=== PATIENT | male | born 1960 | race Hispanic/Latino ===

== ENCOUNTER 2020-02-04 20:00 | Emergency (ER) | payer MEDICARE, OTHER ==
[~2020-02-04] VITALS: Ht 193 cm; Wt 111.6 kg
--- OUTSIDE RECORDS SUMMARY | ~2020-02-04 | XMS | Encounter Summary ---
Demographics + + + | Address | [address] | | | [place] [address] | + + + | Home Phone | | + + + | Preferred Language | Unknown | + + + | Marital Status | | + + + | Hoahaoism Affiliation | 1013 | + + + | Race | White | + + + | Ethnic Group | Not or | + + + Author + + + | Author | [facility] | | | and [place] | + + + | Organization | [facility] | | | and [place] | + + + | Address | Unknown | + + + | Phone | Unavailable | + + + Support + + + + + | Name | Relationship | Address | Phone | + + + + + | Abe Saunders | ECON | Unknown | | + + + + + | Bina Mustafa | ECON | [address] | | | | [place] | | | | | [address] | | + + + + + | Leslie Lentz | ECON | Unknown | | + + + + + Care Team Providers + +------+ + | Care Civil Structural Designer Name | Role | Phone | + +------+ + | Paulo Rothman MD | PCP | | + +------+ + Reason for Visit + +--------+ + | Reason | Onset | Comments | | | Date | | + +--------+ + | Surgery Appointment | 11/25/ | Pre surgical check in time and instructions | | | 2018 | | + +--------+ + Encounter Details +--------+ + + + + | Date | Type | Department | Care Team | Description | +--------+ + + + + | 08/03/ | Telephone | [facility] | Kai Gillespie MD | Surgery Appointment | | 2018 | | NEUROSURGERY [address] | [address] | (Pre surgical check | | | | [address] | [place] [address] | in time and | | | | [place] | [phone] | instructions) | | | | [address] | | | | | | [phone] | | | +--------+ + + + + Social History + + + +--------+ + | Tobacco Use | Types | Packs/Day | Years | Date | | | | | Used | | + + + +--------+ + | Former Smoker | Cigarettes | 1 | | Quit: 08/25/2006 | + + + +--------+ + + +---+---+---+ | Smokeless Tobacco: | | | | | Never Used | | | | + +---+---+---+ + + +---------+ + | Alcohol Use | Drinks/Week | oz/Week | Comments | + + +---------+ + | Yes | 0 Standard drinks | 0.0 | once a month | | | or equivalent | | | + + +---------+ + + + + | Sex Assigned at | Date Recorded | | | | + + + | Not on file | | + + + documented as of this encounter Functional Status + + + + | Functional Status | Response | Date of Assessment | + + + + | Are you deaf or do you have serious | No | 11/15/2016 | | difficulty hearing? | | | + + + + | Are you blind or do you have serious | No | 11/15/2016 | | difficulty seeing, even when wearing | | | | glasses? | | | + + + + | Do you have serious difficulty walking or | No | 11/15/2016 | | climbing stairs? (5 years old or older) | | | + + + + | Do you have difficulty dressing or bathing? | No | 11/15/2016 | | (5 years old or older) | | | + + + + | Because of a physical, mental, or emotional | Yes | 11/15/2016 | | condition, do you have difficulty doing | | | | errands alone such as visiting a doctor's | | | | office or shopping? [15 years old or | | | | older)] | | | + + + + + + + + | Cognitive Status | Response | Date of Assessment | + + + + | Because of a physical, mental, or emotional | No | 11/15/2016 | | condition, do you have serious difficulty | | | | concentrating, remembering, or making | | | | decisions? (5 years old or older) | | | + + + + documented as of this encounter Miscellaneous Notes Telephone Encounter - Jacqueline Doan Cert MA - 11/30/2017 4:09 PM PDTI called and spoke to patient, he will take the date of 12/15/17 for his surgery date. elephone Encounter - Jacqueline Doan Cert MA - 11/28/2017 3:03 PM PDTPatient called and he has been updated that his case needs to g o to a review before we can proceed with scheduling. Patient verbalized understanding. Elect ronically signed by Pierre León MA at 11/28/2017 3:03 PM PDTTelephone Encounter - Erik Romero - 11/28/2017 9:26 AM PDTPatient called in wondering why his surgery tomorrow has been cancelled. Please call back and adviseElectronically signed by Erik Romero at 09/2017 9:26 AM PDTTelephone Encounter - Jacqueline Doan Cert MA - 11/25/2017 11:47 AM PDT All presurgical check-in instructions given to patient. Surgery date: 11/29/17 Check-in Time: 6am (OR Schedule states procedure start time 0745) No solids or liquids after midnight the night before surgery. Follow the cleansing instructions provided beginning the night before surgery after you esme wer or bathe. No showering the morning of surgery. Please do not wear jewelry, contact lenses, nail mauritanian (on fingers or toes), or make-up to surgery check-in. If you have dentures, hearing aids, or glasses please bring the cases with you to check-in. Medications instructions: Aspirin seven days before surgery. Metformin three days before s urgery. Advised to hold Novolin N and Insulin detemir the morning of surgery Surgical Admit Anticipated Disposition reviewed and correct: "Yes Confirmation of procedure/approval: "Yes". PCP contacted to confirm patient cleared to proceed: I confirmed with patient that he has not been seen in the ED or had any surgeries since last saw our providers. ". Confirm local pharmacy: [facility] documented in th is encounter Plan of Treatment Not on filedocumented as of this encounter Visit Diagnoses Not on filedocumented in this encounter
--- OUTSIDE RECORDS SUMMARY | ~2020-02-04 | XMS | Encounter Summary ---
Demographics + + + | Address | [address] | | | [place] [address] | + + + | Home Phone | | + + + | Preferred Language | Unknown | + + + | Marital Status | | + + + | Anabaptism Affiliation | 1013 | + + + | Race | White | + + + | Ethnic Group | Not or | + + + Author + + + | Author | [facility] | | | and [place] | + + + | Organization | [facility] | | | and [...] [place] | | | | | [address] | | + + + + + | Leslie Lentz | ECON | Unknown | | + + + + + Care Team Providers + +------+ + | Care Coil Rewind Machine Operator Name | Role | Phone | + +------+ + | Aggie Dunn NP | PCP | | + +------+ + Reason for Visit +---------+ + | Reason | Comments | +---------+ + | Post Op | 12w PO | +---------+ + Encounter Details +--------+---------+ + + + | Date | Type | Department | Care Team | Description | +--------+---------+ + + + | 03/14/ | Office | [facility] | Jorge Mulligan, | S/P lumbar fusion | | 2017 | Visit | NEUROSURGERY [address] | PA-C [address] | (Primary Dx); Right | | | | [address] | [address] [place] | leg pain | | | | [place], [place] | [place] [address] | | | | | [address] | [phone] | | | | | [phone] | | | +--------+---------+ + + + Social History + + [...] + + documented as of this encounter Last Filed Vital Signs + + + + + | Vital Sign | Reading | Time Taken | Comments | + + + + + | Blood Pressure | 118/79 | 03/14/2018 1:21 PM | | | | | PST | | + + + + + | Pulse | 90 | 03/14/2018 1:21 PM | | | | | PST | | + + + + + | Temperature | - | - | | + + + + + | Respiratory Rate | 16 | 03/14/2018 1:21 PM | | | | | PST | | + + + + + | Oxygen Saturation | - | - | | + + + + + | Inhaled Oxygen | - | - | | | Concentration | | | | + + + + + | Weight | 119.9 kg (264 lb 5.3 | 03/14/2018 1:21 PM | | | | oz) | PST | | + + + + + | Height | 193 cm (6' 4") | 03/14/2018 1:21 PM | | | | | PST | | + + + + + | Body Mass Index | 32.18 | 03/14/2018 1:21 PM | | | | | PST | | + + + + + documented in this encounter Functional Status + + + [...] + + documented as of this encounter Patient Instructions Patient Instructions Renée Treviño, Mri Specialist - 03/14/2018 1:00 PM PSTIt was a pleasure to see you today. Here is what we discussed. We do not want you to wear your brace all the time as it will make your muscles weak. Continue walking but be careful with ice this winter. 3 MONTH POST OP - BACK INSTRUCTIONS -We will get x-rays in 6 months. These have been ordered and we will call and remind you w anjana it is time to get those done. Please let us know after you get your x-rays done by call ing the office. -At your discretion you can slowly start increasing your lifting from 15-30 pounds. Over t messi if you are doing well you can continue and slowly increase your lifting up to 75 pounds. Lastly, it is my recommendation that you limit overhead lifting to less than 50 pounds. -Other than this there are no specific rules. It is our general recommendation is that you progress into all of your new activities slowly and listen to your body. -Let pain be your guide. If you are doing an activity that starts causing you pain back of f and ease back into it slowly. We don't want you taking any risks that do not need to be t aken. -If you have any questions or concerns please feel free to give us a call otherwise you can follow up with your primary care provider. documented in this encounter Progress Notes Jorge Mulligan PA-C - 03/14/2018 1:00 PM PST Jorge Mulligan PA-C [address] [facility], [address] [place] [address] PHONE: FAX: NEUROSURGERY FOLLOW-UP CHIEF COMPLAINT: Chief Complaint Patient presents with Post Op 12w PO HISTORY OF PRESENT ILLNESS: The patient is a 58 y.o. male that had a lumbar fusion for raheem k and leg pain on 12/15/2017. He returns and overall is doing good. The patient mentions that the pain that he was having prior to surgery has improved. The patient has been walking as much as directed. He is taking pain medications at this po int. He has an appointment scheduled next month so that they can take over prescribing him his pain medications. The patient has had no issues with his surgical site. He has been us ing his bone growth stimulator. PAST MEDICAL HISTORY: Past Medical History: Diagnosis Date Anxiety Depression Diabetes mellitus (HCC) Diabetes type 2, controlled (HCC) Graves disease Hearing deficit HTN (hypertension) Lumbar facet joint pain Lumbar radiculopathy MRSA (methicillin resistant Staphylococcus aureus) Peroneal neuropathy RLS (restless legs syndrome) Sleep apnea not used since weight loss Vision disorder deficit Wears dentures upper PAST SURGICAL HISTORY: Past Surgical History: Procedure Laterality Date CHOLECYSTECTOMY 1998 Count [facility]cludes [facility] HIP ARTHROPLASTY 2000 Dr. Castañeda HIP ARTHROPLASTY 2003 Dr. Castañeda LAMINECTOMY N/A 12/15/2017 Procedure: ALIF ANTERIOR APPROACH L5-S1 ALIF, Posterior Hardware Revision with Iliac Fixat ion; Surgeon: Kai Gillespie MD; Location: [facility] MAIN OR LUMBAR SPINE SURGERY Left 11/11/2016 Procedure: L3-4 Lateral Anterior Interbody Fusion, L3-4 Lumbar Decompression & Fusion, L5- S1 Transforaminal Lumbar Interbody Fusion; Surgeon: Kai Gillespie MD; Location: [facility] MAIN OR LUMBAR SPINE SURGERY 2000 Fused [facility] LUMBAR SPINE SURGERY 2015 [facility] TOE AMPUTATION Bilateral 2013, 2016 Dr. Elisabeth [place] TONSILLECTOMY VASECTOMY CURRENT MEDICATIONS: Current Outpatient Prescriptions Medication Sig Dispense Refill acetaminophen (TYLENOL) 500 mg tablet Take 500-1,000 mg by mouth every 8 hours as neede d for Pain or Fever. Ascorbic Acid (VITAMIN C) 1000 MG tablet Take 1,000 mg by mouth Daily. aspirin 81 mg EC tablet Take 81 mg by mouth Daily. atorvaSTATin (LIPITOR) 40 mg tablet Take 40 mg by mouth. cholecalciferol (VITAMIN D-3) 2000 units TABS Take 2,000 Units by mouth Daily. cyanocobalamin (VITAMIN B-12) 1000 MCG tablet Take 1,000 mcg by mouth. cyclobenzaprine (FLEXERIL) 10 mg tablet Take 0.5-1 tablets by mouth 3 times daily as ne eded for Muscle spasms. 90 tablet 2 doxycycline (VIBRAMYCIN) 100 mg capsule Take 100 mg by mouth. DULoxetine (CYMBALTA) [address] capsule Take 60 mg by mouth Daily. 0 gabapentin (NEURONTIN) 300 mg capsule Take 1 capsule by mouth 3 times daily. 90 capsule 1 glucagon (GLUCAGON EMERGENCY) 1 MG injection Inject 1 mg into the muscle as needed (for blood sugar less than 60 and unresponsive). HYDROcodone-acetaminophen (NORCO) 10-325 mg per tablet Take 1-2 tablets by mouth every 4 hours as needed for Pain. 120 tablet 0 ibuprofen (ADVIL,MOTRIN) 600 MG tablet insulin detemir (LEVEMIR) 100 units/mL injection (vial) Inject 80 Units under the skin 2 times daily. insulin lispro (HUMALOG KWIKPEN) 100 units/mL injection (pen) Inject 0-15 Units under t he skin nightly. Per sliding scale: 150-200= 0 units 201-250= 3 units 251-300= 6 units 301-350= 9 units 351-400= 12 units 401-999= 15 units insulin lispro (HUMALOG KWIKPEN) 100 units/mL injection (pen) Inject 3-18 Units under t he skin 3 times daily (before meals). Per sliding scale: 150-200= 3 units 201-250= 6 units 251-300= 9 units 301-350= 12 units 351-400= 15 units 401-999= 18 units irbesartan-hydrochlorothiazide (AVALIDE) 150-12.5 MG per tablet lactulose 10 g/15 mL solution Take 30 mLs by mouth 2 times daily. For constipation 240 mL 2 losartan-hydrochlorothiazide (HYZAAR) 50-12.5 MG per tablet Take 1 tablet by mouth Tim y. magnesium, as oxide, 250 MG tablet Take 250 mg by mouth Daily. metFORMIN (GLUCOPHAGE) 1000 MG tablet Take 1,000 mg by mouth 2 times daily (with breakf ast & dinner). potassium 99 mg tablet Take 99 mg by mouth Daily. traMADol (ULTRAM) 50 mg tablet vancomycin IVPB 1.5 g Inject 1.5 g into the vein every 12 hours. Indications: Complicat ed Skin & Skin Structure Inf. caused by MRSA, Diabetes, Infection, dehiscence of surigic al wound with MRSA and DM hx. Culture pending for gram positive cocci on abdominal incision 56 each 0 No current facility-administered medications for this visit. ALLERGIES: Allergies Allergen Reactions Codeine Other (See Comments) "makes my skin crawl" Morphine Swelling Joint swelling SOCIAL HISTORY: The patient reports that he quit smoking about 11 years ago. His smoking use included Ciga rettes. He smoked 1.00 pack per day. He has never used smokeless tobacco. He reports that he drinks alcohol. He reports that he does not use drugs. FAMILY HISTORY: Family History Problem Relation Age of Onset Other cancer Father STOMACH Other (see comment) Mother BOWEL DISORDER No Known Problems Paternal Grandfather No Known Problems Paternal Grandmother No Known Problems Maternal Grandfather No Known Problems Maternal Grandmother Diabetes, NIDDM Sister No Known Problems Brother No Known Problems Brother No Known Problems Child INTERIM PHYSICAL EXAMINATION: Blood pressure 118/79, pulse 90, resp. rate 16, height 1.93 m (6' 4"), weight 119.9 kg (264 lb 5.3 oz). Body mass index is 32.18 kg/m. REVIEW OF SYSTEMS: GENERALLY: No fever, + night sweats, no anemia, no fatigue, no recent profound weight jeff nges. EYES: No eye problems, no impaired sight, no use of corrective lenses, no eye injury, no d ouble vision, no transient blindness. EARS, NOSE, AND THROAT: No changes in taste or smell, no hearing difficulty, no ringing in the ears, no ear drainage, no ear injury, no dizziness, no voice changes, no difficulty swa llowing, no significant snoring, no sleep apnea/CPAP, no sinus problems, no major dental wor k. NEUROLOGICALLY: Please see the review of systems discussed above in the history of present illness. PSYCHIATRIC: No depression, no difficulty sleeping, no anxiety, no bipolar disorder. CARDIOVASCULAR: No heart attacks, no heart murmur, no heart fluttering, no chest pain, no ankle swelling. LUNG DISEASE: No shortness of breath, no cough, no tuberculosis, no bloody cough, no asth ma, no emphysema/COPD. GASTROINTESTINAL: No bowel disease, no nausea or vomiting, no rectal bleeding, no constipa tion, no fecal stool incontinence, no liver/gallbladder disease, no abdominal pain, no ulcer s. KIDNEY DISEASE: No urinary frequency, no painful or difficult urination, no urinary incont inence, no bladder problems, no impotence. ENDOCRINE: No diabetes, no thyroid disease, no osteopenia or osteoporosis, no breast drain age. SKIN: No breast lumps, no skin disease or skin changes, no rashes/itches. HEMATOLOGIC/LYMPHATIC: No enlarged lymph nodes, no easy or unusual bleeding, no personal h istory of cancer. RHEUMATOLOGIC: No joint pain/arthritis, no rheumatoid arthritis. GENERAL: Fredis Mustafa is in no acute distress with unlabored respirations. SPINE: The patient s incisions are well healed. EXTREMITIES: No lower extremity edema. NEUROLOGICAL EXAMINATION: MENTAL STATUS: The patient is awake, alert, and oriented. He follows simple and complex commands MOTOR EXAM: Motor strength is 5/5 with the exception of right dorsiflexion is 4-/5. This i s improved when compared to the preoperative exam. Right dorsiflexion is 4-/5. SENSORY EXAM: The sensory examination is improved when compared to the preoperative exam. RADIOGRAPHIC REVIEW: The patient s x-rays show stable instrumentation and alignment and were reviewed with the patient today. Increased bony fusion is noted but it is not complete. ASSESSMENT: Encounter Diagnoses Name Primary? S/P lumbar fusion Yes Right leg pain Past Medical History: Diagnosis Date Anxiety Depression Diabetes mellitus (HCC) Diabetes type 2, controlled (HCC) Graves disease Hearing deficit HTN (hypertension) Lumbar facet joint pain Lumbar radiculopathy MRSA (methicillin resistant Staphylococcus aureus) Peroneal neuropathy RLS (restless legs syndrome) Sleep apnea not used since weight loss Vision disorder deficit Wears dentures upper PLAN: Overall, the patient is doing well. Some of the preoperative symptoms are improved. We discussed increasing the patient s activities now allowing a 30 pound lifting restrict ion that can be gradually increased to an as tolerated limit. The patient has weaned their bracing and should increase their exercise gradually as medically tolerated. We would like the patient to advance slowly with this process and discussed this at length during today's visit. We discussed that we can provide pain medications for up to 90 days after their surgical da te. We discussed the need to continue tapering pain medication. If they need longer term p ain medication, they should begin working on either pain management or with the primary care provider. The patient needs follow-up x-rays to assess the fusion in 6 months. We will review the im ages and let the patient know how the fusion has healed. IJorge PA-C, personally performed the services described in this documentati on, as scribed by ALEXUS Erwin, in my presence, and it is both accurate and comple te. Jorge Mulligan PA-C 03/14/18 ELECTRONICALLY SIGNED BY: Jorge Mulligan PA-C, 03/14/2018 14:11 documented in thi s encounter Plan of Treatment + +---------+--------+ + + | Name | Type | Priori | Associated Diagnoses | Order Schedule | | | | ty | | | + +---------+--------+ + + | XR Lumbar Spine 2 or | Imaging | Routin | S/P lumbar fusion | Expected: | | 3 Vw | | e | Right leg pain | 09/10/2018, Expires: | | | | | | 09/10/2019 | + +---------+--------+ + + documented as of this encounter Visit Diagnoses + + | Diagnosis | + + | S/P lumbar fusion - Primary Arthrodesis status | + + | Right leg pain Pain in limb | + + documented in this encounter
--- OUTSIDE RECORDS SUMMARY | ~2020-02-04 | XMS | Encounter Summary ---
Demographics + + + | Address | [address] | | | [place] [address] | + + + | Home Phone | | + + + | Preferred Language | Unknown | + + + | Marital Status | | + + + | Yarsanism Affiliation | 1013 | + + + | Race | White | + + + | Ethnic Group | Not or | + + + Author + + + | Author | [facility] | | | and [place] | + + + | Organization | [facility] | | | and [...] [address] | | | | [place] | | | | | [address] | | + + + + + | Leslie Lentz | ECON | Unknown | | + + + + + Care Team Providers + +------+ + | Care Central Scheduler Name | Role | Phone | + +------+ + PCP | Unavailable | + +------+ + Reason for Visit + +--------+ + | Reason | Onset | Comments | | | Date | | + +--------+ + | Surgery Appointment | 09/16/ | | | | 2016 | | + +--------+ + Encounter Details +--------+ + + + + | Date | Type | Department | Care Team | Description | +--------+ + + + + | 09/16/ | Telephone | [facility] | Kai Gillespie MD | Surgery Appointment | | 2016 | | NEUROSURGERY [address] | [address] | | | | | [address] | [place] [address] | | | | | [place] | [phone] | | | | | [address] | | | | | | [phone] | | | +--------+ + + + [...] | 0 Standard drinks | 0.0 | SOCIAL | | | or equivalent | | | + + +---------+ + + + + | Sex Assigned at | Date Recorded | | | | + + + | Not on file | | + + + documented as of this encounter Miscellaneous Notes Telephone Encounter - Bret Nayak Medical Assistant - 09/16/2016 2:27 PM PDTPatien t scheduled for surgery 11/11/16. Pre-op appointments scheduled. Patient updated of informati on to this point. Electronically signed by Munir Rodriguez at 7 2:48 PM PDTdocumented in this encounter Plan of Treatment Not on filedocumented as of this encounter Visit Diagnoses Not on filedocumented in this encounter"
--- OUTSIDE RECORDS SUMMARY | ~2020-02-04 | XMS | Encounter Summary ---
Demographics + + + | Address | [address] | | | [place] [address] | + + + | Home Phone | | + + + | Preferred Language | Unknown | + + + | Marital Status | | + + + | Sikhism Affiliation | CHR | + + + | Race | White | + + + | Ethnic Group | Not or | + + + Author + + + | Author | [facility] | + + + | Organization | [facility] | + + + | Address | Unknown | + + + | Phone | Unavailable | + + + Support + + +---------+ + | Name | Relationship | Address | Phone | + + +---------+ + | Leslie Lentz | ECON | Unknown | | + + +---------+ + Care Team Providers + +------+ + | Care Director Non Profit Name | Role | Phone | + +------+ + | Aggie Dunn VICE PRESIDENT BUSINESS DEVELOPMENT | PCP | | + +------+ + Reason for Visit AUTH/CERT +--------+--------+ + + + + | Status | Reason | Specialty | Diagnoses / | Referred By | Referred To | | | | | Procedures | Contact | Contact | +--------+--------+ + + + + | | | | | | | +--------+--------+ + + + + Encounter Details +--------+ + + + + | Date | Type | Department | Care Team | Description | +--------+ + + + + | 01/01/ | Anesthesia | [facility] LOC | Betty Acosta MD | | | 2020 | Event | [address] | [address] | | | | | [facility] | [place] [facility], | | | | | [place] [address] | [place] [address] | | | | | | [phone] | | | | | | | | | | | | Vasiliy Reich | | | | | | W, DIRECT SALES CONSULTANT [address] | | | | | | [address] | | | | | | [facility], [place] | | | | | | [address] | | | | | | [phone] | | | | | | | | +--------+ + + + + Anesthesia Record + + + + + | Procedure Name | Responsible | Anesthesia Start | Anesthesia Stop Time | | | Anesthesiologist | Time | | + + + + + | [facility] | Betty Acosta MD | 01/02/20 1024 | 01/02/20 1134 | | VITRECTOMY, ENDO | | | | | LASER, SILICONE OIL, | | | | | MEMBRANE PEEL, LEFT | | | | | *23G* (Left Eye) | | | | + + + + + +----+---+ + + | Da | T | Event | Comment | | te | i | | | | | m | | | | | e | | | +----+---+ + + | 09 | 0 | Eq Check | Anesthesia machine checked Equipment verified | | /0 | 9 | | | | 9/ | 5 | | | | 20 | 9 | | | | 20 | | | | +----+---+ + + | | 0 | Pt. Check | Prior to anesthesia start, pt. Identified, examined, chart | | | 9 | | reviewed, PARQ held, anesthetic plan made or approved by | | | 5 | | attending anesthesiologist. NPO status confirmed as appropriate | | | 9 | | for procedure Preoperative evaluation: unchanged | +----+---+ + + | | 0 | Preprocedur | Pt ID confirmed, informed consent obtained, insertion site | | | 9 | e Checklist | marked, equipment available | | | 5 | | | | | 9 | | | +----+---+ + + | | 1 | | | | | 0 | | | | | 1 | | | | | 7 | | | +----+---+ + + | | 1 | An Start | | | | 0 | | | | | 2 | | | | | 4 | | | +----+---+ + + | | 1 | An Start | | | | 0 | Data | | | | 2 | | | | | 4 | | | +----+---+ + + | | 1 | Vitals | Monitors applied Vital signs checked Patient ready for anesthesia | | | 0 | Checked | | | | 2 | | | | | 8 | | | +----+---+ + + | | 1 | Quick CEI | a) Monitors Placed b) Arms <90 degrees c) Warm Blankets placed | | | 0 | | Upper and Lower Body d) Bed Turned 90 Degrees | | | 2 | | | | | 8 | | | +----+---+ + + | | 1 | O2 by NC | | | | 0 | | | | | 2 | | | | | 8 | | | +----+---+ + + | | 1 | Timeout | | | | 0 | | | | | 2 | | | | | 9 | | | +----+---+ + + | | 1 | Abx held | Pre-incision antibiotic not indicated or already given. | | | 0 | Medical or | | | | 2 | Surgical | | | | 9 | Reason | | +----+---+ + + | | 1 | an justin now | | | | 0 | | | | | 3 | | | | | 0 | | | +----+---+ + + | | 1 | Ready | | | | 0 | | | | | 3 | | | | | 1 | | | +----+---+ + + | | 1 | Retrobulbar | | | | 0 | Block by | | | | 3 | Surgeon | | | | 2 | | | +----+---+ + + | | 1 | Surgery end | | | | 1 | | | | | 2 | | | | | 8 | | | +----+---+ + + | | 1 | an stop | | | | 1 | data | | | | 2 | | | | | 8 | | | +----+---+ + + | | 1 | PACU Rpt | | | | 1 | Given | | | | 3 | | | | | 3 | | | +----+---+ + + | | 1 | Anesthesia | | | | 1 | End | | | | 3 | | | | | 4 | | | +----+---+ + + +------+ | Meds | +------+ + +--------+ | Name | Total | + +--------+ | lidocaine 2% | 50 mg | + +--------+ | propofol | 80 mg | + +--------+ | LR bolus | 200 mL | + +--------+ + + | No agents on file. | + + + + | No blood administrations on file. | + + +--------+ + + + | Type | Details | Placement | Removal | +--------+ + + + | Periph | 01/02/20; 1006; Right; Dorsal; | 01/02/20 1006 by | | | surinderl | Wrist; 22 g | Danielle Fung RN | | | IV | | | | +--------+ + + + | Incisi | 01/02/20; 1102; Left; eye; | 01/02/20 1102 by | 01/02/20 1143 by | | on | 01/02/20; 1143 | Sarah Marin RN | Nickie Capps RN | +--------+ + + + documented in this encounter Social History + + + +--------+ + | Tobacco Use | Types | Packs/Day | Years | Date | | | | | Used | | + + + +--------+ + | Former Smoker | Cigarettes | 1 | | 1983 | + + + +--------+ + + +---+---+---+ | Smokeless Tobacco: | | | | | Never Used | | | | + +---+---+---+ + + +---------+ + | Alcohol Use | Drinks/Week | oz/Week | Comments | + + +---------+ + | No | 0 Standard drinks | 0.0 | | | | or equivalent | | | + + +---------+ + + + + | Sex Assigned at | Date Recorded | | | | + + + | Not on file | | + + + + + + + | COVID-19 Exposure | Response | Date Recorded | + + + + | In the last month, have you been in contact | No / Unsure | 01/02/2020 9:51 AM | | with someone who was confirmed or | | PDT | | suspected to have Coronavirus / COVID-19? | | | + + + + documented as of this encounter OR Notes Anesthesia Postprocedure Evaluation - Vasiliy Reich CRNA - 01/02/2020 11:34 AM PDTF ormatting of this note might be different from the original. Fredis Mustafa [id number] Vitals Value Taken Time BP 97/65 01/02/20 1133 Temp 36.8 C (98.2 F) 01/02/20 1133 Pulse 68 01/02/20 1133 Resp 15 01/02/20 1133 SpO2 96 % 01/02/20 1133 EVALUATION VS (BP, HR, RR, SpO2, and Temp) and hydration status are stable ROS including Cards, Resp, Neuro, and GI without evidence of adverse effects No PONV Pain controlled No altered mental status COMPLICATIONS No adverse events nesthesia Pre procedure Evaluation - Vasiliy Reich CRNA - 01/02/2020 10:16 AM PDTFormatting of thi s note might be different from the original. 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 Betty Salvador in [place] Current Medication List Name Sig Last Dose ATROPINE 1 % EYE DROPS Instill 1 drop into the left eye two times daily. Unknown CEFPODOXIME 200 MG TABLET Unknown CYCLOBENZAPRINE 10 MG TABLET take 1/2-1 tablet by mouth three times a day (DO NOT TAKE WHIL E WORKING OR DRIVING) Unknown DULOXETINE 60 MG CAPSULE,DELAYED RELEASE Unknown GABAPENTIN 300 MG CAPSULE Unknown HYDROCODONE 10 MG-ACETAMINOPHEN 325 MG TABLET take 1-2 tablets by mouth every 8 hours if ne eded for pain Unknown HYDROCODONE 5 MG-ACETAMINOPHEN 325 MG TABLET Take 1-2 tablets by mouth every four hours as needed (moderate or severe pain). Unknown IBUPROFEN 600 MG TABLET Unknown IRBESARTAN 150 MG-HYDROCHLOROTHIAZIDE 12.5 MG TABLET Unknown LEVEMIR U-100 INSULIN 100 UNIT/ML SUBCUTANEOUS SOLUTION Unknown METFORMIN 1,000 MG TABLET Not Taking PREDNISOLONE ACETATE 1 % EYE DROPS,SUSPENSION Instill 1 drop into the left eye four times d aily. Unknown TRAMADOL 50 MG TABLET Unknown No results found for: RATE, ATRIALRATE, MT, QRS, QT, QTC, PAXIS, RAXIS, TAXIS, EKGDX ANESTHESIA PLAN ASA 3 NPO Status: NPO by protocol ANESTHETIC TECHNIQUE Technique Used: MAC MONITORS/LINES TO BE USED Standard POSTOP PAIN Oral analgesics IV analgesics BLOOD PRODUCTS None ordered INFORMED CONSENT PARQ and risks/benefits of anesthetic plan discussed with Patient Dental Risk discussed with patient PATIENT'S CODE STATUS IN OR FULL - full code documented in this enco unter Miscellaneous Notes PMC/ANE PreOp Note - Vasiliy Reich CRNA - 01/02/2020 10:16 AM PDTROS: HPI: PMH: - COVID 19 pneumonia (resolved) Bursitis of right hip Chronic radicular low back pain Deconditioned low back Degenerative joint disease Duodenitis without bleeding Foraminal stenosis of lumbosacral region Generalized OA Hypertension Left foot drop Osteomyelitis of spine (HCC) Pseudoarthrosis of lumbar spine Radicular syndrome of right leg S/P lumbar spinal fusion Spondylolisthesis at L5-S1 leve Spondylolysis of lumbosacral region Type 2 diabetes mellitus (HCC) Prior Anesthetic Problems: No Pulmonary: Dx of sleep apnea BiPAP/CPAP not indicated Cardiovascular: Functional Capacity: Moderate hypertension well controlled GI/Hepatic: no GERD Renal: Within Defined Limits except as noted below Endo: Diabetes: type 2 insulin injections Neuro/Psych: pain Current pain score: 7 Musculoskeletal: arthritis Type: osteoarthritis Physical Exam General: Appearance: Healthy and No distress LOC: Alert Airway: Dentition: dentures-upper missing teeth Dentition Comments: Poor dentition lower Mallampati : 1 Mouth Opening: > 3 cm TM Distance:> 6 cm C-Spine ROM: Limited extension Neck Anatomy: Normal Pulmonary: Respiratory: pulmonary exam normal Breath Sounds: decreased breath sounds Cardiovascular: Rhythm: Regular Rate: Normal documented in this encounter Plan of Treatment Not on filedocumented as of this encounter Visit Diagnoses Not on filedocumented in this encounter Administered Medications + + + +------+------+------+ | Medication Order | MAR | Action | Dose | Rate | Site | | | Action | Date | | | | + + + +------+------+------+ | lactated ringers (LR) bolus | given by | 01/02/20 | | | | | INTRAPROCEDURE CONTINUOUS PRN, | | 20 11:27 | | | | | Starting Tue01/02/20 at 1024, | anesthes | AM PDT | | | | | Until Tue01/02/20 at 1134 | iology | | | | | + + + +------+------+------+ +---------+ +---+---+---+ | New Bag | 01/02/20 | | | | | | 20 10:24 | | | | | | AM PDT | | | | +---------+ +---+---+---+ +---+---+ | | | +---+---+ + +-------+ +-------+---+---+ | lidocaine (XYLOCAINE MPF) 2 % | Given | 01/02/20 | 50 mg | | | | (20 mg/mL) injection | | 20 10:30 | | | | | intravenous, INTRAPROCEDURE PRN, | | AM PDT | | | | | Starting Tue01/02/20 at 1030, | | | | | | | Until Tue01/02/20 at 1134 | | | | | | + +-------+ +-------+---+---+ +---+---+ | | | +---+---+ + +-------+ +-------+---+---+ | propofoL (DIPRIVAN) injection | Given | 01/02/20 | 80 mg | | | | intravenous, INTRAPROCEDURE PRN, | | 20 10:30 | | | | | Starting Tue01/02/20 at 1030, | | AM PDT | | | | | Until Tue01/02/20 at 1134 | | | | | | + +-------+ +-------+---+---+ +---+---+ | | | +---+---+ documented in this encounter
--- OUTSIDE RECORDS SUMMARY | ~2020-02-04 | XMS | Encounter Summary ---
Demographics + + + | Address | [address] | | | [place] [address] | + + + | Home Phone | | + + + | Preferred Language | Unknown | + + + | Marital Status | | + + + | Worship Affiliation | CHR | + + + | Race | White | + + + | Ethnic Group | Not or | + + + Author + + + | Author | [facility] | + + + | Organization | [facility] | + + + | Address | Unknown | + + + | Phone | Unavailable | + + + Support + + +---------+ + | Name | Relationship | Address | Phone | + + +---------+ + | Leslie Lentz | ECON | Unknown | | + + +---------+ + Care Team Providers + +------+ + | Care Biscuit Machine Operator Name | Role | Phone | + +------+ + | Aggie Dunn CANE PACKER | PCP | | + +------+ + [...] | +--------+ + + + + | 12/06/ | Hospital | [facility] | Tammy Serrano, | | | 2019 | Encounter | [address] | [address] | | | | | [address] [facility] | [place]i [place]on | | | | | [place]az[place] | [place], [place] | | | | | [place], [place] | [address] | | | | | [address] | [phone] | | | | | | | [...] | | | + +---+---+---+ + + | Tobacco Cessation: Counseling Given: No | + + + + +---------+ + | Alcohol Use [...] in contact | No / Unsure | 12/06/2019 9:01 AM | | with someone who was confirmed or | | PDT | | suspected to have Coronavirus / COVID-19? | | | + + + + documented as of this encounter Last Filed Vital Signs + + + + + | Vital Sign | Reading | Time Taken | Comments | + + + + + | Blood Pressure | 126/73 | 12/07/2019 7:45 PM | | | | | PDT | | + + + + + | Pulse | 75 | 12/07/2019 7:45 PM | | | | | PDT | | + + + + + | Temperature | 36.9 C (98.4 F) | 12/07/2019 7:45 PM | | | | | PDT | | + + + + + | Respiratory Rate | 18 | 12/07/2019 7:45 PM | | | | | PDT | | + + + + + | Oxygen Saturation | 99% | 12/07/2019 7:45 PM | | | | | PDT | | + + + + + | Inhaled Oxygen | - | - | | | Concentration | | | | + + + + + | Weight | 122.5 kg (270 lb) | 12/07/2019 2:14 PM | | | | | PDT | | + + + + + | Height | 193 cm (6' 4") | 12/07/2019 2:14 PM | | | | | PDT | | + + + + + | Body Mass Index | 32.87 | 12/07/2019 2:14 PM | | | | | PDT | | + + + + + documented in this encounter Discharge Instructions Nuria Atkins RN - 12/07/2019Home Care after Retinal Detachment and Vitrectomy Surgery Do not drive, drink alcoholic beverages, sign legal documents or make major decisions [place] the next 24 hours. Leave the bandage & shield on your eye, clean and dry. Your doctor sheng wade remove it the day after surgery. Resume your previous diet and take your medications as u sual. Eye care ? Your eye patch will be removed in the doctor s office the day after surgery ? Keep it dry ? Please bring all recently prescribed Eye medication to the appointment ? Please do not o rub your operated eye o lift heavy objects o engage in any strenuous exercise or activity for two weeks To help prevent infection: Always wash your hands before caring for your eyes or using eye medicine. Do not touch any part of your eye or skin with the tip of the eye medicine bottle or tub e Special positioning may be required to enhance the surgical repair of your eye. Specific in structions will be given and length of time varies with the type of repair you received. If you have a gas bubble in your eye: Do not sleep flat on your back (this causes the gas bubble to move forward and puts unwante d pressure against your lens and the front of your eye). If a gas bubble is in your eye, thi s could expand as you increase elevation resulting in pain or vision loss; should you experi ence headache, nausea or vision loss you must descend immediately. Please discuss with your physician what elevation is safe to travel to. Air travel is contraindicated with a gas bubb le in your eye and could result in permanent vision loss and blindness. POSITIONING [place] tonight What to expect It is normal after surgery to experience: ? Dull ache / headache ? Slight redness of the eye ? Swelling / discoloration around the eye ? Scratchy sensation ? Droopy eyelid Call your Doctor if Temperature above 101 degrees (fever) Purulent drainage (which is drainage that is whitish-hayden or greenish in color) from the surgical site If there is increased redness at the edges of the surgical site Increased pain, even with pain medication ? You notice decreased vision How to reach your Doctor ? Call (Day or Night) documented in this encounter Medications at Time of Discharge + + + +---------+ + + | Medication | Sig | Dispensed | Refills | Start | End Date | | | | | | Date | | + + + +---------+ + + | cefPODOxime 200 mg | | | 0 | 02/06/20 | | | oral tablet | | | | 16 | | + + + +---------+ + + | cyclobenzaprine 10 | take 1/2-1 tablet by | | 1 | 12/23/19 | | | mg oral tablet | mouth three times a | | | 16 | | | | day (DO NOT TAKE | | | | | | | WHILE WORKING OR | | | | | | | DRIVING) | | | | | + + + +---------+ + + | DULoxetine 60 mg | | | 0 | 01/22/20 | | | oral capsule,delayed | | | | 16 | | | release(/EC) | | | | | | + + + +---------+ + + | gabapentin 300 mg | | | 0 | 01/22/20 | | | oral capsule | | | | 16 | | + + + +---------+ + + | | take 1-2 tablets by | | 0 | 01/23/20 | | | HYDROcodone-acetamin | mouth every 8 hours | | | 16 | | | ophen 10-325 mg oral | if needed for pain | | | | | | tablet | | | | | | + + + +---------+ + + | | Take 1-2 tablets by | 20 | 0 | // | | | HYDROcodone-acetamin | mouth every four | tablet | | 20 | | | ophen 5-325 mg oral | hours as needed | | | | | | tablet | (moderate or severe | | | | | | | pain). | | | | | + + + +---------+ + + | ibuprofen 600 mg | | | 0 | 01/27/20 | | | oral tablet | | | | 16 | | + + + +---------+ + + | | | | 0 | 12/27/19 | | | irbesartan-hydrochlo | | | | 16 | | | rothiazide 150-12.5 | | | | | | | mg oral tablet | | | | | | + + + +---------+ + + | LEVEMIR 100 | | | 0 | 12/25/19 | | | unit/mL subcutaneous | | | | 16 | | | solution | | | | | | + + + +---------+ + + | metFORMIN 1,000 mg | | | 0 | 01/22/20 | | | oral tablet | | | | 16 | | + + + +---------+ + + | traMADol 50 mg | | | 0 | 02/04/20 | | | oral tablet | | | | 16 | | + + + +---------+ + + documented as of this encounter H&P Notes Tammy Serrano MD - 12/07/2019 3:31 PM PDTFormatting of this note might be different f rom the original. History and Physical Service: retina Author: TAMMY SERRANO MD Attending Physician: Tammy Serrano MD Chief complaint/Reason for admission: retinal detachment OS HPI: see clinic note Past Histories Past Medical History: I have updated the Problem List with the patient's relevant diagnoses. Past Medical History Retinal detachment, left Severe nonproliferative diabetic retinopathy of right eye, without macular edema, associat ed with type 2 diabetes mellitus (HCC) Proliferative diabetic retinopathy of left eye without macular edema associated with type 2 diabetes mellitus (HCC) I have updated the Medical History with the patient's relevant diagnoses: Past Medical History: Diagnosis Date Blindness difficulty seeing, worse at present Bursitis of right hip Cataract bilateral cataracts, sp repair Chronic radicular low back pain Deconditioned low back Degenerative joint disease Duodenitis without bleeding Foraminal stenosis of lumbosacral region Generalized OA Hypertension Left foot drop Osteomyelitis of spine (HCC) Pseudoarthrosis of lumbar spine Radicular syndrome of right leg Retinal detachment S/P lumbar spinal fusion Sleep apnea Spondylolisthesis at L5-S1 level Spondylolysis of lumbosacral region Type 2 diabetes mellitus (HCC) Review of Systems: ROS General: negative. All other systems negative. Home Medications: I have obtained and documented the prior to admission medication list and it is accurate. Prior to Admission Medications Prescriptions DULoxetine 60 mg oral capsule,delayed release(DR/EC) HYDROcodone-acetaminophen 10-325 mg oral tablet Sig: take 1-2 tablets by mouth every 8 hours if needed for pain LEVEMIR 100 unit/mL subcutaneous solution LORazepam 1 mg oral tablet Sig: take 1/2 to 1 tablet by mouth twice a day cefPODOxime 200 mg oral tablet cyclobenzaprine 10 mg oral tablet Sig: take 1/2-1 tablet by mouth three times a day (DO NOT TAKE WHILE WORKING OR DRIVING) gabapentin 300 mg oral capsule ibuprofen 600 mg oral tablet irbesartan-hydrochlorothiazide 150-12.5 mg oral tablet metFORMIN 1,000 mg oral tablet traMADol 50 mg oral tablet Facility-Administered Medications: None Allergies I have reviewed and updated the allergy list. Allergies Allergen Reactions Morphine Angioedema Codeine Rash "makes my skin crawl" Social History I have updated the Social Hx as appropriate. Social History Tobacco Use Smoking status: Former Smoker Packs/day: 1.00 Types: Cigarettes Start date: 1983 Last attempt to quit: 1998 Years since quittin.6 Smokeless tobacco: Never Used Substance Use Topics Alcohol use: No Alcohol/week: 0.0 standard drinks Social History Social History Narrative Not on file Family History I have updated the Family Hx as appropriate. Family History Problem Relation Diabetes Mother Heart Disease Mother Cancer Father stomach Heart Disease Father Exam Physical Exam: Last 24 hour min/max Temp: 36.6 C (97.9 F) Temp Min: 36.6 C (97.9 F) Max: 36.6 C (97.9 F) Pulse: 80 Pulse Min: 80 Max: 80 Resp: 18 Resp Min: 18 Max: 18 BP: 121/80 BP Min: 121/80 Max: 121/80 SpO2: 96 % SpO2 Min: 96 % Max: 96 % Body mass index is 32.87 kg/m. Retinal detachment left eye General Appearance: NAD HEENT: see exam note from clinic Neck: Respiratory: clear Cardiovascular: rrr Gastrointestinal: NAD Lymphatic: NAD Musculoskeletal: NAD Skin: normal Neurologic: NAD Psychiatric: N/A Data Data Recent Labs 12/07/19 1433 GLU 101* I have reviewed lab data significant for none. Assessment and Plan: for surgery today - laser OD and PPV OS TAMMY SERRANO MD documented in this encounter Miscellaneous Notes Op Note - Aaron, Zaria A, MD - 12/07/2019 6:47 PM PDTProcedure Date: 12/07/2019 Pre-operative Diagnosis: Total rhegmatogenous retinal detachment, left eye Vitreous hemorrhage, left eye Lattice degeneration, left eye Presumed proliferative diabetic retinopathy, both eyes Post-operative Diagnosis: Rhegmatogenous retinal detachment, left eye Vitreous hemorrhage, left eye Lattice degeneration, left eye Severe non-proliferative diabetic retinopathy, both eyes Procedure: Pars plana vitrectomy, left eye Endolaser photocoagulation, left eye Scleral buckle, left eye Air-fluid exchange, left eye 20% SF6 Gas, left eye Indirect Laser, right eye Surgeon: Tammy Serrano MD Precision Assembler: Zaria Walker MD, PhD Anesthesia: MAC with retrobulbar block, left eye Implant: Buckle elements: #42 and #72 EBL: < 5mL Specimens: None Complications: None Drain: None Indication for Surgery: Carlos Mustafa is a 59 y.o. male with a total rhegmatogenous retinal detachment of the left eye and proliferative diabetic retinopathy vs. severe nonproliferative diabetic retinopathy of the right eye. He now undergoes surgery. Surgical Narrative: The patient was brought into the operating theatre and was placed in supine position. After sufficient sedation was given, a 50:50 mix of 2% xylocaine and 0.75% bupivacaine was inject ed into the retrobulbar space using an Terry needle. Attention was turned to the right eye for light scatter panretinal photocoagulation. Using green laser, a total of 1045 laser aguila were applied to the peripheral retina in the right eye given small area on angiography in clinic yesterday and clinic evidence of at least savita re nonproliferative diabetic retinopathy of the right eye. The laser parameters were set at 0.2 seconds and 200-300 milliwatts of power. A moderate intensity burn was employed. The area around the left eye was then prepped and draped in usual sterile manner for ophtha lmic surgery. A lid speculum was placed and the operating microscope was brought over the ey e. The eye was set up for standard 23-gauge vitrectomy with the infusion trocar in the infra temporal quadrant and instrument trocars in the supratemporal and supranasal quadrants. Meg spr[place] light pipe, vitrector, and the Resight viewing system, vitrectomy was performed. There wa s dense vitreous hemorrhage. Using the vitrector on suction, posterior detachment was induce d. The vitreous was trimmed in all clock hours in systematic fashion. Scleral depression was used to look for breaks in the periphery. There was a total rhegmatogenous retinal detachme nt with a break nasally at 0900. Endodiathermy was used to justin the break. A posterior drai justin retinotomy was created superior to the nerve in mid-periphery using endodiathermy. Air- fluid exchange was performed with the extrusion cannula. The retina was flattened completel y. An endolaser probe was used to perform photocoagulation around the retinotomy and all craig aks and areas of lattice superiorly and superonasally. Decision was made to proceed with sc leral buckle given his family history of retinal detachments and lattice present. A 360-degr ee conjunctival peritomy was performed. The Tenon's capsule was dissected using the Yossi's scissors. Then each rectus muscle was isolated and looped with 2-0 silk sutures. The optic nerve remained perfused throughout the case. A number 42 band was threaded under each of th e rectus muscles and joined in the inferonasal quadrant with a # 72 Watzke sleeve. A 5-0 Jeniffer silene suture was placed in mattress fashion in each quadrant to secure the buckle. The young le was pulled up to the appropriate height and excess elements were trimmed. The eye was ins pected for good buckle contour and absence of suture complications. The 2-0 silk sutures we re removed and the scleral bed was irrigated with Neomycin solution. The sclerotomies and th e conjunctival peritomies were closed using 7-0 Polysorb sutures. The scleral bed was irriga ivan was copious amount of balanced salt solution. As the eye was being closed, the air was e xchanged for 100 mL of 20% SF6 gas. Normal tactile intraocular pressure was confirmed. Decad chuck and Vancomycin were given as subconjunctival injections. Ointment, atropine, a gauze pat ch, and a metal shield were placed over the eye. The patient was moved to the recovery area in satisfactory condition. I certify that the services of which payment is claimed were medically necessary and that n o qualified resident was available to perform the services. I further understand that these services are subject to post-payment review by the Medicare carrier. Tammy Serrano MD documented in this encounter Plan of Treatment Not on filedocumented as of this encounter Procedures + +--------+ + + + | Procedure Name | Priori | Date/Time | Associated Diagnosis | Comments | | | ty | | | | + +--------+ + + + | PROCEDURE NOTE | Routin | 12/07/2019 | | Results for this | | | e | 7:45 PM | | procedure are in the | | | | PDT | | results section. | + +--------+ + + + | CAPILLARY BLOOD | Routin | 12/07/2019 | Retinal | Results for this | | GLUCOSE (NO CHG), | e | 7:42 PM | detachment, left | procedure are in the | | POC | | PDT | | results section. | + +--------+ + + + | CAPILLARY BLOOD | Routin | 12/07/2019 | Retinal | Results for this | | GLUCOSE (NO CHG), | e | 7:24 PM | detachment, left | procedure are in the | | POC | | PDT | | results section. | + +--------+ + + + | CAPILLARY BLOOD | Routin | 12/07/2019 | Retinal | Results for this | | GLUCOSE (NO CHG), | e | 7:07 PM | detachment, left | procedure are in the | | POC | | PDT | | results section. | + +--------+ + + + | CAPILLARY BLOOD | Routin | 12/07/2019 | Retinal | Results for this | | GLUCOSE (NO CHG), | e | 6:50 PM | detachment, left | procedure are in the | | POC | | PDT | | results section. | + +--------+ + + + | VÁSQUEZ RETINAL | | 12/07/2019 | Retinal Detachment | | | PHOTOCOAGULATION | | 3:45 PM | h33.001 Diabetic | | | | | PDT | Retinopathy E11.3491 | | + +--------+ + + + | 23G VITRECTOMY | | 12/07/2019 | Retinal Detachment | | | | | 3:45 PM | h33.001 Diabetic | | | | | PDT | Retinopathy E11.3491 | | + +--------+ + + + | CAPILLARY BLOOD | Routin | 12/07/2019 | Retinal | Results for this | | GLUCOSE (NO CHG), | e | 2:33 PM | detachment, left | procedure are in the | | POC | | PDT | | results section. | + +--------+ + + + documented in this encounter Results PROCEDURE NOTE (12/07/2019 7:45 PM PDT)CAPILLARY BLOOD GLUCOSE (NO CHG), POC (12/07/2019 7:42 PM PDT) + +---------+ + + + | Component | Value | Ref Range | Performed | Pathologist | | | | | At | Signature | + +---------+ + + + | BLOOD | 123 (H) | 70 - 99 mg/dL | [facility] | | | [facility], | | | [facility] | | | POC | | | [facility] | | | | | | [facility] | | | | | | TESTS | | + +---------+ + + + + + | Specimen | + + | Blood | + + + + + + + | Performing | Address | City/State/Zipcode | Phone Number | | Organization | | | | + + + + + | [facility] | [address] | [place], [place] | | | [facility] | [address] | [phone] | | | TESTS | | | | + + + + + CAPILLARY BLOOD GLUCOSE (NO CHG), POC (12/07/2019 7:24 PM PDT) + +-------+ + + + | Component | Value | Ref Range | Performed | Pathologist | | | | | At | Signature | + +-------+ + + + | BLOOD | 78 | 70 - 99 mg/dL | [facility] | | | [facility], | | | [facility] | | | POC | | | [facility] | | | | | | OF CARE | | | | | | TESTS | | + +-------+ + + + + + | Specimen | + + | Blood | + + + + + + + | Performing | Address | City/State/Zipcode | Phone Number | | Organization | | | | + + + + + | [facility] | [address] | [place], [place] | | | [facility] | [address] | [phone] | | | TESTS | | | | + + + + + CAPILLARY BLOOD GLUCOSE (NO CHG), POC (12/07/2019 7:07 PM PDT) + +-------+ + + + | Component | Value | Ref Range | Performed | Pathologist | | | | | At | Signature | + +-------+ + + + | BLOOD | 77 | 70 - 99 mg/dL | [facility] | | | [facility], | | | [facility] | | | POC | | | [facility] | | | | | | OF CARE | | | | | | TESTS | | + +-------+ + + + + + | Specimen | + + | Blood | + + + + + + + | Performing | Address | City/State/Zipcode | Phone Number | | Organization | | | | + + + + + | [facility] | [address] | [place], [place] | | | [facility] | [address] | [phone] | | | TESTS | | | | + + + + + CAPILLARY BLOOD GLUCOSE (NO CHG), POC (12/07/2019 6:50 PM PDT) + +--------+ + + + | Component | Value | Ref Range | Performed | Pathologist | | | | | At | Signature | + +--------+ + + + | BLOOD | 69 (L) | 70 - 99 mg/dL | [facility] | | | [facility], | | | [facility] | | | POC | | | [facility] | | | | | | OF CARE | | | | | | TESTS | | + +--------+ + + + + + | Specimen | + + | Blood | + + + + + + + | Performing | Address | City/State/Zipcode | Phone Number | | Organization | | | | + + + + + | [facility] | [address] | [place], [place] | | | [facility] | [address] | [phone] | | | TESTS | | | | + + + + + CAPILLARY BLOOD GLUCOSE (NO CHG), POC (12/07/2019 2:33 PM PDT) + +---------+ + + + | Component | Value | Ref Range | Performed | Pathologist | | | | | At | Signature | + +---------+ + + + | BLOOD | 101 (H) | 70 - 99 mg/dL | [facility] | | | [facility], | | | [facility] | | | POC | | | [facility] | | | | | | OF CARE | | | | | | TESTS | | + +---------+ + + + + + | Specimen | + + | Blood | + + + + + + + | Performing | Address | City/State/Zipcode | Phone Number | | Organization | | | | + + + + + | [facility] | [phone] | [place], [place] | | | [facility] | [address] | [address] | | | TESTS | | | | + + + + + documented in this encounter Visit Diagnoses + + | Diagnosis | + + | Retinal detachment, left - Primary Unspecified retinal detachment | + + | Proliferative diabetic retinopathy of left eye without macular edema associated with | | type 2 diabetes mellitus (HCC) | + + documented in this encounter Administered Medications + +--------+ +--------+------+------+ | Medication Order | MAR | Action | Dose | Rate | Site | | | Action | Date | | | | + +--------+ +--------+------+------+ | cyclopentolate 1%-PHENYLEPHrine | Given | 12/07/19 | 1 drop | | | | 2.5%-tropicamide 0.25% | | 20 2:27 | | | | | (SUPERDROPS) ophthalmic drops 1 | | PM PDT | | | | | drop 1 drop, Both Eyes, EVERY 5 | | | | | | | MINUTES NEEDED, 2 doses, | | | | | | | Starting 12/07/19 at 1412, | | | | | | | Until 12/08/19 at 0210, | | | | | | | pre-procedure dilation | | | | | | + +--------+ +--------+------+------+ + +---+ | | | + +---+ | fentaNYL (SUBLIMAZE) injection | | | 25-50 mcg 25-50 mcg, | | | intravenous, POSTPROCEDURE PRN, 8 | | | doses, Starting Tue12/07/19 at | | | 1603, Until 12/08/19 at 0210, | | | severe pain while in Phase I | | | Recovery | | + +---+ | | | + +---+ | HYDROcodone-acetaminophen | | | (NORCO) 5-325 mg tablet 1-2 | | | tablet 1-2 tablet, oral, | | | NEEDED, 1 dose, Starting Tue | | | 12/07/19 at 1806, Until Sat | | | 12/08/19 at 0210, post-op moderate | | | pain | | + +---+ | | | + +---+ | lactated ringers (LR) bolus 500 | | | mL 500 mL, intravenous, | | | POSTPROCEDURE PRN, 1 dose, | | | Starting Tue12/07/19 at 1603, | | | Until 12/08/19 at 0210, | | | nausea/vomiting due to | | | dehydration | | + +---+ | | | + +---+ + +---------+ + + +---+ | lactated ringers (LR) infusion | New Bag | 12/07/19 | 10 mL/hr | 10 mL/hr | | | 10 mL/hr, intravenous, | | 20 2:40 | | | | | CONTINUOUS, Starting Tue12/07/19 | | PM PDT | | | | | at 1515, Until 12/08/19 at | | | | | | | 0210 | | | | | | + +---------+ + + +---+ + +---+ | | | + +---+ | naloxone (NARCAN) injection | | | intravenous, POSTPROCEDURE PRN, | | | Starting Tue12/07/19 at 1603, | | | Until 12/08/19 at 0210, | | | hypopnea | | + +---+ | | | + +---+ | oxyCODONE (immediate release) | | | (ROXICODONE) tablet 5-10 mg 5-10 | | | mg, oral, NEEDED, 1 dose, | | | Starting Tue12/07/19 at 1806, | | | Until 12/08/19 at 0210, | | | post-op severe pain | | + +---+ | | | + +---+ documented in this encounter
--- OUTSIDE RECORDS SUMMARY | ~2020-02-04 | XMS | Encounter Summary ---
Demographics + + + | Address | [address] | | | [place] [address] | + + + | Home Phone | | + + + | Preferred Language | Unknown | + + + | Marital Status | | + + + | Mandaeism Affiliation | 1013 | + + + | Race | White | + + + | Ethnic Group | Not or | + + + Author + + + | Author | [facility] | | | and [place] | + + + | Organization | [facility] | | | [...] [address] | | | | | [address] | | + + + + + | Leslie Lentz | ECON | Unknown | | + + + + + Care Team Providers + +------+ + | Care Valve Grinder Name | Role | Phone | + +------+ + PCP | Unavailable | + +------+ + Reason for Visit + + + | Reason | Comments | + + + | Pre-op Exam | | + + + Encounter Details +--------+---------+ + + + | Date | Type | Department | Care Team | Description | +--------+---------+ + + + | 11/08/ | Office | [facility] | Kai Gillespie MD | Pre-op exam (Primary | | 2018 | Visit | NEUROSURGERY [address] | [address] | Dx) | | | | [address] [facility] [address] | [place] [address] | | | | | [place] | [phone] | | | | | [address] | | | | | | [phone] | | | +--------+---------+ + + + [...] + + + | Blood Pressure | 115/80 | 11/08/2017 10:05 AM | | | | | PDT | | + + + + + | Pulse | 90 | 11/08/2017 10:05 AM | | | | | PDT | | + + + + + | Temperature | - | - | | + + + + + | Respiratory Rate | - | - | | + + + + + | Oxygen Saturation | - | - | | + + + + + | Inhaled Oxygen | - | - | | | Concentration | | | | + + + + + | Weight | 115.7 kg (255 lb 1.2 | 11/08/2017 10:05 AM | | | | oz) | PDT | | + + + + + | Height | 193 cm (6' 4") | 11/08/2017 10:05 AM | | | | | PDT | | + + + + + | Body Mass Index | 31.05 | 11/08/2017 10:05 AM | | | | | PDT | [...] + + documented as of this encounter Progress Notes Alexandra Arndt RN - 11/08/2017 10:00 AM PDTPatient in office for pre op appointment. Patient a dvised at this time to stop: Aspirin seven days before surgery. Metformin three days before surgery. Advised to hold Novolin N and Insulin detemir the morning of surgery. Patient kj lized understanding. All questions answered at this time. Patient has a back brace from a previous surgery which he states is in good condition and w ould like to use. I spoke with our brace rep and he states patient received brace approximat clarbiel a year ago and may use it. I asked patient to bring brace with him to surgery, he verbal ized understanding. ulu Soriano, Retail Pharmacist - 11/08/2017 10:00 AM PDTREVIEW OF SYSTEMS GENERALLY: No fever, + night sweats, no anemia, no fatigue, no recent profound weight jeff nges. EYES: No eye problems, no use of corrective lenses, no eye injury, no double vision, no bl indness. EARS, NOSE, AND THROAT: No changes in taste or smell, no hearing difficulty, no ringing in the ears, no ear drainage, no dizziness, no voice changes, no difficulty swallowing, no sig nificant snoring, + sleep apnea, no sinus problems, + major dental work. NEUROLOGICALLY: Please see the review of systems discussed above in the history of present illness. In addition, the patient has pain in back. PSYCHIATRIC: + depression, no sleep disorders, no anxiety, no bipolar disorder, no psychot ic episodes. CARDIOVASCULAR: No heart attacks, no heart murmur, no heart fluttering, no chest pain, no ankle swelling. LUNG DISEASE: No shortness of breath, no cough, no tuberculosis, no bloody cough, no asth ma, no emphysema/COPD. GASTROINTESTINAL: No bowel disease, no nausea or vomiting, no rectal bleeding, no constipa tion, no stool incontinence, no liver disease, no gallbladder disease, no abdominal pain, no ulcers. KIDNEY DISEASE: No urinary frequency, no painful or difficult urination, no incontinence. ENDOCRINE: + diabetes, no thyroid disease, no osteopenia or osteoporosis, no breast draina ge. SKIN: No breast lumps, no skin changes, no rashes, no itches. HEMATOLOGIC/LYMPHATIC: No enlarged lymph nodes, no easy or unusual bleeding, no personal h istory of cancer. RHEUMATOLOGIC: No joint arthritis, no rheumatoid arthritis. Tdocumented in this encounter Plan of Treatment Not on filedocumented as of this encounter Visit Diagnoses + + | Diagnosis | + + | Pre-op exam - Primary Preoperative examination, unspecified | + + documented in this encounter
--- OUTSIDE RECORDS SUMMARY | ~2020-02-04 | XMS | Encounter Summary ---
Demographics + + + | Address | [address] | | | [place] [address] | + + + | Home Phone | | + + + | Preferred Language | Unknown | + + + | Marital Status | | + + + | Taoist Affiliation | 1013 | + + + | Race | White | + + + | Ethnic Group | Not or | + + + Author + + + | Author | [facility] | | | and [place] | + + + | Organization | [facility] | | | [...] + + + + + | Bina Long | ECON | [address] | | | | | [address] | | | | | [address] | | + + + + + | Leslie Lentz | ECON | Unknown | | + + + + + Care Team Providers + +------+ + | Care Paper Control Clerk Name | Role | Phone | + +------+ + PCP | Unavailable | + +------+ + Encounter Details +--------+ + + + + | Date | Type | Department | Care Team | Description | +--------+ + + + + | 04/08/ | Emergency | [facility] | Jazmyn Olvera, | Abdominal pain, | | 2009 | | MEDICAL [facility]ENTER | MD Francis W [facility] | unspecified site | | | | EMERGENCY CENTER | [place], [place] | | | | | [address] [facility] | [id number] | | | | | [place], [place] | | | | | | [address] | | | | | | [phone] | | | +--------+ + + + + Social History + +-------+ +--------+------+ | Tobacco Use | Types | Packs/Day | Years | Date | | | | | Used | | + +-------+ +--------+------+ | Never Assessed | | | | | + +-------+ +--------+------+ + + + | Sex Assigned at | Date Recorded | | | | + + + | Not on file | | + + + documented as of this encounter Plan of Treatment Not on filedocumented as of this encounter Procedures + +--------+ + + + | Procedure Name | Priori | Date/Time | Associated Diagnosis | Comments | | | ty | | | | + +--------+ + + + | XR ABDOMEN AP | Routin | 04/08/2010 | | Results for this | | UPRIGHT KUB AND PA | e | 11:30 AM | | procedure are in the | | CHEST | | PST | | results section. | + +--------+ + + + documented in this encounter Results XR Abd Supine and Upright w 1 Vw Chest (04/08/2010 11:30 AM PST) + + | Specimen | + + | | + + + + + | Narrative | Performed At | + + + | [facility] [id number] Ph: | | | Patient Name: CARLOS LONG Date of : | | | 1960 Medical Record: [id number] Account: [id number] | | | Exam Date/Time: 04/08/2010 10:26 Ordering | | | Physician: JAZMYN OLVERA Order Detail: [id number] Exam Description: | | | XR ABDOMEN ACUTE SERIES | | | | | | HISTORY: Abdominal pain. TECHNIQUE: A PA view of the chest, | | | supine and erect views of the abdomen are obtained. COMPARISON: | | | None. FINDINGS: Frontal view of the chest demonstrates anterior | | | plate and screw fusion of the base of the cervical spine. Heart | | | size is normal. Mild elevation right hemidiaphragm is noted, with | | | medial right basilar atelectasis. Supine and erect films of the | | | abdomen demonstrate transpedicular screws L4 through S1, with | | | bilateral hip prostheses with single screws extending into the | | | innominate bone regions bilaterally. Clips are noted in the right | | | upper quadrant of the abdomen. Gas pattern is normal. No air-fluid | | | levels. IMPRESSION: Mild elevation right hemidiaphragm, with | | | mild bibasilar atelectasis. Fusion L4 through S1. | | | Postoperative changes right upper quadrant, with bilateral hip | | | prostheses. Normal gas pattern. | | + + + + + | Procedure Note | + + | Juni Mcintosh Conversion - 12/17/2018 7:31 PM PDT | | [facility] | | [facility] [address] | | | | | | Patient Name: CARLOS LONG | | Date of : 1960 | | Medical Record: [id number] | | Account: [id number] | | | | | | Exam Date/Time: 04/08/2010 10:26 | | Ordering Physician: JAZMYN OLVERA | | Order Detail: [id number] | | Exam Description: XR ABDOMEN ACUTE SERIES | | | | HISTORY: | | Abdominal pain. | | | | TECHNIQUE: | | A PA view of the chest, supine and erect views of the abdomen are obtained. | | | | | | COMPARISON: | | None. | | | | FINDINGS: | | Frontal view of the chest demonstrates anterior plate and screw fusion of | | the base of the cervical spine. Heart size is normal. Mild elevation | | right hemidiaphragm is noted, with medial right basilar atelectasis. | | | | Supine and erect films of the abdomen demonstrate transpedicular screws L4 | | through S1, with bilateral hip prostheses with single screws extending into | | the innominate bone regions bilaterally. Clips are noted in the right | | upper quadrant of the abdomen. Gas pattern is normal. No air-fluid | | levels. | | | | IMPRESSION: | | Mild elevation right hemidiaphragm, with mild bibasilar atelectasis. | | | | Fusion L4 through S1. | | | | Postoperative changes right upper quadrant, with bilateral hip prostheses. | | | | Normal gas pattern. | | | | | + + documented in this encounter Visit Diagnoses + + | Diagnosis | + + | Abdominal pain, unspecified site | + + documented in this encounter"
--- OUTSIDE RECORDS SUMMARY | ~2020-02-04 | XMS | Encounter Summary ---
Demographics + + + | Address | [address] | | | [place] [address] | + + + | Home Phone | | + + + | Preferred Language | Unknown | + + + | Marital Status | | + + + | Sikh Affiliation | 1013 | + + + | Race | White | + + + | Ethnic Group | Not or | + + + Author + + + | Author | [facility] | | | and [place] | + + + | Organization | [facility] | | | and [...] [place] | | | | | [address] | | + + + + + | Leslie Lentz | ECON | Unknown | | + + + + + Care Team Providers + +------+ + | Care Head Of Ethics And Compliance Name | Role | Phone | + +------+ + | Aggie Dunn NP | PCP | | + +------+ + Reason for Visit + +--------+ + | Reason | Onset | Comments | | | Date | | + +--------+ + | Imaging Only | 09/12/ | 9M PO Lumbar x-rays | | | 2018 | | + +--------+ + Encounter Details +--------+ + + + + | Date | Type | Department | Care Team | Description | +--------+ + + + + | 09/12/ | Telephone | [facility] | Kai Gillespie MD | Imaging Only (9M PO | | 2019 | | NEUROSURGERY [address] | [address] | Lumbar x-rays) | | | | [address] | [place] [address] | | | | | [place] | [phone] | | | | | [address] | | | | | | [phone] | | | +--------+ + + + [...] this encounter Miscellaneous Notes Telephone Encounter - Yanni Arce Cert MA - 10/02/2018 10:59 AM PDTXR results relayed to Sam. YANNI ARCE elephone Jorge Asher PA-C - 10/02/2018 10:08 AM PDTYeah, his x-rays look great. Seeing the m side by side helped a lot thank you. No concerns. JANUARY NORIEGAN. elephone Encounter - Yanni Arce Cert MA - 01/2019 8:45 AM PDTDerek, Please see the images again, I do believe the accounts are now merged together in I-site. Thank you, Yanni elephone Yanni Anderson Cert MA - 09/28/2018 3:20 PM PDTReport received and faxed to [facility] mage library. I asked that they please merge accounts. elephone Encounpatricia r - Yanni Arce Cert MA - 09/28/2018 12:24 PM PDTRequested the report be faxed. Once I r eceive that I will forward to the image library and ask that they combine accounts. Will vandana Patel know when this is done. YANNI ARCE elephone Jorge Asher PA-C - 09/28/2018 11:03 AM PDTI think they look okay. I do not see a nything that I am specifically concerned about. However, there is a lot going on hardware w ise in a small space. Ultimately, I would very much like to compare x-rays [id number]. David dotson let me know when the most recent x-rays are incorporated into his normal account so th at I can compare the [id number] and I will look at them again. elephone Melba - Yanni Arce Cert MA - 09/28/2018 7:51 AM PDTDerek, Please see patient's 9m PO XR and advise. Thank you Yanni elephone Lupe Garcia RAILROAD SUPERVISOR OF ENGINES - 09/25/2018 4:51 PM PDTLumbar x-ray report received. I faxed a request for the images to be pushed to isite. Will forward to provider for review once recei keysha. elephone Encounter - Lulu Soriano, Manager [employer] - 09/12/2018 11:52 AM PDTI left a voicemail for Fredis reminding him to complete his 9M PO Lumbar x-rays at [facility]. I requested a call back once he completes them. We will call him back with the results. documented in this encounter Plan of Treatment Not on filedocumented as of this encounter Visit Diagnoses Not on filedocumented in this encounter"
--- OUTSIDE RECORDS SUMMARY | ~2020-02-04 | XMS | Encounter Summary ---
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 | Evin Rodriguez, | Osteoarthritis of | | 2016 | | MEDICAL CENTER | MD [address] | lumbar spine, | | | | EMERGENCY CENTER | [place] [address] | unspecified spinal | | | | [address] | [phone] | osteoarthritis | | | | [place], [place] | | complication status | | | | [address] | | | | | | [phone] | | | +--------+ + + + [...] + + + | Blood Pressure | 123/64 | 12/06/2015 11:51 AM | | | | | PDT | | + + + + + | Pulse | 75 | 12/06/2015 11:51 AM | | | | | PDT | | + + + + + | Temperature | 36.8 C (98.3 F) | 12/06/2015 11:51 AM | | | | | PDT | | + + + + + | Respiratory Rate | 16 | 12/06/2015 11:51 AM | | | | | PDT | | + + + + + | Oxygen Saturation | - | - | | + + + + + | Inhaled Oxygen | - | - | | | Concentration | | | | + + + + + | Weight | 119.7 kg (263 lb | 12/06/2015 11:51 AM | | | | 14.2 oz) | PDT | | + + + + + | Height | - | - | | + + + + + | Body Mass Index | - | - | | + + + + + documented in this encounter ED Notes Conversion Transaction, Provider Unknown - 12/06/2015 8:50 AM PDTFormatting of this note m ight be different from the original. ED Notes by Yashira Gutiérrez RN at 12/06/1550 Author: Yashira Gutiérrez RN Service: (none) Author Type: Registered Nurse Filed: 12/06/1552 Date of Service: 12/06/15849 Status: Signed Legal Recovery Specialist: Yashira Gutiérrez RN (Registered Nurse) PT has a history of right hip replacement and back surgery with hardware removal and subseq uent infection with PICC line placement and 3 weeks of antibiotics in September 2015. Yashira Gutiérrez RN 12/06/1552 Evin Sunshine MD - 12/06/2015 8:35 AM PDTFormatting of this note might be different from the o gabriel. ED Provider Notes by Evin Rodriguez MD at 12/06/1535 Author: Evin Rodriguez MD Service: (none) Author Type: Physician Filed: 12/07/15 0559 Date of Service: 12/06/15834 Status: Signed Legal Recovery Specialist: Evin Rodriguez MD (Physician) [facility] Department of Emergency Medicine 8:41 AM History of Present Illness Patient Identification Carlos Long is a 55 y.o. male. Patient information was obtained from patient. History/Exam limitations: none. Patient presented to the Emergency Department by: Car Chief Complaint Chief Complaint Patient presents with Hip Pain Back Pain This is a 55 y.o. male with chief complaint of hip pain. Onset of symptoms was a few months ago, with a worsening course since that time. The symptoms are currently described to be of moderate severity. The symptoms are improved by nothing and worsened by movement. Pt states he feels as if a knife is stuck in is right hip, and reports severe pain when he attempts t o walk. Pt also complains of diaphoresis, numbness and tingling (down right leg), and chills . Pt denies any slips, falls, or trips. Pt denies any other pain or symptoms at his time. Pt reports he had both of his hips replaced by Dr. Castañeda, orthopedic surgeon in [place]. He reports he was in a penitentiary for antibiotics, and left in August. Pt denies any localiz ed pain in area of surgery. Pt states he had an MRI done a month ago at [facility]. Pt has been going to physical therapy, his last session being two days ago. He reports he did fine during his one hour session in the water, but during his one hour session on the machines h is hip began hurting. No care prior to arrival reported. PCP: LIBIA GUTIERREZ No past medical history on file. Past Surgical History Procedure Laterality Date Hip surgery Prior to Admission medications Not on File Allergies Allergen Reactions Codeine Other (See Comments) "makes my skin crawl" History Social History Marital Status: Spouse Name: N/A Number of Children: N/A Years of Education: N/A Occupational History Not on file. Social History Main Topics Smoking status: Not on file Smokeless tobacco: Not on file Alcohol Use: Not on file Drug Use: Not on file Sexual Activity: Not on file Other Topics Concern Not on file Social History Narrative No narrative on file No family history on file. Review of Systems Review of Systems Constitutional: Positive for diaphoresis. Musculoskeletal: Positive for joint pain. Neurological: Positive for tingling. Positive for numbness All other systems reviewed and are negative. Physical Exam BP 162/94 mmHg | Pulse 97 | Temp(Src) 98.3 F (36.8 C) | Resp 21 | Wt 119.7 kg (263 lb 1 4.3 oz) | SpO2 97% Vitals: Hypertensive, tachypneic, otherwise normal. Pulse Oximetry Interpretation: Normal General: Alert, in no acute distress, non-toxic Head: Normocephalic. Atraumatic. Eyes: Normal inspection, pupils equal and round, non-icteric, EOM full ENT: Ears and nose normal external inspection Pharynx normal Moist mucous membranes, pink appearing Neck: Normal inspection Supple No lymphadenopathy. No JVD CVS: Rate and rhythm normal No Bruits. No murmurs Respiratory: Breath sounds normal bilaterally, normal chest rise and fall, no obvious traum a Abdomen: Soft, non-distended, Bowel sounds unremarkable. CVA's non-tender. No guarding or r ebound. No masses. No hernias. Rectal deferred Hip: Point tenderness to greater trochanter of the right hip, pain with ROM Back: No point tenderness. Moves without difficulty. Low back non tender with questionable radiation into buttock. Extremities: Moves all extremities without pain or restriction. No obvious deformity. Well perfused. No calf tenderness No leg swelling Skin: Color normal. Warm and dry. No rash noted. Well healed incision lower back and right hip. Neuro: No gross motor/sensory deficits noted. No facial asymmetry Medical Decision Making and Emergency Department Course ED Department Course 8:41 AM Pt presents to the ED complaining of hip pain. On exam, pt has point tenderness ove r the greater trochanter of the right hip with pain with ROM. Pt has no low back tenderness, and questionable radiation into buttock. I feel that the list of possible emergent diagnoses that the patient requires an evaluation for includes (but is not limited to) fracture, sprain, contusion, vs other. I believe that laboratory testing and further diagnostic testing is necessary to ensure that there is no ac rampart emergent cause of the symptoms. 10:49 AM Reviewed MRI results from [facility] Espos[facility]. 11:23 AM Discussed findings with pt. Will give antiinflammatory for swelling. Patient would like to have information for follow up with a [facility] neurosurgeon. Explained to pt the need to monitor blood sugar carefully while on prednisone. I have discussed my clinical impression and treatment plan with the pt. We have specificall y discussed the signs and symptoms that would constitute the need for an immediate return to the ED, the importance of continued outpatient f/u and the importance of compliance with th e d/c instructions. I have answered any questions that the pt has to the best of my ability. Based upon the pt s history, physical exam, ED course, and diagnostic studies, I feel glory t there is no current emergent medical condition that warrants admission, transfer, or furth er ED treatment at this time. Medications sodium chloride 0.9 % flush 10 mL (not administered) predniSONE (DELTASONE) tablet 60 mg (not administered) Filed Vitals: 12/06/1531 12/06/1545 BP: 162/94 115/71 Pulse: 97 80 Temp: 98.3 F (36.8 C) Resp: 21 16 Weight: 119.7 kg (263 lb 14.3 oz) SpO2: 97% 100% Records Reviewed Old medical records. Nursing notes. Previous [facility] ED visits for unrelated complaints. Laboratory Evaluation Results Procedure Component Value Ref Range Date/Time Protime [[id number]] Collected: 12/06/15954 Order Status: Completed Specimen Information: Blood Updated: 12/06/15 1020 INR 1.0 C-reactive protein [[id number]] Collected: 12/06/15954 Order Status: Completed Specimen Information: Blood Updated: 12/06/15 1019 CRP <0.3 <0.5 mg/dL Sedimentation Rate (ESR) [[id number]] Collected: 12/06/15954 Order Status: Completed Specimen Information: Blood Updated: 12/06/15 1019 ESR 1 0 - 20 mm/Hr CBC with differential [[id number]] (Abnormal) Collected: 12/06/15954 Order Status: Completed Specimen Information: Blood Updated: 12/06/15 1011 WBC 8.51 3.80 - 11.00 K/uL RBC 5.31 4.20 - 5.70 M/uL HGB 16.4 13.2 - 17.0 g/dL HCT 47.7 39.0 - 50.0 % MCV 89.8 80.0 - 100.0 fl MCH 30.9 27.0 - 34.0 pg MCHC 34.4 32.0 - 35.5 g/dL RDW SD 44.6 37 - 53 fl PLT 133 (L) 150 - 400 K/uL MPV 10.8 fl DIFF TYPE AUTOMATED NEUTROPHILS 73.30 % LYMPHOCYTES 17.45 % MONOCYTES 8.14 % EOSINOPHILS 0.73 % BASOPHILS 0.38 % NEUTROPHILS ABS 6.24 1.90 - 7.40 K/uL LYMPHOCYTES ABS 1.49 1.00 - 3.90 K/uL MONOCYTES ABS 0.69 0.00 - 0.80 K/uL EOSINOPHILS ABS 0.06 0.00 - 0.50 K/uL BASOPHILS ABS 0.03 0.00 - 0.10 K/uL I personally reviewed the lab results and they have been posted to the chart. Pertinent po sitive and negative findings have been addressed appropriately. Radiology and EKG Evaluation Imaging Results XR Hip Right AP and Lateral (Final result) Result time: 12/06/15 10:04:36 Final result by Rad Results In Arnaldo (12/06/15 10:04:36) Impression: 1. Prior bilateral hip arthroplasty without evidence of hardware breakage or loosening. Narrative: CARLOS LONG XR HIP 2 VIEW RIGHT 12/06/2015 9:31 AM HISTORY: 55 years. Male. Right hip pain TECHNIQUE: XR HIP 2 VIEW RIGHT. Frontal and frog-leg lateral view of the right hip and frontal view of the left hip. Total of 3 images presented for interpretation. COMPARISON: None. FINDINGS: Aniya bilateral total hip arthroplasty. Right hip shows no evidence of fracture or dislocat ion. The cemented femoral component appears well seated. No evidence of hardware breakage or loosening. No periprosthetic fractures XR Lumbar Spine 3 Views (Final result) Result time: 12/06/15 10:06:16 Final result by Rad Results In Arnaldo (12/06/15 10:06:16) Impression: 1. Severe degenerative changes of the lumbar spine but no evidence of fracture or subluxa tion Narrative: CARLOS LONG XR LUMBAR SPINE LIMITED 2-3 VIEW 12/06/2015 9:30 AM HISTORY: 55 years. Male. Lumbar pain no history of trauma TECHNIQUE: XR LUMBAR SPINE LIMITED 2-3 VIEW. Frontal and lateral. Total of 2 images presented for in terpretation. COMPARISON: None. FINDINGS: Severe multilevel degenerative changes of the lumbar spine partially visualized. Disc heigh t loss and vacuum disc changes at nearly all levels. There is no evidence of compression fra cture or subluxation. The L5/S1 foramen is not well profiled and there may be narrowing at t hat level. Sacroiliac joints are symmetric. Patient has had bilateral hip arthroplasty, part ially visualized. ED Diagnosis Final diagnosis Osteoarthritis of lumbar spine, unspecified spinal osteoarthritis complication status Disposition: ED Disposition Orders Discharge Condition at discharge: Stable Follow-up Information Follow up With Details Comments Contact [facility] Emergency Department If symptoms worsen [address] [facility] [address] Kimberly Guido MD Schedule an appointment as soon as possible for a visit For follow up [address] [place] [id number] Discharge Medications: New Prescriptions METHYLPREDNISOLONE 4 MG DOSE PACK Take 6 pills on day one, 5 pills on day two, 4 pills on day three, 3 pills on day four, 2 pills on day five, and 1 pill on day six. Total course six days. Evin Rodriguez MD Procedures Additional Documentation Procedures Attending Note: Documentation assistance provided by Rosy Doan (Scribe). Information recorded by the scribe has been reviewed and validated by . Joseph sierra with its contents. Evin Rodriguez MD 12/07/15 0559 documented in this e ncounter Plan of Treatment Not on filedocumented as of this encounter Procedures + +--------+ + + + | Procedure Name | Priori | Date/Time | Associated Diagnosis | Comments | | | ty | | | | + +--------+ + + + | EXTERNAL LAB: CBC | Routin | 12/06/2015 | | Results for this | | | e | 9:55 AM | | procedure are in the | | | | PDT | | results section. | + +--------+ + + + | SEDIMENTATION RATE, | Routin | 12/06/2015 | | Results for this | | AUTOMATED | e | 9:55 AM | | procedure are in the | | | | PDT | | results section. | + +--------+ + + + | PROTIME INR | Routin | 12/06/2015 | | Results for this | | | e | 9:55 AM | | procedure are in the | | | | PDT | | results section. | + +--------+ + + + | C-REACTIVE PROTEIN | Routin | 12/06/2015 | | Results for this | | | e | 9:55 AM | | procedure are in the | | | | PDT | | results section. | + +--------+ + + + | XR HIP RIGHT 2-3 | Routin | 12/06/2015 | | Results for this | | VIEWS | e | 9:31 AM | | procedure are in the | | | | PDT | | results section. | + +--------+ + + + | XR LUMBAR SPINE 2 OR | Routin | 12/06/2015 | | Results for this | | 3 VW | e | 9:30 AM | | procedure are in the | | | | PDT | | results section. | + +--------+ + + + documented in this encounter Results Sedimentation rate, automated (12/06/2015 9:55 AM PDT) + + + + + + | Component | Value | Ref Range | Performed | Pathologist | | | | | At | Signature | + + + + + + | Sed Rate | 1Comment: Testing | 0 - 20 mm/Hr | EXTERNAL | | | | performed at [facility] | | LAB | | | | [address];[place] | | | | | | [address] | | | | + + + + + + + + | Specimen | + + | Blood specimen | | (specimen) | + + + +---------+ + + | Performing | Address | City/State/Zipcode | Phone Number | | Organization | | | | + +---------+ + + | EXTERNAL LAB | | | | + +---------+ + + Protime INR (12/06/2015 9:55 AM PDT) + + + + + + | Component | Value | Ref Range | Performed | Pathologist | | | | | At | Signature | + + + + + + | INR | 1.0Comment: REFERENCE | | EXTERNAL | | | | RANGE:0.9 - 1.2 | | LAB | | | | NON-ANTICOAGULATED2.0 | | | | | | - 3.0 ALL OTHER | | | | | | THERAPEUTIC | | | | | | INDICATIONS2.5 - 3.5 | | | | | | MECHANICAL HEART VALVES, | | | | | | RECURRENT OR SYSTEMIC | | | | | | EMBOLISMTesting | | | | | | performed at [facility] | | | | | | [facility];[place], [place] | | | | | | [address] | | | | + + + + + + + + | Specimen | + + | Blood specimen | | (specimen) | + + + +---------+ + + | Performing | Address | City/State/Zipcode | Phone Number | | Organization | | | | + +---------+ + + | EXTERNAL LAB | | | | + +---------+ + + External Lab: CBC (12/06/2015 9:55 AM PDT) + + + + + + | Component | Value | Ref Range | Performed | Pathologist | | | | | At | Signature | + + + + + + | WBC | 8.51Comment: Testing | 3.80 - 11.00 | EXTERNAL | | | | performed at [facility];[address] | K/uL | LAB | | | | [address];[place] | | | | | | [address] | | | | + + + + + + | Non- | 5.31Comment: Testing | 4.20 - 5.70 | EXTERNAL | | | Red Blood | performed at [facility];888 | M/uL | LAB | | | Cells | [address];[place] | | | | | Counted | [id number] | | | | + + + + + + | Hemoglobin | 16.4Comment: Testing | 13.2 - 17.0 | EXTERNAL | | | | performed at [facility];888 | g/dL | LAB | | | | [address];[place] | | | | | | [address] | | | | + + + + + + | Hematocrit, | 47.7Comment: Testing | 39.0 - 50.0 % | EXTERNAL | | | POC | performed at [facility];[address] | | LAB | | | | [address];[place] | | | | | | [address] | | | | + + + + + + | MCV | 89.8Comment: Testing | 80.0 - 100.0 fl | EXTERNAL | | | | performed at [facility];[address] | | LAB | | | | [address];[place] | | | | | | [address] | | | | + + + + + + | MCH | 30.9Comment: Testing | 27.0 - 34.0 pg | EXTERNAL | | | | performed at [facility];[address] | | LAB | | | | [address];[place] | | | | | | [address] | | | | + + + + + + | MCHC | 34.4Comment: Testing | 32.0 - 35.5 | EXTERNAL | | | | performed at [facility];888 | g/dL | LAB | | | | [address];[place] | | | | | | [address] | | | | + + + + + + | RDW-CV | 44.6Comment: Testing | 37 - 53 fl | EXTERNAL | | | | performed at [facility];[address] | | LAB | | | | [address];[place] | | | | | | [address] | | | | + + + + + + | Platelet | 133 (L)Comment: Testing | 150 - 400 K/uL | EXTERNAL | | | Count | performed at [facility];[address] | | LAB | | | Plasma | [address];[place] | | | | | | [address] | | | | + + + + + + | MPV | 10.8Comment: Testing | fl | EXTERNAL | | | | performed at [facility];[address] | | LAB | | | | [address];[place] | | | | | | [address] | | | | + + + + + + | Differentia | AUTOMATEDComment: | | EXTERNAL | | | l Type | Testing performed at | | LAB | | | | [facility];[address];[place] [address] | | | | + + + + + + | % Segmented | 73.30Comment: Testing | % | EXTERNAL | | | | performed at [facility];[address] | | LAB | | | Neutrophils | [address];[place] | | | | | | [address] | | | | + + + + + + | % | 17.45Comment: Testing | % | EXTERNAL | | | Lymphocytes | performed at [facility];[address] | | LAB | | | | [address];[place] | | | | | | [address] | | | | + + + + + + | % Monocytes | 8.14Comment: Testing | % | EXTERNAL | | | | performed at [facility];[address] | | LAB | | | | [address];[place] | | | | | | [address] | | | | + + + + + + | % | 0.73Comment: Testing | % | EXTERNAL | | | Eosinophils | performed at [facility];[address] | | LAB | | | | [address];[place] | | | | | | [address] | | | | + + + + + + | % Basophils | 0.38Comment: Testing | % | EXTERNAL | | | | performed at [facility];[address] | | LAB | | | | [address];[place] | | | | | | [address] | | | | + + + + + + | Absolute | 6.24Comment: Testing | 1.90 - 7.40 | EXTERNAL | | | Segmented | performed at [facility];888 | K/uL | LAB | | | Neutrophils | [address];[place] | | | | | | [address] | | | | + + + + + + | Absolute | 1.49Comment: Testing | 1.00 - 3.90 | EXTERNAL | | | Lymphocytes | performed at [facility];888 | K/uL | LAB | | | | [address];[place] | | | | | | [address] | | | | + + + + + + | Absolute | 0.69Comment: Testing | 0.00 - 0.80 | EXTERNAL | | | Monocytes | performed at [facility];888 | K/uL | LAB | | | | [address];[place] | | | | | | [address] | | | | + + + + + + | Absolute | 0.06Comment: Testing | 0.00 - 0.50 | EXTERNAL | | | Eosinophils | performed at [facility];888 | K/uL | LAB | | | | [address];[place] | | | | | | [address] | | | | + + + + + + | Absolute | 0.03Comment: Testing | 0.00 - 0.10 | EXTERNAL | | | Basophils | performed at [facility];[address] | K/uL | LAB | | | | [address];[place] | | | | | | [address] | | | | + + + + + + + + | Specimen | + + | Blood specimen | | (specimen) | + + + +---------+ + + | Performing | Address | City/State/Zipcode | Phone Number | | Organization | | | | + +---------+ + + | EXTERNAL LAB | | | | + +---------+ + + C-Reactive Protein (12/06/2015 9:55 AM PDT) + + + + + + | Component | Value | Ref Range | Performed | Pathologist | | | | | At | Signature | + + + + + + | CRP | <0.3Comment: Testing | mg/dL | EXTERNAL | | | | performed at [facility] | | LAB | | | | [address] [facility];[place], [place] | | | | | | [address] | | | | + + + + + + + + | Specimen | + + | Blood specimen | | (specimen) | + + + +---------+ + + | Performing | Address | City/State/Zipcode | Phone Number | | Organization | | | | + +---------+ + + | EXTERNAL LAB | | | | + +---------+ + + XR Hip Right 2-3 Views (12/06/2015 9:31 AM PDT) + + | Specimen | + + | | + + + + + | Impressions | Performed At | + + + | 1. Prior bilateral hip arthroplasty without evidence of hardware | | | breakage or loosening. | | + + + + + + | Narrative | Performed At | + + + | [facility] XR HIP 2 VIEW RIGHT 12/06/2015 9:31 AM | | | HISTORY: 55 years. Male. Right hip pain TECHNIQUE: XR HIP 2 | | | VIEW RIGHT. Frontal and frog-leg lateral view of the right hip and | | | frontal view of the left hip. Total of 3 images presented for | | | interpretation. COMPARISON: None. FINDINGS: Aniya bilateral | | | total hip arthroplasty. Right hip shows no evidence of fracture or | | | dislocation. The cemented femoral component appears well seated. No | | | evidence of hardware breakage or loosening. No periprosthetic | | | fractures | | + + + + + | Procedure Note | + + | Arnaldo, Rad Conversion - 12/07/2018 1:25 PM PDT CARLOS LONGXR HIP 2 VIEW | | RIGHT12/06/2015 9:31 AM HISTORY:55 years. Male. Right hip pain TECHNIQUE:XR HIP 2 VIEW | | RIGHT. Frontal and frog-leg lateral view of the right hip and frontal view of the left | | hip. Total of 3 images presented for interpretation. COMPARISON:None. FINDINGS:Aniya | | bilateral total hip arthroplasty. Right hip shows no evidence of fracture or | | dislocation. The cemented femoral component appears well seated. No evidence of hardware | | breakage or loosening. No periprosthetic fracturesIMPRESSION: 1. Prior bilateral hip | | arthroplasty without evidence of hardware breakage or loosening. | | | |COMPARISON: | |None. | | | |FINDINGS: | |Aniya bilateral total hip arthroplasty. Right hip shows no evidence of fracture or dislocat ion. The cemented femoral component appears well seated. No evidence of hardware breakage or loosening. No periprosthetic fractures | |IMPRESSION: | |1. Prior bilateral hip arthroplasty without evidence of hardware breakage or loosening. | | | | | | | | | + + XR Lumbar Spine 2 or 3 Vw (12/06/2015 9:30 AM PDT) + + | Specimen | + + | | + + + + + | Impressions | Performed At | + + + | 1. Severe degenerative changes of the lumbar spine but no evidence | | | of fracture or subluxation | | + + + + + + | Narrative | Performed At | + + + | CARLOS LONG XR LUMBAR SPINE LIMITED 2-3 VIEW 12/06/2015 9:30 | | | AM HISTORY: 55 years. Male. Lumbar pain no history of trauma | | | TECHNIQUE: XR LUMBAR SPINE LIMITED 2-3 VIEW. Frontal and lateral. | | | Total of 2 images presented for interpretation. COMPARISON: | | | None. FINDINGS: Severe multilevel degenerative changes of the | | | lumbar spine partially visualized. Disc height loss and vacuum disc | | | changes at nearly all levels. There is no evidence of compression | | | fracture or subluxation. The L5/S1 foramen is not well profiled and | | | there may be narrowing at that level. Sacroiliac joints are | | | symmetric. Patient has had bilateral hip arthroplasty, partially | | | visualized. | | + + + + + | Procedure Note | + + | Arnaldo, Rad Conversion - 12/07/2018 1:25 PM PDT CARLOS LONGXR LUMBAR SPINE | | LIMITED 2-3 VIEW12/06/2015 9:30 AM HISTORY:55 years. Male. Lumbar pain no history of | | trauma TECHNIQUE:XR LUMBAR SPINE LIMITED 2-3 VIEW. Frontal and lateral. Total of 2 | | images presented for interpretation. COMPARISON:None. FINDINGS:Severe multilevel | | degenerative changes of the lumbar spine partially visualized. Disc height loss and | | vacuum disc changes at nearly all levels. There is no evidence of compression fracture | | or subluxation. The L5/S1 foramen is not well profiled and there may be narrowing at | | that level. Sacroiliac joints are symmetric. Patient has had bilateral hip arthroplasty, | | partially visualized.IMPRESSION: 1. Severe degenerative changes of the lumbar spine | | but no evidence of fracture or subluxation | |None. | | | |FINDINGS: | |Severe multilevel degenerative changes of the lumbar spine partially visualized. Disc heigh t loss and vacuum disc changes at nearly all levels. There is no evidence of compression fra cture or subluxation. The L5/S1 | |foramen is not well profiled and there | |may be narrowing at that level. Sacroiliac joints are symmetric. Patient has had bilateral hip arthroplasty, partially visualized. | |IMPRESSION: | |1. Severe degenerative changes of the lumbar spine but no evidence of fracture or subluxat ion | | | | | | | | | + + documented in this encounter Visit Diagnoses + + | Diagnosis | + + | Osteoarthritis of lumbar spine, unspecified spinal osteoarthritis complication status | + + documented in this encounter
--- OUTSIDE RECORDS SUMMARY | ~2020-02-04 | XMS | Encounter Summary ---
Demographics + + + | Address | [address] | | | [place] [address] | + + + | Home Phone | | + + + | Preferred Language | Unknown | + + + | Marital Status | | + + + | Bahai Affiliation | 1013 | + + + | Race | White | + + + | Ethnic Group | Not or | + + + Author + + + | Author | [facility] | | | and [place] | + + + | Organization | [facility] | | | [...] [place] | | | | | [id number] | | + + + + + | Leslie Lentz | ECON | Unknown | | + + + + + Care Team Providers + +------+ + | Care Steel Barrel Reamer Name | Role | Phone | + +------+ + | Paulo Rothman MD | PCP | | + +------+ + Reason for Visit Auth/Cert +--------+--------+ + + + + | Status | Reason | Specialty | Diagnoses / | Referred By | Referred To | | | | | Procedures | Contact | Contact | +--------+--------+ + + + + | | | | Diagnoses | | | | | | | | | | | | | | Radiculopath | | | | | | | y, lumbar | | | | | | | region | | | | | | | Other | | | | | | | biomechanica | | | | | | | l lesions of | | | | | | | lumbar | | | | | | | region | | | | | | | Unspecified | | | | | | | fracture of | | | | | | | unspecified | | | | | | | lumbar | | | | | | | vertebra, | | | | | | | subsequent | | | | | | | encounter | | | | | | | for fracture | | | | | | | with | | | | | | | nonunion | | | | | | | Foot drop, | | | | | | | right foot | | | | | | | Low back | | | | | | | pain Lumbar | | | | | | | | | | | | | | radiculopath | | | | | | | y (M54.16), | | | | | | | Foraminal | | | | | | | stenosis of | | | | | | | lumbar | | | | | | | region | | | | | | | (M99.83), | | | | | | | Right foot | | | | | | | drop | | | | | | | (M21.371), | | | | | | | Pseudoarthro | | | | | | | sis of | | | | | | | lumbar spine | | | | | | | (S32.009K), | | | | | | | Lumbar | | | | | | | facet joint | | | | | | | pain (M54.5) | | | | | | | | | | | | | | Procedures | | | | | | | CT LUMBAR | | | | | | | SPINE | | | | | | | FUSION,ANTER | | | | | | | APPRCH CT | | | | | | | INSJ BIOMCHN | | | | | | | DEV | | | | | | | INTERVERTEBR | | | | | | | AL DSC SPC | | | | | | | W/ARTHRD | | | | | | | ANTERIOR | | | | | | | INSTRUMENTAT | | | | | | | ION 2-3 | | | | | | | VERTEBRAL | | | | | | | SEGMENTS CT | | | | | | | ARTHRODESIS | | | | | | | | | | | | | | POSTERIOR/PO | | | | | | | STEROLATERAL | | | | | | | LUMBAR | | | | | | | POSTERIOR | | | | | | | NON-SEGMENTA | | | | | | | L | | | | | | | INSTRUMENTAT | | | | | | | ION | | | | | | | POSTERIOR | | | | | | | SEGMENTAL | | | | | | | INSTRUMENTAT | | | | | | | ION 3-6 VRT | | | | | | | SEG PELVIC | | | | | | | FIXATION | | | | | | | OTHER THAN | | | | | | | SACRUM CT | | | | | | | SPINE | | | | | | | FUSN,POST | | | | | | | TECH,EA | | | | | | | ADDNL SGMT | | | | | | | ALIF | | | | | | | ANTERIOR | | | | | | | APPROACH | | | | | | | L5-S1 ALIF, | | | | | | | Posterior | | | | | | | Hardware | | | | | | | Revision | | | | | | | with Iliac | | | | | | | Fixation | | | +--------+--------+ + + + + Encounter Details +--------+ + + + + | Date | Type | Department | Care Team | Description | +--------+ + + + + | 12/15/ | Hospital | [facility] | Kai Gillespie MD | Gait abnormality | | 2018 - | Encounter | [facility] | [address] | (Primary Dx) | | | | [address] | [place] [address] | | | 12/19/ | | [place] [address] | [phone] | | | 2018 | | [phone] | | | +--------+ + + + [...] + + + | Blood Pressure | 112/73 | 12/19/2017 7:32 AM | | | | | PDT | | + + + + + | Pulse | 88 | 12/19/2017 1:58 PM | | | | | PDT | | + + + + + | Temperature | 37.4 C (99.3 F) | 12/19/2017 7:32 AM | | | | | PDT | | + + + + + | Respiratory Rate | 20 | 12/19/2017 1:58 PM | | | | | PDT | | + + + + + | Oxygen Saturation | 96% | 12/19/2017 1:58 PM | | | | | PDT | | + + + + + | Inhaled Oxygen | - | - | | | Concentration | | | | + + + + + | Weight | 124.7 kg (274 lb | 12/15/2017 6:55 AM | | | | 14.6 oz) | PDT | | + + + + + | Height | 193 cm (6' 4") | 12/15/2017 6:55 AM | | | | | PDT | | + + + + + | Body Mass Index | 33.46 | 12/15/2017 6:55 AM | | | | | PDT [...] + + documented as of this encounter Discharge Summaries Sonido Palomo PA-C - 12/19/2017 7:33 AM PDTFormatting of this note might be differ ent from the original. DISCHARGE SUMMARY Pt. Name/Age/: Lele Mustafa 57 y.o. 1960 Date of Admission: 12/15/2017 Date of Discharge: 12/19/2017 Admitting Physician: Kai Gillespie MD PCP: Paulo Rothman Discharging Physician: Sonido Palomo PA-C Primary Discharge Dx: Pseudoarthrosis of lumbar spine (S32.009K) Lumbar spondylolisthesis Lumbar foraminal stenosis Lumbar radiculopathy Right foot drop Secondary Discharge Dx: Patient Active Problem List Diagnosis HTN (hypertension) Diabetes mellitus Lumbar facet joint pain Lumbar radiculopathy MRSA (methicillin resistant Staphylococcus aureus) Obesity (BMI 30-39.9) Anxiety Depression Graves disease Diabetes type 2, controlled Obstructive sleep apnea syndrome S/P lumbar fusion Right foot drop Foraminal stenosis of lumbar region Pseudoarthrosis of lumbar spine Reason for Admission (Brief): he patient is a 57 y.o.malethat had a lumbar fusionfor stenosis and radiculopathy on 11/11/2016. Hereturns and overall is doing okay. His back pain is reduced from preoperatively but is also focused low now. It has not improved with time and conservativecare. He also continues to have some right drop foot and weakness that has not improved. He has to use an AFO due to weakness. Hospital Course, including Complications: The patient was admitted for planned surgery. He had a lumbar fusion with hardware revisio n completed without complication. After surgery, there were no events. He had difficulty w ith mobilization. The patient was discharged SNF for continued rehab. He is on Lovenox for a short time until he is more mobile There were no cardiac issues, pulmonary issues, evidence of DVT or infection. Medications Reconciled upon Discharge are: Discharge Medications New Medications Details cyclobenzaprine 10 mg tablet Take 1 tablet by mouth every 8 hours as needed for Muscle spasms. aka: FLEXERIL enoxaparin 40 mg/0.4 mL injection Inject 0.4 mLs under the skin nightly. aka: LOVENOX oxyCODONE 5 mg tablet Take 1-4 tablets by mouth every 4 hours as needed for Pain. aka: ROXICODONE Changed Medications Details gabapentin 300 mg capsule Take 1 capsule by mouth 3 times daily. What changed: how much to take aka: NEURONTIN Unchanged Medications Details aspirin 81 mg EC tablet Take 81 mg by mouth Daily. cholecalciferol 2000 units Tabs Take 2,000 Units by mouth Daily. aka: VITAMIN D-[address] capsule Take 60 mg by mouth Daily. aka: CYMBALTA irbesartan-hydrochlorothiazide 150-12.5 MG per tablet Take 1 tablet by mouth Daily. aka: AVALIDE lactulose 10 g/15 mL solution Take 30 mLs by mouth 2 times daily. LEVEMIR 100 units/mL injection (vial) Generic drug: insulin detemir Inject 80 Units under the skin 2 times daily. magnesium (as oxide) 250 MG tablet Take 250 mg by mouth Daily. metFORMIN 1000 MG tablet Take 1,000 mg by mouth 2 times daily (with breakfast & dinner). aka: GLUCOPHAGE NOVOLIN N 100 units/mL injection Generic drug: insulin NPH Inject under the skin 3 times daily (before meals). Sliding scale potassium 99 mg tablet Take 99 mg by mouth Daily. Discontinued Medications HYDROcodone-acetaminophen 10-325 mg per tablet aka: NORCO Condition on Discharge: Stable Follow-Up Plans: Follow-up: 2 weeks for suture/staple removal. Follow-up with primary care physician as needed. Diet: Resume home diet Activity: Continue to follow guidelines and precautions as previously discussed. Bracing: C Brace Electronically signed by: Sonido Palomo, 12/19/2017 7:33 [facility] documented in this encounter Medications at Time of Discharge + + + +---------+ + + | Medication | Sig | Dispensed | Refills | Start | End Date | | | | | | Date | | + + + +---------+ + + | aspirin 81 mg EC | Take 81 mg by mouth | | 0 | | | | tablet | Daily. | | | | | + + + +---------+ + + | cholecalciferol | Take 2,000 Units by | | 0 | | | | (VITAMIN D-3) 2000 | mouth Daily. | | | | | | units TABS | | | | | | + + + +---------+ + + | DULoxetine | Take 60 mg by mouth | | 0 | 05/19/19 | | | (CYMBALTA) [address] | Daily. | | | 17 | | | capsule | | | | | | + + + +---------+ + + | gabapentin | Take 1 capsule by | 90 | 1 | 12/20/19 | | | (NEURONTIN) 300 mg | mouth 3 times daily. | capsule | | 18 | | | capsule | | | | | | + + + +---------+ + + | ibuprofen | | | 0 | 01/27/20 | | | (ADVIL,MOTRIN) 600 | | | | 16 | | | MG tablet | | | | | | + + + +---------+ + + | insulin detemir | Inject 80 Units | | 0 | 12/25/19 | | | (LEVEMIR) 100 | under the skin 2 | | | 16 | | | units/mL injection | times daily. | | | | | | (vial) | | | | | | + + + +---------+ + + | magnesium, as | Take 250 mg by mouth | | 0 | | | | oxide, 250 MG tablet | Daily. | | | | | + + + +---------+ + + | metFORMIN | Take 1,000 mg by | | 0 | 01/22/20 | | | (GLUCOPHAGE) 1000 MG | mouth. | | | 16 | | | tablet | | | | | | + + + +---------+ + + | metFORMIN | Take 1,000 mg by | | 0 | 01/22/20 | | | (GLUCOPHAGE) 1000 MG | mouth 2 times daily | | | 16 | | | tablet | (with breakfast & | | | | | | | dinner). | | | | | + + + +---------+ + + | potassium 99 mg | Take 99 mg by mouth | | 0 | | | | tablet | Daily. | | | | | + + + +---------+ + + | traMADol (ULTRAM) | | | 0 | 11/29/19 | | | 50 mg tablet | | | | 18 | | + + + +---------+ + + | cyclobenzaprine | Take 1 tablet by | 90 | 2 | 12/20/19 | | | (FLEXERIL) 10 mg | mouth every 8 hours | tablet | | 18 | 8 | | tablet | as needed for Muscle | | | | | | | spasms. | | | | | + + + +---------+ + + | enoxaparin | Inject 0.4 mLs under | 7 | 1 | 12/20/19 | | | (LOVENOX) 40 mg/0.4 | the skin nightly. | Syringe | | 18 | 8 | | mL injection | | | | | | + + + +---------+ + + | | Take 1 tablet by | | 0 | 12/27/19 | | | irbesartan-hydrochlo | mouth Daily. | | | 16 | 8 | | rothiazide (AVALIDE) | | | | | | | 150-12.5 MG per | | | | | | | tablet | | | | | | + + + +---------+ + + | lactulose 10 g/15 | Take 30 mLs by mouth | 240 mL | 5 | 12/20/19 | | | mL solution | 2 times daily. | | | 18 | 8 | + + + +---------+ + + | NOVOLIN N 100 | Inject under the | | 3 | 07/23/19 | | | UNIT/ML injection | skin 3 times daily | | | 17 | 8 | | | (before meals). | | | | | | | Sliding scale | | | | | + + + +---------+ + + | oxyCODONE | Take 1-4 tablets by | 120 | 0 | 12/20/19 | | | (ROXICODONE) 5 mg | mouth every 4 hours | tablet | | 18 | 8 | | tablet | as needed for Pain. | | | | | + + + +---------+ + + documented as of this encounter Progress Notes Sonido Palomo PA-C - 12/23/2017 1:40 PM PDTPhone call from nursing at [facility]. Elif boyd had a small abdominal wound dehiscence. 1 1/2 cm by a couple mm last evening. Bleed seb te a bit. This was stopped last evening and Steri -strips reapplied and wound edges now re- approximated. No drainage or erythema. No fever/chills Advised monitor for problems/ infection. If any concerns then ED evaluation warranted. Call Dr Flores office today or when they are next open to schedule a wound check Juany Albright RN - 2017 3:18 PM PDTPatient was picked up by [facility] transportation from [facility] 15:10. Dressing change to abdomen prior to discharge. Patient had no questions before disc harge. Was very thankful about all the assistance provided during hospital stay. All wounds were clean, no signs of infection. All belongings, including insulin taken with patient.Elec tronically signed by Juany Lovell RN at 12/19/2017 3:22 PM Norman, Kai Billings MD - 2017 9:19 AM PDT [facility] NEUROSURGERY PROGRESS NOTE PATIENT NAME: Lele Mustafa AGE: 57 y.o. DATE OF SERVICE: 12/18/2017 9:19 S: The patient c/o manageable back pain. The patient has been mobilizing well. The leg sy mptoms are at improved from preoperatively. Right foot drop persists. The patient has been voiding and had a bowel movement. He is requiring oxygen HS and has a hx of sleep apnea but has not been using his unit since he lost weight. Plan to go to [facility] on Tuesday when bed available. O: CURRENT MEDICATIONS: Current Facility-Administered Medications Medication Dose Route Frequency Provider Last Rate Last Dose acetaminophen (TYLENOL) tablet 650 mg 650 mg Oral Q4H PRN Sonido Palomo PA-C 650 mg at 12/17/17 1755 aluminum & magnesium hydroxide-simethicone (MAALOX PLUS REGULAR STRENGTH) 200-200-20 mg /5 mL suspension 30 mL 30 mL Oral Q6H PRN Sonido Palomo PA-C bisacodyl (DULCOLAX) suppository 10 mg 10 mg Rectal Daily PRN TIMMY Thompson calcium carbonate (TUMS) chewable tablet 1,000 mg 1,000 mg Oral Q2H PRN Sonido Palomo PA-C cyclobenzaprine (FLEXERIL) tablet 10 mg 10 mg Oral Q8H PRN Sonido Palomo PA-C 10 mg at 12/17/17 1226 dextrose 50% injection 12.5 g 12.5 g Intravenous PRN Sonido Palomo PA-C diphenhydrAMINE (BENADRYL) injection 12.5 mg 12.5 mg Intravenous Q4H PRN Sonido Palomo PA-C Or diphenhydrAMINE (BENADRYL) tablet 25 mg 25 mg Oral Q4H PRN Sonido Palomo PA-C Or diphenhydrAMINE (BENADRYL) 12.5 mg/5 mL liquid 25 mg 25 mg Oral Q4H PRN Sonido Palomo PA-C docusate sodium (COLACE) capsule 100 mg 100 mg Oral BID Sonido Palomo PA-C 10 0 mg at 12/18/17 0813 DULoxetine (CYMBALTA) DR capsule 60 mg 60 mg Oral Daily Sonido Palomo PA-C 60 mg at 12/18/17 0817 enalaprilat (VASOTEC) injection 1.25 mg 1.25 mg Intravenous Q6H PRN Sonido tolentino PA-C enoxaparin (LOVENOX) 40 mg/0.4 mL injection 40 mg 40 mg Subcutaneous Nightly Kai Robledo am, MD famotidine (PEPCID) tablet 20 mg 20 mg Oral BID PRN Sonido Palomo PA-C gabapentin (NEURONTIN) capsule 600 mg 600 mg Oral TID Sonido Palomo PA-C 300 mg at 12/18/17 0818 hydroCHLOROthiazide tablet 12.5 mg 12.5 mg Oral Daily Sonido Palomo PA-C 12.5 mg at 12/18/17 0813 HYDROmorphone (DILAUDID) injection 0.2-0.4 mg 0.2-0.4 mg Intravenous Q1H PRN Sonido Palomo PA-C insulin glargine (LANTUS SOLOSTAR) 100 units/mL injection (pen) 80 Units 80 Units Subc utaneous 2 times per day Sonido Palomo PA-C 80 Units at 12/18/17 0819 insulin lispro (humaLOG KWIKPEN) 100 units/mL injection (pen) 0-18 Units 0-18 Units Villeda bcutaneous 4x Daily WC and HS Sonido Palomo PA-C 3 Units at 12/17/17 1755 labetalol (TRANDATE) 5 mg/mL injection 10 mg 10 mg Intravenous Q1H PRN oSnido Palomo PA-C lactated ringers (LR) infusion Intravenous Continuous Kai Gillespie MD Stopped at 1029 lactulose liquid 30 mL 30 mL Oral BID Sonido Palomo PA-C 30 mL at 12/18/17 08 18 losartan (COZAAR) tablet 50 mg 50 mg Oral Daily Sonido Palomo PA-C 50 mg at 0 12/18/17 0817 magnesium hydroxide (MILK OF MAGNESIA) 400 mg/5 mL suspension 30 mL 30 mL Oral Nightly PRN Sonido Palomo PA-C menthol (HALLS COUGH DROP) lozenge 1 lozenge 1 lozenge Buccal Q2H PRN Sonido addison PA-C metoclopramide (REGLAN) 5 mg/mL injection 10 mg 10 mg Intravenous Q4H PRN Sonido Palomo PA-C metoclopramide (REGLAN) tablet 10 mg 10 mg Oral Q4H PRN Sonido Palomo PA-C ondansetron (ZOFRAN ODT) disintegrating tablet 4 mg 4 mg Oral Q6H PRN Sonido addison PA-C ondansetron (ZOFRAN) injection 4 mg 4 mg Intravenous Q6H PRN Sonido Palomo PA-C oxyCODONE (ROXICODONE) tablet 5-20 mg 5-20 mg Oral Q4H PRN Sonido Palomo PA-C 15 mg at 12/18/17 0814 phenol (CHLORASEPTIC) spray 1-2 spray 1-2 spray Mouth/Throat Q3H PRN Sonido dimas PA-C polyethylene glycol (MIRALAX) powder 17 g 17 g Oral Daily Sonido Palomo PA-C 17 g at 12/18/17 0818 potassium chloride (KLOR-CON) ER tablet 10 mEq 10 mEq Oral Daily Sonido Palomo PA-C 10 mEq at 12/18/17 0817 prochlorperazine (COMPAZINE) tablet 10 mg 10 mg Oral Q6H PRN Sonido Palomo PA-C senna (SENOKOT) tablet 8.6 mg 8.6 mg Oral BID PRN Sonido Palomo PA-C ALLERGIES: Allergies Allergen Reactions Codeine Other (See Comments) "makes my skin crawl" Morphine Swelling Joint swelling PHYSICAL EXAMINATION: Temp: [36.5 C (97.7 F)-37.6 C (99.7 F)] 36.5 C (97.7 F) Pulse: [87-104] 93 Resp: [16-24] 24 BP: (101-128)/(56-76) 114/56 Intake/Output Summary (Last 24 hours) at 12/18/17918 Last data filed at 12/18/17 09 Gross per 24 hour Intake 2240 ml Output 3550 ml Net -1310 ml GENERAL: Lele Mustafa is in no acute distress with unlabored respirations. HEENT: HEAD/FACE: EYES: Normocephalic and atraumatic. There are no areas of recent trauma. Normal sclerae without icterus. CHEST: Clear. HEART: Regular. ABDOMEN Soft and nondistended. EXTREMITIES: No edema or swelling. SCD's BACK: The back incisions are dressed and a drain is in place with expected output. NEUROLOGICAL EXAM: MENTAL STATUS: The patient is awake, alert, and oriented. He follows simple and complex commands. He speech is fluent, his comprehends speech well, and his repeats well. He has no apparent deficits with short or terminal operations manager memory. MOTOR EXAM: Motor strength is stable SENSORY EXAM: Sensory exam is stable 24 HOUR LABS: All Component Based Labs 12/16/17 0613 12/15/17 2045 12/15/17 1710 12/15/17 1325 Glucose, POC 234(H) 216(H) 259(H) 220(H) ASSESSMENT: NEUROSURGICAL DIAGNOSES: S/p lumbar fusion HOSPITAL/GENERAL DIAGNOSES: Past Medical History: Diagnosis Date Anxiety Depression Diabetes mellitus (HCC) Diabetes type 2, controlled (HCC) Graves disease Hearing deficit HTN (hypertension) Lumbar facet joint pain Lumbar radiculopathy MRSA (methicillin resistant Staphylococcus aureus) Peroneal neuropathy RLS (restless legs syndrome) Sleep apnea not used since weight loss Vision disorder deficit Wears dentures upper PLAN: S/p lumbar fusion, Hospital day 3 - Neurologically stable and pain control is appropriate. - Medically stable. Pt has a history of sleep apnea with CPAP at home. PT asked to have uni t brought up to hospital for use tonight to reduce need for supplemental oxygen. - Mobilize, PT/OT - SCD's, Lovenox started - Working on BM/bowel function. Encouraged activity and medications to assist - No drain is present - Disp: The patient has requested a SNF. Bed at [facility] ready on Tuesday ELECTRONICALLY SIGNED BY: Kai Gillespie MD, 12/18/2017 9:19 Sonia Ware PA-C - 12/17/2017 7:35 AM PDTFo rmatting of this note might be different from the original. [facility] NEUROSURGERY PROGRESS NOTE PATIENT NAME: Lele Mustafa AGE: 57 y.o. DATE OF SERVICE: 12/17/2017 7:35 S: The patient c/o manageable back pain. The patient has been mobilizing well. The leg sy mptoms are at improved from preoperatively. Right foot drop persists. The patient has been voiding and had a bowel movement. He is requiring oxygen HS and has a hx of sleep apnea but has not been using his unit since he lost weight. Plan to go to [facility] on Tuesday when bed available. O: CURRENT MEDICATIONS: Current Facility-Administered Medications Medication Dose Route Frequency Provider Last Rate Last Dose acetaminophen (TYLENOL) tablet 650 mg 650 mg Oral Q4H PRN Sonido Palomo PA-C 650 mg at 12/16/17 1456 aluminum & magnesium hydroxide-simethicone (MAALOX PLUS REGULAR STRENGTH) 200-200-20 mg /5 mL suspension 30 mL 30 mL Oral Q6H PRN Sonido Palomo PA-C bisacodyl (DULCOLAX) suppository 10 mg 10 mg Rectal Daily PRN ITMMY Thompson calcium carbonate (TUMS) chewable tablet 1,000 mg 1,000 mg Oral Q2H PRN Sonido Palomo PA-C cyclobenzaprine (FLEXERIL) tablet 10 mg 10 mg Oral Q8H PRN Sonido Palomo PA-C 10 mg at 12/16/17 0744 dextrose 50% injection 12.5 g 12.5 g Intravenous PRN Sonido Palomo PA-C diphenhydrAMINE (BENADRYL) injection 12.5 mg 12.5 mg Intravenous Q4H PRN Sonido Palomo PA-C Or diphenhydrAMINE (BENADRYL) tablet 25 mg 25 mg Oral Q4H PRN Sonido Palomo PA-C Or diphenhydrAMINE (BENADRYL) 12.5 mg/5 mL liquid 25 mg 25 mg Oral Q4H PRN Sonido Palomo PA-C docusate sodium (COLACE) capsule 100 mg 100 mg Oral BID Sonido Palomo PA-C 10 0 mg at 12/15/172044 DULoxetine (CYMBALTA) DR capsule 60 mg 60 mg Oral Daily Sonido Palomo PA-C 60 mg at 12/16/17 0853 enalaprilat (VASOTEC) injection 1.25 mg 1.25 mg Intravenous Q6H PRN Sonido tolentino PA-C famotidine (PEPCID) tablet 20 mg 20 mg Oral BID PRN Sonido Palomo PA-C gabapentin (NEURONTIN) capsule 600 mg 600 mg Oral TID Sonido Palomo PA-C 600 mg at 12/16/17 2030 hydroCHLOROthiazide tablet 12.5 mg 12.5 mg Oral Daily Sonido Palomo PA-C 12.5 mg at 12/16/17 1218 HYDROmorphone (DILAUDID) injection 0.2-0.4 mg 0.2-0.4 mg Intravenous Q1H PRN Sonido Palomo PA-C insulin glargine (LANTUS SOLOSTAR) 100 units/mL injection (pen) 80 Units 80 Units Subc utaneous 2 times per day Sonido Palomo PA-C 80 Units at 12/16/172031 insulin lispro (humaLOG KWIKPEN) 100 units/mL injection (pen) 0-18 Units 0-18 Units Villeda bcutaneous 4x Daily WC and HS Sonido Palomo PA-C 6 Units at 12/16/17 0850 labetalol (TRANDATE) 5 mg/mL injection 10 mg 10 mg Intravenous Q1H PRN Sonido Palomo PA-C lactated ringers (LR) infusion Intravenous Continuous Kai Gillespie MD Stopped at 1029 lactulose liquid 30 mL 30 mL Oral BID Sonido Paolmo PA-C 30 mL at 12/15/17 20 46 losartan (COZAAR) tablet 50 mg 50 mg Oral Daily Sonido Palomo PA-C 50 mg at 0 12/16/17 0855 magnesium hydroxide (MILK OF MAGNESIA) 400 mg/5 mL suspension 30 mL 30 mL Oral Nightly PRN Sonido Palomo PA-C menthol (HALLS COUGH DROP) lozenge 1 lozenge 1 lozenge Buccal Q2H PRN Sonido addison PA-C metoclopramide (REGLAN) 5 mg/mL injection 10 mg 10 mg Intravenous Q4H PRN Sonido Palomo PA-C metoclopramide (REGLAN) tablet 10 mg 10 mg Oral Q4H PRN Sonido Palomo PA-C ondansetron (ZOFRAN ODT) disintegrating tablet 4 mg 4 mg Oral Q6H PRN Sonido addison PA-C ondansetron (ZOFRAN) injection 4 mg 4 mg Intravenous Q6H PRN Sonido Palomo PA-C oxyCODONE (ROXICODONE) tablet 5-20 mg 5-20 mg Oral Q4H PRN Sonido Palomo PA-C 15 mg at 12/17/17 0604 phenol (CHLORASEPTIC) spray 1-2 spray 1-2 spray Mouth/Throat Q3H PRN Sonido dimas PA-C polyethylene glycol (MIRALAX) powder 17 g 17 g Oral Daily Sonido Palomo PA-C 17 g at 12/15/17 1727 potassium chloride (KLOR-CON) ER tablet 10 mEq 10 mEq Oral Daily Sonido Palomo PA-C 10 mEq at 12/16/17 0855 prochlorperazine (COMPAZINE) tablet 10 mg 10 mg Oral Q6H PRN Sonido Palomo PA-C senna (SENOKOT) tablet 8.6 mg 8.6 mg Oral BID PRN Sonido Palomo PA-C ALLERGIES: Allergies Allergen Reactions Codeine Other (See Comments) "makes my skin crawl" Morphine Swelling Joint swelling PHYSICAL EXAMINATION: Temp: [37 C (98.6 F)-38.1 C (100.6 F)] 37 C (98.6 F) Pulse: [90-133] 96 Resp: [18-32] 18 BP: (98-139)/(53-74) 108/67 Intake/Output Summary (Last 24 hours) at 12/17/17 0735 Last data filed at 12/17/17 0556 Gross per 24 hour Intake 1870 ml Output 3000 ml Net -1130 ml GENERAL: Lele Mustafa is in no acute distress with unlabored respirations. HEENT: HEAD/FACE: EYES: Normocephalic and atraumatic. There are no areas of recent trauma. Normal sclerae without icterus. CHEST: Clear. HEART: Regular. ABDOMEN Soft and nondistended. EXTREMITIES: No edema or swelling. SCD's BACK: The back incisions are dressed and a drain is in place with expected output. NEUROLOGICAL EXAM: MENTAL STATUS: The patient is awake, alert, and oriented. He follows simple and complex commands. He speech is fluent, his comprehends speech well, and his repeats well. He has no apparent deficits with short or terminal operations manager memory. MOTOR EXAM: Motor strength is stable SENSORY EXAM: Sensory exam is stable 24 HOUR LABS: All Component Based Labs 12/16/17 0613 12/15/17 2045 12/15/17 1710 12/15/17 1325 Glucose, POC 234(H) 216(H) 259(H) 220(H) ASSESSMENT: NEUROSURGICAL DIAGNOSES: S/p lumbar fusion HOSPITAL/GENERAL DIAGNOSES: Past Medical History: Diagnosis Date Anxiety Depression Diabetes mellitus (HCC) Diabetes type 2, controlled (HCC) Graves disease Hearing deficit HTN (hypertension) Lumbar facet joint pain Lumbar radiculopathy MRSA (methicillin resistant Staphylococcus aureus) Peroneal neuropathy RLS (restless legs syndrome) Sleep apnea not used since weight loss Vision disorder deficit Wears dentures upper PLAN: S/p lumbar fusion, Hospital day 2 - Neurologically stable and pain control is appropriate. - Medically stable. Pt has a history of sleep apnea with CPAP at home. PT asked to have uni t brought up to hospital for use tonight to reduce need for supplemental oxygen. - Mobilize, PT/OT - SCD's - Working on BM/bowel function. Encouraged activity and medications to assist - No drain is present - Disp: The patient has requested a SNF. Bed at [facility] on Tuesday ELECTRONICALLY SIGNED BY: Benton Garza PA-C, 12/17/2017 7:35 est, Sonido Manley PA-C - 12/17/19 7:42 AM PDT [facility] NEUROSURGERY PROGRESS NOTE PATIENT NAME: Lele Mustafa AGE: 57 y.o. DATE OF SERVICE: 12/16/2017 7:42 S: The patient c/o manageable back pain. The patient has been mobilizing well. The leg sy mptoms are at improved from preoperatively. The patient has been voiding and had a bowel movement. O: CURRENT MEDICATIONS: Current Facility-Administered Medications Medication Dose Route Frequency Provider Last Rate Last Dose acetaminophen (TYLENOL) tablet 650 mg 650 mg Oral Q4H PRN Sonido Palomo PA-C aluminum & magnesium hydroxide-simethicone (MAALOX PLUS REGULAR STRENGTH) 200-200-20 mg /5 mL suspension 30 mL 30 mL Oral Q6H PRN Sonido Palomo PA-C bisacodyl (DULCOLAX) suppository 10 mg 10 mg Rectal Daily PRN TIMMY Thompson calcium carbonate (TUMS) chewable tablet 1,000 mg 1,000 mg Oral Q2H PRN Sonido Palomo PA-C cyclobenzaprine (FLEXERIL) tablet 10 mg 10 mg Oral Q8H PRN Sonido Palomo PA-C dextrose 50% injection 12.5 g 12.5 g Intravenous PRN Sonido Palomo PA-C diphenhydrAMINE (BENADRYL) injection 12.5 mg 12.5 mg Intravenous Q4H PRN Sonido Palomo PA-C Or diphenhydrAMINE (BENADRYL) tablet 25 mg 25 mg Oral Q4H PRN Sonido Palomo PA-C Or diphenhydrAMINE (BENADRYL) 12.5 mg/5 mL liquid 25 mg 25 mg Oral Q4H PRN Sonido Palomo PA-C docusate sodium (COLACE) capsule 100 mg 100 mg Oral BID Sonido Palomo PA-C 10 0 mg at 08/23/18 2045 DULoxetine (CYMBALTA) DR capsule 60 mg 60 mg Oral Daily Sonido Palomo PA-C enalaprilat (VASOTEC) injection 1.25 mg 1.25 mg Intravenous Q6H PRN Sonido tolentino PA-C famotidine (PEPCID) tablet 20 mg 20 mg Oral BID PRN Sonido Palomo PA-C gabapentin (NEURONTIN) capsule 600 mg 600 mg Oral TID Sonido Palomo PA-C 600 mg at 12/15/172044 hydroCHLOROthiazide tablet 12.5 mg 12.5 mg Oral Daily Sonido Palomo PA-C HYDROmorphone (DILAUDID) injection 0.2-0.4 mg 0.2-0.4 mg Intravenous Q1H PRN Sonido Palomo PA-C insulin glargine (LANTUS SOLOSTAR) 100 units/mL injection (pen) 80 Units 80 Units Subc utaneous 2 times per day Sonido Palomo PA-C 80 Units at 12/15/172050 insulin lispro (humaLOG KWIKPEN) 100 units/mL injection (pen) 0-18 Units 0-18 Units [place]illeda bcutaneous 4x Daily WC and HS Sonido Palomo PA-C 3 Units at 12/15/172051 labetalol (TRANDATE) 5 mg/mL injection 10 mg 10 mg Intravenous Q1H PRN Sonido Palomo PA-C lactated ringers (LR) infusion Intravenous Continuous Kai Gillespie MD 50 mL/hr at 0740 lactulose liquid 30 mL 30 mL Oral BID Sonido Palomo PA-C 30 mL at 12/15/17 20 46 losartan (COZAAR) tablet 50 mg 50 mg Oral Daily Sonido Palomo PA-C [START ON 12/17/2017] magnesium hydroxide (MILK OF MAGNESIA) 400 mg/5 mL suspension 30 m L 30 mL Oral Nightly PRN Sonido Palomo PA-C menthol (HALLS COUGH DROP) lozenge 1 lozenge 1 lozenge Buccal Q2H PRN Sonido addison PA-C metoclopramide (REGLAN) 5 mg/mL injection 10 mg 10 mg Intravenous Q4H PRN Sonido Palomo PA-C metoclopramide (REGLAN) tablet 10 mg 10 mg Oral Q4H PRN Sonido Palomo PA-C ondansetron (ZOFRAN ODT) disintegrating tablet 4 mg 4 mg Oral Q6H PRN Sonido addison PA-C ondansetron (ZOFRAN) injection 4 mg 4 mg Intravenous Q6H PRN Sonido Palomo PA-C oxyCODONE (ROXICODONE) tablet 5-20 mg 5-20 mg Oral Q4H PRN Sonido Palomo PA-C 20 mg at 12/16/17 0613 phenol (CHLORASEPTIC) spray 1-2 spray 1-2 spray Mouth/Throat Q3H PRN Sonido dimas PA-C polyethylene glycol (MIRALAX) powder 17 g 17 g Oral Daily Sonido Palomo PA-C 17 g at 12/15/17 1727 potassium chloride (KLOR-CON) ER tablet 10 mEq 10 mEq Oral Daily Sonido Palomo PA-C 10 mEq at 12/15/17 1728 prochlorperazine (COMPAZINE) tablet 10 mg 10 mg Oral Q6H PRN Sonido Palomo PA-C senna (SENOKOT) tablet 8.6 mg 8.6 mg Oral BID PRN Sonido Palomo PA-C ALLERGIES: Allergies Allergen Reactions Codeine Other (See Comments) "makes my skin crawl" Morphine Swelling Joint swelling PHYSICAL EXAMINATION: Temp: [36 C (96.8 F)-37.1 C (98.8 F)] 37.1 C (98.8 F) Pulse: [88-102] 95 Resp: [14-21] 18 BP: (97-145)/(54-104) 108/64 Intake/Output Summary (Last 24 hours) at 12/16/17 0742 Last data filed at 12/16/17 0620 Gross per 24 hour Intake 4611 ml Output 2300 ml Net 2311 ml GENERAL: Lele Mustafa is in no acute distress with unlabored respirations. HEENT: HEAD/FACE: EYES: Normocephalic and atraumatic. There are no areas of recent trauma. Normal sclerae without icterus. CHEST: Clear. HEART: Regular. ABDOMEN Soft and nondistended. EXTREMITIES: No edema or swelling. SCD's BACK: The back incisions are dressed and a drain is in place with expected output. NEUROLOGICAL EXAM: MENTAL STATUS: The patient is awake, alert, and oriented. He follows simple and complex commands. He speech is fluent, his comprehends speech well, and his repeats well. He has no apparent deficits with short or senior living memory. MOTOR EXAM: Motor strength is stable SENSORY EXAM: Sensory exam is stable 24 HOUR LABS: All Component Based Labs 12/16/17 0613 12/15/17 2045 12/15/17 1710 12/15/17 1325 Glucose, POC 234(H) 216(H) 259(H) 220(H) ASSESSMENT: NEUROSURGICAL DIAGNOSES: S/p lumbar fusion HOSPITAL/GENERAL DIAGNOSES: Past Medical History: Diagnosis Date Anxiety Depression Diabetes mellitus (HCC) Diabetes type 2, controlled (HCC) Graves disease Hearing deficit HTN (hypertension) Lumbar facet joint pain Lumbar radiculopathy MRSA (methicillin resistant Staphylococcus aureus) Peroneal neuropathy RLS (restless legs syndrome) Sleep apnea not used since weight loss Vision disorder deficit Wears dentures upper PLAN: S/p lumbar fusion, Hospital day 1 - Neurologically stable and pain control is appropriate. - Medically stable - Mobilize, PT/OT - SCD's - Working on BM/bowel function. Encouraged activity and medications to assist - No drain is present - Disp: The patient has requested a SNF ELECTRONICALLY SIGNED BY: Sonido Palomo PA-C, 12/16/2017 7:42 documented in this encounter H&P Notes Kai Gillespie MD - 12/15/2017 7:38 AM PDTFormatting of this note might be different from t he original. Kai Gillespie MD [address] [place] [address], [address] [place] [address] FAX: NEUROSURGERY FOLLOW-UP CHIEF COMPLAINT: Chief Complaint Patient presents with Follow-up Discuss Surgery HISTORY OF PRESENT ILLNESS: The patient is a 57 y.o. male that had a lumbar fusion for cali nosis and radiculopathy on 11/11/2016. He returns and overall is doing okay. His back pain is reduced from preoperatively but is also focused low now. It has not improved with time a nd conservativecare. He also continues to have some right drop foot and weakness that has not improved. He has to use an AFO due to weakness. PAST MEDICAL HISTORY: Past Medical History: Diagnosis [...] Surgical History: Procedure Laterality Date CHOLECYSTECTOMY 1998 [facility] HIP ARTHROPLASTY 2000 Dr. Castañeda HIP ARTHROPLASTY 2003 Dr. Castañeda LUMBAR SPINE SURGERY Left 11/11/2016 Procedure: L3-4 Lateral Anterior Interbody Fusion, L3-4 Lumbar Decompression & Fusion, L5- S1 Transforaminal Lumbar Interbody Fusion; Surgeon: Kai Gillespie MD; Location: [facility] MAIN OR LUMBAR SPINE SURGERY 1999 [facility] LUMBAR SPINE SURGERY 2014 [facility] TOE AMPUTATION Bilateral 2013, 2016 Dr. Elisabeth Moser TONSILLECTOMY VASECTOMY CURRENT MEDICATIONS: Prior to Admission medications Medication Sig aspirin 81 mg EC tablet Take 81 mg by mouth Daily. cholecalciferol (VITAMIN D-3) 2000 units TABS Take 2,000 Units by mouth Daily. DULoxetine (CYMBALTA) [address] capsule Take 60 mg by mouth Daily. gabapentin (NEURONTIN) 300 mg capsule Take 2 capsules by mouth 3 times daily. HYDROcodone-acetaminophen (NORCO) 10-325 mg per tablet Take 1-2 tablets by mouth every 4 ho urs as needed for Pain. insulin detemir (LEVEMIR) 100 units/mL injection (vial) Inject 80 Units under the skin 2 ti mes daily. irbesartan-hydrochlorothiazide (AVALIDE) 150-12.5 MG per tablet Take 1 tablet by mouth Tim y. lactulose 10 g/15 mL solution Take 30 mLs by mouth 2 times daily. magnesium, as oxide, 250 MG tablet Take 250 mg by mouth Daily. metFORMIN (GLUCOPHAGE) 1000 MG tablet Take 1,000 mg by mouth 2 times daily (with breakfast & dinner). NOVOLIN N 100 UNIT/ML injection Inject under the skin 3 times daily (before meals). Slidin g scale potassium 99 mg tablet Take 99 mg by mouth Daily. ALLERGIES: Allergies Allergen Reactions Codeine Other (See Comments) "makes my skin crawl" Oxycodone Tremor Morphine Swelling Joint swelling SOCIAL HISTORY: The patient reports that he quit smoking about 11 years ago. His smoking use included Ciga rettes. He smoked 1.00 pack per day. He has never used smokeless tobacco. He reports that he drinks alcohol. He reports that he does not use drugs. REVIEW OF SYSTEMS GENERALLY: No fever, + night sweats, no anemia, no fatigue, no recent profound weight jeff nges. EYES: No eye problems, + use of corrective lenses, no eye injury, no double vision, no bli ndness. EARS, NOSE, AND THROAT: No changes in taste or smell, no hearing difficulty, no ringing in the ears, no ear drainage, no dizziness, no voice changes, no difficulty swallowing, no sig nificant snoring, + sleep apnea, no sinus problems, no major dental work. NEUROLOGICALLY: Please see the review of systems discussed above in the history of present illness. In addition, the patient has numbness/pain of legs, back injury, pain in back. PSYCHIATRIC: No depression, no sleep disorders, no anxiety, no bipolar disorder, no psycho tic episodes. CARDIOVASCULAR: No heart attacks, no heart [...] painful or difficult urination, no incontinence. ENDOCRINE: No diabetes, no thyroid disease, no osteopenia or osteoporosis, no breast drain age. SKIN: No breast lumps, no skin changes, no rashes, no itches. HEMATOLOGIC/LYMPHATIC: No enlarged lymph nodes, no easy or unusual bleeding, no personal h istory of cancer. RHEUMATOLOGIC: No joint arthritis, no rheumatoid arthritis. INTERIM PHYSICAL EXAMINATION: Blood pressure 127/84, pulse 67, resp. rate 16, height 1.93 m (6' 4"), weight 119.7 kg (263 lb 14.3 oz). Body mass index is 32.12 kg/m. GENERAL: Lele Mustafa is in no acute distress with unlabored respirations. HEENT: NCAT CHEST: Clear HEART: Regular ABDOMEN: Soft, ND SPINE: The patient s incisions are healing well without drainage, significant erythema, o r discharge. EXTREMITIES: No lower extremity edema. NEUROLOGICAL EXAMINATION: MENTAL STATUS: The patient is awake, alert, and oriented. He follows simple and complex commands MOTOR EXAM: Motor strength is 5/5 except for 3/5 DF on the right foot. This has worsened s jazzy his last visit. SENSORY EXAM: The sensory examination shows L5 decreased sensation on the right. RADIOGRAPHIC REVIEW: The patient s CT shows failed fusion at L5-S1 with loosened S1 hardware. ASSESSMENT: Pseudoarthrosis L5-S1 Lumbar foraminal stenosis Lumbar radiculopathy Past Medical History: Diagnosis Date Anxiety Depression Diabetes mellitus (HCC) Diabetes type 2, controlled (HCC) Graves disease Hearing deficit HTN (hypertension) Lumbar facet joint pain Lumbar radiculopathy MRSA (methicillin resistant Staphylococcus aureus) Peroneal neuropathy RLS (restless legs syndrome) Sleep apnea uses CPAP Vision disorder deficit Wears dentures upper PLAN: Overall, the patient is doing okay but his increasing weakness was concerning. He also has remained on high dose opioids that are becoming less effective for his leg and back pain. I continue to advise revision with an ALIF and posterior revision of the hardware with iliac extension. We discussed the risks, alternatives, and benefits to surgical intervention with Mr. Yung machado in clinic and again briefly today. These risks included but were not limited to , s troke, heart attack, numbness, weakness, paralysis, failure of fusion, failure of hardware, subsidence, adjacent segment degeneration, cerebrospinal fluid leak, bleeding, infection, in jury to surrounding tissues and organs, injury from positioning, injury to the nerves, diffi culty with breathing, difficulty with swallowing, difficulty with voice change, and need for additional surgery. Surgical options were discussed and the technique to be employed was described in detail to him. All his questions were answered. We discussed that the goal of the surgery is to prevent progression of his disease, but it is not considered a cure. We also discussed that although some patients may obtain 100% sym ptom relief, it is realistic to anticipate that some symptoms will continue postoperatively despite a successful surgery. We also discussed that there is no guarantee that surgery will provide improvement in his c ondition, and indeed may even worsen the symptoms. We also discussed that in the course of the procedure the operative plan may be altered to include more, less, or different levels d epending upon findings in order to provide him with the best possible outcome. I am prescribing a brace before surgery to improve his stability now to support his weak mu scles and to reduce pain by restricting mobility. For multiple (more than 1 level) fusions or failed fusion, I am also prescribing a bone jenna wth stimulator postoperatively. This is to improve the probability and rate of fusion. He would like to proceed with surgery as discussed ELECTRONICALLY SIGNED BY: Kai Gillespie MD, 12/15/2017 7:43 documented in this encou nter Miscellaneous Notes Plan of Care - Dacia-Trina Helm, FORMWORK CARPENTER - 12/19/2017 1:57 PM PDTProblem: Patient Care [place] (Adult) Goal: Care Team Goals & Evaluation PROBLEM-RELATED GOALS: 1. Fredis will call out appropriately for assistance and have no falls through 12/17/17 2. Fredis's pain will be controlled to allow for activity and rest through 12/17/17 3. Fredis will ambulate mod I by 12/23/17 4. Fredis will demonstrate proper lumbar precautions through 12/17/17 5. Fredis's incisions will heal w/o s/sx infection through 12/17/17 6. Fredis will void within six hours after arrival to floor by 12/15/17 at 2000 7. Fredis will eat 75-100% most meals and drink adequate amount fluids w/o n/v through 12/17/17 8. Lele will be modified independence with ADLs by 12/23/17. STRATEGY TO ACHIEVE GOALS: -encourage independence with activities -hourly rounding, call light within reach -monitor for s/sx pain and medicate prn -monitor for s/sx infection -monitor I/O -teach and monitor lumbar precautions --Participation in OT POC --Participation in PT POC RESTRAINT-RELATED GOALS: STRATEGIES TO ACHIEVE RESTRAINT GOALS: Outcome: Adequate for Discharge Date Met: 12/19/17 Goal Evaluation: Fredis has been released for discharge to [facility], CPAP and oxygenation goal s have been completed. SpO2 values are 98% on RA. Electronically signed by: Trina Smith RRT 12/19/2017 13:57 lan of [place] - Betty Brantley RN - 12/19/2017 11:29 AM PDTDischarge orders received and faxed to [facility] at [facility]. . This CM also called [facility] @ [phone] an dleft a voice message regarding the discharge an d asked that she review the orders and call me with a transportation time. DISPO: [facility] today, 12/19/2017. Electronically signed by: Betty Brantley RN 12/19/2017 11:31 lan of Anthony Montgomery PTA - 12/19/2017 9:42 AM PDTFormatting of this note might be different from e original. Problem: Patient Care Overview (Adult) Goal: Care Team Goals & Evaluation PROBLEM-RELATED GOALS: 1. Fredis will call out appropriately for assistance and have no falls through 12/17/17 2. Fredis's pain will be controlled to allow for activity and rest through 12/17/17 3. Fredis will ambulate mod I by 12/23/17 4. Fredis will demonstrate proper lumbar precautions through 12/17/17 5. Fredis's incisions will heal w/o s/sx infection through 12/17/17 6. Fredis will void within six hours after arrival to floor by 12/15/17 at 2000 7. Fredis will eat 75-100% most meals and drink adequate amount fluids w/o n/v through 12/17/17 8. Lele will be modified independence with ADLs by 12/23/17. STRATEGY TO ACHIEVE GOALS: -encourage independence with activities -hourly rounding, call light within reach -monitor for s/sx pain and medicate prn -monitor for s/sx infection -monitor I/O -teach and monitor lumbar precautions --Participation in OT POC --Participation in PT POC RESTRAINT-RELATED GOALS: STRATEGIES TO ACHIEVE RESTRAINT GOALS: Outcome: Improving Physical Therapy Plan of Care Treatment Note Summary: RN cleared patient for participation and patient agreeable to PT. Lele has be en participating in physical therapy for treatment of pain, weakness, impaired functional mo bility s/p L5-S1 decompression and fusion. "C" brace orders. History includes previous lumba r fusionfor stenosis and radiculopathy on 11/11/2016 w/ residual R weakness and footdrop re quiring pt to use AFO, DM, Graves Disease, HTN, perineal neuropathy, restless legs syndrome, MRSA, vision nad hearing deficits, B THAs, and B toe amputations.. Emphasis of session inc luded transfer training, gt training, ther ex for LE strengthening. Patient demonstrates pr ogress towards functional goals as evidenced by min diminished level of physical assist with transfer training, min increased tolerance with upright activities and cont to progress wel l with gt distances this session. Pt cont to present with abdominal incision pain and R foot /leg weakness throughout session. Remaining barriers to discharge and functional limitation s include decreased functional activity tolerance, decreased bed mobility, decreased functio nal transfers, decreased functional gait distance, decreased gait velocity, stairs at home, not able to navigate stairs, demonstrating need for 24/7 supervision and not yet able to mob ilize at level safe for home discharge. Lele will benefit from continued therapeutic intervention to address ongoing impairments and increase safety and independence with activities necessary for safe discharge. Refer be low for specific details regarding functional levels. Physical Therapy Discharge Recommendations are: Recommended discharge disposition: inpatient rehabilitation facility, long-term faci lity (TBD; inpt rehab vs. SNF) Post discharge physical therapy recommendation: pt is motivated participant, will benefit from structured setting, minimum 5 days of therapy/week, ongoing low intensity therapy Equipment Recommendations: 2 wheeled walker (FWW) Planned Interventions: balance training, bed mobility training, gait training, home exerci se program, lumbar stabilization, manual therapy techniques, patient/family education, postu ral re-education, stair training, strengthening, transfer training Recommended Frequency: daily Patient Status/Goals: Reflects last filed data and may be from multiple contributors. Gait extra time/effort d/t R foot drop prior to sx, vc for increased knee/hip flx Level of [place]: stand by assist, verbal cues required Assistive Device: 2 wheeled walker (FWW) Distance (feet): 115'x2 Gait Deviations: double stance time increased, limb motion velocity decreased, step length decreased, stride length decreased, vchkh-bp-qohmac ratio decreased, lno-nb-[id number] clearance decreased, weight-shifting ability decreased Safety Issues: step length decreased, weight-shifting ability decreased Impairments: pain, strength decreased, decreased flexibility, ROM decreased Transfers close Sup with t/f with FWW, d/t R foot drop Sit-Stand, Level of [place]: supervised, verbal cues required (close) Stand-Sit, Level of [place]: supervised, verbal cues required (close) [id number], Assistive Device: 2 wheeled walker (FWW) Toilet, Level of [place]: stand by assist, verbal cues required Toilet, Assistive Device: grab bars, 2 wheeled walker (FWW) Safety Issues: step length decreased, weight-shifting ability decreased Impairments: decreased flexibility, sensation decreased, strength decreased, impaired irene ce, pain Bed Mobility NT as pt upright in chair and requestin to return BtC Balance Sitting Balance: Static: good balance Sitting Balance: Dynamic: good balance Standing Balance: Static: fair balance Standing Balance: Dynamic: fair balance Therapeutic Exercise Seated exercises: bilateral, ankle pumps, hip abduction/adduction, marching, long arc quads , knee flexion Repetitions: x10 Functional Endurance good- with mild activities presented this session, secondary to abdominal sx sight pain, an d R foot drop/weakness PT Goal Review Date Most Recent Value STG Review Date 12/23/17 at 12/16/2017 1100 [id number]-Vuw-Qykect Goal Most Recent Value STG Status progressing at 12/18/2017 1525 STG [place] Level modified independent at 12/16/2017 1100 STG Assistive Device none at 12/16/2017 1100 [id number] Goal Most Recent Value STG Status progressing at 12/19/2017 0942 STG [place] Level modified independent at 12/16/2017 1100 STG Assistive Device 2 wheeled walker (FWW) at 12/16/2017 1100 Gait Goal Most Recent Value STG Status progressing at 12/19/2017 0942 STG [place] Level modified independent at 12/16/2017 1100 STG Assistive Device 2 wheeled walker (FWW) at 12/16/2017 1100 STG Distance (feet) 75 at 12/16/2017 1100 Stair Goal Most Recent Value STG Status new at 12/16/2017 1100 STG [place] Level modified independent at 12/16/2017 1100 STG Assistive Device 2 rails at 12/16/2017 1100 STG Number of Stairs 3 at 12/16/2017 1100 Additional Goal #1 PT Most Recent Value STG Status progressing at 12/19/2017 0942 STG Pt to be able to state all post op precautions and manage LSO with assist from . P randa says that even through she has Alzheimer's, he can still tell her how to do something and she will help him. at 12/16/2017 1100 Electronically signed by: Anthony Pro PTA, 12/19/2017 16:37 NF Transfer - Sonido Palomo PA-C - 12/19/2017 7:31 AM PDTFormatting of this note might be different fro m the original. RESIDENTIAL FACILITY TRANSFER ORDERS Patient Name: Lele Mustafa Patient : 1960 Gender: male Date of Admission: 12/15/2017 Date of Discharge: 12/19/2017 Admitting Provider: Kai Gillespie MD Discharging Provider: Sonido Palomo PA-C Consultants: Pt/ot PCP: Paulo Rothman [facility] transferring to: [facility] Provider after transfer: PCP or Provider at facility CODE STATUS: [x] Attempt CPR [] Do not resuscitate If patient is pulseless and not breathing, RN/HOME HEALTH CARE PROVIDER may pronounce . Advanced Directives included: [] POLST [] MOLST/MOST [] [employer] ([place]) [] Other: Code status discussed with: [x] Patient [] Spouse/Family [] DPOA [] Other: Name of person discussed with: Date discussed: Isolation/Infection Precautions: [x] None Height: Height: 193 cm (6' 4") BP Readings from Last 3 Encounters: 12/18/17 112/65 11/08/17 115/80 11/08/17 106/60 Admitting Diagnosis: Radiculopathy, lumbar region Other biomechanical lesions of lumbar region Unspecified fracture of unspecified lumbar vertebra, subsequent encounter for fracture with nonunion Foot drop, right foot Low back pain Patient Active Problem List Diagnosis HTN (hypertension) Diabetes mellitus Lumbar facet joint pain Lumbar radiculopathy MRSA (methicillin resistant Staphylococcus aureus) Obesity (BMI 30-39.9) Anxiety Depression Graves disease Diabetes type 2, controlled Obstructive sleep apnea syndrome S/P lumbar fusion Right foot drop Foraminal stenosis of lumbar region Pseudoarthrosis of lumbar spine Allergies Allergen Reactions Codeine Other (See Comments) "makes my skin crawl" Morphine Swelling Joint swelling There is no immunization history on file for this patient. Diet: Advance to regular diet as tolerated. Increased fluid/ fiber intake, avoid constipat ing foods; Add Ensure or similar nutritional shake to supplement if inadequate intake r/t de creased appetite or pain [x] As tolerated CRISIS INTERVENTION COUNSELOR may upgrade or downgrade diet as condition Indicates. [x] RN may downgrade diet as indicated. Type: [] Continue current diet of: Diet and Supplements Diet Diet consistent carb; Effective Now Number of Occurrences: Until Specified Order Questions: Type Diet consistent carb [] Other: Consistency/Precautions: [] Whole [] Thin Liquids [] Cut-up [] [place] Thick [] Advanced Chopped [] Honey Thickened [] Chopped [] Advanced Ground [] 1:1 feedings [] Ground/Pureed [] Other: Tube Feedings: [] PEG [] GT [] JT [] NGT [] Formula type: (Steel Inspector may change/substitute if indicated). [] Continuous Rate: ml/hr, infusing hrs/day [] Bolus feeds: ml every hours [] Additional water: ml every hours Respiratory: [] BiPAP at night & PRN SOB. Settings: O2 L bleed Dx: [] CPAP at night & PRN SOB. Settings: O2 L bleed Dx: [] Suction & Pulmonary toilet PRN secretion/sputum management. Dx: [x] Incentive Spirometer QID and PRN while awake. Duration: __4 WEEKS Dx: Post operative atelectasis prophylaxis [] Tracheostomy management per protocol [x] Oxygen: Lpm NC/Trach [] Continuous [] NOC [] Humidified [x] PRN SaO2 < _92_ % [] prn SOB/dyspnea Dx: [] Other: Dx: Bladder: [] Follow nursing protocol for recent baumann removal [] Baumann catheter managment per nursing protocol - Indication: [] Permanent [] Temporary [] Remove baumann catheter on and follow nursing protocol for recent baumann remova l. [] Straight catheter every hour(s) and record amount drain Dx: [] Bladder scan every hour(s) and straight cath for > ml Dx: [] Suprapubic catheter management Dx: Other Lines, Tubes and Drains: (to be managed by nursing protocol) [] IV access and location: [] Permanent [] Temporary: Instructions/indications for removal of IV access: [] May use Alteplase per protocol PRN occluded central venous catheter [] Colostomy [] Ileostomy [] Urostomy [] Nephrostomy [] Dialysis Access - Type & Location: [] Drains - Type & Location: [] Other: Activity/Therapies: []WBAT [] Weight Bearing Restricted (specify limb(s)): [x] PT Evaluation & Management for: Frequent ambulation, position changes, transfers, C gr waqas brace instructions/post op precautions Minimize pending and twisting. No lifting, pushing, or pulling objects more than 5 pounds. No sitting longer than 45 minutes at a time. No overhead work. Appointment one month after s urgery with XR; discuss modifications to precautions and advancing activities. Arms may be used to push up to stand. Logroll strongly recommended. Wear brace at all times except for wound care, lying flat or on side. For showers: Sit and remove brace, remain seated for showers. [x] OT Evaluation & Management for: Frequent ambulation, ADLs as needed [] CRISIS INTERVENTION COUNSELOR Evaluation &Management for: [x] Other: Frequent, gentle ambulation at least 1-2 minutes every 45 minutes, when not sle eping, and as much as tolerated. Continue IS, deep breathing and coughing (splinting with pillow encouraged) several times daily Wound/Skin Care: [] Follow current recommendations of the wound team for treatment. [] Follow standard nursing protocols for wound care. [] Wound Vac management per nursing protocol. Indication: Location: Settings: Change frequency: & prn [x] Other: Keep clean and dry for first 5 days post op. Check incisions daily. Schedule wound check with house physician or at neurosurgery clinic for any increased redness, swell ing, heat and/ or increased pain at incision site, increased or purulent drainage or if edge s of incisions are not well approximated. Remove outer dressings 5 days post op; at this dulce maria e, incisions (with or without steri strips) may remain uncovered, even for showers (pat gent ly dry). Any remaining steri strips should be removed at 2 weeks post op. If patient has s taples or non-absorbable sutures, they will be scheduled for an appointment to have these re moved in the neurosurgery clinic at 2 weeks post op, unless other [facility] and [facility]. Labs/Imaging: [] PT/INR: Frequency: Dx: Goal INR: Duration of therapy: [] Fingerstick glucose checks: Dx: DM [] Other: Test/Study Needed/Frequency Diagnosis/Indication Follow up appointments and consultations: YAM 4 WEEKS Date/Time: Dr. OF CHOICE STAPLE REMOVAL 2 WEEKS Date/Time I have advised this patient that he/she not use tobacco products. TB screening: Upon admission the 1st and 2nd step TST will be done as per protocol if Resid ent has no history of TB or a past positive TST. Pharmacist may substitute equivalent Rx based on facility or insurance formulary as needed unless otherwise specified by physician. Please write "CHARANJIT" (Dispense as written) if a medi cation should not be substituted. Please make sure to write a diagnosis for ALL medications continued on transfer. Antibioti cs require a stop date. If medications do not contain a SIG, make sure doses/routes and kiana edule is included. Medication Orders New Medications Details Order Next Dose Due cyclobenzaprine 10 mg tablet Take 1 tablet by mouth every 8 hours as needed for Muscle spasms. aka: FLEXERIL By: Sonido Palomo PA-C Quant: 90 tablet enoxaparin 40 mg/0.4 mL injection Inject 0.4 mLs under the skin nightly. aka: LOVENOX By: Sonido Palomo PA-C Quant: 7 Syringe oxyCODONE 5 mg tablet Take 1-4 tablets by mouth every 4 hours as needed for Pain. aka: ROXICODONE By: Sonido Palomo PA-C Quant: 120 tablet Changed Medications Details Order Next Dose Due gabapentin 300 mg capsule Take 1 capsule by mouth 3 times daily. What changed: how much to take aka: NEURONTIN By: Sonido Palomo PA-C Quant: 90 capsule Unchanged Medications Details Order Next Dose Due aspirin 81 mg EC tablet Take 81 mg by mouth Daily. cholecalciferol 2000 units Tabs Take 2,000 Units by mouth Daily. aka: VITAMIN D-[address] capsule Take 60 mg by mouth Daily. aka: CYMBALTA irbesartan-hydrochlorothiazide 150-12.5 MG per tablet Take 1 tablet by mouth Daily. aka: AVALIDE lactulose 10 g/15 mL solution Take 30 mLs by mouth 2 times daily. By: Sonido Palomo PA-C Quant: 240 mL LEVEMIR 100 units/mL injection (vial) Generic drug: insulin detemir Inject 80 Units under the skin 2 times daily. magnesium (as oxide) 250 MG tablet Take 250 mg by mouth Daily. metFORMIN 1000 MG tablet Take 1,000 mg by mouth 2 times daily (with breakfast & dinner). aka: GLUCOPHAGE NOVOLIN N 100 units/mL injection Generic drug: insulin NPH Inject under the skin 3 times daily (before meals). Sliding scale potassium 99 mg tablet Take 99 mg by mouth Daily. Discontinued Medications HYDROcodone-acetaminophen 10-325 mg per tablet aka: TAMARA Ruiz, Sonido Palomo PA-C, certify that post hospital long-term care is medically nece ssary on a continuing basis for any of the conditions for which he/she received care during this hospitalization. Check one: [x] Skilled [] Intermediate Additional Orders/Instructions: Schedule RN pain assessment every 4 hours and offer PRN pain medication(s) and/ or muscle r elaxant as necessary to manage symptoms consistently to a tolerable level without causing ov er-sedation. Transport to ED with uncontrolled pain, difficulty breathing, if unable to swallow, new los s of feeling or strength in extremities, new loss of bowel/ bladder control; with any signs/ symptoms of PE (SOB, chest pain, sweating, anxiety, tachycardia, frothy or bloody sputum) Monitor bowel function and utilize facility protocol for opioid-related and post op constip ation (laxative, stool softener, increased fluid/ fiber intake, frequent ambulation) If no B M, but passing flatus, may add suppository and/ or magnesium citrate. If no BM and absence of flatus, and/ or positive for abdominal pain, distention, nausea/ vomiting, transport to E D for evaluation. Call MD for wound check with any signs of infection or incision not healing as expected wit h edges well-approximated Urgent MD, UC or ED evaluation of any lower extremity edema, pain, tenderness, tightness, f atigue, laterality discrepancies (size, color, temperature, cap refill, sensation) to rule o ut DVT If not cleared by PT to ambulate independently, please provide assistance as needed for lucila quent ambulation. Schedule patient to take meals in dining room, encourage participation in scheduled social events and activities, have patient go to therapy room and place on shower schedule. Encourage family/ other support people to visit frequently and assist with ambul ation if appropriate. Minimize pending and twisting. No lifting, pushing, or pulling objects more than 5 pounds. No sitting longer than 45 minutes at a time. No overhead work. Appointment one month after s urgery with XR; discuss modifications to precautions and advancing activities. Arms may be used to push up to stand. Logroll strongly recommended. Wear brace at all times except for wound care, lying flat or on side. For showers: Sit and remove brace, remain seated for showers. Call Neurosurgery clinic with any questions or concerns. ; fa x. Clinic hours are Tuesday- 08:00-16:30; Tuesday 08:00-13:00 Patients are generally scheduled for follow up appointments at 4 weeks and 12 weeks post op . Most require X rays at least 90 minutes prior to the appointment time (or a day or two pr ior) at the hospital and clinic check in is 30 minutes prior to appointment time. Physician's signature: Shirley Palomo [facility] 12/19/2017 7:31 [facility] USE ONLY: [] Admitting orders verbally reviewed with Admitting Physician, modified where appropriate, and approved. Verbal Order from Date: Time: _ RN name: RN signature: [] Admitting orders reviewed, modified where appropriate, and approved. Physician's signature: Date: Time: lan of Care - Makeda Foster RN - 12/19/2017 4:51 AM PDTProblem: Patient Care Overview (Adult) Goal: Care Team Goals & Evaluation PROBLEM-RELATED GOALS: 1. Fredis will call out appropriately for assistance and have no falls through 12/17/17 2. Fredis's pain will be controlled to allow for activity and rest through 12/17/17 3. Fredis will ambulate mod I by 12/23/17 4. Fredis will demonstrate proper lumbar precautions through 12/17/17 5. Fredis's incisions will heal w/o s/sx infection through 12/17/17 6. Fredis will void within six hours after arrival to floor by 12/15/17 at 2000 7. Fredis will eat 75-100% most meals and drink adequate amount fluids w/o n/v through 12/17/17 8. Lele will be modified independence with ADLs by 12/23/17. STRATEGY TO ACHIEVE GOALS: -encourage independence with activities -hourly rounding, call light within reach -monitor for s/sx pain and medicate prn -monitor for s/sx infection -monitor I/O -teach and monitor lumbar precautions --Participation in OT POC --Participation in PT POC RESTRAINT-RELATED GOALS: STRATEGIES TO ACHIEVE RESTRAINT GOALS: Outcome: Improving Goal Evaluation: heart regular, lungs clear on R/A. CPAP at night. RLE dorsi weak, plantar strong. M/S 5/5. Nurse Private Duty strong. Denies N/T. Complains of pain. Oxycodone and flexeril given. Dressing to raheem k CDI. Dressing to abdomen dried drainage. Voiding without difficulty. Bowel tones active. L ast BM 12/18/17. C-brace. Appeared to sleep well between cares. lan of Care - Kolton Harrell RN - 12/18/2017 5:46 PM PDTProblem: Patient Care Overview (Adult) Goal: Care Team Goals & Evaluation PROBLEM-RELATED GOALS: 1. Fredis will call out appropriately for assistance and have no falls through 12/17/17 2. Fredis's pain will be controlled to allow for activity and rest through 12/17/17 3. Fredis will ambulate mod I by 12/23/17 4. Fredis will demonstrate proper lumbar precautions through 12/17/17 5. Fredis's incisions will heal w/o s/sx infection through 12/17/17 6. Fredis will void within six hours after arrival to floor by 12/15/17 at 2000 7. Fredis will eat 75-100% most meals and drink adequate amount fluids w/o n/v through 12/17/17 8. Lele will be modified independence with ADLs by 12/23/17. STRATEGY TO ACHIEVE GOALS: -encourage independence with activities -hourly rounding, call light within reach -monitor for s/sx pain and medicate prn -monitor for s/sx infection -monitor I/O -teach and monitor lumbar precautions --Participation in OT POC --Participation in PT POC RESTRAINT-RELATED GOALS: STRATEGIES TO ACHIEVE RESTRAINT GOALS: Outcome: Improving Goal Evaluation: Fredis reports pain 7/10 at abdominal incision. Treated with 15 mg of oxycodone Q4 hours with noted relief. CMS is intact. RLE foot drop occurred previous to this surgery. Weak dorsifle xion in RLE, strong in LLE. Bandaids to back clean dry and intact. Abdominal dressing marked also clean dry and intact. Voiding with no complications. Bowel tones active x4 2 bowel mov ements today. Tolerating diet without N/V. Educated patient on C brace precautions. Moves wi th supervision in the room, hourly rounding, and calls appropriately for cares. lan of Care - Pushpa Barragan PTA - 12/18/2017 4:12 PM PDT Problem: Patient Care Overview (Adult) Goal: Care Team Goals & Evaluation PROBLEM-RELATED GOALS: 1. Fredis will call out appropriately for assistance and have no falls through 12/17/17 2. [place] pain will be controlled to allow for activity and rest through 12/17/17 3. Fredis will ambulate mod I by 12/23/17 4. Fredis will demonstrate proper lumbar precautions through 12/17/17 5. Fredis's incisions will heal w/o s/sx infection through 12/17/17 6. Fredis will void within six hours after arrival to floor by 12/15/17 at 2000 7. Fredis will eat 75-100% most meals and drink adequate amount fluids w/o n/v through 12/17/17 8. Lele will be modified independence with ADLs by 12/23/17. STRATEGY TO ACHIEVE GOALS: -encourage independence with activities -hourly rounding, call light within reach -monitor for s/sx pain and medicate prn -monitor for s/sx infection -monitor I/O -teach and monitor lumbar precautions --Participation in OT POC --Participation in PT POC RESTRAINT-RELATED GOALS: STRATEGIES TO ACHIEVE RESTRAINT GOALS: Outcome: Improving Physical Therapy Plan of Care Treatment Note Summary: Lele has been participating in physical therapy for treatment of pain, weakne ss, impaired functional mobility s/p L5-S1 decompression and fusion. "C" brace orders. Histo ry includes previous lumbar fusionfor stenosis and radiculopathy on 11/11/2016 w/ residual R weakness and footdrop requiring pt to use AFO, DM, Graves Disease, HTN, perineal neuropath y, restless legs syndrome, MRSA, vision nad hearing deficits, B THAs, and B toe amputations. . Emphasis of session included functional mobility and activity tolerance;,especially gait training and stair training. Patient demonstrates supervision to Mod I in all activities to day-walking 230' with FWW, up and down 4 steps, transfers with FWW. Patient demonstrates pr ogress towards functional goals as evidenced by patient's improvement with gait, transfers, and stair training. Remaining barriers to discharge and functional limitations include decr eased insight into safety and deficits, decreased functional activity tolerance, decreased b ed mobility, decreased functional transfers, decreased functional gait distance, decreased g ait velocity, stairs at home, not able to navigate stairs, unsafe discharge disposition and spinal precautions. Patient reports that he is transferring to [facility] tomorrow. Lele will benefit from continued therapeutic intervention to address ongoing impairments and increase safety and independence with activities necessary for safe discharge. Refer be low for specific details regarding functional levels. Physical Therapy Discharge Recommendations are: Recommended discharge disposition: inpatient rehabilitation facility, long-term faci lity (TBD; inpt rehab vs. SNF) Post discharge physical therapy recommendation: pt is motivated participant, will benefit from structured setting, minimum 5 days of therapy/week, ongoing low intensity therapy Equipment Recommendations: 2 wheeled walker (FWW) Planned Interventions: balance training, bed mobility training, gait training, home exerci se program, lumbar stabilization, manual therapy techniques, patient/family education, postu ral re-education, stair training, strengthening, transfer training Recommended Frequency: daily Patient Status/Goals: Reflects last filed data and may be from multiple contributors. Gait much improved, cont. right foot drop from previous surgery Level of [place]: stand by assist, verbal cues required Assistive Device: 2 wheeled walker (FWW) Distance (feet): 230' Gait Deviations: double stance time increased, limb motion velocity decreased, step length decreased, stride length decreased, jwjpq-li-abvyzr ratio decreased, [id number] clearance decreased, weight-shifting ability decreased Safety Issues: step length decreased, weight-shifting ability decreased Impairments: pain, strength decreased, decreased flexibility, ROM decreased Stairs Number of Stairs: up and down 4 steps Handrail Location: both sides Level of [place]: supervised Technique Used: step to step (ascending), step to step (descending) Transfers demonstrates supervision with transfers, FWW Sit-Stand, Level of [place]: supervised, verbal cues required Stand-Sit, Level of [place]: supervised, verbal cues required Ejt-[id number]-Zcm, Assistive Device: 2 wheeled walker (FWW) Toilet, Level of [place]: stand by assist, verbal cues required Toilet, Assistive Device: grab bars, 2 wheeled walker (FWW) Safety Issues: step length decreased, weight-shifting ability decreased Impairments: decreased flexibility, sensation decreased, strength decreased, impaired irene ce, pain Bed Mobility NT-up in chair Balance fair+ with FWW Sitting Balance: Static: good balance Sitting Balance: Dynamic: good balance Standing Balance: Static: fair balance Standing Balance: Dynamic: fair balance Therapeutic Exercise review seated ther ex Seated exercises: bilateral, ankle pumps, hip abduction/adduction, marching, long arc quads , knee flexion Repetitions: x 10 Functional Endurance good- with mild activities completed this session, secondary to R foot drop and R leg weakn ess ROM ROM grossly WLF; not tested beyond post op precautions. Strength L LE Strength: hip grossly 3-4/5; otherwise grossly > 4/5 during supine MMT R LE Strength: hip grossly 3-4/5, dorsiflexion 0/5; otherwise grossly > 4/5 during supine M MT Trunk strength: grossly 1-2/5, as observed during bed mobility PT Goal Review Date Most Recent Value STG Review Date 12/23/17 at 12/16/2017 1100 Gtqgal-Tlv-Oqpykb Goal Most Recent Value STG Status progressing at 12/18/2017 1525 STG [place] Level modified independent at 12/16/2017 1100 STG Assistive Device none at 12/16/2017 1100 Bur-Ujmqe-Occ Goal Most Recent Value STG Status progressing at 12/18/2017 1525 STG [place] Level modified independent at 12/16/2017 1100 STG Assistive Device 2 wheeled walker (FWW) at 12/16/2017 1100 Gait Goal Most Recent Value STG Status progressing at 12/18/2017 1525 STG [place] Level modified independent at 12/16/2017 1100 STG Assistive Device 2 wheeled walker (FWW) at 12/16/2017 1100 STG Distance (feet) 75 at 12/16/2017 1100 Stair Goal Most Recent Value STG Status new at 12/16/2017 1100 STG [place] Level modified independent at 12/16/2017 1100 STG Assistive Device 2 rails at 12/16/2017 1100 STG Number of Stairs 3 at 12/16/2017 1100 Additional Goal #1 PT Most Recent Value STG Status progressing at 12/17/2017 1342 STG Pt to be able to state all post op precautions and manage LSO with assist from . David tolentino says that even through she has Alzheimer's, he can still tell her how to do something and she will help him. at 12/16/2017 1100 Electronically signed by: Pushpa Barragan PTA, 12/18/2017 16:09 lan of Scott hendrickson, Samanta Boothe RRT - 12/18/2017 5:13 AM PDTProblem: Patient Care Overview (Adult) Goal: Care Team Goals & Evaluation PROBLEM-RELATED GOALS: 1. Fredis will call out appropriately for assistance and have no falls through 12/17/17 2. Fredis's pain will be controlled to allow for activity and rest through 12/17/17 3. Fredis will ambulate mod I by 12/23/17 4. Fredis will demonstrate proper lumbar precautions through 12/17/17 5. Fredis's incisions will heal w/o s/sx infection through 12/17/17 6. Fredis will void within six hours after arrival to floor by 12/15/17 at 2000 7. Fredis will eat 75-100% most meals and drink adequate amount fluids w/o n/v through 12/17/17 8. Lele will be modified independence with ADLs by 12/23/17. STRATEGY TO ACHIEVE GOALS: -encourage independence with activities -hourly rounding, call light within reach -monitor for s/sx pain and medicate prn -monitor for s/sx infection -monitor I/O -teach and monitor lumbar precautions --Participation in OT POC --Participation in PT POC RESTRAINT-RELATED GOALS: STRATEGIES TO ACHIEVE RESTRAINT GOALS: Goal Evaluation: Pt did not wear his cpap that RT set up for him last night. I checked on him 3 times and at tempted to put the mask on for him, and he would say he had been wearing it but took it off a few minutes ago because he couldn't sleep. He said he enjoyed wearing however; I did not s ee him wear it. lan of Makeda Monge K, RN - 12/18/2017 4:19 AM PDTProblem: Patient Care Overview (Adult) Goal: Care Team Goals & Evaluation PROBLEM-RELATED GOALS: 1. Fredis will call out appropriately for assistance and have no falls through 12/17/17 2. Fredis's pain will be controlled to allow for activity and rest through 12/17/17 3. Fredis will ambulate mod I by 12/23/17 4. Fredis will demonstrate proper lumbar precautions through 12/17/17 5. Fredis's incisions will heal w/o s/sx infection through 12/17/17 6. Fredis will void within six hours after arrival to floor by 12/15/17 at 2000 7. Fredis will eat 75-100% most meals and drink adequate amount fluids w/o n/v through 12/17/17 8. Lele will be modified independence with ADLs by 12/23/17. STRATEGY TO ACHIEVE GOALS: -encourage independence with activities -hourly rounding, call light within reach -monitor for s/sx pain and medicate prn -monitor for s/sx infection -monitor I/O -teach and monitor lumbar precautions --Participation in OT POC --Participation in PT POC RESTRAINT-RELATED GOALS: STRATEGIES TO ACHIEVE RESTRAINT GOALS: Outcome: Improving Goal Evaluation: Tachycardic tonight. Lungs clear on R/A. CPAP at night. Calling appropriately. M/S /. Den ies N/T. Nurse Private Duty strong. RLE foot drop. Complains of pain. Oxycodone given. Dressing to back r einforced. Dressing to abdomen has dried drainage. CGA, FWW to bathroom. Bowel tones active . Last BM 12/16/17. Voiding without difficulty. C-brace. Appeared to sleep well between care s. lan of Care - Shar Xiao V, JOSH - 12/17/2017 11:45 PM PDTProblem: Patient Care Overview (Adult) Goal: Care Team Goals & Evaluation PROBLEM-RELATED GOALS: 1. Fredis will call out appropriately for assistance and have no falls through 12/17/17 2. Fredis's pain will be controlled to allow for activity and rest through 12/17/17 3. Fredis will ambulate mod I by 12/23/17 4. Fredis will demonstrate proper lumbar precautions through 12/17/17 5. Fredis's incisions will heal w/o s/sx infection through 12/17/17 6. Fredis will void within six hours after arrival to floor by 12/15/17 at 2000 7. Fredis will eat 75-100% most meals and drink adequate amount fluids w/o n/v through 12/17/17 8. Lele will be modified independence with ADLs by 12/23/17. STRATEGY TO ACHIEVE GOALS: -encourage independence with activities -hourly rounding, call light within reach -monitor for s/sx pain and medicate prn -monitor for s/sx infection -monitor I/O -teach and monitor lumbar precautions --Participation in OT POC --Participation in PT POC RESTRAINT-RELATED GOALS: STRATEGIES TO ACHIEVE RESTRAINT GOALS: Outcome: Unchanged Goal Evaluation: Lele was found in hospital bed semi fowlers POC with no respiratory distress noted. oxyg en saturation is SpO2: 93 % on room air and a heart rate of 98. Breath sounds are clear . RT will continue to monitor for ant acute changes. lan of Care - Nadja Iniguez RN - 12/17/2017 6:25 PM PDTProblem: Patient Care Overview (Adult) Goal: Care Team Goals & Evaluation PROBLEM-RELATED GOALS: 1. Fredis will call out appropriately for assistance and have no falls through 12/17/17 2. Fredis's pain will be controlled to allow for activity and rest through 12/17/17 3. Fredis will ambulate mod I by 12/23/17 4. Fredis will demonstrate proper lumbar precautions through 12/17/17 5. Fredis's incisions will heal w/o s/sx infection through 12/17/17 6. Fredis will void within six hours after arrival to floor by 12/15/17 at 1999 7. Fredis will eat 75-100% most meals and drink adequate amount fluids w/o n/v through 12/17/17 8. Lele will be modified independence with ADLs by 12/23/17. STRATEGY TO ACHIEVE GOALS: -encourage independence with activities -hourly rounding, call light within reach -monitor for s/sx pain and medicate prn -monitor for s/sx infection -monitor I/O -teach and monitor lumbar precautions --Participation in OT POC --Participation in PT POC RESTRAINT-RELATED GOALS: STRATEGIES TO ACHIEVE RESTRAINT GOALS: Outcome: Improving Goal Evaluation: HRR tachy, LSC, BT+ last BM 12/16. Denies numbness or tingling. 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 Right plantar flexion strong, right dorsiflexion weak. Bilat legs warm, cap refill < 3 seconds, pedal pulses +2. Krish hose on. Bed alarm in use. FITNESS COORDINATOR assisted pt to shower today. Abdominal dressing has moderate amount of older bushra k red drainage. C-brace on at all times except when lying flat. Pain managed well with Oxy codone 15mg, Tylenol, Flexeril. Pt eagerly ambulating in the halls with FWW and SBA with CN A. lan of Care - Anthony Burleson PTA - 12/17/2017 1:42 PM PDT Problem: Patient Care Overview (Adult) Goal: Care Team Goals & Evaluation PROBLEM-RELATED GOALS: 1. Fredis will call out appropriately for assistance and have no falls through 12/17/17 2. Fredis's pain will be controlled to allow for activity and rest through 12/17/17 3. Fredis will ambulate mod I by 12/23/17 4. Fredis will demonstrate proper lumbar precautions through 12/17/17 5. Fredis's incisions will heal w/o s/sx infection through 12/17/17 6. Fredis will void within six hours after arrival to floor by 12/15/17 at 2000 7. Fredis will eat 75-100% most meals and drink adequate amount fluids w/o n/v through 12/17/17 8. Lele will be modified independence with ADLs by 12/23/17. STRATEGY TO ACHIEVE GOALS: -encourage independence with activities -hourly rounding, call light within reach -monitor for s/sx pain and medicate prn -monitor for s/sx infection -monitor I/O -teach and monitor lumbar precautions --Participation in OT POC --Participation in PT POC RESTRAINT-RELATED GOALS: STRATEGIES TO ACHIEVE RESTRAINT GOALS: Outcome: Improving Physical Therapy Plan of Care Treatment Note Summary: RN cleared patient for participation and patient agreeable to PT. Lele has be en participating in physical therapy for treatment of pain, weakness, impaired functional mo bility s/p L5-S1 decompression and fusion. "C" brace orders. History includes previous lumba r fusionfor stenosis and radiculopathy on 11/11/2016 w/ residual R weakness and footdrop re quiring pt to use AFO, DM, Graves Disease, HTN, perineal neuropathy, restless legs syndrome, MRSA, vision nad hearing deficits, B THAs, and B toe amputations.. Emphasis of session inc luded transfer training, gt training, ther ex for LE strengthening and HEP. Patient demonst rates progress towards functional goals as evidenced by min increased with ambulation tolera nce and upright activity tolerance, improving sequencing and safety with transfer training. Pt cont to required CGA with upright functional activities d/t RLE weakness, R foot drop and min LBP, pt cont to require vc for 3/6 'C" brace precautions throughout session. Remaining barriers to discharge and functional limitations include decreased functional activity tole melvina, decreased bed mobility, decreased functional transfers, decreased functional gait dis tance, decreased gait velocity, stairs at home, not able to navigate stairs, demonstrating n eed for 24/ supervision and not yet able to mobilize at level safe for home discharge. Lele will benefit from continued therapeutic intervention to address ongoing impairments and increase safety and independence with activities necessary for safe discharge. Refer be low for specific details regarding functional levels. Physical Therapy Discharge Recommendations are: Recommended discharge disposition: inpatient rehabilitation facility, long-term faci lity (TBD; inpt rehab vs. SNF) Post discharge physical therapy recommendation: pt is motivated participant, will benefit from structured setting, minimum 5 days of therapy/week, ongoing low intensity therapy Equipment Recommendations: 2 wheeled walker (FWW) Planned Interventions: balance training, bed mobility training, gait training, home exerci se program, lumbar stabilization, manual therapy techniques, patient/family education, postu ral re-education, stair training, strengthening, transfer training Recommended Frequency: daily Patient Status/Goals: Reflects last filed data and may be from multiple contributors. Gait extra time/effort d/t antalgic gt pattern, reduced wt shift to RLE, reduced pacing and cada nce, general safety d/t reduced R foot clearance, RLE weakness, min instabilty with turn tova igation, no LoB this session, vc for pacing, pursed lip breathing, urpight posture, min incr eased hip/knee flx for foot clearance Level of [place]: contact guard assist, verbal cues required (close) Assistive Device: 2 wheeled walker (FWW) Distance (feet): 65'x2 Gait Deviations: double stance time increased, limb motion velocity decreased, step length decreased, stride length decreased, scbia-yu-cgeryd ratio decreased, qlv-wn-knjix clearance decreased, weight-shifting ability decreased Safety Issues: step length decreased, weight-shifting ability decreased Impairments: pain, strength decreased, decreased flexibility, ROM decreased Transfers extra time/effort d/t general deconditionig, min RLE weakness, general safety d/t LE positi oning, R foot drop, precaution adherence, vc for urpight posture, LE positioning, pt dispaly fair return demo for scooting to edger of chair and pushing from chair Sit-Stand, Level of [place]: verbal cues required, stand by assist Stand-Sit, Level of [place]: stand by assist, verbal cues required [id number]-Ibt, Assistive Device: 2 wheeled walker (FWW) Safety Issues: step length decreased, weight-shifting ability decreased Impairments: decreased flexibility, sensation decreased, strength decreased, impaired irene ce, postural control impaired, pain Bed Mobility NT d/t pt upright in chair and requesting to return BtC, pt reports he is able to complete bed mobility with HoB elevated and rails utilized today Balance Sitting Balance: Static: good balance Sitting Balance: Dynamic: fair balance Standing Balance: Static: fair balance (-, with AD support) Standing Balance: Dynamic: fair balance (-, with AD support) Therapeutic Exercise vc for controlled mvmt and staying within comfortable ROM Seated exercises: bilateral, ankle pumps, hip abduction/adduction, marching, long arc quads Repetitions: x10 Functional Endurance good- with mild activities completed this session, secondary to R foot drop and R leg weakn ess PT Goal Review Date Most Recent Value STG Review Date 12/23/17 at 12/16/2017 1100 [id number] Goal Most Recent Value STG Status new at 12/16/2017 1100 STG [place] Level modified independent at 12/16/2017 1100 STG Assistive Device none at 12/16/2017 1100 [id number]-[id number] Goal Most Recent Value STG Status progressing at 12/17/2017 1342 STG [place] Level modified independent at 12/16/2017 1100 STG Assistive Device 2 wheeled walker (FWW) at 12/16/2017 1100 Gait Goal Most Recent Value STG Status progressing at 12/17/2017 1342 STG [place] Level modified independent at 12/16/2017 1100 STG Assistive Device 2 wheeled walker (FWW) at 12/16/2017 1100 STG Distance (feet) 75 at 12/16/2017 1100 Stair Goal Most Recent Value STG Status new at 12/16/2017 1100 STG [place] Level modified independent at 12/16/2017 1100 STG Assistive Device 2 rails at 12/16/2017 1100 STG Number of Stairs 3 at 12/16/2017 1100 Additional Goal #1 PT Most Recent Value STG Status progressing at 12/17/2017 1342 STG Pt to be able to state all post op precautions and manage LSO with assist from . P t says that even through she has Alzheimer's, he can still tell her how to do something and she will help him. at 12/16/2017 1100 Electronically signed by: Anthony Pro PTA, 12/17/2017 17:13 lan of Care - Radha Landeros RN - 12/17/2017 1:58 AM PDTProblem: Patient Care Overview (Adult) Goal: Care Team Goals & Evaluation PROBLEM-RELATED GOALS: 1. Fredis will call out appropriately for assistance and have no falls through 12/17/17 2. Fredis's pain will be controlled to allow for activity and rest through 12/17/17 3. Fredis will ambulate mod I by 12/23/17 4. Fredis will demonstrate proper lumbar precautions through 12/17/17 5. Fredis's incisions will heal w/o s/sx infection through 12/17/17 6. Fredis will void within six hours after arrival to floor by 12/15/17 at 2000 7. Fredis will eat 75-100% most meals and drink adequate amount fluids w/o n/v through 12/17/17 8. Lele will be modified independence with ADLs by 12/23/17. 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 Fredis c/o 7-12/02 pain; medicated w/15mg Oxycodone PRN. lan of Care - Kai Vela, FORMWORK CARPENTER - 12/16/2017 4:41 PM PDTProblem: Patient Care Overview (Adult) Goal: Care Team Goals & Evaluation PROBLEM-RELATED GOALS: 1. Fredis will call out appropriately for assistance and have no falls through 12/17/17 2. Fredis's pain will be controlled to allow for activity and rest through 12/17/17 3. Fredis will ambulate mod I by 12/17/17 4. Fredis will demonstrate proper lumbar precautions through 12/17/17 5. Fredis's incisions will heal w/o s/sx infection through 12/17/17 6. Ferdis will void within six hours after arrival to floor by 12/15/17 at 2000 7. Fredis will eat 75-100% most meals and drink adequate amount fluids w/o n/v through 12/17/17 8. Lele will be modified independence with ADLs by 12/23/17. STRATEGY TO ACHIEVE GOALS: -encourage independence with activities -hourly rounding, call light within reach -monitor for s/sx pain and medicate prn -monitor for s/sx infection -monitor I/O -teach and monitor lumbar precautions --Participation in OT POC RESTRAINT-RELATED GOALS: STRATEGIES TO ACHIEVE RESTRAINT GOALS: Goal Evaluation: When patient falling asleep/dozing, oxygen saturation down to 87%. Patient needs 2 l/m oxygen at rest but can be up without oxygen with activity. Patient usi ng inspirometer on own achieving 76% of predicted normal with good efforts. Will continue t o follow lan of Care - Nadja Troy RN - 12/16/2017 3:09 PM PDTProblem: Patient Care Overview (Adult) Goal: Care Team Goals & Evaluation PROBLEM-RELATED GOALS: 1. Fredis will call out appropriately for assistance and have no falls through 12/17/17 2. Fredis's pain will be controlled to allow for activity and rest through 12/17/17 3. Fredis will ambulate mod I by 12/17/17 4. Fredis will demonstrate proper lumbar precautions through 12/17/17 5. Fredis's incisions will heal w/o s/sx infection through 12/17/17 6. Fredis will void within six hours after arrival to floor by 12/15/17 at 2000 7. Fredis will eat 75-100% most meals and drink adequate amount fluids w/o n/v through 12/17/17 8. Lele will be modified independence with ADLs by 12/23/17. STRATEGY TO ACHIEVE GOALS: -encourage independence with activities -hourly rounding, call light within reach -monitor for s/sx pain and medicate prn -monitor for s/sx infection -monitor I/O -teach and monitor lumbar precautions --Participation in OT POC RESTRAINT-RELATED GOALS: STRATEGIES TO ACHIEVE RESTRAINT GOALS: Outcome: Improving Goal Evaluation: HRR tachy, LSC, BT+, passing flatus, last BM runny on 12/16, Miralax and Lactulose held thi s morning. Lower abdominal dressing has moderate amount of dark red drainage on it. Band-a ids on back CDI. SCD's, Krish hose and bed alarm in use. Voids adequate amount of clear yell ow urine, IV SL. Denies numbness and tingling. 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 Pain manag ed with Tylenol, Oxycodone and flexeril. Pt worked with PT and OT. Family visited, support vonda. lan of Care - Olga gomez, DON Abel - 12/16/2017 2:20 PM PDTProblem: Discharge Planning Goal: Patient will be discharged in a safe manner Outcome: Improving This child welfare caseworker met with patient regarding discharge plans. Patient states that he lives in [place] with his Bina. He reports that this is his fifth back surgery. He has al l DME at home (FWW,4WW, bathroom DME). He has three steps into his mobile home with hand castillo ls and then lives on a single level. We dicussed his needs at discharge. Patient states that he went to [facility] in [place] aft er his last surgery and would like to go back there again. This CM faxed a referral and let him know that we would try to secure a bed for him today. Patient reports that he does not have a PCP at this time but will be establishing with a la carlos named Olamide Scott NP when he gets out of the SNF. He will need the house doc at [facility] y to follow This CM will f/u with Byron at [facility] to see if they have a bed available. PLAN: To [facility] pending [facility]'s acceptance. Plan B: If [facility] cannot accept, home with [facility] however, he will need to establish with a PCP prior to [facility] following and this was explained to patient. Electronically signed by: DON Mike 12/16/2017 14:20 Call back from Byron at [facility]. They can accept Fredis to their facility but not unt tuesday. Sticky note left for doc. PLAN: To [facility] Tuesday. lan of Madai Garcia, OT - 12/16/2017 11:30 AM PDT Problem: Patient Care Overview (Adult) Goal: Care Team Goals & Evaluation PROBLEM-RELATED GOALS: 1. Fredis will call out appropriately for assistance and have no falls through 12/17/17 2. Fredis's pain will be controlled to allow for activity and rest through 12/17/17 3. Fredis will ambulate mod I by 12/17/17 4. Fredis will demonstrate proper lumbar precautions through 12/17/17 5. Fredis's incisions will heal w/o s/sx infection through 12/17/17 6. Fredis will void within six hours after arrival to floor by 12/15/17 at 2000 7. Fredis will eat 75-100% most meals and drink adequate amount fluids w/o n/v through 12/17/17 8. Lele will be modified independence with ADLs by 12/23/17. STRATEGY TO ACHIEVE GOALS: -encourage independence with activities -hourly rounding, call light within reach -monitor for s/sx pain and medicate prn -monitor for s/sx infection -monitor I/O -teach and monitor lumbar precautions --Participation in OT POC RESTRAINT-RELATED GOALS: STRATEGIES TO ACHIEVE RESTRAINT GOALS: Outcome: Improving Occupational Therapy Plan of Care Initial Evaluation, Treatment, Discharge Note Summary: Lele has been participating in occupational therapy for treatment of Decreased ADL perf ormance s/p L5-S1 ALIF. Emphasis of session included LB dressing, fxl mobility and t/fs, an d grooming at sink. Patient demonstrates progress towards functional goals as evidenced by good recall of spinal precautions, safety awareness, and ADL perforance. Lele has shown a dequate progress towards goals and is to discharge OT at this time. Staff to continue to en courage and promote independence with ADLs and functional mobility. Lele will benefit from therapeutic intervention to address impairments and increase safet y and independence with activities necessary for safe discharge. Refer below for specific d etails regarding functional levels. Precautions/Limitations: vision impairment, hard of hearing, spinal, orthotic/bracing Precaution Comment: "C" lumbar brace, R AFO Left Upper Extremity Weight-Bearing: partial weight-bearing (no pushing, pulling, lifting > 5 lbs, no overhead work) Right Upper Extremity Weight-Bearing: partial weight-bearing (no pushing, pulling, lifting > 5 lbs, no overhead work) Previous Level of Function: Transferring: independent Ambulation: independent Toileting: independent Bathing: independent Dressing: independent Eating: independent Communication: understands/communicates without difficulty Swallowin-->swallows foods/liquids without difficulty Equipment Currently Used at Home: cane, straight, single point, other (see comments), 2 whe eled walker (FWW), 4 wheeled walker (4WW), long handled sponge, code clerk (R AFO) Prior Functional Level Comment: Pt says on good days he uses his cane and on bad days he us es his FWW at home; keeps 4WW in his truck and uses this for community mobility. Potential available assistance at discharge: Provides Primary Care For: spouse Role Relationships Comment: has Alzheimers; 's twin sister is caring for pt's while he is recovering. Pt's stepdaughter to assist pt upon d/c. Living Environment/Accessibility: Lives With: spouse Living Arrangements: mobile home Home Accessibility: stairs (2 railings present) Number of Stairs to Enter Home: 3 Number of Stairs Within Home: 0 Transportation Available: (orthodox people to assist with transportation, [id number] to a ssist if needed) Living Environment Comment: Pt has tub/shower combo w/ shower chair, hand held shower, and grab bars. Has ETS, 3 different walkers, and some canes at home. Uses 4WW for community mobi lity. Patient/Family s Goals: "To get well and go home" Rehabilitation potential: good, to achieve stated therapy goals Occupational Therapy Discharge Recommendations are: Recommended discharge disposition: home with assist Post discharge occupational therapy recommendation: home health Equipment Recommendations: Planned Interventions:ADL retraining, transfer training Recommended Frequency: evaluation only, other (see comments) (d/c from OT) Patient Status/Goals: Reflects last filed data and may be from multiple contributors. ADLs Pt completed ADL's with Mod I. Pt has good safety awareness and adherance to spinal precaut ions Pt donned/doffed socks and pants with AE as PLOF indicates use of AE such as code clerk and lo ng handled shoe horn. Pt reports that he does not use sock aid at home, although has one. Pt utilized sock aid during tx session due to fatigue and completed LB dressing with Mod I and safely adhered to spinal precautions. LB Dressing, Level of [place]: modified independent Assistive Device: long-handled shoe horn, code clerk, sock-aid LB Dressing Assess/Train, Position: sitting, standing LB Dressing Assess/Train, Impairments: decreased flexibility, motor control impaired, pain, other (see comments), strength decreased (spinal precautions) Pt completed grooming in standing at sink Mod I with no setup or physical assist Grooming, Level of [place]: modified independent Grooming Assess/Train, Position: standing Grooming Assess/Train, Impairments: decreased flexibility, motor control impaired, strength decreased Functional Endurance Good, pt cooperative and tolerated tx well. RT arrived to take vitals, pt at 92% SpO2 seate d at EOB. Pt instructed to complete pursed lip breathing throughout activity and rest. Cognitive Mood/Behavior: calm, cooperative Orientation: oriented x 4 Arousal Level: opens eyes spontaneously Transfers Pt seen with PT completing toileting. Per PT and pt, pt t/f to BSC over toilet with use of grab bars and adheres to precautions. ROM L UE ROM: WFL R UE ROM: WFL Strength L UE Strength: WFL, not tested beyond post op precautions R UE Strength: WFL, not tested beyond post op precautions OT Goal Review Date Most Recent Value STG Review Date 12/23/17 at 12/16/2017 1100 LB Dressing Goal Most Recent Value STG Status new, met at 12/16/2017 1100 STG [place] Level modified independent at 12/16/2017 1100 STG Adaptive Equipment code clerk, shoe horn, long handled, sock-aid at 12/16/2017 1100 Electronically signed by: Madai Beth OT, 12/16/2017 11:59 lan of Care - Mini Nina, PT - 12/16/2017 11:00 AM PDTFormatting of this note might be different from piper archuleta original. Problem: Patient Care Overview (Adult) Goal: Care Team Goals & Evaluation PROBLEM-RELATED GOALS: 1. Fredis will call out appropriately for assistance and have no falls through 12/17/17 2. Fredis's pain will be controlled to allow for activity and rest through 12/17/17 3. Fredis will ambulate mod I by 12/23/17 4. Fredis will demonstrate proper lumbar precautions through 12/17/17 5. Fredis's incisions will heal w/o s/sx infection through 12/17/17 6. Fredis will void within six hours after arrival to floor by 12/15/17 at 2000 7. Fredis will eat 75-100% most meals and drink adequate amount fluids w/o n/v through 12/17/17 8. Lele will be modified independence with ADLs by 12/23/17. STRATEGY TO ACHIEVE GOALS: -encourage independence with activities -hourly rounding, call light within reach -monitor for s/sx pain and medicate prn -monitor for s/sx infection -monitor I/O -teach and monitor lumbar precautions --Participation in OT POC --Participation in PT POC RESTRAINT-RELATED GOALS: STRATEGIES TO ACHIEVE RESTRAINT GOALS: Physical Therapy Plan of Care Initial Evaluation, Treatment Note Summary: Lele presents to physical therapy with pain, weakness, impaired functional mo bility s/p L5-S1 decompression and fusion. "C" brace orders. History includes previous lumba r fusionfor stenosis and radiculopathy on 11/11/2016 w/ residual R weakness and footdrop re quiring pt to use AFO, DM, Graves Disease, HTN, perineal neuropathy, restless legs syndrome, MRSA, vision nad hearing deficits, B THAs, and B toe amputations. Pt presents in bed; agree able to PT. Says abdomen hurts worse than low back. Says that his has Alzheimer's so he thinks that he will need to go to short term rehab prior to returnign home, because he usua lly helps care for her. Twin sister is helping right now. RN in to give meds and asking this PT to help him don KRISH hose prior to getting up. Objective exam reveals impairments wi th aerobic capacity/endurance, pain. Barriers to discharge and functional limitations inclu de decreased functional activity tolerance, decreased bed mobility, decreased functional tra nsfers, decreased functional gait distance, decreased gait velocity, stairs at home, not abl e to navigate stairs, demonstrating need for 24/7 supervision and not yet able to mobilize a t level safe for home discharge. Lele will benefit from therapeutic intervention to address impairments and increase safet y and independence with activities necessary for safe discharge. Refer below for specific d etails regarding functional levels. Precautions/Limitations: vision impairment, hard of hearing, spinal, orthotic/bracing Precaution Comment: "C" lumbar brace, R AFO Left Upper Extremity Weight-Bearing: partial weight-bearing (no pushing, pulling, lifting > 5 lbs, no overhead work) Right Upper Extremity Weight-Bearing: partial weight-bearing (no pushing, pulling, lifting > 5 lbs, no overhead work) Previous Level of Function: Transferring: independent Ambulation: independent Toileting: independent Bathing: independent Dressing: independent Eating: independent Communication: understands/communicates without difficulty Swallowin-->swallows foods/liquids without difficulty Equipment Currently Used at Home: cane, straight, single point, other (see comments), 2 whe eled walker (FWW), 4 wheeled walker (4WW), long handled sponge, code clerk (R AFO) Prior Functional Level Comment: Pt says on good days he uses his cane and on bad days he us es his FWW at home; keeps 4WW in his truck and uses this for community mobility. Potential available assistance at discharge: Provides Primary Care For: spouse Role Relationships Comment: has Alzheimers; 's twin sister is caring for pt's while he is recovering. Pt's stepdaughter to assist pt upon d/c. Living Environment/Accessibility: Lives With: spouse Living Arrangements: mobile home Home Accessibility: stairs (2 railings present) Number of Stairs to Enter Home: 3 Number of Stairs Within Home: 0 Transportation Available: ([employer] people to assist with transportation, [id number] to a ssist if needed) Living Environment Comment: Pt has tub/shower combo w/ shower chair, hand held shower, and grab bars. Has ETS, 3 different walkers, and some canes at home. Uses 4WW for community mobi lity. Patient/Family s Goals: To get back on my feet and be able to take care of himself, his w shadi, and his home. Rehabilitation potential: good, to achieve stated therapy goals Physical Therapy Discharge Recommendations are: Recommended discharge disposition: long-term facility vs. inpt rehab Post discharge physical therapy recommendation: pt is motivated participant, will benefit from structured setting, minimum 5 days of therapy/week, ongoing low intensity therapy Equipment Recommendations: 2 wheeled walker (FWW) Planned Interventions: balance training, bed mobility training, gait training, home exerci se program, lumbar stabilization, manual therapy techniques, patient/family education, postu ral re-education, stair training, strengthening, transfer training Recommended Frequency: daily Patient Status/Goals: Reflects last filed data and may be from multiple contributors. Gait Pt with slow, antalgic gait and difficulty with weight shift, so short step length and decr eased clearance. Wearing AFO on R due to R footdrop. Pt appears unsteady but no actual LOB. Level of [place]: contact guard assist Assistive Device: 2 wheeled walker (FWW) Distance (feet): 20 ft x 2 Gait Deviations: double stance time increased, limb motion velocity decreased, step length decreased, stride length decreased, ijmou-ft-xnbfnb ratio decreased, ufy-yv-odhgr clearance decreased, weight-shifting ability decreased Stairs NT but stair goal set as pt has steps to access his home. Transfers Pt able to stand from raised bed height with CGA and cues for improved hand placement. Sit-Stand, Level of [place]: contact guard assist, verbal cues required Stand-Sit, Level of [place]: stand by assist, verbal cues required Iah-Kniqc-Klg, Assistive Device: 2 wheeled walker (FWW) Toilet, Level of [place]: stand by assist, verbal cues required Toilet, Assistive Device: grab bars, 2 wheeled walker (FWW) Safety Issues: step length decreased, weight-shifting ability decreased Impairments: decreased flexibility, sensation decreased, strength decreased, impaired irene ce, postural control impaired, pain Bed Mobility Pt provided with cues for improved log roll. Required light assist at trunk for supine > si t. Sit > supine not tested as pt was left up with OT. Assistive Device: bed rails Supine to Sit, Level of [place]: contact guard assist, verbal cues required Sit to Supine, Level of [place]: not tested Safety Issues: decreased use of arms for pushing/pulling, impaired trunk control for bed mo bility, decreased use of legs for bridging/pushing Impairments: decreased flexibility, sensation decreased, impaired balance, postural control impaired, pain Balance Sitting Balance: Static: good balance Sitting Balance: Dynamic: fair balance Standing Balance: Static: (Fair (-); pt requires UE support) Standing Balance: Dynamic: (Fair (-); pt requires UE support) Functional Endurance WFL; most impaired due to pain. ROM ROM grossly WLF; not tested beyond post op precautions. Strength L LE Strength: hip grossly 3-4/5; otherwise grossly > 4/5 during supine MMT R LE Strength: hip grossly 3-4/5, dorsiflexion 0/5; otherwise grossly > 4/5 during supine M MT Trunk strength: grossly 1-2/5, as observed during bed mobility PT Goal Review Date Most Recent Value STG Review Date 12/23/17 at 12/16/2017 1100 Butgrv-Czz-Iqwgsn Goal Most Recent Value STG Status new at 12/16/2017 1100 STG [place] Level modified independent at 12/16/2017 1100 STG Assistive Device none at 12/16/2017 1100 Qvi-Bgxzv-Gsh Goal Most Recent Value STG Status new at 12/16/2017 1100 STG [place] Level modified independent at 12/16/2017 1100 STG Assistive Device 2 wheeled walker (FWW) at 12/16/2017 1100 Gait Goal Most Recent Value STG Status new at 12/16/2017 1100 STG [place] Level modified independent at 12/16/2017 1100 STG Assistive Device 2 wheeled walker (FWW) at 12/16/2017 1100 STG Distance (feet) 75 at 12/16/2017 1100 Stair Goal Most Recent Value STG Status new at 12/16/2017 1100 STG [place] Level modified independent at 12/16/2017 1100 STG Assistive Device 2 rails at 12/16/2017 1100 STG Number of Stairs 3 at 12/16/2017 1100 Additional Goal #1 PT Most Recent Value STG Status new at 12/16/2017 1100 STG Pt to be able to state all post op precautions and manage LSO with assist from . P t says that even through she has Alzheimer's, he can still tell her how to do something and she will help him. at 12/16/2017 1100 Electronically signed by: Mini Limon, PT, 12/16/2017 17:57 lan of Care - Marisabel myriam, Edelmira Pierre, Film Processor - 12/16/2017 10:09 AM PDTProblem: Patient Care Overview (Adult) Goal: Care Team Goals & Evaluation PROBLEM-RELATED GOALS: 1. Fredis will call out appropriately for assistance and have no falls through 12/17/17 2. Fredis's pain will be controlled to allow for activity and rest through 12/17/17 3. Fredis will ambulate mod I by 12/17/17 4. Fredis will demonstrate proper lumbar precautions through 12/17/17 5. Fredis's incisions will heal w/o s/sx infection through 12/17/17 6. Fredis will void within six hours after arrival to floor by 12/15/17 at 2000 7. Fredis will eat 75-100% most meals and drink adequate amount fluids w/o n/v through 12/17/17 STRATEGY TO ACHIEVE GOALS: -encourage independence with activities -hourly rounding, call light within reach -monitor for s/sx pain and medicate prn -monitor for s/sx infection -monitor I/O -teach and monitor lumbar precautions RESTRAINT-RELATED GOALS: STRATEGIES TO ACHIEVE RESTRAINT GOALS: Spiritual Care Lele Mustafa is a 57 y.o. male who is admitted for Radiculopathy, lumbar region [ M54.16] Other biomechanical lesions of lumbar region [M99.83] Unspecified fracture of unspecified lumbar vertebra, subsequent encounter for fracture with nonunion [S32.009K] Foot drop, right foot [M21.371] Low back pain [M54.5]. [employer] visit was part of routine rounding. Spiritual Evaluation: The patient was resting in a bed attended by his . They welcomed spiritual care and in dicated that the timing was right. The patient just completed his 5th back surgery and expr essed hopefulness about it success and a history of going above and beyond expectations to [facility]. The patient and his attend the [employer] where they are activ e. He attributes his back problems to his work history and lack of rest. Spiritual Interventions: The ebd special education teacher attended, offered care, witnessed patient's story, explored meaning and offere d prayer. Spiritual Outcomes: The patient welcomed spiritual care and prayer and reflected on the causes of his physical problem. Spiritual Goals/Follow-up: Follow up as available or requested. lan of Care - Radha Machado RN - 12/16/2017 1:40 AM PDTProblem: Patient Care Overview (Adult) Goal: Care Team Goals & Evaluation PROBLEM-RELATED GOALS: 1. Fredis will call out appropriately for assistance and have no falls through 12/17/17 2. Fredis's pain will be controlled to allow for activity and rest through 12/17/17 3. Fredis will ambulate mod I by 12/17/17 4. Fredis will demonstrate proper lumbar precautions through 12/17/17 5. Fredis's incisions will heal w/o s/sx infection through 12/17/17 6. Fredis will void within six hours after arrival to floor by 12/15/17 at 2000 7. 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 Fredis c/o 7/10 pain; medicated w/20mg Oxycodone q4h. lan of Care - Josi Black, RN - 12/15/2017 6:43 PM PDTProblem: Patient Care Overview (Adult) Goal: Care Team Goals & Evaluation PROBLEM-RELATED GOALS: 1. Fredis will call out appropriately for assistance and have no falls through 12/17/17 2. Fredis's pain will be controlled to allow for activity and rest through 12/17/17 3. Fredis will ambulate mod I by 12/17/17 4. Fredis will demonstrate proper lumbar precautions through 12/17/17 5. Fredis's incisions will heal w/o s/sx infection through 12/17/17 6. Fredis will void within six hours after arrival to floor by 12/15/17 at 2000 7. Fredis will eat 75-100% most meals and drink adequate amount fluids w/o n/v through 12/17/17 STRATEGY TO ACHIEVE GOALS: -encourage independence with activities -hourly rounding, call light within reach -monitor for s/sx pain and medicate prn -monitor for s/sx infection -monitor I/O -teach and monitor lumbar precautions RESTRAINT-RELATED GOALS: STRATEGIES TO ACHIEVE RESTRAINT GOALS: Outcome: Improving Goal Evaluation: Fredis arrived to floor from PACU this afternoon around 1600. He is alert and oriented. Compl ains of pain to midline abdominal incision. Dressing to abdomen with dried drainage.CMS inta ct. 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 Strong dorsi/plantar flexion to left side, strong plantar and weak dorsi flexion to right side, history of right foot drop. C brace lois ntained. Tolerating clear liquid diet, denies n/v. VSS. Medicating with oxycodone for pain. Call light and bed alarm in place, makes needs known. lan of Care - Mini Peguero, PT - 12/15/2017 4:16 PM PDTProblem: Patient Care Overview (Adult) Goal: Care Team Goals & Evaluation PROBLEM-RELATED GOALS: STRATEGY TO ACHIEVE GOALS: RESTRAINT-RELATED GOALS: STRATEGIES TO ACHIEVE RESTRAINT GOALS: Therapy Plan of Care Missed Visit Note Patient Information Patient Name: Lele Mustafa Date of : 1960 Age: 57 y.o. The patient was unable to be seen for today's scheduled visit due to pt still not up on caroline gical floor. Plan: Eval Fri a.m. Electronically signed by: Mini Limon, PT, 12/15/2017 16:15 p Note - Kong Gillespie MD - 12/15/2017 1:45 PM PDTFormatting of this note might be different from the origin al. Operative Note Lele Mustafa 57 y.o. male 1960 [id number] Proc. Date 12/15/2017 Preop Dx Pseudoarthrosis of lumbar spine (S32.009K) Lumbar spondylolisthesis Lumbar foraminal stenosis Lumbar radiculopathy Right foot drop Postop Dx same Procedure Stage I 1. Minimally invasive S1 set screw removal Stage II 1. Anterior lumbar interbody arthrodesis 2. Anterior PEEK interbody spacer L5-S1 3. Anterior plating L5-S1 with Brigade Stage III 1. Minimally open posterior lumbar fusion 2. Posterolateral lumbar arthrodesis L5-S1 3. Posterior spinal instrumentation L4-ilium with use of Precept 4. L3 hardware removal without replacement 5. Stereotactic navigation for spinal instrumentation using Stealth/O-arm Anesthesia General Surgeon Stage II Kai Gillespie MD - Co-Surgeon Nano Connelly MD - Co-Surgeon Stage I and III Kai Gillespie MD - Primary Soindo Palomo PA-C EBL 306 Findings L5-S1 subsided cage and non-union. Left S1 broken screw. Complications none Specimens * No specimens in log * Drains none Operative details: Stage I After obtaining consent, the patient was taken to the operating room and placed under gener al anesthesia. He was then positioned in a prone position. His face, neck, chest and extrem ities positioned and padded appropriately. His backwas prepped and draped in standard fashi on and a timeout was performed. All members of the surgical team agreed with the timeout. His prior incisions were reopened bilaterally and then cautery was used for hemostasis. Di lators were docked on the S1 set screws and then a METRx tube was inserted. The S1 set scre ws were removed bilaterally. Skin sangita were placed for closure and the wounds were dressed with tegaderms and gauze p adding. All counts were reported as correct. Stage II He was then positioned in a supine. His head, chest, and extremities positioned and padded appropriately. His abdomen was prepped and draped in standard fashion and a timeout was perf ormed. All members of the surgical team agreed with the timeout. Fluoroscopy was then used to localize the levels of L5-S1 on lateral fluoroscopy, and a ski n incision was made midline by Dr. Connelly. I was his co-surgeon for the approach dictated se messina. The L5-S1 level was identified. The disc was incised and then the disc was removed with pituitary rongeurs and curettes. The prior cage was found to be nearly completely subsided. It was mobilized from the endplate with an osteotome and then removed. The endplates were prepared for arthrodesis. Trials were then inserted and a 20 degree by 10 PH mm spacer was determined to be the appropriate size. A PEEK spacer was prepared filling it with [place]/B MP and then tamping it into the interspace at L5-S1. Retaining screws were placed at L5 and S1 through the PEEK using 25 mm screws on the upper and lower right screw holes. A 40 mm B rigade plate was then positioned over L5-S1. 6.5 mm x 30 mm screws were used at L5 and 6.5 x 35 mm screws were used at S1. The top screws' hex stripped somewhat and full locking was achieved on the right but only partially on the left. The retractor was then removed obtaining hemostasis fully. Dr. Connelly was my co-surgeon for the above. He then performed his closure of the abdomen again dictated separately. All counts were reported as correct. Stage III He was then positioned in a prone position on the Javier axis table with his face, neck, c hest and extremities positioned and padded appropriately. His back was prepped and draped in standard fashion and a timeout was performed. All members of the surgical team agreed with the timeout. The posterior portion commenced. Marion were removed and then using METRx tubes the hardware from L3-L5 was docked on Webcollagejessie. The set screws were removed bilaterally. The rods were then removed. The L3 screw s were removed bilaterally. The L5 left screw was removed. The S1 screws were removed bila terally noting fracture at the neck of the S1 left screw. An easyout was used to remove the remaining S1 screw. On the patient's left side, a METRx tube was docked down on the L5-S1 lamina facet complex. Bovie cautery was used to expose the lamina of L5 and S1 and the L5-S1 facet. High-speed drilling was used to decorticate the exposed bone, and then BMP and Christie were packed in t he posterolateral aspect of the spine along the decorticated bone. This completed the poste rolateral fusion from L5-S1. 9.5 x 50 mm screws were reinserted at S1 using Precept. The towers were reconnected to the left L4 screw and the right L4 and L5 screws. Temporary rods were placed. The Stealth frame was secured to the patient. An O-arm spin was obtained. 3D images were acquired and used for planning. 8.5 x 90 mm sc rews were selected to obtain bicortical purchase given his failed prior hardware. The tempo rary rods were removed. A navigated awl tap was then used bilaterally to tap a sacroiliac trajectory along where th e temporary haylee was seen on the O-arm scan. The 8.5 x 90 Precept screws were then inserted bilaterally into the planned sacroiliac traj ectory obtaining bicortical purchase. The screw towers were aligned, and then a 85 and 90 mm haylee was passed through the towers an d successfully reduced down on the left and right respectively. Set screws were inserted an d then final tightening of the set screws was performed. Then the towers and haylee passer wer e removed fully. Final fluoroscopic images confirmed appropriate placement of instrumentatio n. 20 mL of exparel was infiltrated into the paraspinous muscles. The fascia was then closed bilaterally with 0 Vicryl sutures, followed by closure of the sk in with two layers of 2-0 Quill-type sutures. Then 20 mL of 0.5% Marcaine with epinephrine w as infiltrated in the back followed by closure of the skin with skin sangita. The wounds wer e dressed with steristrips/Band-Aids. All counts were reported as correct. The patient tolerated the procedure and was transferr ed to the recovery room in stable condition. Electronically signed by: Kai Gillespie MD 12/15/2017 13:41 [facility] rief Op Note - Kong Gillespie MD - 12/15/2017 1:41 PM PDTFormatting of this note might be different from the origin al. Brief Operative Note Lele Mustafa 57 y.o. male 1960 [id number] Proc. Date 12/15/2017 Preop Dx Pseudoarthrosis of lumbar spine (S32.009K) Lumbar spondylolisthesis Lumbar foraminal stenosis Lumbar radiculopathy Right foot drop Postop Dx same Procedure Stage I 1. Minimally invasive S1 set screw removal Stage II 1. Anterior lumbar interbody arthrodesis 2. Anterior PEEK interbody spacer L5-S1 3. Anterior plating L5-S1 with Brigade Stage III 1. Minimally open posterior lumbar fusion 2. Posterolateral lumbar arthrodesis L5-S1 3. Posterior spinal instrumentation L4-ilium with use of Precept 4. L3 hardware removal without replacement 5. Stereotactic navigation for spinal instrumentation using Stealth/O-arm Anesthesia General Surgeon Stage II Kai Gillespie MD - Co-Surgeon Nano Connelly MD - Co-Surgeon Stage I and III Kai Gillespie MD - Primary Sonido Palomo PA-C EBL 306 Findings L5-S1 subsided cage and non-union. Left S1 broken screw. Complications none Specimens * No specimens in log * Drains none Electronically signed by: Kai Gillespie MD 12/15/2017 13:41 [facility] signed by Kai Gillespie MD at 018 1:45 PM PDTOp Note - Nano Connelly MD - 12/15/2017 1:15 PM PDT [facility] OPERATIVE REPORT PATIENT NAME: Lele Mustafa AGE: 57 y.o. TODAY'S DATE: 01/01/2018 Surgeon: Surgeon(s): MD Nano Meyer MD co-surgeon Surgical Assists: Sonido Palomo PA-C Anesthesiologist: No responsible provider has been recorded for the case. Anesthesia: General Pre-op Diagnosis: Lumbar radiculopathy (M54.16), Foraminal stenosis of lumbar region (M99.8 3), Right foot drop (M21.371), Pseudoarthrosis of lumbar spine (S32.009K), Lumbar facet join t pain (M54.5) Post-op Diagnosis: Same Procedure: Anterior exposure for anterior lumbar interbody fusion of L5-S1 with anterior plating. Indications & Findings: 57-year-old male who had lumbar fusion 1 year ago but continues to have a right foot drop and is deemed a good surgical candidate or anterior lumbar interbody fusion of L5-S1 by Dr. Rojo. I explained the risks, benefits, and alternatives and his qu estions were answered. Senna consent for the procedure. The risks we discussed included bu t were not limited to bleeding, infection, hernia, wound healing complications, scar, injury to bowel, injury to ureter requiring further surgery, injury to blood vessels resulting in massive hemorrhage and requiring transfusion, injury to nerves resulting in bladder or bowel or sexual dysfunction including retrograde ejaculation, unforeseen complications and . He understands the risks and wishes to proceed. There is no obvious compression to the blood vessels and the pulse oximeter on the left gre at toe maintained 100% throughout the duration of the case. Pulses at b/l DP were intact a t the end of the case. Estimated Blood Loss: 306 mL Transfused: No Complications: none Technique/Procedure Description: The patient was examined in the preoperative area and ther e are no changes to history or physical. He had 2+ DP pulse bilaterally and pulses were ma rked. An interval note was completed. He is taken to the operating room and placed in villeda pine position on the operative room table and general anesthesia was induced. He was intub ated. Baumann catheter was placed. The patient was placed supine with arms outstretched with care to protect bony prominences. Stage 1 was posterior approach - see dictation by Dr. Gillespie . I was present only for stage 2 Using fluoroscopy the L5-S1 disc space was marked as well as the proposed skin incision. The abdomen was clipped for hair removal and then was prepped and draped in the usual ster ile fashion. Atimeout was taken to confirm the correct patient, position, procedure and implants. A vertical infraumbilical incision was made. Subcutaneous tissues were divided down to th e fascia. The midline was identified as well as the rightrectus sheath. A vertical inc ision was made in the anterior rightrectus sheath. The rectus muscle was dissected from the posterior attachments. The deep inferior epigastric artery was kept intact. The pr o-peritoneal fatty tissue was sweptto the medial side. Lower 2 cm of the posterior rec tus sheath was divided. Careful blunt dissection was carried lateral and the abdominal con tents were swept medial. Dissection was carried down to the psoas muscle, then the externa l iliac artery and the ureter was identified. The left iliac artery and vein were left in place and the ureter was swept upwards with the peritoneal contents. Theretractor was placed and with blunt dissection theiliac artery was dissected up to t he vena cava bifurcation. The left iliac vein was gently dissected to the left. The pres acral tissue was cauterized with aqua mantis and divided. The middle sacral vessels were clipped and divided. There wasminimal pressure on the left iliac artery. The pulse ox imeter on the left great toe continued at 100% throughout this time of retraction. The chula rosurgeon then proceeded with the spinal component of the procedureand I assisted in that portion of the case-- please see that dictation. Retractors were removed. There was no apparent bleeding. There is palpable flow in th e external iliac arteries bilaterally.The abdominal contents were allowed to resume their anatomic position. The anterior rectus sheath was approximated using a running looped 0 PD S suture. The subcutaneous fat was approximated using interrupted 3-0 Vicryl suture. The skin edges were approximated using a 4-0 Vicrylsubcuticular suture. Mastisol and Steri- Strips were placed over the incision and then Telfa and Tegaderm dressing was applied. The patient was awoken and taken to the PACU in stable surgical condition.Hetolerated the p rocedure well. The needle and sponge counts were reported as correct. Postoperative Plan: Admit to neurosurgery team Electronically signed by: Nano Connelly MD, 01/01/2018 13:15 [facility] [facility] nterval H&P Note (unlinked) - Nano Connelly MD - 12/15/2017 7:47 AM PDT [facility] [place] SURGICAL INTERIM HISTORY AND PHYSICAL UPDATE Pt. Name/Age/: Lele Mustafa 57 y.o. 1960 Date of admission: 12/15/2017 The current H&P was reviewed. The patient was reexamined. Re-evaluation of the patient co nfirms the necessity for the scheduled procedure. No change has occurred in the patient s condition since the H&P was completed less than 30 days ago. LABS: Lab Results Component Value Date NA 134 (L) 11/08/2017 K 4.3 11/08/2017 CL 95 (L) 11/08/2017 CO2 29 11/08/2017 BUN 30 (H) 11/08/2017 CREA 0.92 11/08/2017 Lab Results Component Value Date NA 134 (L) 11/08/2017 K 4.3 11/08/2017 CL 95 (L) 11/08/2017 CO2 29 11/08/2017 BUN 30 (H) 11/08/2017 CREA 0.92 11/08/2017 GLU 360 (H) 11/08/2017 Lab Results Component Value Date WBC 5.8 11/08/2017 HGB 16.3 11/08/2017 HCT 46.7 11/08/2017 MCV 90.2 11/08/2017 PLT 153 11/08/2017 No results found for: INR, PROTIME PHYSICIAN'S VERIFICATION OF INFORMED CONSENT The patient was counseled regarding the procedure, its indications, risks, potential compli cations and alternatives and any questions were answered. Consent was obtained. PHYSICIAN'S VERIFICATION OF INFORMED CONSENT FOR BLOOD TRANSFUSION There is not a reasonable possibility that blood transfusion will be necessary as a result of the patient's procedure. Electronically signed by: Nano Connelly, 12/15/2017 7:47 [facility] documented in thi s encounter Plan of Treatment + +------+--------+ + + | Name | Type | Priori | Associated Diagnoses | Order Schedule | | | | ty | | | + +------+--------+ + + | DME: Walker | DME | Routin | Gait abnormality | DME 1 Time for 1 | | | | e | | Occurrences starting | | | | | | 12/15/2017 until | | | | | | 12/15/2017 | + +------+--------+ + + documented as of this encounter Procedures + +--------+ + + + | Procedure Name | Priori | Date/Time | Associated Diagnosis | Comments | | | ty | | | | + +--------+ + + + | POC GLUCOSE | Routin | 12/19/2017 | | Results for this | | | e | 11:52 AM | | procedure are in the | | | | PDT | | results section. | + +--------+ + + + | POC GLUCOSE | Routin | 12/19/2017 | | Results for this | | | e | 7:04 AM | | procedure are in the | | | | PDT | | results section. | + +--------+ + + + | POC GLUCOSE | Routin | 12/19/2017 | | Results for this | | | e | 6:44 AM | | procedure are in the | | | | PDT | | results section. | + +--------+ + + + | POC GLUCOSE | Routin | 12/18/2017 | | Results for this | | | e | 8:49 PM | | procedure are in the | | | | PDT | | results section. | + +--------+ + + + | POC GLUCOSE | Routin | 12/18/2017 | | Results for this | | | e | 4:50 PM | | procedure are in the | | | | PDT | | results section. | + +--------+ + + + | POC GLUCOSE | Routin | 12/18/2017 | | Results for this | | | e | 12:09 PM | | procedure are in the | | | | PDT | | results section. | + +--------+ + + + | POC GLUCOSE | Routin | 12/18/2017 | | Results for this | | | e | 6:29 AM | | procedure are in the | | | | PDT | | results section. | + +--------+ + + + | POC GLUCOSE | Routin | 12/18/2017 | | Results for this | | | e | 1:44 AM | | procedure are in the | | | | PDT | | results section. | + +--------+ + + + | POC GLUCOSE | Routin | 12/17/2017 | | Results for this | | | e | 8:21 PM | | procedure are in the | | | | PDT | | results section. | + +--------+ + + + | POC GLUCOSE | Routin | 12/17/2017 | | Results for this | | | e | 5:17 PM | | procedure are in the | | | | PDT | | results section. | + +--------+ + + + | POC GLUCOSE | Routin | 12/17/2017 | | Results for this | | | e | 12:09 PM | | procedure are in the | | | | PDT | | results section. | + +--------+ + + + | POC GLUCOSE | Routin | 12/17/2017 | | Results for this | | | e | 6:04 AM | | procedure are in the | | | | PDT | | results section. | + +--------+ + + + | POC GLUCOSE | Routin | 12/16/2017 | | Results for this | | | e | 8:26 PM | | procedure are in the | | | | PDT | | results section. | + +--------+ + + + | POC GLUCOSE | Routin | 12/16/2017 | | Results for this | | | e | 5:08 PM | | procedure are in the | | | | PDT | | results section. | + +--------+ + + + | POC GLUCOSE | Routin | 12/16/2017 | | Results for this | | | e | 12:16 PM | | procedure are in the | | | | PDT | | results section. | + +--------+ + + + | POC GLUCOSE | Routin | 12/16/2017 | | Results for this | | | e | 6:13 AM | | procedure are in the | | | | PDT | | results section. | + +--------+ + + + | POC GLUCOSE | Routin | 12/15/2017 | | Results for this | | | e | 8:45 PM | | procedure are in the | | | | PDT | | results section. | + +--------+ + + + | POC GLUCOSE | Routin | 12/15/2017 | | Results for this | | | e | 5:10 PM | | procedure are in the | | | | PDT | | results section. | + +--------+ + + + | XR LUMBAR SPINE 2 OR | STAT | 12/15/2017 | | Results for this | | 3 VW | | 4:03 PM | | procedure are in the | | | | PDT | | results section. | + +--------+ + + + | FL JANICE STATS NO | Routin | 12/15/2017 | | Results for this | | CHARGE | e | 2:00 PM | | procedure are in the | | | | PDT | | results section. | + +--------+ + + + | POC GLUCOSE | Routin | 12/15/2017 | | Results for this | | | e | 1:25 PM | | procedure are in the | | | | PDT | | results section. | + +--------+ + + + | LAMINECTOMY ALIF | | 12/15/2017 | Lumbar | | | ANTERIOR APPROACH | | 7:49 AM | radiculopathy | | | | | PDT | Foraminal stenosis | | | | | | of lumbar region | | | | | | Right foot drop | | + +--------+ + + + +---+--------+ | | Case | | | Notes | | | | | | Instru | | | ments: | | | | | | C-Arm, | | | | | | Drill, | | | | | | Micros | | | cope, | | | MetRx, | | | | | | O-Arm, | | | | | | Naviga | | | tion | | | Instru | | | ments | | | Biolog | | | ics: | | | BMP, | | | Grafto | | | n | | | Implan | | | ts: | | | Precep | | | t, | | | Brigad | | | e, | | | Plate | | | and | | | PeekTa | | | ble: | | | Jackso | | | n [place] | | | | | | demurrage man | | | ep: | | | Armando | +---+--------+ | | | | | Specia | | | l | | | Needs | | | | | | Instru | | | ments: | | | | | | C-Arm, | | | | | | Drill, | | | | | | Micros | | | cope, | | | MetRx, | | | | | | O-Arm, | | | | | | Naviga | | | tion | | | Instru | | | ments | | | Biolog | | | ics: | | | BMP, | | | Grafto | | | n | | | Implan | | | ts: | | | Precep | | | t, | | | Brigad | | | e, | | | Plate | | | and | | | PeekTa | | | ble: | | | Jackso | | | n [place] | | | | | | demurrage man | | | ep: | | | Armando | +---+--------+ + +--------+ +---+ + | POC GLUCOSE | Routin | 12/15/2017 | | Results for this | | | e | 6:48 AM | | procedure are in the | | | | PDT | | results section. | + +--------+ +---+ + documented in this encounter Results POC Glucose (12/19/2017 11:52 AM PDT) + +---------+ + + + | Component | Value | Ref Range | Performed | Pathologist | | | | | At | Signature | + +---------+ + + + | Glucose, | 137 (H) | 70 - 109 mg/dL | [facility] | | [facility] | | | | | [facility] | | | | | | [facility] - | | | | | | LABORATORY | | + +---------+ + + + + + | Specimen | + + | Blood | + + + + + + + | Performing | Address | City/State/Zipcode | Phone Number | | Organization | | | | + + + + + | [facility] | [address] | [place] | [phone] | | [facility] | | [address] | | | - LABORATORY | | | | + + + + + POC Glucose (12/19/2017 7:04 AM PDT) + +-------+ + + + | Component | Value | Ref Range | Performed | Pathologist | | | | | At | Signature | + +-------+ + + + | Glucose, | 76 | 70 - 109 mg/dL | [facility] | [facility] | | [facility] | | | | | | [facility] | | | | | | C[facility] - | | | | | | LABORATORY | | + +-------+ + + + + + | Specimen | + + | Blood | + + + + + + + | Performing | Address | City/State/Zipcode | Phone Number | | Organization | | | | + + + + + | [facility] | [address] | [place] | [phone] | | [facility] | | [address] | | | - LABORATORY | | | | + + + + + POC Glucose (12/19/2017 6:44 AM PDT) + +--------+ + + + | Component | Value | Ref Range | Performed | Pathologist | | | | | At | Signature | + +--------+ + + + | Glucose, | 60 (L) | 70 - 109 mg/dL | [facility] | | [facility] | | | [facility] | | | | | | [facility] | | | | | | CENTER - | | | | | | LABORATORY | | + +--------+ + + + + + | Specimen | + + | Blood | + + + + + + + | Performing | Address | City/State/Zipcode | Phone Number | | Organization | | | | + + + + + | [facility] | [address] | [place] | [phone] | | [facility] | | [address] | | | - LABORATORY | | | | + + + + + POC Glucose (12/18/2017 8:49 PM PDT) + +---------+ + + + | Component | Value | Ref Range | Performed | Pathologist | | | | | At | Signature | + +---------+ + + + | Glucose, | 227 (H) | 70 - 109 mg/dL | [facility] | [facility] | | [facility] | | | | | | [facility] | | | | | | CENTER - | | | | | | LABORATORY | | + +---------+ + + + + + | Specimen | + + | Blood | + + + + + + + | Performing | Address | City/State/Zipcode | Phone Number | | Organization | | | | + + + + + | [facility] | [address] | [place] | [phone] | | [facility] | | [address] | | | - LABORATORY | | | | + + + + + POC Glucose (12/18/2017 4:50 PM PDT) + +---------+ + + + | Component | Value | Ref Range | Performed | Pathologist | | | | | At | Signature | + +---------+ + + + | Glucose, | 148 (H) | 70 - 109 mg/dL | [facility] | [facility] | | [facility] | | | | | | [facility] | | | | | | CENTER - | | | | | | LABORATORY | | + +---------+ + + + + + | Specimen | + + | Blood | + + + + + + + | Performing | Address | City/State/Zipcode | Phone Number | | Organization | | | | + + + + + | [facility] | [address] | [place] | [phone] | | [facility] | | [address] | | | - LABORATORY | | | | + + + + + POC Glucose (12/18/2017 12:09 PM PDT) + +---------+ + + + | Component | Value | Ref Range | Performed | Pathologist | | | | | At | Signature | + +---------+ + + + | Glucose, | 225 (H) | 70 - 109 mg/dL | [facility] | | | [facility] | | | [facility] | | | | | | [facility]ICAL | | | | | | CENTER - | | | | | | LABORATORY | | + +---------+ + + + + + | Specimen | + + | Blood | + + + + + + + | Performing | Address | City/State/Zipcode | Phone Number | | Organization | | | | + + + + + | [facility] | [address] | [place] | [phone] | | [facility] | | [address] | | | - LABORATORY | | | | + + + + + POC Glucose (12/18/2017 6:29 AM PDT) + +---------+ + + + | Component | Value | Ref Range | Performed | Pathologist | | | | | At | Signature | + +---------+ + + + | Glucose, | 119 (H) | 70 - 109 mg/dL | [facility] | | | [facility] | | | [facility] | | | | | | MEDICAL | | | | | | CENTER - | | | | | | LABORATORY | | + +---------+ + + + + + | Specimen | + + | Blood | + + + + + + + | Performing | Address | City/State/Zipcode | Phone Number | | Organization | | | | + + + + + | [facility] | [address] | [place] | [phone] | | [facility] | | [address] | | | - LABORATORY | | | | + + + + + POC Glucose (12/18/2017 1:44 AM PDT) + +-------+ + + + | Component | Value | Ref Range | Performed | Pathologist | | | | | At | Signature | + +-------+ + + + | Glucose, | 70 | 70 - 109 mg/dL | [facility] | | [facility] | | [facility] | | | | | | MEDICAL | | | | | | CENTER - | | | | | | LABORATORY | | + +-------+ + + + + + | Specimen | + + | Blood | + + + + + + + | Performing | Address | City/State/Zipcode | Phone Number | | Organization | | | | + + + + + | [facility] | [address] | [place] | [phone] | | [facility] | | [address] | | | - LABORATORY | | | | + + + + + POC Glucose (12/17/2017 8:21 PM PDT) + +---------+ + + + | Component | Value | Ref Range | Performed | Pathologist | | | | | At | Signature | + +---------+ + + + | Glucose, | 151 (H) | 70 - 109 mg/dL | [facility] | | | [facility] | | | [facility] | | | | | | MEDICAL | | | | | | CENTER - | | | | | | LABORATORY | | + +---------+ + + + + + | Specimen | + + | Blood | + + + + + + + | Performing | Address | City/State/Zipcode | Phone Number | | Organization | | | | + + + + + | [facility] | [address] | [place] | [phone] | | [facility] | | [address] | | | - LABORATORY | | | | + + + + + POC Glucose (12/17/2017 5:17 PM PDT) + +---------+ + + + | Component | Value | Ref Range | Performed | Pathologist | | | | | At | Signature | + +---------+ + + + | Glucose, | 151 (H) | 70 - 109 mg/dL | [facility] | | | P[facility] | | | [facility] | | | | | | MEDICAL | | | | | | CENTER - | | | | | | LABORATORY | | + +---------+ + + + + + | Specimen | + + | Blood | + + + + + + + | Performing | Address | City/State/Zipcode | Phone Number | | Organization | | | | + + + + + | [facility] | [address] | [place] | [phone] | | [facility] | | [address] | | | - LABORATORY | | | | + + + + + POC Glucose (12/17/2017 12:09 PM PDT) + +---------+ + + + | Component | Value | Ref Range | Performed | Pathologist | | | | | At | Signature | + +---------+ + + + | Glucose, | 158 (H) | 70 - 109 mg/dL | [facility] | | | [facility] | | | [facility] | | | | | | MEDICAL | | | | | | CENTER - | | | | | | LABORATORY | | + +---------+ + + + + + | Specimen | + + | Blood | + + + + + + + | Performing | Address | City/State/Zipcode | Phone Number | | Organization | | | | + + + + + | [facility] | [address] | [place] | [phone] | | [facility] | | [address] | | | - LABORATORY | | | | + + + + + POC Glucose (12/17/2017 6:04 AM PDT) + +---------+ + + + | Component | Value | Ref Range | Performed | Pathologist | | | | | At | Signature | + +---------+ + + + | Glucose, | 119 (H) | 70 - 109 mg/dL | [facility] | | | P[facility] | | | [facility] | | | | | | MEDICAL | | | | | | CENTER - | | | | | | LABORATORY | | + +---------+ + + + + + | Specimen | + + | Blood | + + + + + + + | Performing | Address | City/State/Zipcode | Phone Number | | Organization | | | | + + + + + | [facility] | [address] | [place], [place] | [phone] | | [facility] | | [address] | | | - LABORATORY | | | | + + + + + POC Glucose (12/16/2017 8:26 PM PDT) + +---------+ + + + | Component | Value | Ref Range | Performed | Pathologist | | | | | At | Signature | + +---------+ + + + | Glucose, | 155 (H) | 70 - 109 mg/dL | [facility] | | | P[facility] | | | [facility] | | | | | | MEDICAL | | | | | | CENTER - | | | | | | LABORATORY | | + +---------+ + + + + + | Specimen | + + | Blood | + + + + + + + | Performing | Address | City/State/Zipcode | Phone Number | | Organization | | | | + + + + + | [facility] | [address] | [place] | [phone] | | [facility] | | [address] | | | - LABORATORY | | | | + + + + + POC Glucose (12/16/2017 5:08 PM PDT) + +---------+ + + + | Component | Value | Ref Range | Performed | Pathologist | | | | | At | Signature | + +---------+ + + + | Glucose, | 146 (H) | 70 - 109 mg/dL | [facility] | | | POC | | | [facility] | | | | | | MEDICAL | | | | | | CENTER - | | | | | | LABORATORY | | + +---------+ + + + + + | Specimen | + + | Blood | + + + + + + + | Performing | Address | City/State/Zipcode | Phone Number | | Organization | | | | + + + + + | [facility] | [address] | [place] | [phone] | | [facility] | | [address] | | | - LABORATORY | | | | + + + + + POC Glucose (12/16/2017 12:16 PM PDT) + +---------+ + + + | Component | Value | Ref Range | Performed | Pathologist | | | | | At | Signature | + +---------+ + + + | Glucose, | 118 (H) | 70 - 109 mg/dL | [facility] | | | POC | | | [facility] | | | | | | MEDICAL | | | | | | CENTER - | | | | | | LABORATORY | | + +---------+ + + + + + | Specimen | + + | Blood | + + + + + + + | Performing | Address | City/State/Zipcode | Phone Number | | Organization | | | | + + + + + | [facility] | [address] | [place] | [phone] | | [facility] | | [address] | | | - LABORATORY | | | | + + + + + POC Glucose (12/16/2017 6:13 AM PDT) + +---------+ + + + | Component | Value | Ref Range | Performed | Pathologist | | | | | At | Signature | + +---------+ + + + | Glucose, | 234 (H) | 70 - 109 mg/dL | [facility] | | | P[facility] | | | [facility] | | | | | | MEDICAL | | | | | | CENTER - | | | | | | LABORATORY | | + +---------+ + + + + + | Specimen | + + | Blood | + + + + + + + | Performing | Address | City/State/Zipcode | Phone Number | | Organization | | | | + + + + + | [facility] | [address] | [place] | [phone] | | [facility] | | [address] | | | - LABORATORY | | | | + + + + + POC Glucose (12/15/2017 8:45 PM PDT) + +---------+ + + + | Component | Value | Ref Range | Performed | Pathologist | | | | | At | Signature | + +---------+ + + + | Glucose, | 216 (H) | 70 - 109 mg/dL | [facility] | | | POC | | | [facility] | | | | | | MED[facility] | | | | | | CENTER - | | | | | | LABORATORY | | + +---------+ + + + + + | Specimen | + + | Blood | + + + + + + + | Performing | Address | City/State/Zipcode | Phone Number | | Organization | | | | + + + + + | [facility] | [address] | [place] | [phone] | | [facility] | | [address] | | | - LABORATORY | | | | + + + + + POC Glucose (12/15/2017 5:10 PM PDT) + +---------+ + + + | Component | Value | Ref Range | Performed | Pathologist | | | | | At | Signature | + +---------+ + + + | Glucose, | 259 (H) | 70 - 109 mg/dL | [facility] | | | P[facility] | | | [facility] | | | | | | MEDICAL | | | | | | CENTER - | | | | | | LABORATORY | | + +---------+ + + + + + | Specimen | + + | Blood | + + + + + + + | Performing | Address | City/State/Zipcode | Phone Number | | Organization | | | | + + + + + | [facility] | [address] | [place], [place] | [phone] | | [facility] | | [address] | | | - LABORATORY | | | | + + + + + XR Lumbar Spine 2 or 3 Vw (12/15/2017 4:03 PM PDT) + + | Specimen | + + | | + + + + + | Narrative | Performed At | + + + | EXAM:XR LUMBAR SPINE 2 OR 3 VW CLINICAL HISTORY: post op | [facility] | | COMPARISON: Lumbar spine radiographs dated 08/20/2017. Outside CT | | | dated 08/25/2017 FINDINGS: Frontal and lateral views of the lumbar | | | spine. Interval removal of hardware at L3. Posterior and interbody | | | graft changes remain at L4-L5. Revision of fusion changes at L5-S1 | | | to include anterior and interbody changes. There is also been the | | | addition of bilateral sacral screws. Interbody grafts at L3-L4 and | | | L4-L5 are stable. There are expected operative changes in the soft | | | tissues. IMPRESSION - No radiographic evidence for an | | | immediate complication. Dictated and Signed by: Jim Devi | | | MD Electronically signed: 12/15/2017 4:36 PM | | + + + + + | Procedure Note | + + | Juni Mcintosh Results In - 12/15/2017 4:39 PM PDT EXAM:XR LUMBAR SPINE 2 OR 3 VW | | | | CLINICAL HISTORY: post op | | | | COMPARISON: Lumbar spine radiographs dated 08/20/2017. Outside CT dated 08/25/2017 | | | | FINDINGS: Frontal and lateral views of the lumbar spine. Interval removal of | | hardware at L3. Posterior and interbody graft changes remain at L4-L5. | | Revision of fusion changes at L5-S1 to include anterior and interbody changes. | | There is also been the addition of bilateral sacral screws. Interbody grafts at | | L3-L4 and L4-L5 are stable. There are expected operative changes in the soft | | tissues. | | | | IMPRESSION - | | | | No radiographic evidence for an immediate complication. | | | | Dictated and Signed by: Jim Devi MD | | Electronically signed: 12/15/2017 4:36 PM | + + + +---------+ + + | Performing | Address | City/State/Zipcode | Phone Number | | Organization | | | | + +---------+ + + | [facility] | | | | + +---------+ + + FL C-Arm Stats No Charge (12/15/2017 2:00 PM PDT) + + | Specimen | + + | | + + + + + | Narrative | Performed At | + + + | This exam has been auto-finalized and the interpretation may exist | [facility] | | elsewhere in the chart. | | + + + + +---------+ + + | Performing | Address | City/State/Zipcode | Phone Number | | Organization | | | | + +---------+ + + | [facility] | | | | + +---------+ + + POC Glucose (12/15/2017 1:25 PM PDT) + +---------+ + + + | Component | Value | Ref Range | Performed | Pathologist | | | | | At | Signature | + +---------+ + + + | Glucose, | 220 (H) | 70 - 109 mg/dL | [facility] | | | [facility] | | | [facility] | | | [facility] | | [facility] | | | | | | CENTER - | | | | | | LABORATORY | | + +---------+ + + + + + | Specimen | + + | Blood | + + + + + + + | Performing | Address | City/State/Zipcode | Phone Number | | Organization | | | | + + + + + | [facility] | [address] | [place] | [phone] | | [facility] | | [address] | | | - LABORATORY | | | | + + + + + POC Glucose (12/15/2017 6:48 AM PDT) + +---------+ + + + | Component | Value | Ref Range | Performed | Pathologist | | | | | At | Signature | + +---------+ + + + | Glucose, | 140 (H) | 70 - 109 mg/dL | [facility] | | | P[facility] | | | [facility] | | | | | | MEDICAL | | | | | | CENTER - | | | | | | LABORATORY | | + +---------+ + + + + + | Specimen | + + | Blood | + + + + + + + | Performing | Address | City/State/Zipcode | Phone Number | | Organization | | | | + + + + + | [facility] | [address] | [place], [place] | [phone] | | [facility] | | [address] | | | - LABORATORY | | | | + + + + + documented in this encounter Visit Diagnoses + + | Diagnosis | + + | Gait abnormality - Primary Abnormality of gait | + + documented in this encounter Administered Medications + +--------+ + +------+------+ | Medication Order | MAR | Action | Dose | Rate | Site | | | Action | Date | | | | + +--------+ + +------+------+ | acetaminophen (TYLENOL) tablet | Given | 12/16/19 | 1,000 mg | | | | 1,000 mg 1,000 mg, Oral, ONCE, | | 18 6:50 | | | | | Phyllis 12/15/17 at 0700, For 1 dose, | | AM PDT | | | | | Pre-op | | | | | | + +--------+ + +------+------+ +---+---+ | | | +---+---+ + +-------+ +--------+---+---+ | acetaminophen (TYLENOL) tablet | Given | 12/20/19 | 650 mg | | | | 650 mg 650 mg, Oral, EVERY 4 | | 18 12:00 | | | | | HOURS PRN, Pain, Fever, Starting | | PM PDT | | | | | Phyllis 12/15/17 at 1627, | | | | | | | Post-op/Phase II | | | | | | + +-------+ +--------+---+---+ +-------+ +--------+---+---+ | Given | 12/19/19 | 650 mg | | | | | 18 10:23 | | | | | | PM PDT | | | | +-------+ +--------+---+---+ | Given | 12/19/19 | 650 mg | | | | | 18 2:39 | | | | | | PM PDT | | | | +-------+ +--------+---+---+ +---+---+ | | | +---+---+ + +---------+ +-----+ +---+ | ceFAZolin (ANCEF, KEFZOL) 100 | New Bag | 12/17/19 | 2 g | 40 mL/hr | | | mg/mL IV syringe 2 g 2 g, | | 18 12:25 | | | | | Intravenous, Administer over 30 | | AM PDT | | | | | Minutes, EVERY 8 HOURS INTERVAL, | | | | | | | First dose on [facility] 12/15/17 at | | | | | | | 1645, For 2 doses, Start 8 hours | | | | | | | after previous dose. Last dose | | | | | | | to be given within 24 hours of | | | | | | | surgery end time., Post-op/Phase | | | | | | | II, Indications: Surgical | | | | | | | Prophylaxis | | | | | | + +---------+ +-----+ +---+ +---------+ +-----+ +---+ | New Bag | 12/16/19 | 2 g | 40 mL/hr | | | | 18 6:14 | | | | | | PM PDT | | | | +---------+ +-----+ +---+ +---+---+ | | | +---+---+ + +-------+ +-------+---+---+ | cyclobenzaprine (FLEXERIL) | Given | 12/20/19 | 10 mg | | | | tablet 10 mg 10 mg, Oral, EVERY | | 18 8:27 | | | | | 8 HOURS PRN, Muscle spasms, | | AM PDT | | | | | Starting [facility] 12/15/17 at 1627, Use | | | | | | | if methocarbamol ineffective or | | | | | | | not ordered., Post-op/Phase II | | | | | | + +-------+ +-------+---+---+ +-------+ +-------+---+---+ | Given | 12/20/19 | 10 mg | | | | | 18 12:04 | | | | | | AM PDT | | | | +-------+ +-------+---+---+ | Given | 12/18/19 | 10 mg | | | | | 18 12:26 | | | | | | PM PDT | | | | +-------+ +-------+---+---+ + +---+ | | | + +---+ | dextrose 50% injection 12.5 g | | | 12.5 g, Intravenous, PRN, Low | | | Blood Sugar, Starting [facility] 12/15/17 | | | at 1627, Post-op/Phase II | | + +---+ | | | + +---+ | diphenhydrAMINE (BENADRYL) 12.5 | | | mg/5 mL liquid 25 mg 25 mg, | | | Oral, EVERY 4 HOURS PRN, Itching, | | | Starting [facility] 12/15/17 at 1627, | | | Oral route is preferred., | | | Post-op/Phase II | | + +---+ | | | + +---+ | diphenhydrAMINE (BENADRYL) | | | injection 12.5 mg 12.5 mg, | | | Intravenous, EVERY 4 HOURS PRN, | | | Itching, Starting [facility] 12/15/17 at | | | 1627, Oral route is preferred., | | | Post-op/Phase II | | + +---+ | | | + +---+ | diphenhydrAMINE (BENADRYL) | | | tablet 25 mg 25 mg, Oral, EVERY | | | 4 HOURS PRN, Itching, Starting | | | [facility] 12/15/17 at 1627, Oral route | | | is preferred., Post-op/Phase II | | + +---+ | | | + +---+ + +-------+ +--------+---+---+ | docusate sodium (COLACE) | Given | 12/20/19 | 100 mg | | | | capsule 100 mg 100 mg, Oral, 2 | | 18 8:27 | | | | | TIMES DAILY, First dose on Tue | | AM PDT | | | | | 12/15/17 at 2100, First line agent | | | | | | | for constipation, Post-op/Phase | | | | | | | II | | | | | | + +-------+ +--------+---+---+ +-------+ +--------+---+---+ | Given | 12/19/19 | 100 mg | | | | | 18 8:55 | | | | | | PM PDT | | | | +-------+ +--------+---+---+ | Given | 12/19/19 | 100 mg | | | | | 18 8:13 | | | | | | AM PDT | | | | +-------+ +--------+---+---+ +---+---+ | | | +---+---+ + +-------+ +-------+---+---+ | DULoxetine (CYMBALTA) DR | Given | 12/20/19 | 60 mg | | | | capsule 60 mg 60 mg, Oral, | | 18 8:27 | | | | | DAILY, First dose on [facility] 12/15/17 | | AM PDT | | | | | at 1645, Do not open capsule., | | | | | | | Post-op/Phase II | | | | | | + +-------+ +-------+---+---+ +-------+ +-------+---+---+ | Given | 12/19/19 | 60 mg | | | | | 18 8:17 | | | | | | AM PDT | | | | +-------+ +-------+---+---+ | Given | 12/18/19 | 60 mg | | | | | 18 8:46 | | | | | | AM PDT | | | | +-------+ +-------+---+---+ +---+---+ | | | +---+---+ + +-------+ +-------+---+ + | enoxaparin (LOVENOX) 40 mg/0.4 | Given | 12/19/19 | 40 mg | | Abdomen- | | mL injection 40 mg 40 mg, | | 18 8:55 | | | LLQ | | Subcutaneous, NIGHTLY, First dose | | PM PDT | | | | | on [place] 12/18/17 at 2100 | | | | | | + +-------+ +-------+---+ + +---+---+ | | | +---+---+ + +-------+ +--------+---+---+ | gabapentin (NEURONTIN) capsule | Given | 12/16/19 | 600 mg | | | | 600 mg 600 mg, Oral, ONCE, Tue | | 18 6:50 | | | | | 12/15/17 at 0700, For 1 dose, | | AM PDT | | | | | Pre-op | | | | | | + +-------+ +--------+---+---+ +---+---+ | | | +---+---+ + +-------+ +--------+---+---+ | gabapentin (NEURONTIN) capsule | Given | 12/20/19 | 300 mg | | | | 600 mg 600 mg, Oral, 3 TIMES | | 18 2:01 | | | | | DAILY, First dose on Tue12/15/17 | | PM PDT | | | | | at 1645, Post-op/Phase II | | | | | | + +-------+ +--------+---+---+ +-------+ +--------+---+---+ | Given | 12/20/19 | 300 mg | | | | | 18 8:27 | | | | | | AM PDT | | | | +-------+ +--------+---+---+ | Given | 12/19/19 | 300 mg | | | | | 18 8:55 | | | | | | PM PDT | | | | +-------+ +--------+---+---+ +---+---+ | | | +---+---+ + +-------+ +---------+---+---+ | hydroCHLOROthiazide tablet 12.5 | Given | 12/20/19 | 12.5 mg | | | | mg 12.5 mg, Oral, DAILY, First | | 18 8:27 | | | | | dose on [facility] 12/15/17 at 1645, | | AM PDT | | | | | Post-op/Phase II | | | | | | + +-------+ +---------+---+---+ +-------+ +---------+---+---+ | Given | 12/19/19 | 12.5 mg | | | | | 18 8:13 | | | | | | AM PDT | | | | +-------+ +---------+---+---+ | Given | 12/18/19 | 12.5 mg | | | | | 18 8:48 | | | | | | AM PDT | | | | +-------+ +---------+---+---+ +---+---+ | | | +---+---+ + +-------+ +--------+---+---+ | HYDROmorphone (DILAUDID) | Given | 12/16/19 | 0.5 mg | | | | injection 0.2-0.5 mg 0.2-0.5 mg, | | 18 2:52 | | | | | Intravenous, EVERY 5 MIN PRN, | | PM PDT | | | | | Pain, Starting [facility] 12/15/17 at | | | | | | | 1344, Maximum total dose 4 mg. | | | | | | | PACU IV Narcotic Priority: Only | | | | | | | use fentanyl for immediate | | | | | | | post-op pain (one dose) or | | | | | | | breakthrough pain when any other | | | | | | | IV narcotics ordered have been | | | | | | | ineffective (if ordered). If | | | | | | | both morphine and hydromorphone | | | | | | | are ordered, use morphine first, | | | | | | | and use hydromorphone if morphine | | | | | | | ineffective., Recovery/Phase I | | | | | | + +-------+ +--------+---+---+ +-------+ +--------+---+---+ | Given | 12/16/19 | 0.5 mg | | | | | 18 2:29 | | | | | | PM PDT | | | | +-------+ +--------+---+---+ | Given | 12/16/19 | 0.5 mg | | | | | 18 2:15 | | | | | | PM PDT | | | | +-------+ +--------+---+---+ +---+---+ | | | +---+---+ + +-------+ + +---+ + | insulin glargine (LANTUS | Given | 12/20/19 | 80 Units | | Abdomen- | | SOLOSTAR) 100 units/mL injection | | 18 8:30 | | | LLQ | | (pen) 80 Units 80 Units, | | AM PDT | | | | | Subcutaneous, EVERY 12 HOURS (2 | | | | | | | times per day), First dose on [facility] | | | | | | | 12/15/17 at 2100, For | | | | | | | subcutaneous use only. Basal | | | | | | | (long acting) insulin., | | | | | | | Post-op/Phase II | | | | | | + +-------+ + +---+ + +-------+ + +---+ + | Given | 12/19/19 | 80 Units | | Abdomen- | | | 18 8:57 | | | LLQ | | | PM PDT | | | | +-------+ + +---+ + | Given | 12/19/19 | 80 Units | | Arm-Righ | | | 18 8:19 | | | t Upper | | | AM PDT | | | | +-------+ + +---+ + +---+---+ | | | +---+---+ + +-------+ +---------+---+ + | insulin lispro (humaLOG | Given | 12/19/19 | 3 Units | | Arm-Left | | KWIKPEN) 100 units/mL injection | | 18 8:56 | | | Upper | | (pen) 0-18 Units 0-18 Units, | | PM PDT | | | | | Subcutaneous, 4 TIMES DAILY WITH | | | | | | | MEALS & NIGHTLY, First dose on | | | | | | | [facility] 12/15/17 at 1700, CORRECTION | | | | | | | SCALE: Blood Glucose (BG) < | | | | | | | 150: None BG | | | | | | | 150-200: DAY: 3 units. NIGHT: | | | | | | | 0 units BG 201-250: DAY: 6 | | | | | | | units. NIGHT: 3 units BG | | | | | | | 251-300: DAY: 9 units. NIGHT: | | | | | | | 6 units BG 301-350: DAY: 12 | | | | | | | units. NIGHT: 9 units BG | | | | | | | 351-400: DAY: 15 units. NIGHT: | | | | | | | 12 units BG > 400 : DAY: 18 | | | | | | | units. NIGHT: 15 units | | | | | | | AND CALL PROVIDER | | | | | | | Use DAY DOSE for doses | | | | | | | scheduled: AC, NPO, Daytime | | | | | | | [phone] Use NIGHT DOSE for | | | | | | | doses scheduled: HS, 3AM, | | | | | | | Nighttime [id number], | | | | | | | Post-op/Phase II | | | | | | + +-------+ +---------+---+ + +-------+ +---------+---+ + | Given | 12/19/19 | 6 Units | | Arm-Left | | | 18 12:11 | | | Upper | | | PM PDT | | | | +-------+ +---------+---+ + | Given | 12/18/19 | 3 Units | | Arm-Left | | | 18 5:55 | | | Upper | | | PM PDT | | | | +-------+ +---------+---+ + +---+---+ | | | +---+---+ + +-------+ +---------+---+ + | insulin regular (humuLIN R, | Given | 12/16/19 | 5 Units | | Abdomen- | | novoLIN R) injection 5 Units 5 | | 18 1:49 | | | RLQ | | Units, Subcutaneous, ONCE, [facility] | | PM PDT | | | | | 12/15/17 at 1415, For 1 dose, Only | | | | | | | for use with U-100 insulin | | | | | | | syringe., Recovery/Phase I | | | | | | + +-------+ +---------+---+ + +---+---+ | | | +---+---+ + + + +---+ +---+ | lactated ringers (LR) infusion | Rate/Dos | 12/17/19 | | 50 mL/hr | | | at 100 mL/hr, Intravenous, | e Change | 18 7:40 | | | | | CONTINUOUS, Starting [facility] 12/15/17 | | AM PDT | | | | | at 0700 | | | | | | + + + +---+ +---+ +---------+ +---------+ +---+ | New Bag | 12/17/19 | | 50 mL/hr | | | | 18 12:14 | | | | | | AM PDT | | | | +---------+ +---------+ +---+ | New Bag | 12/16/19 | 500 mLs | 100 | | | | 18 4:42 | | mL/hr | | | | PM PDT | | | | +---------+ +---------+ +---+ +---+---+ | | | +---+---+ + +-------+ +--------+---+---+ | lactulose liquid 30 mL 30 mL, | Given | 12/19/19 | 30 mLs | | | | Oral, 2 TIMES DAILY, First dose | | 18 8:18 | | | | | on [facility] 12/15/17 at 2100, | | AM PDT | | | | | Post-op/Phase II | | | | | | + +-------+ +--------+---+---+ +-------+ +--------+---+---+ | Given | 12/16/19 | 30 mLs | | | | | 18 8:46 | | | | | | PM PDT | | | | +-------+ +--------+---+---+ +---+---+ | | | +---+---+ + +-------+ +-------+---+---+ | losartan (COZAAR) tablet 50 mg | Given | 12/20/19 | 50 mg | | | | 50 mg, Oral, DAILY, First dose | | 18 8:28 | | | | | on [facility] 12/15/17 at 1645, | | AM PDT | | | | | Post-op/Phase II | | | | | | + +-------+ +-------+---+---+ +-------+ +-------+---+---+ | Given | 12/19/19 | 50 mg | | | | | 18 8:17 | | | | | | AM PDT | | | | +-------+ +-------+---+---+ | Given | 12/18/19 | 50 mg | | | | | 18 8:47 | | | | | | AM PDT | | | | +-------+ +-------+---+---+ +---+---+ | | | +---+---+ + +---------+ + +--------+---+ | methocarbamol (ROBAXIN) 1,000 | New Bag | 12/16/19 | 1,000 mg | 146.7 | | | mg in sodium chloride 0.9% 100 mL | | 18 5:25 | | mL/hr | | | IVPB 1,000 mg, Intravenous, | | PM PDT | | | | | Administer over 45 Minutes, ONCE, | | | | | | | [facility] 12/15/17 at 1645, For 1 dose, | | | | | | | Post-op/Phase II | | | | | | + +---------+ + +--------+---+ +---+---+ | | | +---+---+ + +-------+ +------+---+---+ | ondansetron (ZOFRAN ODT) | Given | 12/16/19 | 8 mg | | | | disintegrating tablet 8 mg 8 mg, | | 18 6:50 | | | | | Oral, ONCE, [facility] 12/15/17 at 0700, | | AM PDT | | | | | For 1 dose, Pre-op | | | | | | + +-------+ +------+---+---+ +---+---+ | | | +---+---+ + +-------+ +-------+---+---+ | oxyCODONE (ROXICODONE) tablet | Given | 12/20/19 | 20 mg | | | | 5-20 mg 5-20 mg, Oral, EVERY 4 | | 18 2:00 | | | | | HOURS PRN, Pain, Starting [facility] | | PM PDT | | | | | 12/15/17 at 1627, Post-op/Phase II | | | | | | + +-------+ +-------+---+---+ +-------+ +-------+---+---+ | Given | 12/20/19 | 20 mg | | | | | 18 10:17 | | | | | | AM PDT | | | | +-------+ +-------+---+---+ | Given | 12/20/19 | 15 mg | | | | | 18 6:43 | | | | | | AM PDT | | | | +-------+ +-------+---+---+ +---+---+ | | | +---+---+ + +-------+ +------+---+---+ | polyethylene glycol (MIRALAX) | Given | 12/20/19 | 17 g | | | | powder 17 g 17 g, Oral, DAILY, | | 18 8:28 | | | | | First dose on [facility] 12/15/17 at | | AM PDT | | | | | 1645, If docusate and senna | | | | | | | ineffective or not ordered, | | | | | | | Post-op/Phase II | | | | | | + +-------+ +------+---+---+ +-------+ +------+---+---+ | Given | 12/19/19 | 17 g | | | | | 18 8:18 | | | | | | AM PDT | | | | +-------+ +------+---+---+ | Given | 12/16/19 | 17 g | | | | | 18 5:27 | | | | | | PM PDT | | | | +-------+ +------+---+---+ +---+---+ | | | +---+---+ + +-------+ +--------+---+---+ | potassium chloride (KLOR-CON) | Given | 12/20/19 | 10 mEq | | | | ER tablet 10 mEq 10 mEq, Oral, | | 18 8:27 | | | | | DAILY, First dose on Tue12/15/17 | | AM PDT | | | | | at 1645, May take with food to | | | | | | | decrease GI upset., Post-op/Phase | | | | | | | II | | | | | | + +-------+ +--------+---+---+ +-------+ +--------+---+---+ | Given | 12/19/19 | 10 mEq | | | | | 18 8:17 | | | | | | AM PDT | | | | +-------+ +--------+---+---+ | Given | 12/18/19 | 10 mEq | | | | | 18 8:47 | | | | | | AM PDT | | | | +-------+ +--------+---+---+ +---+---+ | | | +---+---+ documented in this encounter
--- OUTSIDE RECORDS SUMMARY | ~2020-02-04 | XMS | Clinical Summary ---
Demographics + + + | Address | [address] | | | [place] [address] | + + + | Home Phone | | + + + | Preferred Language | Unknown | + + + | Marital Status | | + + + | Buddhism Affiliation | CHR | + + + | Race | White | + + + | Ethnic Group | Not or | + + + Author + + + | Author | [facility] | + + + | Organization | [facility] | + + + | Address | Unknown | + + + | Phone | Unavailable | + + + Support + + +---------+ + | Name | Relationship | Address | Phone | + + +---------+ + | Leslie Lentz | ECON | Unknown | | + + +---------+ + Care Team Providers + +------+ + | Care Sales Program Manager Name | Role | Phone | + +------+ + | Dunn Aggie PARI MUTUEL TICKET SELLER | PCP | | + +------+ + Source Comments [facility] is fully live on both [facility] Ambulatory and [facility] InPatient.[facility] Allergies + + + + + + | Active Allergy | Reactions | Severity | Noted | Comments | | | | | Date | | + + + + + + | Codeine | Rash | Medium | 02/16/20 | "makes my skin | | | | | 16 | crawl" | + + + + + + | Morphine | Angioedema | High | 12/07/19 | | | | | | 20 | | + + + + + + Medications + + + +---------+------+------+-------+ | Medication | Sig | Dispensed | Refills | Star | End | Statu | | | | | | t | Date | s | | | | | | Date | | | + + + +---------+------+------+-------+ | traMADol 50 mg | | | 0 | 10/1 | | Activ | | oral tablet | | | | 2/20 | | e | | | | | | 16 | | | + + + +---------+------+------+-------+ | | take 1-2 tablets by | | 0 | 09/3 | | Activ | | HYDROcodone-acetamin | mouth every 8 hours | | | 0/20 | | e | | ophen 10-325 mg oral | if needed for pain | | | 16 | | | | tablet | | | | | | | + + + +---------+------+------+-------+ | ibuprofen 600 mg | | | 0 | 10/0 | | Activ | | oral tablet | | | | 08/12 | | e | | | | | | 16 | | | + + + +---------+------+------+-------+ | cyclobenzaprine 10 | take /2-1 tablet by | | 1 | 11/25 | | Activ | | mg oral tablet | mouth three times a | | | 0/20 | | e | | | day (DO NOT TAKE | | | 16 | | | | | WHILE WORKING OR | | | | | | | | DRIVING) | | | | | | + + + +---------+------+------+-------+ | DULoxetine 60 mg | | | 0 | 09/2 | | Activ | | oral capsule,delayed | | | | 01/12 | | e | | release(DR/EC) | | | | 16 | | | + + + +---------+------+------+-------+ | gabapentin 300 mg | | | 0 | 09/2 | | Activ | | oral capsule | | | | 01/12 | | e | | | | | | 16 | | | + + + +---------+------+------+-------+ | LEVEMIR 100 | | | 0 | 09/0 | | Activ | | unit/mL subcutaneous | | | | 1/20 | | e | | solution | | | | 16 | | | + + + +---------+------+------+-------+ | | | | 0 | 09/0 | | Activ | | irbesartan-hydrochlo | | | | 3/20 | | e | | rothiazide 150-12.5 | | | | 16 | | | | mg oral tablet | | | | | | | + + + +---------+------+------+-------+ | metFORMIN 1,000 mg | | | 0 | 09/2 | | Activ | | oral tablet | | | | 9/20 | | e | | | | | | 16 | | | + + + +---------+------+------+-------+ | cefPODOxime 200 mg | | | 0 | 10/1 | | Activ | | oral tablet | | | | 4/20 | | e | | | | | | 16 | | | + + + +---------+------+------+-------+ | | Take 1-2 tablets by | 20 | 0 | 08/1 | | Activ | | HYDROcodone-acetamin | mouth every four | tablet | | 4/20 | | e | | ophen 5-325 mg oral | hours as needed | | | 20 | | | | tablet | (moderate or severe | | | | | | | | pain). | | | | | | + + + +---------+------+------+-------+ | atropine 1 % | Instill 1 drop into | 5 mL | 11 | 08/1 | | Activ | | ophthalmic (eye) | the left eye two | | | 5/20 | | e | | drops | times daily. | | | 20 | | | + + + +---------+------+------+-------+ | prednisoLONE | Instill 1 drop into | 10 mL | 0 | 08/1 | | Activ | | acetate 1 % | the left eye four | | | 5/20 | | e | | ophthalmic (eye) | times daily. | | | 20 | | | | drops,suspension | | | | | | | + + + +---------+------+------+-------+ | dorzolamide | | | 0 | 11/24 | | Activ | | HCl-timolol maleate | | | | 0 | | e | | 22.3 mg-6.8 mg/ml | | | | 20 | | | | ophthalmic (eye) | | | | | | | | drops | | | | | | | + + + +---------+------+------+-------+ Active Problems + + + | Problem | Noted Date | + + + | Retinal detachment, left s/p PPV/SB/20% SF6 12/07/2019 | 12/06/2019 | + + + + + | Last Assessment & Plan: Post-operative day #1 s/p | | PPV/EL/Afx/SO OS 01/02/2020 (Flaxel/Aaron)- Patient doing well. | | Retina flat. IOP acceptable.- Start Pred forte 1 gtt qid, | | Ofloxacin 1 gtt qid, and Atropine 1 gtt bid in the operated eye.- | | Discussed with patient endophthalmitis/RD precautions and | | instructed patient to return to clinic sooner with | | signs/symptoms. 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 Ferguson - | | had single avastin injection and now has RRD OS - recommend | | surgery as above and plan PRP at same time | + + Encounters +--------+ + + + + | Date | Type | Specialty | Care Team | Description | +--------+ + + + + | 01/31/ | Telephone | Ophthalmology | Tammy Bagley, | Telephone follow-up | | 2019 | | | MD | (seen by Dr. Ferguson) | +--------+ + + + + | 01/24/ | Telephone | Ophthalmology | Tammy Bagley, | Telephone follow-up | | 2019 | | | MD | (01/17/20 visit with | | | | | | Dr. Ferguson) | +--------+ + + + + | 01/02/ | Office | Ophthalmology | Tammy Bagley, | Retinal detachment, | | 2019 | Visit | | MD | left s/p PPV/SB/20% | | | | | | SF6 12/07/2019 | +--------+ + + + + | 01/01/ | Surgery | Ophthalmology | Tammy Bagley, | PARS PLANA | | 2019 | | | MD | VITRECTOMY, ENDO | | | | | | LASER, SILICONE OIL, | | | | | | MEMBRANE PEEL, LEFT | | | | | | *23G* | +--------+ + + + + | 01/01/ | Anesthesia | Ophthalmology | Betty Acosta MD | | | 2019 | Event | | Vasiliy Reich | | | | | | [facility] | | +--------+ + + + + | 01/01/ | Hospital | Ophthalmology | Tammy Bagley, | | 2019 | Encounter | | | | +--------+ + + + + | 01/01/ | Pharmacy | | | | | 2019 | Visit | | | | +--------+ + + + + | 01/01/ | Travel | | | | | 2019 | | | | | +--------+ + + + + | 01/01/ | Procedure | Ophthalmology | | | | 2019 | Pass | | | | +--------+ + + + + | 12/31/ | Office | Ophthalmology | Tammy Bagley, | Retinal detachment, | | 2019 | Visit | | MD | nuha (Primary Dx) | +--------+ + + + + | 12/31/ | Orders Only | Ophthalmology | Tammy Bagley, | Retinal detachment, | | 2019 | | | MD | nuha | +--------+ + + + + | 12/18/ | Telephone | Ophthalmology | Tammy Bagley, | Telephone follow-up | | 2019 | | | MD | (message from | | | | | | Marty) | +--------+ + + + + | 12/13/ | Telephone | Ophthalmology | Tammy Bagley, | Telephone follow-up | | 2019 | | | MD | (message from | | | | | | Marty) | +--------+ + + + + | 12/07/ | Office | Ophthalmology | Zaria Walker | Retinal detachment, | | 2019 | Visit | | A, MD | left; Severe | | | | | | nonproliferative | | | | | | diabetic retinopathy | | | | | | of right eye, | | | | | | without macular | | | | | | edema, associated | | | | | | with type 2 diabetes | | | | | | mellitus (HCC) | +--------+ + + + + | 12/07/ | Travel | | | | | 2019 | | | | | +--------+ + + + + | 12/06/ | Anesthesia | Ophthalmology | Pito Laureano, | | | 2019 | Event | | MD Larissa Benitez | | | | | | [facility] | | +--------+ + + + + | 12/06/ | Surgery | Ophthalmology | Tammy Bagley, | 23G VITRECTOMY, ENDO | | 2019 | | | MD | LASER, SCLERAL | | | | | | BUCKLE, 20% SF6 GAS | | | | | | LEFT *23G* (HANY) | +--------+ + + + + | 12/06/ | Hospital | Ophthalmology | Tammy Bagley, | | | 2019 | Encounter | | | | +--------+ + + + + | 08/14/ | Pharmacy | | | | | 2020 | Visit | | | | +--------+ + + + + | 12/06/ | Procedure | Ophthalmology | | | | 2020 | Pass | | | | +--------+ + + + + | 12/05/ | Clinical | Pre-operative | | Covid19 Screening | | 2020 | Support | Medicine | | | | | Staff | | | | +--------+ + + + + | 12/05/ | Office | Ophthalmology | Tammy Bagley, | Severe | | 2020 | Visit | | MD | nonproliferative | | | | | | diabetic retinopathy | | | | | | of right eye, | | | | | | without macular | | | | | | edema, associated | | | | | | with type 2 diabetes | | | | | | mellitus (HCC) | | | | | | (Primary Dx); | | | | | | Retinal detachment, | | | | | | rhegmatogenous, left | | | | | | eye; Retinal | | | | | | detachment, left; | | | | | | Proliferative | | | | | | diabetic retinopathy | | | | | | of left eye without | | | | | | macular edema | | | | | | associated with type | | | | | | 2 diabetes mellitus | | | | | | (HCC) | +--------+ + + + + | 12/05/ | Travel | | | | | 2020 | | | | | +--------+ + + + + from Last 3 Months Family History + + +------+ + | Medical History | Relation | Name | Comments | + + +------+ + | Cancer | Father | | stomach | + + +------+ + | Heart Disease | Father | | | + + +------+ + | Diabetes | Mother | | | + + +------+ + | Heart Disease | Mother | | | + + +------+ + + +------+ + + | Relation | Name | Status | Comments | + +------+ + + | Father | | | | + +------+ + + | Mother | | | | + +------+ + + Social History + + + +--------+ + | Tobacco Use | Types | Packs/Day | Years | Date | | | | | Used | | + + + +--------+ + | Former Smoker | Cigarettes | 1 | | 1983 - 1998 | + + + +--------+ + + [...] on file | | + + + Last Filed Vital Signs + + + + + | Vital Sign | Reading | Time Taken | Comments | + + + + + | Blood Pressure | 112/71 | 01/02/2020 12:00 PM | | | | | PDT | | + + + + + | Pulse | 76 | 01/02/2020 12:00 PM | | | | | PDT | | + + + + + | Temperature | 36.7 C (98.1 F) | 01/02/2020 12:00 PM | | | | | PDT | | + + + + + | Respiratory Rate | 16 | 01/02/2020 12:00 PM | | | | | PDT | | + + + + + | Oxygen Saturation | 98% | 01/02/2020 12:00 PM | | | | | PDT | | + + + + + | Inhaled Oxygen | - | - | | | Concentration | | | | + + + + + | Weight | 122.5 kg (270 lb) | 01/02/2020 10:04 AM | | | | | PDT | | + + + + + | Height | 193 cm (6' 4") | 01/02/2020 10:04 AM | | | | | PDT | | + + + + + | Body Mass Index | 32.87 | 01/02/2020 10:04 AM | | | | | PDT | | + + + + + Plan of Treatment + + + + + | Health Maintenance | Due Date | Last | Comments | | | | Done | | + + + + + | Influenza (Flu) | | 03/13/20 | | | vaccination (#1) | 0 | 19, | | | | | 01/21/20 | | | | | 18, | | | | | 01/27/20 | | | | | 17, | | | | | Addition | | | | | al | | | | | history | | | | | exists | | + + + + + | Pneumococcal | Completed | 01/26/20 | | | vaccination | | 16, | | | | | 02/16/20 | | | | | 12 | | + + + + + Implants + +------+--------+ +--------+--------+--------+ | Implanted | Type | Area | Manufacture | Device | Shelf | Model | | | | | r | | Expira | / | | | | | | Identi | tion | Serial | | | | | | fier | Date | / Lot | + +------+--------+ +--------+--------+--------+ | Implant Retinal Sleeve 72 - | | Left: | LABTICIAN | | 03/24/ | [id number] | | [id number]: Qty: 1 on | | Eye | | | 2025 | / | | 12/07/2019 by Kevyn, | | | | | | /[id number] | | MD Tammy at [facility] | | | | | | | | INPATIENT REV LOC | | | | | | | + +------+--------+ +--------+--------+--------+ | Implant Retinal Strip 42 Flat | | Left: | LABTICIAN | | 03/24/ | [id number] | | Osd - [id number]: | | Eye | | | 2025 | / | | Qty: 1 on 12/07/2019 by | | | | | | /[id number] | | Tammy Bagley MD at [facility] | | | | | | | | INPATIENT REV LOC | | | | | | | + +------+--------+ +--------+--------+--------+ | Solution Ophthalmic Adato | | Left: | BAUSCH & | | 04/21/ | ES | | Constance-Ol 5000 Silicone Syringe | | Eye | LOMB | | 2021 | 5000 S | | Viscous Fluid Pack 10ml | | | SURGICAL | | | / | | [id number] - | | | | | | / | | [id number]: Qty: 1 on | | | | | | | | 01/02/2020 by Kevyn, | | | | | | | | MD Tammy at [facility] | | | | | | | | INPATIENT REV LOC | | | | | | | + +------+--------+ +--------+--------+--------+ Procedures + +--------+ + + + | Procedure Name | Priori | Date/Time | Associated Diagnosis | Comments | | | ty | | | | + +--------+ + + + | PROCEDURE NOTE | Routin | 01/02/2020 | | Results for this | | | e | 12:06 PM | | procedure are in the | | | | PDT | | results section. | + +--------+ + + + | CAPILLARY BLOOD | Routin | 01/02/2020 | Retinal | Results for this | | GLUCOSE (NO CHG), | e | 11:35 AM | detachment, left s/p | procedure are in the | | POC | | PDT | PPV/SB/20% SF6 | results section. | | | | | 12/07/2019 | | + +--------+ + + + | 23G VITRECTOMY WITH | | 01/02/2020 | H33.002 retinal | | | MEMBRANE PEEL | | 10:28 AM | detachment | | | | | PDT | | | + +--------+ + + + | CAPILLARY BLOOD | Routin | 01/02/2020 | Retinal | Results for this | | GLUCOSE (NO CHG), | e | 10:13 AM | detachment, left s/p | procedure are in the | | POC | | PDT | PPV/SB/20% SF6 | results section. | | | | | 12/07/2019 | | + +--------+ + + + | COVID-19, RAPID PCR | Urgent | 01/01/2020 | Retinal | Results for this | | | | 7:19 PM | detachment, left | procedure are [...] | + +--------+ + + + | COVID-19 | Urgent | 12/06/2019 | Encounter for | Results for this | | | | 11:33 AM | screening for other | procedure are in the | | | | PDT | viral diseases | results section. | + +--------+ + + + | FLUORESCEIN | Routin | 12/06/2019 | Retinal | Results for this | | ANGIOGRAPHY | e | 10:26 AM | detachment, | procedure are in the | | | | PDT | rhegmatogenous, left | results section. | | | | | eye Severe | | | | | | nonproliferative | | | | | | diabetic retinopathy | | | | | | of right eye, | | | | | | without macular | | | | | | edema, associated | | | | | | with type 2 diabetes | | | | | | mellitus (HCC) | | + +--------+ + + + | FUNDUS PHOTOS | Routin | 12/06/2019 | Retinal | Results for this | | | e | 10:18 AM | detachment, | procedure are in the | | | | PDT | rhegmatogenous, left | results section. | | | | | eye Severe | | | | | | nonproliferative | | | | | | diabetic retinopathy | | | | | | of right eye, | | | | | | without macular | | | | | | edema, associated | | | | | | with type 2 diabetes | | | | | | mellitus (HCC) | | + +--------+ + + + | B SCAN ULTRASOUND - | Routin | 12/06/2019 | Retinal | Results for this | | OS - LEFT EYE | e | 10:14 AM | detachment, | procedure are in the | | | | PDT | rhegmatogenous, left | results section. | | | | | eye | | + +--------+ + + + | OCT, RETINA | Routin | 12/06/2019 | Severe | Results for this | | | e | 10:03 AM | nonproliferative | procedure are in the | | | | PDT | diabetic retinopathy | results section. | | | | | of right eye, | | | | | | without macular | | | | | | edema, associated | | | | | | with type 2 diabetes | | | | | | mellitus (HCC) | | + +--------+ + + + from Last 3 Months Results PROCEDURE NOTE (01/02/2020 12:06 PM PDT)CAPILLARY BLOOD GLUCOSE (NO CHG), POC (01/02/2020 1 1:35 AM PDT)Only the most recent of 7 results within the time period is included. + +-------+ + + + | Component | Value | Ref Range | Performed | Pathologist | | | | | At | Signature | + +-------+ + + + | BLOOD | 81 | 70 - 99 mg/dL | [facility] [...] [facility] | [address] | [place], [place] | | | [facility] | [address] | [address] | | | TESTS | | | | + + + + + COVID-19, RAPID PCR (01/01/2020 7:19 PM PDT) + + + + + + | Component | Value | Ref Range | Performed | Pathologist | | | | | At | Signature | + + + + + + | COVID-19, | Not Detected | Not Detected | [facility] | | | PCR | | | LABORATORY | | | | | | SERVICES, | | | | | | CORE | | + + + + + + + + | Specimen | + + | Swab - Nasopharynx | + + + + + | Narrative | Performed At | + + + | Not Detected results do not preclude SARS-CoV-2 infection and should | [facility] | | not be used as the sole basis for treatment or other patient | LABORATORY | | management decisions. Not Detected results must be combined with | SERVICES, CORE | | clinical observations, patient history, and epidemiological | | | information. Performance of the Xpert Xpress SARS-CoV-2 has only | | | been established in nasopharyngeal swab and nasal wash specimens. | | | Specimen types other than nasopharyngeal swab and nasal wash may | | | give inaccurate results. Fact sheet for patients: | | | https://www.[place].gov/media/520220/download | | + + + + + + + + | Performing | Address | City/State/Zipcode | Phone Number | | Organization | | | | + + + + + | [facility] | [address] | [place] [address] | | | SERVICES, [place] | [address] | | | + + + + + PROCEDURE NOTE (12/07/2019 7:45 PM PDT)COVID-19, PCR (12/06/2019 11:33 AM PDT) + + + + + + | Component | Value | Ref Range | Performed | Pathologist | | | | | At | Signature | + + + + + + | COVID-19, | Not Detected | Not Detected | [facility] | | | PCR | | | MOLECULAR | | | | | | MICROBIOLIG | | | | | | Y LAB | | + + + + + + + + | Specimen | + + | Swab - Nasopharynx | + + + + + | Narrative | Performed At | + + + | Not Detected results do not preclude SARS-CoV-2 infection and should | [facility] | | not be used as the sole basis for treatment or other patient | MOLECULAR | | management decisions. Not Detected results must be combined with | MICROBIOLIGY | | clinical observations, patient history, and epidemiological | LAB | | information. Analyte specific reagents are used in many laboratory | | | tests necessary for standard medical care. This test was developed and | | | its performance characteristics determined by [facility]. It | | | has not been cleared or approved by the US Food and Drug | | | Administration (FDA). FDA does not require this test to go through | | | premarket FDA review. This test is used for clinical purposes. It | | | should not be regarded as investigational or for research. The | | | laboratory is certified under the Clinical Laboratory Improvement | | | Amendments (CLIA) as qualified to perform high complexity clinical | | | laboratory testing. | | + + + + + + + + | Performing | Address | City/State/Zipcode | Phone Number | | Organization | | | | + + + + + | [facility] | [address] | [place] [address] | | | MICROBIOLOGY LAB | [address] | | | + + + + + | [facility] | [address] | [place], [place] | | | MICRO[facility]OLIGY LAB | [address] | [id number], | | + + + + + FLUORESCEIN ANGIOGRAPHY (12/06/2019 10:26 AM PDT) + + + | Narrative | Performed At | + + + | [facility] | [facility] | | DocumentationConsent: Informed consent obtained IV Inejction: 5cc of | [facility] | | 10% fluoroscein sodium injected, antecubital Right EyeQuality: | | | good Type: Optos Left EyeQuality: poor media Type: Optos | | | Provider DocumentationRight EyeTransit: normal transit time | | | Additional Findings: capillary drop out, NVE Left | | | EyeInterprepatation: (Difficult view OS due to RD and vit heme no | | | detail) NotesLot#: [id number] | | | | | | | | |Left Eye | | |Quality: poor media | | |Type: Optos | | | | | | | | |Provider Documentation | | |Right Eye | | |Transit: normal transit time | | |Additional Findings: capillary drop out, NVE | | | | | | | | | | | |Left Eye | | |Interprepatation: (Difficult view OS due to RD and vit heme no detail) | | | | | | | | |Notes | | |Lot#: [id number] | | + + + + + + + + | Performing | Address | City/State/Zipcode | Phone Number | | Organization | | | | + + + + + | [facility] | [address] | [place] [address] | | | INSTITUTE | [address] | | | + + + + + FUNDUS PHOTOS (12/06/2019 10:18 AM PDT) + + + | Narrative | Performed At | + + + | [facility] | [facility] | | DocumentationType was Optos. NotesRight Eye:Disc: Normal, no NVD | [facility] | | o.2Macula: DBH and MAs throughout mostly temporally, no edema, no | | | exudates Vessels: venous beading, LORNA v NVE along inferior arcade | | | Periphery: 4/4q of DBH, LORNA v NVE along inf arcade, scattered Mas, | | | no NVE in periphery Left Eye: Disc: no view Macula: no view | | | Vessels: no viewPeriphery: bullous superior RD, otherwise view | | | obscured | | |Periphery: 4/4q of DBH, LORNA v NVE along inf arcade, scattered Mas, no | | |NVE in periphery | | | | | |Left Eye: | | |Disc: no view | | |Macula: no view | | |Vessels: no view | | |Periphery: bullous superior RD, otherwise view obscured | | | | | + + + + + + + + | Performing | Address | City/State/Zipcode | Phone Number | | Organization | | | | + + + + + | [facility] | [address] | [place] [address] | | | INSTITUTE | [facility]. | | | + + + + + B SCAN ULTRASOUND - OS - LEFT EYE (12/06/2019 10:14 AM PDT) + + -+ | Narrative | Performed At | + + -+ | B-scan OS | [facility] | | Indications: Retinal detachment, rhegmatogenous, left eye Procedure: | [facility] | | The patient was positioned supine in the exam chair and 0.5% | | | proparacaine was administered to the left eye. A 12 MHz transducer was | | | used to perform contact B-scan of the left eye. Findings:Anterior | | | chamber: Formed and clear Lens: Pseudophakic Vitreous: Dense | | | opacities, incomplete PVD with vitreoretinal adhesions at 4:30 and | | | 7:30. Retina: Shallow subretinal fluid 360 degrees. Choroid: Shallow | | | choroidal effusions 360 degrees. Sclera: unremarkable Optic nerve: | | | unremarkable Orbit: orbital tissues and extraocular muscles appear | | | within normal limits Impression: Dense vitreous opacities, | | | incomplete PVD with vitreoretinal adhesions seen at 4:30 and 7:30 no | | | clear breaks are seen. Shallow subretinal fluid seen 360 degrees to | | | include the macula. Shallow anterior choroidal effusions seen 360 | | | degrees. Limitations: none Kenyon NAVARRO I have reviewed | | | the images and the initial report and I have made any necessary | | | changes to the report as needed based on my assessment. LIBIA | | | [facility] | | |Choroid: Shallow choroidal effusions 360 degrees. | | | | | |Sclera: unremarkable | | | | | |Optic nerve: unremarkable | | | | | |Orbit: orbital tissues and extraocular muscles appear within normal limits | | | | | | | | |Impression: Dense vitreous opacities, incomplete PVD with vitreoretinal | | |adhesions seen at 4:30 and 7:30 no clear breaks are seen. Shallow | | |subretinal fluid seen 360 degrees to include the macula. Shallow anterior | | |choroidal effusions seen 360 degrees. | | | | | |Limitations: none | | | | | |Kenyon NAVARRO | | | | | | | | |I have reviewed the images and the initial report and I have made any | | |necessary changes to the report as needed based on my assessment. | | |LIBIA URENA MD | | | | | + + -+ + + + + + | Performing | Address | City/State/Zipcode | Phone Number | | Organization | | | | + + + + + | [facility] | [address] | [place] [address] | | | INSTITUTE | [place]. | | | + + + + + OCT, RETINA (12/06/2019 10:03 AM PDT) + + + | Narrative | Performed At | + + + | [facility] | [facility] | | DocumentationRight EyeQuality: good Central macular thickness: | [facility] | | 284 Segmentation: accurate Provider DocumentationRight EyeFluid | | | and related findings: no fluid Left EyeFluid and related | | | findings: SRF | | |Segmentation: accurate | | | | | | | | |Provider Documentation | | |Right Eye | | |Fluid and related findings: no fluid | | | | | | | | |Left Eye | | |Fluid and related findings: SRF | | + + + + + + + + | Performing | Address | City/State/Zipcode | Phone Number | | Organization | | | | + + + + + | [facility] | [address] | [place] [address] | | | MORE | [place]. | | | + + + + + from Last 3 Months Insurance + +--------+ +--------+ + +--------+ | Payer | Benefi | Subscriber | Effect | Phone | Address | Type | | | t Plan | ID | vonda | | | | | | / | | Dates | | | | | | Group | | | | | | + +--------+ +--------+ + +--------+ | MEDICARE | MEDICA | [id number] | 08/24/19 | [phone] | [address] | [employer] | | | RE A & | | 07-Pre | 1 | [phone] | [address] | | | B | | sent | | [place] | | | | | | | | [phone] | | + +--------+ +--------+ + +--------+ | [employer]ICA | TRANSA | [id number] | Effect | [phone] | [address] | POS | | MEDICARE SUPPLEMENT | MERICA | | [id number] | 2 | [address] | | | | | | for | | [place], [place] | | | | MEDICA | | all | | [id number] | | | | RE | | dates | | | | | | SUPPLE | | | | | | | | MENT | | | | | | + +--------+ +--------+ + +--------+ + +--------+ +--------+ + + | Guarantor Name | Accoun | Relation to | Date | Phone | Billing Address | | | t Type | Patient | of | | | | | | | | | | + +--------+ +--------+ + + | Carlos Mustafa | Person | Self | [birth year] | [address] | | | al/Fam | | [phone] | [phone] | [place] [address] | | | rajni | | | 0 (Home) | | | | | | | [phone] | | | | | | | 1 (Work) | | + +--------+ +--------+ + + Advance Directives + + + + + | Code Status | Date | Date | Comments | | | Activated | Inactivated | | + + + + + | Full Code | 01/02/2020 | 01/02/2020 | | | | 10:04 AM | 6:08 PM | | + + + + + + + + +---+ | | | | | + + + +---+ | Full Code | 12/07/2019 | 12/08/2019 | | | | 2:12 PM | 2:15 AM | | + + + +---+
--- OUTSIDE RECORDS SUMMARY | ~2020-02-04 | XMS | Encounter Summary ---
Demographics + + + | Address | [address] | | | [place] [address] | + + + | Home Phone | | + + + | Preferred Language | Unknown | + + + | Marital Status | | + + + | Buddhist Affiliation | 1013 | + + + | Race | White | + + + | Ethnic Group | Not or | + + + Author + + + | Author | [facility] | | | and [place] | + + + | Organization | [facility] | | | and [...] [place] | | | | | [address] | | + + + + + | Leslie Lentz | ECON | Unknown | | + + + + + Care Team Providers + +------+ + | Care Deputy Sheriff Civil Division Name | Role | Phone | + +------+ + | Aggie Dunn NP | PCP | | + +------+ + Reason for Visit + + + | Reason | Comments | + + + | Follow-up | Wound check | + + + Encounter Details +--------+---------+ + + + | Date | Type | Department | Care Team | Description | +--------+---------+ + + + | 01/25/ | Office | [facility] [place] | Kai Gillespie MD | S/P lumbar fusion | | 2018 | Visit | NEUROSURGERY [address] | [address] | (Primary Dx); | | | | [facility] [address] | [place] [address] | Encounter for post | | | | [place] | [phone] | surgical wound check | | | | [address] | | | | | | [phone] | Sonia Garza | | | | | | JOSUE Conroy [address] | | | | | | [facility] | | | | | | [address] [place] | | | | | | [address] | | | | | | | | +--------+---------+ + + + [...] + + + | Blood Pressure | 137/99 | 01/25/2018 1:12 PM | | | | | PDT | | + + + + + | Pulse | 94 | 01/25/2018 1:12 PM | | | | | PDT | | + + + + + | Temperature | - | - | | + + + + + | Respiratory Rate | 16 | 01/25/2018 1:12 PM | | | | | PDT | | + + + + + | Oxygen Saturation | - | - | | + + + + + | Inhaled Oxygen | - | - | | | Concentration | | | | + + + + + | Weight | 127 kg (280 lb) | 01/25/2018 1:12 PM | | | | | PDT | | + + + + + | Height | 193 cm (6' 4") | 01/25/2018 1:12 PM | | | | | PDT | | + + + + + | Body Mass Index | 34.08 | 01/25/2018 1:12 PM | | | | | PDT [...] documented as of this encounter Progress Notes Franchesca Quintero, Assistant Professor In Family Studies - 01/25/2018 12:30 PM PDT Kai Gillespie MD [address] [place] [address], [address] [place], [place] [address] FAX: [phone] NEUROSURGERY FOLLOW-UP CHIEF COMPLAINT: Chief Complaint Patient presents with Follow-up Wound check HISTORY OF PRESENT ILLNESS: The patient is a 57 y.o. male that had a lumbar fusion for raheem k and leg pain on 12/15/2017. He returns and overall is doing okay. His PCP is following his kidney function closely. The patient recently saw Dr. Claudio at [facility]. The patient states his pain severity has decreased since pre operative. His pain level with pain medication is a 5/10. He is slowly seeing overall progress. The patient has been walking as much as directed. He is still taking pain medications at this point. The patient has had some issues with his surgical site. He was readmitted after initial surgical discharge for posterior seroma aspiration and a small area of anterior wou nd dehiscence. He has been on a PICC line with out patient vancomycin BID since then. CURRENT MEDICATIONS: Current Outpatient Prescriptions Medication Sig Dispense Refill acetaminophen (TYLENOL) 500 mg tablet Take 500-1,000 mg by mouth every 8 hours as neede d for Pain or Fever. aspirin 81 mg EC tablet Take 81 mg by mouth Daily. atorvaSTATin (LIPITOR) 40 mg tablet Take 40 mg by mouth. cholecalciferol (VITAMIN D-3) 2000 units TABS Take 2,000 Units by mouth Daily. cyclobenzaprine (FLEXERIL) 10 mg tablet Take 0.5-1 tablets by mouth 3 times daily as ne eded for Muscle spasms. 90 tablet 2 DULoxetine (CYMBALTA) [address] capsule Take 60 mg by mouth Daily. 0 gabapentin (NEURONTIN) 300 mg capsule Take 1 capsule by mouth 3 times daily. 90 capsule 1 glucagon (GLUCAGON EMERGENCY) 1 MG injection Inject 1 mg into the muscle as needed (for blood sugar less than 60 and unresponsive). insulin detemir (LEVEMIR) 100 units/mL injection (vial) [...] units 351-400= 15 units 401-999= 18 units lactulose 10 g/15 mL solution Take 30 mLs by mouth 2 times daily. For constipation 240 mL 2 losartan-hydrochlorothiazide (HYZAAR) 50-12.5 MG per tablet Take 1 tablet by mouth Tim y. magnesium, as oxide, 250 MG tablet Take 250 mg by mouth Daily. metFORMIN (GLUCOPHAGE) 1000 MG tablet Take 1,000 mg by mouth 2 times daily (with breakf ast & dinner). oxyCODONE 10 MG TABS Take 1-1.5 tablets by mouth every 4 hours as needed for Pain. EXEM PT 120 tablet 0 potassium 99 mg tablet Take 99 mg [...] reports that he does not use drugs. INTERIM PHYSICAL EXAMINATION: Blood pressure (!) 137/99, pulse 94, resp. rate 16, height 1.93 m (6' 4"), weight 127 kg (2 80 lb). Body mass index is 34.08 kg/m. REVIEW OF SYSTEMS: GENERALLY: No fever, + night sweats, no anemia, no fatigue, no recent profound weight jeff nges. EYES: No eye problems, no impaired sight, + use of corrective lenses, no eye injury, no do uble vision, no transient blindness. EARS, NOSE, AND THROAT: No changes in taste or smell, no hearing difficulty, no ringing in the ears, no ear drainage, no ear injury, no dizziness, no voice changes, no difficulty swa llowing, no significant snoring, + sleep apnea/CPAP, no sinus problems, no major dental work . NEUROLOGICALLY: Please see the review of systems discussed above in the history of present illness. In addition, the patient has back injury, pain in back. PSYCHIATRIC: No depression, no difficulty sleeping, no [...] with unlabored respirations. SPINE: The patient s Incisions continue to be addressed by wound care. Posterior dehisce nce is stable with continued mild drainage. No signs of infection in the posterior or anter ior wounds. Closure of the wound has improved since last evaluation. EXTREMITIES: No lower extremity edema. NEUROLOGICAL EXAMINATION: MENTAL STATUS: The patient is awake, alert, and oriented. He follows simple and complex commands MOTOR EXAM: Motor strength is 5/5. This is improved when compared to the preoperative exam . SENSORY EXAM: The sensory examination is unchanged when compared to the preoperative exam. RADIOGRAPHIC REVIEW: The patient s x-rays are not available for today's visit. ASSESSMENT: Encounter Diagnoses Name Primary? S/P lumbar fusion Yes Encounter for post surgical wound check Past Medical History: Diagnosis Date Anxiety Depression [...] Some of the preoperative symptoms are improved. He is compliant with outpatient infusion of vancomycin twice a day with wound care twice a day for wound dehiscence. Today's evaluation shows impoved posterior wound healing with imp roving anterior dehiscence. There is no sign of infection or need for culture and sensitivi ty today. We discussed increasing the patient s activities now allowing 15 pound lifting. The leslie ent will begin the process of brace weaning as directed. They should continue regular exerc ise and strengthening with the hope that they can avoid additional surgery. We discussed that we can provide pain medications for up to 90 days after their surgical da te. We discussed the need to continue tapering pain medication. If they need longer term p ain medication, they should begin working on either pain management or with the primary care provider. He requested hydrocodone to taper off his oxycodone. We would like to recheck his wound in 2 weeks and get x-rays at that visit. He should cont act us if his symptoms worsen or has trouble with his lumbar incision. I, Sonia Garza PA-C, personally performed the services described in this document ation, as scribed by SHEA Acevedo in my presence, and it is both accurate and complete . ELECTRONICALLY SIGNED BY: Kai Gillespie MD, 01/25/2018 13:17 documented in this encounter Plan of Treatment Not on filedocumented as of this encounter Procedures + +--------+ + + + | Procedure Name | Priori | Date/Time | Associated Diagnosis | Comments | | | ty | | | | + +--------+ + + + | LABS - EXTERNAL SCAN | | 01/16/2018 | | Results for this | | | | 12:00 AM | | procedure are in the | | | | PDT | | results section. | + +--------+ + + + | LABS - EXTERNAL SCAN | | 01/09/2018 | | Results for this | | | | 12:00 AM | | procedure are in the | | | | PDT | | results section. | + +--------+ + + + documented in this encounter Results XR Lumbar Spine 2 or 3 Vw (02/07/2018 1:46 PM PDT) + + | Specimen | + + | | + + + + + | Narrative | Performed At | + + + | CLINICAL INFORMATION: Postoperative. COMPARISON: 01/31/2018. | [facility] | | FINDINGS: AP and lateral views of the lumbosacral spine. | | | Posterior pedicle screw and haylee fusion changes at L4 through the | | | iliac bones with stable positioning of the interbody graft markers. | | | Additional interbody graft spacer at L3-L4. Anterior screw and | | | plate hardware at L5-S1. No evidence of hardware complication. | | | Stable lumbar alignment with mild retrolisthesis of L1 over L2 and L2 | | | over L3. Slight retrolisthesis of T12 over L1. Stable height of | | | the vertebral bodies with stable minimal to mild compression | | | deformities at T12, L1, and L2. Cholecystectomy changes. | | | Bilateral total arthroplasty changes. IMPRESSION - No | | | radiographic evidence of interval complication. Dictated and | | | Signed by: Obie Khoury MD Electronically signed: 02/07/2018 | | | 2:47 PM | | + + + + + | Procedure Note | + + | Arnaldo, Rad Results In - 02/07/2018 2:50 PM PDT | | CLINICAL INFORMATION: Postoperative. | | | | COMPARISON: 01/31/2018. | | | | FINDINGS: | | AP and lateral views of the lumbosacral spine. | | | | Posterior pedicle screw and haylee fusion changes at L4 through the iliac bones | | with stable positioning of the interbody graft markers. Additional interbody | | graft spacer at L3-L4. Anterior screw and plate hardware at L5-S1. No evidence | | of hardware complication. | | | | Stable lumbar alignment with mild retrolisthesis of L1 over L2 and L2 over L3. | | Slight retrolisthesis of T12 over L1. Stable height of the vertebral bodies | | with stable minimal to mild compression deformities at T12, L1, and L2. | | | | Cholecystectomy changes. Bilateral total arthroplasty changes. | | | | IMPRESSION - No radiographic evidence of interval complication. | | | | Dictated and Signed by: Obie Khoury MD | | Electronically signed: 02/07/2018 2:47 PM | + + + +---------+ + + | Performing | Address | City[facility] | Phone Number | | Organization | | | | + +---------+ + + | [facility] | | | | + +---------+ + + LABS - EXTERNAL SCAN (01/16/2018 12:00 AM PDT) + + + | Narrative | Performed At | + + + | Ordered by an | | | unspecified provider. | | + + + LABS - EXTERNAL SCAN (01/09/2018 12:00 AM PDT) + + + | Narrative | Performed At | + + + | Ordered by an | | | unspecified provider. | | + + + documented in this encounter Visit Diagnoses + + | Diagnosis | + + | S/P lumbar fusion - Primary Arthrodesis status | + + | Encounter for post surgical wound check | + + documented in this encounter
--- OUTSIDE RECORDS SUMMARY | ~2020-02-04 | XMS | Encounter Summary ---
Demographics + + + | Address | [address] | | | [place] [address] | + + + | Home Phone | | + + + | Preferred Language | Unknown | + + + | Marital Status | | + + + | Amish Affiliation | 1013 | + + + | Race | White | + + + | Ethnic Group | Not or | + + + Author + + + | Author | [facility] | | | and [place] | + + + | Organization | [facility] | | | [...] [place] | | | | | [address] | | + + + + + | Leslie Lentz | ECON | Unknown | | + + + + + Care Team Providers + +------+ + | Care Excelsior Cutter Name | Role | Phone | + +------+ + | Aggie Dunn NP | PCP | | + +------+ + Reason for Visit +--------+--------+ + | Reason | Onset | Comments | | | Date | | +--------+--------+ + | LABS | 01/09/ | | | | 2018 | | +--------+--------+ + Encounter Details +--------+ + + + + | Date | Type | Department | Care Team | Description | +--------+ + + + + | 01/09/ | Telephone | [facility] [place] | Kai Gillespie MD | LABS | | 2018 | | NEUROSURGERY [address] | [address] | | | | | [facility] [address] | [place] [address] | | | | | [place] | [phone] | | | | | [address] | | | | | | [phone] | | | +--------+ + + + [...] this encounter Miscellaneous Notes Telephone Encounter - Nano Aragon RN - 01/09/2018 9:47 AM PDTFelipe from IV therapy l abs at [facility] called to state that patient had vanco trough completed. He wanted to know if he could get a verbal order for pharmacy to adjust the vaco instead of Dr. Gillespie. Spoke with AYALA Story he states that pharmacy should take care of this. Diaz with fax over order to daniela ledesma MD sign. All questions answered at this time. Will await fax. documented in this encounter Plan of Treatment Not on filedocumented as of this encounter Visit Diagnoses Not on filedocumented in this encounter"
--- OUTSIDE RECORDS SUMMARY | ~2020-02-04 | XMS | Encounter Summary ---
Demographics + + + | Address | [address] | | | [place] [address] | + + + | Home Phone | | + + + | Preferred Language | Unknown | + + + | Marital Status | | + + + | Hoahaoism Affiliation | 1013 | + + + | Race | White | + + + | Ethnic Group | Not or | + + + Author + + + | Author | [facility] | | | and [place] | + + + | Organization | [facility] | | | [...] [place] | | | | | [address] | | + + + + + | Leslie Lentz | ECON | Unknown | | + + + + + Care Team Providers + +------+ + | Care Supervisor Line Department Name | Role | Phone | + +------+ + PCP | Unavailable | + +------+ + Encounter Details +--------+ + + + + | Date | Type | Department | Care Team | Description | +--------+ + + + + | 08/16/ | Hospital | [facility] | Kai Gillespie MD | Status post lumbar | | 2018 | Encounter | MED CTR XRAY [address] | [address] | spinal fusion | | | | [address] | [place] [address] | | | | | [place] [address] | [phone] | | | | | [phone] | | | +--------+ + + + [...] + + documented as of this encounter Medications at Time of Discharge [...] tablet by | 90 | 2 | 11/16/19 | | | (FLEXERIL) 10 mg | mouth every 6 hours | tablet | | 17 | 8 | | tablet | as needed for Muscle | | | | | | | spasms. | | | | | + + + +---------+ + + | gabapentin | Take 2 capsules by | 180 | 1 | 11/16/19 | | | (NEURONTIN) 300 mg | mouth 3 times daily. | capsule | | 17 | 8 | | capsule | | | | | | + + + +---------+ + + | | Take 1-2 tablets by | 45 | 0 | 02/09/20 | | | HYDROcodone-acetamin | mouth every 4 hours | tablet | | 17 | 8 | | ophen (NORCO) 10-325 | as needed for Pain. | | | | | | mg per tablet | | | | | | + + + +---------+ + + | insulin glulisine | Inject 20 Units | | 0 | | | | (APIDRA) 100 | under the skin 3 | | | | 8 | | units/mL injection | times daily (with | | | | | | | meals). | | | | | + + [...] mLs by mouth | 240 mL | 3 | 11/16/19 | | | mL solution | 2 times daily. | | | 17 | 8 | + + + +---------+ + + | LORazepam (ATIVAN) | Take 1-2 tablets by | 30 | 0 | 11/16/19 | | | 0.5 mg tablet | mouth Twice daily | tablet | | 17 | 8 | | | as needed for | | | | | | | Anxiety. | | | | | + + + +---------+ + + | LORazepam (ATIVAN) | Take 0.5-1 tablets | | 0 | 07/06/19 | | | 1 mg tablet | by mouth Twice | | | 17 | 8 | | | daily as needed for | | | | | | | Anxiety. | | | | | + + [...] + + +---------+ + + | oxyCODONE (XTAMPZA | Take 9 mg by mouth 2 | | 0 | | | | ER) 9 mg ER | times daily. | | | | 8 | | abuse-deterrent | | | | | | | capsule | | | [...] LUMBAR SPINE 2 OR | Routin | 08/16/2017 | Status post lumbar | Results for this | | 3 VW | e | 11:51 AM | spinal fusion | procedure are in the | | | | PDT | | results section. | + +--------+ + + + documented in this encounter Results XR Lumbar Spine 2 or 3 Vw (08/16/2017 11:51 AM PDT) + + | Specimen | + + | | + + + + + | Narrative | Performed At | + + + | EXAM:XR LUMBAR SPINE 2 OR 3 VW CLINICAL HISTORY: post lumbar | [facility] | | fusion COMPARISON: Lumbar spine radiograph dating to November 11, | | | 2016. FINDINGS: Frontal and lateral views of the lumbar spine. | | | Posterior and interbody fusion changes from L3 through S1. Intact | | | hardware. No change in position of the interbody graft markers. | | | No change in spinal alignment. Stable spondylosis at T12-L1 and | | | L1-L2. IMPRESSION - No radiographic evidence for an interval | | | complication. Dictated and Signed by: Jim Devi MD | | | Electronically signed: 08/16/2017 1:32 PM | | + + + + + | Procedure Note | + + | Juni Mcintosh Results In - 08/16/2017 1:35 PM PDT EXAM:XR LUMBAR SPINE 2 OR 3 VW | | | | CLINICAL HISTORY: post lumbar fusion | | | | COMPARISON: Lumbar spine radiograph dating to November 11, 2016. | | | | FINDINGS: Frontal and lateral views of the lumbar spine. Posterior and | | interbody fusion changes from L3 through S1. Intact hardware. No change in | | position of the interbody graft markers. No change in spinal alignment. Stable | | spondylosis at T12-L1 and L1-L2. | | | | IMPRESSION - | | | | No radiographic evidence for an interval complication. | | | | Dictated and Signed by: Jim Devi MD | | Electronically signed: 08/16/2017 1:32 PM | + + + +---------+ + + | Performing | Address | City/State/Zipcode | Phone Number | | Organization | | | | + +---------+ + + | [facility] | | | | + +---------+ + + documented in this encounter Visit Diagnoses + + | Diagnosis | + + | Status post lumbar spinal fusion Arthrodesis status | + + documented in this encounter"
--- OUTSIDE RECORDS SUMMARY | ~2020-02-04 | XMS | Encounter Summary ---
Demographics + + + | Address | [address] | | | [place] [address] | + + + | Home Phone | | + + + | Preferred Language | Unknown | + + + | Marital Status | | + + + | Restorationist Affiliation | 1013 | + + + | Race | White | + + + | Ethnic Group | Not or | + + + Author + + + | Author | [facility] | | | and [place] | + + + | Organization | [facility] | | | [...] [place] | | | | | [address] | | + + + + + | Leslie Lentz | ECON | Unknown | | + + + + + Care Team Providers + +------+ + | Care Lan Administrator Name | Role | Phone | + +------+ + PCP | Unavailable | + +------+ + Encounter Details +--------+ + + + + | Date | Type | Department | Care Team | Description | +--------+ + + + + | 07/08/ | Orders Only | [facility] [place] | Kai Gillespie MD | Back pain, | | 2017 | | NEUROSURGERY [address] | unspecified back | | | | [address] | [place] [address] | location, | | | | [place], [place] | [phone] | unspecified back | | | | [address] | | pain laterality, | | | | [phone] | | unspecified | | | | | | chronicity (Primary | | | | | | Dx) | +--------+ + + + + Social [...] Not on filedocumented as of this encounter Results XR Lumbar Spine 4 + Vw (08/26/2016 9:10 AM PDT) + + | Specimen | + + | | + + + + + | Narrative | Performed At | + + + | XR LUMBAR SPINE 4 + VW 08/26/2016 9:10 AM HISTORY: Back pain. | [facility] | | COMPARISON: Multiple priors. FINDINGS: There is mild | [facility] | | dextroscoliosis of the lumbar spine. Moderate spondylosis is present. | [facility] | | Mild retrolistheses are noted of L1 over L2 and L3 over L4. Minimal | - IMAGING | | anterolisthesis is observed of L4 over L5. There is mild | | | anterolisthesis of L5 over S1. There is no evidence for instability. | | | Bone mineralization is decreased. Vertebral body height are preserved | | | with no evidence for compression fractures. Mild disc narrowing are | | | at T11-12 and L3-4. Moderate to severe disc narrowing are at T12-L1 | | | and L1-2. Multilevel facet sclerosis and hypertrophy are observed. | | | Visualized ribs and pelvic osseous structures show no acute findings. | | | Cholecystectomy clips are noted. There are bilateral hip | | | arthroplasties. IMPRESSION - Multilevel degenerative changes with | | | no instability. Dictated and Signed by: Neri Degroot MD | | | Electronically signed: 08/26/2016 10:41 AM | | + + + + + | Procedure Note | + + | Juni Mcintosh Results In - 08/26/2016 10:44 AM PDT XR LUMBAR SPINE 4 + VW 08/26/2016 9:10 AM | | | | HISTORY: Back pain. | | | | COMPARISON: Multiple priors. | | | | FINDINGS: | | There is mild dextroscoliosis of the lumbar spine. Moderate spondylosis is | | present. Mild retrolistheses are noted of L1 over L2 and L3 over L4. Minimal | | anterolisthesis is observed of L4 over L5. There is mild anterolisthesis of L5 | | over S1. There is no evidence for instability. Bone mineralization is decreased. | | Vertebral body height are preserved with no evidence for compression fractures. | | Mild disc narrowing are at T11-12 and L3-4. Moderate to severe disc narrowing | | are at T12-L1 and L1-2. Multilevel facet sclerosis and hypertrophy are observed. | | Visualized ribs and pelvic osseous structures show no acute findings. | | Cholecystectomy clips are noted. There are bilateral hip arthroplasties. | | | | IMPRESSION - | | Multilevel degenerative changes with no instability. | | | | Dictated and Signed by: Neri Degroot MD | | Electronically signed: 08/26/2016 10:41 AM | + + + + + + + | Performing | Address | City/State/Zipcode | Phone Number | | Organization | | | | + + + + + | [facility] | [address] | [place] | [phone] | | [facility] | | [address] | | | - IMAGING | | | | + + + + + documented in this encounter Visit Diagnoses + + | Diagnosis | + + | Back pain, unspecified back location, unspecified back pain laterality, unspecified | | chronicity - Primary | + + documented in this encounter"
--- OUTSIDE RECORDS SUMMARY | ~2020-02-04 | XMS | Encounter Summary ---
Demographics + + + | Address | [address] | | | [place] [address] | + + + | Home Phone | | + + + | Preferred Language | Unknown | + + + | Marital Status | | + + + | Caodaism Affiliation | 1013 | + + + | Race | White | + + + | Ethnic Group | Not or | + + + Author + + + | Author | [facility] | | | and [place] | + + + | Organization | [facility] | | | and [...] [address] [place] | | | | | [address] | | + + + + + | Leslie Lentz | ECON | Unknown | | + + + + + Care Team Providers + +------+ + | Care Personal Attendant Name | Role | Phone | + +------+ + PCP | Unavailable | + +------+ + Encounter Details +--------+ + + + + | Date | Type | Department | Care Team | Description | +--------+ + + + + | 09/14/ | Orders Only | [facility] | Kai Gillespie MD | Lumbar radiculopathy | | 2018 | | NEUROSURGERY [address] | [address] | (Primary Dx); | | | | [address] | [place] [address] | Foraminal stenosis | | | | [place] | [phone] | of lumbar region; | | | | [address] | | Right foot drop; | | | | [phone] | | Pseudoarthrosis of | | | | | | lumbar spine; Lumbar | | | | | | facet joint pain | +--------+ + + + + Social [...] + | Diagnosis | + + | Lumbar radiculopathy - Primary Thoracic or lumbosacral neuritis or radiculitis, | | unspecified | + + | Foraminal stenosis of lumbar region Spinal stenosis, lumbar region, without | | neurogenic claudication | + + | Right foot drop Other acquired deformity of ankle and foot | + + | 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
--- OUTSIDE RECORDS SUMMARY | ~2020-02-04 | XMS | Encounter Summary ---
Demographics + + + | Address | [address] | | | [place] [address] | + + + | Home Phone | | + + + | Preferred Language | Unknown | + + + | Marital Status | | + + + | Pentecostalism Affiliation | 1013 | + + + | Race | White | + + + | Ethnic Group | Not or | + + + Author + + + | Author | [facility] | | | and [place] | + + + | Organization | [facility] | | [...] [address] [place] | | | | | [address] | | + + + + + | Leslie Lentz | ECON | Unknown | | + + + + + Care Team Providers + +------+ + | Care Designer/Writer Name | Role | Phone | + +------+ + PCP | Unavailable | + +------+ + Encounter Details +--------+ + + + + | Date | Type | Department | Care Team | Description | +--------+ + + + + | 08/12/ | Orders Only | [facility] | Kai Gillespie MD | Status post lumbar | | 2018 | | NEUROSURGERY [address] | [address] | spinal fusion | | | | [address] | [place] [address] | (Primary Dx) | | | | [place] | [phone] | | | | | [address] | | | | | | [phone] | | | +--------+ + + + [...] of this encounter Results XR Lumbar Spine 2 [...] + | Arnaldo, Rad Results In - 08/16/2017 1:35 PM PDT [...] + | Status post lumbar spinal fusion - Primary Arthrodesis status | + + documented in this encounter"
--- OUTSIDE RECORDS SUMMARY | ~2020-02-04 | XMS | Encounter Summary ---
Demographics + + + | Address | [address] | | | [place] [address] | + + + | Home Phone | | + + + | Preferred Language | Unknown | + + + | Marital Status | | + + + | Zoroastrian Affiliation | 1013 | + + + | Race | White | + + + | Ethnic Group | Not or | + + + Author + + + | Author | [facility] | | | and [place] | + + + | Organization | [facility] | | [...] [place] | | | | | [address] | | + + + + + | Leslie Lentz | ECON | Unknown | | + + + + + Care Team Providers + +------+ + | Care Blood Tester Name | Role | Phone | + +------+ + | Aggie Dunn NP | PCP | | + +------+ + Encounter Details +--------+ + + + + | Date | Type | Department | Care Team | Description | +--------+ + + + + | 02/07/ | Hospital | [facility] | Kai Gillespie MD | S/P lumbar fusion; | | 2017 | Encounter | MED CTR XRAY [address] | [address] | Encounter for post | | | | [address] | [place] [address] | surgical wound check | | | | [place] [address] | [phone] | | | | | [phone] | | | +--------+ + + + [...] + + + +---------+ + + | acetaminophen | Take 500-1,000 mg by | | 0 | | | | (TYLENOL) 500 mg | mouth every 8 hours | | | | | | tablet | as needed for Pain | | | | | | | or Fever. | | | | | + + + +---------+ + + | aspirin 81 mg EC | Take 81 mg by mouth | | 0 | | | | tablet | Daily. | | | | | + + + +---------+ + + | atorvaSTATin | Take 40 mg by mouth | | 0 | 01/12/20 | | | (LIPITOR) 40 mg | daily. | | | 18 | | | tablet | | | | | | + + + +---------+ + + | cholecalciferol | Take 2,000 Units by | | 0 | | | | (VITAMIN D-3) 2000 | mouth Daily. | | | | | | units TABS | | | | | | + + + +---------+ + + | cyclobenzaprine | Take 0.5-1 tablets | 90 | 2 | 01/05/20 | | | (FLEXERIL) 10 mg | by mouth 3 times | tablet | | 18 | | | tablet | daily as needed for | | | | | | | Muscle spasms. | | | | | + [...] + + + +---------+ + + | glucagon (GLUCAGON | Inject 1 mg into the | | 0 | | | | EMERGENCY) 1 MG | muscle as needed | | | | | | injection | (for blood sugar | | | | | | | less than 60 and | | | | | | | unresponsive). | | | | | + + + +---------+ + + | | Take 1-2 tablets by | 120 | 0 | 01/26/20 | | | HYDROcodone-acetamin | mouth every 4 hours | tablet | | 18 | | | ophen (NORCO) 10-325 | as [...] + + +---------+ + + | insulin lispro | Inject 0-15 Units | | 0 | | | | (HUMALOG KWIKPEN) | under the skin | | | | | | 100 units/mL | nightly. Per sliding | | | | | | injection (pen) | scale:150-200= 0 | | | | | | | llofb777-128= 3 | | | | | | | -464= 6 | | | | | | | wilca132-630= 9 | | | | | | | -710= 12 | | | | | | | -130= 15 | | | | | | | units | | | | | + + + +---------+ + + | insulin lispro | Inject 3-18 Units | | 0 | | | | (HUMALOG JOSIEPEN) | under the skin 3 | | | | | | 100 units/mL | times daily (before | | | | | | injection (pen) | meals). Per sliding | | | | | | | scale:150-200= 3 | | | | | | | -285= 6 | | | | | | | cadct203-617= 9 | | | | | | | -713= 12 | | | | | | | dlebo179-914= 15 | | | | | | | pupbh448-624= 18 | | | | | | | units | | | | | + + + +---------+ + + | lactulose 10 g/15 | Take 20 g by mouth. | | 0 | 01/05/20 | | | mL solution | | | | 18 | | + + + +---------+ + + | lactulose 10 g/15 | Take 30 mLs by mouth | 240 mL | 2 | 01/05/20 | | | mL solution | 2 times daily. For | | | 18 | | | | constipation | | | | | + + + +---------+ + + | | Take 1 tablet by | | 0 | | | | losartan-hydrochloro | mouth Daily. | | | | | | thiazide (HYZAAR) | | | | | | | 50-12.5 MG per | | | | | [...] + + + +---------+ + + | vancomycin IVPB | Inject 1.5 g into | 56 each | 0 | 01/05/20 | | | 1.5 gIndications: | the vein every 12 | | | 18 | | | Complicated Skin & | hours. Indications: | | | | | | Skin Structure Inf. 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 | | | | | | Diabetes Mellitus, | caused by MRSA, | | | | | | Infection, | Diabetes, Infection, | | | | | | dehiscence of | dehiscence of | | | | | | surigical wound with | surigical wound with | | | | | | MRSA and DM hx. | MRSA and DM hx. | | | | | | Culture pending for | Culture pending for | | | | | | gram positive cocci | gram positive cocci | | | | | | on abdominal | on abdominal | | | | | | incision | incision | | | | | + + + +---------+ + + | atorvaSTATin | Take 40 mg by mouth. | | 0 | 01/12/20 | | | (LIPITOR) 40 mg | | | | 18 | 9 | | tablet | | | | | | + + + +---------+ + + | Vancomycin HCl in | Inject 1,250 mg into | | 0 | 01/28/20 | | | NaCl 1.5-0.9 | the vein. | | | 18 | 8 | | GM/150ML-% SOLN | | | | | | + [...] LUMBAR SPINE 2 OR | Routin | 02/07/2018 | S/P lumbar fusion | Results for this | | 3 VW | e | 1:46 PM | Encounter for post | procedure are in the | | | | PDT | surgical wound check | results section. | + +--------+ + [...] | + + | S/P lumbar fusion Arthrodesis status | + + | Encounter for post surgical wound check | + + documented in this encounter"
--- OUTSIDE RECORDS SUMMARY | ~2020-02-04 | XMS | Encounter Summary ---
Demographics + + + | Address | [address] | | | [place] [address] | + + + | Home Phone | | + + + | Preferred Language | Unknown | + + + | Marital Status | | + + + | Jehovah'S Witness Affiliation | CHR | + + + | Race | White | + + + | Ethnic Group | Not or | + + + Author + + + | Author | [facility] | + + + | Organization | [facility] | + + + | Address | Unknown | + + + | Phone | Unavailable | + + + Support + + +---------+ + | Name | Relationship | Address | Phone | + + +---------+ + | Leslie Lentz | ECON | Unknown | | + + +---------+ + Care Team Providers + +------+ + | Care Row Boss Name | Role | Phone | + +------+ + | Aggie Dunn AGENCY LEGAL COUNSEL | PCP | | + +------+ + [...] + + | 01/01/ | Hospital | [facility] | Tammy Bagley, | | | 2020 | Encounter | [address] | [address] | | | | [address] | [place] | | | | | [address] | [place], [place] | | | | | [place], [place] | [address] | | | | | [address] | [phone] | | | | | | | [...] + documented in this encounter Discharge Instructions Instructions Nickie Capps RN - 01/02/2020Home Care after Retinal Detachment and Vitrecto my Surgery Do not drive, drink alcoholic beverages, [...] the eye medicine bottle or tub e POSITIONING___DO NOT LIE FLAT ON BACK What to expect It is normal after [...] your Doctor ? Call (Day or Night) ? Return appointment date: ? Time: documented in this encounter Medications at Time of Discharge + + + +---------+ + + | Medication | Sig | Dispensed | Refills | Start | End Date | | | | | | Date | | + + + +---------+ + + | atropine 1 % | Instill 1 drop into | 5 mL | 11 | 08/15/ | | | ophthalmic (eye) | the left eye two | | | 20 | | | drops | times daily. | | | | | + + [...] + + + +---------+ + + | dorzolamide | | | 0 | 12/13/19 | | | HCl-timolol maleate | | | | 20 | | | 22.3 mg-6.8 mg/ml | | | | | | | ophthalmic (eye) | | | | | | | drops | | | | | | + + + +---------+ + + | DULoxetine 60 mg | | | 0 | 01/22/20 | | | oral capsule,delayed | | | | 16 | | | release(/) | | | | | | + [...] tablets by | 20 | 0 | 12/07/19 | | | HYDROcodone-acetamin | mouth every [...] + + + +---------+ + + | prednisoLONE | Instill 1 drop into | 10 mL | 0 | 12/08/19 | | | acetate 1 % | the left eye four | | | 20 | | | ophthalmic (eye) | times daily. | | | | | | drops,suspension | | | | | | + + + +---------+ + + | traMADol 50 mg | | | 0 | 02/04/20 | | | oral tablet | | | | 16 | | + + + +---------+ + + documented as of this encounter H&P Zaria Sommers MD - 01/02/2020 10:01 AM PDT History and Physical (Pre-op) Carlos Mustafa [id number] 01/02/2020 HPI: 59yo man with rhegmatogenous retinal detachment left eye Current Medications: Prescriptions prior to admission Medication Sig Dispense Refill atropine 1 % ophthalmic (eye) drops Instill 1 drop into the left eye two times daily. 5 mL 11 cefPODOxime 200 mg oral tablet cyclobenzaprine 10 mg oral tablet take 1/2-1 tablet by mouth three times a day (DO NOT TAKE WHILE WORKING OR DRIVING) 1 DULoxetine 60 mg oral capsule,delayed release(DR/EC) gabapentin 300 mg oral capsule HYDROcodone-acetaminophen 10-325 mg oral tablet take 1-2 tablets by mouth every 8 hours if needed for pain 0 HYDROcodone-acetaminophen 5-325 mg oral tablet Take 1-2 tablets by mouth every four margo rs as needed (moderate or severe pain). 20 tablet 0 ibuprofen 600 mg oral tablet irbesartan-hydrochlorothiazide 150-12.5 mg oral tablet LEVEMIR 100 unit/mL subcutaneous solution LORazepam 1 mg oral tablet take 1/2 to 1 tablet by mouth twice a day 0 metFORMIN 1,000 mg oral tablet prednisoLONE acetate 1 % ophthalmic (eye) drops,suspension Instill 1 drop into the left eye four times daily. 10 mL 0 traMADol 50 mg oral tablet 0 Past Medical History: Diagnosis Date Blindness difficulty [...] lumbosacral region Type 2 diabetes mellitus (HCC) SH: Reviewed in [facility] FH: No known family history of AMD, retinal detachment or blindness from unknown causes ROS: negative for 10 systems reviewed except for decreased vision left eye Exam: There were no vitals filed for this visit. HEENT: normal, except for eyes (see prior ophthalmology note) Heart: RRR, no murmur Lungs: Clear to auscultation Abdomen: Soft Extremities: no edema Neuro: intact Skin: intact A/P: To OR for pars plana vitrectomy and Endolaser with silicone oil left eye Okay to proceed with ocular surgery pending anesthesia approval Zaria Walker MD, PhD Fellow, Vitreoretinal Disease and Surgery [facility] documented in this encounter Miscellaneous Notes Op Note - Zaria Walker MD - 01/02/2020 11:47 AM PDTProcedure Date: 01/02/2020 Pre-operative Diagnosis: Rhegmatogenous retinal detachment, left eye Post-operative Diagnosis: Same as pre-operative diagnosis Procedure: Pars plana vitrectomy, left eye Endolaser photocoagulation, left eye Membrane peel, left eye Air-fluid exchange, left eye Silicone oil, left eye Surgeon: Tammy Bagley MD Toe Laster: Zaria Walker MD, PhD Anesthesia: MAC with retrobulbar block, left eye Implant: Silicone oil 5,000 EBL: < 5mL Specimens: None Complications: None Drain: None Indication for Surgery: Carlos Mustafa is a 59 y.o. male with a recurrent rhegmatogenous retinal detachment, left e ye. He now undergoes surgery. Surgical Narrative: The patient was brought into the operating theatre and was placed in supine position. After sufficient sedation was given, a 50:50 mix of 2% xylocaine and 0.75% bupivacaine was inject ed into the retrobulbar space using an Terry needle. The area around the left eye was the n prepped and draped in usual sterile manner for ophthalmic surgery. A lid speculum was plac ed and the operating microscope was brought over the eye. The eye was set up for standard 23 -gauge vitrectomy with the infusion trocar in the infratemporal quadrant and instrument troc ars in the supratemporal and supranasal quadrants. Using light pipe, vitrector, and the ResUnderstoryt viewing system, the retina was inspected. There was minimal vitreous present inferiorly that was trimmed in all clock hours in systematic fashion. A diluted triamcinolone solution was placed with a soft tip cannula over the macula for better visualization of the membrane . There were no mature membranes to peel. A finesse loop was used to remove early PVR overly ing the macula and around the retinotomy. Scleral depression was used to look for breaks in the periphery. The original break at 0900 was open with minimal residual vitreous anteriorly that appeared to have contracted at the anterior edge of the break. The retinotomy site sup erior mid-periphery was also open with contraction of retina around site. Endodiathermy was used to justin the break nasally and also used to make the retinotomy larger to relieve tensio n. Air-fluid exchange was performed with the extrusion cannula. The retina was flattened c ompletely. An endolaser probe was used to perform photocoagulation around the retinotomy and all breaks. The prior buckle was noted to have excellent contour and height. The optic nerv e remained perfused throughout the case. The sclerotomies and the conjunctival peritomies we re closed using 7-0 Polysorb sutures. As the eye was being closed, the eye was filled with 5 ,000 centistokes silicone oil to the level of the infusion. The scleral bed was irrigated wa s copious amount of balanced salt solution. Normal tactile intraocular pressure was confirme d. Decadron and Zinacef were given as subconjunctival injections. Ointment, atropine, a gauz e patch, and a metal shield were placed over the eye. The patient was moved to the recovery area in satisfactory condition. I certify that the services of which payment is claimed were medically necessary and that n o qualified resident was available to perform the services. I further understand that these services are subject to post-payment review by the Medicare carrier. Tammy Bagley MD documented in this encounter Plan of [...] | | + +--------+ + + + documented in this encounter Results PROCEDURE NOTE (01/02/2020 12:06 PM PDT)CAPILLARY BLOOD GLUCOSE (NO CHG), POC (01/02/2020 1 1:35 AM PDT) + +-------+ + + + [...] [facility] | [address] | [place], [place] | | | [facility] | [address] | [address] | | | TESTS | | | | + + + + + CAPILLARY BLOOD GLUCOSE (NO CHG), POC (01/02/2020 10:13 AM PDT) + +-------+ + + + | Component | Value | Ref Range | Performed | Pathologist | | | | | At | Signature | + +-------+ + + + | BLOOD | 80 | 70 - 99 mg/dL | [facility] [...] [facility] | [address] | [place], [place] | | | [facility] | [address] | [address] | | | TESTS | | | | + + + + + documented in this encounter Visit Diagnoses + + | Diagnosis | + + | Retinal detachment, left s/p PPV/SB/20% SF6 12/07/2019 - Primary Unspecified retinal | | detachment | + + documented in this encounter Administered Medications + +--------+---------+------+------+------+ | Medication Order | MAR | Action | Dose | Rate | Site | | | Action | Date | | | | + +--------+---------+------+------+------+ + +---+ | acetaminophen (TYLENOL) tablet | | | 650 mg 650 mg, oral, | | | POSTPROCEDURE PRN, 1 dose, | | | Starting Tue01/02/20 at 1039, | | | Until Tue01/02/20 at 1808, mild or | | | greater pain while in Phase 1 | | + +---+ | | | + +---+ + +-------+ +--------+---+---+ | cyclopentolate 1%-PHENYLEPHrine | Given | 01/02/20 | 1 drop | | | | 2.5%-tropicamide 0.25% | | 20 10:19 | | | | | (SUPERDROPS) ophthalmic drops 1 | | AM PDT | | | | | drop 1 drop, Left Eye, EVERY 5 | | | | | | | MINUTES NEEDED, 2 doses, | | | | | | | Starting Tue01/02/20 at 1004, | | | | | | | Until Tue01/02/20 at 1808, | | | | | | | pre-procedure dilation | | | | | | + +-------+ +--------+---+---+ + +---+ | | | + +---+ | fentaNYL (SUBLIMAZE) injection | | | 25-50 mcg 25-50 mcg, | | | intravenous, POSTPROCEDURE PRN, 8 | | | doses, Starting Tue01/02/20 at | | | 1040, Until Tue01/02/20 at 1808, | | | severe pain while in Phase I | | | Recovery | | + +---+ | | | + +---+ | naloxone (NARCAN) injection | | | intravenous, POSTPROCEDURE PRN, | | | Starting Tue01/02/20 at 1039, | | | Until Tue01/02/20 at 1808, | | | hypopnea | | + +---+ | | | + +---+ | ondansetron (ZOFRAN) injection | | | 4 mg 4 mg, intravenous, | | | POSTPROCEDURE PRN, 1 dose, | | | Starting Tue01/02/20 at 1040, | | | Until Tue01/02/20 at 1808, | | | nausea/vomiting, 2nd line | | + +---+ | | | + +---+ | promethazine (PHENERGAN) | | | injection 12.5 mg 12.5 mg, | | | intravenous, POSTPROCEDURE PRN, 2 | | | doses, Starting Tue01/02/20 at | | | 1040, Until Tue01/02/20 at 1808, | | | nausea/vomiting, 1st line | | + +---+ | | | + +---+ documented in this encounter
--- OUTSIDE RECORDS SUMMARY | ~2020-02-04 | XMS | Encounter Summary ---
Demographics + + + | Address | [address] | | | [place] [address] | + + + | Home Phone | | + + + | Preferred Language | Unknown | + + + | Marital Status | | + + + | Episcopal Affiliation | 1013 | + + + | Race | White | + + + | Ethnic Group | Not or | + + + Author + + + | Author | [facility] | | | and [place] | + + + | Organization | [facility] | | | and [...] [place] | | | | | [address] | | + + + + + | Leslie Lentz | ECON | Unknown | | + + + + + Care Team Providers + +------+ + | Care Mechanical Research Engineer Name | Role | Phone | + +------+ + PCP | Unavailable | + +------+ + Reason for Visit + + + | Reason | Comments | + + + | Back Pain | | + + + Evaluate & Treat (Routine) +--------+--------+ + + + + | Status | Reason | Specialty | Diagnoses / | Referred By | Referred To | | | | | Procedures | Contact | Contact | +--------+--------+ + + + + | Closed | | Neurosurgery | Diagnoses | El, | Kai Gillespie | | | | | | Jesus | MD [address] | | | | | Radiculopath | [place], | [address] | | | | | y, lumbar | [address] | [place], [place] | | | | | region | [address] | [address] | | | | | Procedures | [place], | Phone: | | | | | [place] OFFICE | [place] [address] | [phone] | | | | | CONSULTATION | Phone: | Fax: | | | | | NEW/ESTAB | [phone] | [phone] | | | | | PATIENT 58 | Fax: | | | | | | MIN | [phone] | | +--------+--------+ + + + + Encounter Details +--------+---------+ + + + | Date | Type | Department | Care Team | Description | +--------+---------+ + + + | 08/26/ | Office | [facility] | Sree Cunha | Spondylolisthesis of | | 2017 | Visit | NEUROSURGERY [address] | D, PA-C [address] | lumbar region | | | | [address] | (Primary Dx); Lumbar | | | | [place], [place] | [place], [place] | foraminal stenosis; | | | | [address] | [address] | Lumbar | | | | [phone] | | radiculopathy; | | | | | | Lumbar spinal | | | | | | stenosis; DDD | | | | | | (degenerative disc | | | | | | disease), lumbar | +--------+---------+ + + + Social History [...] + + + | Blood Pressure | 115/75 | 08/26/2016 10:58 AM | | | | | PDT | | + + + + + | Pulse | 89 | 08/26/2016 10:58 AM | | | | | PDT [...] + + + + | Weight | 128.4 kg (283 lb) | 08/26/2016 10:58 AM | | | | | PDT | | + + + + + | Height | 193 cm (6' 4") | 08/26/2016 10:58 AM | | | | | PDT | | + + + + + | Body Mass Index | 34.45 | 08/26/2016 10:58 AM | | | | | PDT | | + + + + + documented in this encounter Progress Notes Sree Cunha PA-C - 08/26/2016 11:06 AM PDTFormatting of this note might be differen t from the original. Sree Cunha PA-C [address] [facility], [address] [place] [address] FAX: NEUROSURGERY HISTORY AND PHYSICAL EXAMINATION CHIEF COMPLAINT: Chief Complaint Patient presents with Back Pain HISTORY OF PRESENT ILLNESS: The patient is a 56 y.o. male with the complaint of back and b ilateral leg pain symptoms that began 1 year ago. The patient describes complications after back surgery one year ago. Since back surgery patient has had back and leg pain. The patient states that after the surgery complications he spent 6 weeks in a [facility]. He describe s hearing a pooping noise of the back area after getting up from bed. The symptoms have been gradually worsening. He rates the pain as severe. The symptoms are daily. He describes the pain as numbing, tingling and aching. The patient describes leg symptoms that occur on both sides but worse on the right. The le g symptoms account for 50% of his symptoms. The leg symptoms are intermittent, and the symp toms travel from the back to the anterior thigh. The patient also describes the loss of the ability to walk distances without sitting, numbness of the leg, numbness of the foot and we akness of the leg. Patient is limited to walking long distances due to pain. Patient is bianca ble to walk for more than one block. The patient does not report any change in bowel or bladder function recently. His symptoms improve with nothing. His symptoms worsen with rest, changing position, standing, sitting, walking, kneeling, floyd ding and twisting. He has tried surgery. PT, Opioids and NSAIDS. The patient is currently taking opioids. T hese measures are no longer helping. PAST MEDICAL HISTORY: Past Medical History Diagnosis Date MRSA (methicillin resistant Staphylococcus aureus) Diabetes mellitus (HCC) Graves disease Sleep apnea HTN (hypertension) RLS (restless legs syndrome) Anxiety Depression Hearing deficit Vision disorder deficit Peroneal neuropathy Lumbar radiculopathy Lumbar facet joint pain PAST SURGICAL HISTORY: Past Surgical History Procedure Laterality Date Tonsillectomy Cholecystectomy 1998 [facility] Vasectomy Hip arthroplasty 2000 Dr. Castañeda Hip arthroplasty 2003 Dr. Castañeda Toe amputation 2013 Dr. Barber CURRENT MEDICATIONS: Current Outpatient Prescriptions Medication Sig Dispense Refill ALPRAZolam (XANAX) 1 MG tablet Take 1 mg by mouth nightly as needed for Sleep. aspirin 81 mg EC tablet Take 81 mg by mouth Daily. cefpodoxime (VANTIN) 200 mg tablet cholecalciferol (VITAMIN D-3) 2000 units TABS Take 2,000 Units by mouth Daily. citalopram (CELEXA) 40 mg tablet Take 40 mg by mouth Daily. DULoxetine (CYMBALTA) [address] capsule Take 60 mg by mouth Daily. 0 gabapentin (NEURONTIN) 300 mg capsule Take 300-600 mg by mouth 3 times daily. HYDROcodone-acetaminophen (NORCO) 10-325 mg per tablet Take 1 tablet by mouth every 8 h ours as needed for Pain. ibuprofen (ADVIL,MOTRIN) 600 MG tablet Take 600 mg by mouth 2 times daily. insulin detemir (LEVEMIR) 100 units/mL injection (vial) Inject 80 Units under the skin 2 times daily. insulin glulisine (APIDRA) 100 units/mL injection Inject 20 Units under the skin 3 time s daily (with meals). irbesartan-hydrochlorothiazide (AVALIDE) 150-12.5 MG per tablet Take 1 tablet by mouth Daily. LORazepam (ATIVAN) 1 mg tablet Take 0.5-1 tablets by mouth Twice daily as needed for A nxiety. 0 magnesium, as oxide, 250 MG tablet Take 250 mg by mouth Daily. metFORMIN (GLUCOPHAGE) 1000 MG tablet Take 1,000 mg by mouth 2 times daily (with breakf ast & dinner). methocarbamol (ROBAXIN) 750 mg tablet Take 750 mg by mouth 3 times daily. potassium 99 mg tablet Take 99 mg by mouth Daily. traMADol (ULTRAM) 50 mg tablet Take 50-100 mg by mouth every 6 hours as needed for Pain . No current facility-administered medications for this visit. ALLERGIES: Allergies Allergen Reactions Codeine Other (See Comments) "makes my skin crawl" Morphine Swelling Joint swelling SOCIAL HISTORY: The patient reports that he quit smoking about 10 years ago. His smoking use included Ciga rettes. He smoked 1.00 pack per day. He has never used smokeless tobacco. He reports that he drinks alcohol. He reports that he does not use illicit drugs. FAMILY HISTORY: Family History Problem Relation Age of Onset Other (see comment) Mother BOWEL DISORDER Other cancer Father STOMACH Diabetes, NIDDM Sister No Known Problems Brother No Known Problems Brother No Known Problems Child No Known Problems Paternal Grandfather No Known Problems Paternal Grandmother No Known Problems Maternal Grandfather No Known Problems Maternal Grandmother REVIEW OF SYSTEMS: GENERALLY: No fever, + night sweats, no anemia, no fatigue, no recent profound weight jeff nges. EYES: + eye problems, + use of corrective lenses, no eye injury, no double vision, no blin dness. EARS, NOSE, AND THROAT: No changes in taste or smell, no hearing difficulty, no ringing in the ears, no ear drainage, no dizziness, no voice changes, no difficulty swallowing, + sign ificant snoring, + sleep apnea, + sinus problems, + major dental work. NEUROLOGICALLY: Please see the review of systems discussed above in the history of present illness. In addition, the patient has numbness and pain of legs, awake with numbness and p ain, weakness, muscle aching, coordination difficulty, change in walk, back injury, neck and back pain.. PSYCHIATRIC: + depression, + sleep disorders, + anxiety, no bipolar disorder, no psychotic episodes. CARDIOVASCULAR: No heart attacks, no heart [...] no abdominal pain, no ulcers. KIDNEY DISEASE: + urinary frequency, no painful or difficult urination, no incontinence. ENDOCRINE: + diabetes, no thyroid disease, no osteopenia + osteoporosis, no breast drainag e. SKIN: No breast lumps, no skin changes, no rashes, no itches. HEMATOLOGIC/LYMPHATIC: No enlarged lymph nodes, no easy or unusual bleeding, no personal h istory of cancer. RHEUMATOLOGIC: + joint arthritis, no rheumatoid arthritis. PHYSICAL EXAMINATION: Blood pressure 115/75, pulse 89, height 1.93 m (6' 4"), weight 128.368 kg (283 lb). Body ma ss index is 34.46 kg/(m^2). GENERAL: Llee Mustafa is in no acute distress with unlabored respirations. The p atient does not appear uncomfortable throughout the exam today. HEENT: Head: Normocephalic/atraumatic with no areas of recent trauma. Eyes: Normal sclerae without icterus. Ears: No drainage or tenderness. Nasopharnyx: Clear without drainage. Oropharnyx: Clear without erythema. NECK (ANTERIOR): Supple and without palpable masses. CHEST: Clear to ausculation without crackles or wheeze. HEART: Regular rate and rhythm without murmurs. ABDOMEN: Soft, non-tender, non-distended, and without palpable masses. The patient is obese . SPINE: There is no tenderness of there cervical or thoracic spine. The lumbar spine shows there is tenderness in the midline of the lumbar spine. To palpatio n, there is no significant myofascial tenderness. There is no significant pain to provacative testing of the SI joint. There is no major deformity noted. EXTREMITIES: No cyanosis, clubbing, or edema. Distal pulses are palpable. NEUROLOGICAL EXAM: MENTAL STATUS: The patient is awake, alert, and oriented. He follows simple and complex commands. His speech is fluent, he comprehends speech well, and he repeats well. He has no apparent deficits with short or intermodal customer service memory. CRANIAL NERVES: II: Acuity is intact. Flores are full to confrontation. III, IV, : The pupils are reactive. Extraocular movements are intact. No ptosis is note d. V: Facial sensation is intact and symmetric. VII: Facial movements are symmetric. VIII: Hearing is intact bilaterally. IX, X: The uvula and palate move appropriately. XI: Shrug is equal bilaterally. XII: Tongue protrusion is midline. MOTOR EXAM: (5 IS NORMAL) * Indicates pain limited MUSCLE/ MOVEMENT: RIGHT LEFT Deltoids 5 5 Biceps 5 5 Triceps 5 5 Wrist Flexion 5 5 Wrist Extension 5 5 Median Intrinsics 5 5 Ulnar Intrinsics 5 5 Mine Car Dispatcher Strength 5 5 Hip Flexion 5 5 Hip Extension 4+ 5 Knee Flexion 5 5 Knee Extension 4+ 5 Dorsiflexion 5 5 Extensor Hallicus Longus 5 5 Plantarflexion 5 5 SENSORY EXAM: Sensory exam shows no diminished sensation to light touch or pain throughout the upper and lower extremities. REFLEXES: (2 OR 2+ IS NORMAL) REFLEX: RIGHT LEFT BICEPS 2+ 2+ BRACHIORADIALIS 2+ 2+ TRICEPS 2+ 2+ PATELLAR 0 2+ ACHILLES 2+ 2+ BLANK'S ABSENT ABSENT PLANTAR DOWNGOING DOWNGOING GAIT: Gait is steady. PERIPHERAL NERVE/MISC: Tinel is negative at the wrists and elbows bilaterally. Phalen is negative. Straight leg raise is negative bilaterally. Obie's test of the hips is negative bilaterally. TEST AND RADIOGRAPHIC REVIEW: The patient's imaging was reviewed in detail with the patient today during the visit. The MRI from 2016 shows severe spinal stenosis at L3-4. Mild to severe foraminal narrowing at mu ltiple levels. He has postoperative open changes and evidence of pedicle screw removal. Lumbar x-rays show scoliosis with degeneration. 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 ASSESSMENT: NEUROSURGICAL DIAGNOSES: Encounter Diagnoses Name Primary? Spondylolisthesis of lumbar region Yes Lumbar foraminal stenosis Lumbar radiculopathy Lumbar spinal stenosis DDD (degenerative disc disease), lumbar GENERAL DIAGNOSES: Past Medical History Diagnosis Date MRSA (methicillin resistant Staphylococcus aureus) Diabetes mellitus (HCC) Graves disease Sleep apnea HTN (hypertension) RLS (restless legs syndrome) Anxiety Depression Hearing deficit Vision disorder deficit Peroneal neuropathy Lumbar radiculopathy Lumbar facet joint pain PLAN: Lele Mustafa presented today, and it was a pleasure seeing this patient and asses sing his neurologic problems. The patient has severe foraminal stenosis and degenerative disease in his lumbar spine. Thi s is likely a contributor to his symptoms. . The patient has progressive symptoms despite n on-operative measures. He wishes to have something done if it can be done. ELECTRONICALLY SIGNED BY: Sree Cunha PA-C, 08/26/2016 11:36 Bre Leon assisted me in the event marketing assistant of this note in my presence today. I had a lengthy discussion with the patient about his options for care including surgical a nd non-surgical options. 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 I do not feel it was appropriate to remove his hardware witho ut revision and that course was extremely complicated. He also now has a L3-4 problem unadd ressed by his prior surgeon that doesn't want to help this patient any longer. I discussed a L3-4 LLIF and L5-S1 TLIF. We need to get his records on the type of infectio n he had after his revision for planning and seek authorization and clearance for this. ELECTRONICALLY SIGNED BY: Kai Gillespie M.D., 08/26/2016 17:35 documented in this encounter Plan of Treatment Not on filedocumented as of this encounter Visit Diagnoses + + | Diagnosis | + + | Spondylolisthesis of lumbar region - Primary Acquired spondylolisthesis | + + | Lumbar foraminal stenosis Spinal stenosis, lumbar region, without neurogenic | | claudication | + + | Lumbar radiculopathy Thoracic or lumbosacral neuritis or radiculitis, unspecified | + + | Lumbar spinal stenosis Spinal stenosis, lumbar region, without neurogenic | | claudication | + + | DDD (degenerative disc disease), lumbar Degeneration of lumbar or lumbosacral | | intervertebral disc | + + documented in this encounter
--- OUTSIDE RECORDS SUMMARY | ~2020-02-04 | XMS | Encounter Summary ---
Demographics + + + | Address | [address] | | | [place] [address] | + + + | Home Phone | | + + + | Preferred Language | Unknown | + + + | Marital Status | | + + + | Gnosticist Affiliation | 1013 | + + + | Race | White | + + + | Ethnic Group | Not or | + + + Author + + + | Author | [facility] | | | and [place] | + + + | Organization | [facility] | | | [...] [address] | | | | | [address] | | + + + + + | Leslie Lentz | ECON | Unknown | | + + + + + Care Team Providers + +------+ + | Care Aqueduct And Reservoir Keeper Name | Role | Phone | + +------+ + PCP | Unavailable | + +------+ + Encounter Details +--------+ + + + + | Date | Type | Department | Care Team | Description | +--------+ + + + + | 08/29/ | Imaging | [facility] | Provider, | | | 2018 | Exam | [facility] | MD [address] | | | | | IMAG[address] | [place] [place] | | | | | [address] | [place] [address] | | | | | [place] [address] | | | | | | [phone] | | | +--------+ + + + [...] | + +--------+ + + + | MRI LUMBAR SPINE WO | Routin | 08/25/2017 | | Results for this | | CONTRAST | e | 3:10 PM | | procedure are in the | | | | PDT | | results section. | + +--------+ + + + documented in this encounter Results MRI Lumbar Spine wo Contrast (08/25/2017 3:10 PM PDT) + + | Specimen | + + | | + + + + + | Narrative | Performed At | + + + | External films for comparison only | [facility] | | | | | No results will be in the chart. | | + + + + +---------+ + + | Performing | Address | City/State/Zipcode | Phone Number | | Organization | | | | + +---------+ + + | [facility] | | | | + +---------+ + + documented in this encounter Visit Diagnoses Not on filedocumented in this encounter"
--- OUTSIDE RECORDS SUMMARY | ~2020-02-04 | XMS | Encounter Summary ---
Demographics + + + | Address | [address] | | | [place] [address] | + + + | Home Phone | | + + + | Preferred Language | Unknown | + + + | Marital Status | | + + + | Sikhism Affiliation | 1013 | + + + | Race | White | + + + | Ethnic Group | Not or | + + + Author + + + | Author | [facility] | | | and [place] | + + + | Organization | [facility] | | | and [...] [address] | | | | | [address] | | + + + + + | Leslie Lentz | ECON | Unknown | | + + + + + Care Team Providers + +------+ + | Care Masonry Teacher Name | Role | Phone | + +------+ + PCP | Unavailable | + +------+ + Encounter Details +--------+ + + + + | Date | Type | Department | Care Team | Description | +--------+ + + + + | 11/01/ | Episode | [facility] [place] | Bre Guido, | | | 2018 | Changes | NEUROSURGERY [address] | Director Family | | | | | [address] | | | | | | [place] | | | | | | [address] | | | | | | [phone] | | | +--------+ + + + [...]
--- OUTSIDE RECORDS SUMMARY | ~2020-02-04 | XMS | Encounter Summary ---
Demographics + + + | Address | [address] | | | [place] [address] | + + + | Home Phone | | + + + | Preferred Language | Unknown | + + + | Marital Status | | + + + | Pentecostal Affiliation | 1013 | + + + [...] [id number] | | | | | [address] | | + + + + + | Leslie Lentz | ECON | Unknown | | + + + + + Care Team Providers + +------+ + | Care Ferruler Name | Role | Phone | + +------+ + PCP | Unavailable | + +------+ + Reason for Visit +---------+ + | Reason | Comments | +---------+ + | Post Op | 4w PO | +---------+ + Encounter Details +--------+---------+ + + + | Date | Type | Department | Care Team | Description | +--------+---------+ + + + | 12/08/ | Office | [facility] | Sonido Lund | Lumbar radiculopathy | | 2017 | Visit | NEUROSURGERY [address] | [address] | (Primary Dx); | | | | [address] | [address] [place], [place] | Lumbar facet joint | | | | [place] | [address] | pain; S/P lumbar | | | | [address] | | fusion | | | | [phone] | | | +--------+---------+ + + + [...] + + + | Blood Pressure | 125/82 | 12/08/2016 10:45 AM | | | | | PDT | | + + + + + | Pulse | 89 | 12/08/2016 10:45 AM | | | | | PDT | | + + + + + | Temperature | - | - | | + + + + + | Respiratory Rate | 18 | 12/08/2016 10:45 AM | | | | | PDT | | + + + + + | Oxygen Saturation | - | - | | + + + + + | Inhaled Oxygen | - | - | | | Concentration | | | | + + + + + | Weight | 125.2 kg (276 lb) | 12/08/2016 10:45 AM | | | | | PDT | | + + + + + | Height | 193 cm (6' 4") | 12/08/2016 10:45 AM | | | | | PDT | | + + + + + | Body Mass Index | 33.6 | 12/08/2016 10:45 AM | | | | | PDT [...] of this encounter Patient Instructions Patient Instructions Sonido Lund PA-C - 12/08/2016 10:30 AM PDTContinue to use yo ur lumbar brace at all times while you are up out of bed please. Please continue to work wi th therapy. We will see you back in approximately 2 months with x-rays. In addition I have asked him not to use any anti-inflammatory is at this time as they interfere with the fusio n process documented in this encounter Progress Notes Sonido Lund PA-C - 12/08/2016 10:30 AM PDTFormatting of this note might be differ ent from the original. Sonido Lund PA-C [address] [facility], [facility] [address] [place] [address] FAX: NEUROSURGERY FOLLOW-UP CHIEF COMPLAINT: Chief Complaint Patient presents with Post Op 4w PO HISTORY OF PRESENT ILLNESS: The patient is a 56 y.o. male that had a lumbar fusion for cali nosis and radiculopathy around 4 weeks ago. He returns and overall is doing okay. The leslie ent complains of continued right leg symptoms. His left leg is improved. He continues with right leg weakness. Overall this is improving with therapy. He is currently undergoing re hab [facility] in [place]. He is told that he will most likely be progresse d to independent ambulation with his walker by the end of the week if he continues to improv e.. The patient has been walking as much as directed. He is still taking pain medications at this point. The patient has had no issues with his surgical site. CURRENT MEDICATIONS: Current Outpatient Prescriptions Medication Sig Dispense Refill aspirin 81 mg EC tablet Take 81 mg by mouth Daily. cholecalciferol (VITAMIN D-3) 2000 units TABS Take 2,000 Units by mouth Daily. cyclobenzaprine (FLEXERIL) 10 mg tablet Take 1 tablet by mouth every 6 hours as needed for Muscle spasms. 90 tablet 2 DULoxetine (CYMBALTA) [address] capsule Take 60 mg by mouth Daily. 0 gabapentin (NEURONTIN) 300 mg capsule Take 2 capsules by mouth 3 times daily. 180 capsu le 1 insulin detemir (LEVEMIR) 100 units/mL injection (vial) Inject 80 Units under the skin 2 times daily. insulin glulisine (APIDRA) 100 units/mL injection Inject 20 Units under the skin 3 time s daily (with meals). irbesartan-hydrochlorothiazide (AVALIDE) 150-12.5 MG per tablet Take 1 tablet by mouth Daily. lactulose 10 g/15 mL solution Take 30 mLs by mouth 2 times daily. 240 mL 3 LORazepam (ATIVAN) 0.5 mg tablet Take 1-2 tablets by mouth Twice daily as needed for A nxiety. 30 tablet 0 LORazepam (ATIVAN) 1 mg tablet Take 0.5-1 tablets by mouth Twice daily as needed for A nxiety. 0 magnesium, as oxide, 250 MG tablet Take 250 mg by mouth Daily. metFORMIN (GLUCOPHAGE) 1000 MG tablet Take 1,000 mg by mouth 2 times daily (with breakf ast & dinner). NOVOLIN N 100 UNIT/ML injection Inject under the skin 3 times daily (before meals). Sl iding scale 3 oxyCODONE (ROXICODONE) 5 mg tablet Take 1-4 tablets by mouth every 4 hours as needed fo r Pain. 120 tablet 0 potassium 99 mg tablet Take 99 mg by mouth Daily. No current facility-administered medications for this visit. REVIEW OF SYSTEMS GENERALLY: No fever, no night sweats, no anemia, no fatigue, no recent profound weight ch anges. EYES: No eye problems, no use of corrective lenses, no eye injury, no double vision, no bl indness. EARS, NOSE, AND THROAT: No changes in taste or smell, no hearing difficulty, no ringing in the ears, no ear drainage, no dizziness, no voice changes, no difficulty swallowing, no sig nificant snoring, no sleep apnea, no sinus problems, no major dental work. NEUROLOGICALLY: Please see the review of systems discussed above in the history of present illness. In addition, the patient has numbness/pain of legs. PSYCHIATRIC: No depression, no sleep disorders, no [...] RHEUMATOLOGIC: No joint arthritis, no rheumatoid arthritis. ALLERGIES: Allergies Allergen Reactions Codeine Other (See [...] use drugs. INTERIM PHYSICAL EXAMINATION: Blood pressure 125/82, pulse 89, resp. rate 18, height 1.93 m (6' 4"), weight 125.2 kg (276 lb). Body mass index is 33.6 kg/m. GENERAL: Lele Mustafa is in no acute distress with unlabored respirations. SPINE: The patient s incisions are healing well without drainage, significant erythema, o r discharge. EXTREMITIES: No lower extremity edema. NEUROLOGICAL EXAMINATION: MENTAL STATUS: The patient is awake, alert, and oriented. He follows simple and complex commands MOTOR EXAM: Motor strength is 4+ leg weakness on the right with dorsiflexion weakness. T SENSORY EXAM: The sensory examination is remarkable RADIOGRAPHIC REVIEW: The patient s x-rays show stable instrumentation and alignment and were reviewed with the patient today. There have been no interval changes since the immediate postoperative films . Complete fusion has not yet occurred, but this is normal and would not be expected at thi s time. There is some subsidence of the interbody spacer at L4-5 but this appears to be sta ble when accounting for the rotational axis between the current x-ray and his previous imagi ng ASSESSMENT: Encounter Diagnoses Name Primary? Lumbar radiculopathy Yes Lumbar facet joint pain S/P lumbar fusion Past Medical History: Diagnosis Date Anxiety Depression Diabetes mellitus (HCC) Diabetes type 2, controlled (HCC) Graves disease Hearing deficit HTN (hypertension) Lumbar facet joint pain Lumbar radiculopathy MRSA (methicillin resistant Staphylococcus aureus) Peroneal neuropathy RLS (restless legs syndrome) Sleep apnea uses CPAP Vision disorder deficit Wears dentures upper PLAN: Overall, the patient is doing okay. The patient can see some improvements but continues to recover from recent surgery. I increased the patient s activities 10 pound weight restriction. He will continue to us e his lumbar brace while he is out of bed I would like the patient to advance slowly with t his process and discussed this at length during today's visit. I would also like the patien t to continue with postoperative rehabilitation and to advance with therapy as tolerated. Currently his primary care provider is managing his medication I am hoping to see improvement over the coming weeks to months and plan to continue to foll ow this patient. The patient will follow-up in clinic in around 8 weeks for re-evaluation. The patient states he's been using ibuprofen. I've written a note for them to discontinue this as anti-inflammatories can interfere with the fusion process ELECTRONICALLY SIGNED BY: Sonido Lund PA-C, 12/08/2016 11:40 documented in this encounter Plan of Treatment Not on filedocumented as of this encounter Results XR Lumbar Spine 2 or 3 Vw (02/08/2017 1:22 PM PDT) + + | Specimen | + + | | + + + + + | Narrative | Performed At | + + + | CLINICAL INFORMATION: Postop. COMPARISON: 12/08/2016. | [facility] | | FINDINGS: AP and lateral views of the lumbosacral spine. | | | Bilateral total hip arthroplasty changes. Posterior pedicle screw | | | and haylee fusion changes at L3-S1 with stable positioning of the | | | interbody graft markers. No evidence of spinal hardware | | | complication. Stable alignment of the lumbar spine. Stable | | | severe degenerative disc disease at the lower thoracic and upper | | | lumbar spine. IMPRESSION - No evidence of interval complication. | | | Dictated and Signed by: Obie Khoury MD Electronically | | | signed: 02/08/2017 3:25 PM | | + + + + + | Procedure Note | + + | Juni Mcintosh Results In - 02/08/2017 3:28 PM PDT | | CLINICAL INFORMATION: Postop. | | | | COMPARISON: 12/08/2016. | | | | FINDINGS: | | AP and lateral views of the lumbosacral spine. | | | | Bilateral total hip arthroplasty changes. | | | | Posterior pedicle screw and haylee fusion changes at L3-S1 with stable positioning | | of the interbody graft markers. No evidence of spinal hardware complication. | | | | Stable alignment of the lumbar spine. Stable severe degenerative disc disease | | at the lower thoracic and upper lumbar spine. | | | | IMPRESSION - No evidence of interval complication. | | | | Dictated and Signed by: Obie Khoury MD | | Electronically signed: 02/08/2017 3:25 PM | + + + +---------+ + [...] | | unspecified | + + | Lumbar facet joint pain Other symptoms referable to back | + + | S/P lumbar fusion Arthrodesis status | + + documented in this encounter
--- OUTSIDE RECORDS SUMMARY | ~2020-02-04 | XMS | Encounter Summary ---
Demographics + + + | Address | [address] | | | [place] [address] | + + + | Home Phone | | + + + | Preferred Language | Unknown | + + + | Marital Status | | + + + | Alevism Affiliation | 1013 | + + + | Race | White | + + + | Ethnic Group | Not or | + + + Author + + + | Author | [facility] | | | and [place] | + + + | Organization | [facility] | | | and [...] [place] | | | | | [address] | | + + + + + | Leslie Lentz | ECON | Unknown | | + + + + + Care Team Providers + +------+ + | Care District Fire Chief Name | Role | Phone | + +------+ + | Aggie Dunn NP | PCP | | + +------+ + Encounter Details +--------+ + + + + | Date | Type | Department | Care Team | Description | +--------+ + + + + | 02/06/ | Orders Only | [facility] | Conversion | | | 2017 | | INFECTIOUS DISEASE | Transaction, | | | | | [address] [facility] | Provider Unknown | | | | | [place], [place] | [phone] | | | | | [address] | | | | | | [phone] | | | +--------+ + + + [...] | EXTERNAL LAB: CBC | Routin | 02/06/2018 | | Results for this | | | e | 12:00 AM | | procedure are in the | | | | PDT | | results section. | + +--------+ + + + | SEDIMENTATION RATE, | Routin | 02/06/2018 | | Results for this | | AUTOMATED | e | 12:00 AM | | procedure are in the | | | | PDT | | results section. | + +--------+ + + + | C-REACTIVE PROTEIN | Routin | 02/06/2018 | | Results for this | | | e | 12:00 AM | | procedure are in the | | | | PDT | | results section. | + +--------+ + + + | COMPREHENSIVE | Routin | 02/06/2018 | | Results for this | | METABOLIC PANEL | e | 12:00 AM | | procedure are in the | | | | PDT | | results section. | + +--------+ + + + | EGFR | Routin | 02/04/2018 | | Results for this | | | e | 12:00 AM | | procedure are in the | | | | PDT | | results section. | + +--------+ + + + | BUN | Routin | 02/04/2018 | | Results for this | | | e | 12:00 AM | | procedure are in the | | | | PDT | | results section. | + +--------+ + + + | CREATININE | Routin | 02/04/2018 | | Results for this | | | e | 12:00 AM | | procedure are in the | | | | PDT | | results section. | + +--------+ + + + | KIERRA TROUGH | Routin | 02/04/2018 | | Results for this | | | e | 12:00 AM | | procedure are in the | | | | PDT | | results section. | + +--------+ + + + | EGFR | Routin | 02/01/2018 | | Results for this | | | e | 12:00 AM | | procedure are in the | | | | PDT | | results section. | + +--------+ + + + | BUN | Routin | 02/01/2018 | | Results for this | | | e | 12:00 AM | | procedure are in the | | | | PDT | | results section. | + +--------+ + + + | CREATININE | Routin | 02/01/2018 | | Results for this | | | e | 12:00 AM | | procedure are in the | | | | PDT | | results section. | + +--------+ + + + | KIERRA TROUGH | Routin | 02/01/2018 | | Results for this | | | e | 12:00 AM | | procedure are in the | | | | PDT | | results section. | + +--------+ + + + documented in this encounter Results Sedimentation rate, automated (02/06/2018 12:00 AM PDT) + +-------+ + + + | Component | Value | Ref Range | Performed | Pathologist | | | | | At | Signature | + +-------+ + + + | Sed Rate | 3 | 0 - 15 | EXTERNAL | | | | | | LAB | | + +-------+ + + + + + | Specimen | + + | Blood specimen | | (specimen) | + + + +---------+ + + | Performing | Address | City/State/Zipcode | Phone Number | | Organization | | | | + +---------+ + + | EXTERNAL LAB | | | | + +---------+ + + External Lab: CBC (02/06/2018 12:00 AM PDT) + + + + + + | Component | Value | Ref Range | Performed | Pathologist | | | | | At | Signature | + + + + + + | WBC | 4.7 | 10 | EXTERNAL | | | | | | LAB | | + + + + + + | Non- | 4.6 | 10 | EXTERNAL | | | Red Blood | | | LAB | | | Cells | | | | | | Counted | | | | | + + + + + + | Hemoglobin | 14.1 | g/dL | EXTERNAL | | | | | | LAB | | + + + + + + | Hematocrit, | 42.0 | % | EXTERNAL | | | POC | | | LAB | | + + + + + + | MCV | 91.4 | fL | EXTERNAL | | | | | | LAB | | + + + + + + | MCH | 30.7 | pg | EXTERNAL | | | | | | LAB | | + + + + + + | MCHC | 33.6 | g/dL | EXTERNAL | | | | | | LAB | | + + + + + + | Platelet | 123 (A) | 150 - 450 K/ L | EXTERNAL | | | Count | | | LAB | | | Plasma | | | | | + + + + + + | RDW-CV | 13.6 | % | EXTERNAL | | | | | | LAB | | + + + + + + | MPV | | fL | EXTERNAL | | | | | | LAB | | + + + + + + | Differentia | | | EXTERNAL | | | l Type | | | LAB | | + + + + + + | % Segmented | 73.9 (A) | 40 - 70 % | EXTERNAL | | | | | | LAB | | | Neutrophils | | | | | + + + + + + | % | 13.7 (A) | 25 - 45 % | EXTERNAL | | | Lymphocytes | | | LAB | | + + + + + + | % Monocytes | 8.0 | % | EXTERNAL | | | | | | LAB | | + + + + + + | % | 3.5 (A) | 0 - 3 % | EXTERNAL | | | Eosinophils | | | LAB | | + + + + + + | % Basophils | 0.9 | % | EXTERNAL | | | | | | LAB | | + + + + + + | Absolute | 3.4 | / L | EXTERNAL | | | Segmented | | | LAB | | | Neutrophils | | | | | + + + + + + | Absolute | 0.6 (A) | 1.0 - 4.8 / L | EXTERNAL | | | Lymphocytes | | | LAB | | + + + + + + | Absolute | 0.4 | / L | EXTERNAL | | | Monocytes | | | LAB | | + + + + + + | Absolute | 0.2 | / L | EXTERNAL | | | Eosinophils | | | LAB | | + + + + + + | Absolute | 0.0 | / L | EXTERNAL | | | Basophils | | | LAB | | + + + + + + + + | Specimen | + + | Blood specimen | | (specimen) | + + + +---------+ + + | Performing | Address | City/State/Zipcode | Phone Number | | Organization | | | | + +---------+ + + | EXTERNAL LAB | | | | + +---------+ + + C-Reactive Protein (02/06/2018 12:00 AM PDT) + +-------+ + + + | Component | Value | Ref Range | Performed | Pathologist | | | | | At | Signature | + +-------+ + + + | CRP | 1.2 | 0.1 - 8.2 mg/dL | EXTERNAL | | | | | | LAB | | + +-------+ + + + + + | Specimen | + + | Blood specimen | | (specimen) | + + + +---------+ + + | Performing | Address | City/State/Zipcode | Phone Number | | Organization | | | | + +---------+ + + | EXTERNAL LAB | | | | + +---------+ + + Comprehensive Metabolic Panel (02/06/2018 12:00 AM PDT) + +---------+ + + + | Component | Value | Ref Range | Performed | Pathologist | | | | | At | Signature | + +---------+ + + + | Glucose, | 423 (A) | 84 - 110 mg/dL | EXTERNAL | | | Fasting | | | LAB | | + +---------+ + + + | BUN | 22 (A) | 8.4 - 21 mg/dL | EXTERNAL | | | | | | LAB | | + +---------+ + + + | Creatinine | 0.94 | mg/dL | EXTERNAL | | | | | | LAB | | + +---------+ + + + | BUN/Creatin | | | EXTERNAL | | | ine Ratio | | | LAB | | + +---------+ + + + | Calcium | 9.4 | mg/dL | EXTERNAL | | | | | | LAB | | + +---------+ + + + | Protein, | 6.9 | g/dL | EXTERNAL | | | Total | | | LAB | | + +---------+ + + + | Albumin | 4.0 | | EXTERNAL | | | | | | LAB | | + +---------+ + + + | Globulin | 2.9 | | EXTERNAL | | | | | | LAB | | + +---------+ + + + | A/G Ratio | 1.4 | | EXTERNAL | | | | | | LAB | | + +---------+ + + + | Bilirubin | 0.9 | mg/dL | EXTERNAL | | | Total | | | LAB | | + +---------+ + + + | ALP, | 101 | | EXTERNAL | | | External | | | LAB | | + +---------+ + + + | ALT | 18 | U/L | EXTERNAL | | | | | | LAB | | + +---------+ + + + | AST | 12 | U/L | EXTERNAL | | | | | | LAB | | + +---------+ + + + | Na | 137 | mmol/L | EXTERNAL | | | | | | LAB | | + +---------+ + + + | K | 3.8 | mmol/L | EXTERNAL | | | | | | LAB | | + +---------+ + + + | Cl | 101 | mmol/L | EXTERNAL | | | | | | LAB | | + +---------+ + + + | CO2 | 25 | mmol/L | EXTERNAL | | | | | | LAB | | + +---------+ + + + | Anion Gap | 11.0 | mmol/L | EXTERNAL | | | | | | LAB | | + +---------+ + + + | Estimated | 60 | mg/dL | EXTERNAL | | | GFR | | | LAB | | + +---------+ + + + + + | Specimen | + + | Blood specimen | | (specimen) | + + + +---------+ + + | Performing | Address | City/State/Zipcode | Phone Number | | Organization | | | | + +---------+ + + | EXTERNAL LAB | | | | + +---------+ + + EGFR (02/04/2018 12:00 AM PDT) + + | Specimen | + + | | + + + + + | Impressions | Performed At | + + + | GFR Estimated Result: >60 Reference: 60-140 mL/min | EXTERNAL LAB | + + + + +---------+ + + | Performing | Address | City/State/Zipcode | Phone Number | | Organization | | | | + +---------+ + + | EXTERNAL LAB | | | | + +---------+ + + BUN (02/04/2018 12:00 AM PDT) + +-------+ + + + | Component | Value | Ref Range | Performed | Pathologist | | | | | At | Signature | + +-------+ + + + | BUN | 19 | 8.4 - 21 mg/dL | EXTERNAL | | | | | | LAB | | + +-------+ + + + + + | Specimen | + + | Blood specimen | | (specimen) | + + + +---------+ + + | Performing | Address | City/State/Zipcode | Phone Number | | Organization | | | | + +---------+ + + | EXTERNAL LAB | | | | + +---------+ + + Creatinine (02/04/2018 12:00 AM PDT) + +-------+ + + + | Component | Value | Ref Range | Performed | Pathologist | | | | | At | Signature | + +-------+ + + + | Creatinine | 0.82 | 0.64 - 1.27 | EXTERNAL | | | | | mg/dL | LAB | | + +-------+ + + + + + | Specimen | + + | Blood specimen | | (specimen) | + + + +---------+ + + | Performing | Address | City/State/Zipcode | Phone Number | | Organization | | | | + +---------+ + + | EXTERNAL LAB | | | | + +---------+ + + Vancomycin, Trough (02/04/2018 12:00 AM PDT) + +-------+ + + + | Component | Value | Ref Range | Performed | Pathologist | | | | | At | Signature | + +-------+ + + + | Vancomycin | 16.1 | 10 - 20 | EXTERNAL | | | Trough | | | LAB | | + +-------+ + + + + + | Specimen | + + | Blood specimen | | (specimen) | + + + + + | Impressions | Performed At | + + + | Date of last dose: 02/03/18 Time of last dose: 1730 | EXTERNAL LAB | + + + + +---------+ + + | Performing | Address | City/State/Zipcode | Phone Number | | Organization | | | | + +---------+ + + | EXTERNAL LAB | | | | + +---------+ + + EGFR (02/01/2018 12:00 AM PDT) + + | Specimen | + + | Blood specimen | | (specimen) | + + + + + | Impressions | Performed At | + + + | GFR Estimated Result: >60 Reference: 60-140 mL/min | EXTERNAL LAB | + + + + +---------+ + + | Performing | Address | City/State/Zipcode | Phone Number | | Organization | | | | + +---------+ + + | EXTERNAL LAB | | | | + +---------+ + + BUN (02/01/2018 12:00 AM PDT) + +--------+ + + + | Component | Value | Ref Range | Performed | Pathologist | | | | | At | Signature | + +--------+ + + + | BUN | 25 (A) | 8.4 - 21 mg/dL | EXTERNAL | | | | | | LAB | | + +--------+ + + + + + | Specimen | + + | Blood specimen | | (specimen) | + + + +---------+ + + | Performing | Address | City/State/Zipcode | Phone Number | | Organization | | | | + +---------+ + + | EXTERNAL LAB | | | | + +---------+ + + Creatinine (02/01/2018 12:00 AM PDT) + +-------+ + + + | Component | Value | Ref Range | Performed | Pathologist | | | | | At | Signature | + +-------+ + + + | Creatinine | 0.95 | 0.64 - 1.27 | EXTERNAL | | | | | mg/dL | LAB | | + +-------+ + + + + + | Specimen | + + | Blood specimen | | (specimen) | + + + +---------+ + + | Performing | Address | City/State/Zipcode | Phone Number | | Organization | | | | + +---------+ + + | EXTERNAL LAB | | | | + +---------+ + + Vancomycin, Trough (02/01/2018 12:00 AM PDT) + +-------+ + + + | Component | Value | Ref Range | Performed | Pathologist | | | | | At | Signature | + +-------+ + + + | Vancomycin | 16.7 | 10 - 20 | EXTERNAL | | | Trough | | | LAB | | + +-------+ + + + [...]
--- OUTSIDE RECORDS SUMMARY | ~2020-02-04 | XMS | Encounter Summary ---
Demographics + + + | Address | [address] | | | [place] [address] | + + + | Home Phone | | + + + | Preferred Language | Unknown | + + + | Marital Status | | + + + | Protestant Affiliation | 1013 | + + + | Race | White | + + + | Ethnic Group | Not or | + + + Author + + + | Author | [facility] | | | and [place] | + + + | Organization | [facility] | | | [...] [place] | | | | | [address] | | + + + + + | Leslie Lentz | ECON | Unknown | | + + + + + Care Team Providers + +------+ + | Care High Energy Forming Equipment Operator Name | Role | Phone | + +------+ + | Paulo Rothman MD | PCP | | + +------+ + Reason for Referral Service/Procedure (Routine) +--------+--------+ + + + + | Status | Reason | Specialty | Diagnoses / | Referred By | Referred To | | | | | Procedures | Contact | Contact | +--------+--------+ + + + + | Closed | | Infusion | Diagnoses | Kayla, | [facility] | | | | Clinic | | Sonia | [facility] | | | | | Postoperativ | [address] | MEDICAL | | | | | e wound | [address] | | | | | infection, | [address] | [address] | | | | | sequela | [address] | [place] | | | | | Type 2 | [address] | [address] | | | | | diabetes | [place], | Phone: | | | | | mellitus | [place] [address] | [phone] | | | | | with | Phone: | Fax: | | | | | complication | [phone] | [phone] | | | | | , | Fax: | | | | | | unspecified | [phone] | | | | | | whether long | | | | | | | term | | | | | | | insulin use | | | | | | | History of | | | | | | | methicillin | | | | | | | resistant | | | | | | | staphylococc | | | | | | | us aureus | | | | | | | (MRSA) | | | | | | | Procedures | | | | | | | CO | | | | | | | VANCOMYCIN | | | | | | | HCL | | | | | | | INJECTION, | | | | | | | 500 MG CO | | | | | | | IV INFUSION, | | | | | | | | | | | | | | THERAP/PROPH | | | | | | | /DIAGNOST,IN | | | | | | | ITIAL,1ST | | | | | | | HOUR CO IV | | | | | | | INFUSION, | | | | | | | THERAP/PROPH | | | | | | | /DIAGNOST,IN | | | | | | | ITIAL,EA ADD | | | | | | | HOUR | | | +--------+--------+ + + + + Encounter Details +--------+ + + + + | Date | Type | Department | Care Team | Description | +--------+ + + + + | 01/04/ | Orders Only | [facility] | Sonia Garza | Postoperative wound | | 2018 | | NEUROSURGERY [address] | [address] | infection, sequela | | | | [address] | [facility] | (Primary Dx); Type 2 | | | | [place], [place] | [address] [place], [place] | diabetes mellitus | | | | [address] | [address] | with complication, | | | | [phone] | | unspecified whether | | | | | | 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 | | | | | | use (HCC); History | | | | | | of methicillin | | | | | | resistant | | | | | | staphylococcus | | | | | | aureus (MRSA) | +--------+ + + + + Social [...] as of this encounter Plan of Treatment + + +--------+ + + | Name | Type | Priori | Associated Diagnoses | Order Schedule | | | | ty | | | + + +--------+ + + | Infusion, External - | Outpatient | Routin | Postoperative | Ordered: 01/04/2018 | | AMB Referral | Referral | e | wound infection, | | | | | | sequela Type 2 | | | | | | diabetes mellitus | | | | | | with complication, | | | | | | unspecified whether | | | | | | [facility] insulin | | | | | | use (HCC) History | | | | | | of methicillin | | | | | | resistant | | | | | | staphylococcus | | | | | | aureus (MRSA) | | + + +--------+ + + documented as of this encounter Visit Diagnoses + + | Diagnosis | + + | Postoperative wound infection, sequela - Primary | + + | Type 2 diabetes mellitus with complication, unspecified whether 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
--- OUTSIDE RECORDS SUMMARY | ~2020-02-04 | XMS | Encounter Summary ---
Demographics + + + | Address | [address] | | | [place] [address] | + + + | Home Phone | | + + + | Preferred Language | Unknown | + + + | Marital Status | | + + + | Restoration Affiliation | 1013 | + + + [...] [place] | | | | | [address] | | + + + + + | Leslie Lentz | ECON | Unknown | | + + + + + Care Team Providers + +------+ + | Care Group Home Manager Name | Role | Phone | [...] Description | +--------+---------+ + + + | 01/12/ | Office | [facility] | Sonia Garza | S/P lumbar fusion | | 2018 | Visit | NEUROSURGERY [address] | [address] | (Primary Dx); Right | | | | [facility] | [facility] | foot drop | | | | [place] | [address] [place] | | | | | [address] | [address] | | | | | [phone] | | | +--------+---------+ + + + [...] + + + | Blood Pressure | 135/86 | 01/12/2018 11:30 AM | | | | | PDT | | + + + + + | Pulse | 87 | 01/12/2018 11:30 AM | | | | | PDT | | + + + + + | Temperature | - | - | | + + + + + | Respiratory Rate | 16 | 01/12/2018 11:30 AM | | | | | PDT | | + + + + + | Oxygen Saturation | - | - | | + + + + + | Inhaled Oxygen | - | - | | | Concentration | | | | + + + + + | Weight | 127 kg (280 lb) | 01/12/2018 11:30 AM | | | | | PDT | | + + + + + | Height | 193 cm (6' 4") | 01/12/2018 11:30 AM | | | | | PDT | | + + + + + | Body Mass Index | 34.08 | 01/12/2018 11:30 AM | | | | | PDT [...] of this encounter Patient Instructions Patient Instructions Franchesca Quintero, Performance Improvement Consultant - 01/12/2018 11:00 AM PDTPlease do no t take any Ibuprofen, Advil, Aleve, Naproxen or any other kind of NSAID. These can slow down /hinder the bone regrowth. We want to make sure your fusion fuses back together nicely. You can take Tylenol as directed. 4 WEEK LUMBAR POST-OP INSTRUCTIONS: You may now slowly increase your lifting up to 15 pounds as tolerated. You may now reach ov erhead but it should only be 1-2 pounds. Please refrain from twisting for the next 8 weeks. In the meantime, you can also begin to wean out of your brace as instructed below. SPINE BRACE WEANING PROTOCOL (5 WEEKS) Below are instructions for weaning your brace. You can move through the weeks slower if yo u feel the need to do so, but the overall goal is to get you out of the brace slowly over th e next several weeks. IN THE NEXT 4 WEEKS If you have been using your brace for activities like sleeping, showering, do not use the b race for these activities any longer but continue using it for everything else. WEEK 5 Stop wearing your brace for sitting and short distance walking. You should use the brace f or anything more involved. WEEK 6 Stop using the brace for medium distance walking. You can bend and twist your back but sti ll proceed slowly with these activities. WEEK 7 Stop using the brace for everything but the most difficult tasks. You should now be able to go on long walks and lift more weight as directed. Add more bending and twisting as tolera ivan. WEEK 8 Stop using the brace for daily use. I would encourage you to use the brace in the future f or activities that you know might aggravate your back or cause pain. You should still work to strengthen your back and use good technique when bean picker things and bending. documented in this encounter Progress Notes Sonia Garza PA-C - 01/12/2018 11:00 AM PDTFormatting of this note might be diffe rent from the original. Benton Garza PA-C [address] [facility], [address] [place], [place] [address] FAX: [phone] NEUROSURGERY FOLLOW-UP CHIEF COMPLAINT: Chief Complaint Patient presents with Post Op 4w PO HISTORY OF PRESENT ILLNESS: The patient is a 57 y.o. male that had a lumbar fusion for raheem k and leg pain on 12/15/2017. He returns and overall is doing okay. The patient states his pain severity has decreased since pre operative. His pain level with pain medication is a 5/ 10. The patient has been walking as much as directed. He is still taking pain medications at this point. The patient has had some issues with his surgical site. He was readmitted after initial surgical discharge for posterior seroma aspiration and a small area of anterior wou nd dehiscence. He has been on a PICC line with out patient vancomycin BID since then. Patient returned on 01/10/18 in the clinic for wound evaluation prior Dr. Gillespie expressed a la rge amount of serosanguinous fluid from left back incision. 2 open areas of incision with ad ipose tissue exposed. Dr. Gillespie ordering dressing changes to be done BID to be completed by [facility] in addition to the abdominal dressing change. CURRENT MEDICATIONS: Current Outpatient Prescriptions Medication Sig [...] tablet Take 99 mg by mouth Daily. vancomycin IVPB 1.5 g Inject 1.5 g [...] use drugs. INTERIM PHYSICAL EXAMINATION: Blood pressure 135/86, pulse 87, resp. rate 16, height 1.93 m (6' 4"), weight 127 kg (280 l b). Body mass index is 34.08 kg/m. REVIEW OF SYSTEMS GENERALLY: No fever, no [...] of present illness. PSYCHIATRIC: No depression, no sleep disorders, no [...] RHEUMATOLOGIC: No joint arthritis, no rheumatoid arthritis. GENERAL: Fredis Mustafa is in no acute distress with unlabored respirations. SPINE: The patient s Incisions continue to be addressed by wound care. Posterior dehisce nce is stable with continued mild drainage. No signs of infection in the posterior or anter ior wounds. EXTREMITIES: No lower extremity edema. NEUROLOGICAL EXAMINATION: [...] not be expected at thi s time. ASSESSMENT: Encounter Diagnosis Name Primary? S/P lumbar fusion Yes Past Medical History: Diagnosis Date Anxiety Depression [...] day with wound care twice a day fo r wound dehiscence. Today's evaluation shows stable posterior dehiscence with improving ant erior dehiscence. There is no sign of infection or need for culture and sensitivity today. We may consider putting a nylon stitch in the upper posterior dehiscence region if drainage resolves in the future. Patient will discuss this with his wound care provider and call us with any concerns. We discussed increasing the patient s activities now allowing 15 pound lifting. The leslie ent will begin the process of brace weaning as directed. They should continue regular exerc ise and strengthening with the hope that they can avoid additional surgery. We provided and additonal prescription today to help with weaning of pain medication but fu ture medications or extended weaning will need to be done with a pain specialist or their pr imary care. We are hoping to see improvement over the coming weeks to months and plan to continue to fo llow this patient. The patient will follow-up in clinic in around 8 weeks for re-evaluation . I, Sonia Garza PA-C, personally performed the services described in this document ation, as scribed by SHEA Acevedo in my presence, and it is both accurate and complete . Benton Garza PA-C 01/12/18 ELECTRONICALLY SIGNED BY: Benton Garaz PA-C, 01/12/2018 11:49 documented in this encounter Plan of Treatment Not on filedocumented as of this encounter Results XR Lumbar Spine 2 or 3 Vw (03/14/2018 12:16 PM PST) + + | Specimen | + + | | + + + + + | Narrative | Performed At | + + + | TWO VIEWS LUMBAR SPINE 03/14/2018 12:16 PM CLINICAL HISTORY: | [facility] | | Postop COMPARISON: RADIOGRAPHS FEBRUARY 07 AND MORE REMOTE IMAGING | | | FINDINGS: Five non rib-bearing, lumbar type vertebrae are visible. | | | Rightward lumbar curvature persists. Interbody and posterior haylee | | | and pedicle screw fusion hardware again extends from L4 through the | | | norris and SI joints and appears stable and intact, along with anterior | | | plate and screw hardware at L5-S1. An interbody prosthesis and | | | solid interbody osseous bridging of the disc space persist at L3-4. | | | There is similar subsidence of the superior L5 endplate. Severe | | | degenerative disc disease, spondylosis and mild retrolisthesis persist | | | at T12-L1 and L1-2, and mild retrolisthesis is again evident at L2-3 | | | and L3-4. Mild anterolisthesis persists at L4-5 and L5-S1. | | | Bilateral total hip arthroplasty hardware is again partially | | | imaged. Cholecystectomy clips are suggested. IMPRESSION - 1. | | | STABLE CHANGES OF OPERATIVE FUSION EXTENDING FROM L3 THROUGH THE | | | NORRIS AND SI JOINTS DESCRIBED. Dictated and Signed by: Markel Caballero MD Electronically signed: 03/14/2018 3:05 PM | | + + + + + | Procedure Note | + + | Arnaldo, Rad Results In - 03/14/2018 3:08 PM PST TWO VIEWS LUMBAR SPINE 03/14/2018 12:16 | | PMCLINICAL HISTORY: PostopCOMPARISON: RADIOGRAPHS FEBRUARY 07 AND MORE REMOTE | | IMAGINGFINDINGS: Five non rib-bearing, lumbar type vertebrae are visible. | | Rightwardlumbar curvature persists. Interbody and posterior haylee and pedicle screw | | fusionhardware again extends from L4 through the norris and SI joints and appears | | stableand intact, along with anterior plate and screw hardware at L5-S1. An | | interbodyprosthesis and solid interbody osseous bridging of the disc space persist | | atL3-4. There is similar subsidence of the superior L5 endplate. Severedegenerative | | disc disease, spondylosis and mild retrolisthesis persist at [id number] L1-2, and mild | | retrolisthesis is again evident at L2-3 and L3-4. Mildanterolisthesis persists at L4-5 | | and L5-S1. Bilateral total hip arthroplastyhardware is again partially imaged. | | Cholecystectomy clips are suggested.IMPRESSION -1. STABLE CHANGES OF OPERATIVE FUSION | | EXTENDING FROM L3 THROUGH THE NORRIS ANDSI JOINTS DESCRIBED.Dictated and Signed by: | | Markel Caballero MD Electronically signed: 03/14/2018 3:05 PM | |anterolisthesis persists at L4-5 and L5-S1. Bilateral total hip arthroplasty | |hardware is again partially imaged. Cholecystectomy clips are suggested. | | | |IMPRESSION - | | | |1. STABLE CHANGES OF OPERATIVE FUSION EXTENDING FROM L3 THROUGH THE NORRIS AND | |SI JOINTS DESCRIBED. | | | |Dictated and Signed by: Markel Caballero MD | | Electronically signed: 03/14/2018 3:05 PM | + + + +---------+ + [...] Arthrodesis status | + + | Right foot drop Other acquired deformity of ankle and foot | + + documented in this encounter
--- OUTSIDE RECORDS SUMMARY | ~2020-02-04 | XMS | Encounter Summary ---
Demographics + + + | Address | [address] | | | [place] [address] | + + + | Home Phone | | + + + | Preferred Language | Unknown | + + + | Marital Status | | + + + | Yazdanism Affiliation | CHR | + + + | Race | White | + + + | Ethnic Group | Not or | + + + Author + + + | Author | [facility] | + + + | Organization | [facility] | + + + | Address | Unknown | + + + | Phone | Unavailable | + + + Support + + +---------+ + | Name | Relationship | Address | Phone | + + +---------+ + | Leslie Lentz | ECON | Unknown | | + + +---------+ + Care Team Providers + +------+ + | Care Tobacco Warehouse Agent Name | Role | Phone | + +------+ + | Aggie Dunn SHYANN | PCP | | + +------+ + Encounter Details +--------+ + + + + | Date | Type | Department | Care Team | Description | +--------+ + + + + | 12/06/ | Pharmacy | Outpatient Retail | | | | 2019 | Visit | [facility] | | | | | | [address] | | | | | | [address] [place], [place] | | | | | | [address] | | | | | | [phone] | | | +--------+ + + + [...] in contact | No / Unsure | 12/08/2019 8:32 AM | | with someone who was confirmed or | | PDT | | suspected to have Coronavirus / COVID-19? | | | + + + + documented as of this encounter Plan of Treatment Not on filedocumented as of this encounter Visit Diagnoses Not on filedocumented in this encounter"
--- OUTSIDE RECORDS SUMMARY | ~2020-02-04 | XMS | Encounter Summary ---
Demographics + + + | Address | [address] | | | [place] [address] | + + + | Home Phone | | + + + | Preferred Language | Unknown | + + + | Marital Status | | + + + | Tenriism Affiliation | 1013 | + + + | Race | White | + + + | Ethnic Group | Not or | + + + Author + + + | Author | [facility] | | | and [place] | + + + | Organization | [facility] | [...] [place] | | | | | [address] | | + + + + + | Leslie Lentz | ECON | Unknown | | + + + + + Care Team Providers + +------+ + | Care Manager Bakery Name | Role | Phone | + +------+ + | Paulo Rothman MD | PCP | | + +------+ + Encounter Details +--------+ + + + + | Date | Type | Department | Care Team | Description | +--------+ + + + + | 11/24/ | Episode | [facility] [place] | Jacqueline Doan, | | | 2018 | Changes | NEUROSURGERY [address] | WRAPPER STITCHER | | | | | [address] | | | | | | [place] | | | | | | [address] | | | | | | [phone] | | | +--------+ + + + [...]
--- OUTSIDE RECORDS SUMMARY | ~2020-02-04 | XMS | Encounter Summary ---
Demographics + + + | Address | [address] | | | [place] [address] | + + + | Home Phone | | + + + | Preferred Language | Unknown | + + + | Marital Status | | + + + | Christianity Affiliation | 1013 | + + + | Race | White | + + + | Ethnic Group | Not or | + + + Author + + + | Author | [facility] | | | and [place] | + + + | Organization | [facility] | | | [...] [place] | | | | | [address] | | + + + + + | Leslie Lentz | ECON | Unknown | | + + + + + Care Team Providers + +------+ + | Care Drapery And Upholstery Measurer Name | Role | Phone | + +------+ + PCP | Unavailable | + +------+ + Encounter Details +--------+ + + + + | Date | Type | Department | Care Team | Description | +--------+ + + + + | 10/20/ | Hospital | [facility] | Kai Gillespie MD | Essential | | 2017 | Encounter | MED CTR XRAY [address] | [address] | hypertension; | | | | [place] | [place] [address] | Diabetes mellitus of | | | | [place] [address] | [phone] | other type with | | | | [phone] | | complication, | | | | | Shiva Issa MD | unspecified long | | | | | [address] [facility] | term insulin use | | | | | [place] | status ([facility]); Lumbar | | | | | [address] | facet joint pain; | | | | | | Lumbar | | | | | | radiculopathy; MRSA | | | | | | (methicillin | | | | | | resistant | | | | | | Staphylococcus | | | | | | aureus) | +--------+ + + + + Social [...] +---------+ + + | cyclobenzaprine | Take 10 mg by mouth | | 11 | 09/22/19 | | | (FLEXERIL) 10 mg | every 6 hours as | | | 17 | 7 | | tablet | needed. | | | | | + + + +---------+ + + | gabapentin | Take 300-600 mg by | | 0 | 01/22/20 | | | (NEURONTIN) 300 mg | mouth 3 times daily. | | | 16 | 7 | | capsule | | | | | | + + + +---------+ + + | | Take 1 tablet by | | 0 | 01/23/20 | | | HYDROcodone-acetamin | mouth every 8 hours | | | 16 | 7 | | ophen (NORCO) 10-325 | as needed for Pain. | | | | | | mg per tablet | | | | | | + + + +---------+ + + | ibuprofen | Take 600 mg by mouth | | 0 | 01/27/20 | | | (ADVIL,MOTRIN) 600 | 2 times daily. | | | 16 | 7 | | MG tablet | | | [...] + + + +---------+ + + | methocarbamol | Take 750 mg by mouth | | 0 | | | | (ROBAXIN) 750 mg | 3 times daily. | | | | 7 | | tablet | | | | [...] +---------+ + + | traMADol (ULTRAM) | Take 50-100 mg by | | 0 | 02/04/20 | | | 50 mg tablet | mouth every 6 hours | | | 16 | 7 | | | as needed for Pain. | | [...] + +--------+ + + + | XR CHEST 2 VIEWS | Routin | 10/20/2016 | Essential | Results for this | | | e | 5:18 PM | hypertension | procedure are in the | | | | PDT | Diabetes mellitus of | results section. | | | | | other type with | | | | | | complication, | | | | | | unspecified long | | | | | | term insulin use | | | | | | status (HCC) Lumbar | | | | | | facet joint pain | | | | | | Lumbar radiculopathy | | | | | | MRSA (methicillin | | | | | | resistant | | | | | | Staphylococcus | | | | | | aureus) | | + +--------+ + + + documented in this encounter Results XR Chest 2 VW (10/20/2016 5:18 PM PDT) + + | Specimen | + + | | + + + + + | Narrative | Performed At | + + + | XR CHEST 2 VW 10/20/2016 5:18 PM HISTORY: Pre op. COMPARISON: | [facility] | | None. Findings: Heart size is within normal limits. Aorta is | [facility] | | normal. Mediastinum is unremarkable. Central pulmonary vasculature is | [facility] | | normal. Moderate scarring is in the right middle lung lobe. The left | - IMAGING | | lung is clear. Moderate elevation of the right hemidiaphragm is | | | observed. Fusion hardware is in the cervical spine. There is mild | | | right curvature of the thoracic spine along with minimal spondylosis. | | | IMPRESSION - No acute findings. Dictated and Signed by: Neri | | | MD Zane Electronically signed: 10/20/2016 5:56 PM | | + + + + + | Procedure Note | + + | Arnaldo, Rad Results In - 10/20/2016 5:59 PM PDT XR CHEST 2 VW 10/20/2016 5:18 PM | | | | HISTORY: Pre op. | | | | COMPARISON: None. | | | | Findings: | | Heart size is within normal limits. Aorta is normal. Mediastinum is | | unremarkable. Central pulmonary vasculature is normal. Moderate scarring is in | | the right middle lung lobe. The left lung is clear. Moderate elevation of the | | right hemidiaphragm is observed. Fusion hardware is in the cervical spine. There | | is mild right curvature of the thoracic spine along with minimal spondylosis. | | | | IMPRESSION - | | No acute findings. | | | | Dictated and Signed by: Neri Degroot MD | | Electronically signed: 10/20/2016 5:56 PM | + + + + + + + | Performing | Address | City/State/Zipcode | Phone Number | | Organization | | | | + + + + + | [address] | [address] 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
--- OUTSIDE RECORDS SUMMARY | ~2020-02-04 | XMS | Encounter Summary ---
Demographics + + + | Address | [address] | | | [place] [address] | + + + | Home Phone | | + + + | Preferred Language | Unknown | + + + | Marital Status | | + + + | Episcopalian Affiliation | 1013 | + + + | Race | White | + + + | Ethnic Group | Not or | + + + Author + + + | Author | [facility] | | | and [place] | + + + | Organization | [facility] | | | [...] [place] | | | | | [address] | | + + + + + | Leslie Lentz | ECON | Unknown | | + + + + + Care Team Providers + +------+ + | Care Director Oracle Database Name | Role | Phone | + +------+ + | Aggie Dunn NP | PCP | | + +------+ + Reason for Referral Evaluate & Treat (Routine) +--------+ + + + + + | Status | Reason | Specialty | Diagnoses / | Referred By | Referred To | | | | | Procedures | Contact | Contact | +--------+ + + + + + | Closed | Specialty | Physical | Diagnoses | Sucharda, | GOOD | | | Services | Therapy | S/P lumbar | Jorge E, | ABRAHAM | | | Required | | fusion | PA-C [address] | PHYSICAL | | | | | Hardware | [address] | THERAPY - | | | | | complicating | [address] | [place] | | | | | wound | [place], | [address] | | | | | infection, | [place] [address] | [address] | | | | | subsequent | Phone: | [place], [place] | | | | | encounter | [phone] | [address] | | | | | GSH - PT | Fax: | Phone: | | | | | Procedures | [phone] | [phone] | | | | | Referral | | Fax: | | | | | rec. 02/16 | | [phone] | | | | | waiting till | | | | | | | 02/27 to | | | | | | | schedule | | | | | | | HIM 02/09 | | | +--------+ + + + + + Reason for Visit + + + | Reason | Comments | + + + | Follow-up | | + + + | Wound Check | | + + + Encounter Details +--------+---------+ + + + | Date | Type | Department | Care Team | Description | +--------+---------+ + + + | 02/07/ | Office | [facility] | Jorge Mulligan, | S/P lumbar fusion | | 2018 | Visit | NEUROSURGERY [address] | PA-C [address] | (Primary Dx); | | | | [address] | [address] [place] | Hardware | | | | [place] | [place] [address] | complicating wound | | | | [address] | [phone] | infection, | | | | [phone] | | subsequent encounter | +--------+---------+ + + + Social History [...] + + + | Blood Pressure | 131/81 | 02/07/2018 2:40 PM | | | | | PDT | | + + + + + | Pulse | 90 | 02/07/2018 2:40 PM | | | | | PDT [...] + + + + | Weight | 123.4 kg (272 lb) | 02/07/2018 2:40 PM | | | | | PDT | | + + + + + | Height | 193 cm (6' 4") | 02/07/2018 2:40 PM | | | | | PDT | | + + + + + | Body Mass Index | 33.11 | 02/07/2018 2:40 PM | | | | | PDT [...] encounter Patient Instructions Patient Instructions Renée Treviño, Engineer Systems - 02/07/2018 2:00 PM PDTIt was a pleasure to see you today. Here is what we discussed. Talk with your letter of credit clerk about seeing if you do need the glucagon kit in case of gennaro gency. Work with your infectious disease doctor in regards to the antibiotics. We will have you follow up in about a month for your 3 month post op appointment with x-ray s prior. It is going to be very important for you to work on your core strength. When you are walki ng really try to engage your core. Use proper posture to keep your muscles and back strong. If you are going to lift anything make sure to use proper body mechanics and lift with your legs not your back. Try to avoid lifting and twisting as this is very hard on your back. Use your back but don't abuse it. Let pain be your guide. If you are doing an activity that starts causing you pain back off and ease back into it slowly. We don't want you taking any risks that do not need to be ta andre. You can take your brace off anytime you are sitting or laying down. LUMBAR POST-OP INSTRUCTIONS: You may now slowly increase your lifting up to 15 pounds as tolerated. You may now reach o verhead but it should only be 1-2 pounds. Please refrain from twisting for the next 8 weeks . Starting 02/14/18 begin this process: SPINE BRACE WEANING PROTOCOL (5 WEEKS) Below are instructions for weaning your brace. You can move through the weeks slower if yo u feel the need to do so, but the overall goal is to get you out of the brace slowly over th e next several weeks. WEEK 1 If you have been using your brace for activities like sleeping, showering, do not use the b race for these activities any longer but continue using it for everything else. WEEK 2 Stop wearing your brace for sitting and short distance walking. You should use the brace f or anything more involved. WEEK 3 Stop using the brace for medium distance walking. You can bend and twist your back but sti ll proceed slowly with these activities. WEEK 4 Stop using the brace for everything but the most difficult tasks. You should now be able t o go on long walks and lift more weight as directed. Add more bending and twisting as ashwin ated. WEEK 5 Stop using the brace for daily use. I would encourage you to use the brace in the future f or activities that you know might aggravate your back or cause pain. 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 documented in this encounter Progress Notes Jorge Mulligan PA-C - 02/07/2018 2:00 PM PDT Jorge Mulligan PA-C [address] [facility], [address] [place] [address] PHONE: FAX: NEUROSURGERY FOLLOW-UP CHIEF COMPLAINT: Chief Complaint Patient presents with Follow-up Wound Check HISTORY OF PRESENT ILLNESS: The patient is a 57 y.o. male that had a lumbar fusion for raheem k and leg symptoms on 12/15/17. He returns and overall is doing good. He has been getting I V antibiotics twice daily. He also has been seeing Dr. Claudio and he is managing his infectio n. He plans on following up with Dr. Claudio this week. He is very happy with how this surgery has gone thus far and is overall feeling pretty good. He has done PT in the past and found it helpful. He would like a referral for this. The patient has been walking as much as directed. He is taking pain medications at this po int. The patient has had some issues with his surgical site. PAST MEDICAL HISTORY: Past Medical History: Diagnosis [...] Surgical History: Procedure Laterality Date CHOLECYSTECTOMY 1998 [facility] HIP ARTHROPLASTY 2000 Dr. Castañeda HIP ARTHROPLASTY 2003 Dr. Castañeda LAMINECTOMY N/A 12/15/2017 Procedure: ALIF ANTERIOR APPROACH L5-S1 ALIF, Posterior Hardware Revision with Iliac Fixat ion; Surgeon: Kai Gillespie MD; Location: [facility] MAIN OR LUMBAR SPINE SURGERY Left 11/11/2016 Procedure: L3-4 Lateral Anterior Interbody Fusion, L3-4 Lumbar Decompression & Fusion, L5- S1 Transforaminal Lumbar Interbody Fusion; Surgeon: Kai Gillespie MD; Location: [facility] MAIN OR LUMBAR SPINE SURGERY 1999 [facility] LUMBAR SPINE SURGERY 2014 [facility] TOE AMPUTATION Bilateral 2013, 2016 Dr. [...] as needed for Pain. 120 tablet 0 insulin detemir (LEVEMIR) 100 units/mL injection (vial) [...] mouth Daily. traMADol (ULTRAM) 50 mg tablet Vancomycin HCl in NaCl 1.5-0.9 GM/150ML-% SOLN Inject 1,250 mg into the vein. vancomycin IVPB 1.5 g Inject 1.5 g [...] Problems Child INTERIM PHYSICAL EXAMINATION: Blood pressure 131/81, pulse 90, height 1.93 m (6' 4"), weight 123.4 kg (272 lb). Body mass index is 33.11 kg/m. REVIEW OF SYSTEMS: GENERALLY: No fever, no night sweats, no anemia, no fatigue, no recent profound weight ch anges. EYES: No eye problems, no impaired sight, [...] the patient has pain in back. PSYCHIATRIC: No depression, no [...] well without drainage, significant erythema, o r discharge.anterior incision is completely heeled and looks great. No sign of infection. T he most superior aspect of his incision on the left back had a 1 mm area that appeared abnor mal. No traditional signs of infection. I thought this area may be a retained stitch. The area was cleansed with alcohol and area debrided on its own with gentle mechanical wiping o f the alcohol swab. This created a small amount of bleeding. The area was inspected very c arefully using a magnifying glass. A Band-Aid was placed over this area. EXTREMITIES: No lower extremity edema. NEUROLOGICAL EXAMINATION: MENTAL STATUS: The patient is awake, alert, and oriented. He follows simple and complex commands MOTOR EXAM: Motor strength is 5/5. This is improved when compared to the preoperative exam . Right dorsiflexion is 2/5 SENSORY EXAM: The sensory examination is improved [...] expected at thi s time. ASSESSMENT: Encounter Diagnoses Name Primary? S/P lumbar fusion Yes Hardware complicating wound infection, subsequent encounter Past Medical History: Diagnosis Date Anxiety Depression Diabetes mellitus (HCC) Diabetes type 2, controlled (HCC) Graves disease Hearing deficit HTN (hypertension) Lumbar facet joint pain Lumbar radiculopathy MRSA (methicillin resistant Staphylococcus aureus) Peroneal neuropathy RLS (restless legs syndrome) Sleep apnea not used since weight loss Vision disorder deficit Wears dentures upper PLAN: Overall, the patient is doing good. The patient can see some improvements but continues to recover from recent surgery. We discussed increasing the patient s activities now allowing 15 pound lifting. The leslie ent will begin the process of brace weaning as directed starting 02/14/18. He was switched from a C brace to a B brace today. We would like the patient to advance slowly with this pr ocess and discussed this at length during today's visit. In 1 week he will be 2 months out f rom surgery. At that time he can begin weaning out of his brace and we have given him instru ctions on how to do this. The patient is meeting with Dr. Claudio the infectious disease doctor this week will be making decisions regarding when to stop IV antibiotics, whether to switch to oral antibiotics, jose t to stop the PICC line, and other decisions regarding management of his infection. I place d a Band-Aid over this area and have asked that this be evaluated every couple days. He has this done by the wound clinic where he receives his IV antibiotics. With this close oversi ght I do not need to see him back until his 3 month postop visit. We discussed that we can provide pain medications for up to 90 days after their surgical da te. We discussed the need to continue tapering pain medication. If they need longer term p ain medication, they should begin working on either pain management or with the primary care provider. We are hoping to see improvement over the coming weeks to months and plan to continue to fo llow this patient. The patient will follow-up in clinic in around 8 weeks for re-evaluation . IJorge PA-C, personally performed the services described in this documentati on, as scribed by ALEXUS Erwin, in my presence, and it is both accurate and comple te. Jorge Mulligan PA-C 02/07/18 ELECTRONICALLY SIGNED BY: Jorge Mulligan PA-C, 02/07/2018 15:14 documented in thi s encounter Plan of Treatment + + +--------+ + + | Name | Type | Priori | Associated Diagnoses | Order Schedule | | | | ty | | | + + +--------+ + + | Physical Therapy - | Outpatient | Routin | S/P lumbar fusion | Ordered: 02/07/2018 | | Ambulatory Referral | Referral | e | Hardware | | | | | | complicating wound | | | | | | infection, | | | | | | subsequent encounter | | + + +--------+ + + documented as of this encounter Visit Diagnoses + + | Diagnosis | + + | S/P lumbar fusion - Primary Arthrodesis status | + + | Hardware complicating wound infection, subsequent encounter | + + documented in this encounter
--- OUTSIDE RECORDS SUMMARY | ~2020-02-04 | XMS | Encounter Summary ---
Demographics + + + | Address | [address] | | | [place] [address] | + + + | Home Phone | | + + + | Preferred Language | Unknown | + + + | Marital Status | | + + + | Congregational Affiliation | CHR | + + + | Race | White | + + + | Ethnic Group | Not or | + + + Author + + + | Author | [facility] | + + + | Organization | [facility] | + + + | Address | Unknown | + + + | Phone | Unavailable | + + + Support + + +---------+ + | Name | Relationship | Address | Phone | + + +---------+ + | Leslie Lentz | ECON | Unknown | | + + +---------+ + Care Team Providers + +------+ + | Care Rn Primary Care Name | Role | Phone | + +------+ + | Aggie Dunn ROAD MAKER | PCP | | + +------+ + Reason for Visit + + + | Reason | Comments | + + + | New Patient Visit | | + + + | Medical Eye | | | Examination | | + + + Benefits Check (Routine) + +--------+ + + + + | Status | Reason | Specialty | Diagnoses / | Referred By | Referred To | | | | | Procedures | Contact | Contact | + +--------+ + + + + | Authorized | | Ophthalmology | | Non-[facility] | [facility], | | | | | | Epic Dept | MD [address] | | | | | | | [address] | | | | | [address] | | | | | | | [place], [place] | | | | | | | [address] | | | | | | | Phone: | | | | | | | [phone] | | | | | | | Fax: | | | | | | | [phone] | + +--------+ + + + + Encounter Details +--------+---------+ + + + | Date | Type | Department | Care Team | Description | +--------+---------+ + + + | 12/05/ | Office | [facility] | Tammy Serrano, | Severe | | 2020 | Visit | [facility] | [address] | nonproliferative | | | | [address] | [address] | diabetic retinopathy | | | | [address] | [place], [place] | of right eye, | | | | [facility] | [address] | without macular | | | | floor [place], [place] | [phone] | edema, associated | | | | [address] | | with type 2 diabetes | [...] | | | | | (HCC) | +--------+---------+ + + + Social History + +-------+ +--------+------+ | Tobacco Use | Types | Packs/Day | Years | Date | | | | | Used | | + +-------+ +--------+------+ | Former Smoker | | | | | + +-------+ +--------+------+ + +---+---+---+ | Smokeless Tobacco: | | [...] + documented as of this encounter Progress Zaria Sommers MD - 12/06/2019 9:00 AM PDT [facility] Progress Note 12/06/2019 Assessment & Plan: 59 y.o. male Retinal detachment, left - Rhegmatogenous fovea-involving retinal detachment - Myope, pseudophakic, No PVD, recent intravitreal injection 11/29/2019, +family h/o RD (moth er and grandmother) - No anticoagulation use - Does not live at elevation, no planned air travel - There are no holes, tears, or detachments on 360 degree scleral depressed exam in the fel low eye. - Angiography performed OD today, and there is NVE along inferior arcades. - Risks and benefits of observation vs surgical repair were discussed - Informed consent obtained, case request placed - Gas precautions and post-op positioning possibilities discussed with pt - Schedule for PPV/EL/gas, left eye in the OR, and REYNALDO OD - NPO after midnight tonight--return for surgery tomorrow at 2PM - COVID testing today at [facility] Discussed with patient that an untreated retinal detachment will usually result in permanen t severe vision loss or blindness. Also discussed that there are surgical risks associated w ith retinal reattachment. Some of these surgical risks include infection; bleeding; high pr essure inside the eye; cataract; or excessive scar tissue formation. Discussed that most ret inal detachment surgery is successful, although subsequent procedures may be needed sometime s. If the retina cannot be reattached, the eye will continue to lose sight and ultimately be come blind. Discussed with patient that vision may take many months to improve and in some c ases may never fully return. Indicated that unfortunately, some patients, particularly those with chronic retinal detachment or those with numerous postoperative complications, do not recover any vision. Indicated that the more severe the detachment, and the longer it has be en present, the less vision may be expected to return. Questions answered. Patient agreeable to go ahead with procedure. Consent signed. Call for decreased vision, increased distortion, increased pain, new floaters or flashing l ights Follow up: Return in about 1 day (around 12/07/2019) for surgery tomorrow . Chief Complaint: New Patient Visit Medical Eye Examination HPI (Edited by physician):New patient referred by Dr. Ferguson for VH/RD OS. Patient states he had an eye injection last for "ruptred blood vessels". After injection vision was c lear initially but went black very quickly. States vision out of left eye at present is "tot al darkness" other than flashes of light. Not using any eye drops. Right eye feels like is "has been under some stress and hard to f ocus" but no new floaters or flashes of light. Current Outpatient Medications (Other) Medication Sig cefPODOxime cyclobenzaprine take 1/2-1 tablet by mouth three times a day (DO NOT TAKE WHILE WORKING OR DRIVING) DULoxetine gabapentin HYDROcodone-acetaminophen take 1-2 tablets by mouth every 8 hours if needed for pain ibuprofen irbesartan-hydrochlorothiazide Levemir U-100 Insulin LORazepam take 1/2 to 1 tablet by mouth twice a day metFORMIN traMADoL Reviewed: Allergies | Meds | Examination: See Ophthalmology Module Attestations: The attending physician is responsible for and agrees with the entire content of the note a nd has personally performed the HPI and the physical examination. 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 Ferguson - had single avastin injection a nd now has RRD OS - recommend surgery as above and plan PRP at same timeElectronically josselin d by Tammy Serrano MD at 12/06/2019 1:21 PM PDTAssessment & Plan Note - Dai Serrano MD - 12/06/2019 1:17 PM PDTAssociated Problem(s): Severe nonproliferative diabetic reti nopathy of right eye, without macular edema, associated with type 2 diabetes mellitus (HCC)S evere NPDR with NVE OD - recommend PRP OD at time of surgery OS tomorrowElectronically josselin d by Tammy Serrano MD at 12/06/2019 1:17 PM PDTAssessment & Plan Note - Sanchez Walker i, MD - 12/06/2019 9:42 AM PDTAssociated Problem(s): Retinal detachment, left s/p PPV/SB/ 20% SF6 12/07/2019- Rhegmatogenous fovea-involving retinal detachment - Myope, pseudophakic, No PVD, recent intravitreal injection 11/29/2019, +family h/o RD (moth er and grandmother) - No anticoagulation use - Does not live at elevation, no planned air travel - There are no holes, tears, or detachments on 360 degree scleral depressed exam in the fel low eye. - Angiography performed OD today, and there is NVE along inferior arcades. - Risks and benefits of observation vs surgical repair were discussed - Informed consent obtained, case request placed - Gas precautions and post-op positioning possibilities discussed with pt - Schedule for PPV/EL/gas, left eye in the OR, and REYNALDO OD - NPO after midnight tonight--return for surgery tomorrow at 2PM - COVID testing today at [facility] Discussed with patient that an untreated retinal detachment will usually result in permanen t severe vision loss or blindness. Also discussed that there are surgical risks associated w ith retinal reattachment. Some of these surgical risks include infection; bleeding; high pr essure inside the eye; cataract; or excessive scar tissue formation. Discussed that most ret inal detachment surgery is successful, although subsequent procedures may be needed sometime s. If the retina cannot be reattached, the eye will continue to lose sight and ultimately be come blind. Discussed with patient that vision may take many months to improve and in some c ases may never fully return. Indicated that unfortunately, some patients, particularly those with chronic retinal detachment or those with numerous postoperative complications, do not recover any vision. Indicated that the more severe the detachment, and the longer it has be en present, the less vision may be expected to return. Questions answered. Patient agreeable to go ahead with procedure. Consent signed. documented in this encounter Plan of Treatment [...] + + documented in this encounter Results FLUORESCEIN ANGIOGRAPHY (12/06/2019 10:26 AM PDT) + + + | Narrative | Performed At | + + + | Technical Business Analyst | [facility] | | DocumentationConsent: Informed [...] heme no | | | detail) NotesLot#: [id number] | | | | | | | [...] | | | |Notes | | |Lot#: [id number] | | + + + + + + + + | Performing | Address | City/State/Zipcode | Phone Number | | Organization | | | | + + + + + | [facility] | [address] | [place] [address] | | | MORE | [place]. | | | + + + + + FUNDUS PHOTOS (12/06/2019 10:18 AM PDT) + + + | Narrative | Performed At | + + + | Technical Business Analyst | [facility] | | DocumentationType was [...] + | [facility] | [address] | [place] [address] | | | INSTITUTE | [place]. | | | + + + + + B SCAN ULTRASOUND - OS - LEFT EYE (12/06/2019 10:14 AM PDT) + + -+ | Narrative | Performed At | + + -+ | B-scan OS | [facility] | | Indications: Retinal detachment, rhegmatogenous, left [...] + | [facility] | [address] | [place] [address] | | | INSTITUTE | [place]. | | | + + + + + OCT, RETINA (12/06/2019 10:03 AM PDT) + + + | Narrative | Performed At | + + + | Technical Business Analyst | [facility] | | DocumentationRight EyeQuality: [...] + | [facility] | [address] | [place] [address] | | | MORE | [place]. | | | + + + + + documented in this encounter Visit Diagnoses + + | Diagnosis | + + | Severe nonproliferative diabetic retinopathy of right eye, without macular edema, | | associated with type 2 diabetes mellitus (HCC) - Primary | + + | Retinal detachment, rhegmatogenous, left eye Retinal detachment with retinal defect, | | unspecified | + + | Retinal detachment, left Unspecified retinal detachment | + + | Proliferative diabetic retinopathy of left eye without macular edema associated with | | type 2 diabetes mellitus (HCC) | + + documented in this encounter
--- OUTSIDE RECORDS SUMMARY | ~2020-02-04 | XMS | Encounter Summary ---
Demographics + + + | Address | [address] | | | [place] [address] | + + + | Home Phone | | + + + | Preferred Language | Unknown | + + + | Marital Status | | + + + | Episcopalian Affiliation | CHR | + + + | Race | White | + + + | Ethnic Group | Not or | + + + Author + + + | Author | [facility] | + + + | Organization | [facility] | + + + | Address | Unknown | + + + | Phone | Unavailable | + + + Support + + +---------+ + | Name | Relationship | Address | Phone | + + +---------+ + | Leslie Lentz | ECON | Unknown | | + + +---------+ + Care Team Providers + +------+ + | Care Contact Centre Supervisor Name | Role | Phone | + +------+ + | Paluo Rothman MD | PCP | | + +------+ + Reason for Referral Office Visit - E/M Services (Routine) +--------+--------+ + + + + | Status | Reason | Specialty | Diagnoses / | Referred By | Referred To | | | | | Procedures | Contact | Contact | +--------+--------+ + + + + | Closed | | Orthopedics | Diagnoses | | Elisabeth, | | | | | Sacroiliac | Fatuma | MD Vimal | | | | | joint | , MD Meri | [address] | | | | | dysfunction | [address] | [address] | | | | | of right | [address] | [address] [place], | | | | | side | [place], [place] | [place] | | | | | Procedures | [address] | [address] | | | | | CONSULT TO | Phone: | Phone: | | | | | ORTHOPEDICS | [phone] | [phone] | | | | | AND | Fax: | Fax: | | | | | REHABILITATI | [phone] | [phone] | | | | | ON | | | +--------+--------+ + + + + Reason for Visit + + + | Reason | Comments | + + + | Low back pain | | + + + | Pain in right leg | | + + + Consultation (Routine) +--------+--------+ + + + + | Status | Reason | Specialty | Diagnoses / | Referred By | Referred To | | | | | Procedures | Contact | Contact | +--------+--------+ + + + + | Closed | | Pain | Diagnoses | 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, | 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 | Chronic | Matt | [address] | | | | | radicular | Rob Pierre, | [address] | | | | | low back | MD [address] | for [facility] | | | | | pain | [address] | and Healing, | | | | | Deconditione | [place], [place] | Building | | | | | d low back | [address] | [address] | | | | | Osteomyeliti | Phone: | [place], [place] | | | | | s of spine | [phone] | [address] | | | | | (HCC) | Fax: | Phone: | | | | | Pseudoarthro | [phone] | [phone] | | | | | sis of | | Fax: | | | | | lumbar spine | | [phone] | | | | | S/P lumbar | | | | | | | spinal | | | | | | | fusion | | | | | | | Spondylolysi | | | | | | | s of | | | | | | | lumbosacral | | | | | | | region | | | | | | | Spondylolist | | | | | | | hesis at | | | | | | | L5-S1 level | | | | | | | Foraminal | | | | | | | stenosis of | | | | | | | lumbosacral | | | | | | | region Left | | | | | | | foot drop | | | | | | | Radicular | | | | | | | syndrome of | | | | | | | right leg | | | | | | | Procedures | | | | | | | CONSULT TO | | | | | | | PAIN | | | | | | | MANAGEMENT | | | +--------+--------+ + + + + Encounter Details +--------+---------+ + + + | Date | Type | Department | Care Team | Description | +--------+---------+ + + + | 03/16/ | Office | [facility] | Fatuma, | Sacroiliac joint | | 2016 | Visit | Pain Center at | MD Meri [address] | dysfunction of right | | | | [facility] | [address] [facility], | side (Primary Dx); | | | | [address] | [place] [address] | Trochanteric | | | | [place] [facility] | [phone] | bursitis of both | | | | and Healing, | | hips; Lumbosacral | | | | | | spondylosis without | | | | Floor [place], [place] | | myelopathy | | | | [address] | | | | | | [phone] | | | +--------+---------+ + + + [...] + + + | Blood Pressure | 131/91 | 03/16/2016 8:23 AM | | | | | PST | | + + + + + | Pulse | 87 | 03/16/2016 8:23 AM | | | | | PST | | + + + + + | Temperature | - | - | | + + + + + | Respiratory Rate | 24 | 03/16/2016 8:23 AM | | | | | PST | | + + + + + | Oxygen Saturation | 97% | 03/16/2016 8:23 AM | | | | | PST | | + + + + + | Inhaled Oxygen | - | - | | | Concentration | | | | + + + + + | Weight | 121.1 kg (267 lb) | 03/16/2016 8:23 AM | | | | | PST | | + + + + + | Height | 193 cm (6' 4") | 03/16/2016 8:23 AM | | | | | PST | | + + + + + | Body Mass Index | 32.5 | 03/16/2016 8:23 AM | | | | | PST | | + + + + + documented in this encounter Patient Instructions Patient Instructions Meri Burris MD - 03/16/2016 10:10 AM PSTThank you for taking the time to see us in the [facility] today. We look forward to working with you in the future. As a reminder, this clinic generally does not prescribe or dispense medi cations. We will send a copy of our notes, including detailed recommendations, to your [facility] [place] care provider (PCP). Any prescriptions will need to come from that provider. Please con tact their office within the next few days to make an appointment to get started with our re commendations. Below is a short summary of what we discussed today for your reference. 1) Referral provided to Physical Medicine and Rehabilitation. The phone number you need to call to make an appointment is highlighted on this form. 2) Return to see me in 3 months to see how you are doing. documented in this encounter Progress Notes Meri Burris MD - 03/16/2016 10:10 AM PST Date: 03/16/2016 was referred for pain management consultation by Matt South MD [address] [place] [phone] Reason for consult: low back and right leg pain Chief Complaint Patient presents with Low back pain Pain in right leg History of Present Illness: Fredis Mustafa is a 56 year old male s/p removal of broken spin al implants on 07/07/15 that was complicated by a spinal infection s/p debridement and irriga tion 07/21/15. The original spine surgery was in 1999 lumbar fusion (L4-L5?). The patient fir st had axial low back pain without radiation in 1999. The patient had surgery at this time f or bone spurs and herniated discs. The surgery was helpful with the patient's axial low back pain until one year ago when he started having low back pain again. The patient had imaging that showed that the hardware was lose. He was not having any leg pain at that time but was experiencing stabbing pain in his tailbone. The patient then had the removal or spinal impl ants and after the debridement he started experiencing right leg pain and left leg foot drop . The pain in his right leg radiates along the lateral leg and ends right above the knee on the lateral aspect. He describes that pain as a constant, knife like pain that also aguila. Gayle archuleta feels that at this point his leg pain is worse than his low back pain. His medications are currently being prescribed by Dr. Rothman. The patient denies any red flag symptoms includi ng bowel or bladder symptoms, fever (admits to night sweats), chills, saddle anesthesia, pro found motor loss, history of cancer, history of immune compromise, unintentional weight loss , and/or other related medical history. He has tried: [place] Tramadol (not helpful) Ibuprofen Gabapentin 1200 mg PO q HS (denies side effects, helpful at night) Flexeril (helpful) Duloxetine (helpful) Physical therapy (36 sessions - helpful but Medicare stopped paying) Aqua therapy (helpful) Sacroiliac joint injection (helpful but not long lasting relief) Epidural steroid injections (not helpful) Chiropractic (did not help) He feels that the most effective treatments include: physical therapy. lives in a single family home with his spouse. He receives disability since 200 4 for his chronic low back pain. 's recreational activities include: walking with his spouse. As a result of his pain, notes multiple changes in his life, includ ing fishing, working in open table kitchen, faith involvement. He still tries to be active. 's goals from today's appointment include: a reduction in pain. 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: ((ten= worst possible pain or complete interference) Right Now: 9 (03/16/16931) Least in 24 hours: 6 (03/16/16931) Worst in 24 hours: 10 (03/16/16931) Average: 9 (03/16/16931) % Relief (med/treat): 40 (03/16/16931) General Activity: 9 (03/16/16931) Mood: 5 (03/16/16931) Walking Ability: 9 (03/16/16931) Normal Work: 10 (03/16/16931) Relations with Others: 6 (03/16/16931) Enjoyment of Life: 8 (03/16/16931) Sexual Activity: 8 (03/16/16931) Sleep: 9 (03/16/16931) Past Medical History Diagnosis Date Bursitis of right hip Chronic radicular low back pain Deconditioned low back Degenerative joint disease Duodenitis without bleeding Foraminal stenosis of lumbosacral region Generalized OA Hypertension Left foot drop Osteomyelitis of spine (HCC) Pseudoarthrosis of lumbar spine Radicular syndrome of right leg S/P lumbar spinal fusion Spondylolisthesis at L5-S1 level Spondylolysis of lumbosacral region Type 2 diabetes mellitus (HCC) Left hand infection Past Surgical History Procedure Laterality Date Lumbar spinal fusion 1999 Lumbar spine surgery 06/2015 Lumbar Spine hardware removal; Dr. Betty Salvador in [place] Bilateral hip replacement Cervical fusion Left knee arthroscopy Cholecystectomy Family History Problem Relation Diabetes Mother Heart Disease Mother Cancer Father stomach Heart Disease Father History Alcohol Use No Denies alcohol use History Drug Use No Social History Social History Narrative Allergies Allergen Reactions Codeine Rash "makes my skin crawl" Current Medication List Name Sig CEFPODOXIME 200 MG TABLET CYCLOBENZAPRINE 10 MG TABLET take 1/2-1 tablet by mouth three times a day (DO NOT TAKE WHIL E WORKING OR DRIVING) DULOXETINE 60 MG CAPSULE,DELAYED RELEASE GABAPENTIN 300 MG CAPSULE HYDROCODONE 10 MG-ACETAMINOPHEN 325 MG TABLET take 1-2 tablets by mouth every 8 hours if ne eded for pain IBUPROFEN 600 MG TABLET IRBESARTAN 150 MG-HYDROCHLOROTHIAZIDE 12.5 MG TABLET LEVEMIR 100 UNIT/ML SUBCUTANEOUS SOLUTION LORAZEPAM 1 MG TABLET take 1/2 to 1 tablet by mouth twice a day METFORMIN 1,000 MG TABLET TRAMADOL 50 MG TABLET Radiology/Diagnostic Tests: Review of Systems Constitutional: Positive for malaise/fatigue. Negative for chills, fever and weight loss. Eyes: Positive for blurred vision. Negative for double vision. Respiratory: Negative for shortness of breath. Cardiovascular: Negative for chest pain. Gastrointestinal: Negative for constipation, diarrhea, nausea and vomiting. Genitourinary: Positive for frequency. Negative for dysuria and urgency. Musculoskeletal: Positive for back pain and myalgias. Negative for falls, joint pain and ne ck pain. Skin: Negative for rash. Neurological: Positive for weakness. Negative for dizziness, tingling, sensory change and h eadaches. Endo/Heme/Allergies: Bruises/bleeds easily. Psychiatric/Behavioral: Negative for depression and suicidal ideas. The patient is nervous/ anxious. BP 131/91 | Pulse 87 | RR 24 | Ht 1.93 m (6' 4") | Wt 121.1 kg (267 lb) | SpO2 97% | BMI 32 .5 kg/(m^2) Physical Exam Constitutional: He is well-developed, well-nourished, and in no distress. HENT: Head: Normocephalic and atraumatic. Eyes: Right eye exhibits no discharge. Left eye exhibits no discharge. Neck: No tracheal deviation present. Cardiovascular: Normal rate. Pulmonary/Chest: Effort normal. Musculoskeletal: GAIT & STATION: Unstable - ambulates with walker, toe unable and heel unable SPINE: physiologic curvature Cervical spine Curvature: physiologic Thoracic Spine Curvature: increased kyphosis Lumbar curvature: decreased lordosis Lumbar active range of motion in degrees: Flexion: 50; painful Extension: 5; painful Right rotation + extension: painful Left rotation + extension: painful Myofascial tenderness: tender over the right sacroiliac joint injection, bilateral trochant megan bursa, no tenderness over the lumbar paraspinal muscles Manual tender point survey: not indicated Lumbopelvic examination: Obie's: Negative bilaterally FAIR: Negative bilaterally Shoulder unable to abduct on left past 45 degrees Neurological: He is alert. Reflex Scores: Tricep reflexes are 0 on the right side and 0 on the left side. Bicep reflexes are 1+ on the right side and 1+ on the left side. Brachioradialis reflexes are 0 on the right side and 0 on the left side. Patellar reflexes are 1+ on the right side and 1+ on the left side. Achilles reflexes are 0 on the right side and 0 on the left side. Neurological: Ankle clonus: absent Sensory examination: intact light touch bilaterally in lower extremities and intact pin valorie aterally in lower extremities Allodynia: absent Motor power: Motor strength: 3/5 hip flexion on right and 4/5 on left, 4/5 knee flexion and extension, 3 /5 left foot dorsi and plantar flexion, 4/5 right foot dorsi and plantar flexion, left shoul alonso 4/5 abduction, right shoulder 5/5 abduction, interrosesus muscles in left hand 4/5 other reardon 5/5 in upper extremity Straight Leg Raise (estimated degrees): Left: asymptomatic at 45 degrees Right: asymptomatic at 60 degrees Skin: Skin is warm and dry. No erythema. Psychiatric: Affect normal. Vitals reviewed. Neurologic Exam Gait, Coordination, and Reflexes Reflexes Right brachioradialis: 0 Left brachioradialis: 0 Right biceps: 1+ Left biceps: 1+ Right triceps: 0 Left triceps: 0 Right patellar: 1+ Left patellar: 1+ Right achilles: 0 Left achilles: 0 Ortho Exam There is no problem list on file for this patient. Visit Diagnoses: M53.3 Sacroiliac joint dysfunction of right side M70.61, M70.62 Trochanteric bursitis of both hips M47.817 Lumbosacral spondylosis without myelopathy For today's evaluation, I have included my personal review of Mr. Mustafa's history and ph ysical examination. I also used the following components in my medical decision making: Radiology Reports reviewed. Impression: Mr. Fredis Mustafa is a 56 y.o. male with a complicated history of lumbosacral spondylosis s/p lumbar fusion in 1999 complicated by lumbosacral spinal hardware removal due to broken i mplants on 07/07/15 and further complicated by post-op infection s/p debridement and irrigati on 07/21/15. The patient now has spondylolisthesis at L5-S1 and multilevel lumbosacral centra l spinal and foraminal stenosis. Per the patient, he is currently being evaluated by spine s urgery for possible surgical revision after his left hand infection heals. The patient's lee n starts in the low back and radiates to the buttock and lateral right leg. The differential for his pain is sacroiliac joint dysfunction versus lumbar radiculopathy. As the surgeons a re addressing his multilevel central spinal and foraminal stenosis, and he has failed both l umbar epidural steroid injections and sacroiliac joint injections in the past, I suggested t hat the patient consider seeing a Physical Medicine and Rehabilitation physician to analyze his biomechanics and assess whether sacroiliac joint dysfunction is contributing to his pain ful symptoms. The patient understands this rationale and is amenable to the plan. Recommendation/Plan: - Referral provided Physical Medicine and Rehabilitation - Patient will return to clinic in 3 months Meri Burris MD [facility] 2:4 2 PM Yuly Valencia MA - 03/16/2016 10:10 AM PST Review of Systems HENT: Positive for congestion. Eyes: Positive for double vision. Respiratory: Sleep apnea Cardiovascular: HTN Gastrointestinal: Negative. Genitourinary: Negative. Musculoskeletal: Positive for back pain. Skin: Negative. Neurological: Positive for weakness. Endo/Heme/Allergies: DM Psychiatric/Behavioral: Positive for depression. Physical Exam Ortho Exam Neurologic Exam document ed in this encounter Plan of Treatment Not on filedocumented as of this encounter Visit Diagnoses + + | Diagnosis | + + | Sacroiliac joint dysfunction of right side - Primary Disorders of sacrum | + + | Trochanteric bursitis of both hips Enthesopathy of hip region | + + | Lumbosacral spondylosis without myelopathy | + + documented in this encounter
--- OUTSIDE RECORDS SUMMARY | ~2020-02-04 | XMS | Encounter Summary ---
Demographics + + + | Address | [address] | | | [place] [address] | + + + | Home Phone | | + + + | Preferred Language | Unknown | + + + | Marital Status | | + + + | Worship Affiliation | 1013 | + + + | Race | White | + + + | Ethnic Group | Not or | + + + Author + + + | Author | [facility] | | | and [place] | + + + | Organization | [facility] | | | [...] [place] | | | | | [address] | | + + + + + | Leslie Lentz | ECON | Unknown | | + + + + + Care Team Providers + +------+ + | Care Neck Pinner Name | Role | Phone | + +------+ + | Paulo Rothman MD | PCP | | + +------+ + Encounter Details +--------+ + + + + | Date | Type | Department | Care Team | Description | +--------+ + + + + | 11/08/ | Preadmit | [facility] | Kai Gillespie MD | Preoperative | | 2018 | Visit | [facility] | [address] | clearance (Primary | | | | CLINIC [address] | [place] [address] | Dx); Lumbar | | | | [place], [place] | [phone] | radiculopathy; | | | | [address] | | Foraminal stenosis | | | | [phone] | | of lumbar region; | | | | | | Pseudoarthrosis of | | | | | | lumbar spine; Right | | | | | | foot drop; S/P | | | | | | lumbar fusion; | | | | | | Controlled diabetes | | | | | | mellitus type 2 with | | | | | | complications, | | | | | | unspecified whether | | | | | | group home insulin | | | | | | use ([facility]); Diabetes | | | | | | mellitus of other | | | | | | type with | | | | | | complication, | | | | | | unspecified whether | | | | | | 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 | + +--------+ + + + | CBC WITH | Routin | 11/08/2017 | Lumbar | Results for this | | DIFFERENTIAL | e | 11:19 AM | radiculopathy | procedure are in the | | | | PDT | Foraminal stenosis | results section. | | | | | of lumbar region | | | | | | Pseudoarthrosis of | | | | | | lumbar spine Right | | | | | | foot drop S/P | | | | | | lumbar fusion | | | | | | Controlled diabetes | | | | | | mellitus type 2 with | | | | | | complications, | | | | | | unspecified whether | | | | | | termite control technician insulin | | | | | | use ([facility]) Diabetes | | | | | | mellitus of other | | | | | | type with | | | | | | complication, | | | | | | unspecified whether | | | | | | termite control technician insulin | | | | | | use ([facility]) Lumbar | | | | | | facet joint pain | | | | | | Obstructive sleep | | | | | | apnea syndrome | | | | | | Essential | | | | | | hypertension | | + +--------+ + + + | BASIC METABOLIC | Routin | 11/08/2017 | Lumbar | Results for this | | PANEL | e | 11:19 AM | radiculopathy | procedure are in the | | | | PDT | Foraminal stenosis | results section. | | | | | of lumbar region | | | | | | Pseudoarthrosis of | | | | | | lumbar spine Right | | | | | | foot drop S/P | | | | | | lumbar fusion | | | | | | Controlled diabetes | | | | | | mellitus type 2 with | | | | | | complications, | | | | | | unspecified whether | | | | | | termite control technician insulin | | | | | | use ([facility]) Diabetes | | | | | | mellitus of other | | | | | | type with | | | | | | complication, | | | | | | unspecified whether | | | | | | group home insulin | | | | | | use ([facility]) Lumbar | | | | | | facet joint pain | | | | | | Obstructive sleep | | | | | | apnea syndrome | | | | | | Essential | | | | | | hypertension | | + +--------+ + + + | ECG 12 LEAD | Routin | 11/08/2017 | Lumbar | Results for this | | | e | 11:13 AM | radiculopathy | procedure are in the | | | | PDT | Foraminal stenosis | results section. | | | | | of lumbar region | | | | | | Pseudoarthrosis of | | | | | | lumbar spine Right | | | | | | foot drop S/P | | | | | | lumbar fusion | | | | | | Controlled diabetes | | | | | | mellitus type 2 with | | | | | | complications, | | | | | | unspecified whether | | | | | | group home insulin | | | | | | use ([facility]) Diabetes | | | | | | mellitus of other | | | | | | type with | | | | | | complication, | | | | | | unspecified whether | | | | | | group home insulin | | | | | | use ([facility]) Lumbar | | | | | | facet joint pain | | | | | | Obstructive sleep | | | | | | apnea syndrome | | | | | | Essential | | | | | | hypertension | | + +--------+ + + + documented in this encounter Results CBC with Differential (11/08/2017 11:19 AM PDT) + +-------+ + + + | Component | Value | Ref Range | Performed | Pathologist | | | | | At | Signature | + +-------+ + + + | White Blood | 5.8 | 4.0 - 11.0 K/uL | [facility] | | | Cells | | | [facility] | | | | | | [facility] | | | | | [facility] - | | | | | | LABORATORY | | + +-------+ + + + | Red Blood | 5.18 | 4.30 - 5.70 | [facility] | | | Cells | | M/uL | [facility] | | | | | | [facility] | | | | | | C[facility] - | | | | | | LABORATORY | | + +-------+ + + + | Hemoglobin | 16.3 | 13.5 - 18.0 | [facility] | | | | | g/dL | [facility] | | | | | [facility] | | | | | | [facility] - | | | | | | LABORATORY | | + +-------+ + + + | Hematocrit | 46.7 | 40.0 - 51.0 % | [facility] | | | | | | [facility] | | | | | | [facility] | | | | | | C[facility] - | | | | | | LABORATORY | | + +-------+ + + + | MCV | 90.2 | 83.0 - 101.0 fL | [facility] | | | | | | [facility] | | | [facility] | | [facility] | | | | | | C[facility] - | | | | | | LABORATORY | | + +-------+ + + + | MCH | 31.4 | 28.0 - 35.0 pg | [facility] | | | | | | [facility] | | | | | | [facility] | | | | | | [facility] - | | | | | | LABORATORY | | + +-------+ + + + | MCHC | 34.8 | 32.0 - 36.0 | [facility] | | | | | g/dL | [facility] | | | | | | [facility] | | | | | | CENTER - | | | | | | LABORATORY | | + +-------+ + + + | RDW-CV | 13.3 | <15.0 % | [facility] | | | | | | [facility] | | | | | | [facility] | | | | | | C[facility] - | | | | | | LABORATORY | | + +-------+ + + + | Platelet | 153 | 140 - 440 K/uL | [facility] | | | Count | | | [facility] | | | | | | [facility] | | | | | | CENTER - | | | | | | LABORATORY | | + +-------+ + + + | MPV | 11.6 | fL | [facility] | | | | | | [facility] | | | [facility] | | [facility] | | | | | | [facility] - | | | | | | LABORATORY | | + +-------+ + + + | % | 65.9 | 45.0 - 82.0 % | [facility] | | | Neutrophils | | | [facility] | | | | | | MEDICAL | | | | | | CENTER - | | | | | | LABORATORY | | + +-------+ + + + | % | 23.3 | 20.0 - 45.0 % | [facility] | | | Lymphocytes | | | [facility] | | | | | | MED[facility] | | | | | | CENTER - | | | | | | LABORATORY | | + +-------+ + + + | % Monocytes | 8.2 | 4.0 - 12.0 % | [facility] | | | | | | [facility] | | | | | | [facility] | | | | | | CENTER - | | | | | | LABORATORY | | + +-------+ + + + | % | 2.0 | 0.0 - 5.0 % | [facility] | | | Eosinophils | | | [facility] | | | | | | MEDICAL | | | | | | CENTER - | | | | | | LABORATORY | | + +-------+ + + + | % Basophils | 0.6 | 0.0 - 1.0 % | [facility] | | | | | | [facility] | | | | | | [facility] | | | | | | CENTER - | | | | | | LABORATORY | | + +-------+ + + + | Absolute | 3.90 | 1.80 - 8.50 | [facility] | | | Neutrophils | | K/uL | [facility] | | | | | | [facility]ICAL | | | | | | CENTER - | | | | | | LABORATORY | | + +-------+ + + + | Absolute | 1.40 | 0.60 - 3.20 | [facility] | | | Lymphocytes | | K/uL | [facility] | | | | | | [facility]ICAL | | | | | | CENTER - | | | | | | LABORATORY | | + +-------+ + + + | Absolute | 0.50 | 0.00 - 1.00 | [facility] | | | Monocytes | | K/uL | [facility] | | | | | | [facility] | | | | | | CENTER - | | | | | | LABORATORY | | + +-------+ + + + | Absolute | 0.10 | 0.00 - 0.40 | [facility] | | | Eosinophils | | K/uL | [facility] | | | | | | [facility] | | | | | | C[facility] - | | | | | | LABORATORY | | + +-------+ + + + | Absolute | 0.00 | 0.00 - 0.10 | [facility] | | | Basophils | | K/uL | [facility] | | | | | | [...] + | [facility] | [address] | [place] | [phone] | | [facility] | | [address] | | | - LABORATORY | | | | + + + + + Basic Metabolic Panel (11/08/2017 11:19 AM PDT) + + + + + + | Component | Value | Ref Range | Performed | Pathologist | | | | | At | Signature | + + + + + + | Na | 134 (L) | 136 - 149 | [facility] | | | | | mmol/L | [facility] | | [facility] | [facility] | | | | | | [facility] - | | | | | | LABORATORY | | + + + + + + | K | 4.3 | 3.5 - 5.1 | [facility] | | | | | mmol/L | [facility] | | | | | | MEDICAL | | | | | | CENTER - | | | | | | LABORATORY | | + + + + + + | Cl | 95 (L) | 98 - 109 mmol/L | [facility] | | | | | | [facility] | | | | | | [facility] | | | | | | CENTER - | | | | | | LABORATORY | | + + + + + + | CO2 | 29 | 24 - 31 mmol/L | [facility] | | | | | | [facility] | | | | | | [facility]ICAL | | | | | | CENTER - | | | | | | LABORATORY | | + + + + + + | Anion Gap | 10 | 3 - 16 mmol/L | [facility] | | | | | | [facility] | | | | | | [facility] | | | | | | CENTER - | | | | | | LABORATORY | | + + + + + + | Glucose | 360 (H) | 70 - 109 mg/dL | [facility] | | | | | | [facility] | | | | | | MED[facility] | | | | | | CENTER - | | | | | | LABORATORY | | + + + + + + | BUN | 30 (H) | 7 - 18 mg/dL | [facility] | | | | | | [facility] | | | | | | [facility] | | | | | | CENTER - | | | | | | LABORATORY | | + + + + + + | Creatinine | 0.92 | 0.60 - 1.30 | [facility] | | | | | mg/dL | [facility] | | | [facility] | | MEDICAL | | | | | | CENTER - | | | | | | LABORATORY | | + + + + + + | eGFR, | >60Comment: GLOMERULAR | >=60 | [facility] | | | non- | FILTRATION | mL/min/1.73m2 | [facility] | | | [place] | RATE,ESTIMATED | | MEDICAL | | | | mL/min/1.71g5Vint than | | CENTER - | | | | 60 Chronic kidney | | LABORATORY | | | | disease,if found over a | | | | | | 3-month period.Less than | | | | | | 15 Kidney failureFor | | | | | | | | | | | | Americans,multiply the | | | | | | calculated GFR by 1.21. | | | | | | | | | | + + + + + + | Calcium | 9.4 | 8.3 - 10.5 | [facility] | | | | | mg/dL | [facility] | | | | | | MEDICAL | | | | | | CENTER - | | | | | | LABORATORY | | + + + + + + | BUN/Creatin | 32.6 | | [facility] | | | ine Ratio | | | [facility] | [facility] | [facility] | | | | | | CENTER - | | | | | | LABORATORY | | + + + + + + + + | Specimen | + + | Blood | + + + + + + + | Performing | Address | City/State/Zipcode | Phone Number | | Organization | | | | + + + + + | [facility] | [address] | [place] | [phone] | | [facility] | | [address] | | | - LABORATORY | | | | + + + + + Culture, MRSA (11/08/2017 11:19 AM PDT) + + + + + + | Component | Value | Ref Range | Performed | Pathologist | | | | | At | Signature | + + + + + + | Culture | Negative for MRSA by | | [facility] | | | | chromogenic agar method | | [facility] | | | | | | MEDICAL | | | | | | CENTER - | | | | | | LABORATORY | | + + + + + + + + | Specimen | + + | Tissue - Both | | anterior nares (body | | structure) | + + + + + + + | Performing | Address | City/State/Zipcode | Phone Number | | Organization | | | | + + + + + | [facility] | [address] | [place] | [phone] | | [facility] | | [address] | | | - LABORATORY | | | | + + + + + ECG 12 lead (11/08/2017 11:13 AM PDT) + + + + + + | Component | Value | Ref Range | Performed | Pathologist | | | | | At | Signature | + + + + + + | VENTRICULAR | 85 | BPM | [facility] | | | RATE EKG | | | | | + + + + + + | ATRIAL RATE | 85 | BPM | [facility] | | + + + + + + | P-R | 184 | ms | [facility] | | | INTERVAL | | | | | + + + + + + | QRS | 102 | ms | [facility] | | | DURATION | | | | | + + + + + + | Q-T | 378 | ms | [facility] | | | INTERVAL | | | | | + + + + + + | Q-T | 449 | ms | [facility] | | | INTERVAL | | | | | | (CORRECTED) | | | | | + + + + + + | P WAVE AXIS | 43 | degrees | [facility] | | + + + + + + | QRS AXIS | -19 | degrees | [facility] | | + + + + + + | T AXIS | 26 | degrees | [facility] | | + + + + + + | INTERPRETAT | Normal sinus | | [facility] | | | ION TEXT | rhythmPossible Inferior | | | | | | infarct , age | | | | | | undeterminedWhen | | | | | | compared with ECG of | | | | | | 20-OCT-2016 17:03,No | | | | | | significant change was | | | | | | foundConfirmed by | | | | | | SAÚL MILLAN MD ([id number]) | | | | | | on 11/09/2017 6:21:36 AM | | | | + + + + + + + + | Specimen | + + | | + + + + + | Narrative | Performed At | + + + | | | + + + + +---------+ + + | Performing | Address | City/State/Zipcode | Phone Number | | Organization | | | | + +---------+ + + | [facility] | | | | + +---------+ + + documented in this encounter Visit Diagnoses + + | Diagnosis | + + | Preoperative clearance - Primary Preoperative examination, unspecified | + + | Lumbar radiculopathy Thoracic or lumbosacral neuritis or radiculitis, unspecified | + + | Foraminal stenosis of lumbar region Spinal stenosis, lumbar region, without | | neurogenic claudication | + + | Pseudoarthrosis of lumbar spine Nonunion of fracture | + + | Right foot drop Other acquired deformity of ankle and foot | + + | S/P lumbar fusion Arthrodesis status | + + | Controlled diabetes mellitus type 2 with complications, 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
--- OUTSIDE RECORDS SUMMARY | ~2020-02-04 | XMS | Encounter Summary ---
Demographics + + + | Address | [address] | | | [place] [address] | + + + | Home Phone | | + + + | Preferred Language | Unknown | + + + | Marital Status | | + + + | Religion Affiliation | CHR | + + + | Race | White | + + + | Ethnic Group | Not or | + + + Author + + + | Author | [facility] | + + + | Organization | [facility] | + + + | Address | Unknown | + + + | Phone | Unavailable | + + + Support + + +---------+ + | Name | Relationship | Address | Phone | + + +---------+ + | Leslie Lentz | ECON | Unknown | | + + +---------+ + Care Team Providers + +------+ + | Care Transfer Knitter Name | Role | Phone | + +------+ + | Aggie Dunn SHYANN | PCP | | + +------+ + Reason for Visit + +--------+ + | Reason | Onset | Comments | | | Date | | + +--------+ + | Telephone follow-up | 01/31/ | seen by Dr. Ferguson | | | 2020 | | + +--------+ + Encounter Details +--------+ + + + + | Date | Type | Department | Care Team | Description | +--------+ + + + + | 01/31/ | Telephone | [facility] | Tammy Bagley, | Telephone follow-up | | 2020 | | [facility] at | [address] | (seen by Dr. Ferguson) | | | | [facility] [address] | [facility] | | | | | [address] | [place], [place] | | | | | [facility] [place], [facility] | [address] | | | | | [place], [place] | [phone] | | | | | [address] | | | +--------+ + + + [...] this encounter Miscellaneous Notes Telephone Encounter - Tammy Bagley MD - 02/01/2020 11:[address] Ferguson - doing well - attached palnning oil out in 1 month with MD Kaya Zuñiga [facility]. documented in this encounter Plan of Treatment Not on filedocumented as of this encounter Visit Diagnoses Not on filedocumented in this encounter"
--- OUTSIDE RECORDS SUMMARY | ~2020-02-04 | XMS | Encounter Summary ---
Demographics + + + | Address | [address] | | | [place] [address] | + + + | Home Phone [...] [place] | | | | | [address] | | + + + + + | Leslie Lentz | ECON | Unknown | | + + + + + Care Team Providers + +------+ + | Care Drop Wire Builder Name | Role | Phone | + +------+ + PCP | Unavailable | + +------+ + Encounter Details +--------+ + + + + | Date | Type | Department | Care Team | Description | +--------+ + + + + | 11/07/ | Orders Only | [facility] | Kai Gillespie MD | Lumbar radiculopathy | | 2018 | | NEUROSURGERY [address] | [address] | (Primary Dx); | | | | [address] | [place] [address] | Foraminal stenosis | | | | [place] | [phone] | of lumbar region; | | | | [address] | | Pseudoarthrosis of | | | | [phone] | | lumbar spine; Right | | | | | | foot drop; S/P | | | | | | lumbar fusion; | | | | | | Controlled diabetes | | | | | | mellitus type 2 with | | | | | | complications, | | | | | | unspecified whether | | | | | | 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 | [facility] | | COMPARISON: Multiple priors. Findings: Heart size and aorta are | | | normal. Mediastinum is unremarkable. Central pulmonary vasculature is | | | normal. Moderate scarring is in the right middle lung lobe. The left | | | lung is clear. Moderate elevation of the right hemidiaphragm is | | | observed. Fusion hardware is in the cervical spine. There is mild | | | right curvature of the thoracic spine along with minimal spondylosis. | | | Kyphoplasty material is in the T10 vertebral body. IMPRESSION - | | | No acute findings. Dictated and Signed by: Neri Degroot MD | | | Electronically signed: 11/08/2017 12:04 PM | | + + + + + | Procedure Note | + + | Arnaldo, Rad Results In - 11/08/2017 12:08 PM PDT XR CHEST PA AND LATERAL 11/08/2017 11:39 | | AMHISTORY: Pre-op.COMPARISON: Multiple priors.Findings:Heart size and aorta are normal. | | Mediastinum is unremarkable. Central pulmonaryvasculature is normal. Moderate scarring | | is in the right middle lung lobe. Theleft lung is clear. Moderate elevation of the right | | hemidiaphragm is observed.Fusion hardware is in the cervical spine. There is mild right | | curvature of thethoracic spine along with minimal spondylosis. Kyphoplasty material is | | in theT10 vertebral body.IMPRESSION -No acute findings.Dictated and Signed by: Neri | | MD Zane Electronically signed: 11/08/2017 12:04 PM | |vasculature is normal. Moderate scarring is in the right middle lung lobe. The | |left lung is clear. Moderate elevation of the right hemidiaphragm is observed. | |Fusion hardware is in the cervical spine. There is mild right curvature of the | |thoracic spine along with minimal spondylosis. Kyphoplasty material is in the | |T10 vertebral body. | | | |IMPRESSION - | |No acute findings. | | | |Dictated and Signed by: Neri Degroot MD | | Electronically signed: 11/08/2017 12:04 PM | + + + +---------+ + + | Performing | Address | City/State/Zipcode | Phone Number | | Organization | | | | + +---------+ + + | [facility] | | | | + +---------+ + + CBC with Differential (11/08/2017 11:19 AM PDT) [...] | | | | g/dL | [facility] | | | | | | MEDICAL | | | | | | CENTER - | | | | | | LABORATORY | | + +-------+ + + + | Hematocrit | 46.7 | 40.0 - 51.0 % | [facility] | | | | | | [facility] | | [...] | | Eosinophils | | K/uL | [facility] | | | | | | MEDICAL | | | | | | CENTER - | | | | | | LABORATORY | | + +-------+ + + + | Absolute | 0.00 | 0.00 - 0.10 | [facility] | | | Basophils | | K/uL | [facility] | [...] + | [facility] | [address] | [place] | [phone] | | [facility] | | [address] | | | - LABORATORY | | [...] mg/dL | [facility] | | | | | | [facility] | | | | | | MEDICAL | | | | | | CENTER - | | | | | | LABORATORY | | + + + + + + | BUN | 30 (H) | 7 - 18 mg/dL | [facility] | | | | | | [facility] [...] mL/min/1.73m2 | [facility] | | | [place] | RATE,ESTIMATED | | MEDICAL | | | | mL/min/1.15z5Ddmh than | | CENTER - | | [...] | | | | | mg/dL | [facility] | | | | | | MEDICAL | | | | | | CENTER - | | | | | | LABORATORY | | + + + + + + | BUN/Creatin | 32.6 | | [facility] | | | ine Ratio | | | [facility] | | [...] + | [facility] | [address] | [place] | [phone] | | [facility] | | [address] | | | - LABORATORY | | [...] | | | | SAÚL MILLAN MD ([id number]) | | | | | | on [...] mellitus type 2 with complications, unspecified whether contract engineer | | insulin use (HCC) | + + | Diabetes mellitus of other type with complication, unspecified whether contract engineer | | insulin use | + + | Lumbar facet joint pain Other symptoms referable to back | + + | Obstructive sleep apnea syndrome Obstructive sleep apnea (adult) (pediatric) | + + | Essential hypertension Unspecified essential hypertension | + + documented in this encounter"
--- OUTSIDE RECORDS SUMMARY | ~2020-02-04 | XMS | Encounter Summary ---
Demographics + + + | Address | [address] | | | [place] [address] | + + + | Home Phone | | + + + | Preferred Language | Unknown | + + + | Marital Status | | + + + | Confucianist Affiliation | 1013 | + + + | Race | White | + + + | Ethnic Group | Not or | + + + Author + + + | Author | [facility] | | | and [place] | + + + | Organization | [facility] | | | [...] [address] | | | | | [place] | | | | | [address] | | + + + + + | Leslie Lentz | ECON | Unknown | | + + + + + Care Team Providers + +------+ + | Care Management Professional Name | Role | Phone | + +------+ + PCP | Unavailable | + +------+ + Reason for Visit + + + | Reason | Comments | + + + | New Patient | L5-S1 ALIF, Posterior Hardware Revision with Iliac Fixation | + + + Evaluate & Treat (Routine) +--------+ + + + + + | Status | Reason | Specialty | Diagnoses / | Referred By | Referred To | | | | | Procedures | Contact | Contact | +--------+ + + + + + | Closed | Specialty | Surgery / | Diagnoses | Kai Gillespie | [facility], | | | Services | General | Lumbar | MD [address] | aNno Bates, | | | Required | Surgery | radiculopath | [address] | [address] | | | [address] | [place], | [address] | | | | | stenosis of | [place] [address] | [place], | | | | | lumbar | Phone: | [place] [address] | | | | | region | [phone] | Phone: | | | | | Pseudoarthro | Fax: | [phone] | | | | | sis of | [phone] | Fax: | | | | | lumbar spine | | [phone] | | | | | Right foot | | | | | | | drop | | | | | | | Lumbar facet | | | | | | | joint pain | | | +--------+ + + + + + Encounter Details +--------+---------+ + + + | Date | Type | Department | Care Team | Description | +--------+---------+ + + + | 11/08/ | Office | [facility] | Kai Gillespie MD | Foraminal stenosis | | 2018 | Visit | SURGERY [address] | [address] | of lumbar region | | | | [address] | [place] [address] | (Primary Dx); Right | | | | [address] | [phone] | foot drop; S/P | | | | [phone] | | lumbar fusion; | | | | | Nano Connelly, | Obesity (BMI | | | | | MD [address] | 30-39.9); Lumbar | | | | | [address] | facet joint pain; | | | | | [address] | Lumbar radiculopathy | | | | | | | [...] + + + | Blood Pressure | 106/60 | 11/08/2017 8:31 AM | | | | | PDT | | + + + + + | Pulse | 91 | 11/08/2017 8:31 AM | | | | | PDT | | + + + + + | Temperature | 36.4 C (97.5 F) | 11/08/2017 8:31 AM | | | | | PDT | | + + + + + | Respiratory Rate | - | - | | + + + + + | Oxygen Saturation | 97% | 11/08/2017 8:31 AM | | | | | PDT | | + + + + + | Inhaled Oxygen | - | - | | | Concentration | | | | + + + + + | Weight | 116.2 kg (256 lb 2.8 | 11/08/2017 8:31 AM | | | | oz) | PDT | | + + + + + | Height | 193 cm (6' 4") | 11/08/2017 8:31 AM | | | | | PDT | | + + + + + | Body Mass Index | 31.18 | 11/08/2017 8:31 AM | | | | | PDT [...] documented as of this encounter Progress Notes Nano Connelly MD - 11/08/2017 8:30 AM PDT Consult Note Referring Provider: Kai Gillespie MD HISTORY OF PRESENT ILLNESS Lele Long is a 57 y.o. male patient of Paulo Rothman here today for ev aluation of L5-S1 ALIF, Posterior Hardware Revision with Iliac Fixation. Physician notes: Fredis is here today for evaluation for anterior exposure for ALIF L5-S1. He is status post l umbar fusion 1 year ago who has improved pain but continues to have right foot drop and weak ness. He's been evaluated by Dr. Gillespie and imaging shows failed fusion of the L5-S1 with loos ened S1 hardware. He has been deemed a good candidate for revision surgery. I have been co nsulted to provide the anterior exposure for that surgery. Fredis normally has a bowel movement most every day. No significant constipation. Prior chol ecystectomy. He has successfully lost almost 125 pounds excess body weight. He has excess skin on his abdomen and his BMI is now 31. CT scan and MRI images are reviewed by me today in the office. OPAL Score: 2, patient states he was diagnosed with sleep apnea but does not use his CPAP. H e lost weight and feels much better. He was seen by Dr. Haynes, in [place]. Imaging/ Pathology: MRI Lumbar Spine on 08/25/17 at [facility] At the L5-S1 level, there has been interval placement of prosthetic within the disc space s jazzy the prior MRI. There is mild residual grade 1 anterolisthesis of L5 on S1 which is not significantly changed compared to the prior MRI however this is much less pronounced compare d to the most recent plain films. There is some residual apparent disc bulging which appears similar to the prior exam and effaces the anterior epidural fat with no mass effect upon th e anterior thecal sac or S1 nerve roots. There has been interval placement of bilateral puga spedicular screw at L5 appears to extend below the level of the pedicle and the right- sided screw extends along the inferior margin of the pedicle as seen and discussed on the CT repo rt. Impression: 1. Interval postoperative changes both anteriorly and posteriorly at the levels form L3 thr ough S1 as discussed in the detail above. As noted on the report from today's CT, the transp edicular screw on the left at L5 at L5 appear to extend inferior to the left L5 pedicure whi le the right L5 screw appear to extend along the inferior margin of the pedicle. Comparison of the exiting L5 nerve roots especially on the left is possible. 2. Marked disc space narrowing with endplate degenerative changes along with small disc bul ges at T10-11, T11-12 and L2-3 are also unchanged. 3. Moderate compression deformity of T10 with residual bone marrow edema appears similar to the thoracic spine MRI of June however there has been interval kyphoplasty at this level. No recent compression deformity is evident. Abdiel Dillard. Paulo Rothman's notes were reviewed in clinic today. PAST MEDICAL HISTORY Past Medical History: Diagnosis Date Anxiety Depression Diabetes mellitus (HCC) Diabetes type 2, controlled (HCC) Graves disease Hearing deficit HTN (hypertension) Lumbar facet joint pain Lumbar radiculopathy MRSA (methicillin resistant Staphylococcus aureus) Peroneal neuropathy RLS (restless legs syndrome) Sleep apnea not used since weight loss Vision disorder deficit Wears dentures upper Past Surgical History: Procedure Laterality Date CHOLECYSTECTOMY 1998 [facility] HIP ARTHROPLASTY 2000 Dr. Castañeda HIP ARTHROPLASTY 2003 Dr. Castañeda LUMBAR SPINE SURGERY Left 11/11/2016 Procedure: L3-4 Lateral Anterior Interbody Fusion, L3-4 Lumbar Decompression & Fusion, L5- S1 Transforaminal Lumbar Interbody Fusion; Surgeon: Kai Gillespie MD; Location: [facility] MAIN OR LUMBAR SPINE SURGERY 1999 [facility] LUMBAR SPINE SURGERY 2014 [facility] TOE AMPUTATION Bilateral 2013, 2016 Dr. Elisabeth Moser TONSILLECTOMY VASECTOMY Allergies: Allergies Allergen Reactions Morphine Swelling Joint swelling Oxycodone Other (See Comments) Tremor with the long acting kind. Does fine with plain oxycodone or percocet. Medications: Outpatient Encounter Prescriptions as of 11/08/2017 Medication Sig Dispense Refill aspirin 81 mg EC tablet Take 81 mg by mouth Daily. cholecalciferol (VITAMIN D-3) 2000 units TABS Take 2,000 Units by mouth Daily. DULoxetine (CYMBALTA) [address] capsule Take 60 mg by mouth Daily. 0 gabapentin (NEURONTIN) 300 mg capsule Take 2 capsules by mouth 3 times daily. 180 capsu le 1 HYDROcodone-acetaminophen (NORCO) 10-325 mg per tablet Take 1-2 tablets by mouth every 4 hours as needed for Pain. 45 tablet 0 insulin detemir (LEVEMIR) 100 units/mL injection (vial) Inject 80 Units under the skin 2 times daily. irbesartan-hydrochlorothiazide (AVALIDE) 150-12.5 MG per tablet Take 1 tablet by mouth Daily. lactulose 10 g/15 mL solution Take 30 mLs by mouth 2 times daily. 240 mL 3 [DISCONTINUED] LORazepam (ATIVAN) 0.5 mg tablet Take 1-2 tablets by mouth Twice daily as needed for Anxiety. 30 tablet 0 [DISCONTINUED] LORazepam (ATIVAN) 1 mg tablet Take 0.5-1 tablets by mouth Twice daily as needed for Anxiety. 0 magnesium, as oxide, 250 MG tablet Take 250 mg by mouth Daily. metFORMIN (GLUCOPHAGE) 1000 MG tablet Take 1,000 mg by mouth 2 times daily (with breakf ast & dinner). NOVOLIN N 100 UNIT/ML injection Inject under the skin 3 times daily (before meals). Sl iding scale 3 potassium 99 mg tablet Take 99 mg by mouth Daily. No facility-administered encounter medications on file as of 11/08/2017. Family History Problem Relation Age of Onset Other cancer Father STOMACH Other (see comment) Mother BOWEL DISORDER No Known Problems Paternal Grandfather No Known Problems Paternal Grandmother No Known Problems Maternal Grandfather No Known Problems Maternal Grandmother Diabetes, NIDDM Sister No Known Problems Brother No Known Problems Brother No Known Problems Child Social History Social History Marital status: Spouse name: BINA LONG Number of children: 1 Years of education: 12 Occupational History FO[employer] DISABLED Social History Main Topics Smoking status: Former Smoker Packs/day: 1.00 Types: Cigarettes Quit date: 08/25/2006 Smokeless tobacco: Never Used Alcohol use 0.0 oz/week Comment: once a month Drug use: No Sexual activity: Yes Other Topics Concern None Social History Narrative None REVIEW OF SYSTEMS: Unmarked boxes mean negative response. General: [x]Weight loss/gain (over 10 lbs) []Fever/chills [x]Night sweats Hematologic: []Bleeding/brusing tendencies []Blood transfusion []Anemia Heent: []Vision loss []Hearing loss []Sinus problems/nose bleeds []Hoarseness Respiratory: []Wheezing []Shortness of breath []Cough []Spitting up blood []On oxygen []Use CPAP machine Cardiac: []Chest pain []Palpitations/heart racing []Swelling of ankles/hands []Unusual shortness of breath []Difficulty sleeping flat Gastrointestinal: []Nausea/vomiting []Difficulty swallowing []Heartburn []Loss of appetite []Abdominal pain []Stomach Ulcers []Diarrhea [x]Constipation []Sesar ck or bloody stools Vascular: []Strokes/TIAs []Fainting []Difficulty with speech [x]Leg cramps []Pain in feet/legs at rest []Foot ulcers/s ores []Varicose veins []Phlebitis/blood clots Musculoskeletal: []Joint stiffness/swelling [x]Joint pain [x]Back pain [x]Arthritis []Gout Urologic: []Blood in urine []Frequent urination at night []Burning/painful urination []Kidney stones []Difficult urination []Sexual difficulties Neuro/Psychiatric: []Headaches []Seizures [x]Depression []Anxiety attacks []Memory loss or confusion PHYSICAL EXAM BP 106/60 | Pulse 91 | Temp 36.4 C (97.5 F) (Temporal) | Ht 1.93 m (6' 4") | Wt 116 .2 kg (256 lb 2.8 oz) | SpO2 97% | BMI 31.18 kg/m General Appearance: Alert, cooperative, no distress, appears older than stated age, trunca l obesity Skin: Warm and dry Head: Normocephalic, without obvious abnormality, atraumatic Eyes: conjunctiva/corneas clear, EOM's intact Ears: Adequate hearing bilateral Nose: Nares normal, septum midline Neck: Symmetric, no adenopathy Lymph nodes Cervical and supraclavicular nodes normal Lungs: Breath sounds are clear to auscultation bilaterally, no wheezes, crackles Chest Wall: No tenderness or deformity, no pacemaker Heart: Regular rate and rhythm, S1, S2 normal, no murmur Abdomen: Soft, non-tender. Truncal obesity, excess skin, no hernias appreciated. 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 Diagnoses and all orders for this visit: Foraminal stenosis of lumbar region Right foot drop S/P lumbar fusion Obesity (BMI 30-39.9) Lumbar facet joint pain Lumbar radiculopathy 57-year-old male who had lumbar fusion a year ago and requires revision for continued foot drop and weakness that was not improved after surgery. I explained to him the risks, benefi ts, and alternatives to anterior exposure for lumbar interbody fusion and his questions were answered. The risks we discussed include but are not limited to bleeding, infection, fluid collection including hematoma seroma or lymphocele, nerve injury resulting in bladder or kathy wel or sexual dysfunction, bleeding resulting in massive blood loss and requiring a transfus ion, unforeseen complications, wound healing complications, hernia, pain, scar, unforeseen c omplications and . He understands the risks and wishes to proceed. He signed a consen t for the procedure. I gave him directions for a bowel prep to be taken the day before surgery. Return to clinic on an as-needed basis after surgery. Nano Connelly MD CC PCP: Paulo Rothman CC Ref Prov: Kai Gillespie MD Portions of this chart may have been created with [employer] voice recognition software. Occasi onal wrong-word or sound-alike substitutions may have occurred due to the inherent rose itations of voice recognition software. Please read the chart carefully and recognize, using context, where these substitutions have occurred. documented in this encounter Plan of Treatment + + +--------+ + + | Name | Type | Priori | Associated Diagnoses | Order Schedule | | | | ty | | | + + +--------+ + + | * [facility] General | Outpatient | Routin | Lumbar | Ordered: 09/14/2017 | | Surgery - AMB | Referral | e | radiculopathy | | | Referral | | | Foraminal stenosis | | | | | | of lumbar region | | | | | | Pseudoarthrosis of | | | | | | lumbar spine Right | | | | | | foot drop Lumbar | | | | | | facet joint pain | | + + +--------+ + + documented as of this encounter Visit Diagnoses + + | Diagnosis | + + | Foraminal stenosis of lumbar region - Primary Spinal stenosis, lumbar region, without | | neurogenic claudication | + + | Right foot drop Other acquired deformity of ankle and foot | + + | S/P lumbar fusion Arthrodesis status | + + | Obesity (BMI 30-39.9) Obesity, unspecified | + + | Lumbar facet joint pain Other symptoms referable to back | + + | Lumbar radiculopathy Thoracic or lumbosacral neuritis or radiculitis, unspecified | + + documented in this encounter
--- OUTSIDE RECORDS SUMMARY | ~2020-02-04 | XMS | Clinical Summary ---
Demographics + + + | Address | [address] | | | [place] [address] | + + + | Home Phone | | + + + | Preferred Language | Unknown | + + + | Marital Status | | + + + | Mormon Affiliation | 1013 | + + + | Race | White | + + + | Ethnic Group | Not or | + + + Author + + + | Author | [facility] | | | and [place] | + + + | Organization | [facility] | | | and [...] [place] | | | | | [address] | | + + + + + | Andres Lentz | ECON | Unknown | | + + + + + Care Team Providers + +------+ + | Care Sales Trader Name | Role | Phone | + +------+ + | Aggie Dunn NP | PCP | | + +------+ + Allergies + + + + + + | Active Allergy | Reactions | Severity | Noted | Comments | | | | | Date | | + + + + + + | Codeine | Other (See | Medium | 12/06/19 | "makes my skin | | | Comments), Rash | | 16 | crawl" "makes my | | | | | | skin crawl" "makes | | | | | | my skin crawl" | | | | | | "makes my skin | | | | | | crawl" "makes my | | | | | | skin crawl" "makes | | | | | | my skin crawl" | | | | | | "makes my skin | | | | | | crawl" "makes my | | | | | | skin crawl" "makes | | | | | | my skin crawl" | | | | | | "makes my skin | | | | | | crawl" "makes my | | | | | | skin crawl" "makes | | | | | | my skin crawl" | + + + + + + | Morphine | Swelling, Other (See | Medium | 07/14/19 | Joint swelling | | | Comments) | | 17 | Joint swelling | | | | | | Joint swelling | | | | | | Joint swelling | | | | | | Joint pain Joint | | | | | | swelling Joint | | | | | | swelling Joint | | | | | | swelling Joint | | | | | | swelling Joint pain | | | | | | Joint swelling | + + + + + + | Oxycodone | Other (See | Medium | 04/28/19 | Tremor with the | | | Comments), Nausea | | 18 | long acting kind. | | | And Vomiting | | | Does fine with | | | | | | plain oxycodone or | | | | | | percocet. Tremors | | | | | | Tremors | + + + + + + Medications + + + +---------+------+------+-------+ | Medication | Sig | Dispensed | Refills | Star | End | Statu | | | | | | t | Date | s | | | | | | Date | | | + + + +---------+------+------+-------+ | DULoxetine | Take 60 mg by mouth | | 0 | 01/2 | | Activ | | (CYMBALTA) [address] | Daily. | | | 5/20 | | e | | capsule | | | | 17 | | | + + + +---------+------+------+-------+ | metFORMIN | Take 1,000 mg by | | 0 | 09/2 | | Activ | | (GLUCOPHAGE) 1000 MG | mouth 2 times daily | | | /20 | | e | | tablet | (with breakfast & | | | 16 | | | | | dinner). | | | | | | + + + +---------+------+------+-------+ | insulin detemir | Inject 80 Units | | 0 | 09/0 | | Activ | | (LEVEMIR) 100 | under the skin 2 | | | 1/20 | | e | | units/mL injection | times daily. | | | 16 | | | | (vial) | | | | | | | + + + +---------+------+------+-------+ | cholecalciferol | Take 2,000 Units by | | 0 | | | Activ | | (VITAMIN D-3) 2000 | mouth Daily. | | | | | e | | units TABS | | | | | | | + + + +---------+------+------+-------+ | aspirin 81 mg EC | Take 81 mg by mouth | | 0 | | | Activ | | tablet | Daily. | | | | | e | + + + +---------+------+------+-------+ | potassium 99 mg | Take 99 mg by mouth | | 0 | | | Activ | | tablet | Daily. | | | | | e | + + + +---------+------+------+-------+ | magnesium, as | Take 250 mg by mouth | | 0 | | | Activ | | oxide, 250 MG tablet | Daily. | | | | | e | + + + +---------+------+------+-------+ | gabapentin | Take 1 capsule by | 90 | 1 | 08/2 | | Activ | | (NEURONTIN) 300 mg | mouth 3 times daily. | capsule | | 7/20 | | e | | capsule | | | | 18 | | | + + + +---------+------+------+-------+ | insulin lispro | Inject 0-15 Units | | 0 | | | Activ | | (HUMALOG KWIKPEN) | under the skin | | | | | e | | 100 units/mL | nightly. Per sliding | | | | | | | injection (pen) | scale:150-200= 0 | | | | | | | | cpulr161-147= 3 | | | | | | | | topxb451-410= 6 | | | | | | | | anooc000-065= 9 | | | | | | | | junzr908-937= 12 | | | | | | | | wdunj154-798= 15 | | | | | | | | units | | | | | | + + + +---------+------+------+-------+ | insulin lispro | Inject 3-18 Units | | 0 | | | Activ | | (HUMALOG KWIKPEN) | under the skin 3 | | | | | e | | 100 units/mL | times daily (before | | | | | | | injection (pen) | meals). Per sliding | | | | | | | | scale:150-200= 3 | | | | | | | | -124= 6 | | | | | | | | zkbaq861-273= 9 | | | | | | | | -009= 12 | | | | | | | | ylglb910-057= 15 | | | | | | | | [id number]= 18 | | | | | | | | units | | | | | | + + + +---------+------+------+-------+ | | Take 1 tablet by | | 0 | | | Activ | | losartan-hydrochloro | mouth Daily. | | | | | e | | thiazide (HYZAAR) | | | | | | | | 50-12.5 MG per | | | | | | | | tablet | | | | | | | + + + +---------+------+------+-------+ | acetaminophen | Take 500-1,000 mg by | | 0 | | | Activ | | (TYLENOL) 500 mg | mouth every 8 hours | | | | | e | | tablet | as needed for Pain | | | | | | | | or Fever. | | | | | | + + + +---------+------+------+-------+ | glucagon (GLUCAGON | Inject 1 mg into the | | 0 | | | Activ | | EMERGENCY) 1 MG | muscle as needed | | | | | e | | injection | (for blood sugar | | | | | | | | less than 60 and | | | | | | | | unresponsive). | | | | | | + + + +---------+------+------+-------+ | cyclobenzaprine | Take 0.5-1 tablets | 90 | 2 | 09/1 | | Activ | | (FLEXERIL) 10 mg | by mouth 3 times | tablet | | 2/20 | | e | | tablet | daily as needed for | | | 18 | | | | | Muscle spasms. | | | | | | + + + +---------+------+------+-------+ | lactulose 10 g/15 | Take 30 mLs by mouth | 240 mL | 2 | 09/1 | | Activ | | mL solution | 2 times daily. For | | | 2/20 | | e | | | constipation | | | 18 | | | + + + +---------+------+------+-------+ | vancomycin IVPB | Inject 1.5 g into | 56 each | 0 | 09/1 | | Activ | | 1.5 gIndications: | the vein every 12 | | | 2/20 | | e | | Complicated Skin & | hours. Indications: | | | 18 | | | | Skin Structure Inf. | Complicated Skin & | | | | | | | caused by MRSA, | Skin Structure Inf. | | | | | | | Diabetes Mellitus, | caused by MRSA, | | | | | | | Infection, | Diabetes, Infection, | | | | | | | dehiscence of | dehiscence of | | | | | | | surigical wound with | surigical wound with | | | | | | | MRSA and DM hx. | MRSA and DM hx. | | | | | | | Culture pending for | Culture pending for | | | | | | | gram positive cocci | gram positive cocci | | | | | | | on abdominal | on abdominal | | | | | | | incision | incision | | | | | | + + + +---------+------+------+-------+ | traMADol (ULTRAM) | | | 0 | 08/0 | | Activ | | 50 mg tablet | | | | 6/20 | | e | | | | | | 18 | | | + + + +---------+------+------+-------+ | | Take 1-2 tablets by | 120 | 0 | 10/0 | | Activ | | HYDROcodone-acetamin | mouth every 4 hours | tablet | | 3/20 | | e | | ophen (NORCO) 10-325 | as needed for Pain. | | | 18 | | | | mg per tablet | | | | | | | + + + +---------+------+------+-------+ | | | | 0 | 11/0 | | Activ | | irbesartan-hydrochlo | | | | 2/20 | | e | | rothiazide (AVALIDE) | | | | 18 | | | | 150-12.5 MG per | | | | | | | | tablet | | | | | | | + + + +---------+------+------+-------+ | doxycycline | Take 100 mg by | | 0 | | | Activ | | (VIBRAMYCIN) 100 mg | mouth. | | | | | e | | capsule | | | | | | | + + + +---------+------+------+-------+ | ibuprofen | | | 0 | 10/0 | | Activ | | (ADVIL,MOTRIN) 600 | | | | 4/20 | | e | | MG tablet | | | | 16 | | | + + + +---------+------+------+-------+ | Ascorbic Acid | Take 1,000 mg by | | 0 | | | Activ | | (VITAMIN C) 1000 MG | mouth Daily. | | | | | e | | tablet | | | | | | | + + + +---------+------+------+-------+ | cyanocobalamin | Take 1,000 mcg by | | 0 | | | Activ | | (VITAMIN B-12) 1000 | mouth. | | | | | e | | MCG tablet | | | | | | | + + + +---------+------+------+-------+ | Ascorbic Acid (QC | Take 1,000 mg by | | 0 | | | Activ | | VITAMIN C WITH AMAN | mouth | | | | | e | | HIPS PO) | | | | | | | + + + +---------+------+------+-------+ | Alum & Mag | Take 30 mLs by mouth | | 0 | 01/2 | | Activ | | Hydroxide-Simeth | every 6 (six) hours | | | 9/20 | | e | | (ANTACID & ANTIGAS) | as needed. | | | 19 | | | | 200-200-20 MG/5ML | | | | | | | | SUSP | | | | | | | + + + +---------+------+------+-------+ | atorvaSTATin | Take 40 mg by mouth | | 0 | / | | Activ | | (LIPITOR) 40 mg | daily. | | | 01/12 | | e | | tablet | | | | 18 | | | + + + +---------+------+------+-------+ | dicyclomine | Take 1 capsule (10 | | 0 | 03/3 | | Activ | | (BENTYL) 10 mg | mg total) by mouth 4 | | | /20 | | e | | capsule | times daily | | | 19 | | | + + + +---------+------+------+-------+ | insulin NPH | Inject 80 Units into | | 0 | 03/1 | | Activ | | (NOVOLIN N) 100 | the skin 2 times | | | /20 | | e | | units/mL injection | daily | | | 19 | | | + + + +---------+------+------+-------+ | magnesium oxide | EQL | | 0 | | | Activ | | 250 MG TABS | MAGNESIUM(MAGNESIUM | | | | | e | | | OXIDE) 250 MG | | | | | | | | TABLETDose: 1 TAB | | | | | | + + + +---------+------+------+-------+ | sucralfate | Take 1 tablet by | | 0 | 03/3 | | Activ | | (CARAFATE) 1 g | mouth 4 (four) times | | | 1/20 | | e | | tablet | daily for 14 days. | | | 19 | | | + + + +---------+------+------+-------+ | acetaminophen | Take 500-1,000 mg by | | 0 | | | Activ | | (TYLENOL) 500 mg | mouth as needed | | | | | e | | tablet | | | | | | | + + + +---------+------+------+-------+ | cholecalciferol | Take 2,000 Units by | | 0 | | | Activ | | (CHOLECALCIFEROL) | mouth | | | | | e | | 2000 units TABS | | | | | | | + + + +---------+------+------+-------+ | glucagon (GLUCAGON | Inject 1 mg into the | | 0 | | | Activ | | EMERGENCY) 1 MG | muscle | | | | | e | | injection | | | | | | | + + + +---------+------+------+-------+ | | | | 0 | 07/3 | | Activ | | HYDROcodone-acetamin | | | | 0/20 | | e | | ophen (NORCO) 5-325 | | | | 19 | | | | mg per tablet | | | | | | | + + + +---------+------+------+-------+ | insulin lispro | Inject under the | | 0 | | | Activ | | (HUMALOG KWIKPEN) | skin. | | | | | e | | 100 units/mL | | | | | | | | injection (pen) | | | | | | | + + + +---------+------+------+-------+ | | Take 1 tablet by | | 0 | 03/0 | | Activ | | irbesartan-hydrochlo | mouth. | | | 4/20 | | e | | rothiazide (AVALIDE) | | | | 19 | | | | 150-12.5 MG per | | | | | | | | tablet | | | | | | | + + + +---------+------+------+-------+ | lactulose 10 g/15 | Take 20 g by mouth. | | 0 | 09/1 | | Activ | | mL solution | | | | 2/20 | | e | | | | | | 18 | | | + + + +---------+------+------+-------+ | metFORMIN | Take 1,000 mg by | | 0 | 09/2 | | Activ | | (GLUCOPHAGE) 1000 MG | mouth. | | | 9/20 | | e | | tablet | | | | 16 | | | + + + +---------+------+------+-------+ | potassium 99 mg | 99 mg. | | 0 | | | Activ | | tablet | | | | | | e | + + + +---------+------+------+-------+ Active Problems + + + | Problem | Noted Date | + + + | Epigastric pain | 10/16/2018 | + + + | Family history of colon cancer in mother | 08/24/2018 | + + + + + | Overview: Added automatically from request for surgery [id number] | + + + + + | Thyroid nodule | 07/10/2018 | + + + | History of stress test | 05/24/2018 | + + + + + | Overview: Mild global hypokinesia | + + + + + | Atypical chest pain | 05/22/2018 | + + + | Hypertensive urgency | 05/22/2018 | + + + | Poorly controlled diabetes mellitus | 05/22/2018 | + + + | Hyperglycemia without ketosis | 05/22/2018 | + + + | Right flank pain | 04/22/2018 | + + + | Acute renal failure | 01/23/2018 | + + + | Wound infection complicating hardware | 01/23/2018 | + + + | Type 2 diabetes mellitus with complication, with long-term | 01/10/2018 | | current use of insulin | | + + + | Compression fracture of thoracic vertebra | 11/18/2017 | + + + | Other chronic pain | 09/23/2017 | + + + | Uncomplicated opioid dependence | 09/23/2017 | + + + | Foraminal stenosis of lumbar region | 09/13/2017 | + + + | Pseudoarthrosis of lumbar spine | 09/13/2017 | + + + | Right foot drop | 08/16/2017 | + + + | Panic disorder | 04/20/2017 | + + + | S/P lumbar fusion | 12/08/2016 | + + + | Obesity (BMI 30-39.9) | 11/11/2016 | + + + | Obstructive sleep apnea syndrome | 11/11/2016 | + + + | Other specified anxiety disorders | 05/07/2016 | + + + | Generalized anxiety disorder | 02/09/2016 | + + + | Acidosis | 01/27/2016 | + + + | Anemia, unspecified | 01/27/2016 | + + + | DNR (do not resuscitate) | 01/27/2016 | + + + | Hypokalemia | 01/27/2016 | + + + | Acute kidney failure, unspecified | 01/27/2016 | + + + | AP (abdominal pain) | 12/29/2015 | + + + | Presence of both artificial hip joints | 12/29/2015 | + + + | Muscle weakness (generalized) | 12/23/2015 | + + + | Pain in right hip | 10/27/2015 | + + + | Essential (primary) hypertension | 09/11/2015 | + + + | FPC (current) use of insulin | 07/20/2015 | + + + | Other insomnia | 07/20/2015 | + + + | 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 | 07/20/2015 | + + + | Arthrodesis status | 07/20/2015 | + + + | Major depressive disorder, single episode, unspecified | 06/30/2015 | + + + | Pain in thoracic spine | 06/30/2015 | + + + | Personal history of nicotine dependence | 06/30/2015 | + + + | HTN (hypertension) | | + + + | Diabetes mellitus | | + + + | Lumbar facet joint pain | | + + + | Lumbar radiculopathy | | + + + | MRSA (methicillin resistant Staphylococcus aureus) | | + + + | Anxiety | | + + + | Depression | | + + + | Graves disease | | + + + | Diabetes type 2, controlled | | + + + Immunizations + + + + | Name | Administration Dates | Next Due | + + + + | INFLUENAZ PF | 02/01/2007, 03/08/2006 | | | TRIVALENT | | | | INTRADERMAL | | | + + + + | INFLUENZA PF | 01/26/2017, 02/18/2014 | | | QUAD(PED/ADOL/ADULT) | | | | ,PSKT or VIAL | | | + + + + | INFLUENZA QUADR | 01/20/2018 | | | W/PRES | | | | (PED/ADOL/ADULT) | | | | MULTIDOSE | | | + + + + | INFLUENZA TRIV | 01/26/2016, 02/14/2013, 02/16/2012, | | | W/PRES(PED/ADOL/ADUL | 03/27/2011, 02/01/2007, 03/08/2006 | | | T),MULTIDOSE | | | + + + + | INFLUENZA, | 01/26/2016, 02/14/2013, 02/16/2012, | | | UNSPECIFIED | 03/27/2011, 02/01/2007, 03/08/2006 | | | FORMULATION | | | + + + + | PNEUMOCOCCAL | 01/26/2016 | | | CONJUGATE 13-VALENT | | | | (PCV13) | | | + + + + | PNEUMOCOCCAL | 02/16/2012 | | | POLYSACCHARIDE | | | | 23-VALENT (PPSV23) | | | + + + + | TDAP, (ADOL/ADULT) | 01/26/2016 | | + + + + Family History + + +---------+ + | Medical History | Relation | Name | Comments | + + +---------+ + | No known problems | Brother | | | + + +---------+ + | No known problems | Brother | | | + + +---------+ + | No known problems | Child | | | + + +---------+ + | Other cancer | Father | | STOMACH | + + +---------+ + | No known problems | Maternal | | | | | Grandfath | | | | | er | | | + + +---------+ + | No known problems | Maternal | | | | | Grandmoth | | | | | er | | | + + +---------+ + | Other (see comment) | Mother | SASKIA | BOWEL DISORDER | | | | SAAVEDRA | | + + +---------+ + | No known problems | Paternal | | | | | Grandfath | | | | | er | | | + + +---------+ + | No known problems | Paternal | | | | | Grandmoth | | | | | er | | | + + +---------+ + | Diabetes, NIDDM | Sister | | | + + +---------+ + | Colon cancer | Neg Hx | | | + + +---------+ + | Colon polyps | Neg Hx | | | + + +---------+ + | Malig hypertherm | Neg Hx | | | + + +---------+ + + + + + + | Relation | Name | Status | Comments | + + + + + | Brother | | Alive | | + + + + + | Brother | | Alive | | + + + + + | Brother | | | | + + + + + | Brother | | | | + + + + + | Child | | Alive | | + + + + + | Child | | | | + + + + + | Father | | | | + + + + + | Father | | | | + + + + + | Maternal Grandfather | | | | + + + + + | Maternal Grandmother | | | | + + + + + | Mother | SASKIA | | | | | SAAVEDRA | | | + + + + + | Mother | SASKIA | | | | | SAAVEDRA | | | + + + + + | Paternal Grandfather | | | | + + + + + | Paternal Grandmother | | | | + + + + + | Sister | ANDRES ST. | Alive | | | | JONNATHAN | | | + + + + + | Sister | | Alive | | + + + + + | Sister | | | | + + + + + Social History + [...] | 0 Standard drinks | 0.0 | Alcoholic | | | or equivalent | | Drinks/day: rarely | + + +---------+ + + + + | Sex Assigned at | Date Recorded | | | | + + + | Not on file | | + + + Last Filed Vital Signs + + + + + | Vital Sign | Reading | Time Taken | Comments | + + + + + | Blood Pressure | 146/89 | 10/16/2018 8:12 AM | | | | | PDT | | + + + + + | Pulse | 80 | 10/16/2018 8:12 AM | | | | | PDT | | + + + + + | Temperature | 36.3 C (97.3 F) | 10/16/2018 8:12 AM | | | | | PDT | | + + + + + | Respiratory Rate | 16 | 10/16/2018 8:12 AM | | | | | PDT | | + + + + + | Oxygen Saturation | 96% | 01/04/2018 10:00 AM | | | | | PDT | | + + + + + | Inhaled Oxygen | - | - | | | Concentration | | | | + + + + + | Weight | 118 kg (260 lb 2.2 | 10/16/2018 8:12 AM | | | | oz) | PDT | | + + + + + | Height | 193 cm (6' 4") | 10/16/2018 8:12 AM | | | | | PDT | | + + + + + | Body Mass Index | 31.66 | 10/16/2018 8:12 AM | | | | | PDT | | + + + + + Plan of Treatment + + + + + | Health Maintenance | Due Date | Last | Comments | | | | Done | | + + + + + | Hepatitis C | | | | | Screening | 8 | | | + + + + + | Med Mgmt: Vit D | | | | | | 8 | | | + + + + + | Medication | | | | | Management | 8 | | | + + + + + | Diabetic Eye Exam | | | | | | 6 | | | + + + + + | Diabetic Foot Exam | | | | | | 6 | | | + + + + + | Vaccine: Zoster (1 | | | | | of 2) | 8 | | | + + + + + | Adult Annual | | | | | Wellness Visit | 7 | | | + + + + + | Vaccine: | | 01/26/20 | | | Pneumococcal 19-64 | 7 | 16, | | | (3 of 3 - PPSV23) | | 02/16/20 | | | | | 12 | | + + + + + | Hemoglobin A1c | | 05/22/19 | | | Screening | 9 | 19 | | + + + + + | Med Mgmt: HBA1C | | 05/22/19 | | | | 9 | 19 | | + + + + + | Med Mgmt: BUN | | 10/13/19 | | | | 0 | 19, | | | | | 06/27/19 | | | | | 19, | | | | | 05/23/19 | | | | | 19, | | | | | Addition | | | | | al | | | | | history | | | | | exists | | + + + + + | Med Mgmt: Cr | | 10/13/19 | | | | 0 | 19, | | | | | 06/27/19 | | | | | 19, | | | | | 05/23/19 | | | | | 19, | | | | | Addition | | | | | al | | | | | history | | | | | exists | | + + + + + | Med Mgmt: K | | 10/13/19 | | | | 0 | 19, | | | | | 06/27/19 | | | | | 19, | | | | | 05/23/19 | | | | | 19, | | | | | Addition | | | | | al | | | | | history | | | | | exists | | + + + + + | Med Mgmt: Na | | 10/13/19 | | | | 0 | 19, | | | | | 06/27/19 | | | | | 19, | | | | | 05/23/19 | | | | | 19, | | | | | Addition | | | | | al | | | | | history | | | | | exists | | + + + + + | Med Mgmt: eGFR | | 10/13/19 | | | | 0 | 19, | | | | | 06/27/19 | | | | | 19, | | | | | 05/23/19 | | | | | 19, | | | | | Addition | | | | | al | | | | | history | | | | | exists | | + + + + + | Vaccine: Influenza | | 01/21/20 | | | (#1) | 0 | 18, | | | | | 01/27/20 | | | | | 17, | | | | | 01/26/20 | | | | | 16, | | | | | Addition | | | | | al | | | | | history | | | | | exists | | + + + + + | Colorectal Cancer | | 10/17/19 | | | Screening | 2 | 19 | | | (Colonoscopy) | | | | + + + + + | Vaccine: | | 01/26/20 | | | Dtap/Tdap/Td (2 - | 6 | 16 | | | Td) | | | | + + + + + Implants + +--------+--------+ +--------+--------+--------+ | Implanted | Type | Area | Manufacture | Device | Shelf | Model | | | | | r | | Expira | / | | | | | | Identi | tion | Serial | | | | | | fier | Date | / Lot | + +--------+--------+ +--------+--------+--------+ | Bone Chips 15cc - | Bone | Left: | RTI | | 05/07/ | [id number] | | [id number]: Qty: 1 | | Spine | BIOLOGICS | | 2021 | | | on 11/11/2016 by Kai Gillespie | | Lumbar | INC - GENESIS | | | /[id number] | | MD [facility]wa at [facility] | | | | | | [phone] | | [facility] | | | | | | / | + +--------+--------+ +--------+--------+--------+ | Bone Chips 15cc - | Bone | Left: | RTI | | 02/10/ | [id number] | | [id number]: Qty: 1 | | Spine | BIOLOGICS | | 2021 | | | on 11/11/2016 by Kai Gillespie | | Lumbar | INC - RBIO | | | /[id number] | | MD Awa at [facility] | | | | | | [phone] | | [facility] | | | | | | /[phone] | | | | | | | | 64 | + +--------+--------+ +--------+--------+--------+ | Imp Spn Intbdy Xlw | Generi | Left: | NUVASIVE - | | | [id number] | | [id number] - | c | Spine | NVSV | | | 5 / / | | [id number]: Qty: 1 on | | Lumbar | | | | | | 11/11/2016 by Kai Gillespie | | | | | | | | at [facility] | | | | | | | | [facility] | | | | | | | + +--------+--------+ +--------+--------+--------+ | Tlif Oblique [id number] 12deg | Generi | Left: | NUVASIVE - | | | [id number] | | - [id number]: Qty: 1 | c | Spine | NVSV | | | 2 / / | | on 11/11/2016 by Kai Gillespie | | Lumbar | | | | | | MD Awa at [facility] | | | | | | | | [facility] | | | | | | | + +--------+--------+ +--------+--------+--------+ | [place] Ti Prebent Lordtc 90mm - | Generi | Left: | NUVASIVE - | | | [id number] | | [id number]: Qty: 2 on | c | Spine | NVSV | | | 0 / / | | 11/11/2016 by Kai Gillespie, | | Lumbar | | | | | | MD at [facility] | | | | | | | | [facility] | | | | | | | + +--------+--------+ +--------+--------+--------+ | Imp Spn Intbdy Xlw | Generi | Left: | NUVASIVE - | | | [id number] | | [id number] - | c | Spine | NVSV | | | 5 / / | | [id number]: Qty: 1 on | | Lumbar | | | | | | 11/11/2016 by Kai Gillespie, | | | | | | | | MD at [facility] | | | | | | | | [facility] | | | | | | | + +--------+--------+ +--------+--------+--------+ | Imp Spn Intbdy Brg | Generi | N/A: | NUVASIVE - | | | [id number] | | [id number] - | c | Spine | NVSV | | | 4 / / | | [id number]: Qty: 1 | | Lumbar | | | | | | on 12/15/2017 by Kai Gillespie | | | | | | | | MD Awa at [facility] | | | | | | | | [facility] | | | | | | | + +--------+--------+ +--------+--------+--------+ | [place] Ti Prebent Lordtc 85mm - | Generi | N/A: | NUVASIVE - | | | [id number] | | [id number]: Qty: 1 | c | Spine | NVSV | | | 5 / / | | on 12/15/2017 by Kai Gillespie | | Lumbar | | | | | | MD Awa at [facility] | | | | | | | | [facility] | | | | | | | + +--------+--------+ +--------+--------+--------+ | [place] Ti Prebent Lordtc 90mm - | Generi | N/A: | NUVASIVE - | | | [id number] | | [id number]: Qty: 1 | c | Spine | NVSV | | | 0 / / | | on 12/15/2017 by Kai Gillespie | | Lumbar | | | | | | MD Awa at [facility] | | | | | | | | [facility] | | | | | | | + +--------+--------+ +--------+--------+--------+ | Putty Christie 10cc Dbm - | Graft | Left: | [employer] - | | 08/03/ | [id number] | | [id number]: Qty: 1 | | Spine | MEDT | | 2020 | | | on 11/11/2016 by Kai Gillespie | | Lumbar | | | | /[id number] | | MD Awa at [facility] | | | | | | 5-025 | | [facility] | | | | | | / | + +--------+--------+ +--------+--------+--------+ | Graft Infuse Bone Kit Xs - | Graft | Left: | SOFAMOR | | 01/22/ | [id number] | | [id number]: Qty: 1 on | | Spine | DANEK - DIV | | 2018 | 0 / | | 11/11/2016 by Kai Gillespie, | | Lumbar | [employer] | | | /[id number] | | at [facility] | | | - [facility] | | | [id number] | | [facility] | | | | | | | + +--------+--------+ +--------+--------+--------+ | Graft Infuse Bone Kit Xs - | Graft | Left: | SOFAMOR | | 01/22/ | [id number] | | [id number]: Qty: 1 on | | Spine | DANEK - DIV | | 2017 | 0 / | | 11/11/2016 by Kai Gillespie, | | Lumbar | [employer] | | | /[id number] | | at [facility] | | | - [facility] | | | [id number] | | [facility] | | | | | | | + +--------+--------+ +--------+--------+--------+ | Graft Infuse Bone Kit Xs - | Graft | Left: | SOFAMOR | | 01/22/ | [id number] | | [id number]: Qty: 1 on | | Spine | DANEK - DIV | | 2017 | 0 / | | 11/11/2016 by Kai Gillespie, | | Lumbar | [employer] | | | /[id number] | | at [facility] | | | - [facility] | | | 58AAB | | [facility] | | | | | | | + +--------+--------+ +--------+--------+--------+ | Graft Infuse Bone Kit Xs - | Graft | N/A: | [employer] - | | 10/22/ | [id number] | | [id number]: Qty: 1 | | Spine | MEDT | | 2019 | 0 / | | on 12/15/2017 by Kai Gillespie | | Lumbar | | | | /[id number] | | MD Awa at [facility] | | | | | | 20AAR | | [facility] | | | | | | | + +--------+--------+ +--------+--------+--------+ | Putty Christie 10cc Dbm - | Graft | N/A: | [employer] - | | 07/27/ | [id number] | | [id number]: Qty: 1 | | Spine | MEDT | | 2021 | / | | on 12/15/2017 by Kai Gillespie | | Lumbar | | | | [id number] | | MD Awa at [facility] | | | | | | 3-067 | | [facility] | | | | | | | + +--------+--------+ +--------+--------+--------+ | Screw Set - | Screw | Left: | NUVASIVE - | | | [id number] | | [id number]: Qty: 8 on | | Spine | NVSV | | | 0 / / | | 11/11/2016 by Kai Gillespie | | Lumbar | | | | | | at [facility] | | | | | | | | [facility] | | | | | | | + +--------+--------+ +--------+--------+--------+ | Screw Polyax Prcpt 8.5x55mm - | Screw | Left: | NUVASIVE - | | | [id number] | | [id number]: Qty: 4 | | Spine | NVSV | | | 5A / / | | on 11/11/2016 by Kai Gillespie | | Lumbar | | | | | | MD Awa at [facility] | | | | | | | | [facility] | | | | | | | + +--------+--------+ +--------+--------+--------+ | Screw Polyax Prcpt 7.5x60mm - | Screw | Left: | NUVASIVE - | | | [id number] | | [id number]: Qty: 4 | | Spine | NVSV | | | 0A / / | | on 11/11/2016 by Kai Gillespie | | Lumbar | | | | | | MD Awa at [facility] | | | | | | | | [facility] | | | | | | | + +--------+--------+ +--------+--------+--------+ | Screw Brigade 5.5x25mm - | Screw | N/A: | NUVASIVE - | | | [id number] | | [id number]: Qty: 4 | | Spine | NVSV | | | 5 / / | | on 12/15/2017 by Kai Gillespie | | Lumbar | | | | | | MD Awa at [facility] | | | | | | | | [facility] | | | | | | | + +--------+--------+ +--------+--------+--------+ | Screw Polyax Prcpt 9.5x50mm - | Screw | N/A: | NUVASIVE - | | | [id number] | | [id number]: Qty: 2 | | Spine | NVSV | | | 0A / / | | on 12/15/2017 by Kai Gillespie | | Lumbar | | | | | | MD Awa at [facility] | | | | | | | | [facility] | | | | | | | + +--------+--------+ +--------+--------+--------+ | Screw Polyax Prcpt 8.5x90mm - | Screw | N/A: | NUVASIVE - | | | [id number] | | [id number]: Qty: 2 | | Spine | NVSV | | | 0A / / | | on 12/15/2017 by Kai Gillespie | | Lumbar | | | | | | MD Awa at [facility] | | | | | | | | [facility] | | | | | | | + +--------+--------+ +--------+--------+--------+ | Screw Set - | Screw | N/A: | NUVASIVE - | | | [id number] | | [id number]: Qty: 7 | | Spine | NVSV | | | 0 / / | | on 12/15/2017 by Kai Gillespie | | Lumbar | | | | | | MD Awa at [facility] | | | | | | | | [facility] | | | | | | | + +--------+--------+ +--------+--------+--------+ | Plate Brigade Lord 40mm - | | N/A: | NUVASIVE - | | | [id number] | | [id number]: Qty: 1 | | Spine | NVSV | | | 0 / / | | on 12/15/2017 by Kai Gillespie | | Lumbar | | | | | | MD Awa at [facility] | | | | | | | | [facility] | | | | | | | + +--------+--------+ +--------+--------+--------+ | Screw Plt Brigade 6.5x30mm - | | N/A: | NUVASIVE - | | | [id number] | | [id number]: Qty: 2 | | Spine | NVSV | | | 0 / / | | on 12/15/2017 by Kai Gillespei | | Lumbar | | | | | | MD Awa at [facility] | | | | | | | | [facility] | | | | | | | + +--------+--------+ +--------+--------+--------+ | Screw Plt Brigade 6.5x35mm - | | N/A: | NUVASIVE - | | | [id number] | | [id number]: Qty: 2 | | Spine | NVSV | | | 5 / / | | on 12/15/2017 by Kai Gillespie | | Lumbar | | | | | | MD Awa at [facility] | | | | | | | | [facility] | | | | | | | + +--------+--------+ +--------+--------+--------+ Results Not on filefrom Last 3 Months Insurance + +--------+ +--------+ +---------+--------+ | Payer | Benefi | Subscriber | Effect | Phone | Address | Type | | | t Plan | ID | vonda | | | | | | / | | Dates | | | | | | Group | | | | | | + +--------+ +--------+ +---------+--------+ | MEDICARE | MEDICA | [id number] | 08/24/19 | [phone] | | Medica | | | RE | | 07-Pre | 5 | | re | | | PART A | | sent | | | | | | AND B | | | | | | + +--------+ +--------+ +---------+--------+ | [employer] | TRANSA | [id number] | | | | Indemn | | INSURANCE | MERICA | | 014-Pr | | | ity | | | LIFE | | esent | | | | | | [place] | | | | | | + +--------+ +--------+ +---------+--------+ + +--------+ +--------+ + + | Guarantor Name | Accoun | Relation to | Date | Phone | Billing Address | | | t Type | Patient | of | | | | | | | | | | + +--------+ +--------+ + + | Lele Mustafa | Person | Self | [birth year] | [address] | | [place] | al/Fam | | 1959 | [phone] | [place] | | | rajni | | | 0 (Home) | [address] | + +--------+ +--------+ + + Advance Directives + + + + + | Type | Date Recorded | Patient | Explanation | | | | Creative Services Coordinator | | + + + + + | Power of | | | | | Clerk Stenographer | | | | + + + + + | Advance | 08/26/2016 8:50 | | | | Directive | AM | | | + + + + + + + + + + | Code Status | Date | Date | Comments | | | Activated | Inactivated | | + + + + + | Full Code | 01/01/2018 | 01/04/2018 | | | | 4:56 AM | 12:58 PM | | + + + + + + + + +---+ | | | | | + + + +---+ | Full Code | 12/15/2017 | 12/19/2017 | | | | 4:27 PM | 5:25 PM | | + + + +---+ + + + +---+ | | | | | + + + +---+ | Full Code | 11/11/2016 | 11/15/2016 | | | | 6:09 PM | 3:15 PM | | + + + +---+
--- OUTSIDE RECORDS SUMMARY | ~2020-02-04 | XMS | Encounter Summary ---
Demographics + + + | Address | [address] | | | [place] [address] | + + + | Home Phone | | + + + | Preferred Language | Unknown | + + + | Marital Status | | + + + | Zoroastrianism Affiliation | 1013 | + + + | Race | White | + + + | Ethnic Group | Not or | + + + Author + + + | Author | [facility] | | | and [place] | + + + | Organization | [facility] | | | [...] [place] | | | | | [address] | | + + + + + | Leslie Lentz | ECON | Unknown | | + + + + + Care Team Providers + +------+ + | Care Licensed Weigher Name | Role | Phone | + +------+ + PCP | Unavailable | + +------+ + Encounter Details +--------+ + + + + | Date | Type | Department | Care Team | Description | +--------+ + + + + | 02/08/ | Hospital | [facility] | Eloy Lundlas | Lumbar | | 2017 | Encounter | MED CTR XRAY [address] | [address] | radiculopathy; | | | | [place] | [address] [place], [place] | Lumbar facet joint | | | | [place] [address] | [phone] | pain; S/P lumbar | | | | [phone] | | fusion | +--------+ + + + + Social [...] LUMBAR SPINE 2 [place] | Routin | 02/08/2017 | Lumbar | Results for this | | 3 VW | e | 1:22 PM | radiculopathy | procedure are in the | | | | PDT | Lumbar facet joint | results section. | | | | | pain S/P lumbar | | | | | | fusion | | + +--------+ + + + [...] Diagnosis | + + | Lumbar radiculopathy Thoracic or lumbosacral neuritis or radiculitis, unspecified | + + | Lumbar facet joint pain Other symptoms referable to back | + + | S/P lumbar fusion Arthrodesis status | + + documented in this encounter"
--- OUTSIDE RECORDS SUMMARY | ~2020-02-04 | XMS | Encounter Summary ---
Demographics + + + | Address | [address] | | | [place] [address] | + + + | Home Phone | | + + + | Preferred Language | Unknown | + + + | Marital Status | | + + + | Voodoo Affiliation | 1013 | + + + | Race | White | + + + | Ethnic Group | Not or | + + + Author + + + | Author | [facility] | | | and [place] | + + + | Organization | [facility] | | | [...] [address] | | | | | [address] | | + + + + + | Leslie Lentz | ECON | Unknown | | + + + + + Care Team Providers + +------+ + | Care Acrobatic Rigger Name | Role | Phone | + +------+ + PCP | Unavailable | + +------+ + Encounter Details +--------+ + + + + | Date | Type | Department | Care Team | Description | +--------+ + + + + | 08/26/ | Orders Only | [facility] | Kai Gillespie MD | Spondylolisthesis of | | 2017 | | NEUROSURGERY [address] | [address] | lumbar region | | | | [address] | [place] [address] | (Primary Dx); Neural | | | | [place], [place] | [phone] | foraminal stenosis | | | | [address] | | of lumbar spine; | | | | [phone] | | Lumbar | | | | | | radiculopathy; | | | | | | Spinal stenosis, | | | | | | lumbar region, | | | | | | without neurogenic | | | | | | claudication; | | | | | | Degeneration of | | | | | | lumbar | | | | | | intervertebral disc | +--------+ + + + + Social [...] Primary Acquired spondylolisthesis | + + | Neural foraminal stenosis of lumbar spine Spinal stenosis, lumbar region, without | | neurogenic claudication | + + | Lumbar radiculopathy Thoracic or lumbosacral neuritis or radiculitis, unspecified | + + | Spinal stenosis, lumbar region, without neurogenic claudication | + + | Degeneration of lumbar intervertebral disc Degeneration of lumbar or lumbosacral | | intervertebral disc | + + documented in this encounter"
--- OUTSIDE RECORDS SUMMARY | ~2020-02-04 | XMS | Encounter Summary ---
Demographics + + + | Address | [address] | | | [place] [address] | + + + | Home Phone [...] + + + | Author | [facility] | + + + | Organization | [facility] | + + + | Address | Unknown | + + + | Phone | Unavailable | + + + Support + + +---------+ + | Name | Relationship | Address | Phone | + + +---------+ + | Leslie Lentz | ECON | Unknown | | + + +---------+ + Care Team Providers + +------+ + | Care Relief Captain Name | Role | Phone | + +------+ + | Aggie Dunn NP | PCP | | + +------+ + Encounter Details +--------+ + + + + | Date | Type | Department | Care Team | Description | +--------+ + + + + | 12/31/ | Orders Only | [facility] | Tammy Bagley, | Retinal detachment, | | 2020 | | [facility] | [address] | left | | | | [place] [address] [address] | Joni [address]on | | | | | Farrah Connelly | [place], [place] | | | | | [facility] | [address] | | | | | floor [place], [place] | [phone] | | | | | [address] | [...] + + documented in this encounter Results COVID-19, RAPID PCR (01/01/2020 7:19 PM PDT) [...] Fact sheet for patients: | | | https://www.Pheed.gov/media/705124/download | | + + + + + + + + | Performing | Address | City/State/Zipcode | Phone Number | | Organization | | | | + + + + + | [facility] [place] | [address] | [place] [address] | | | [place] | [address] | | | + + + + + documented in this encounter Visit Diagnoses + + | Diagnosis | + + | Retinal detachment, left Unspecified retinal detachment | + + documented in this encounter"
--- OUTSIDE RECORDS SUMMARY | ~2020-02-04 | XMS | Encounter Summary ---
Demographics + + + | Address | [address] | | | [place] [address] | + + + | Home Phone [...] [place] | | | | | [address] | | + + + + + | Leslie Lentz | ECON | Unknown | | + + + + + Care Team Providers + +------+ + | Care Health And Safety Trainer Name | Role | Phone | + +------+ + PCP | Unavailable | + +------+ + Encounter Details +--------+ + + + + | Date | Type | Department | Care Team | Description | +--------+ + + + + | 06/13/ | Hospital | [facility] | Conversion | Diagnosis unknown | | 2018 | Encounter | CONVERSION [address] | Transaction, | | | | | [address] | Provider Unknown | | | | | [place] | [phone] | | | | | [address] | | | | | | [phone] | | | +--------+ + + + [...] | + +--------+ + + + | CT THORACIC SPINE WO | Routin | 05/01/2017 | | Results for this | | CONTRAST | e | 2:01 PM | | procedure are in the | | | | PST | | results section. | + +--------+ + + + documented in this encounter Results CT Thoracic Spine wo Contrast (05/01/2017 2:01 PM PST) + + | Specimen | + + | | + + + + + | Narrative | Performed At | + + + | This is a non-reportable procedure without a radiologist report and | | | is used for image storage only | | + + + + + | Procedure Note | + + | Juni Mcintosh - 12/06/2018 4:56 AM PDT This is a non-reportable procedure | | without a radiologist report and isused for image storage only | + + documented in this encounter Visit Diagnoses + + | Diagnosis | + + | Diagnosis unknown Other unknown and unspecified cause of morbidity or mortality | + + documented in this encounter"
--- OUTSIDE RECORDS SUMMARY | ~2020-02-04 | XMS | Encounter Summary ---
Demographics + + + | Address | [address] | | | [place] [address] | + + + | Home Phone | | + + + | Preferred Language | Unknown | + + + | Marital Status | | + + + | Buddhism Affiliation | 1013 | + + + [...] [address] | | | | | [address] | | + + + + + | Leslie Lentz | ECON | Unknown | | + + + + + Care Team Providers + +------+ + | Care Pediatrics Physician Name | Role | Phone | + +------+ + PCP | Unavailable | + +------+ + Reason for Visit + + + | Reason | Comments | + + + | Follow-up | Review MRI and CT | + + + Encounter Details +--------+---------+ + + + | Date | Type | Department | Care Team | Description | +--------+---------+ + + + | 09/13/ | Office | [facility] | Kai Gillespie MD | S/P lumbar fusion | | 2018 | Visit | NEUROSURGERY [address] | [address] | (Primary Dx); Right | | | | [address] | [place] [address] | foot drop; Lumbar | | | | [place] | [phone] | radiculopathy; | | | | [address] | | Foraminal stenosis | | | | [phone] | | of lumbar region; | | | | | | Pseudoarthrosis of | | | | | | lumbar spine | +--------+---------+ + + + Social History [...] + + + | Blood Pressure | 132/88 | 09/13/2017 2:41 PM | | | | | PDT | | + + + + + | Pulse | 77 | 09/13/2017 2:41 PM | | | | | PDT | | + + + + + | Temperature | - | - | | + + + + + | Respiratory Rate | 14 | 09/13/2017 2:41 PM | | | | | PDT | | + + + + + | Oxygen Saturation | - | - | | + + + + + | Inhaled Oxygen | - | - | | | Concentration | | | | + + + + + | Weight | 127.2 kg (280 lb 6.8 | 09/13/2017 2:41 PM | | | | oz) | PDT | | + + + + + | Height | 193 cm (6' 4") | 09/13/2017 2:41 PM | | | | | PDT | | + + + + + | Body Mass Index | 34.13 | 09/13/2017 2:41 PM | | | | | PDT [...] documented as of this encounter Progress Notes Kai Gillespie MD - 09/13/2017 2:45 PM PDTFormatting of this note might be different from t johny original. Kai Gillespie MD [address] [place] [address], [address] [place] [address] FAX: NEUROSURGERY FOLLOW-UP CHIEF COMPLAINT: Chief Complaint Patient presents with Follow-up Review MRI and CT HISTORY OF PRESENT ILLNESS: The patient is a 57 y.o. male that had a lumbar fusion for cali nosis and radiculopathy on 11/11/2017. He returns and overall is doing okay. His back pain is reduced from preoperatively but he continues to have some right drop foot and weakness t hat has not improved. He has to use an AFO due to weakness. Lele Mustafa is being seen today to review lumbar CT and MRI. CURRENT MEDICATIONS: Current Outpatient Prescriptions Medication Sig [...] + night sweats, no anemia, no fatigue, + recent profound weight hughes ges. EYES: No eye problems, + use of [...] of present illness. In addition, the patient awakes with numbness/pain, change in walk, pain in back. PSYCHIATRIC: + depression, no sleep disorders, + anxiety, no bipolar disorder, no psychoti c episodes. CARDIOVASCULAR: No heart attacks, no heart [...] incontinence. ENDOCRINE: + diabetes, no thyroid disease, + osteopenia or osteoporosis, no breast drainag e. SKIN: No breast lumps, no skin changes, no rashes, no itches. HEMATOLOGIC/LYMPHATIC: No enlarged lymph nodes, no easy or unusual bleeding, no personal h istory of cancer. RHEUMATOLOGIC: No joint arthritis, no rheumatoid arthritis. INTERIM PHYSICAL EXAMINATION: Blood pressure 132/88, pulse 77, resp. rate 14, height 1.93 m (6' 4"), weight 127.2 kg (280 lb 6.8 oz). Body mass index is 34.13 kg/m. GENERAL: Lele Mustafa is in no [...] last visit. SENSORY EXAM: The sensory examination is remarkable RADIOGRAPHIC REVIEW: The patient s CT shows failed fusion at L5-S1 with loosened S1 hardware. ASSESSMENT: Encounter Diagnoses Name Primary? S/P lumbar fusion Yes Right foot drop Lumbar radiculopathy Foraminal stenosis of lumbar region Pseudoarthrosis of lumbar spine Past Medical History: Diagnosis Date Anxiety Depression Diabetes mellitus (HCC) Diabetes type 2, controlled (HCC) Graves disease Hearing deficit HTN (hypertension) Lumbar facet joint pain Lumbar radiculopathy MRSA (methicillin resistant Staphylococcus aureus) Peroneal neuropathy RLS (restless legs syndrome) Sleep apnea uses CPAP Vision disorder deficit Wears dentures upper PLAN: Overall, the patient is doing okay but his increasing weakness was concerning. The cause i s now known. I am now advising revision with an ALIF and posterior revision of the hardware with iliac extension. We discussed the risks, alternatives, and benefits to surgical intervention with Mr. Barragan jeannette in clinic. These risks included but were not limited to , stroke, heart attack, num bness, weakness, paralysis, failure of fusion, failure of hardware, subsidence, adjacent seg ment degeneration, cerebrospinal fluid leak, bleeding, infection, injury to surrounding tiss ues and organs, injury from positioning, injury to the nerves, difficulty with breathing, di fficulty with swallowing, difficulty with voice change, and [...] fusion, I am also prescribing a bone [facility] stimulator postoperatively. This is to improve the probability and rate of fusion. He would like to seek evaluation for the operation. 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
--- OUTSIDE RECORDS SUMMARY | ~2020-02-04 | XMS | Encounter Summary ---
Demographics + + + | Address | [address] | | | [place] [address] | + + + | Home Phone | | + + + | Preferred Language | Unknown | + + + | Marital Status | | + + + | Zoroastrianism Affiliation | CHR | + + + | Race | White | + + + | Ethnic Group | Not or | + + + Author + + + | Author | [facility] | + + + | Organization | [facility] | + + + | Address | Unknown | + + + | Phone | Unavailable | + + + Support + + +---------+ + | Name | Relationship | Address | Phone | + + +---------+ + | Leslie Lentz | ECON | Unknown | | + + +---------+ + Care Team Providers + +------+ + | Care Golf [employer] Superintendent Name | Role | Phone | + +------+ + | Aggie Dunn NP | PCP | | + +------+ + Reason for Visit +---------+ + | Reason | Comments | +---------+ + | Post Op | | +---------+ + Encounter Details +--------+---------+ + + + | Date | Type | Department | Care Team | Description | +--------+---------+ + + + | 01/02/ | Office | [facility] | Tammy Bagley, | Retinal detachment, | | 2019 | Visit | [facility] at | [address] | left s/p PPV/SB/20% | | | | Bartolome [address] | Joni Dubon | SF6 12/07/2019 | | | | [address] | [place], [place] | | | | | [facility] [place] | [address] | | | | | [place], [place] | [phone] | | | | | [address] | | | +--------+---------+ + + + [...] of this encounter Patient Instructions Patient Instructions Zaria Walker MD - 01/03/2020 8:00 AM PDTFormatting of this not e might be different from the original. What to expect after surgery on your eye Start: Post Operative Eye Drops Ofloxacin (Antibiotic) 1 drop 4 times a day (Breakfast, Lunch, Dinner, Bedtime) Continue until instructed to stop or change dose Prednisolone (Anti-inflammatory) Shake 20 times before use 1 drop 4 times a day (Breakfast, Lunch, Dinner, Bedtime) Continue until instructed to stop or change dose Atropine (Dilating) 1 drop 2 times a day (Breakfast, Dinner) Continue until instructed to stop or change dose Wait 5 minutes between putting in different drops Be careful not to touch eye, lashes, or lids with the tip of the bottle 1. Sleep on either side. Do not lay flat on back. 2. Avoid heavy lifting (over 5-10 lbs), bending over (placing head below heart) or strainin g for 2 weeks. Avoid water in the eye. Shower backwards with eyes closed or with the eye shield over th e operated eye. Place the metal shield over your eye with tape whenever you will be sleeping for 1 week. Call [phone] if you have: Worsening eye pain Worsening eye redness New flashes New floaters Physical appearance of the operated eye: The white part of your eye may be red for 2-3 weeks, but will return to normal. Bruising around the eye may last 2-3 weeks. It may look a little yellow before it clears . The eye lid may be swollen and droopy after surgery. Droopiness of the lid may last a fe w months, but most often returns to normal. White residue inner corner from prednisolone drops are often seen. Pupils may stay dilated for 2 weeks after you stop the atropine (red top) eye drops. Pain/Discomfort: We do not expect you to have severe pain that is not controlled by over the counter medi cation call us if this is the case. Bruising around the eye may last 2-3 weeks. It may look a little yellow before it clears . The eye lid may be swollen and droopy after surgery. Droopiness of the lid may last a fe w months, but most often returns to normal. Your eye may be sensitive to light while your pupil is dilated. Itching and sensation that there is something in the eye may last for about 2-3 weeks. T his is usually not relieved with pain medications, so let us know if this is difficult to to lerate. Realistic vision expectations: Retinal surgery can change your glasses prescription. We usually recommend that you wait 2-3 months after surgery to get new glasses. Silicone oil: your vision will be out of focus as long as the bubble is in there. Rarely , we may recommend glasses to correct this, but we usually recommend that you wait until the oil is removed. documented in this encounter Progress Notes Zaria Walker MD - 01/03/2020 8:00 AM PDT [facility] Progress Note 01/03/2020 Assessment & Plan: 59 y.o. male Retinal detachment, left s/p PPV/SB/20% SF6 12/07/2019 Post-operative day #1 s/p PPV/EL/Afx/SO OS 01/02/2020 (Flalejo/Aaron) - Patient doing well. Retina flat. IOP acceptable. - Start Pred forte 1 gtt qid, Ofloxacin 1 gtt qid, and Atropine 1 gtt bid in the operated e ye. - Discussed with patient endophthalmitis/RD precautions and instructed patient to return to clinic sooner with signs/symptoms. - Wear eye shield x 1 week - No heavy lifting or strenuous activity x 2 weeks - Reviewed positioning instructions: no lying flat on back Call for decreased vision, increased distortion, increased pain, new floaters or flashing l ights Follow up: Return in about 1 week (around 01/10/2020) for Dr. Ferguson. Chief Complaint: Post Op HPI (Edited by physician):POD#1 s/p PPV/EL/Afx/SO OS 01/02/2020 (Kevyn/Aaron) Patient doing well. No pain OS. Did not bring post op drops. Atropine OS @ 8:04 Ofloxacin OS @ 8:05 Pred OS @ 8:06 Post op sheets given. Current Outpatient Medications (Ophthalmic Medications) Medication Sig atropine Instill 1 drop into the left eye two times daily. dorzolamide HCl-timolol maleate prednisoLONE acetate Instill 1 drop into the left eye four times daily. Current Outpatient Medications (Other) Medication Sig cefPODOxime cyclobenzaprine take 1/2-1 tablet by mouth three times a day (DO NOT TAKE WHILE WORKING OR DRIVING) DULoxetine gabapentin HYDROcodone-acetaminophen take 1-2 tablets by mouth every 8 hours if needed for pain HYDROcodone-acetaminophen Take 1-2 tablets by mouth every four hours as needed (moderat e or severe pain). ibuprofen irbesartan-hydrochlorothiazide Levemir U-100 Insulin metFORMIN traMADoL Reviewed: Allergies | Meds | Examination: See Ophthalmology Module Attestations: The attending physician is responsible for and agrees with the entire content of the note a nd has personally performed the HPI and the physical examination. Tammy Bagley MD documented in this encounter Miscellaneous Notes Assessment & Plan Note - Zaria Walker MD - 01/03/2020 8:14 AM PDTAssociated Problem (s): Retinal detachment, left s/p PPV/SB/20% SF6 12/07/2019Post-operative day #1 s/p PPV/EL/A fx/SO OS 01/02/2020 (Kevyn/Aaron) - Patient doing well. Retina flat. IOP acceptable. - Start Pred forte 1 gtt qid, Ofloxacin 1 gtt qid, and Atropine 1 gtt bid in the operated e ye. - Discussed with patient endophthalmitis/RD precautions and instructed patient to return to clinic sooner with signs/symptoms. - Wear eye shield x 1 week - No heavy lifting or strenuous activity x 2 weeks - Reviewed positioning instructions: no lying flat on back documented in this encounter Plan of Treatment Not on filedocumented as of this encounter Visit Diagnoses + + | Diagnosis | + + | Retinal detachment, left s/p PPV/SB/20% SF6 12/07/2019 Unspecified retinal detachment | + + documented in this encounter"
--- OUTSIDE RECORDS SUMMARY | ~2020-02-04 | XMS | Encounter Summary ---
Demographics + + + | Address | [address] | | | [place] [address] | + + + | Home Phone | | + + + | Preferred Language | Unknown | + + + | Marital Status | | + + + | Pentecostal Affiliation | 1013 | + + + | Race | White | + + + | Ethnic Group | Not or | + + + Author + + + | Author | [facility] | | | and [place] | + + + | Organization | [facility] | | | [...] [place] | | | | | [address] | | + + + + + | Leslie Lentz | ECON | Unknown | | + + + + + Care Team Providers + +------+ + | [employer] It Investment/Portfolio Manager Name | Role | Phone | + +------+ + | Aggie Dunn NP | PCP | | + +------+ + Encounter Details +--------+ + + + + | Date | Type | Department | Care Team | Description | +--------+ + + + + | 10/16/ | Hospital | [facility] | Dashawn Gomez | Family history of | | 2019 | Encounter | [facility] | MD [facility] [address] | colon cancer in | | | | INTRA OP [address] | [place] [address] | mother; Atypical | | | | [address] [place], [place] | [phone] | chest pain; | | | | [address] | | Epigastric pain | | | | [phone] | | | +--------+ + + + [...] documented as of this encounter Discharge Summaries Dashawn Gomez MD - 10/16/2018 7:48 AM PDT Discharge Summaries by Dashawn Gomez MD at 10/16/18747 Author: Dashawn Gomez MD Service: Gastroenterology Author Type: Physician Filed: 10/16/18747 Date of Service: 10/16/18747 Status: Signed Stock Chaser: Dashawn Gomez MD (Physician) [facility] Service: Gastroenterology Brief Post-op Discharge Note DISCHARGE DIAGNOSES: Principal Problem: Family history of colon cancer in mother Active Problems: Epigastric pain Resolved Problems: * No resolved hospital problems. * Procedures: Procedure(s): COLONOSCOPY W/ EGD This patient was transferred to the recovery area post-operatively and has experienced no d ifficulties at the time of my assessment. The patient is anticipated to continue to meet di scharge criteria per protocol as assessed by nursing and may be discharged at that time with designated caregiver. Disposition: Home Condition: Good Follow up: With GI clinic Medication List CONTINUE taking these medications acetaminophen 500 MG tablet Refills: 0 Commonly known as: TYLENOL aluminum-magnesium hydroxide-simethicone 200-200-20 MG/5ML Susp QTY: 1680 mL Refills: 0 Commonly known as: MAALOX Take 30 mLs by mouth every 6 (six) hours as needed. aspirin EC 81 MG EC tablet Refills: 0 atorvastatin 40 MG tablet Refills: 0 Commonly known as: LIPITOR calcium carbonate 500 MG chewable tablet Refills: 0 Commonly known as: TUMS Take 2 tablets by mouth every 6 (six) hours as needed. cyclobenzaprine 10 MG tablet Refills: 0 Commonly known as: FLEXERIL DULoxetine [address] capsule Refills: 0 Commonly known as: CYMBALTA gabapentin 300 MG capsule Refills: 0 Commonly known as: NEURONTIN glucagon 1 MG injection Refills: 0 ibuprofen 600 MG tablet Refills: 0 Commonly known as: MOTRIN insulin lispro (human) 100 UNIT/ML injection Refills: 0 Commonly known as: HUMALOG LEVEMIR 100 UNIT/ML injection Refills: 0 Generic drug: insulin detemir losartan-hydrochlorothiazide 50-12.5 MG per tablet Refills: 0 Commonly known as: HYZAAR MAGNESIUM PO Refills: 0 metFORMIN 1000 MG tablet Refills: 0 Commonly known as: GLUCOPHAGE nitroGLYCERIN 0.4 MG SL tablet QTY: 90 tablet Refills: 12 Commonly known as: NITROSTAT Place 1 tablet under the tongue every 5 (five) minutes as needed for Chest pain. Potassium 99 MG Tabs Refills: 0 sucralfate 1 g tablet QTY: 56 tablet Refills: 5 Commonly known as: CARAFATE Take 1 tablet by mouth 4 (four) times daily for 14 days. Vitamin D 2000 units tablet Refills: 0 You might also be taking other medications not listed above. If you have questions about an y of your other medications, talk to the person who prescribed them or your Primary Care Pro vider. Dashawn Gomez MD 10/16/2018 7:48 AM documented in th is encounter Medications at Time of Discharge + [...] + + + +---------+ + + | Alum & Mag | Take 30 mLs by mouth | | 0 | / | | | Hydroxide-Simeth | every 6 (six) hours | | | 19 | | | (ANTACID & ANTIGAS) | as needed. | | | | | | 200-200-20 MG/5ML | | | | | | | SUSP | | | | | | + + + +---------+ + + | Ascorbic Acid | Take 1,000 mg by | | 0 | | | | (VITAMIN C) 1000 MG | mouth Daily. | | | | | | tablet [...] + + + +---------+ + + | cyanocobalamin | Take 1,000 mcg by | | 0 | | | | (VITAMIN B-12) 1000 | mouth. | | | | | | MCG tablet | | | [...] + + + +---------+ + + | dicyclomine | Take 1 capsule (10 | | 0 | 07/24/19 | | | (BENTYL) 10 mg | mg total) by mouth 4 | | | 19 | | | capsule | times daily | | | | | + + + +---------+ + + | doxycycline | Take 100 mg by | | 0 | | | | (VIBRAMYCIN) 100 mg | mouth. | | | | | | capsule [...] | | | | | | | eavzy941-597= 3 | | | | | | | uxydr964-384= 6 | | | | | | | ifeqc657-404= 9 | | | | | | | etxim207-211= 12 | | | | | | | baijw721-312= 15 | | | | | | | units | | | | | + + + +---------+ + + | insulin lispro | Inject 3-18 Units | | 0 | | | | (CORTNEY KATYAIKPEN) | under the skin 3 | | | | | | 100 units/mL | times daily (before | | | | | | injection (pen) | meals). Per sliding | | | | | | | scale:150-200= 3 | | | | | | | evdlq497-957= 6 | | | | | | | -228= 9 | | | | | | | -724= 12 | | | | | | | ldiuh052-530= 15 | | | | | | | hancv719-735= 18 | | | | | | | units | | | | | + + + +---------+ + + | insulin NPH | Inject 80 Units into | | 0 | 03/18/20 | | | (NOVOLIN N) 100 | the skin 2 times | | | 19 | | | units/mL injection | daily | | | | | + + + +---------+ + + | | Take 1 tablet by | | 0 | 06/27/19 | | | irbesartan-hydrochlo | mouth. | | | 19 | | | rothiazide (AVALIDE) | | | | | | | 150-12.5 MG per | | | | | | | tablet | | | | | | + + + +---------+ + + | | | | 0 | 02/25/20 | | | irbesartan-hydrochlo | | | | 18 | | | rothiazide (AVALIDE) | | | [...] + + + +---------+ + + | sucralfate | Take 1 tablet by | | 0 | 07/24/19 | | | (CARAFATE) 1 g | mouth 4 (four) times | | | 19 | | | tablet | daily for 14 days. | | | | | + + [...] + + + +---------+ + + | calcium carbonate | Take 2 tablets by | | 0 | 05/23/19 | | | (TUMS) 500 mg | mouth every 6 (six) | | | 19 | 0 | | chewable tablet | hours as needed. | | | | | + + + +---------+ + + | fluticasone | Administer 1 spray | | 0 | 04/22/20 | | | (FLONASE) 50 | into each nostril | | | 18 | 0 | | mcg/nasal spray | daily. | | | | | + + + +---------+ + + | nitroglycerin | Place 1 tablet under | | 0 | 05/23/19 | | | (NITROSTAT) 0.4 mg | the tongue every 5 | | | 19 | 0 | | SL tablet | (five) minutes as | | | | | | | needed for Chest | | | | | | | pain. | | | | | + + + +---------+ + + documented as of this encounter H&P Notes Dashawn Gomez MD - 10/16/2018 7:05 AM PDT Interval H&P Note by Dashawn Gomez MD at 10/16/18 0705 Author: Dashawn Gomez MD Service: Gastroenterology Author Type: Physician Filed: 10/16/18704 Date of Service: 10/16/18704 Status: Signed Stock Chaser: Dashawn Gomez MD (Physician) [facility] Service: Gastroenterology Pre-Operative History & Physical Interval Update There have been no significant clinical changes since the completion of the above H&P. Tod ays physical assessment showed HP update PE: Normal appearance, alert and oriented X3 and r espiratory effort normal Dashawn Gomez MD 10/16/2018 *CORE MEASURES REMINDER: If the patient has a known or suspected infection prior to surger y, please add diagnosis to the problem list (consider: Infection 136.9). Source Note Author: Dashawn Gomez MD Service: (none) Author Type: Physician Filed: 10/16/18704 Date of Service: 10/11/181119 Status: Signed Stock Chaser: Dashawn Gomez MD (Physician) Documentation note to produce procedure H & P which will be updated on day of procedure. [facility] Service: Gastroenterology Pre-Operative History & Physical ? INDICATION: ICD-10-CM 1. Epigastric pain R10.13 2. Fatty liver K76.0 3. History of gastric ulcer Z87.19 4. Constipation, unspecified constipation type K59.00 5. Diverticulosis K57.90 6. Family history of colon cancer in mother Z80.0 PROCEDURE: Colonoscopy w/EGD ? History Obtained From: Patient HISTORY OF PRESENT ILLNESS The patient is a 58 y.o. male 1960 who presents with Epigastric pain, Fatty liver, H istory of gastric ulcer, Constipation, unspecified constipation type, Diverticulosis, Family history of colon cancer in mother. REVIEW OF SYSTEMS Constitutional: Negative for activity change, appetite change, diaphoresis, fatigue, fever and unexpected weight change. HENT: Negative for mouth sores, nosebleeds, sore throat, trouble swallowing and voice duggan e. Eyes: Negative for pain, redness and visual disturbance. Respiratory: Negative for cough, choking, chest tightness, shortness of breath and wheezing . Cardiovascular: Negative for chest pain, palpitations and leg swelling. Gastrointestinal: Positive for abdominal pain (c/o epig pain every day, he can not pin poin t the cause. x6 months) and diarrhea (intermittently). Negative for abdominal distention, a nal bleeding, blood in stool, constipation, nausea, rectal pain and vomiting. Endocrine: Negative for cold intolerance, heat intolerance and polydipsia. Genitourinary: Negative for difficulty urinating, dysuria, frequency, testicular pain and u rgency. Musculoskeletal: Positive for back pain. Negative for arthralgias, gait problem, joint swel ling, myalgias, neck pain and neck stiffness. Skin: Negative for color change, rash and wound. Allergic/Immunologic: Negative for environmental allergies, food allergies and immunocompro mised state. Neurological: Negative for dizziness, tremors, seizures, syncope, weakness, light-headednes s, numbness and headaches. Hematological: Negative for adenopathy. Does not bruise/bleed easily. Psychiatric/Behavioral: Negative for agitation, confusion, hallucinations, sleep disturbanc e and suicidal ideas. The patient is not nervous/anxious. Past Medical History Diagnosis Date Chronic pain Diabetes mellitus, type 2 (HCC) Hypertension Sleep apnea Uses CPAP Past Surgical History Procedure Laterality Date CHOLECYSTECTOMY 1998 COLONOSCOPY Prior to 2013 [facility] FINGER SURGERY Left ring finger HIP SURGERY KNEE SURGERY Left SPINE SURGERY 5 back surgeries Allergies Allergen Reactions Codeine Other (See Comments) and Rash "makes my skin crawl" "makes my skin crawl" "makes my skin crawl" "makes my skin crawl" Morphine Other (See Comments) and Swelling Joint swelling Joint swelling Joint swelling Joint pain Oxycodone Nausea and Vomiting and Other (See Comments) Tremors Current Outpatient Prescriptions on File Prior to Visit Medication Sig Dispense Refill acetaminophen (TYLENOL) 500 MG tablet Take 500-1,000 mg by mouth. aluminum-magnesium hydroxide-simethicone (MAALOX) 200-200-20 MG/5ML SUSP Take 30 mLs by mouth every 6 (six) hours as needed. 1680 mL aspirin EC 81 MG EC tablet Take 81 mg by mouth. atorvastatin (LIPITOR) 40 MG tablet Take 40 mg by mouth daily. calcium carbonate (TUMS) 500 MG chewable tablet Take 2 tablets by mouth every 6 (six) h ours as needed. Cholecalciferol (VITAMIN D) 2000 units tablet Take 2,000 Units by mouth. cyclobenzaprine (FLEXERIL) 10 MG tablet Take 10 mg by mouth. DULoxetine (CYMBALTA) [address] capsule Take 60 mg by mouth. gabapentin (NEURONTIN) 300 MG capsule Take 300 mg by mouth. glucagon 1 MG injection Inject 1 mg into the muscle. ibuprofen (MOTRIN) 600 MG tablet insulin detemir (LEVEMIR) 100 UNIT/ML injection Inject 80 Units into the skin. insulin lispro, human, (HUMALOG) 100 UNIT/ML injection Inject 3-18 Units into the skin. irbesartan-hydrochlorothiazide (AVALIDE) 150-12.5 MG per tablet losartan-hydrochlorothiazide (HYZAAR) 50-12.5 MG per tablet Take 1 tablet by mouth. MAGNESIUM PO Take 250 mg by mouth daily. metFORMIN (GLUCOPHAGE) 1000 MG tablet Take 1,000 mg by mouth 2 (two) times daily. nitroGLYCERIN (NITROSTAT) 0.[address] 1 tablet under the tongue every 5 (fiv e) minutes as needed for Chest pain. 90 tablet 12 Potassium 99 MG TABS Take 99 mg by mouth. sucralfate (CARAFATE) 1 g tablet Take 1 tablet by mouth 4 (four) times daily for 14 day s. 56 tablet 5 No current facility-administered medications on file prior to visit. Family History Problem Relation Age of Onset Colon cancer Neg Hx Colon polyps Neg Hx Social History: History Smoking Status Former Smoker Quit date: 01/09/2003 Smokeless Tobacco Former User History Alcohol Use No History Drug Use No PHYSICAL EXAM Vital Signs: Reviewed as recorded in nursing records on day of procedure There were no vitals taken for this visit. Ht 6'3" Wt 270.9.6lb BMI 33.82kg/m2? Gen: NAD, appears well-developed CV: Regular Lungs: CTAB, Effort normal and breath sounds normal, No respiratory distress. Abd: Non-tender, +BS, no masses or organomegaly, no rebound, no guarding Extremities: Within normal limits, no amputations, normal range of motion Head: Normocephalic. Mouth/Throat: Oropharynx is clear and moist and mucous membranes are normal Eyes: Conjunctivae and EOM are normal Skin: Warm, moist, intact Neuro: Intact and symmetric grossly Psychiatric: Normal mood and affect, behavior is normal, judgment and thought content kath l. PROBLEM LIST Patient Active Problem List Diagnosis Lumbar radiculopathy Wound infection complicating hardware (HCC) Acute renal failure (HCC) Atypical chest pain Hypertensive urgency Poorly controlled diabetes mellitus (HCC) Hyperglycemia without ketosis Family history of colon cancer in mother ASSESSMENT & PLAN 1. Patient is a 58 y.o. male with above specified procedure planned for the indications not ed. 2. Medical conditions are currently stable and patient is felt appropriate for proceeding w ith procedure. Treatment Plan: EGD with COLONOSCOPY Plan for Sedation: Per Anesthesia Service Procedure Consent: The procedure, indications, limitations, alternatives available and pote ntial complications to include but not limited to bleeding, perforation, infection, and adve rse medication reaction was explained. Opportunity for questions provided and informed conse nt obtained. ASA Class: Per Anesthesia Service Mallampati Class: Per Anesthesia Service Discharge Plans: Discharge when appropriate discharge criteria met. Also per any procedure report recommendations. ? Date Physician Signature Updated today Dashawn Gomez MD [facility] Gastroenterology 10/11/2018 Primary Care Physician: Aggie Dunn *CORE MEASURES REMINDER: If the patient has a known or suspected infection prior to surgery , please add diagnosis to the problem list (consider: Infection 136.9). ? Angela Decker MD - 10/11/2018 11:20 AM PDTFormatting of this note might be different from the origina l. H&P (View-Only) by Dashawn Gomez MD at 10/11/18 1120 Author: Dashawn Gomez MD Service: (none) Author Type: Physician Filed: 10/16/18 0705 Date of Service: 10/11/181119 Status: Signed Stock Chaser: Dashawn Gomez MD (Physician) Documentation note to produce procedure H & P which will be updated on day of procedure. [facility] Service: Gastroenterology Pre-Operative History & Physical ? INDICATION: ICD-10-CM 1. Epigastric pain R10.13 2. Fatty liver K76.0 3. History of gastric ulcer Z87.19 4. Constipation, unspecified constipation type K59.00 5. Diverticulosis K57.90 6. Family history of colon cancer in mother Z80.0 PROCEDURE: Colonoscopy w/EGD ? History Obtained From: Patient HISTORY OF PRESENT ILLNESS The patient is a 58 y.o. male 1960 who presents with Epigastric pain, Fatty liver, H istory of gastric ulcer, Constipation, unspecified constipation type, Diverticulosis, Family history of colon cancer in mother. REVIEW OF SYSTEMS Constitutional: Negative for activity change, appetite change, diaphoresis, fatigue, fever and unexpected weight change. HENT: Negative for mouth sores, nosebleeds, sore throat, trouble swallowing and voice duggan e. Eyes: Negative for pain, redness and visual disturbance. Respiratory: Negative for cough, choking, chest tightness, shortness of breath and wheezing . Cardiovascular: Negative for chest pain, palpitations and leg swelling. Gastrointestinal: Positive for abdominal pain (c/o epig pain every day, he can not pin poin t the cause. x6 months) and diarrhea (intermittently). Negative for abdominal distention, a nal bleeding, blood in stool, constipation, nausea, rectal pain and vomiting. Endocrine: Negative for cold intolerance, heat intolerance and polydipsia. Genitourinary: Negative for difficulty urinating, dysuria, frequency, testicular pain and u rgency. Musculoskeletal: Positive for back pain. Negative for arthralgias, gait problem, joint swel ling, myalgias, neck pain and neck stiffness. Skin: Negative for color change, rash and wound. Allergic/Immunologic: Negative for environmental allergies, food allergies and immunocompro mised state. Neurological: Negative for dizziness, tremors, seizures, syncope, weakness, light-headednes s, numbness and headaches. Hematological: Negative for adenopathy. Does not bruise/bleed easily. Psychiatric/Behavioral: Negative for agitation, confusion, hallucinations, sleep disturbanc e and suicidal ideas. The patient is not nervous/anxious. Past Medical History Diagnosis Date Chronic pain Diabetes mellitus, type 2 (HCC) Hypertension Sleep apnea Uses CPAP Past Surgical History Procedure Laterality Date CHOLECYSTECTOMY 1998 COLONOSCOPY Prior to 2013 [facility] FINGER SURGERY Left ring finger HIP SURGERY KNEE SURGERY Left SPINE SURGERY 5 back surgeries Allergies Allergen Reactions Codeine Other (See Comments) and Rash "makes my skin crawl" "makes my skin crawl" "makes my skin crawl" "makes my skin crawl" Morphine Other (See Comments) and Swelling Joint swelling Joint swelling Joint swelling Joint pain Oxycodone Nausea and Vomiting and Other (See Comments) Tremors Current Outpatient Prescriptions on File Prior to Visit Medication Sig Dispense Refill acetaminophen (TYLENOL) 500 MG tablet Take 500-1,000 mg by mouth. aluminum-magnesium hydroxide-simethicone (MAALOX) 200-200-20 MG/5ML SUSP Take 30 mLs by mouth every 6 (six) hours as needed. 1680 mL aspirin EC 81 MG EC tablet Take 81 mg by mouth. atorvastatin (LIPITOR) 40 MG tablet Take 40 mg by mouth daily. calcium carbonate (TUMS) 500 MG chewable tablet Take 2 tablets by mouth every 6 (six) h ours as needed. Cholecalciferol (VITAMIN D) 2000 units tablet Take 2,000 Units by mouth. cyclobenzaprine (FLEXERIL) 10 MG tablet Take 10 mg by mouth. DULoxetine (CYMBALTA) [address] capsule Take 60 mg by mouth. gabapentin (NEURONTIN) 300 MG capsule Take 300 mg by mouth. glucagon 1 MG injection Inject 1 mg into the muscle. ibuprofen (MOTRIN) 600 MG tablet insulin detemir (LEVEMIR) 100 UNIT/ML injection Inject 80 Units into the skin. insulin lispro, human, (HUMALOG) 100 UNIT/ML injection Inject 3-18 Units into the skin. irbesartan-hydrochlorothiazide (AVALIDE) 150-12.5 MG per tablet losartan-hydrochlorothiazide (HYZAAR) 50-12.5 MG per tablet Take 1 tablet by mouth. MAGNESIUM PO Take 250 mg by mouth daily. metFORMIN (GLUCOPHAGE) 1000 MG tablet Take 1,000 mg by mouth 2 (two) times daily. nitroGLYCERIN (NITROSTAT) 0.[address] 1 tablet under the tongue every 5 (fiv e) minutes as needed for Chest pain. 90 tablet 12 Potassium 99 MG TABS Take 99 mg by mouth. sucralfate (CARAFATE) 1 g tablet Take 1 tablet by mouth 4 (four) times daily for 14 day s. 56 tablet 5 No current facility-administered medications on file prior to visit. Family History Problem Relation Age of Onset Colon cancer Neg Hx Colon polyps Neg Hx Social History: History Smoking Status Former Smoker Quit date: 01/09/2003 Smokeless Tobacco Former User History Alcohol Use No History Drug Use No PHYSICAL EXAM Vital Signs: Reviewed as recorded in nursing records on day of procedure There were no vitals taken for this visit. Ht 6'3" Wt 270.9.6lb BMI 33.82kg/m2? Gen: NAD, appears well-developed CV: Regular Lungs: CTAB, Effort normal and breath sounds normal, No respiratory distress. Abd: Non-tender, +BS, no masses or organomegaly, no rebound, no guarding Extremities: Within normal limits, no amputations, normal range of motion Head: Normocephalic. Mouth/Throat: Oropharynx is clear and moist and mucous membranes are normal Eyes: Conjunctivae and EOM are normal Skin: Warm, moist, intact Neuro: Intact and symmetric grossly Psychiatric: Normal mood and affect, behavior is normal, judgment and thought content kath l. PROBLEM LIST Patient Active Problem List Diagnosis Lumbar radiculopathy Wound infection complicating hardware (HCC) Acute renal failure (HCC) Atypical chest pain Hypertensive urgency Poorly controlled diabetes mellitus (HCC) Hyperglycemia without ketosis Family history of colon cancer in mother ASSESSMENT & PLAN 1. Patient is a 58 y.o. male with above specified procedure planned for the indications not ed. 2. Medical conditions are currently stable and patient is felt appropriate for proceeding w ith procedure. Treatment Plan: EGD with COLONOSCOPY Plan for Sedation: Per Anesthesia Service Procedure Consent: The procedure, indications, limitations, alternatives available and pote ntial complications to include but not limited to bleeding, perforation, infection, and adve rse medication reaction was explained. Opportunity for questions provided and informed conse nt obtained. ASA Class: Per Anesthesia Service Mallampati Class: Per Anesthesia Service Discharge Plans: Discharge when appropriate discharge criteria met. Also per any procedure report recommendations. ? Date Physician Signature Updated today Dashawn Gomez MD [facility] Gastroenterology 10/11/2018 Primary Care Physician: Aggie Dunn *CORE MEASURES REMINDER: If the patient has a known or suspected infection prior to surgery , please add diagnosis to the problem list (consider: Infection 136.9). ? documented in th is encounter Procedure Notes Dashawn Gomez MD - 10/16/2018 7:14 AM PDT Procedures signed by at 10/16/18746 Author: Dashawn Gomez MD Service: Gastroenterology Author Type: Physician Filed: 10/16/18746 Date of Service: 10/16/18713 Status: Signed Stock Chaser: Dashawn Gomez MD (Physician) Procedure Orders: 1. Colonoscopy procedures [[id number]] ordered by Dashawn Gomez MD at 10/16/1810 ngela Gomez MD - 10/16/2018 6:54 AM PDTFormatting of this note might be different from the origina l. Procedures signed by at 10/16/18713 Author: Dashawn Gomez MD Service: Gastroenterology Author Type: Physician Filed: 10/16/18713 Date of Service: 10/16/18653 Status: Signed Stock Chaser: Dashawn Gomez MD (Physician) Procedure Orders: 1. EGD [[id number]] ordered by Dashawn Gomez MD at 10/16/1810 documented in th is encounter Miscellaneous Notes Op Note - Dashawn Gomez MD - 10/16/2018 7:47 AM PDT Op Note by Dashawn Gomez MD at 10/16/18746 Author: Dashawn Gomez MD Service: Gastroenterology Author Type: Physician Filed: 10/16/18746 Date of Service: 10/16/18746 Status: Signed Stock Chaser: Dashawn Gomez MD (Physician) [facility] Service: Gastroenterology Operative Note Procedure note was generated using [employer] endoscopy software. The note can be reviewed under Chart Review using Media tab and Procedures tab. Dashawn Gomez MD 10/16/2018 iscellamaria luisaous - aPtricia, Dashawn Benton MD - 10/16/2018 7:14 AM PDT D-C Instructions Provation signed by at 10/16/18746 Author: Dashawn Gomez MD Service: Gastroenterology Author Type: Physician Filed: 10/16/18746 Date of Service: 10/16/18713 Status: Signed Stock Chaser: Dashawn Gomez MD (Physician) Patient Instructions After Colonoscopy Patient: Lele Mustafa Procedure Date: Tuesday, October 16, 2018 Attending MD: Dashawn Gomez; You had a Colonoscopy today. Your doctor made the following findings: - Six 3 to 7 mm polyps in the rectum and in the transverse colon, removed with a cold snare. Resected and retrieved. Your doctor recommends: You have a contact number available for emergencies. The signs and symptoms of potential delayed complications were discussed with you. You may return to normal activities tomorrow. Written discharge instructions were provided to you. Resume your previous diet. Continue your present medications. We are waiting for your pathology results. Your physician has recommended a repeat colonoscopy in three years for surveillance. Return to your GI clinic. CALL YOUR PHYSICIAN IF YOU EXPERIENCE: < Any unusual abdominal pain. < Any shoulder pain. < Temperature above 100 degrees Fahrenheit < Rectal bleeding in excess of 2 Tablespoons DIET: If you have undergone diagnostic colonoscopy, you may resume your regular diet immediately after the procedure unless otherwise instructed by your doctor. CAUTIONS: The medications used to make the examination more comfortable for you will be acting in your body for up to 24 hours. Therefore: < DO NOT drive a car or operate machinery or power tools. < DO NOT drink alcohol or take tranquillizers or sleeping pills. < DO NOT make major personal decisions. This includes signing legal documents and/or contracts. MEDICATIONS: Most medications can be safely resumed once you can eat. The exceptions would be tranquillizers and sleeping pills. Dashawn Gomez, 10/16/2018 7:47:00 AM This report has been signed electronically. [email or web address] - Patricia, Dashawn Benton MD - 10/16/2018 6:54 AM PDT D-C Instructions Provation signed by at 10/16/18713 Author: Dashawn Gomez MD Service: Gastroenterology Author Type: Physician Filed: 10/16/18713 Date of Service: 10/16/18653 Status: Signed Stock Chaser: Dashawn Gomez MD (Physician) Patient Instructions After Upper GI endoscopy Patient: Lele Mustafa Procedure Date: Tuesday, October 16, 2018 Attending MD: Dashawn Gomez; You had a Upper GI endoscopy today. Your doctor made the following findings: - Normal esophagus. - Normal stomach. Biopsied. - Normal examined duodenum. Biopsied. Your doctor recommends: We are waiting for your pathology results. CALL YOUR PHYSICIAN IF YOU EXPERIENCE: < Any unusual pain < Temperature above 100 degrees Fahrenheit < Shortness of breath DIET: You may resume your regular diet immediately after the procedure unless otherwise instructed by your doctor. CAUTIONS: The medications used to make the examination more comfortable for you will be acting in your body for up to 24 hours. Therefore: < DO NOT drive a car or operate machinery or power tools. < DO NOT drink alcohol or take tranquillizers or sleeping pills. < DO NOT make major personal decisions. This includes signing legal documents and/or contracts. MEDICATIONS: Most medications can be safely resumed once you can eat. The exceptions would be tranquillizers and sleeping pills. Dashawn Gomez, 10/16/2018 7:14:09 AM This report has been signed electronically. documented in th is encounter Plan of Treatment Not on filedocumented as of this encounter Procedures + +--------+ + + + | Procedure Name | Priori | Date/Time | Associated Diagnosis | Comments | | | ty | | | | + +--------+ + + + | COLONOSCOPY | Routin | 10/16/2018 | | Results for this | | | e | 7:14 AM | | procedure are in the | | | | PDT | | results section. | + +--------+ + + + | TISSUE REQUEST FOR | Routin | 10/16/2018 | | Results for this | | PATHOLOGY (NON-ORD) | e | 7:10 AM | | procedure are in the | | | | PDT | | results section. | + +--------+ + + + | ENDOSCOPY | Routin | 10/16/2018 | | Results for this | | | e | 6:54 AM | | procedure are in the | | | | PDT | | results section. | + +--------+ + + + | POC GLUCOSE | Routin | 10/16/2018 | | Results for this | | | e | 6:49 AM | | procedure are in the | | | | PDT | | results section. | + +--------+ + + + documented in this encounter Results COLONOSCOPY (10/16/2018 7:14 AM PDT) + + | Specimen | + + | | + + + + + | Narrative | Performed At | + + + | Historically converted procedure from [facility] Epic environment | EXTERNAL LAB | | [facility] | | | | | | Patient Name: Lele Mustafa Procedure Date: | | | 10/16/2018 7:14 AM | | | Date of : 1960 | | | Note Status: Finalized Attending MD: Dashawn Gomez , | | | Instrument Name: [id number] Colonoscope | | | | | | Procedure Type: Colonoscopy Indications: | | | Screening in patient at increased risk: Family history | | | of 1st-degree relative with colorectal | | | cancer Medicines: Monitored Anesthesia Care | | | Complications: No immediate complications. | | | | | | Procedure: Pre-Anesthesia Assessment: - | | | Prior to the procedure, a History and Physical was performed, and | | | patient medications and allergies were reviewed. The patient's | | | tolerance of previous anesthesia was also reviewed. The risks | | | and benefits of the procedure and the sedation options and | | | risks were discussed with the patient. All questions were | | | answered, and informed consent was obtained. Prior | | | Anticoagulants: The patient has taken aspirin. ASA Grade | | | Assessment: III - A patient with severe systemic disease. After | | | reviewing the risks and benefits, the patient was deemed in | | | satisfactory condition to undergo the procedure. | | | After I obtained informed consent, the scope was passed under direct | | | vision. Throughout the procedure, the patient's blood | | | pressure, pulse, and oxygen saturations were monitored | | | continuously. The Colonoscope was introduced through the anus | | | and advanced to the cecum, identified by appendiceal orifice | | | and ileocecal valve. The colonoscopy was performed without | | | difficulty. The patient tolerated the procedure well. The | | | quality of the bowel preparation was adequate. The ileocecal valve, | | | appendiceal orifice, and rectum were photographed. | | | | | | Estimated Blood Loss: | | | Estimated blood loss was minimal. Scope Withdrawal Time 0 hours 19 | | | minutes 30 seconds Findings: Six polyps were found in the | | | rectum and transverse colon. The polyps were 3 to 7 mm in | | | size. These polyps were removed with a cold snare. Resection | | | and retrieval were complete. | | | | | | Impression: - Six 3 to 7 mm polyps in the rectum | | | and in the transverse colon, removed with a cold snare. | | | Resected and retrieved. | | | | | | Recommendation: - Patient has a contact number available | | | for emergencies. The signs and symptoms of potential delayed | | | complications were discussed with the patient. Return to | | | normal activities tomorrow. Written discharge instructions | | | were provided to the patient. - Resume previous diet. | | | - Continue present medications. - Await pathology results. | | | - Repeat colonoscopy in 3 years for surveillance. - | | | Return to GI clinic. | | | | | | Dashawn Gomez, 10/16/2018 7:47:00 AM | | | This report has been signed electronically. Note Initiated On: | | | 10/16/2018 7:14 AM Number of Addenda: 0 [facility] | | | [facility] | | + + + + +---------+ + + | Performing | Address | City/State/Zipcode | Phone Number | | Organization | | | | + +---------+ + + | EXTERNAL LAB | | | | + +---------+ + + Tissue Request For Pathology (10/16/2018 7:10 AM PDT) + + | Specimen | + + | Soft tissue sample | | (specimen) | + + + + + | Narrative | Performed At | + + + | SPECIMEN(S): A DUODENAL BIOPSY SPECIMEN(S): B GASTRIC BIOPSY | EXTERNAL LAB | | SPECIMEN(S): C TRANSVERSE COLON POLYPS SPECIMEN(S): D RECTAL POLYPS | | | SPECIMEN SOURCE: A. DUODENAL BIOPSY B. GASTRIC BIOPSY C. TRANSVERSE | | | COLON POLYPS D. RECTAL POLYPS CLINICAL HISTORY: Epigastric pain. | | | Small polyps. MICROSCOPIC DESCRIPTION: Histologic sections of all | | | submitted blocks are examined by light microscopy. These findings, | | | together with the gross examination, support the pathologic diagnosis. | | | FINAL PATHOLOGIC DIAGNOSIS: A. Duodenum, biopsy: - Duodenal | | | mucosa with long slender villi and no increase of intraepithelial | | | lymphocytes, negative for features of celiac sprue. - Negative for | | | dysplasia or malignancy. B. Gastric, biopsy: - Gastric body | | | and antral-type mucosa with no increase of inflammation. - No | | | evidence of H pylori-like organisms on HE sections. - Negative for | | | intestinal metaplasia, dysplasia or malignancy. C. Transverse | | | colon polyps, polypectomy: - Fragmented portions of tubular | | | adenomas (4/4). D. Rectal polyps, polypectomy: - Favor | | | hyperplastic polyps. DD:emb:C2NR GROSS DESCRIPTION: Four | | | specimens are received in four containers, labeled "SM." A. The | | | specimen, labeled "SM, duodenum," is received in formalin and consists | | | of three hayden soft tissue fragments that measure 0.3-0.5 cm in | | | greatest dimension. The specimen is entirely submitted in cassette | | | (A1). B. The specimen, labeled "SM, gastric biopsy," is received | | | in formalin and consists of four hayden soft tissue fragments that | | | measure 0.2-0.8 cm in greatest dimension. The specimen is entirely | | | submitted in cassette (B1). C. The specimen, labeled "SM, | | | transverse colon polyps," is received in formalin and consists of four | | | hayden soft tissue fragments that measure 0.3-0.7 cm in greatest | | | dimension. The largest tissue fragment is inked and trisected. | | | The specimen is entirely submitted in cassette (C1). D. The | | | specimen, labeled "SM, rectum polyps," is received in formalin and | | | consists of five hayden soft tissue fragments that measure 0.2-1.2 cm in | | | greatest dimension. The largest tissue fragment is inked and | | | sectioned. The specimen is entirely submitted in cassette (D1). FB | | | (under the direct supervision of a pathologist) The Gross | | | Description was prepared using a voice recognition system. The | | | report was reviewed for accuracy; however, sound-alike word errors, | | | addition and/or deletions may occur. If there is any question about | | | this report, please contact Client Services. PERFORMING LABORATORY: | | | The technical component was performed by [facility], [address] | | | [place] [address] (Stove Installer: Alexandra Alvarez MD; | | | CLIA# [id number]). Professional interpretation was performed by | | | [facility], [facility], [address] [place] [address], | | | [place] [address] (Stove Installer: Bryan Guerrero M.D.; | | | CLIA#: [id number]). Diagnostician: Yanelis Michel MD | | | Pathologist Electronically Signed 10/17/2018 | | + + + + +---------+ + + | Performing | Address | City/State/Zipcode | Phone Number | | Organization | | | | + +---------+ + + | EXTERNAL LAB | | | | + +---------+ + + Endoscopy Procedures (10/16/2018 6:54 AM PDT) + + | Specimen | + + | | + + + + + | Narrative | Performed At | + + + | Historically converted procedure from [facility] Epic environment | EXTERNAL LAB | | [facility] | | | | | | Patient Name: Lele Mustafa Procedure Date: | | | 10/16/2018 6:54 AM | | | Date of : 1960 | | | Note Status: Finalized Attending MD: Dashawn Gomez , | | | Instrument Name: [id number] Gastroscope | | | | | | Procedure Type: Upper GI endoscopy | | | Indications: Epigastric abdominal pain, Diarrhea | | | Medicines: Monitored Anesthesia Care Complications: | | | No immediate complications. | | | | | | Procedure: Pre-Anesthesia Assessment: - | | | Prior to the procedure, a History and Physical was performed, and | | | patient medications and allergies were reviewed. The patient's | | | tolerance of previous anesthesia was also reviewed. The risks | | | and benefits of the procedure and the sedation options and | | | risks were discussed with the patient. All questions were | | | answered, and informed consent was obtained. Prior | | | Anticoagulants: The patient has taken aspirin. ASA Grade | | | Assessment: III - A patient with severe systemic disease. After | | | reviewing the risks and benefits, the patient was deemed in | | | satisfactory condition to undergo the procedure. | | | After obtaining informed consent, the endoscope was passed under | | | direct vision. Throughout the procedure, the patient's blood | | | pressure, pulse, and oxygen saturations were monitored | | | continuously. The Endoscope was introduced through the mouth, | | | and advanced to the second part of duodenum. The upper GI | | | endoscopy was accomplished without difficulty. The patient | | | tolerated the procedure well. | | | | | | Estimated Blood Loss: Estimated blood loss was minimal. | | | Findings: The esophagus was normal. The entire | | | examined stomach was normal. Biopsies were taken with a cold | | | forceps for histology. The examined duodenum was normal. | | | Biopsies were taken with a cold forceps for histology. | | | | | | Impression: - | | | Normal esophagus. - Normal stomach. Biopsied. - Normal | | | examined duodenum. Biopsied. | | | | | | Recommendation: - Await pathology results. | | | - Proceed with colonoscopy | | | | | | Dashawn Gomez, 10/16/2018 | | | 7:14:09 AM This report has been signed electronically. Note | | | Initiated On: 10/16/2018 6:54 AM Number of Addenda: 0 | | | [facility] | | + + + + +---------+ + + | Performing | Address | City/State/[facility] | Phone Number | | Organization | | | | + +---------+ + + | EXTERNAL LAB | | | | + +---------+ + + POC Glucose (10/16/2018 6:49 AM PDT) + + + + + + | Component | Value | Ref Range | Performed | Pathologist | | | | | At | Signature | + + + + + + | Glucose, | 109 (H)Comment: Testing | 65 - 99 mg/dL | EXTERNAL | | | Fingerstick | performed at [facility];[address] | | LAB | | | | [address];[place] | | | | | | [address] | | | | + + + + + + + + | Specimen | + + | | + + + +---------+ + + | Performing | Address | City/State/Zipcode | Phone Number | | Organization | | | | + +---------+ + + | EXTERNAL LAB | | | | + +---------+ + + documented in this encounter Visit Diagnoses + + | Diagnosis | + + | Family history of colon cancer in mother | + + | Atypical chest pain Other chest pain | + + | Epigastric pain Abdominal pain, epigastric | + + documented in this encounter
--- OUTSIDE RECORDS SUMMARY | ~2020-02-04 | XMS | Encounter Summary ---
Demographics + + + | Address | [address] | | | [place] [address] | + + + | Home Phone | | + + + | Preferred Language | Unknown | + + + | Marital Status | | + + + | Religion Affiliation | CHR | + + + | Race | White | + + + | Ethnic Group | Not or | + + + Author + + + | Author | [facility] | + + + | Organization | [facility] | + + + | Address | Unknown | + + + | Phone | Unavailable | + + + Support + + +---------+ + | Name | Relationship | Address | Phone | + + +---------+ + | Leslie Lentz | ECON | Unknown | | + + +---------+ + Care Team Providers + +------+ + | Care Account Manager Relief Name | Role | Phone | + +------+ + | Aggie Dunn ELECTRICAL SOFTWARE ENGINEER | PCP | | + +------+ + [...] Description | +--------+---------+ + + + | 01/01/ | Surgery | [facility] | Tammy Bagley, | [place] | | 2020 | | [address] | [address] | VITRECTOMY, ENDO | | | | [facility] | [address]i [address] | LASER, SILICONE OIL, | | | | [place] [address] | [place], [place] | MEMBRANE PEEL, LEFT | | | | | [address] | *23G* | | | | | [phone] | | | | | | | [...] eye, clean and dry. Your doctor sheng l remove it the day after surgery. Resume [...] into | 5 mL | 11 | 08/15/20 | | | ophthalmic (eye) | the [...] + + | cyclobenzaprine 10 | take /2-1 tablet by | | 1 | 12/23/19 [...] 60 mg | | | 0 | //20 | | | oral capsule,delayed | | | | 16 | | | release(DR/EC) | | | | | | + + + +---------+ + + | gabapentin 300 mg | | | 0 | 01/22/20 | | | oral capsule | | | | 16 | | + + + +---------+ + + | | take 1-2 tablets by | | 0 | 01/22/20 | | | HYDROcodone-acetamin | mouth every 8 hours | | | 16 | | | ophen 10-325 mg oral | if needed for pain | | | | | | tablet | | | | | | + + + +---------+ + + | | Take 1-2 tablets by | 20 | 0 | 08/14/20 | | | HYDROcodone-acetamin | mouth every [...] AM PDT History and Physical (Pre-op) Carlos Awa Ramsey [id number] 01/02/2020 HPI: 59yo man with rhegmatogenous retinal [...] 2 diabetes mellitus (HCC) SH: Reviewed in [facility] FH: No known family history of [...] MD, PhD Fellow, Vitreoretinal Disease and Surgery [facility] documented in this encounter Miscellaneous Notes Op Note - Zaria Walker MD - 01/02/2020 11:47 AM PDTProcedure Date: 01/02/2020 Pre-operative Diagnosis: Rhegmatogenous retinal detachment, left eye Post-operative Diagnosis: Same as pre-operative diagnosis Procedure: Pars plana vitrectomy, left eye Endolaser photocoagulation, left eye Membrane peel, left eye Air-fluid exchange, left eye Silicone oil, left eye Surgeon: Tammy Bagley MD Dietitian: Zaria Walker MD, PhD Anesthesia: MAC with [...] quadrants. Using light pipe, vitrector, and the [facility] viewing system, the retina was inspected. There [...] [facility] | [address] | [place], [place] | | | [facility] | [address] | [address] | | | TESTS | | | [...] + + + | KERRI KEITA | [address] | [place], [place] | | | [facility] | [facility] | [address] | | | TESTS | | | | + + + + + documented in this encounter Visit Diagnoses Not on filedocumented in this encounter Administered Medications + +--------+---------+------+------+------+ [...] | | | + +---+ + +-------+ +--------+---+ + | atropine 1 % ophthalmic drops | Given | 01/02/20 | 1 drop | | Left Eye | | INTRAPROCEDURE PRN, Starting Tue | | 20 11:01 | | | | | 01/02/20 at 1101, Until Tue01/02/20 | | AM PDT | | | | | at 1131 | | | | | | + +-------+ +--------+---+ + +---+---+ | | | +---+---+ + +-------+ +-------+---+ + | balanced salt (BSS) ophthalmic | Given | 01/02/20 | 15 mL | | Left Eye | | irrigation INTRAPROCEDURE PRN, | | 20 11:01 | | | | | Starting 01/02/20 at 1101, | | AM PDT | | | | | Until 01/02/20 at 1131 | | | | | | + +-------+ +-------+---+ + +---+---+ | | | +---+---+ + +-------+ +--------+---+ + | cefuroxime (ZINACEF) injection | Given | 01/02/20 | 125 mg | | Left Eye | | INTRAPROCEDURE PRN, Starting Wed | | 20 11:01 | | | | | 01/02/20 at 1101, Until Tue01/02/20 | | AM PDT | | | | | at 1131 | | | | | | + +-------+ +--------+---+ + +---+---+ | | | +---+---+ + +-------+ +--------+---+---+ | cyclopentolate 1%-PHENYLEPHrine | [...] | +---+---+ + +-------+ +-------+---+ + | dexamethasone (DECADRON) | Given | 01/02/20 | 10 mg | | Left Eye | | injection INTRAPROCEDURE PRN, | | 20 11:01 | | | | | Starting Tue01/02/20 at 1101, | | AM PDT | | | | | Until Tue01/02/20 at 1131 | | | | | | + +-------+ +-------+---+ + +---+---+ | | | +---+---+ + +-------+ + +---+ + | Dilating Solution: BSS Plain | Given | 01/02/20 | 1 Bottle | | Left Eye | | 500 mL - 0.5 mL EPINEPHrine | | 20 11:01 | | | | | (1:1,000) INTRAPROCEDURE PRN, | | AM PDT | | | | | Starting Tue01/02/20 at 1101, | | | | | | | Until Tue01/02/20 at 1131 | | | | | | + +-------+ + +---+ + +---+---+ | | | +---+---+ + +-------+ +---------+---+ + | erythromycin ophthalmic | Given | 01/02/20 | 1 strip | | Left Eye | | ointment INTRAPROCEDURE PRN, | | 20 11:01 | | | | | Starting Tue01/02/20 at 1101, | | AM PDT | | | | | Until Tue01/02/20 at 1131 | | | | | | + +-------+ +---------+---+ + + +---+ | | | + +---+ [...] | | | + +---+ + +-------+ +-------+---+ + | Local with hyaluronidase: | Given | 01/02/20 | 10 mL | | Left Eye | | lidocaine 2% - bupivacaine 0.75% | | 20 11:01 | | | | | - hyaluronidase 150 units/mL 1 mL | | AM PDT | | | | | 1:10:10) INTRAPROCEDURE PRN, | | | | | | | Starting Tue01/02/20 at 1101, | | | | | | | Until Tue01/02/20 at 1131 | | | | | | + +-------+ +-------+---+ + + +---+ | | | + +---+ [...] | | | + +---+ + +-------+ +--------+---+ + | proparacaine (OPHTHAINE) 0.5 % | Given | 01/02/20 | 1 drop | | Left Eye | | ophthalmic drops INTRAPROCEDURE | | 20 11:02 | | | | | PRN, Starting Tue01/02/20 at 1102, | | AM PDT | | | | | Until Tue01/02/20 at 1131 | | | | | | + +-------+ +--------+---+ + +---+---+ | | | +---+---+ documented in this encounter
--- OUTSIDE RECORDS SUMMARY | ~2020-02-04 | XMS | Encounter Summary ---
Demographics + + + | Address | [address] | | | [place] [address] | + + + | Home Phone | | + + + | Preferred Language | Unknown | + + + | Marital Status | | + + + | Sabianism Affiliation | [phone] | + + + [...] [address] | | | | | [address] | | | | | [address] | | + + + + + | Leslie Lentz | ECON | Unknown | | + + + + + Care Team Providers + +------+ + | Care Ambulatory Care Name | Role | Phone | + +------+ + PCP | Unavailable | + +------+ + Reason for Referral [...] | Lumbar | [address] | [address] | | | Required | Surgery | radiculopath | [address] | [address] | | | | [address] | [facility], | [address] | | | | | stenosis of | [place] [address] | [place], | | | | | lumbar | Phone: | [place] [address] | | | | | region | [phone] | Phone: | | | | | Pseudoarthro | Fax: | [phone] | | | | | sis of | [phone] | Fax: | | | | | lumbar spine | | [phone] | | | | | Right foot | | | | | | | drop | | | | | | | Lumbar facet | | | | | | | joint pain | | | +--------+ + + + + + Encounter Details +--------+ [...] | [address] | [place] [address] | Foraminal stenosis | | | | [place] | [phone] | of lumbar region; | | | | [address] | | Pseudoarthrosis of | | | | [phone] | | lumbar spine; Right | | | | | | foot drop; Lumbar | | | | | | [...] + + +--------+ + + | * [facility] General | Outpatient | Routin | Lumbar [...] and foot | + + | Lumbar facet joint pain Other symptoms referable to back | + + documented in this encounter"
--- OUTSIDE RECORDS SUMMARY | ~2020-02-04 | XMS | Encounter Summary ---
Demographics + + + | Address | [address] | | | [place] [address] | + + + | Home Phone | | + + + | Preferred Language | Unknown | + + + | Marital Status | | + + + | Religion Affiliation | 1013 | + + + [...] [place] | | | | | [address] | | + + + + + | Leslie Lentz | ECON | Unknown | | + + + + + Care Team Providers + +------+ + | Care Bench Grinder Name | Role | Phone | + +------+ + PCP | Unavailable | + +------+ + Encounter Details +--------+ + + + + | Date | Type | Department | Care Team | Description | +--------+ + + + + | 12/08/ | Hospital | [facility] | Kai Gillespie MD | Lumbar | | 2017 | Encounter | MED CTR XRAY [address] | radiculopathy; | | | | [place] | [place] [address] | Lumbar facet joint | | | | [place] [address] | [phone] | pain | | | | [phone] | | | +--------+ + + + [...] tablets by | 120 | 0 | 11/16/19 | | | (ROXICODONE) 5 mg | mouth every 4 hours | tablet | | 17 | 7 | | tablet | as needed for [...] LUMBAR SPINE 2 OR | Routin | 12/08/2016 | Lumbar | Results for this | | 3 VW | e | 10:12 AM | radiculopathy | procedure are in the | | | | PDT | Lumbar facet joint | results section. | | | | | pain | | + +--------+ + + + documented in this encounter Results XR Lumbar Spine 2 or 3 Vw (12/08/2016 10:12 AM PDT) + + | Specimen | + + | | + + + + + | Narrative | Performed At | + + + | CLINICAL INFORMATION: post op. COMPARISON: 11/11/2016. | [facility] | | FINDINGS: AP and lateral views of the lumbosacral spine. | [facility] | | Posterior pedicle screw and haylee fusion changes at L3-S1 with interbody | [facility] | | graft spacers. Unchanged position of the graft markers. No evidence | - IMAGING | | of hardware complication. Bilateral total hip arthroplasty | | | changes. Slight levocurvature of the lower thoracic and upper | | | lumbar spine. Stable lumbar spinal alignment. Vertebral body height | | | is unchanged without new vertebral body height loss. Stable | | | multilevel degenerative changes of the lower thoracic and lumbar | | | spine.. IMPRESSION - No evidence of interval complication. | | | Dictated and Signed by: Obie Khoury MD Electronically signed: | | | 12/08/2016 12:08 PM | | + + + + + | Procedure Note | + + | Juni Mcintosh Results In - 12/08/2016 12:11 PM PDT | | CLINICAL INFORMATION: post op. | | | | COMPARISON: 11/11/2016. | | | | FINDINGS: | | AP and lateral views of the lumbosacral spine. | | | | Posterior pedicle screw and haylee fusion changes at L3-S1 with interbody graft | | spacers. Unchanged position of the graft markers. No evidence of hardware | | complication. | | | | Bilateral total hip arthroplasty changes. | | | | Slight levocurvature of the lower thoracic and upper lumbar spine. Stable lumbar | | spinal alignment. Vertebral body height is unchanged without new vertebral body | | height loss. | | | | Stable multilevel degenerative changes of the lower thoracic and lumbar spine.. | | | | | | IMPRESSION - No evidence of interval complication. | | | | Dictated and Signed by: Obie Khoury MD | | Electronically signed: 12/08/2016 12:08 PM | + + + + + + + | Performing | Address | City/State/Zipcode | Phone Number | | Organization | | | | + + + + + | [address] | [address] | [place] | [phone] | | [facility] | | [id number] | | | - IMAGING | | [...]
--- OUTSIDE RECORDS SUMMARY | ~2020-02-04 | XMS | Encounter Summary ---
Demographics + + + | Address | [address] | | | [place] [address] | + + + | Home Phone | | + + + | Preferred Language | Unknown | + + + | Marital Status | | + + + | Latter Day Affiliation | 1013 | + + + | Race | White | + + + | Ethnic Group | Not or | + + + Author + + + | Author | [facility] | | | and [place] | + + + | Organization | [facility] | | | [...] [place] | | | | | [address] | | + + + + + | Leslie Lentz | ECON | Unknown | | + + + + + Care Team Providers + +------+ + | Care Mess Attendant Crew Name | Role | Phone | + +------+ + | Aggie Dunn NP | PCP | | + +------+ + Encounter Details +--------+ + + + + | Date | Type | Department | Care Team | Description | +--------+ + + + + | 01/23/ | Orders Only | [facility] | Bryan Claudio DO | | | 2017 | | [address] | [address] | | | | | [place], [place] | [place] [address] | | | | | [address] | [phone] | | | | | [phone] | | | +--------+ + + + [...] + +--------+ + + + | CULTURE, WOUND, | Routin | 01/23/2018 | | Results for this | | SMEAR, W/ANAEROBE | e | 12:01 AM | | procedure are in the | | | | PDT | | results section. | + +--------+ + + + documented in this encounter Results Culture, Wound, Smear, w/Anaerobe (01/23/2018 12:01 AM PDT) + + | Specimen | + + | | + + + + + | Narrative | Performed At | + + + | Specimen Description OTHER CULTURE | EXTERNAL LAB | | NO GROWTH 2 DAYS | | + + + + +---------+ + + | Performing | Address | City/State/Zipcode | Phone Number | | Organization | | | | + +---------+ + + | EXTERNAL LAB | | | | + +---------+ + + documented in this encounter Visit Diagnoses Not on filedocumented in this encounter"
--- OUTSIDE RECORDS SUMMARY | ~2020-02-04 | XMS | Encounter Summary ---
Demographics + + + | Address | [address] | | | [place] [address] | + + + | Home Phone | | + + + | Preferred Language | Unknown | + + + | Marital Status | | + + + | Caodaism Affiliation | 1013 | + + + | Race | White | + + + | Ethnic Group | Not or | + + + Author + + + | Author | [facility] | | | and [place] | + + + | Organization | [facility] | | | [...] [place] | | | | | [address] | | + + + + + | Leslie Lentz | ECON | Unknown | | + + + + + Care Team Providers + +------+ + | Care Web Weaver Name | Role | Phone | + +------+ + | Aggie Dunn NP | PCP | | + +------+ + Encounter Details +--------+ + + + + | Date | Type | Department | Care Team | Description | +--------+ + + + + | 10/12/ | Hospital | [facility] | Conversion | | | 2019 | Encounter | [facility] | Transaction, | | | | | CLINIC [address] | Provider Unknown | | | | | [address] [place], [place] | [phone] | | | | | [address] | | | | | | [phone] | | | +--------+ + + + [...] + + + | Blood Pressure | 153/87 | 10/12/2018 11:45 AM | | | | | PDT | | + + + + + | Pulse | - | - | | + [...] + + + + | Weight | 119 kg (262 lb 5.6 | 10/12/2018 11:45 AM | | | | oz) | PDT | | + + + + + | Height | 193 cm (6' 4") | 10/12/2018 11:45 AM | | | | | PDT | | + + + + + | Body Mass Index | 31.93 | 10/12/2018 11:45 AM | | | | | PDT [...] mLs by mouth | | 0 | 05/23/19 | | | Hydroxide-Simeth | every 6 [...] | | | | | | | [id number]= 3 | | | | | | | [id number]= 6 | | | | | | | wuoqm744-840= 9 | | | | | | | [id number]= 12 | | | | | | | [id number]= 15 | | | | | | [...] | | | | | | | ugvfa675-792= 6 | | | | | | | rjgru566-185= 9 | | | | | | | burub563-087= 12 | | | | | | | mrpqe569-163= 15 | | | | | | | sawgg670-229= 18 | | | | | | | units | | | | | + + + +---------+ + + | insulin NPH | Inject 80 Units into | | 0 | 07/11/19 | | | (NOVOLIN N) 100 | [...] + + documented as of this encounter Procedure Notes Conversion Transaction, Provider Unknown - 10/12/2018 2:46 PM PDTFormatting of this note m ight be different from the original. Pre-Procedure Instructions by Sonya Levin RN at 10/12/18 144 Author: Sonya Levin RN Service: (none) Author Type: Registered Nurse Filed: 10/12/18 3694 Date of Service: 10/12/181445 Status: Addendum Remotely Piloted Vehicle Controller: Sonya Levin RN (Registered Nurse) Related Notes: Original Note by Sonya Levin RN (Registered Nurse) filed at 09/24 1449 Today in pre admissions pt had a glucose level of 403; Dr. Figueroa, anesthesia, notified; will recheck BS on day of scopes and treat accordingly. onver bora Transaction, Provider Unknown - 10/12/2018 11:45 AM PDT Pre-Procedure Instructions by Sonya Levin RN at 10/12/18 1046 Author: Sonya Levin RN Service: (none) Author Type: Registered Nurse Filed: 10/12/18 1145 Date of Service: 10/12/18 114 Status: Signed Remotely Piloted Vehicle Controller: Sonya Levin RN (Registered Nurse) Pt meets mets of 4; denies CP or SOB. docume nted in this encounter Plan of Treatment Not on filedocumented as of this encounter Procedures + +--------+ + + + | Procedure Name | Priori | Date/Time | Associated Diagnosis | Comments | | | ty | | | | + +--------+ + + + | BASIC METABOLIC | Routin | 10/12/2018 | | Results for this | | PANEL | e | 11:20 AM | | procedure are in the | | | | PDT | | results section. | + +--------+ + + + documented in this encounter Results Basic Metabolic Panel (10/12/2018 11:20 AM PDT) + + + + + + | Component | Value | Ref Range | Performed | Pathologist | | | | | At | Signature | + + + + + + | Na | 140 | 135 - 145 | EXTERNAL | | | | | mmol/L | LAB | | + + + + + + | K | 4.3 | 3.5 - 4.9 | EXTERNAL | | | | | mmol/L | LAB | | + + + + + + | Cl | 106 | 99 - 109 mmol/L | EXTERNAL | | | | | | LAB | | + + + + + + | CO2 | 29 | 23 - 32 mmol/L | EXTERNAL | | | | | | LAB | | + + + + + + | Anion Gap | 9 | 5 - 20 mmol/L | EXTERNAL | | | | | | LAB | | + + + + + + | Glucose, | 403 (H) | 65 - 99 mg/dL | EXTERNAL | | | Fasting | | | LAB | | + + + + + + | BUN | 20 | 8 - 25 mg/dL | EXTERNAL | | | | | | LAB | | + + + + + + | Creatinine | 1.04 | 0.70 - 1.30 | EXTERNAL | | | | | mg/dL | LAB | | + + + + + + | BUN/Creatin | 19 | | EXTERNAL | | | ine Ratio | | | LAB | | + + + + + + | Calcium | 8.9 | 8.5 - 10.5 | EXTERNAL | | | | | mg/dL | LAB | | + + + + + + | Estimated | >60Comment: GFR <60: | mL/min/1.73m2 | EXTERNAL | | | GFR | CHRONIC KIDNEY DISEASE, | | LAB | | | | IF FOUND OVER A 3 MONTH | | | | | | PERIOD.GFR <15: KIDNEY | | | | | | FAILURE.FOR | | | | | | AMERICANS, MULTIPLY THE | | | | | | CALCULATED GFR BY | | | | | | 1.210.This eGFR is | | | | | | calculated using the | | | | | | MDRD IDMS traceable | | | | | | equation.Testing | | | | | | performed at [facility] [place] | | | | | | [facility];[place], [place] | | | | | | [address] | | | | + + + [...]
--- OUTSIDE RECORDS SUMMARY | ~2020-02-04 | XMS | Encounter Summary ---
Demographics + + + | Address | [address] | | | [place] [address] | + + + | Home Phone | | + + + | Preferred Language | Unknown | + + + | Marital Status | | + + + | Spiritism Affiliation | 1013 | + + + | Race | White | + + + | Ethnic Group | Not or | + + + Author + + + | Author | [facility] | | | and [place] | + + + | Organization | [facility] | | [...] [place] | | | | | [address] | | + + + + + | Leslie Lentz | ECON | Unknown | | + + + + + Care Team Providers + +------+ + | Care Staff Home Therapy Rn Name | Role | Phone | + +------+ + PCP | Unavailable | + +------+ + Encounter Details +--------+ + + + + | Date | Type | Department | Care Team | Description | +--------+ + + + + | 09/14/ | Episode | [facility] | Breanne Kamara, | | | 2017 | Changes | NEUROSURGERY [address] | Social And Political Studies Professor | | | | | [address] | | | | | | [place] | | | | | | [address] | | | | | | [phone] | | | +--------+ + + + [...]
--- OUTSIDE RECORDS SUMMARY | ~2020-02-04 | XMS | Encounter Summary ---
Demographics + + + | Address | [address] | | | [place] [address] | + + + | Home Phone | | + + + | Preferred Language | Unknown | + + + | Marital Status | | + + + | Yazidi Affiliation | 1013 | + + + | Race | White | + + + | Ethnic Group | Not or | + + + Author + + + | Author | [facility] | | | and [place] | + + + | Organization | [facility] | | | [...] [address] [place] | | | | | [address] | | + + + + + | Leslie Lentz | ECON | Unknown | | + + + + + Care Team Providers + +------+ + | Care Destaticizer Feeder Name | Role | Phone | + [...] | | | | | | hesis of | | | | | | | lumbar | | | | | | | region | | | | | | | (M43.16), | | | | | | | Neural | | | | | | | foraminal | | | | | | | stenosis of | | | | | | | lumbar spine | | | | | | | (M99.83), | | | | | | | Lumbar | | | | | | | radiculopath | | | | | | | y (M54.16), | | | | | | | Spinal | | | | | | | stenosis, | | | | | | | lumbar | | | | | | | region, | | | | | | | without | | | | | | | neurogenic | | | | | | | claudication | | | | | | | (M48.06), | | | | | | | Degeneration | | | | | | | of lumbar | | | | | | | intervertebr | | | | | | | al disc | | | | | | | (M51.36) | | | | | | | Procedures | | | | | | | TX ARTHDSIS | | | | | | | POST/POSTERO | | | | | | | LATRL/POSTIN | | | | | | | TERBODY | | | | | | | LUMBAR TX | | | | | | | SPINE | | | | | | | FUSN,POST | | | | | | | TECH,EA | | | | | | | ADDNL SGMT | | | | | | | TX LUMBAR | | | | | | | SPINE | | | | | | | FUSION,ANTER | | | | | | | APPRCH | | | | | | | POSTERIOR | | | | | | | SEGMENTAL | | | | | | | INSTRUMENTAT | | | | | | | ION 3-6 VRT | | | | | | | SEG | | | | | | | LAMINEC/FACE | | | | | | | TECT/FORAMIN | | | | | | | ,LUMBAR 1 | | | | | | | SEG TX | | | | | | | LAMINEC/FACE | | | | | | | TECT/FORAMIN | | | | | | | ,EACH ADDNL | | | | | | | TX INSJ | | | | | | | BIOMCHN DEV | | | | | | | INTERVERTEBR | | | | | | | AL DSC SPC | | | | | | | W/ARTHRD TX | | | | | | | APPLICATION | | | | | | | | | | | | | | INTERVERTEBR | | | | | | | AL | | | | | | | BIOMECHANICA | | | | | | | L DEVICE | | | | | | | L3-4 Lateral | | | | | | | Anterior | | | | | | | Interbody | | | | | | | Fusion, L3-4 | | | | | | | Lumbar | | | | | | | Decompressio | | | | | | | n & Fusion, | | | | | | | L5-S1 | | | | | | | Transforamin | | | | | | | al Lumbar | | | | | | | Interbody | | | | | | | Fusion | | | +--------+--------+ + + + + Encounter Details +--------+---------+ + + + | Date | Type | Department | Care Team | Description | +--------+---------+ + + + | 11/11/ | Surgery | [facility] | Kai Gillespie MD | L3-4 Lateral | | 2016 | | [facility] CTR [facility] | [address] | Anterior Interbody | | | | [address] | [place] [address] | Fusion, L3-4 Lumbar | | | | ELIAS [facility] | [phone] | Decompression & | | | | [phone] | | Fusion, L5-S1 | | | | [phone] | | Transforaminal | | | | | | Lumbar Interbody | | | | | | Fusion | +--------+---------+ + + + Social History [...] + + + | Blood Pressure | 135/85 | 11/11/2016 8:46 AM | | | | | PDT | | + + + + + | Pulse | 92 | 11/11/2016 8:46 AM | | | | | PDT | | + + + + + | Temperature | 36.6 C (97.9 F) | 11/11/2016 8:46 AM | | | | | PDT | | + + + + + | Respiratory Rate | 18 | 11/11/2016 8:46 AM | | | | | PDT | | + + + + + | Oxygen Saturation | 94% | 11/11/2016 8:46 AM | | | | | PDT | | + + + + + | Inhaled Oxygen | - | - | | | Concentration | | | | + + + + + | Weight | 122.5 kg (270 lb) | 11/11/2016 8:46 AM | | | | | PDT | | + + + + + | Height | 193 cm (6' 4") | 11/11/2016 8:46 AM | | | | | PDT | | + + + + + | Body Mass Index | 33.65 | 11/11/2016 8:46 AM | | | | | PDT [...] documented as of this encounter Discharge Summaries Kai Gillespie MD - 11/28/2016 6:07 AM PDTFormatting of this note might be different from t johny original. 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) Lumbar radiculopathy (M54.16) Spinal stenosis, lumbar region, without neurogenic claudication (M48.06), Degeneration of lumbar intervertebral disc (M51.36) Severe morbid obesiyy, BMI > 40 Chronic opioid use S/p lumbar fusion with pseudoarthrosis and complicated by infection Osteopenia Secondary Discharge Dx(s): Patient Active Problem List Diagnosis HTN (hypertension) Diabetes mellitus Lumbar facet joint pain Lumbar radiculopathy MRSA (methicillin resistant Staphylococcus aureus) Obesity (BMI 30-39.9) Anxiety Depression Graves disease Diabetes type 2, controlled Obstructive sleep apnea syndrome Procedures 1. Minimally invasive lumbar fusion via anterior and posterior approaches 2. Combined posteriolateral and posterior interbody arthrodesis L5-S1 3. Anterior lumbar interbody arthrodesis L3-4, L4-5 4. Posterolateral lumbar arthrodesis L3, L4, L5 5. Posterior spinal instrumentation L3-S1 with use of Precept 6. Placement of PEEK interbody spacer L3-4, L4-5, L5-S1 7. L5 laminectomy, L5-S1 facetectomy, L5 and S1 foraminotomy for decompression of L5 and S1 nerves 8. Microsurgical technique with use of operating microscope 9. Intraoperative fluoroscopy for spinal instrumentation Hospital Course: The patient was admitted for planned surgery. He had a lumbar fusion completed with note o f fairly poor bone quality for his age and obesity making the surgery and expected recovery more challenging. After surgery, he had difficulty with mobilization. He was mobilized mar ginally. The patient was discharged to SNF to assist with their further rehab. Condition on Discharge: Stable Discharge Medications: Discharge Medications New Medications Details lactulose 10 g/15 mL solution Take 30 mLs by mouth 2 times daily. oxyCODONE 5 mg tablet Take 1-4 tablets by mouth every 4 hours as needed for Pain. aka: ROXICODONE Changed Medications Details cyclobenzaprine 10 mg tablet Take 1 tablet by mouth every 6 hours as needed for Muscle spasms. What changed: reasons to take this aka: FLEXERIL gabapentin 300 mg capsule Take 2 capsules by mouth 3 times daily. What changed: how much to take aka: NEURONTIN LORazepam 1 mg tablet Take 0.5-1 tablets by mouth Twice daily as needed for Anxiety. What changed: Another medication with the same name was added. Make sure you understand ho w and when to take each. aka: ATIVAN LORazepam 0.5 mg tablet Take 1-2 tablets by mouth Twice daily as needed for Anxiety. What changed: You were already taking a medication with the same name, and this prescripti on was added. Make sure you understand how and when to take each. aka: ATIVAN Unchanged Medications Details aspirin 81 mg EC tablet Take 81 mg by mouth Daily. cholecalciferol 2000 units Tabs Take 2,000 Units by mouth Daily. aka: VITAMIN D-[address] capsule Take 60 mg by mouth Daily. aka: CYMBALTA insulin glulisine 100 units/mL injection Inject 20 Units under the skin 3 times daily (with meals). aka: APIDRA irbesartan-hydrochlorothiazide 150-12.5 MG per tablet Take 1 tablet by mouth Daily. aka: AVALIDE LEVEMIR 100 units/mL injection (vial) Generic drug: [...] HYDROcodone-acetaminophen 10-325 mg per tablet aka: NORCO ibuprofen 600 MG tablet aka: ADVIL,MOTRIN methocarbamol 750 mg tablet aka: ROBAXIN traMADol 50 mg tablet aka: ULTRAM ; Current Discharge Medication List START taking these medications Medication Dose Last Dose Taken; lactulose 10 g/15 mL solution 30 mLs Take 30 mLs by mouth 2 times daily. Quantity: 240 mL Refills: 3 Start date: 11/15/2016 oxyCODONE (ROXICODONE) 5 mg tablet 5-20 mg Take 1-4 tablets by mouth every 4 hours as needed for Pain. Quantity: 120 tablet Refills: 0 Start date: 11/15/2016 CONTINUE these medications which have CHANGED or have been refilled with a NEW PRESCRIPTIO N Medication Dose Last Dose Taken; cyclobenzaprine (FLEXERIL) 10 mg tablet 10 mg Take 1 tablet by mouth every 6 hours as needed for Muscle spasms. Quantity: 90 tablet Refills: 2 Start date: 11/15/2016 gabapentin (NEURONTIN) 300 mg capsule 600 mg Take 2 capsules by mouth 3 times daily. Quantity: 180 capsule Refills: 1 Start date: 11/15/2016 !! LORazepam (ATIVAN) 0.5 mg tablet 0.5-1 mg Take 1-2 tablets by mouth Twice daily as needed for Anxiety. Quantity: 30 tablet Refills: 0 Start date: 11/15/2016 !! Potential duplicate medications found. Please discuss with provider. CONTINUE these medications which have NOT CHANGED Medication Dose Last Dose Taken; aspirin 81 mg EC tablet 81 mg Take 81 mg by mouth Daily. cholecalciferol (VITAMIN D-3) 2000 units TABS 2,000 Units Take 2,000 Units by mouth Daily. DULoxetine (CYMBALTA) [address] capsule 60 mg Take 60 mg by mouth Daily. Refills: 0 insulin detemir (LEVEMIR) 100 units/mL injection (vial) 80 Units Inject 80 Units under the skin 2 times daily. insulin glulisine (APIDRA) 100 units/mL injection 20 Units Inject 20 Units under the skin 3 times daily (with meals). irbesartan-hydrochlorothiazide (AVALIDE) 150-12.5 MG per tablet 1 tablet Take 1 tablet by mouth Daily. !! LORazepam (ATIVAN) 1 mg tablet 0.5-1 tablets Take 0.5-1 tablets by mouth Twice daily as needed for Anxiety. Refills: 0 magnesium, as oxide, 250 MG tablet 250 mg Take 250 mg by mouth Daily. metFORMIN (GLUCOPHAGE) 1000 MG tablet 1,000 mg Take 1,000 mg by mouth 2 times daily (with breakfast & dinner). NOVOLIN N 100 UNIT/ML injection Inject under the skin 3 times daily (before meals). Sliding scale Refills: 3 potassium 99 mg tablet 99 mg Take 99 mg by mouth Daily. !! Potential duplicate medications found. Please discuss with provider. Follow-Up: 3-4 weeks. documented in this encou nter Discharge Instructions Instructions Sonido Lund PA-C - 11/15/2016Discharge Instructions for Lumbar Fusio n You had a lumbar fusion. During this procedure, your doctor locked together (fused) some of the bones in your spine. This limits the movement of these bones to help relieve your pain. Here s what you need to know about home care following a spinal fusion. Activity Arrange your household to keep the items you need within reach. Remove electrical cords, throw rugs, and anything else that may cause you to fall. Use a walkeror handrails until your balance, flexibility, and strength improve. And re member to ask for help from others when you need it. Free up your hands so that you can use them to keep balance. Use a césar pack, apron, or pockets to carry things. Be sure not to carry too much at once. Don t bend or twist at the waist, or raise your hands over your head for the first two weeks after your surgery. Don t lift anything heavier than 5 pounds for the first four weeks after surgery. Don t sit for more than30 to 45 minutes at a time. Take frequent short walks. They a re the nguyen to your recovery. As your back feels better please gradually increase the distanc e you walk as discussed with your provider. Don t drive until your doctor says it s OK. And never drive while you are taking opi oid pain medication. Nap if you are tired, but don t stay in bed all day. Use chairs with arms. The arms make it easier for you to stand up and sit down. If you have not yet received instructions about physical therapy, ask your doctor about them. Incision care Check your incision daily for redness, tenderness, or drainage. Don t soak your wound in water (no hot tubs, bathtubs, swimming pools) until your doct or says it s OK. As long as you keep your incision dry you can shower as desired. After 5 days you may le t shower water run over the incision but do not submerse the incision under water until afte r you see your provider. Gently pat the incision dry. Don t rub it, or apply creams or lot ions. And if you feel unsteady while standing to shower, use a shower stool or chair. Other home care Use nonslip bath mats, grab bars, an elevated toilet seat, and a shower chair in your ba throom. Take your medication exactly as directed. Don t take nonsteroidal anti-inflammatory medications (NSAIDs), such as ibuprofen. The y may delay or prevent proper fusion of the spine. If you smoke, stop! This will be one of the most important things you can do to help you recover from surgery. Wear your back brace, if one was prescribed, as directed by your doctor. Follow-up Most patients will be seen approximately 4 weeks after surgery. Be sure to get your 1 mo nth post op x-rays prior to your 1 month post op appointment before your appointment. 5217-2013 [employer] [address] [place] [address]. All righ ts reserved. This information is not intended as a substitute for professional medical care. Always follow your healthcare professional's instructions. documented in this encounter Medications at Time [...] documented as of this encounter Progress Notes Anahi Moore RN - 11/14/2016 11:04 AM PDTDischarge planning update; Mr. Mustafa told Dr. Singh this morning he'd rather go to a SNF instead of home with home health as discusse d on 11/12. This morning he states he feels he is still too weak to manage at home. "My is tiny an d wouldn't be much help if I were to fall". Requesting subacute rehab at [facility]. Formal referral sent. States his sister is planning on transporting him to [place]. Kayy rivas Tuesday discharge to [facility]. CM follow up with Godwin at facility 11/15 a.m. Electronically signed by: Anahi Moore RN 11/14/2016 11:08 1222; Rec'd call from Godwin. She will review referral and follow up with Nelly in the a.m. E lectronically signed by: Anahi Moore RN 11/14/2016 12:23 David Oconnor, - 11/14/2016 8:05 AM PDT [facility] NEUROSURGERY PROGRESS NOTE PATIENT NAME: Lele Mustafa AGE: 56 y.o. DATE OF SERVICE: 11/14/2016 8:05 S: The patient is doing okay this AM. He complains of back pain after ambulating, medicati ons is working but he needs it more regularly. Voiding well. Passing flatus. He would like t o discharge to SNF tomorrow if possible. O: CURRENT MEDICATIONS: Current Facility-Administered Medications Medication Dose Route Frequency Provider Last Rate Last Dose acetaminophen (TYLENOL) tablet 650 mg 650 mg Oral Q4H PRN Sonido Lund PA-C 650 mg at 11/12/16 2248 aluminum & magnesium hydroxide-simethicone (MAALOX PLUS REGULAR STRENGTH) 200-200-20 mg /5 mL suspension 30 mL 30 mL Oral Q6H PRN Sonido Lund PA-C bisacodyl (DULCOLAX) suppository 10 mg 10 mg Rectal Daily PRN TIMMY Thompson calcium carbonate (TUMS) chewable tablet 1,000 mg 1,000 mg Oral Q2H PRN Sonido Lund PA-C cyclobenzaprine (FLEXERIL) tablet 10 mg 10 mg Oral Q6H PRN Sonido Lund PA-C 10 mg at 11/14/16 0648 dextrose 50% injection 12.5 g 12.5 g Intravenous PRN Sonido Lund PA-C diphenhydrAMINE (BENADRYL) injection 12.5 mg 12.5 mg Intravenous Q4H PRN Sonido Lund PA-C Or diphenhydrAMINE (BENADRYL) tablet 25 mg 25 mg Oral Q4H PRN Sonido Lund PA-C Or diphenhydrAMINE (BENADRYL) 12.5 mg/5 mL liquid 25 mg 25 mg Oral Q4H PRN Sonido Lund PA-C docusate sodium (COLACE) capsule 100 mg 100 mg Oral BID Sonido Lund PA-C 10 0 mg at 11/13/162042 DULoxetine (CYMBALTA) DR capsule 60 mg 60 mg Oral Daily Sonido Lund PA-C 60 mg at 11/13/16816 enalaprilat (VASOTEC) injection 1.25 mg 1.25 mg Intravenous Q6H PRN Sonido tolentino PA-C gabapentin (NEURONTIN) capsule 600 mg 600 mg Oral TID Sonido Lund PA-C 600 mg at 11/13/162042 hydroCHLOROthiazide (MICROZIDE) capsule 12.5 mg 12.5 mg Oral Daily Sonido Lund PA-C 12.5 mg at 11/13/16816 HYDROmorphone (DILAUDID) injection 0.25-1 mg 0.25-1 mg Intravenous Q2H PRN Sonido Lund PA-C 1 mg at 11/13/16 140 insulin glargine (LANTUS SOLOSTAR) 100 units/mL injection (pen) 80 Units 80 Units Subc utaneous 2 times per day Sonido Lund PA-C 80 Units at 11/13/162058 insulin lispro (humaLOG KWIKPEN) 100 units/mL injection (pen) 0-18 Units 0-18 Units Villeda bcutaneous 4x Daily WC and HS Kai Gillespie MD 3 Units at 11/13/162058 labetalol (TRANDATE) 5 mg/mL injection 10 mg 10 mg Intravenous Q1H PRN Sonido Lund PA-C lactated ringers (LR) infusion Intravenous Continuous Kai Gillespie MD 50 mL/hr at 0543 lactulose liquid 30 mL 30 mL Oral BID Sonido Lund PA-C 30 mL at 11/13/16 43 LORazepam (ATIVAN) tablet 0.5-1 mg 0.5-1 mg Oral BID PRN Sonido Lund PA-C losartan (COZAAR) tablet 50 mg 50 mg Oral Daily Sonido Lund PA-C 50 mg at 0 11/13/16 0816 magnesium hydroxide (MILK OF MAGNESIA) 400 mg/5 mL suspension 30 mL 30 mL Oral Nightly PRN Sonido Lund PA-C menthol (HALLS COUGH DROP) lozenge 1 lozenge 1 lozenge Buccal Q2H PRN Sonido addison PA-C metoclopramide (REGLAN) 5 mg/mL injection 10 mg 10 mg Intravenous Q4H PRN Sonido Lund PA-C metoclopramide (REGLAN) tablet 10 mg 10 mg Oral Q4H PRN Sonido Lund PA-C ondansetron (ZOFRAN ODT) disintegrating tablet 4 mg 4 mg Oral Q6H PRN Sonido addison PA-C ondansetron (ZOFRAN) injection 4 mg 4 mg Intravenous Q6H PRN Sonido Lund PA-C oxyCODONE (ROXICODONE) tablet 5-20 mg 5-20 mg Oral Q4H PRN Sonido Lund PA-C 20 mg at 11/14/16 0541 phenol (CHLORASEPTIC) spray 1-2 spray 1-2 spray Mouth/Throat Q3H PRN Sonido dimas PA-C polyethylene glycol (MIRALAX) powder 17 g 17 g Oral Daily PRN TIMMY Thompson prochlorperazine (COMPAZINE) tablet 10 mg 10 mg Oral Q6H PRN Sonido Lund PA-C senna (SENOKOT) tablet 8.6 mg 8.6 mg Oral BID Sonido Lund PA-C 8.6 mg at 3 ALLERGIES: Allergies Allergen Reactions Codeine Other (See Comments) "makes my skin crawl" Morphine Swelling Joint swelling PHYSICAL EXAMINATION: Temp: [36.7 C (98.1 F)-37.4 C (99.3 F)] 37.3 C (99.1 F) Pulse: [89-108] 105 Resp: [15-20] 16 BP: (100-115)/(60-70) 115/70 Intake/Output Summary (Last 24 hours) at 11/14/16 0805 Last data filed at 11/14/16 0650 Gross per 24 hour Intake 1900 ml Output 2045 ml Net -145 ml GENERAL: Lele Mustafa is in no acute distress with unlabored respirations. HEENT: HEAD/FACE: EYES: Normocephalic and atraumatic. There are no areas of recent trauma. Normal sclerae without icterus. CHEST: Clear. HEART: Regular. EXTREMITIES: No edema or swelling. SCD's BACK: The back incisions are dress and a drain is in place with expected output. NEUROLOGICAL EXAM: MENTAL STATUS: The patient is awake, alert, and oriented. He follows simple and complex commands. He speech is fluent, his comprehends speech well, and his repeats well. He has no apparent deficits with short or residential memory. MOTOR EXAM: Motor strength 4/5 right hip flex. 3/5 right dorsi/plantar flexion SENSORY EXAM: Sensory exam is stable 24 HOUR LABS: All Component Based Labs 11/12/16 0636 11/11/168 11/11/16 0936 Glucose, POC 323(H) 331(H) 280(H) ASSESSMENT: NEUROSURGICAL DIAGNOSES: S/p lumbar fusion HOSPITAL/GENERAL [...] lumbar fusion, Hospital day 3 - Neurologically RT foot weakness - Please continue with oxycodone 20mg PRN q4hrs for pain. Muscle relaxants intermittently - Medically stable - Mobilize, PT/OT - SCD's - Working on BM/bowel function. Encouraged activity and medications to assist - Drain output is as expected. Continue drain - Disp: SNF once arranged. Would be ready tomorrow. ELECTRONICALLY SIGNED BY: David Singh DO, 11/14/2016 8:05 Sree Lawton PA-C - 11/13/2016 8:43 AM PDT [facility] NEUROSURGERY PROGRESS NOTE PATIENT NAME: Lele Mustafa AGE: 56 y.o. DATE OF SERVICE: 11/13/2016 8:43 S: The patient is doing okay this AM. He complains of back pain after ambulating, medicati ons is working but he needs it more regularly. Voiding well. Passing flatus. He needs one mo re day before discharge. O: CURRENT MEDICATIONS: Current Facility-Administered Medications Medication Dose Route Frequency Provider Last Rate Last Dose acetaminophen (TYLENOL) tablet 650 mg 650 mg Oral Q4H PRN Sonido Lund PA-C 650 mg at 11/12/16 2248 aluminum & magnesium hydroxide-simethicone (MAALOX PLUS REGULAR STRENGTH) 200-200-20 mg /5 mL suspension 30 mL 30 mL Oral Q6H PRN Sonido Lund PA-C bisacodyl (DULCOLAX) suppository 10 mg 10 mg Rectal Daily PRN TIMMY Thompson calcium carbonate (TUMS) chewable tablet 1,000 mg 1,000 mg Oral Q2H PRN Sonido Lund PA-C cyclobenzaprine (FLEXERIL) tablet 10 mg 10 mg Oral Q6H PRN Sonido Lund PA-C 10 mg at 11/13/16 0457 dextrose 50% injection 12.5 g 12.5 g Intravenous PRN Sonido Lund PA-C diphenhydrAMINE (BENADRYL) injection 12.5 mg 12.5 mg Intravenous Q4H PRN Sonido Lund PA-C Or diphenhydrAMINE (BENADRYL) tablet 25 mg 25 mg Oral Q4H PRN Sonido Lund PA-C Or diphenhydrAMINE (BENADRYL) 12.5 mg/5 mL liquid 25 mg 25 mg Oral Q4H PRN Sonido Lund PA-C docusate sodium (COLACE) capsule 100 mg 100 mg Oral BID Sonido Lund PA-C 10 0 mg at 11/13/16 0817 DULoxetine (CYMBALTA) DR capsule 60 mg 60 mg Oral Daily Sonido Lund PA-C 60 mg at 11/13/16 0817 enalaprilat (VASOTEC) injection 1.25 mg 1.25 mg Intravenous Q6H PRN Sonido tolentino PA-C gabapentin (NEURONTIN) capsule 600 mg 600 mg Oral TID Sonido Lund PA-C 600 mg at 11/13/16 0817 hydroCHLOROthiazide (MICROZIDE) capsule 12.5 mg 12.5 mg Oral Daily Sonido Lund PA-C 12.5 mg at 11/13/16 0817 HYDROmorphone (DILAUDID) injection 0.25-1 mg 0.25-1 mg Intravenous Q2H PRN Sonido Lund PA-C 1 mg at 11/13/16 0622 insulin glargine (LANTUS SOLOSTAR) 100 units/mL injection (pen) 80 Units 80 Units Subc utaneous 2 times per day Sonido Lund PA-C 80 Units at 11/12/16 2144 insulin lispro (humaLOG KWIKPEN) 100 units/mL injection (pen) 0-18 Units 0-18 Units Villeda bcutaneous 4x Daily WC and HS Kai Gillespie MD 6 Units at 11/12/16 2145 labetalol (TRANDATE) 5 mg/mL injection 10 mg 10 mg Intravenous Q1H PRN Sonido Lund PA-C lactated ringers (LR) infusion Intravenous Continuous Kai Gillespie MD 50 mL/hr at 0543 lactulose liquid 30 mL 30 mL Oral BID Sonido Lund PA-C 30 mL at 11/13/16 08 17 LORazepam (ATIVAN) tablet 0.5-1 mg 0.5-1 mg Oral BID PRN Sonido Lund PA-C losartan (COZAAR) tablet 50 mg 50 mg Oral Daily Sonido Lund PA-C 50 mg at 0 11/13/16 0816 magnesium hydroxide (MILK OF MAGNESIA) 400 mg/5 mL suspension 30 mL 30 mL Oral Nightly PRN Sonido Lund PA-C menthol (HALLS COUGH DROP) lozenge 1 lozenge 1 lozenge Buccal Q2H PRN Sonido addison PA-C metoclopramide (REGLAN) 5 mg/mL injection 10 mg 10 mg Intravenous Q4H PRN Sonido Lund PA-C metoclopramide (REGLAN) tablet 10 mg 10 mg Oral Q4H PRN Sonido Lund PA-C ondansetron (ZOFRAN ODT) disintegrating tablet 4 mg 4 mg Oral Q6H PRN Sonido addison PA-C ondansetron (ZOFRAN) injection 4 mg 4 mg Intravenous Q6H PRN Sonido Lund PA-C oxyCODONE (ROXICODONE) tablet 5-20 mg 5-20 mg Oral Q4H PRN Sonido Lund PA-C 20 mg at 11/13/16 0816 phenol (CHLORASEPTIC) spray 1-2 spray 1-2 spray Mouth/Throat Q3H PRN Sonido dimas PA-C polyethylene glycol (MIRALAX) powder 17 g 17 g Oral Daily PRN TIMMY Thompson prochlorperazine (COMPAZINE) tablet 10 mg 10 mg Oral Q6H PRN Sonido Lund PA-C senna (SENOKOT) tablet 8.6 mg 8.6 mg Oral BID Sonido Lund PA-C 8.6 mg at 0816 ALLERGIES: Allergies Allergen Reactions Codeine Other (See Comments) "makes my skin crawl" Morphine Swelling Joint swelling PHYSICAL EXAMINATION: Temp: [36.2 C (97.2 F)-37 C (98.6 F)] 37 C (98.6 F) Pulse: [70-118] 88 Resp: [18-20] 20 BP: (102-132)/(55-70) 102/55 Intake/Output Summary (Last 24 hours) at 11/13/16 0843 Last data filed at 11/13/16 0459 Gross per 24 hour Intake 1580 ml Output 2030 ml Net -450 ml GENERAL: Lele Mustafa is in no acute distress with unlabored respirations. HEENT: HEAD/FACE: EYES: Normocephalic and atraumatic. There are no areas of recent trauma. Normal sclerae without icterus. CHEST: Clear. HEART: Regular. EXTREMITIES: No edema or swelling. SCD's BACK: The back incisions are dress and a drain is in place with expected output. NEUROLOGICAL EXAM: MENTAL STATUS: The patient is awake, alert, and oriented. He follows simple and complex commands. He speech is fluent, his comprehends speech well, and his repeats well. He has no apparent deficits with short or residential memory. MOTOR EXAM: Motor strength 4/5 right hip flex. 3/5 right dorsi/plantar flexion SENSORY EXAM: Sensory exam is stable 24 HOUR LABS: All Component Based Labs 11/12/16 0636 11/11/168 11/11/16 0936 Glucose, POC 323(H) 331(H) 280(H) ASSESSMENT: NEUROSURGICAL DIAGNOSES: S/p lumbar fusion HOSPITAL/GENERAL [...] lumbar fusion, Hospital day 2 - Neurologically RT foot weakness - Please continue with oxycodone 20mg PRN q4hrs for pain. Muscle relaxants intermittently - Medically stable - Mobilize, PT/OT - SCD's - Working on BM/bowel function. Encouraged activity and medications to assist - Drain output is as expected. Continue drain - Disp: Home tomorrow ELECTRONICALLY SIGNED BY: Sree Cunha PA-C, 11/13/2016 8:43 est, Sonido Manley PA-C - 11/13/19 17 8:02 AM PDT [facility] NEUROSURGERY PROGRESS NOTE PATIENT NAME: Lele Mustafa AGE: 56 y.o. DATE OF SERVICE: 11/12/2016 8:03 S: The patient complains of stable pain. The leg symptoms are improved to some degree. Th e patient has mobilized well. The patient had a salazar placed but is passing flatus. O: CURRENT MEDICATIONS: Current Facility-Administered Medications Medication Dose Route Frequency Provider Last Rate Last Dose acetaminophen (TYLENOL) tablet 650 mg 650 mg Oral Q4H PRN Sonido Lund PA-C aluminum & magnesium hydroxide-simethicone (MAALOX PLUS REGULAR STRENGTH) 200-200-20 mg /5 mL suspension 30 mL 30 mL Oral Q6H PRN Sonido Lund PA-C bisacodyl (DULCOLAX) suppository 10 mg 10 mg Rectal Daily PRN TIMMY Thompson calcium carbonate (TUMS) chewable tablet 1,000 mg 1,000 mg Oral Q2H PRN Sonido Lund PA-C cyclobenzaprine (FLEXERIL) tablet 10 mg 10 mg Oral Q6H PRN Sonido Lund PA-C 10 mg at 11/11/162306 dextrose 50% injection 12.5 g 12.5 g Intravenous PRN Sonido Lund PA-C diphenhydrAMINE (BENADRYL) injection 12.5 mg 12.5 mg Intravenous Q4H PRN Sonido Lund PA-C Or diphenhydrAMINE (BENADRYL) tablet 25 mg 25 mg Oral Q4H PRN Sonido Lund PA-C Or diphenhydrAMINE (BENADRYL) 12.5 mg/5 mL liquid 25 mg 25 mg Oral Q4H PRN Sonido Lund PA-C docusate sodium (COLACE) capsule 100 mg 100 mg Oral BID Sonido Lund PA-C 10 0 mg at 11/11/162023 DULoxetine (CYMBALTA) DR capsule 60 mg 60 mg Oral Daily Sonido Lund PA-C enalaprilat (VASOTEC) injection 1.25 mg 1.25 mg Intravenous Q6H PRN Sonido tolentino PA-C gabapentin (NEURONTIN) capsule 600 mg 600 mg Oral TID Sonido Lund PA-C 600 mg at 11/11/162022 hydroCHLOROthiazide (MICROZIDE) capsule 12.5 mg 12.5 mg Oral Daily Sonido Lund PA-C 12.5 mg at 11/11/162024 HYDROmorphone (DILAUDID) injection 0.25-1 mg 0.25-1 mg Intravenous Q2H PRN Sonido Lund PA-C 1 mg at 11/12/16 0637 insulin glargine (LANTUS SOLOSTAR) 100 units/mL injection (pen) 80 Units 80 Units Subc utaneous 2 times per day Sonido Lund PA-C 80 Units at 11/11/16 2034 insulin lispro (humaLOG KWIKPEN) 100 units/mL injection (pen) 0-18 Units 0-18 Units Villeda bcutaneous 4x Daily WC and HS Kai Gillespie MD labetalol (TRANDATE) 5 mg/mL injection 10 mg 10 mg Intravenous Q1H PRN Sonido Lund PA-C lactated ringers (LR) infusion Intravenous Continuous Kai Gillespie MD 50 mL/hr at 0543 lactulose liquid 30 mL 30 mL Oral BID Sonido Lund PA-C 30 mL at 11/11/16 20 23 LORazepam (ATIVAN) tablet 0.5-1 mg 0.5-1 mg Oral BID PRN Sonido Lund PA-C losartan (COZAAR) tablet 50 mg 50 mg Oral Daily Sonido Lund PA-C [START ON 11/13/2016] magnesium hydroxide (MILK OF MAGNESIA) 400 mg/5 mL suspension 30 m L 30 mL Oral Nightly PRN Sonido Lund PA-C menthol (HALLS COUGH DROP) lozenge 1 lozenge 1 lozenge Buccal Q2H PRN Sonido addison PA-C metoclopramide (REGLAN) 5 mg/mL injection 10 mg 10 mg Intravenous Q4H PRN Sonido Lund PA-C metoclopramide (REGLAN) tablet 10 mg 10 mg Oral Q4H PRN Sonido Lund PA-C ondansetron (ZOFRAN ODT) disintegrating tablet 4 mg 4 mg Oral Q6H PRN Sonido addison PA-C ondansetron (ZOFRAN) injection 4 mg 4 mg Intravenous Q6H PRN Sonido Lund PA-C oxyCODONE (ROXICODONE) tablet 5-20 mg 5-20 mg Oral Q4H PRN Sonido Lund PA-C 15 mg at 11/12/16 0434 phenol (CHLORASEPTIC) spray 1-2 spray 1-2 spray Mouth/Throat Q3H PRN Sonido dimas PA-C polyethylene glycol (MIRALAX) powder 17 g 17 g Oral Daily PRN TIMMY Thompson prochlorperazine (COMPAZINE) tablet 10 mg 10 mg Oral Q6H PRN Sonido Lund PA-C senna (SENOKOT) tablet 8.6 mg 8.6 mg Oral BID Sonido Lund PA-C 8.6 mg at 2023 ALLERGIES: Allergies Allergen Reactions Codeine Other (See Comments) "makes my skin crawl" Morphine Swelling Joint swelling PHYSICAL EXAMINATION: Temp: [36.3 C (97.3 F)-37.1 C (98.8 F)] 37 C (98.6 F) Pulse: [92-118] 112 Resp: [12-24] 18 BP: (116-142)/(72-99) 135/82 Intake/Output Summary (Last 24 hours) at 11/12/16 0803 Last data filed at 11/12/16 0708 Gross per 24 hour Intake 7390 ml Output 2980 ml Net 4410 ml GENERAL: Lele Mustafa is in no acute distress with unlabored respirations. HEENT: HEAD/FACE: EYES: Normocephalic and atraumatic. There are no areas of recent trauma. Normal sclerae without icterus. CHEST: Clear. HEART: Regular. EXTREMITIES: No edema or swelling. SCD's BACK: The back incisions are dress and a drain is in place with expected output. NEUROLOGICAL EXAM: MENTAL STATUS: The patient is awake, alert, and oriented. He follows simple and complex commands. He speech is fluent, his comprehends speech well, and his repeats well. He has no apparent deficits with short or residential memory. MOTOR EXAM: Motor strength is RT DF 3/5 SENSORY EXAM: Sensory exam is stable 24 HOUR LABS: All Component Based Labs 11/12/16 0636 11/11/16202711/11/16 0936 Glucose, POC 323(H) 331(H) 280(H) ASSESSMENT: NEUROSURGICAL DIAGNOSES: S/p lumbar fusion HOSPITAL/GENERAL [...] lumbar fusion, Hospital day 1 - Neurologically RT foot weakness - Medically stable - Mobilize, PT/OT - SCD's - Working on BM/bowel function. Encouraged activity and medications to assist - Drain output is as expected. Continue drain - Disp: Likely home in 1-2 days ELECTRONICALLY SIGNED BY: Sonido Lund PA-C, 11/12/2016 8:03 documented in this encounter H&P Notes Kai Gillespie MD - 11/11/2016 11:[facility] AND PHYSICAL UPDATE Pt. Name/Age/: Lele Mustafa 56 y.o. 1960 Date of admission: 11/11/2016 The current H&P was reviewed. The patient was reexamined. Re-evaluation of the patient con firms the necessity for the scheduled procedure. No change has occurred in the patient s c ondition since the H&P was completed less than 30 days ago. I expect this patient will be hospitalized for post-operative care of post-operative care o f an IP-only procedure and expect the post-hospital plan to be determined once additional in formation is obtained. VERIFICATION OF CONSENT (PARQ) The patient was counseled regarding the procedure, its indications, risks, potential compli cations and alternatives. Any questions were answered. Consent was obtained. Electronically signed by: Kai Gillespie MD 11/11/2016 11:20 [facility] Sree Lawton PA-C - 10/20/2016 3:00 PM PDT Sree Cunha PA-C [address] [place] [address], [address] [place] [address] FAX: NEUROSURGERY HISTORY AND PHYSICAL EXAMINATION CHIEF COMPLAINT: Chief Complaint Patient presents with Pre-op Exam Back HISTORY OF PRESENT ILLNESS: The patient is in office today for his preop appointment. He i s scheduled for a L3-4 and L5-S1 fusion. He states his symptoms have been the same since his previous visit. He complains of back and bilateral leg pain. He has had no interval change s in the severity or character of his symptoms since his last visit. He denies any shortn ess of breath or chest pain. He denies any fever or chills.He has no open sores on his body and has not had any antibiotics recently. The patient is a 56 y.o. male with the complaint of back and bilateral leg pain symptoms th at began 1 year ago. The patient describes complications after back surgery one year ago. Si nce back surgery patient has had back and leg pain. The patient states that after the surger y complications he spent 6 weeks in a longterm. He describes hearing a popping noise in the back after getting up from bed. The symptoms [...] longer helping. PAST MEDICAL HISTORY: Past Medical History: Diagnosis Date Anxiety Depression Diabetes mellitus (HCC) Graves disease Hearing deficit HTN (hypertension) Lumbar facet joint pain Lumbar radiculopathy MRSA (methicillin resistant Staphylococcus aureus) Peroneal neuropathy RLS (restless legs syndrome) Sleep apnea Vision disorder deficit PAST SURGICAL HISTORY: Past Surgical History: Procedure Laterality Date CHOLECYSTECTOMY 1998 [facility] HIP ARTHROPLASTY 2000 Dr. Castañeda HIP ARTHROPLASTY 2003 Dr. Castañeda TOE AMPUTATION 2013 Dr. Barber TONSILLECTOMY VASECTOMY CURRENT MEDICATIONS: Current Outpatient Prescriptions [...] Known Problems Brother No Known Problems Child REVIEW OF SYSTEMS GENERALLY: No fever, no night sweats, no anemia, no fatigue, no recent profound weight ch anges. EYES: No eye problems, + use of corrective lenses, no eye injury, no double vision, no bli ndness. EARS, NOSE, AND THROAT: No changes in taste or smell, no hearing difficulty, no ringing in the ears, no ear drainage, no dizziness, no voice changes, no difficulty swallowing, + sign ificant snoring, + sleep apnea, no sinus problems, no major dental work. NEUROLOGICALLY: Please see the review of systems discussed above in the history of present illness. In addition, the patient has Numbness/pain lower left leg, a wake with numbness a nd pain, pain in back.. PSYCHIATRIC: No depression, no sleep disorders, no [...] painful or difficult urination, no incontinence. ENDOCRINE: +Diabetes, no thyroid disease, + osteopenia or osteoporosis, no breast drainage . SKIN: No breast lumps, no skin changes, no rashes, no itches. HEMATOLOGIC/LYMPHATIC: No enlarged lymph nodes, no easy or unusual bleeding, no personal h istory of cancer. RHEUMATOLOGIC: No joint arthritis, no rheumatoid arthritis. PHYSICAL EXAMINATION: Blood pressure (!) 156/102, pulse 81, height 1.93 m (6' 4"), weight 132 kg (291 lb). Body m ass index is 35.42 kg/m. GENERAL: Lele Mustafa is in no [...] no apparent deficits with short or terminal block assembler memory. CRANIAL NERVES: II: Acuity is intact. [...] Intrinsics 5 5 Ulnar Intrinsics 5 5 Track Dresser Strength 5 5 Hip Flexion 5 5 [...] ASSESSMENT: NEUROSURGICAL DIAGNOSES: Encounter Diagnoses Name Primary? Lumbar spinal stenosis Yes Osteoarthritis of spine with radiculopathy, lumbar region Lumbar foraminal stenosis GENERAL DIAGNOSES: Past Medical History: Diagnosis Date Anxiety Depression Diabetes mellitus (HCC) Graves disease Hearing deficit HTN (hypertension) Lumbar facet joint pain Lumbar radiculopathy MRSA (methicillin resistant Staphylococcus aureus) Peroneal neuropathy RLS (restless legs syndrome) Sleep apnea Vision disorder deficit PLAN: Lele Mustafa presented today, and it was a pleasure seeing this patient and asses sing his neurologic problems. The patient has severe foraminal stenosis and degenerative disease in his lumbar spine. Thi s is likely a contributor to his symptoms. . The patient has progressive symptoms despite n on-operative measures. We discussed the risks, alternatives, and benefits to surgical intervention with Mr. Yung machado in clinic. These risks included but were [...] mobility. For multiple (more than 1 level) fusions, I am also prescribing a bone growth stimulator po stoperatively. This is to improve the probability and rate of fusion. He would like to proceed with his scheduled procedure. ELECTRONICALLY SIGNED BY: Kai Gillespie M.D., 08/26/2016 17:35 documented in th is encounter Miscellaneous Notes Plan of Scott - Nelly Young - 11/15/2016 4:34 PM PDTSpoke with [facility] regarding the referral which was faxed yesterday. [facility] is willing to accept this patient to day. Faxed Orders, PASRR, RX and Discharge Summary over to [facility]. Received the Communication r esult report; result ok. SNF packet complete. Met with [facility] regarding transportation. Fredis stated, his family requested that [facility] arrang e for transportation, that they don't feel comfortable transporting. This CM spoke with [facility] about arranging transportation. [facility] stated, the ride will be here at 1230. 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 Fredis requested a Shower prior to leaving. This CM reported this to JOANIE Ortiz. Electronically signed by: Nelly Young 11/15/2016 16:38 eICU Note - Sonia Velasco RN - 11/15/2016 1:10 PM PDTReviewed discharge instructions, follow up appts. [facility]. No further questions. Discharged via with transport person. lan of Care - Vivian Doan OT - 10/24 12:36 PM PDT Problem: Patient Care Overview (Adult) Goal: Care Team Goals & Evaluation PROBLEM-RELATED GOALS: 1. Fredis will have his pain controlled at or below 4/10 through 11/15/16. 2. Fredis will have no falls or injury through 11/15/16. 3. Fredis will have no s/s of infections through 11/15/16 4. Fredis will ambulate with FWW and LSO C-Brace with minimal assistance by 11/15/16 5. Fredis's CMS will be at baseline or improved by 11/15/16 6. Fredis will tolerate a general diet without n/v by 11/15/16 7. Fredis will progress to modified indpt functional mobility and gait with FWW x 150' by 11/17. STRATEGY TO ACHIEVE GOALS: - Monitor pain level and medicate as ordered to maintain desired level. - Teach safe mobility techniques, and to call appropriately. - Medicate as ordered prophylactic antibiotics and teach infection control. - Encourage activity and muscle strengthening, get patient OOB with nursing and then encour age participation in PT and OT - Perform neurovascular checks as ordered, alert MD of any compromise -Advance diet as tolerated per RN discretion, Saline lock patient when taking fluids well -PT intervention and pt/ education and postop training. Outcome: Improving Occupational Therapy Plan of Care Treatment Note Summary: Pt seen for light ADls, functional mobility. He has just finished lunch in prepa ration for transfer for SNF in [place]. 1-person assist this afternoon. Demonstrates red uced strength in RLE but has reciprocal gait, decreased hip extension and knee extension. N o knee buckling. Unsteady while standing @ toilet to manage clothing but no LOB. Will bene fit from continued rehab intervention @ next level of care. PRogressing towards goals. Occupational Therapy Discharge Recommendations are: Recommended discharge disposition: senior living facility Post discharge occupational therapy recommendation: pt is motivated participant, will bene fit from structured setting Equipment Recommendations: none (Has all equipment from previous back surgeries. ) Planned Interventions:ADL retraining, IADL retraining, bed mobility training, strengthening , transfer training Recommended Frequency: Patient Status/Goals: Reflects last filed data and may be from multiple contributors. ADLs Unsteady but no LOB. Cautionary cues to be observant of his balance while managing clothin g. Toileting, Level of [place]: minimal assist (75% patient effort), verbal cues required Assistive Device: grab bar, bedside commode Toileting Assess/Train, Position: sitting, supported standing Toileting Assess/Train, Impairments: strength decreased, impaired balance, postural control impaired Transfers Sit-Stand, Level of [place]: minimal assist (75% patient effort), verbal cues required Stand-Sit, Level of [place]: minimal assist (75% patient effort) [id number], Assistive Device: 2 wheeled walker (FWW) Toilet, Level of [place]: contact guard assist, verbal cues required Toilet, Assistive Device: 2 wheeled walker (FWW), grab bars Safety Issues: balance decreased during turns, step length decreased, weight-shifting abili ty decreased Impairments: strength decreased, ROM decreased, pain, impaired balance OT Goal Review Date Flowsheet Row Most Recent Value STG Review Date 11/19/16 at 11/12/2016 1407 LB Dressing Goal Flowsheet Row Most Recent Value STG Status continued at 11/15/2016 1234 STG [place] Level modified independent at 11/12/2016 1407 Toilet Transfer Goal Flowsheet Row Most Recent Value STG Status progressing at 11/15/2016 1234 STG [place] Level modified independent at 11/12/2016 1407 Electronically signed by: Vivian Doan OT, 11/15/2016 12:35 NF Transfer - Anders tolentino, Sonido Manley PA-C - 11/15/2016 7:34 AM PDT [facility] FACILITY TRANSFER ORDERS Patient Name: Lele Mustafa Patient : 1960 Gender: male Date of Admission: 11/11/2016 Date of Discharge: 11/15/2016 Admitting Provider: Kai Gillespie MD Discharging Provider: Sonido Lund PA-C Consultants: PT /OT PCP: Paulo Rothman [facility] transferring to: [facility] Provider after transfer: Jose Miguel CODE STATUS: [x] Attempt CPR [] Do not resuscitate If patient is pulseless and not breathing, RN/ELECTROLYSIS NEEDLE OPERATOR may pronounce . Advanced Directives included: [] POLST [] MOLST/MOST [] Comfort One ([place]) [] Other: Code status discussed with: [x] Patient [] Spouse/Family [] DPOA [] Other: Name of person discussed with: Date discussed: Isolation/Infection Precautions: [x] None Height: Height: 193 cm (6' 4") Wt Readings from Last 3 Encounters: 11/15/16 125.4 kg (276 lb 7.3 oz) 10/20/16 132 kg (291 lb) 08/26/16 128.4 kg (283 lb) Admitting Diagnosis: Patient Active Problem List Diagnosis HTN (hypertension) Diabetes mellitus Lumbar facet joint pain Lumbar radiculopathy MRSA (methicillin resistant Staphylococcus aureus) Obesity (BMI 30-39.9) Anxiety Depression Graves disease Diabetes type 2, controlled Obstructive sleep apnea syndrome Allergies Allergen Reactions Codeine Other (See Comments) "makes my skin crawl" Morphine Swelling Joint swelling There is no immunization history on file for this patient. Diet: [x] As tolerated MANAGER SUPPLY CHAIN PLANNING may upgrade or downgrade diet as condition Indicates. [] RN may downgrade diet as indicated. Type: [x] Continue current diet of: Diet and Supplements Diet Diet consistent carb; Effective Now Number of Occurrences: Until Specified Order Questions: Type Diet consistent carb [] Other: Consistency/Precautions: [] Whole [] Thin Liquids [] Cut-up [] College Thick [] Advanced Chopped [] Honey Thickened [] Chopped [] Advanced Ground [] 1:1 feedings [] Ground/Pureed [] Other: Tube Feedings: [] PEG [] GT [] JT [] NGT [] Formula type: (Transplant Rn may change/substitute if indicated). [] Continuous Rate: ml/hr, infusing hrs/day [] Bolus feeds: ml every hours [] Additional water: ml every hours Respiratory: [] BiPAP at night & PRN SOB. Settings: O2 L bleed Dx: [] CPAP at night & PRN SOB. Settings: O2 L bleed Dx: [] Suction & Pulmonary toilet PRN secretion/sputum management. Dx: [] Incentive Spirometer QID and PRN while awake. Duration: ___4 weeks Dx: [] Tracheostomy management per protocol [] Oxygen: Lpm NC/Trach [] Continuous [] NOC [] Humidified [] prn SaO2 < % [] prn SOB/dyspnea Dx: [] Other: Dx: Bladder: [] Follow nursing protocol for recent salazar removal [] Salazar catheter managment per nursing protocol - Indication: [] Permanent [] Temporary [] Remove salazar catheter on and follow nursing protocol for recent salazar remova l. [] Straight catheter every hour(s) [...] limb(s)): [x] PT Evaluation & Management for: Strength and mobility____ [x] OT Evaluation & Management for: Strength and mobility [] MANAGER SUPPLY CHAIN PLANNING Evaluation &Management for: [] Other: Wound/Skin Care: [] Follow current recommendations of the wound team for treatment. [x] Follow standard nursing protocols for wound care. [] Wound Vac management per nursing protocol. Indication: Location: Settings: Change frequency: & prn [] Other: Labs/Imaging: [] PT/INR: Frequency: Dx: Goal INR: Duration of therapy: [] Fingerstick glucose checks: Dx: DM [] Other: Test/Study Needed/Frequency Diagnosis/Indication Follow up appointments and consultations: Yam in 4 weeks Date/Time: Dr. Date/Time I have advised this patient that [...] New Medications Details Order Next Dose Due lactulose 10 g/15 mL solution Take 30 mLs by mouth 2 times daily. By: Sonido Lund PA-C Quant: 240 mL oxyCODONE 5 mg tablet Take 1-4 tablets by mouth every 4 hours as needed for Pain. aka: ROXICODONE By: Sonido Lund PA-C Quant: 120 tablet Changed Medications Details Order Next Dose Due cyclobenzaprine 10 mg tablet Take 1 tablet by mouth every 6 hours as needed for Muscle spasms. What changed: reasons to take this aka: FLEXERIL By: Soindo Lund PA-C Quant: 90 tablet gabapentin 300 mg capsule Take 2 capsules by mouth 3 times daily. What changed: how much to take aka: NEURONTIN By: Sonido Lund PA-C Quant: 180 capsule LORazepam 1 mg tablet Take 0.5-1 tablets by mouth Twice daily as needed for Anxiety. What changed: Another medication with the same name was added. Make sure you understand ho w and when to take each. aka: ATIVAN LORazepam 0.5 mg tablet Take 1-2 tablets by mouth Twice daily as needed for Anxiety. What changed: You were already taking a medication with the same name, and this prescripti on was added. Make sure you understand how and when to take each. aka: ATIVAN By: Sonido Lund PA-C Quant: 30 tablet Unchanged Medications Details Order Next Dose Due aspirin 81 mg EC tablet Take 81 mg by mouth Daily. cholecalciferol 2000 units Tabs Take 2,000 Units by mouth Daily. aka: VITAMIN D-[address] capsule Take 60 mg by mouth Daily. aka: CYMBALTA insulin glulisine 100 units/mL injection Inject 20 Units under the skin 3 times daily (with meals). aka: APIDRA irbesartan-hydrochlorothiazide 150-12.5 MG per tablet Take 1 tablet by mouth Daily. aka: AVALIDE LEVEMIR 100 units/mL injection (vial) Generic drug: [...] HYDROcodone-acetaminophen 10-325 mg per tablet aka: NORCO ibuprofen 600 MG tablet aka: ADVIL,MOTRIN methocarbamol 750 mg tablet aka: ROBAXIN traMADol 50 mg tablet aka: Sonido MOYER PA-C, certify that post hospital senior living care is medically nece ssary on a continuing basis for any of the conditions for which he/she received care during this hospitalization. Check one: [x] Skilled [] Intermediate Additional Orders/Instructions: Physician's signature: 11/15/2016 7:34 [facility] USE ONLY: [] Admitting orders verbally reviewed with Admitting Physician, modified where appropriate, and approved. Verbal Order from Date: Time: _ RN name: RN signature: [] Admitting orders reviewed, modified where appropriate, and approved. Physician's signature: Eloy Lund PA-C 11/15/16 Date: Time: lan of Care - Liz Ventura RN - 11/15/2016 5:29 AM PDTProblem: Patient Care Overview (Adult) Goal: Care Team Goals & Evaluation PROBLEM-RELATED GOALS: 1. Fredis will have his pain controlled at or below 4/10 through 11/15/16. 2. Fredis will have no falls or injury through 11/15/16. 3. Fredis will have no s/s of infections through 11/15/16 4. Fredis will ambulate with FWW and LSO C-Brace with minimal assistance by 11/15/16 5. Fredis's CMS will be at baseline or improved by 11/15/16 6. Fredis will tolerate a general diet without n/v by 11/15/16 7. Fredis will progress to modified indpt functional mobility and gait with FWW x 150' by 11/17. STRATEGY TO ACHIEVE GOALS: - Monitor pain level and medicate as ordered to maintain desired level. - Teach safe mobility techniques, and to call appropriately. - Medicate as ordered prophylactic antibiotics and teach infection control. - Encourage activity and muscle strengthening, get patient OOB with nursing and then encour age participation in PT and OT - Perform neurovascular checks as ordered, alert MD of any compromise -Advance diet as tolerated per RN discretion, Saline lock patient when taking fluids well -PT intervention and pt/ education and postop training. Outcome: Improving Goal Evaluation: Patient still having significant pain. C/o pain to low back but also burning pain in left foot. Oxycodone 20 mg and Flexeril given, but patient did require one dose of IV Dilaudid du ring the night for the foot pain. Spiked temp of 100.4 last night, PEP and IS were performed and temp is down to 97.7 this morning. MS are 4/5 to BLE but weaker on right. C/o chronic n umbness/tingling to BLE, no changes. Ambulating with FWW and 1-person assist. LSO C-Brace. B andaids to back WNL, no evidence of hematoma. He did have a BM yesterday. Plan is for [facility] y in [place] today. Electronically signed by: LIZ REAVES RN 11/15/2016 5:29 lan of Care - Virgen Ritchie RN - 11/14/2016 7:58 PM PDTProblem: Patient Care Overview (Adult) Goal: Care Team Goals & Evaluation PROBLEM-RELATED GOALS: 1. Fredis will have his pain controlled at or below 4/10 through 11/14/16. 2. Fredis will have no falls or injury through 11/14/16. 3. Fredis will have no s/s of infections through 11/14/16 4. Fredis will ambulate with FWW and LSO C-Brace with minimal assistance by 11/13/16 5. Fredis's CMS will be at baseline or improved by 11/13/16 6. Fredis will tolerate a general diet without n/v by 11/12/16 7. Fredis will progress to modified indpt functional mobility and gait with FWW x 150' by 11/17. STRATEGY TO ACHIEVE GOALS: - Monitor pain level and medicate as ordered to maintain desired level. - Teach safe mobility techniques, and to call appropriately. - Medicate as ordered prophylactic antibiotics and teach infection control. - Encourage activity and muscle strengthening, get patient OOB with nursing and then encour age participation in PT and OT - Perform neurovascular checks as ordered, alert MD of any compromise -Advance diet as tolerated per RN discretion, Saline lock patient when taking fluids well -PT intervention and pt/ education and postop training. Outcome: Improving Goal Evaluation: Fredis's pain was rated at a 7-8/10 throughout the day except when given dilaudid after thera py he stated he had no pain. He has had no falls or injury, or s/s of infection. He is amb ulating in his room as SBA and in the cho with therapy. He needs reminders to follow his p recautions when in bed. His CMS is moderately good, except the RLE weakness, Dorsi was weak but plantar was strong, he has numbness and tingling to both LE's. His LLE was good. He i s tolerating a consistent carb diet with no n/v. He had a BM today with the help of bowel m eds, his BT were good, he is voiding well. The dressings on his back were CDI with no hemato ma. lan of Care - David Malave, PER DIEM PHYSICAL THERAPIST - 11/14/2016 2:26 PM PDTFormatting of this note might be different from t he original. Problem: Patient Care Overview (Adult) Goal: Care Team Goals & Evaluation PROBLEM-RELATED GOALS: 1. Fredis will have his pain controlled at or below 4/10 through 11/14/16. 2. Fredis will have no falls or injury through 11/14/16. 3. Fredis will have no s/s of infections through 11/14/16 4. Fredis will ambulate with FWW and LSO C-Brace with minimal assistance by 11/13/16 5. Fredis's CMS will be at baseline or improved by 11/13/16 6. Fredis will tolerate a general diet without n/v by 11/12/16 7. Fredis will progress to modified indpt functional mobility and gait with FWW x 150' by 11/17. STRATEGY TO ACHIEVE GOALS: - Monitor pain level and medicate as ordered to maintain desired level. - Teach safe mobility techniques, and to call appropriately. - Medicate as ordered prophylactic antibiotics and teach infection control. - Encourage activity and muscle strengthening, get patient OOB with nursing and then encour age participation in PT and OT - Perform neurovascular checks as ordered, alert MD of any compromise -Advance diet as tolerated per RN discretion, Saline lock patient when taking fluids well -PT intervention and pt/ education and postop training. Outcome: Unchanged Physical Therapy Plan of Care Treatment Note Summary: Pt supine on arrival agreeable to PT. Pt able to verbalize all C brace precautions however had poor adherence to them during session. Cueing throughout to minimize bending an d twisting. Pt very deconditioned. For pt to be able to stand without physical assist bed suarez d to be raise significantly. Pt became diaphoretic during gait and c/o dizziness. Pt assiste d back to chair in room. RN aware of pt status. Pt reports feeling better after sitting down . See below for session details and assist level. Pt reports that his has Alzheimers an d is unable to provide the assistance he will need. Pt is at high fall risk and would benefi t from short stay at SNF to address deficits to increase safety. Physical Therapy Discharge Recommendations are: Recommended discharge disposition: senior living facility, home with assist Post discharge physical therapy recommendation: will benefit from structured setting Equipment Recommendations: 2 wheeled walker (FWW) Planned Interventions: bed mobility training, gait training, orthotic fitting/training, pa tient/family education, postural re-education, transfer training, stair training Recommended Frequency: daily Patient Status/Goals: Reflects last filed data and may be from multiple contributors. Gait pt c/o of dizzinessa and became diaphoretic; reports symptoms deminished once he was seated Level of [place]: contact guard assist, verbal cues required Assistive Device: 2 wheeled walker (FWW) Distance (feet): 10, 30 Transfers elevated bed; pt come to partical stand and lunges for walker; cues to come to complete sta nd and reach for walker to increase safety Bed-Chair, Level of [place]: minimal assist (75% patient effort), 2 person assist requ ired Chair-Bed, Level of [place]: not tested [id number], Assistive Device: 2 wheeled walker (FWW) Sit-Stand, Level of [place]: minimal assist (75% patient effort) Stand-Sit, Level of [place]: minimal assist (75% patient effort) Zhi-Avbim-Fvi, Assistive Device: 2 wheeled walker (FWW) Safety Issues: balance decreased during turns, step length decreased Impairments: strength decreased, ROM decreased, pain Bed Mobility pt unable to come move from sidelying to sitting on his own; had to raise HOB past 60 degre es before he could get up without physical assist Assistive Device: bed rails, HOB elevated Supine to Sit, Level of [place]: moderate assist (50% patient effort) (pt had to eleva te HOB significantly) Sit to Supine, Level of [place]: (NT) Safety Issues: decreased use of legs for bridging/pushing Impairments: strength decreased, ROM decreased, pain, coordination impaired PT Goal Review Date Flowsheet Row Most Recent Value STG Review Date 11/17/16 at 11/12/2016 0933 Hcqxbb-Tmu-Fwmsoc Goal Flowsheet Row Most Recent Value STG Status progressing at 11/14/2016 1443 STG [place] Level independent at 11/12/2016 0933 Nfb-Qpjpx-Xjv Goal Flowsheet Row Most Recent Value STG Status progressing at 11/14/2016 1443 STG [place] Level modified independent at 11/12/2016 0933 STG Assistive Device 2 wheeled walker (FWW) at 11/12/2016 0933 Gait Goal Flowsheet Row Most Recent Value STG Status progressing at 11/14/2016 1443 STG [place] Level modified independent at 11/12/2016 0933 STG Assistive Device 2 wheeled walker (FWW) at 11/12/2016 0933 STG Distance (feet) 150 at 11/12/2016 0933 Stair Goal Flowsheet Row Most Recent Value STG Status continued at 11/14/2016 1443 STG [place] Level contact guard assist at 11/12/2016 0933 STG Assistive Device 2 rails at 11/12/2016 0933 Additional Goal #1 PT Flowsheet Row Most Recent Value STG Status progressing at 11/14/2016 1443 STG Pt able to verbalize and demonstrate compliance with grade C precautions, pt/ unde rstand don/doffing LSO in bed at 11/12/2016 0933 Electronically signed by: David De Luna PTA, 11/14/2016 14:46 lan of Care - Negra Skinner, OT - 11/14/2016 9:02 AM PDTFormatting of this note might be different from piper archuleta original. Problem: Patient Care Overview (Adult) Goal: Care Team Goals & Evaluation PROBLEM-RELATED GOALS: 1. Fredis will have his pain controlled at or below 4/10 through 11/14/16. 2. Fredis will have no falls or injury through 11/14/16. 3. Fredis will have no s/s of infections through 11/14/16 4. Fredis will ambulate with FWW and LSO C-Brace with minimal assistance by 11/13/16 5. Fredis's CMS will be at baseline or improved by 11/13/16 6. Fredis will tolerate a general diet without n/v by 11/12/16 7. Fredis will progress to modified indpt functional mobility and gait with FWW x 150' by 11/17. STRATEGY TO ACHIEVE GOALS: - Monitor pain level and medicate as ordered to maintain desired level. - Teach safe mobility techniques, and to call appropriately. - Medicate as ordered prophylactic antibiotics and teach infection control. - Encourage activity and muscle strengthening, get patient OOB with nursing and then encour age participation in PT and OT - Perform neurovascular checks as ordered, alert MD of any compromise -Advance diet as tolerated per RN discretion, Saline lock patient when taking fluids well -PT intervention and pt/ education and postop training. Occupational Therapy Plan of Care Treatment Note Summary: Fredis reports he is in lots of pain, legs feel week though motivated to work with t herapy. Performed bed mobility, transfer to toilet and donning socks see below for status. S am requried use of bed features (raising head of bed up once in sidelying) to move from supi ne to sit, at home he does not have a hospital bed and will have to perform bed mobility fro m flat bed. Fredis ambulated to the bathroom and back approx 20 feet with close CGA due to righ t leg weakness. he had no LOB though moved slowly with right leg adducting with each step. h e did requrie less assist for sit-stand today from both raised bed and OTC. Due to continue d need of assist for bed mobility and transfers its recomened at this time that he has a sta y at a SNF to futher progress strength and safety for ADLs. Occupational Therapy Discharge Recommendations are: Recommended discharge disposition: senior living facility Post discharge occupational therapy recommendation: pt is motivated participant, will bene fit from structured setting Equipment Recommendations: none (Has all equipment from previous back surgeries. ) Planned Interventions:ADL retraining, IADL retraining, bed mobility training, strengthening , transfer training Recommended Frequency: Patient Status/Goals: Reflects last filed data and may be from multiple contributors. ADLs used sock aid to shelly socks, requried assist from therapist to pull fully on. LB Dressing, Level of [place]: minimal assist (75% patient effort) Assistive Device: sock-aid LB Dressing Assess/Train, Position: sitting Bed Mobility used bed features once sidelying to move into sitting. Assistive Device: bed rails, HOB elevated Supine to Sit, Level of [place]: stand by assist, verbal cues required Sit to Supine, Level of [place]: not tested Safety Issues: decreased use of legs for bridging/pushing Impairments: strength decreased, ROM decreased, pain, coordination impaired Transfers bed elevated. Sit-Stand, Level of [place]: minimal assist (75% patient effort) Stand-Sit, Level of [place]: minimal assist (75% patient effort) Pvo-Ogjzl-Wfs, Assistive Device: 2 wheeled walker (FWW) Toilet, Level of [place]: contact guard assist Toilet, Assistive Device: 2 wheeled walker (FWW) Safety Issues: balance decreased during turns, step length decreased Impairments: strength decreased, ROM decreased, pain OT Goal Review Date Flowsheet Row Most Recent Value STG Review Date 11/19/16 at 11/12/2016 1407 LB Dressing Goal Flowsheet Row Most Recent Value STG Status continued, progressing at 11/14/2016 0950 STG [place] Level modified independent at 11/12/2016 1407 Toilet Transfer Goal Flowsheet Row Most Recent Value STG Status continued, progressing at 11/14/2016 0950 STG [place] Level modified independent at 11/12/2016 1407 Electronically signed by: Negra Villa OT, 11/14/2016 9:51 lan of Care - Liz Xiao RN - 11/14/2016 3:48 AM PDTProblem: Patient Care Overview (Adult) Goal: Care Team Goals & Evaluation PROBLEM-RELATED GOALS: 1. Fredis will have his pain controlled at or below 4/10 through 11/14/16. 2. Fredis will have no falls or injury through 11/14/16. 3. Fredis will have no s/s of infections through 11/14/16 4. Fredis will ambulate with FWW and LSO C-Brace with minimal assistance by 11/13/16 5. Fredis's CMS will be at baseline or improved by 11/13/16 6. Fredis will tolerate a general diet without n/v by 11/12/16 7. Fredis will progress to modified indpt functional mobility and gait with FWW x 150' by 11/17. STRATEGY TO ACHIEVE GOALS: - Monitor pain level and medicate as ordered to maintain desired level. - Teach safe mobility techniques, and to call appropriately. - Medicate as ordered prophylactic antibiotics and teach infection control. - Encourage activity and muscle strengthening, get patient OOB with nursing and then encour age participation in PT and OT - Perform neurovascular checks as ordered, alert MD of any compromise -Advance diet as tolerated per RN discretion, Saline lock patient when taking fluids well -PT intervention and pt/ education and postop training. Outcome: Improving Goal Evaluation: Patient is POD#3 from lumbar fusion. Still c/o severe levels of pain 7-10/10, but appearin g comfortable and conversing pleasantly with this RN. He reports burning pain in left foot. He does have some chronic numbness to BLE but he does have sensation. Oxycodone and Flexeril given for pain overnight. ELMER drain removed last night per orders, no complications. MS are 4/5 to BLE but he is weaker on the RLE and mobilizing slowly. LSO C-Brace in place at all ti mes. Bandaids CDI. Afebrile, voiding adequately. Patient wearing CPAP while sleeping. No po st-op BM yet. He is passing gas, colace, senna and lactulose given last night. Electronicall y signed by: LIZ REAVES RN 11/14/2016 3:48 lan of Care - Josi Vela RN - 11/13/2016 4:19 PM PDTProblem: Patient Care Overview (Adult) Goal: Care Team Goals & Evaluation PROBLEM-RELATED GOALS: 1. Fredis will have his pain controlled at or below 4/10 through 11/14/16. 2. Fredis will have no falls or injury through 11/14/16. 3. Fredis will have no s/s of infections through 11/14/16 4. Fredis will ambulate with FWW and LSO C-Brace with minimal assistance by 11/13/16 5. Fredis's CMS will be at baseline or improved by 11/13/16 6. Fredis will tolerate a general diet without n/v by 11/12/16 7. Fredis will progress to modified indpt functional mobility and gait with FWW x 150' by 11/17. STRATEGY TO ACHIEVE GOALS: - Monitor pain level and medicate as ordered to maintain desired level. - Teach safe mobility techniques, and to call appropriately. - Medicate as ordered prophylactic antibiotics and teach infection control. - Encourage activity and muscle strengthening, get patient OOB with nursing and then encour age participation in PT and OT - Perform neurovascular checks as ordered, alert MD of any compromise -Advance diet as tolerated per RN discretion, Saline lock patient when taking fluids well -PT intervention and pt/ education and postop training. Outcome: Improving Goal Evaluation: Patient is alert and oriented. Continues to complain of incisional pain, but is improving. Pain is being controlled with 20 mg of oxycodone, flexeril, and dilaudid. Muscle strengths 4/5. ELMER drain in place. IV saline locked. C Brace. Room air. Call light in place, bed alarm on. lan of Care - Vadim gomez, Jammie Billings, PER DIEM PHYSICAL THERAPIST - 11/13/2016 2:16 PM PDTFormatting of this note might be different from t he original. Problem: Patient Care Overview (Adult) Goal: Care Team Goals & Evaluation PROBLEM-RELATED GOALS: 1. Fredis will have his pain controlled at or below 4/10 through 11/14/16. 2. Fredis will have no falls or injury through 11/14/16. 3. Fredis will have no s/s of infections through 11/14/16 4. Fredis will ambulate with FWW and LSO C-Brace with minimal assistance by 11/13/16 5. Fredis's CMS will be at baseline or improved by 11/13/16 6. Fredis will tolerate a general diet without n/v by 11/12/16 7. Fredis will progress to modified indpt functional mobility and gait with FWW x 150' by 11/17. STRATEGY TO ACHIEVE GOALS: - Monitor pain level and medicate as ordered to maintain desired level. - Teach safe mobility techniques, and to call appropriately. - Medicate as ordered prophylactic antibiotics and teach infection control. - Encourage activity and muscle strengthening, get patient OOB with nursing and then encour age participation in PT and OT - Perform neurovascular checks as ordered, alert MD of any compromise -Advance diet as tolerated per RN discretion, Saline lock patient when taking fluids well -PT intervention and pt/ education and postop training. Outcome: Improving Physical Therapy Plan of Care Treatment Note Summary: Pt recieved in supine. Close SBA with set up and verbal cues supine/sit. min A sit/stand. Amb 20ft with FWW close CGA. Unsteady gait but no LOB. Pt has a slow yaa using UE to really hold him up. Pain in the tailbone. REturn to supine wiht SBA and verbal cues. Bed not woking let nursing know. Pt has a with alzheimers and is unable at th is time to do all his own care. An alternative d/c may be appropriate or in home acute care surgeon s. Physical Therapy Discharge Recommendations are: Recommended discharge disposition: senior living facility, home with assist Post discharge physical therapy recommendation: will benefit from structured setting Equipment Recommendations: 2 wheeled walker (FWW) Planned Interventions: bed mobility training, gait training, orthotic fitting/training, pa tient/family education, postural re-education, transfer training, stair training Recommended Frequency: daily Patient Status/Goals: Reflects last filed data and may be from multiple contributors. Gait RLE weakness, conitnued heavy reliance on walker. Movement continues to be painful and lab orious today. Level of [place]: contact guard assist Assistive Device: 2 wheeled walker (FWW) Distance (feet): 20 Transfers Pt is 6'4", height of bed elevated to ease transition Sit-Stand, Level of [place]: minimal assist (75% patient effort) Stand-Sit, Level of [place]: minimal assist (75% patient effort) [id number]-Avdbg-Wiy, Assistive Device: 2 wheeled walker (FWW) Safety Issues: balance decreased during turns, step length decreased Impairments: strength decreased, ROM decreased, pain Bed Mobility Pt struggled with logroll, aware of technique, but needing physical and mechanical assist f or rising to sitting position and for bilateral LE's BTB Assistive Device: bed rails, HOB elevated Supine to Sit, Level of [place]: stand by assist, verbal cues required Sit to Supine, Level of [place]: stand by assist, verbal cues required Safety Issues: decreased use of legs for bridging/pushing Impairments: strength decreased, ROM decreased, pain, coordination impaired ROM L LE ROM: WFL R LE ROM: painful/tightness lacking active full knee extenson x 30 deg Strength L LE Strength: grossly 5/5 R LE Strength: grossly 4/5 PT Goal Review Date Flowsheet Row Most Recent Value STG Review Date 11/17/16 at 11/12/2016 0933 Igwokr-Snm-[id number] Goal Flowsheet Row Most Recent Value STG Status progressing at 11/13/2016 1407 STG [place] Level independent at 11/12/2016 0933 Bai-Hdfqt-Wev Goal Flowsheet Row Most Recent Value STG Status progressing at 11/13/2016 1407 STG [place] Level modified independent at 11/12/2016 0933 STG Assistive Device 2 wheeled walker (FWW) at 11/12/2016 0933 Gait Goal Flowsheet Row Most Recent Value STG Status progressing at 11/13/2016 1407 STG [place] Level modified independent at 11/12/2016 0933 STG Assistive Device 2 wheeled walker (FWW) at 11/12/2016 0933 STG Distance (feet) 150 at 11/12/2016 0933 Stair Goal Flowsheet Row Most Recent Value STG Status continued at 11/13/2016 1407 STG [place] Level contact guard assist at 11/12/2016 0933 STG Assistive Device 2 rails at 11/12/2016 0933 Additional Goal #1 PT Flowsheet Row Most Recent Value STG Status continued at 11/13/2016 1407 STG Pt able to verbalize and demonstrate compliance with grade C precautions, pt/ unde rstand don/doffing LSO in bed at 11/12/2016 0933 Electronically signed by: Jammie Correa PTA, 11/13/2016 14:15 Goal Evaluation: lan of Care - Negra Kowalski, OT - 11/13/2016 12:34 PM PDTFormatting of this note might be different from t he original. Problem: Patient Care Overview (Adult) Goal: Care Team Goals & Evaluation PROBLEM-RELATED GOALS: 1. Fredis will have his pain controlled at or below 4/10 through 11/14/16. 2. Fredis will have no falls or injury through 11/14/16. 3. Fredis will have no s/s of infections through 11/14/16 4. Fredis will ambulate with FWW and LSO C-Brace with minimal assistance by 11/13/16 5. Fredis's CMS will be at baseline or improved by 11/13/16 6. Fredis will tolerate a general diet without n/v by 11/12/16 7. Fredis will progress to modified indpt functional mobility and gait with FWW x 150' by 11/17. STRATEGY TO ACHIEVE GOALS: - Monitor pain level and medicate as ordered to maintain desired level. - Teach safe mobility techniques, and to call appropriately. - Medicate as ordered prophylactic antibiotics and teach infection control. - Encourage activity and muscle strengthening, get patient OOB with nursing and then encour age participation in PT and OT - Perform neurovascular checks as ordered, alert MD of any compromise -Advance diet as tolerated per RN discretion, Saline lock patient when taking fluids well -PT intervention and pt/ education and postop training. Occupational Therapy Plan of Care Treatment Note Summary: States he is in a lot of pain, reports bed not functioning correctly unable to ge t it fully flat, engeneering contacted and present in room to resolve this issue upon OT dep arture. Bed mobility, transferred to chair, completed LB dressign using reaching and verbal cues, Fredis requries 2 P assist for transfers at this time due to safety and increased pain. h e will benefit from continued OT to progress functional mobility. Occupational Therapy Discharge Recommendations are: Recommended discharge disposition: home with assist Post discharge occupational therapy recommendation: pt is motivated participant, home heal th Equipment Recommendations: none (Has all equipment from previous back surgeries. ) Planned Interventions:ADL retraining, IADL retraining, bed mobility training, strengthening , transfer training Recommended Frequency: Patient Status/Goals: Reflects last filed data and may be from multiple contributors. ADLs Will address further following tx session. Limited this session d/t diaphoresis and report of extreme pain. Consultant In Ergonomics And Safety to shelly/doff shorts LB Dressing, Level of [place]: contact guard assist, verbal cues required, set up requ ired Assistive Device: field counsel LB Dressing Assess/Train, Position: sitting Bed Mobility Needs physcial assist for log roll, utilized bed features to ease transition. Assistive Device: bed rails, HOB elevated Supine to Sit, Level of [place]: set up required, verbal cues required, tactile cues r equired, moderate assist (50% patient effort) Sit to Supine, Level of [place]: moderate assist (50% patient effort), verbal cues req uired, tactile cues required, 2 person assist required Safety Issues: decreased use of legs for bridging/pushing Impairments: strength decreased, motor control impaired, coordination impaired, impaired ba sarika, pain Transfers bed elevated piror to standing. Bed-Chair, Level of [place]: minimal assist (75% patient effort), 2 person assist requ ired Chair-Bed, Level of [place]: not tested Syx-Mkwot-Avn, Assistive Device: 2 wheeled walker (FWW) OT Goal Review Date Flowsheet Row Most Recent Value STG Review Date 11/19/16 at 11/12/2016 1407 LB Dressing Goal Flowsheet Row Most Recent Value STG Status continued at 11/13/2016 1233 STG [place] Level modified independent at 11/12/2016 1407 Toilet Transfer Goal Flowsheet Row Most Recent Value STG Status continued at 11/13/2016 1233 STG [place] Level modified independent at 11/12/2016 1407 Electronically signed by: Negra Villa OT, 11/13/2016 12:34 lan of Care - Liz Xiao RN - 11/13/2016 6:18 AM PDTProblem: Patient Care Overview (Adult) Goal: Care Team Goals & Evaluation PROBLEM-RELATED GOALS: 1. Fredis will have his pain controlled at or below 4/10 through 11/14/16. 2. Fredis will have no falls or injury through 11/14/16. 3. Fredis will have no s/s of infections through 11/14/16 4. Fredis will ambulate with FWW and LSO C-Brace with minimal assistance by 11/13/16 5. Fredis's CMS will be at baseline or improved by 11/13/16 6. Fredis will tolerate a general diet without n/v by 11/12/16 7. Fredis will progress to modified indpt functional mobility and gait with FWW x 150' by 11/17. STRATEGY TO ACHIEVE GOALS: - Monitor pain level and medicate as ordered to maintain desired level. - Teach safe mobility techniques, and to call appropriately. - Medicate as ordered prophylactic antibiotics and teach infection control. - Encourage activity and muscle strengthening, get patient OOB with nursing and then encour age participation in PT and OT - Perform neurovascular checks as ordered, alert MD of any compromise -Advance diet as tolerated per RN discretion, Saline lock patient when taking fluids well -PT intervention and pt/ education and postop training. Outcome: Improving Goal Evaluation: Patient c/o incisional pain that is improving. Medicated with Oxycodone 20 mg and Flexeril during the night with good effect. C/o chronic numbness to bilateral legs, muscle strengths 4/5 bilaterally and slightly weaker on right side. ELMER drain with 15 cc sanguineous output o vernight. LSO C-Brace at all times. Wore CPAP with 1 lpm bled in during the night. Amee zhou signed by: LIZ REAVES RN 11/13/2016 6:18 lan of Care - Abhinav Gama RRT - 11/13/2016 4:49 AM PDTProblem: Patient Care Overview (Adult) Goal: Care Team Goals & Evaluation PROBLEM-RELATED GOALS: 1. Fredis will have his pain controlled at or below 4/10 through 11/14/16. 2. Fredis will have no falls or injury through 11/14/16. 3. Fredis will have no s/s of infections through 11/14/16 4. Fredis will ambulate with FWW and LSO C-Brace with minimal assistance by 11/13/16 5. Fredis's CMS will be at baseline or improved by 11/13/16 6. Fredis will tolerate a general diet without n/v by 11/12/16 7. Fredis will progress to modified indpt functional mobility and gait with FWW x 150' by 11/17. STRATEGY TO ACHIEVE GOALS: - Monitor pain level and medicate as ordered to maintain desired level. - Teach safe mobility techniques, and to call appropriately. - Medicate as ordered prophylactic antibiotics and teach infection control. - Encourage activity and muscle strengthening, get patient OOB with nursing and then encour age participation in PT and OT - Perform neurovascular checks as ordered, alert MD of any compromise -Advance diet as tolerated per RN discretion, Saline lock patient when taking fluids well -PT intervention and pt/ education and postop training. Outcome: Unchanged Goal Evaluation: SpO2: 96 % on 1liters/minute CPAP. I tried Fredis on a CPAP tonight an d he said it felt good. He seemed to be resting during the night. lan of Scott - Kofi Hawkins RN - 11/12/2016 6:05 PM PDTProblem: Patient Care Overview (Adult) Goal: Care Team Goals & Evaluation PROBLEM-RELATED GOALS: 1. Fredis will have his pain controlled at or below 4/10 through 11/14/16. 2. Fredis will have no falls or injury through 11/14/16. 3. Fredis will have no s/s of infections through 11/14/16 4. Fredis will ambulate with FWW and LSO C-Brace with minimal assistance by 11/13/16 5. Fredis's CMS will be at baseline or improved by 11/13/16 6. Fredis will tolerate a general diet without n/v by 11/12/16 7. Fredis will progress to modified indpt functional mobility and gait with FWW x 150' by 11/17. STRATEGY TO ACHIEVE GOALS: - Monitor pain level and medicate as ordered to maintain desired level. - Teach safe mobility techniques, and to call appropriately. - Medicate as ordered prophylactic antibiotics and teach infection control. - Encourage activity and muscle strengthening, get patient OOB with nursing and then encour age participation in PT and OT - Perform neurovascular checks as ordered, alert MD of any compromise -Advance diet as tolerated per RN discretion, Saline lock patient when taking fluids well -PT intervention and pt/ education and postop training. Outcome: Improving Goal Evaluation: pain controlled with po and iv medication. Patient up for meals. Alert oriented. lan of Care - Lulu May RN - 11/12/2016 4:52 PM PDTProblem: Discharge Planning Goal: Patient will be discharged in a safe manner Outcome: Improving This CM met with patient as he was sitting in his chair, to discuss his d/c plan. He reports that he lives with his , Bina, in [place], [place], and Maggi, his 's si ster will be his transport back home at discharge. This is his 4th back surgery already so he knows the drill, he states. He already has both a 2WW and 4WW at home with a shower stool, hand held shower head, toil et riser with handles, & grab bars in shower. He confirmed his PCP is Paulo Rothman MD, in [place] and [facility] is his pharmacy. He is very interested in home health support and feels he will need this for awhile. Sticky note left with MD requesting a HH order at discharge. HH orders will need to be faxed to [facility] at [phone] with call to them a p# [phone]. CM to follow for the HH.Electronically signed by: Lulu May RN 11/12/2016 16:52 lan of Care - Gabby Arellano OT - 11/12/2016 11:15 AM PDTFormatting of this note might be different from the jose antonio ginal. Problem: Patient Care Overview (Adult) Goal: Care Team Goals & Evaluation PROBLEM-RELATED GOALS: 1. Fredis will have his pain controlled at or below 4/10 through 11/14/16. 2. Fredis will have no falls or injury through 11/14/16. 3. Fredis will have no s/s of infections through 11/14/16 4. Fredis will ambulate with FWW and LSO C-Brace with minimal assistance by 11/13/16 5. Fredis's CMS will be at baseline or improved by 11/13/16 6. Fredis will tolerate a general diet without n/v by 11/12/16 7. Fredis will progress to modified indpt functional mobility and gait with FWW x 150' by 11/17. STRATEGY TO ACHIEVE GOALS: - Monitor pain level and medicate as ordered to maintain desired level. - Teach safe mobility techniques, and to call appropriately. - Medicate as ordered prophylactic antibiotics and teach infection control. - Encourage activity and muscle strengthening, get patient OOB with nursing and then encour age participation in PT and OT - Perform neurovascular checks as ordered, alert MD of any compromise -Advance diet as tolerated per RN discretion, Saline lock patient when taking fluids well -PT intervention and pt/ education and postop training. Outcome: Improving Occupational Therapy Plan of Care Initial Evaluation Note Summary: Pt encountered supine in bed. Reported "I'm just in a lot of pain". Pt recalled 2 /3 c brace precautions c no cues, vcs for 3/3 precautions. Pt required HOB raised to ~ 80 de grees, bed rails and mod A x2 to transfer to seated EOB. Pt groomed seated EOB, diaphoretic, however vitals remained stable. Returned to supine via logroll and min A to lift legs into bed. Pt dependent x 2P to reposition in bed. OT reccomending SNF dc at this time. Pt will be nefit from skilled OT services to increase ADL I and functional mobility. Occupational Therapy Discharge Recommendations are: Recommended discharge disposition: home with assist Post discharge occupational therapy recommendation: pt is motivated participant, home heal th Equipment Recommendations: none (Has all equipment from previous back surgeries. ) Planned Interventions:ADL retraining, IADL retraining, bed mobility training, strengthening , transfer training Recommended Frequency: Patient Status/Goals: Reflects last filed data and may be from multiple contributors. ADLs Will address further following tx session. Limited this session d/t diaphoresis and report of extreme pain. Groomed seated EOB c SBA. Grooming, Level of [place]: stand by assist Grooming Assess/Train, Position: sitting Grooming Assess/Train, Impairments: ROM decreased, decreased flexibility, strength decrease d, impaired balance Cognitive No concerns identified. Bed Mobility Assistive Device: bed rails, HOB elevated Supine to Sit, Level of [place]: moderate assist (50% patient effort), set up required , verbal cues required, tactile cues required, 2 person assist required Sit to Supine, Level of [place]: moderate assist (50% patient effort), verbal cues req uired, tactile cues required, 2 person assist required Safety Issues: decreased use of legs for bridging/pushing Impairments: strength decreased, motor control impaired, coordination impaired, impaired ba sarika, pain OT Goal Review Date Flowsheet Row Most Recent Value STG Review Date 11/19/16 at 11/12/2016 1407 LB Dressing Goal Flowsheet Row Most Recent Value STG Status new at 11/12/2016 1407 STG [place] Level modified independent at 11/12/2016 1407 Toilet Transfer Goal Flowsheet Row Most Recent Value STG Status new at 11/12/2016 1407 STG [place] Level modified independent at 11/12/2016 1407 Electronically signed by: Julissa Arellano OT, 11/12/2016 14:08 lan of Care - Nickie Garber, PT - 11/12/2016 9:45 AM PDTFormatting of this note might be different from the o riginal. Problem: Patient Care Overview (Adult) Goal: Care Team Goals & Evaluation PROBLEM-RELATED GOALS: 1. Fredis will have his pain controlled at or below 4/10 through 11/14/16. 2. Fredis will have no falls or injury through 11/14/16. 3. Fredis will have no s/s of infections through 11/14/16 4. Fredis will ambulate with FWW and LSO C-Brace with minimal assistance by 11/13/16 5. Fredis's CMS will be at baseline or improved by 11/13/16 6. Fredis will tolerate a general diet without n/v by 11/12/16 7. Fredis will progress to modified indpt functional mobility and gait with FWW x 150' by 11/17. STRATEGY TO ACHIEVE GOALS: - Monitor pain level and medicate as ordered to maintain desired level. - Teach safe mobility techniques, and to call appropriately. - Medicate as ordered prophylactic antibiotics and teach infection control. - Encourage activity and muscle strengthening, get patient OOB with nursing and then encour age participation in PT and OT - Perform neurovascular checks as ordered, alert MD of any compromise -Advance diet as tolerated per RN discretion, Saline lock patient when taking fluids well -PT intervention and pt/ education and postop training. Physical Therapy Plan of Care Initial Evaluation, Treatment Note Summary: Lele presents to physical therapy with mobility deficits s/p L3-S1, grade C. This is patient's 4 spinal surgery. Objective exam reveals impairments with aerobic capacity /endurance, gait, locomotion, and balance, neuromotor, muscle performance, ROM, motor functi on, integumentary integrity. Barriers to discharge and functional limitations include inabi lity to mobilize w/o 2 P assistance, high fall risk presently, needs to access home via step s and is unable to do at this time. Pt participated and verbalized good understanding of gra de C postop op education. He is presently on 3L O2, sats 96% but dipped x 1 to 83%, restored immediately to > 90% with breathing instruction. Pt became diaphoretic upon sitting, pain i s severe but he noted relieve after mobilization. Good effort and anticipate he will progres s well, but caution to right LE weakness and pt's large size. eLle will benefit from therapeutic intervention to address impairments and increase safet y and independence with activities necessary for safe discharge. Refer below for specific d etails regarding functional levels. Precautions/Limitations: falls, brace on when up, orthotic/bracing, spinal Left Lower Extremity Weight-Bearing: full weight-bearing Right Lower Extremity Weight-Bearing: full weight-bearing Previous Level of Function: Transferring: independent Ambulation: independent (with a walker) Toileting: independent Bathing: independent (use a shower chair) Dressing: independent Eating: independent Communication: understands/communicates without difficulty Swallowin-->swallows foods/liquids without difficulty Equipment Currently Used at Home: 2 wheeled walker (FWW) Prior Functional Level Comment: Lives with . Uses a FWW, indpt with ADL's. Potential available assistance at discharge: Living Environment/Accessibility: Lives With: spouse Living Arrangements: mobile home Home Accessibility: stairs to enter home Number of Stairs to Enter Home: 3 Number of Stairs Within Home: 0 Stair Railings at Home: inside, present at both sides Physical Therapy Discharge Recommendations are: Recommended discharge disposition: (TBD) Post discharge physical therapy recommendation: (TBD) Equipment Recommendations: 2 wheeled walker (FWW) Planned Interventions: bed mobility training, gait training, orthotic fitting/training, pa tient/family education, postural re-education, transfer training, stair training Recommended Frequency: daily Patient Status/Goals: Reflects last filed data and may be from multiple contributors. Gait Right LE weakness, heavy reliance on walker. Movt's painful and laborious, diaphoretic Level of [place]: contact guard assist, 2 person assist required, verbal cues required Assistive Device: 2 wheeled walker (FWW) Distance (feet): 8' Transfers Pt is 6'4", height of bed elevated to ease transition Sit-Stand, Level of [place]: 2 person assist required, minimal assist (75% patient ef fort), set up required, verbal cues required, tactile cues required (height of bed elevated) Stand-Sit, Level of [place]: contact guard assist, 2 person assist required, verbal cu es required [id number], Assistive Device: 2 wheeled walker (FWW) Safety Issues: balance decreased during turns, sequencing ability decreased, step length de creased Impairments: strength decreased, impaired balance, coordination impaired, pain Bed Mobility Pt struggled with logroll, aware of technique, but needing physical and mechanical assist f or rising to sitting position and for bilateral LE's BTB Assistive Device: bed rails, HOB elevated Supine to Sit, Level of [place]: moderate assist (50% patient effort), set up require d, verbal cues required, tactile cues required Sit to Supine, Level of [place]: moderate assist (50% patient effort), verbal cues req uired, tactile cues required Safety Issues: decreased use of legs for bridging/pushing Impairments: strength decreased, motor control impaired, coordination impaired, impaired ba sarika, pain Balance fair sitting/fair - standing with UE support Functional Endurance poor +; pain limits mobility ROM L LE ROM: WFL R LE ROM: painful/tightness lacking active full knee extenson x 30 deg Strength L LE Strength: grossly 5/5 R LE Strength: grossly 4/5 [facility] BAS[facility] MOBILITY [facility] Turning over in bed: a little difficulty without assistance Sitting down /standing up from arm chair: unable without assistance (2P assist required) Moving from supine to sitting on edge of bed: unable without assistance (2P assist required ) Moving to and from a bed to a chair : dependent/unable Walking in hospital room: dependent/unable Climbing 3-5 steps with a railing: dependent/unable TOTAL - [facility] BASIC MOBILITY : 8 Unable / dependent = 1 A lot / modA = 2 A little / Janell = 3 None / independent = 4 Completed the [facility] Activity Measure for Post Acute Care (AM-PAC) "6 Clicks" [facility] Mobility Inpatient Short Form. This version of the AM-PAC is an assessment tool used to measure a person's level of disability in performing basic mobility tasks. This patient's score indicates a performance of 86.62% impairment in the functioning of basic mobility. Raw Score - Functional Limitation % (for [facility]) - "Severity Modifier" CN 6 - 100.00 CM 7 - 92.36 8 - 86.62 9 - 81.38 CL 10 - 76.75 11 - 72.57 12 - 68.66 13 - 64.91 14 - 61.29 CK 15 - 57.70 16 - 54.16 17 - 50.57 18 - 46.58 19 - 41.77 CJ 20 - 35.83 21 - 28.97 22 - 20.91 CI 23 - 11.2 CH 24 - 0.00 Predicted Discharge During Acute Hospitalization (Raw Score) Home = 20.1 With assist = 17.9 SNF = 14 IRF = 13.6 LTAC = 11.5 PT Goal Review Date Flowsheet Row Most Recent Value STG Review Date 11/17/16 at 11/12/2016 0933 [id number] Goal Flowsheet Row Most Recent Value STG Status new at 11/12/2016 0933 STG [place] Level independent at 11/12/2016 0933 [id number] Goal Flowsheet Row Most Recent Value STG Status new at 11/12/2016 0933 STG [place] Level modified independent at 11/12/2016 0933 STG Assistive Device 2 wheeled walker (FWW) at 11/12/2016 0933 Gait Goal Flowsheet Row Most Recent Value STG Status new at 11/12/2016 0933 STG [place] Level modified independent at 11/12/2016 0933 STG Assistive Device 2 wheeled walker (FWW) at 11/12/2016 0933 STG Distance (feet) 150 at 11/12/2016 0933 Stair Goal Flowsheet Row Most Recent Value STG Status new at 11/12/2016 0933 STG [place] Level contact guard assist at 11/12/2016 0933 STG Assistive Device 2 rails at 11/12/2016 0933 Additional Goal #1 PT Flowsheet Row Most Recent Value STG Status new at 11/12/2016 0933 STG Pt able to verbalize and demonstrate compliance with grade C precautions, pt/ unde rstand don/doffing LSO in bed at 11/12/2016 0933 Electronically signed by: Nickie Garber, PT, 11/12/2016 9:39 lan of Care - Serenity Gama, [employer]OTE S[employer] PROGRAM MANAGER - 11/12/2016 5:50 AM PDTFormatting of this note might be different from the or iginal. Problem: Patient Care Overview (Adult) Goal: Care Team Goals & Evaluation PROBLEM-RELATED GOALS: 1. Fredis will have his pain controlled at or below 4/10 through 11/14/16. 2. Fredis will have no falls or injury through 11/14/16. 3. Fredis will have no s/s of infections through 11/14/16 4. Fredis will ambulate with FWW and LSO C-Brace with minimal assistance by 11/13/16 5. Fredis's CMS will be at baseline or improved by 11/13/16 6. Fredis will tolerate a general diet without n/v by 11/12/16 STRATEGY TO ACHIEVE GOALS: - Monitor pain level and medicate as ordered to maintain desired level. - Teach safe mobility techniques, and to call appropriately. - Medicate as ordered prophylactic antibiotics and teach infection control. - Encourage activity and muscle strengthening, get patient OOB with nursing and then encour age participation in PT and OT - Perform neurovascular checks as ordered, alert MD of any compromise -Advance diet as tolerated per RN discretion, Saline lock patient when taking fluids well Outcome: Unchanged Goal Evaluation: SpO2: 94 % on 3liters/minute nasal cannula. Patient put on continuous O2 monitoring. He wa s on 3lpm O2 saturating 94%. He did his IS well and was eager to use it again. His CPAP was in the brought to the room and is in standby. The patient stated he would wear it tonight if his mask fit him correctly. Severity Score 3 Class 1 Severity Score 0-4 ITEM 0 1 2 3 4 0 Respiratory History No Smoking history Current tobacco use Up to 10 Pack year history. Simple home regimen Known Pulmonary Disease 20 pack year history Complex Home regimen 30+ pack year history Severe Pulmonary Disease or exacerbation 1 Surgery Status (current admission) No surgery Minor surgery Lower abdominal rib fractures Thoracic or uppe r abdominal Thoracic with pulmonary disease or Central Nervous System 0 Chest X-RAY Clear or Normal baseline Unavailable Improving/clearing Abnormal, Unilateral or mild Infiltrates or atelectasis, Chronic changes Infiltrates mild bilateral or unilateral or pleural effusions extensive Inf iltrates, atelectasis or pleural effusions, pneumothorax 0 Respiratory Pattern Regular pattern Respiratory Rate:8-20 Increased Respiratory Rate, labored Dyspnea on exertion, irregular pattern Use of accessory muscles, prolonged expirato ry phase nasal flaring Severe Dyspnea , Purse Lip Breathing, Use of accessory muscles 0 Breath Sounds Clear Diminished unilaterally Diminished bilaterally &/or crackles Wheezing or Rhonchi &/or absent unilateral Absent bilaterally 0 Cough Strong, non productive Moderate, loose, productive Weak, non-productive Weak, ineffective Non-spontaneous or may require suctioning 0 Sputum None Scant / Thin White/clear Moderate Beige/ yellow Large / Thick Dark Green/Brown Copious / Plugs Hemoptysis zena 0 LOC Alert, oriented, cooperative Disoriented, follows commands Obtunded, arousable, follo ws commands Obtunded, uncooperative, sedated Comatose 2 Oxygen Demand Room air Baseline 1-2 liters 3-6 liters >7 Liters Oxymizer to > 55% 60% or greater Total Severity Score (SS) Class 0-3 1 4-7 2 8-11 3 12-14 4 15+ 5 lan of Care - Liz Banda RN - 11/12/2016 5:06 AM PDTProblem: Patient Care Overview (Adult) Goal: Care Team Goals & Evaluation PROBLEM-RELATED GOALS: 1. Fredis will have his pain controlled at or below 4/10 through 11/14/16. 2. Fredis will have no falls or injury through 11/14/16. 3. Fredis will have no s/s of infections through 11/14/16 4. Fredis will ambulate with FWW and LSO C-Brace with minimal assistance by 11/13/16 5. Fredis's CMS will be at baseline or improved by 11/13/16 6. Fredis will tolerate a general diet without n/v by 11/12/16 STRATEGY TO ACHIEVE GOALS: - Monitor pain level and medicate as ordered to maintain desired level. - Teach safe mobility techniques, and to call appropriately. - Medicate as ordered prophylactic antibiotics and teach infection control. - Encourage activity and muscle strengthening, get patient OOB with nursing and then encour age participation in PT and OT - Perform neurovascular checks as ordered, alert MD of any compromise -Advance diet as tolerated per RN discretion, Saline lock patient when taking fluids well Outcome: Improving Goal Evaluation: Patient is POD#1 from L3-4, L5-S1 fusion. He does report high levels of pain 8-10/10 to lo w back, radiating down left side (operative side), but seems to get adequate relief from lee n medications, as he has been sleeping between cares. Medicated with Oxycodone 15 mg, Flexer il and Dilaudid 1 mg IV intermittently during the night. He reports chronic weakness to righ t side, which is evident upon assessment. Dorsi plantar strong on left, dorsi moderate and p lantar strong on right. 4/5 BLE muscle strength. Patient stood at bedside with FWW, walked i n place and did have noticeable weakness on RLE, although he was able to move and bear weigh t adequately. Denies numbness/tingling. LSO C-Brace on at all times except when flat to asse ss back. He does need frequent education and reminders not to twist during bed mobility. ELMER drain with 130 cc sanguineous output during the night. Required 3 lpm n/c to maintain SpO2 w hile sleeping. Has been tachycardic since his admission. HRR. Electronically signed by: LIZ REAVES RN 11/12/2016 5:06 lan of Care - Virgen Ritchie RN - 11/11/2016 9:32 PM PDTProblem: Patient Care Overview (Adult) Goal: Care Team Goals & Evaluation PROBLEM-RELATED GOALS: 1. Ferdis will have his pain controlled at or below 4/10 through 11/14/16. 2. He will have no falls or injury through 11/14/16. 3. He will have no s/s of infections through 11/14/16 STRATEGY TO ACHIEVE GOALS: - Monitor pain level and medicate as ordered to maintain desired level. - Teach safe mobility techniques, and to call appropriately. - Medicate as ordered prophylactic antibiotics and teach infection control. Outcome: Improving Goal Evaluation: His pain was rated at a 10/10 pain the whole time I cared for him, it took pharmacy about an hour to ok his medications because there was something they had to clear with the doctor. He had no falls or injury or s/s of infection through this shift. He had good CMS except numbness in his left lower extremity. [employer] [place] were strong, Dorsi flexion was strong and plant ar was moderate. His last BM was 11/10/16 and his BT were good. He voided at the end of the shift. The ELMER drain drained small sanguinous drainage. p Note - Gian Gillespie MD - 11/11/2016 5:22 PM PDTFormatting of this note might be different from the origina l. Operative Note Lele Mustafa 56 y.o. male 1960 [id number] Proc. Date 11/11/2016 Preop Dx Spondylolisthesis of lumbar region (M43.16), Isthmic Neural foraminal stenosis of lumbar spine (M99.83) Lumbar radiculopathy (M54.16) Spinal stenosis, lumbar region, without neurogenic claudication (M48.06), Degeneration of lumbar intervertebral disc (M51.36) Severe morbid obesiyy, BMI > 40 Chronic opioid use S/p lumbar fusion with pseudoarthrosis and complicated by infection Postop Dx same Osteopenia Procedure 1. Minimally invasive lumbar fusion via anterior and posterior approaches 2. Combined posteriolateral and posterior interbody arthrodesis L5-S1 3. Anterior lumbar interbody arthrodesis L3-4, L4-5 4. Posterolateral lumbar arthrodesis L3, L4, L5 5. Posterior spinal instrumentation L3-S1 with use of Precept 6. Placement of PEEK interbody spacer L3-4, L4-5, L5-S1 7. L5 laminectomy, L5-S1 facetectomy, L5 and S1 foraminotomy for decompression of L5 and S1 nerves 8. Microsurgical technique with use of operating microscope 9. Intraoperative fluoroscopy for spinal instrumentation Anesthesia General Surgeon Kai Gillespie MD - Primary Facility Sales And Admin Sonido Lund PA-C EBL 325 Findings L3-S1 osteopenia. Failed fusion L4-S1. Spondylolisthesis. Subsidence at L5 due to soft bone. Complications none Specimens * No specimens in log * Drains ELMER Operative details: After obtaining consent, the patient was taken to the operating room and placed under gener al anesthesia. He was then positioned in a lateral position with the left side up. He was co nnected to the neuromonitoring system and secured to the bed with tape. His face, neck, ches t and extremities positioned and padded appropriately. His flank was prepped and draped in standard fashion and a timeout was performed. All members of the surgical team agreed with the timeout. Fluoroscopy was then used to localize the levels of L3-5 on lateral fluoroscopy, and a skin incision was made in the left lateral flank approximately 3 cm in length. Subcutaneous tiss ues were dissected with bovie and blunt dissection to the abdominal wall. The musculature wa s divided with tonsils and then finger sweeping was used to develop the retroperitoneal spac e. An initial dilator was then inserted onto the surface of the psoas at L4-5 and neuromonit oring was performed. The nerves were identified posteriorly at 16. Sequential dilatation and monitor was performed and then a retractor was inserted over the dilators. The light source s were connected and the area was inspected visually and with a ball tip neuro probe. No ner ves were identified. The retractor was opened. The disc at L4-5 was then removed in a piecemeal fashion by first incising it and then usin g Marisa, broaches, curretes, and pituitary rongeurs. The endplates were prepared for arthrod esis. Trials were then inserted and a 15 degree by 14 by 22 by 60 mm spacer was determined t o be the appropriate size. A PEEK spacer was prepared filling it with Blackford/BMP and then tamping it into the interspace at L4-5. The retractor was then removed obtaining hemostasis along the tract. An initial dilator was then inserted onto the surface of the psoas at L3-4 and neuromonitor ing was performed. The nerves were identified posteriorly at >20. Sequential dilatation and monitor was performed and then a retractor was inserted over the dilators. The light sources were connected and the area was inspected visually and with a ball tip neuro probe. No nerv es were identified. The retractor was opened The disc at L3-4 was then removed in similar, piecemeal fashion by first incising it and th en using Marisa, broaches, curretes, and pituitary rongeurs. The endplates were prepared for arthrodesis. Trials were then inserted and a 15 degree by 10 by 22 by 60 mm spacer was deter mined to be the appropriate size. A PEEK spacer was prepared filling it with Blackford/BMP and then tamping it into the interspace at L3-4. The retractor was then removed obtaining hemos tasis along the tract. The fascia was then closed with 0 Vicryl sutures, followed by closure of the skin with two layers of 2-0 Quill-type sutures followed by closure of the skin with skin glue. The wound w as dressed with steristrips and a Band-Aid. This completed the anterior portion of the proc edure. He was then positioned in a prone position on the Javier axis table with his face, neck, c hest and extremities positioned and padded appropriately. His back was prepped and draped i n standard fashion and a timeout was performed. All members of the surgical team agreed with the timeout. Fluoroscopy was then used to localize the level of L3-S1 on lateral fluoroscopy, and then 2 skin incisions were made approximately 4.5 cm in length, approximately 3.75 cm off the midl ine in a paramedian fashion on both sides. Subcutaneous tissues were made hemostatic with Remigio vie cautery. Pedicle cannulas were then guided into pedicles at L3, L4, L5 and S1 using AP fluoroscopic guidance and lateral confirmation. There were no breaches to the canal or the pedicles. Bone marrow was aspirated in the pedicles and then the cannulas were removed afte r cannulating them with K-wires. The wires were secured to the drape. Working between the wires starting on the patient's left side, a METRx tube was docked down on the L3-4, L4-5, and L5-S1 lamina facet complexes. Bovie cautery was used to expose the lamina of L3, L4, L5, and S1 and the L3-4, L4-5, and L5-S1 facets. High-speed drill was use d to decorticate the exposed bone, and then morselized local bone autograft obtained from th e drilling and cancellous chps/Blackford with bone marrow aspirate were packed in the posterol ateral aspect of the spine along the decorticated bone. This completed the posterolateral f usion from L3-S1. Attention was then paid to the right and more symptomatic side where a decompression was pe rformed. A METRx tube was docked on the patient's lamina and facet complex and then a high- speed drill was used to drill through the lamina and the pars segment using the microscope f or microsurgical dissection. The drilling allowed for an en bloc removal of the L5 lamina a nd the L5 inferior facet, which was harvested for planned arthrodesis. The S1 superior face t was then removed from the foramen by disconnecting it from its base with a high-speed dril l and removing the fragment with pituitary rongeur. The superior lamina of S1 was removed with a Kerrison to decompress with traversing root to its proximal foramen. The ligamentum was then taken down with a microhook and Kerrison rongeur, decompressing the underlying dura . Once the disk space could adequately be accessed, pituitary rongeurs, end plate lizeth, curettes, and Kerrison rongeurs were used to widen the decompression and perform an aggressi ve diskectomy. The endplates were prepared for arthrodesis. The exiting L5 nerve and trave rsing S1 nerve were then felt to be free of compression. The depth of the above work was ov er 9 cm due to his severe morbid obesity and large body habitus making imaging challenging a nd requiring modification of the standard techniques and tools. Trials were then inserted, and a 10 x 30 mm PEEK spacer using Coroent 12 degree was determi nicole to be the appropriate size. The interspace was packed with cancellous chips and also wi th morselized local autograft. The PEEK spacer was filled with morselized local bone autogr aft and BMP. The PEEK spacer was then tamped into the posterior interbody space. Unfortuna tely, the spacer subsided at L5 due to the softer bone encountered throughout. Additional b one was packed in the space and and additional XXS BMP was placed in the interbody space lat erally. The tubular retractor was then removed here, obtaining hemostasis with FloSeal and bipolar cautery. The previously placed wires were then used for placement of instrumentation. The pedicles were undertapped and then instrumented. 7.5 x 60 mm Precept screws were inserted at L3 and L4. 8.5 x 55 mm screws were inserted at L5 and S1. The screw towers were aligned, and then a 90 mm haylee was passed through the towers and successfully reduced down bilaterally. Set s crews were inserted and then final tightening of the set screws was performed. Then the tow ers and haylee passer were removed fully. Final fluoroscopic images confirmed appropriate place ment of instrumentation. 20 mL of exparel was infiltrated into the paraspinous muscles. Epidural blood was evacuated using a METRx tube, a drain was placed at the site, and it was tunneled out the skin. The fascia was then closed bilaterally with 0 Vicryl sutures, Vanc p owder was placed in the wound, followed by closure of the skin with two layers of 2-0 Quill- type sutures. Then 20 mL of 0.5% Marcaine with epinephrine was infiltrated in the back follo wed by closure of the skin with skin glue. The wounds were dressed with steristrips/Band- ds. The drain was secured with a Band-Aid and Tegaderm. All counts were reported as correct. The patient tolerated the procedure and was transferr ed to the recovery room in stable condition. Electronically signed by: Kai Gillespie MD 11/11/2016 17:19 [facility] rief Op Note - Kong Gillespie MD - 11/11/2016 5:19 PM PDTFormatting of this note might be different from the origin al. Brief Operative Note Lele Mustafa 56 y.o. male 1960 [id number] Proc. Date 11/11/2016 Preop Dx Spondylolisthesis of lumbar region (M43.16), Isthmic Neural foraminal stenosis of lumbar spine (M99.83) Lumbar radiculopathy (M54.16) Spinal stenosis, lumbar region, without neurogenic claudication (M48.06), Degeneration of lumbar intervertebral disc (M51.36) Severe morbid obesiyy, BMI > 40 Chronic opioid use S/p lumbar fusion with pseudoarthrosis and complicated by infection Postop Dx same Osteopenia Procedure 1. Minimally invasive lumbar fusion via anterior and posterior approaches 2. Combined posteriolateral and posterior interbody arthrodesis L5-S1 3. Anterior lumbar interbody arthrodesis L3-4, L4-5 4. Posterolateral lumbar arthrodesis L3, L4, L5 5. Posterior spinal instrumentation L3-S1 with use of Precept 6. Placement of PEEK interbody spacer L3-4, L4-5, L5-S1 7. L5 laminectomy, L5-S1 facetectomy, L5 and S1 foraminotomy for decompression of L5 and S1 nerves 8. Microsurgical technique with use of operating microscope 9. Intraoperative fluoroscopy for spinal instrumentation Anesthesia General Surgeon Kai Gillespie MD - Primary Facility Sales And Admin AYALA Thompson-Natasha EBL 325 Findings L3-S1 osteopenia. Failed fusion L4-S1. Spondylolisthesis. Subsidence at L5 due to soft bone. Complications none Specimens * No specimens in log * Drains ELMER Electronically signed by: Kai Gillespie MD 11/11/2016 17:19 [facility] Kai Gillespie MD at 017 5:22 PM PDTdocumented in this encounter Plan of Treatment + +------+--------+ + + | Name | Type | Priori | Associated Diagnoses | Order Schedule | | | | ty | | | + +------+--------+ + + | DME: Walker | DME | Routin | Gait abnormality | DME 1 Time for 1 | | | | e | | Occurrences starting | | | | | | 11/11/2016 until | | | | | | 11/11/2016 | + +------+--------+ + + documented as of this encounter Procedures + +--------+ + + + | Procedure Name | Priori | Date/Time | Associated Diagnosis | Comments | | | ty | | | | + +--------+ + + + | POC GLUCOSE | Routin | 11/15/2016 | | Results for this | | | e | 6:34 AM | | procedure are in the | | | | PDT | | results section. | + +--------+ + + + | POC GLUCOSE | Routin | 11/14/2016 | | Results for this | | | e | 8:07 PM | | procedure are in the | | | | PDT | | results section. | + +--------+ + + + | POC GLUCOSE | Routin | 11/14/2016 | | Results for this | | | e | 5:27 PM | | procedure are in the | | | | PDT | | results section. | + +--------+ + + + | POC GLUCOSE | Routin | 11/14/2016 | | Results for this | | | e | 12:49 PM | | procedure are in the | | | | PDT | | results section. | + +--------+ + + + | POC GLUCOSE | Routin | 11/14/2016 | | Results for this | | | e | 6:50 AM | | procedure are in the | | | | PDT | | results section. | + +--------+ + + + | POC GLUCOSE | Routin | 11/13/2016 | | Results for this | | | e | 8:49 PM | | procedure are in the | | | | PDT | | results section. | + +--------+ + + + | POC GLUCOSE | Routin | 11/13/2016 | | Results for this | | | e | 4:50 PM | | procedure are in the | | | | PDT | | results section. | + +--------+ + + + | POC GLUCOSE | Routin | 11/13/2016 | | Results for this | | | e | 12:08 PM | | procedure are in the | | | | PDT | | results section. | + +--------+ + + + | POC GLUCOSE | Routin | 11/13/2016 | | Results for this | | | e | 6:20 AM | | procedure are in the | | | | PDT | | results section. | + +--------+ + + + | POC GLUCOSE | Routin | 11/12/2016 | | Results for this | | | e | 9:26 PM | | procedure are in the | | | | PDT | | results section. | + +--------+ + + + | POC GLUCOSE | Routin | 11/12/2016 | | Results for this | | | e | 4:50 PM | | procedure are in the | | | | PDT | | results section. | + +--------+ + + + | POC GLUCOSE | Routin | 11/12/2016 | | Results for this | | | e | 11:42 AM | | procedure are in the | | | | PDT | | results section. | + +--------+ + + + | POC GLUCOSE | Routin | 11/12/2016 | | Results for this | | | e | 6:36 AM | | procedure are in the | | | | PDT | | results section. | + +--------+ + + + | POC GLUCOSE | Routin | 11/11/2016 | | Results for this | | | e | 8:28 PM | | procedure are in the | | | | PDT | | results section. | + +--------+ + + + | XR LUMBAR SPINE 2 OR | STAT | 11/11/2016 | | Results for this | | 3 VW | | 5:57 PM | | procedure are in the | | | | PDT | | results section. | + +--------+ + + + | FL JANICE STATS NO | Routin | 11/11/2016 | | Results for this | | CHARGE | e | 4:20 PM | | procedure are in the | | | | PDT | | results section. | + +--------+ + + + | FUSION LUMBAR W/ | | 11/11/2016 | Spondylolisthesis | | | LATERAL APPROACH | | 11:33 AM | of lumbar region | | | (XLIF) | | PDT | (M43.16), Neural | | | | | | foraminal stenosis | | | | | | of lumbar spine | | | | | | (M99.83), Lumbar | | | | | | radiculopathy | | | | | | (M54.16), Spinal | | | | | | stenosis, lumbar | | | | | | region, without | | | | | | neurogenic | | | | | | claudication | | | | | | (M48.06), | | | | | | Degeneration of | | | | | | lumbar | | | | | | intervertebral disc | | | | | | (M51.36) | | + +--------+ + + + +---+--------+ | | Case | | | Notes | | | | | | Origin | | | al | | | Reques | | | t | | | Inform | | | ation | | | Sent | | | Over | | | 11/09/ | | | 2016:N | | | euromo | | | nitori | | | ng: | | | Neurov | | | isionM | | | IS; | | | Side: | | | LeftIn | | | strume | | | nts: | | | C-arm, | | | | | | Drill, | | | | | | Micros | | | cope, | | | MetrxI | | | mplant | | | s: | | | XLIF | | | Precep | | | t TLIF | | | cages | | | LEFT | | | OLIF | | | Biolog | | | ics: | | | BMP | | | Grafto | | | n | | | Instru | | | mentat | | | ion | | | Rep to | | | | | | Notify | | | : Cor | | | y | | | Conkli | | | n | | | (Nuvas | | | vonda) | | | Table | | | : | | | Jackso | | | n Zaleski | | | | | | FrameE | | | st | | | time: | | | 240min | +---+--------+ | | | | | Specia | | | l | | | Needs | | | Armando | | | (Nuvas | | | vonda) - | | | XLIF, | | | | | | Precep | | | t, | | | TLIF | | | Cages, | | | Left | | | OLIFSi | | | de: | | | LeftTa | | | ble: | | | Jackso | | | n Zaleski | +---+--------+ + +--------+ +---+ + | POC GLUCOSE | Routin | 11/11/2016 | | Results for this | | | e | 9:36 AM | | procedure are in the | | | | PDT | | results section. | + +--------+ +---+ + documented in this encounter Results POC Glucose (11/15/2016 6:34 AM PDT) + +-------+ + + + | Component | Value | Ref Range | Performed | Pathologist | | | | | At | Signature | + +-------+ + + + | Glucose, | 109 | 70 - 109 mg/dL | [facility] [...] | [address] | [address] | [place] | [phone] | | [facility] | | [address] | | | - LABORATORY | | | | + + + + + POC Glucose (11/14/2016 8:07 PM PDT) + +---------+ + + + | Component | Value | Ref Range | Performed | Pathologist | | | | | At | Signature | + +---------+ + + + | Glucose, | 235 (H) | 70 - 109 mg/dL | [...] | [address] | [address] | [place] | [phone] | | [facility] | | [address] | | | - LABORATORY | | | | + + + + + POC Glucose (11/14/2016 5:27 PM PDT) + +---------+ + + + | Component | Value | Ref Range | Performed | Pathologist | | | | | At | Signature | + +---------+ + + + | Glucose, | 229 (H) | 70 - 109 mg/dL | [...] + + | Performing | Address | City/State/[facility] | Phone Number | | Organization | | | | + + + + + | [facility] | [address] | [place] | [phone] | | [facility] | | [address] | | | - LABORATORY | | | | + + + + + POC Glucose (11/14/2016 12:49 PM PDT) + +---------+ + + + | Component | Value | Ref Range | Performed | Pathologist | | | | | At | Signature | + +---------+ + + + | Glucose, | 319 (H) | 70 - 109 mg/dL | [address] | [place] | [phone] | | [facility] | | [address] | | | - LABORATORY | | | | + + + + + POC Glucose (11/14/2016 6:50 AM PDT) + +---------+ + + + | Component | Value | Ref Range | Performed | Pathologist | | | | | At | Signature | + +---------+ + + + | Glucose, | 199 (H) | 70 - 109 mg/dL | [...] | + + + + + | [facility] | [address] | [place] | [phone] | | [facility] | | [address] | | | - LABORATORY | | | | + + + + + POC Glucose (11/13/2016 8:49 PM PDT) + +---------+ + + + | Component | Value | Ref Range | Performed | Pathologist | | | | | At | Signature | + +---------+ + + + | Glucose, | 243 (H) | 70 - 109 mg/dL | [facility] | | | POC | | | [place] | | | | | [...] + | [facility] | [address] | [place] | [phone] | | [facility] | | [address] | | | - LABORATORY | | | | + + + + + POC Glucose (11/13/2016 4:50 PM PDT) + +---------+ + + + | Component | Value | Ref Range | Performed | Pathologist | | | | | At | Signature | + +---------+ + + + | Glucose, | 221 (H) | 70 - 109 mg/dL | [...] [address] | [place] | [phone] | | [facility] | | [address] | | | - LABORATORY | | | | + + + + + POC Glucose (11/13/2016 12:08 PM PDT) + +---------+ + + + | Component | Value | Ref Range | Performed | Pathologist | | | | | At | Signature | + +---------+ + + + | Glucose, | 266 (H) | 70 - 109 mg/dL | [facility] | | | POC | | | [...] + | [facility] | [address] | [place] | [phone] | | [facility] | | [address] | | | - LABORATORY | | | | + + + + + POC Glucose (11/13/2016 6:20 AM PDT) + +---------+ + + + | Component | Value | Ref Range | Performed | Pathologist | | | | | At | Signature | + +---------+ + + + | Glucose, | 122 (H) | 70 - 109 mg/dL | [...] [address] | [place] | [phone] | | [facility] | | [address] | | | - LABORATORY | | | | + + + + + POC Glucose (11/12/2016 9:26 PM PDT) + +---------+ + + + | Component | Value | Ref Range | Performed | Pathologist | | | | | At | Signature | + +---------+ + + + | Glucose, | 254 (H) | 70 - 109 mg/dL | [...] [address] | [place] | [phone] | | [facility] | | [address] | | | - LABORATORY | | | | + + + + + POC Glucose (11/12/2016 4:50 PM PDT) + +---------+ + + + | Component | Value | Ref Range | Performed | Pathologist | | | | | At | Signature | + +---------+ + + + | Glucose, | 288 (H) | 70 - 109 mg/dL | [...] + | [facility] | [address] | [place] | [phone] | | [facility] | | [address] | | | - LABORATORY | | | | + + + + + POC Glucose (11/12/2016 11:42 AM PDT) + +---------+ + + + | Component | Value | Ref Range | Performed | Pathologist | | | | | At | Signature | + +---------+ + + + | Glucose, | 217 (H) | 70 - 109 mg/dL | [...] ST[facility] | [address] | [place], [place] | [phone] | | [facility] | | [address] | | | - LABORATORY | | | | + + + + + POC Glucose (11/12/2016 6:36 AM PDT) + +---------+ + + + | Component | Value | Ref Range | Performed | Pathologist | | | | | At | Signature | + +---------+ + + + | Glucose, | 323 (H) | 70 - 109 mg/dL | [...] | + + + + + | [facility] | [address] | [place] | [phone] | | [facility] | | [address] | | | - LABORATORY | | | | + + + + + POC Glucose (11/11/2016 8:28 PM PDT) + +---------+ + + + | Component | Value | Ref Range | Performed | Pathologist | | | | | At | Signature | + +---------+ + + + | Glucose, | 331 (H) | 70 - 109 mg/dL | [address] | [place] | [phone] | | [facility] | | [address] | | | - LABORATORY | | | | + + + + + XR Lumbar Spine 2 or 3 Vw (11/11/2016 5:57 PM PDT) + + | Specimen | + + | | + + + + + | Narrative | Performed At | + + + | LUMBAR SPINE: 11/11/2016 5:47 PM CLINICAL HISTORY: post op | [facility] | | COMPARISON: 08/26/2016 FINDINGS: AP and crosstable lateral views of | | | lumbar spine. Posterior pedicle screw and haylee and interbody fusion | | | has been placed from L3 to S1. Fixation components are intact and | | | appropriate position and configuration. Vertebral body heights are | | | normal. No acute bony abnormality. Alignment is stable with mild | | | retrolisthesis at L3-L4. Linear density anterior to the L2-L3 | | | interspace on the lateral view has appearance of artifactual | | | material, external to the patient. No other adjacent soft tissue | | | abnormality. Surgical drains are noted. IMPRESSION - Satisfactory | | | immediate postoperative appearances of L3-S1 posterior pedicle screw | | | and haylee and interbody fusion. Dictated and Signed by: Jose Blue | | MD Lawrence Electronically signed: 11/12/2016 11:00 AM | | + + + + + | Procedure Note | + + | Arnaldo, Rad Results In - 11/12/2016 11:04 AM PDT LUMBAR SPINE: 11/11/2016 5:47 PM | | | | CLINICAL HISTORY: post op | | | | COMPARISON: 08/26/2016 | | | | FINDINGS: AP and crosstable lateral views of lumbar spine. | | | | Posterior pedicle screw and haylee and interbody fusion has been placed from L3 to | | S1. Fixation components are intact and appropriate position and configuration. | | Vertebral body heights are normal. No acute bony abnormality. Alignment is | | stable with mild retrolisthesis at L3-L4. | | | | Linear density anterior to the L2-L3 interspace on the lateral view has | | appearance of artifactual material, external to the patient. No other adjacent | | soft tissue abnormality. Surgical drains are noted. | | | | IMPRESSION - Satisfactory immediate postoperative appearances of L3-S1 posterior | | pedicle screw and haylee and interbody fusion. | | | | Dictated and Signed by: Jose Bravo MD | | Electronically signed: 11/12/2016 11:00 AM | + + + +---------+ + + | Performing | Address | City/State/Zipcode | Phone Number | | Organization | | | | + +---------+ + + | [facility] | | | | + +---------+ + + FL C-Arm Stats No Charge (11/11/2016 4:20 PM PDT) + + | Specimen | + + | | + + + + + | Narrative | Performed At | + + + | No Radiologist interpretation, please see Chart Review. | [facility] | + + + + +---------+ + + | Performing | Address | City/State/Zipcode | Phone Number | | Organization | | | | + +---------+ + + | [facility] | | | | + +---------+ + + POC Glucose (11/11/2016 9:36 AM PDT) + +---------+ + + + | Component | Value | Ref Range | Performed | Pathologist | | | | | At | Signature | + +---------+ + + + | Glucose, | 280 (H) | 70 - 109 mg/dL | [...] + | [facility] | [address] | [place] | [phone] | | [facility] | | [address] | | | - LABORATORY | | | | + + + + + documented in this encounter Visit Diagnoses Not on filedocumented in this encounter Administered Medications + +--------+ +--------+------+------+ | Medication Order | MAR | Action | Dose | Rate | Site | | | Action | Date | | | | + +--------+ +--------+------+------+ | acetaminophen (TYLENOL) tablet | Given | 11/13/19 | 650 mg | | | | 650 mg 650 mg, Oral, EVERY 4 | | 17 10:48 | | | | | HOURS PRN, Pain, Fever, Starting | | PM PDT | | | | | Phyllis 11/11/16 at 1809, | | | | | | | Post-op/Phase II | | | | | | + +--------+ +--------+------+------+ +---+---+ | | | +---+---+ + +-------+ +---------+---+ + | bacitracin injection PRN, | Given | 11/12/19 | 50,000 | | Surgical | | Starting [facility] 11/11/16 at 1316, | | 17 1:16 | Units | | Site | | Intra-op | | PM PDT | | | | + +-------+ +---------+---+ + +---+---+ | | | +---+---+ + +-------+ +--------+---+ + | bupivacaine (liposomal) | Given | 11/12/19 | 20 mLs | | Surgical | | (EXPAREL) 1.3% injection PRN, | | 17 1:16 | | | Site | | Starting [facility] 11/11/16 at 1316, | | PM PDT | | | | | Intra-op | | | | | | + +-------+ +--------+---+ + +---+---+ | | | +---+---+ + +-------+ +--------+---+ + | bupivacaine 0.5%-EPINEPHrine | Given | 11/12/19 | 20 mLs | | Surgical | | 1:200,000 injection PRN, | | 17 1:16 | | | Site | | Starting [facility] 11/11/16 at 1316, | | PM PDT | | | | | Intra-op | | | | | | + +-------+ +--------+---+ + +---+---+ | | | +---+---+ + +-------+ +-------+---+---+ | cyclobenzaprine (FLEXERIL) | Given | 11/16/19 | 10 mg | | | | tablet 10 mg 10 mg, Oral, EVERY | | 17 11:58 | | | | | 6 HOURS PRN, Muscle spasms, | | AM PDT | | | | | Starting Phyllis 11/11/16 at 1809, | | | | | | | Post-op/Phase II | | | | | | + +-------+ +-------+---+---+ +-------+ +-------+---+---+ | Given | 11/16/19 | 10 mg | | | | | 17 6:32 | | | | | | AM PDT | | | | +-------+ +-------+---+---+ | Given | 11/15/19 | 10 mg | | | | | 17 6:08 | | | | | | PM PDT | | | | +-------+ +-------+---+---+ + +---+ | | | + +---+ | dextrose 50% injection 12.5 g | | | 12.5 g, Intravenous, PRN, Low | | | Blood Sugar, Starting Phyllis 11/11/16 | | | at 1809, Post-op/Phase II | | + +---+ | | | + +---+ | diphenhydrAMINE (BENADRYL) 12.5 | | | mg/5 mL liquid 25 mg 25 mg, | | | Oral, EVERY 4 HOURS PRN, Itching, | | | Starting Phyllis 11/11/16 at 1809, | | | Oral route is preferred., | | | Post-op/Phase II | | + +---+ | | | + +---+ | diphenhydrAMINE (BENADRYL) | | | injection 12.5 mg 12.5 mg, | | | Intravenous, EVERY 4 HOURS PRN, | | | Itching, Starting Phyllis 11/11/16 at | | | 1809, Oral route is preferred., | | | Post-op/Phase II | | + +---+ | | | + +---+ | diphenhydrAMINE (BENADRYL) | | | tablet 25 mg 25 mg, Oral, EVERY | | | 4 HOURS PRN, Itching, Starting | | | Phyllis 11/11/16 at 1809, Oral route | | | is preferred., Post-op/Phase II | | + +---+ | | | + +---+ + +-------+ +--------+---+---+ | docusate sodium (COLACE) | Given | 11/16/19 | 100 mg | | | | capsule 100 mg 100 mg, Oral, | | 17 8:54 | | | | | TIMES DAILY, First dose on Phyllis | | AM PDT | | | | | 11/11/16 at 2100, First line agent | | | | | | | for constipation, Post-op/Phase | | | | | | | II | | | | | | + +-------+ +--------+---+---+ +-------+ +--------+---+---+ | Given | 11/15/19 | 100 mg | | | | | 17 8:04 | | | | | | PM PDT | | | | +-------+ +--------+---+---+ | Given | 11/15/19 | 100 mg | | | | | 17 9:31 | | | | | | AM PDT | | | | +-------+ +--------+---+---+ +---+---+ | | | +---+---+ + +-------+ +-------+---+---+ | DULoxetine (CYMBALTA) DR | Given | 11/16/19 | 60 mg | | | | capsule 60 mg 60 mg, Oral, | | 17 8:53 | | | | | DAILY, First dose on Tue11/11/16 | | AM PDT | | | | | at 1830, Do not open capsule., | | | | | | | Post-op/Phase II | | | | | | + +-------+ +-------+---+---+ +-------+ +-------+---+---+ | Given | 11/15/19 | 60 mg | | | | | 17 9:31 | | | | | | AM PDT | | | | +-------+ +-------+---+---+ | Given | 11/14/19 | 60 mg | | | | | 17 8:17 | | | | | | AM PDT | | | | +-------+ +-------+---+---+ +---+---+ | | | +---+---+ + +-------+ +--------+---+---+ | gabapentin (NEURONTIN) capsule | Given | 11/16/19 | 600 mg | | | | 600 mg 600 mg, Oral, 3 TIMES | | 17 9:10 | | | | | DAILY, First dose on [facility] 11/11/16 | | AM PDT | | | | | at 2100, Post-op/Phase II | | | | | | + +-------+ +--------+---+---+ +-------+ +--------+---+---+ | Given | 11/15/19 | 600 mg | | | | | 17 8:04 | | | | | | PM PDT | | | | +-------+ +--------+---+---+ | Given | 11/15/19 | 600 mg | | | | | 17 2:31 | | | | | | PM PDT | | | | +-------+ +--------+---+---+ +---+---+ | | | +---+---+ + +-------+ +---------+---+---+ | hydroCHLOROthiazide (MICROZIDE) | Given | 11/16/19 | 12.5 mg | | | | capsule 12.5 mg 12.5 mg, Oral, | | 17 8:54 | | | | | DAILY, First dose on Tue11/11/16 | | AM PDT | | | | | at 1830, Post-op/Phase II | | | | | | + +-------+ +---------+---+---+ +-------+ +---------+---+---+ | Given | 11/15/19 | 12.5 mg | | | | | 17 9:32 | | | | | | AM PDT | | | | +-------+ +---------+---+---+ | Given | 11/14/19 | 12.5 mg | | | | | 17 8:17 | | | | | | AM PDT | | | | +-------+ +---------+---+---+ +---+---+ | | | +---+---+ + +-------+ +------+---+---+ | HYDROmorphone (DILAUDID) | Given | 11/16/19 | 1 mg | | | | injection 0.25-1 mg 0.25-1 mg, | | 17 11:57 | | | | | Intravenous, EVERY 2 HOURS PRN, | | AM PDT | | | | | Pain, Starting [facility] 11/11/16 at | | | | | | | 1809, If oral route not an | | | | | | | option. Slow IV push, not faster | | | | | | | than 0.3mg/minute. First dose | | | | | | | must be lowest dose, titrate to | | | | | | | effective dose by repeat of | | | | | | | lowest dose every 30 minutes prn | | | | | | | pain, may not exceed maximum dose | | | | | | | ordered per interval. Use Pasero | | | | | | | Sedation Scale., Post-op/Phase | | | | | | | II | | | | | | + +-------+ +------+---+---+ +-------+ +--------+---+---+ | Given | 11/16/19 | 1 mg | | | | | 17 12:22 | | | | | | AM PDT | | | | +-------+ +--------+---+---+ | Given | 11/15/19 | 0.5 mg | | | | | 17 2:39 | | | | | | PM PDT | | | | +-------+ +--------+---+---+ +---+---+ | | | +---+---+ + +-------+ + +---+ + | insulin glargine (LANTUS | Given | 11/16/19 | 80 Units | | Arm-Left | | SOLOSTAR) 100 units/mL injection | | 17 8:58 | | | Upper | | (pen) 80 Units 80 Units, | | AM PDT | | | | | Subcutaneous, EVERY 12 HOURS (2 | | | | | | | times per day), First dose on Phyllis | | | | | | | 11/11/16 at 2100, For | | | | | | | subcutaneous use only. Basal | | | | | | | (long acting) insulin., | | | | | | | Post-op/Phase II | | | | | | + +-------+ + +---+ + +-------+ + +---+ + | Given | 11/15/19 | 80 Units | | Abdomen- | | | 17 8:15 | | | LUQ | | | PM PDT | | | | +-------+ + +---+ + | Given | 11/15/19 | 80 Units | | Leg-Left | | | 17 9:38 | | | Upper | | | AM PDT | | | | +-------+ + +---+ + +---+---+ | | | +---+---+ + +-------+ +---------+---+ + | insulin lispro (humaLOG | Given | 11/15/19 | 3 Units | | Abdomen- | | KWIKPEN) 100 units/mL injection | | 17 8:15 | | | LLQ | | (pen) 0-18 Units 0-18 Units, | | PM PDT | | | | | Subcutaneous, 4 TIMES DAILY WITH | | | | | | | MEALS & NIGHTLY, First dose on | | | | | | | Tue11/12/16 at 0800, CORRECTION | | | | | | [...] | | | | | | | [id number] Use NIGHT DOSE for | | | | | | | doses scheduled: HS, 3AM, | | | | | | | Nighttime [id number], | | | | | | + +-------+ +---------+---+ + +-------+ + +---+ + | Given | 11/15/19 | 6 Units | | Arm-Left | | | 17 5:30 | | | Upper | | | PM PDT | | | | +-------+ + +---+ + | Given | 11/15/19 | 12 Units | | Arm-Righ | | | 17 12:53 | | | t Upper | | | PM PDT | | | | +-------+ + +---+ + +---+---+ | | | +---+---+ + + + +---+ +---+ | lactated ringers (LR) infusion | Rate/Dos | 11/13/19 | | 50 mL/hr | | | at 100 mL/hr, Intravenous, | e Change | 17 5:43 | | | | | CONTINUOUS, Starting Phyllis 11/11/16 | | AM PDT | | | | | at 0915 | | | | | | + + + +---+ +---+ +---------+ +---+-------+---+ | New Bag | 11/12/19 | | 100 | | | | 17 6:40 | | mL/hr | | | | PM PDT | | | | +---------+ +---+-------+---+ | New Bag | 11/12/19 | | | | | | 17 3:18 | | | | | | PM PDT | | | | +---------+ +---+-------+---+ +---+---+ | | | +---+---+ + +-------+ +--------+---+---+ | lactulose liquid 30 mL 30 mL, | Given | 11/16/19 | 30 mLs | | | | Oral, 2 TIMES DAILY, First dose | | 17 8:56 | | | | | on Phyllis 11/11/16 at 2100, If | | AM PDT | | | | | docusate, senna, and polyethylene | | | | | | | glycol ineffective x 24 hours or | | | | | | | not ordered, Post-op/Phase II | | | | | | + +-------+ +--------+---+---+ +-------+ +--------+---+---+ | Given | 11/15/19 | 30 mLs | | | | | 17 8:04 | | | | | | PM PDT | | | | +-------+ +--------+---+---+ | Given | 11/15/19 | 30 mLs | | | | | 17 9:34 | | | | | | AM PDT | | | | +-------+ +--------+---+---+ +---+---+ | | | +---+---+ + +-------+ +-------+---+---+ | losartan (COZAAR) tablet 50 mg | Given | 11/16/19 | 50 mg | | | | 50 mg, Oral, DAILY, First dose | | 17 8:54 | | | | | on Phyllis 11/11/16 at 1830, | | AM PDT | | | | | Post-op/Phase II | | | | | | + +-------+ +-------+---+---+ +-------+ +-------+---+---+ | Given | 11/15/19 | 50 mg | | | | | 17 9:31 | | | | | | AM PDT | | | | +-------+ +-------+---+---+ | Given | 11/14/19 | 50 mg | | | | | 17 8:16 | | | | | | AM PDT | | | | +-------+ +-------+---+---+ +---+---+ | | | +---+---+ + +-------+ +--------+---+---+ | magnesium hydroxide (MILK OF | Given | 11/15/19 | 30 mLs | | | | MAGNESIA) 400 mg/5 mL suspension | | 17 3:49 | | | | | 30 mL 30 mL, Oral, NIGHTLY PRN, | | PM PDT | | | | | Constipation, Starting Sat | | | | | | | 11/13/16 at 0000, If docusate, | | | | | | | senna, and polyethylene glycol | | | | | | | ineffective x 24 hours or not | | | | | | | ordered, Post-op/Phase II | | | | | | + +-------+ +--------+---+---+ +---+---+ | | | +---+---+ + +-------+ +-------+---+---+ | oxyCODONE (ROXICODONE) tablet | Given | 11/16/19 | 20 mg | | | | 5-20 mg 5-20 mg, Oral, EVERY 4 | | 17 12:58 | | | | | HOURS PRN, Pain, Starting Phyllis | | PM PDT | | | | | 11/11/16 at 1809, Post-op/Phase II | | | | | | + +-------+ +-------+---+---+ +-------+ +-------+---+---+ | Given | 11/16/19 | 20 mg | | | | | 17 8:52 | | | | | | AM PDT | | | | +-------+ +-------+---+---+ | Given | 11/16/19 | 20 mg | | | | | 17 4:49 | | | | | | AM PDT | | | | +-------+ +-------+---+---+ +---+---+ | | | +---+---+ + +-------+ +------+---+---+ | polyethylene glycol (MIRALAX) | Given | 11/15/19 | 17 g | | | | powder 17 g 17 g, Oral, DAILY | | 17 3:49 | | | | | PRN, Leo, Starting Phyllis | | PM PDT | | | | | 11/11/16 at 1809, If docusate and | | | | | | | senna ineffective or not ordered, | | | | | | | Post-op/Phase II | | | | | | + +-------+ +------+---+---+ +---+---+ | | | +---+---+ + +-------+ +--------+---+---+ | senna (SENOKOT) tablet 8.6 mg | Given | 11/16/19 | 8.6 mg | | | | 8.6 mg, Oral, 2 TIMES DAILY, | | 17 8:54 | | | | | First dose on Phyllis 11/11/16 at | | AM PDT | | | | | 2100, If docusate ineffective or | | | | | | | not ordered, Post-op/Phase II | | | | | | + +-------+ +--------+---+---+ +-------+ +--------+---+---+ | Given | 11/15/19 | 8.6 mg | | | | | 17 8:04 | | | | | | PM PDT | | | | +-------+ +--------+---+---+ | Given | 11/15/19 | 8.6 mg | | | | | 17 9:31 | | | | | | AM PDT | | | | +-------+ +--------+---+---+ +---+---+ | | | +---+---+ documented in this encounter
--- OUTSIDE RECORDS SUMMARY | ~2020-02-04 | XMS | Encounter Summary ---
Demographics + + + | Address | [address] | | | [place] [address] | + + + | Home Phone | | + + + | Preferred Language | Unknown | + + + | Marital Status | | + + + | Church Affiliation | 1013 | + + + | Race | White | + + + | Ethnic Group | Not or | + + + Author + + + | Author | [facility] | | | and [place] | + + + | Organization | [facility] | | [...] [place] | | | | | [address] | | + + + + + | Leslie Lentz | ECON | Unknown | | + + + + + Care Team Providers + +------+ + | Care Clarifier Operator Name | Role | Phone | + +------+ + | Aggie Dunn NP | PCP | | + +------+ + Encounter Details +--------+ + + + + | Date | Type | Department | Care Team | Description | +--------+ + + + + | 02/13/ | Orders Only | [facility] | Conversion | | | 2017 | | INFECTIOUS DISEASE | Transaction, | | | | | [address] [facility] | Provider Unknown | | | | | [place], [place] | [phone] | | | | | [address] | | | | | | [phone] | | | +--------+ + + + [...] | EXTERNAL LAB: CBC | Routin | 02/13/2018 | | Results for this | | | e | 12:00 AM | | procedure are in the | | | | PDT | | results section. | + +--------+ + + + | SEDIMENTATION RATE, | Routin | 02/13/2018 | | Results for this | | AUTOMATED | e | 12:00 AM | | procedure are in the | | | | PDT | | results section. | + +--------+ + + + | C-REACTIVE PROTEIN | Routin | 02/13/2018 | | Results for this | | | e | 12:00 AM | | procedure are in the | | | | PDT | | results section. | + +--------+ + + + | COMPREHENSIVE | Routin | 02/13/2018 | | Results for this | | METABOLIC PANEL | e | 12:00 AM | | procedure are in the | | | | PDT | | results section. | + +--------+ + + + documented in this encounter Results Sedimentation rate, automated (02/13/2018 12:00 AM PDT) + +-------+ + + + | Component | Value | Ref Range | Performed | Pathologist | | | | | At | Signature | + +-------+ + + + | Sed Rate | 2 | 0 - 15 | EXTERNAL | [...] + +---------+ + + External Lab: CBC (02/13/2018 12:00 AM PDT) + + + + + + | Component | Value | Ref Range | Performed | Pathologist | | | | | At | Signature | + + + + + + | WBC | 5.6 | 10 | EXTERNAL | | | | | | LAB | | + + + + + + | Non- | 4.5 | 10 | EXTERNAL | | | Red Blood | | | LAB | | | Cells | | | | | | Counted | | | | | + + + + + + | Hemoglobin | 14.1 | g/dL | EXTERNAL | | | | | | LAB | | + + + + + + | Hematocrit, | 40.6 | % | EXTERNAL | | | POC | | | LAB | | + + + + + + | MCV | 90.6 | fL | EXTERNAL | | | | | | LAB | | + + + + + + | MCH | 31.5 | pg | EXTERNAL | | | | | | LAB | | + + + + + + | MCHC | 34.8 | g/dL | EXTERNAL | | | | | | LAB | | + + + + + + | Platelet | 120 (A) | 150 - 450 K/ L | EXTERNAL | | | Count | | | LAB | | | Plasma | | | | | + + + + + + | RDW-CV | 13.4 | % | EXTERNAL | | | | | | LAB | | + + + + + + | MPV | | fL | EXTERNAL | | | | | | LAB | | + + + + + + | Differentia | Manual | | EXTERNAL | | | l Type | | | LAB | | + + + + + + | % Segmented | 65.8 | % | EXTERNAL | | | | | | LAB | | | Neutrophils | | | | | + + + + + + | % | 21.4 (A) | 25 - 45 % | EXTERNAL | | | Lymphocytes | | | LAB | | + + + + + + | % Monocytes | 8.1 | % | EXTERNAL | | | | | | LAB | | + + + + + + | % | 3.8 (A) | 0 - 3 % | EXTERNAL | | | Eosinophils | | | LAB | | + + + + + + | % Basophils | 0.9 | % | EXTERNAL | | | | | | LAB | | + + + + + + | Absolute | 3.7 | / L | EXTERNAL | | | Segmented | | | LAB | | | Neutrophils | | | | | + + + + + + | Absolute | 1.2 | / L | EXTERNAL | | | Lymphocytes | | | LAB | | + + + + + + | Absolute | 0.5 | / L | EXTERNAL | | | Monocytes | | | LAB | | + + + + + + | Absolute | 0.2 | / L | EXTERNAL | | | Eosinophils | | | LAB | | + + + + + + | Absolute | 0.1 | / L | EXTERNAL | | [...] | + +---------+ + + C-Reactive Protein (02/13/2018 12:00 AM PDT) + +-------+ + + + | Component | Value | Ref Range | Performed | Pathologist | | | | | At | Signature | + +-------+ + + + | CRP | 1.9 | 0.1 - 8.2 mg/dL | EXTERNAL [...] + +---------+ + + Comprehensive Metabolic Panel (02/13/2018 12:00 AM PDT) + +---------+ + + + | Component | Value | Ref Range | Performed | Pathologist | | | | | At | Signature | + +---------+ + + + | Glucose, | 268 (A) | 84 - 110 mg/dL | EXTERNAL | | | Fasting | | | LAB | | + +---------+ + + + | BUN | 30 (A) | 8.4 - 21 mg/dL | EXTERNAL | | | | | | LAB | | + +---------+ + + + | Creatinine | 0.85 | mg/dL | EXTERNAL | | | | | | LAB | | + +---------+ + + + | BUN/Creatin | | | EXTERNAL | | | ine Ratio | | | LAB | | + +---------+ + + + | Calcium | 9.2 | mg/dL | EXTERNAL | | | | | | LAB | | + +---------+ + + + | Protein, | 6.4 | g/dL | EXTERNAL | | | Total | | | LAB | | + +---------+ + + + | Albumin | 3.8 | | EXTERNAL | | | | | | LAB | | + +---------+ + + + | Globulin | 2.6 | | EXTERNAL | | | | | | LAB | | + +---------+ + + + | A/G Ratio | 1.5 | | EXTERNAL | | | | | | LAB | | + +---------+ + + + | Bilirubin | 0.5 | mg/dL | EXTERNAL | | | Total | | | LAB | | + +---------+ + + + | ALP, | 106 | | EXTERNAL | | | External | | | LAB | | + +---------+ + + + | ALT | 16 | U/L | EXTERNAL | | | | | | LAB | | + +---------+ + + + | AST | 14 | U/L | EXTERNAL | | | | | | LAB | | + +---------+ + + + | Na | 136 | mmol/L | EXTERNAL | | | | | | LAB | | + +---------+ + + + | K | 4.4 | mmol/L | EXTERNAL | | | | | | LAB | | + +---------+ + + + | Cl | 100 | mmol/L | EXTERNAL | | | | | | LAB | | + +---------+ + + + | CO2 | 27 | mmol/L | EXTERNAL | | | | | | LAB | | + +---------+ + + + | Anion Gap | 9.0 | mmol/L | EXTERNAL | | | [...]
--- OUTSIDE RECORDS SUMMARY | ~2020-02-04 | XMS | Encounter Summary ---
Demographics + + + | Address | [address] | | | [place] [address] | + + + | Home Phone [...] Author + + + | Author | [facility] | | | and [place] | + + + | Organization | [facility] | | | [...] [place] | | | | | [address] | | + + + + + | Leslie Lentz | ECON | Unknown | | + + + + + Care Team Providers + +------+ + | Care Restoration Officer Name | Role | Phone | + +------+ + PCP | Unavailable | + +------+ + Encounter Details +--------+ + + + + | Date | Type | Department | Care Team | Description | +--------+ + + + + | 08/26/ | Hospital | [facility] | Eva Veronica, | Toxic Diffuse Goiter | | 2008 | Encounter | CONVERSION DEP [address] | RN RADIATION [address] | without Mention of | | | | [address] | [facility] | Thyrotoxic Crisis or | | | | [place], [place] | [place] [address] | Storm | | | | [address] | [phone] | | | | | [phone] | | | +--------+ + + + [...] | + +--------+ + + + | NM THYROID SCAN ONLY | Routin | 08/26/2008 | | Results for this | | | e | 12:26 PM | | procedure are in the | | | | PDT | | results section. | + +--------+ + + + documented in this encounter Results NM Thyroid Scan Only (08/26/2008 12:26 PM PDT) + + | Specimen | + + | | + + + + + | Narrative | Performed At | + + + | [id number] | | | Page 1 RADIOLOGY | | | / | | | O/P [facility] | | | NAME: [place] [address] | | | | | | | | | DATE OF : 1960 ORDER NUMBER: [id number] EXAM | | | DATE/TIME: 08/26/2008 07:46 A ORDERING PHYSICIAN: EVA VERONICA | | | S ORDER DETAIL: [id number] / / HNM EXAM DESCRIPTION: NM THYROID | | | IMAGING ONLY | | | | | | THYROID UPTAKE AND SCAN 08/26/2008 HISTORY Graves disease. | | | COMPARISON None. TECHNIQUE The patient received 402 microcuries | | | of iodine-123 in the form of oral capsules. Thyroid uptake was | | | measured at 4 hours and 24 hours and thyroid scan obtained in | | | anterior and anterior oblique projections. FINDINGS Thyroid | | | uptake at 4 hours is 16.0% and at 24 hours 31%. These values are | | | within the range of normal. Scan shows a symmetric gland with | | | homogeneous uptake. No autonomous nodules are seen and no cold | | | nodules. There is no substantial pyramidal lobe. IMPRESSION The | | | 24 hour thyroid uptake is 31%. The thyroid gland is homogeneous with | | | no autonomous nodules identified. Read by LORA BENITEZ MD | | | 08/27/2008 03:28 P Electronically Signed by LORA BENITEZ MD | | | 08/28/2008 03:46 P P | | | 07:53 P [facility]/[id number]/ cc: DHRUV DELAROSA | | | MD LORA HERNANDEZ MD BRUCE E | | | MD MAXIME | | + + + + + | Procedure Note | + + | Arnaldo, Rad Conversion - 12/18/2018 4:37 AM PDT | | [id number] Page 1 | | RADIOLOGY / | | O/P | | [facility] NAME: CARLOS LONG | | [place] [address] | | | | DATE OF : 1960 | | | | ORDER NUMBER: [id number] | | EXAM DATE/TIME: 08/26/2008 07:46 A | | ORDERING PHYSICIAN: EVA VERONICA | | ORDER DETAIL: [id number] / / HNM | | EXAM DESCRIPTION: NM THYROID IMAGING ONLY | | | | THYROID UPTAKE AND SCAN 08/26/2008 | | | | HISTORY | | Graves disease. | | | | COMPARISON | | None. | | | | TECHNIQUE | | The patient received 402 microcuries of iodine-123 in the form of oral | | capsules. Thyroid uptake was measured at 4 hours and 24 hours and | | thyroid scan obtained in anterior and anterior oblique projections. | | | | FINDINGS | | Thyroid uptake at 4 hours is 16.0% and at 24 hours 31%. These values are | | within the range of normal. | | | | Scan shows a symmetric gland with homogeneous uptake. No autonomous | | nodules are seen and no cold nodules. There is no substantial pyramidal | | lobe. | | | | IMPRESSION | | The 24 hour thyroid uptake is 31%. The thyroid gland is homogeneous with | | no autonomous nodules identified. | | | | Read by | | LORA BENITEZ MD 08/27/2008 03:28 P | | Electronically Signed by | | LORA BENITEZ MD 08/28/2008 03:46 P | | | | P | | P | | [facility]/[id number]/ | | cc: DHRUV DELAROSA | | LIBIA GUTIERREZ MD | | LORA BENITEZ MD | | BENITO SWARTZ MD | + + documented in this encounter Visit Diagnoses + + | Diagnosis | + + | Toxic diffuse goiter without mention of thyrotoxic crisis or storm | + + documented in this encounter"
--- OUTSIDE RECORDS SUMMARY | ~2020-02-04 | XMS | Encounter Summary ---
Demographics + + + | Address | [address] | | | [place] [address] | + + + | Home Phone | | + + + | Preferred Language | Unknown | + + + | Marital Status | | + + + | [employer] Affiliation | 1013 | + + + | Race | White | + + + | Ethnic Group | Not or | + + + Author + + + | Author | [facility] | | | and [place] | + + + | Organization | [facility] | | | [...] [place] | | | | | [address] | | + + + + + | Leslie Lentz | ECON | Unknown | | + + + + + Care Team Providers + +------+ + | Care Gluer And Slicer Hand Name | Role | Phone | + +------+ + | Paulo Rothman MD | PCP | | + +------+ + Reason for Visit + +--------+ + | Reason | Onset | Comments | | | Date | | + +--------+ + | Surgery Appointment | 12/13/ | presurgical check in time and instructions | | | 2018 | | + +--------+ + Encounter Details +--------+ + + + + | Date | Type | Department | Care Team | Description | +--------+ + + + + | 12/13/ | Telephone | [facility] | Kai Gillespie MD | Surgery Appointment | | 2018 | | NEUROSURGERY [address] | (presurgical check | | | | [address] | [place] [address] | in time and | | | | [place] | [phone] | instructions) | | | | [address] | | | | | | [phone] | | | +--------+ + + + [...] Encounter - Jacqueline Doan Cert MA - 12/13/2017 2:04 PM PDTAll presurgical jaclyn ck-in instructions given to patient. Surgery date: 12/15/17 Check-in Time: 6:00am (OR Schedule states procedure start time 0745) No solids or liquids after midnight the night before surgery. Follow the cleansing instructions provided beginning the night before surgery after you esme wer or bathe. No showering the morning of surgery. Please do not wear jewelry, contact lenses, nail maltese (on fingers or toes), or make-up to [...]
--- OUTSIDE RECORDS SUMMARY | ~2020-02-04 | XMS | Encounter Summary ---
Demographics + + + | Address | [address] | | | [place] [address] | + + + | Home Phone | | + + + | Preferred Language | Unknown | + + + | Marital Status | | + + + | Zoroastrianism Affiliation | 1013 | + + + | Race | White | + + + | Ethnic Group | Not or | + + + Author + + + | Author | [facility] | | | and [place] | + + + | Organization | [facility] | | | [...] [address] | | | | | [address] | | + + + + + | Leslie Lentz | ECON | Unknown | | + + + + + Care Team Providers + +------+ + | Care Lunch Wagon Operator Name | Role | Phone | + +------+ + PCP | Unavailable | + +------+ + Encounter Details +--------+ + + + + | Date | Type | Department | Care Team | Description | +--------+ + + + + | 08/26/ | Episode | [facility] | Jacqueline Doan, | | | 2017 | Changes | NEUROSURGERY [address] | [employer] | | | | | [address] | | | | | | [place] | | | | | | [address] | | | | | | [phone] | | | +--------+ + + + [...]
--- OUTSIDE RECORDS SUMMARY | ~2020-02-04 | XMS | Encounter Summary ---
Demographics + + + | Address | [address] | | | [place] [address] | + + + | Home Phone | | + + + | Preferred Language | Unknown | + + + | Marital Status | | + + + | Uatsdin Affiliation | CHR | + + + | Race | White | + + + | Ethnic Group | Not or | + + + Author + + + | Author | [facility] | + + + | Organization | [facility] | + + + | Address | Unknown | + + + | Phone | Unavailable | + + + Support + + +---------+ + | Name | Relationship | Address | Phone | + + +---------+ + | Leslie Lentz | ECON | Unknown | | + + +---------+ + Care Team Providers + +------+ + | Care After School Driver Name | Role | Phone | + +------+ + | Aggie Dunn INTERVENTION NURSE | PCP | | + +------+ + Reason for Visit + +--------+ + | Reason | Onset | Comments | | | Date | | + +--------+ + | Covid19 Screening | 12/05/ | | | | 2020 | | + +--------+ + Encounter Details +--------+ + + + + | Date | Type | Department | Care Team | Description | +--------+ + + + + | 12/05/ | Clinical | Preoperative | | Covid19 Screening | | 2020 | Support | Medicine Clinic at | | | | | Staff | [facility] | | | | | | [address] | | | | | | [facility] | | | | | | and [place], | | | | | | [address] | | | | | | [place], [place] | | | | | | [address] | | | | | | [phone] | | | +--------+ + + + [...] documented as of this encounter Progress Notes Yolanda Barth MA - 12/06/2019 11:25 AM PDT Patient meets criteria for asymptomatic COVID-19 testing 48 hours before their scheduled no n-elective surgery/procedure. Nasopharyngeal swab collected today at Preoperative Medicine Clinic at [facility].Tish ctronically signed by Yolanda Barth MA at 12/15/2019 10:41 AM PDTdocumented in this encounter Plan of Treatment [...] + documented in this encounter Results COVID-19, PCR (12/06/2019 11:33 AM PDT) + + [...] | | its performance characteristics determined by [facility] [place]. It | | | has not been [...] + + + + + | [facility] | [address] | [place] [address] | | | MICROBIOLOGY LAB | [address] | | | + + + + + | [facility] | [address] | [place], [place] | | | MICROBIOLIGY LAB | [address] | [address], [place] | | + + + + + documented in this encounter Visit Diagnoses + + | Diagnosis | + + | Encounter for screening for other viral diseases - Primary | + + documented in this encounter"
--- OUTSIDE RECORDS SUMMARY | ~2020-02-04 | XMS | Encounter Summary ---
Demographics + + + | Address | [address] | | | [place] [address] | + + + | Home Phone [...] [place] | | | | | [address] | | + + + + + | Leslie Lentz | ECON | Unknown | | + + + + + Care Team Providers + +------+ + | Care Microsoft Bi Architect Name | Role | Phone | + +------+ + | Aggie Dunn NP | PCP | | + +------+ + Encounter Details +--------+ + + + + | Date | Type | Department | Care Team | Description | +--------+ + + + + | 09/28/ | Imaging | [facility] | Provider, | | | 2019 | Exam | [facility] | MD [address] | | | | | IMAGING [address] | | | | | [address] | [place] [address] | | | | | [place] [address] | | | | | | [phone] | | | +--------+ + + + [...] LUMBAR SPINE 2 OR | Routin | 09/22/2018 | | Results for this | | 3 VW | e | 12:00 AM | | procedure are in the | | | | PDT | | results section. | + +--------+ + + + documented in this encounter Results XR Lumbar Spine 2 or 3 Vw (09/22/2018 12:00 AM PDT) + + | Specimen [...]
--- OUTSIDE RECORDS SUMMARY | ~2020-02-04 | XMS | Encounter Summary ---
Demographics + + + | Address | [address] | | | [place] [address] | + + + | Home Phone | | + + + | Preferred Language | Unknown | + + + | Marital Status | | + + + | Anglican Affiliation | 1013 | + + + | Race | White | + + + | Ethnic Group | Not or | + + + Author + + + | Author | [facility] | | | and [place] | + + + | Organization | [facility] | | | and [...] [place] | | | | | [address] | | + + + + + | Leslie Lentz | ECON | Unknown | | + + + + + Care Team Providers + +------+ + | Care Beauty Operator Apprentice Name | Role | Phone | + +------+ + PCP | Unavailable | + +------+ + Encounter Details +--------+ + + + + | Date | Type | Department | Care Team | Description | +--------+ + + + + | 11/09/ | Episode | [facility] [place] | [place], | | | 2017 | Changes | NEUROSURGERY [address] | [facility] | | | | | [address] | [address] | | | | | [place] | | | | | | [address] | | | | | | [phone] | | | +--------+ + + + [...]
--- OUTSIDE RECORDS SUMMARY | ~2020-02-04 | XMS | Encounter Summary ---
Demographics + + + | Address | [address] | | | [place] [address] | + + + | Home Phone | | + + + | Preferred Language | Unknown | + + + | Marital Status | | + + + | Evangelical Affiliation | 1013 | + + + | Race | White | + + + | Ethnic Group | Not or | + + + Author + + + | Author | [facility] | | | and [place] | + + + | Organization | [facility] | | [...] [place] | | | | | [address] | | + + + + + | Leslie Lentz | ECON | Unknown | | + + + + + Care Team Providers + +------+ + | Care Habitat Conservation Planner Name | Role | Phone | + +------+ + | Paulo Rothman MD | PCP | | + +------+ + Reason for Visit + +--------+ + | Reason | Onset | Comments | | | Date | | + +--------+ + | Surgery Appointment | 10/25/ | scheduling with General Surgery | | | 2017 | | + +--------+ + Encounter Details +--------+ + + + + | Date | Type | Department | Care Team | Description | +--------+ + + + + | 10/25/ | Telephone | [facility] [place] | Kai Gillespie MD | Surgery Appointment | | 2017 | | NEUR[address]URGERY [address] | [address] | (scheduling with | | | | [address] | [place] [address] | General Surgery) | | | | [place], [place] | [phone] | | | | | [address] | | | | | | [phone] | | | +--------+ + + + [...] this encounter Miscellaneous Notes Telephone Encounter - Ramona Lay RN - 11/30/2017 2:11 PM PDTDr. Godwin can do 12/15/17. PSR's please block clinic 8-12 on 12/15/17. Electronically signed by Ramona Lay RN at 2:13 PM PDTTelephone Encounter - Jacqueline Doan Cert MA - 11/30/2017 1:44 PM PD TCan this patient have the date of 12/15/17 for his ALIF with Dr. Connelly? This is a 5 hour elda e. elephone Annetta kimble - Abdiel Kingsley RN - 11/28/2017 8:[address] Connelly morning clinic block has been opened. Please let us know when this is rescheduled so that we can schedule to see in office again if needed prior to surgery. 8 :09 AM PDTTelephone Encounter - Sera Hernandez - 11/27/2017 1:51 PM PDTContacted Fredis to let him know that we are postponing his surgical date so that his case may be presented at the 11/30/17 multidisciplinary peer review. I let him know that we will contact him after the conference is completed to discuss a new surgical date which will include collaborating with general surgery, we are very sorry for the inconvenience. Fredis verbalized understanding . elephone Encounter - Christy Porras - 11/07/2017 10:34 AM PDTScheduled 11/08/[address] Connelly for Pr e OP to 11/29/17 elepho ne Encounter - Ramona Lay, RN - 11/01/2017 11:[address] Connelly on 8 at 0800. elephone En counter - Jacqueline Doan Cert MA - 10/25/2017 11:42 AM PDTPatient was seen today by Dr. Mecca castellano and would like to move forward with surgery. I am looking at a surgery date of 11/29/[address] Connelly. This will be for a L5-S1 ALIF, posterior hardware revision with illiac fixation. This is a 5 hour case. documented in this encounter Plan of Treatment Not on filedocumented as of this encounter Visit Diagnoses Not on filedocumented in this encounter"
--- OUTSIDE RECORDS SUMMARY | ~2020-02-04 | XMS | Encounter Summary ---
Demographics + + + | Address | [address] | | | [place] [address] | + + + | Home Phone | | + + + | Preferred Language | Unknown | + + + | Marital Status | | + + + | Yazidi Affiliation | 1013 | + + + | Race | White | + + + | Ethnic Group | Not or | + + + Author + + + | Author | [facility] | | | and [place] | + + + | Organization | [facility] | | | [...] [place] | | | | | [address] | | + + + + + | Leslie Lentz | ECON | Unknown | | + + + + + Care Team Providers + +------+ + | Care Analysis Manager Name | Role | Phone | + +------+ + PCP | Unavailable | + +------+ + Reason for Referral Diagnostic/Screening (Routine) +--------+--------+ + + + + | Status | Reason | Specialty | Diagnoses / | Referred By | Referred To | | | | | Procedures | Contact | Contact | +--------+--------+ + + + + | Closed | | | Diagnoses | Kai Gillespie | OP GOOD | | | | | S/P lumbar | MD [address] | [place] | | | | | fusion | [address] | MEDICAL | | | | | Right foot | [place], | [address] | | | | | drop | [place] [address] | NW | | | | | Procedures | Phone: | [place] | | | | | MRI Lumbar | [phone] | [address] | | | | | Spine wo | Fax: | Phone: | | | | | Contrast | [phone] | [phone] | | | | | | | Fax: | | | | | | | [phone] | +--------+--------+ + + + + Diagnostic/Screening (Routine) +--------+--------+ + + + + | Status | Reason | Specialty | Diagnoses / | Referred By | Referred To | | | | | Procedures | Contact | Contact | +--------+--------+ + + + + | Closed | | Radiology | Diagnoses | Kai Gillespie | [facility] | | | | | S/P lumbar | MD [address] | [place] | | | | | fusion | [address] | MEDICAL | | | | | Right foot | [place], | [address] | | | | | drop | [place] [address] | NW | | | | | Procedures | Phone: | [place] | | | | | CT Lumbar | [phone] | [address] | | | | | Spine wo | Fax: | Phone: | | | | | Contrast | [phone] | [phone] | | | | | | | Fax: | | | | | | | [phone] | +--------+--------+ + + + + Reason for Visit + + + | Reason | Comments | + + + | Follow-up | 9 month PO | + + + Encounter Details +--------+---------+ + + + | Date | Type | Department | Care Team | Description | +--------+---------+ + + + | 08/16/ | [facility] | Kai [facility]illes[facility] | S/P lumbar fusion | | 2018 | Visit | NEUROSURGERY [address] | [address] | (Primary Dx); Right | | | | [address] | [place] [address] | foot drop | | | | [place] | [phone] | | | | | [address] | | | | | | [phone] | | | +--------+---------+ + + + [...] + + + | Blood Pressure | 134/94 | 08/16/2017 1:22 PM | | | | | PDT | | + + + + + | Pulse | 81 | 08/16/2017 1:22 PM | | | | | PDT [...] + + + + | Weight | 125.6 kg (277 lb) | 08/16/2017 1:22 PM | | | | | PDT | | + + + + + | Height | 193 cm (6' 4") | 08/16/2017 1:22 PM | | | | | PDT | | + + + + + | Body Mass Index | 33.72 | 08/16/2017 1:22 PM | | | | | PDT [...] encounter Progress Notes Kai Gillespie MD - 08/16/2017 1:00 PM PDTFormatting of this note might be different from t he original. Kai Gillespie MD [address] [place] [address], [address] [place], [place] [id number] FAX: NEUROSURGERY FOLLOW-UP CHIEF COMPLAINT: Chief Complaint Patient presents with Follow-up 9 month PO HISTORY OF PRESENT ILLNESS: The patient is a 57 y.o. male that had a lumbar fusion for cali nosis and radiculopathy around 9 months ago. He returns and overall is doing okay. His raheem k pain is reduced from preoperatively but he continues to have some right foot weakness that has not improved. This has been relatively stable since surgery. His preoperative sciatic pain is relieved. The patient has been walking as much as directed. He is still taking pain medications at t his point and is considering an SCS for his residual pain. The patient has had no issues wi th his surgical site. CURRENT MEDICATIONS: Current Outpatient [...] present illness. In addition, the patient has change in walk. PSYCHIATRIC: No depression, no sleep disorders, no [...] rheumatoid arthritis. INTERIM PHYSICAL EXAMINATION: Blood pressure (!) 134/94, pulse 81, height 1.93 m (6' 4"), weight 125.6 kg (277 lb). Body mass index is 33.72 kg/m. GENERAL: Lele Mustafa is in no [...] and were reviewed with the patient today. His fusion is improved at L3-4 and L4-5 but is unclear at L5-S1. ASSESSMENT: Encounter Diagnoses Name Primary? S/P lumbar fusion Yes Right foot drop Past Medical History: Diagnosis Date Anxiety Depression Diabetes mellitus (HCC) Diabetes type 2, controlled (HCC) Graves disease Hearing deficit HTN (hypertension) Lumbar facet joint pain Lumbar radiculopathy MRSA (methicillin resistant Staphylococcus aureus) Peroneal neuropathy RLS (restless legs syndrome) Sleep apnea uses CPAP Vision disorder deficit Wears dentures upper PLAN: Overall, the patient is doing okay. Some of the preoperative symptoms are improved but his increasing weakness is concerning. I discussed options. I recommend we assess his lumbar region with a new CT and MRI. I will order those and review them. He will follow-up regarding the results. ELECTRONICALLY SIGNED BY: Kai Gillespie MD, 08/16/2017 13:53 documented in this encou nter Plan of Treatment + +---------+--------+ + + | Name | Type | Priori | Associated Diagnoses | Order Schedule | | | | ty | | | + +---------+--------+ + + | CT Lumbar Spine wo | Imaging | Routin | S/P lumbar fusion | Expected: | | Contrast | | e | Right foot drop | 08/16/2017, Expires: | | | | | | 08/16/2018 | + +---------+--------+ + + | MRI Lumbar Spine wo | Imaging | Routin | S/P lumbar fusion | Expected: 08/26/2017 | | Contrast | | e | Right foot drop | (Approximate), | | | | | | Expires: 08/15/2018 | + +---------+--------+ + + documented as of this encounter Visit Diagnoses + + | Diagnosis | + + | S/P lumbar fusion - Primary Arthrodesis status | + + | Right foot drop Other acquired deformity of ankle and foot | + + documented in this encounter
--- OUTSIDE RECORDS SUMMARY | ~2020-02-04 | XMS | Encounter Summary ---
Demographics + + + | Address | [address] | | | [place] [address] | + + + | Home Phone | | + + + | Preferred Language | Unknown | + + + | Marital Status | | + + + | Yazdanism Affiliation | 1013 | + + + | Race | White | + + + | Ethnic Group | Not or | + + + Author + + + | Author | [facility] | | | and [place] | + + + | Organization | [facility] | | | [...] [place] | | | | | [address] | | + + + + + | Leslie Lentz | ECON | Unknown | | + + + + + Care Team Providers + +------+ + | Care Clinic Mgr Name | Role | Phone | + +------+ + PCP | Unavailable | + +------+ + Encounter Details +--------+ + + + + | Date | Type | Department | Care Team | Description | +--------+ + + + + | 08/25/ | Abstract | [facility] | Sree Cunha | | | 2016 | | NEUROSURGERY [address] | [address] | | | | | [address] | [address] | | | | | [place], [place] | [place] | | | | | [address] | [address] | | | | | [phone] | | | +--------+ + + + [...]
--- OUTSIDE RECORDS SUMMARY | ~2020-02-04 | XMS | Encounter Summary ---
Demographics + + + | Address | [address] | | | [place] [address] | + + + | Home Phone | | + + + | Preferred Language | Unknown | + + + | Marital Status | | + + + | Mandaeism Affiliation | CHR | + + + | Race | White | + + + | Ethnic Group | Not or | + + + Author + + + | Author | [facility] | + + + | Organization | [facility] | + + + | Address | Unknown | + + + | Phone | Unavailable | + + + Support + + +---------+ + | Name | Relationship | Address | Phone | + + +---------+ + | Leslie Lentz | ECON | Unknown | | + + +---------+ + Care Team Providers + +------+ + | Care Delivery Professional Name | Role | Phone | + +------+ + | Aggie Dunn SHYANN | PCP | | + +------+ + Reason for Visit + +--------+ + | Reason | Onset | Comments | | | Date | | + +--------+ + | Telephone follow-up | 01/24/ | 01/17/[address] Ferguson | | | 2020 | | + +--------+ + Encounter Details +--------+ + + + + | Date | Type | Department | Care Team | Description | +--------+ + + + + | 01/24/ | Telephone | [facility] | Tammy Bagley, | Telephone follow-up | | 2020 | | [facility] at | [address] | (01/17/20 visit with | | | | Bart[address] | [address] | Dr. Ferguson) | | | | [address] | [place], [place] | | | | | [facility], [facility] | [address] | | | | | [place], [place] | [phone] | | | | | [address] | [...] Telephone Encounter - Tammy Bagley MD - 01/25/2020 8:[address] Ferguson 01/17/20 - patient doing well - retina attached MD Kaya Pereyra [facility]. documented in this encounter Plan of Treatment Not on filedocumented as of this encounter Visit Diagnoses Not on filedocumented in this encounter"
--- OUTSIDE RECORDS SUMMARY | ~2020-02-04 | XMS | Encounter Summary ---
Demographics + + + | Address | [address] | | | [place] [address] | + + + | Home Phone | | + + + | Preferred Language | Unknown | + + + | Marital Status | | + + + | Yazdanism Affiliation | 1013 | + + + | Race | White | + + + | Ethnic Group | Not or | + + + Author + + + | Author | [facility] | | | and [place] | + + + | Organization | [facility] | | | [...] [place] | | | | | [address] | | + + + + + | Leslie Lentz | ECON | Unknown | | + + + + + Care Team Providers + +------+ + | Care Fisheries Technical Officer Name | Role | Phone | [...] | | | | | [address] | [place] [address] | | | | | [place] [address] | | | | | | [phone] | | | +--------+ + + + [...] + +--------+ + + + | CT LUMBAR SPINE WO | Routin | 08/25/2017 | | Results for this | | CONTRAST | e | 2:15 PM | | procedure are in the | | | | PDT | | results section. | + +--------+ + + + documented in this encounter Results CT Lumbar Spine wo Contrast (08/25/2017 2:15 PM PDT) + + | Specimen | [...]
--- OUTSIDE RECORDS SUMMARY | ~2020-02-04 | XMS | Encounter Summary ---
Demographics + + + | Address | [address] | | | [place] [address] | + + + | Home Phone | | + + + | Preferred Language | Unknown | + + + | Marital Status | | + + + | Quaker Affiliation | 1013 | + + + | Race | White | + + + | Ethnic Group | Not or | + + + Author + + + | Author | [facility] | | | and [place] | + + + | Organization | [facility] | | [...] [place] | | | | | [address] | | + + + + + | Leslie Lentz | ECON | Unknown | | + + + + + Care Team Providers + +------+ + | Care Group Fitness Assistant Department Head Name | Role | Phone | + +------+ + | Paulo Rothman MD | PCP | | + +------+ + Reason for Visit + + + | Reason | Comments | + + + | Fever (9 Weeks To 74 | | | Years) | | + + + | Post-op Problem | | + + + Auth/Cert +--------+--------+ + + + + | Status | Reason | Specialty | Diagnoses / | Referred By | Referred To | | | | | Procedures | Contact | Contact | +--------+--------+ + + + + | | | | Diagnoses | | | | | | | | | | | | | | Postoperativ | | | | | | | e wound | | | | | | | infection, | | | | | | | subsequent | | | | | | | encounter | | | +--------+--------+ + + + + Encounter Details +--------+ + + + + | Date | Type | Department | Care Team | Description | +--------+ + + + + | 01/01/ | Hospital | [facility] | Jean Ramirez, | Postoperative wound | | 2018 - | Encounter | [facility] | [address] | infection, | | | | [address] | [place] | subsequent encounter | | 01/04/ | | [place] [address] | [phone] | (Primary Dx); Type | | 2018 | | [phone] | | 2 diabetes mellitus | | | | | Kai Dos Santos MD | with complication, | | | | | [address] | unspecified whether | | | | | [place] [address] | longwall foreman insulin | | | | | [phone] | use ([facility]); MRSA | | | | | | [...] + + + | Blood Pressure | 129/66 | 01/04/2018 8:56 AM | | | | | PDT | | + + + + + | Pulse | 90 | 01/04/2018 10:00 AM | | | | | PDT | | + + + + + | Temperature | 36.5 C (97.7 F) | 01/04/2018 8:56 AM | | | | | PDT | | + + + + + | Respiratory Rate | 16 | 01/04/2018 10:00 AM | | | | | PDT | | + + + + + | Oxygen Saturation | 96% | 01/04/2018 10:00 AM | | | | | PDT | | + + + + + | Inhaled Oxygen | - | - | | | Concentration | | | | + + + + + | Weight | 131.4 kg (289 lb 11 | 01/01/2018 5:15 AM | | | | oz) | PDT | | + + + + + | Height | 193 cm (6' 4") | 01/01/2018 5:15 AM | | | | | PDT | | + + + + + | Body Mass Index | 35.26 | 01/01/2018 5:15 AM | | | | | PDT [...] documented as of this encounter Discharge Summaries Sonia Garza PA-C - 01/04/2018 8:47 AM PDTFormatting of this note might be diffe rent from the original. DISCHARGE SUMMARY Pt. Name/Age/: Carlos Montez Ramsey 57 y.o. 1960 Date of Admission: 01/01/2018 Date of Discharge: 01/04/2018 Admitting Physician: Kai Dos Santos MD PCP: Paulo Rothman Discharging Physician: Benton Garaz PA-C Primary Discharge Dx: <principal problem not specified> Secondary Discharge Dx: Patient Active Problem List Diagnosis HTN (hypertension) Diabetes mellitus Lumbar facet joint pain Lumbar radiculopathy MRSA (methicillin resistant Staphylococcus aureus) Obesity (BMI 30-39.9) Anxiety Depression Graves disease Diabetes type 2, controlled Obstructive sleep apnea syndrome S/P lumbar fusion Right foot drop Foraminal stenosis of lumbar region Pseudoarthrosis of lumbar spine Reason for Admission (Brief): The patient is a 57 y.o.malethat had a lumbar about 14 da ys ago. Postoperatively he has been in [place] at [facility]. He had a spontaneous small ab dominal dehiscence about 9 days ago. This was managed conservatively. [facility] his lumbar sangita and his lumbar incisions on the left and right opening minimally. He has had increased pain and developed very mild redness around his in cisions since this was done. He was at [facility] in [place] where they reported him being septi c and needing emergent transfer. He arrived here non-toxic appearing. He reports no wound drainage. He denies any neurologic changes. Hiis right foot weakness is stable. From a rehab standpoint, he is pleased with his progress and has been mobilizing well and i ncreasingly better. Hospital Course, including Complications: The patient was admitted for wound dehiscence, wound care, IV abx and PT/OT. He had a lumb ar fusion completed without complication 2 weeks ago. PT's stay was eventful for posterior wound aspiration for serosanguinous fluid collection without organisms seen on aspirate. An terior small area of dehiscence was swabbed with pending Culture with gram positive cocci on initial report. PT has hx of MRSA and uncontrolled insulin dependent DM. He mobilized well . The patient was discharged home and will follow-up as an outpatient infusion of vancomyci n BID at [facility]. There were no cardiac issues, pulmonary issues, or evidence of DVT. Medications Reconciled upon Discharge are: Discharge Medications New Medications Details vancomycin IVPB 1.5 g Inject 1.5 g into the vein every 12 hours. Indications: Complicated Skin & Skin Structure Inf. caused by MRSA, Diabetes, Infection, dehiscence of surigical wound with MRSA and DM hx. Culture pending for gram positive cocci on abdominal incision Changed Medications Details cyclobenzaprine 10 mg tablet Take 0.5-1 tablets by mouth 3 times daily as needed for Muscle spasms. What changed: how much to take when to take this aka: FLEXERIL lactulose 10 g/15 mL solution Take 30 mLs by mouth 2 times daily. For constipation What changed: additional instructions oxyCODONE 10 MG Tabs Take 1-1.5 tablets by mouth every 4 hours as needed for Pain. EXEMPT What changed: medication strength how much to take additional instructions Unchanged Medications Details acetaminophen 500 mg tablet Take 500-1,000 mg by mouth every 8 hours as needed for Pain or Fever. aka: TYLENOL aspirin 81 mg EC tablet Take 81 mg by mouth Daily. cholecalciferol 2000 units Tabs Take 2,000 Units by mouth Daily. aka: VITAMIN D-[address] capsule Take 60 mg by mouth Daily. aka: CYMBALTA gabapentin 300 mg capsule Take 1 capsule by mouth 3 times daily. aka: NEURONTIN GLUCAGON EMERGENCY 1 MG injection Generic drug: glucagon Inject 1 mg into the muscle as needed (for blood sugar less than 60 and unresponsive). insulin lispro 100 units/mL injection (pen) Inject 0-15 Units under the skin nightly. Per sliding scale: 150-200= 0 units 201-250= 3 u nits 251-300= 6 units 301-350= 9 units 351-400= 12 units 401-999= 15 units aka: humaLOG KWIKPEN insulin lispro 100 units/mL injection (pen) Inject 3-18 Units under the skin 3 times daily (before meals). Per sliding scale: 150-200= 3 units 201-250= 6 units 251-300= 9 units 301-350= 12 units 351-400= 15 units 401-999= 18 u nits aka: humaLOG KWIKPEN LEVEMIR 100 units/mL injection (vial) Generic drug: insulin detemir Inject 80 Units under the skin 2 times daily. losartan-hydrochlorothiazide 50-12.5 MG per tablet Take 1 tablet by mouth Daily. aka: HYZAAR magnesium (as oxide) 250 MG tablet Take 250 mg by mouth Daily. metFORMIN 1000 MG tablet Take 1,000 mg by mouth 2 times daily (with breakfast & dinner). aka: GLUCOPHAGE potassium 99 mg tablet Take 99 mg by mouth Daily. Discontinued Medications amoxicillin-clavulanate 875-125 mg per tablet aka: AUGMENTIN bacitracin 500 UNIT/GM ointment Condition on Discharge: Stable Follow-Up Plans: Follow-up: at 4 week post op visit. Follow-up with primary care physician as needed. Diet: Resume home diet Activity: Continue to follow guidelines and precautions as previously discussed. Bracing: C Brace Electronically signed by: Benton Garza, 01/04/2018 8:49 [facility] documented in this encounter Discharge Instructions Instructions Sonia Garza PA-C - 01/04/2018Discharge Instructions for Lumbar Fusi on You had a lumbar fusion. During this [...] month post op appointment before your appointment. [id number] [employer]. [address] [place] [address]. All righ ts reserved. This information is [...] | | | | | | | [id number]= 3 | | | | | | | -363= 6 | | | | | | | [id number]= 9 | | | | | | | [id number]= 12 | | | | | | | [id number]= 15 | | | | | | [...] | | | | | | | [id number]= 6 | | | | | | | [id number]= 9 | | | | | | | plbqu151-505= 12 | | | | | | | [id number]= 15 | | | | | | | [id number]= 18 | | | | | | [...] + + +---------+ + + | oxyCODONE 10 MG | Take 1-1.5 tablets | 120 | 0 | 01/05/20 | | | TABS | by mouth every 4 | tablet | | 18 | 8 | | | hours as needed for | | | | | | | Pain. EXEMPT | | | | | + + + +---------+ + + documented as of this encounter Progress Sonia Tejeda PA-C - 01/04/2018 8:09 AM PDTFormatting of this note might be diffe rent from the original. [facility] NEUROSURGERY PROGRESS NOTE PATIENT NAME: Carlos Long AGE: 57 y.o. DATE OF SERVICE: 01/04/2018 8:09 S: The patient c/o manageable back pain. The patient has been mobilizing well and is antic ipating DC home today with outpatient infusion X 4 weeks BID. Persistent right foot drop fr om a previous back surgery is unchanged. PT/OT has released him to discharge home. Swab from anterior wound shows 1+ gram positive cocci. Culture and sensitivity pending. The patient has been voiding and had a bowel movement. O: CURRENT MEDICATIONS: Current Facility-Administered Medications Medication Dose Route Frequency Provider Last Rate Last Dose acetaminophen (TYLENOL) tablet 650 mg 650 mg Oral Q4H PRN Kai Dos Santos MD 650 mg at 01/04/18 0447 aluminum & magnesium hydroxide-simethicone (MAALOX PLUS REGULAR STRENGTH) 200-200-20 mg /5 mL suspension 30 mL 30 mL Oral Q6H PRN Kai Dos Santos MD aspirin EC tablet 81 mg 81 mg Oral Daily Kai Dos Santos MD 81 mg at 01/03/18 0814 bisacodyl (DULCOLAX) suppository 10 mg 10 mg Rectal Daily PRN Kai Dos Santos MD calcium carbonate (TUMS) chewable tablet 1,000 mg 1,000 mg Oral Q2H PRN Abel Meyer cefepime (MAXIPIME) 2 g in sodium chloride 0.9% 50 mL IVPB 2 g Intravenous 2 times per day Kai Dos Santos MD 100 mL/hr at 01/04/18 0527 2 g at 01/04/18 0527 cholecalciferol (VITAMIN D-3) tablet 2,000 Units 2,000 Units Oral Daily Abel Meyer 2,000 Units at 01/03/18 0814 cyclobenzaprine (FLEXERIL) tablet 10 mg 10 mg Oral Q8H PRN Kai Dos Santos MD 10 mg at 01/03/18 0509 dextrose 50% injection 12.5 g 12.5 g Intravenous PRN Kai Dos Santos MD diphenhydrAMINE (BENADRYL) injection 12.5 mg 12.5 mg Intravenous Q4H PRN Kai Dos Santos MD Or diphenhydrAMINE (BENADRYL) tablet 25 mg 25 mg Oral Q4H PRN Kai Dos Santos MD Or diphenhydrAMINE (BENADRYL) 12.5 mg/5 mL liquid 25 mg 25 mg Oral Q4H PRN Abel Meyer docusate sodium (COLACE) capsule 100 mg 100 mg Oral BID Kai Dos Santos MD 100 mg at 2057 DULoxetine (CYMBALTA) DR capsule 60 mg 60 mg Oral Daily Kai Dos Santos MD 60 mg at 03/12 0813 enoxaparin (LOVENOX) 40 mg/0.4 mL injection 40 mg 40 mg Subcutaneous Daily Kai Dos Santos MD 40 mg at 01/03/18 0814 famotidine (PEPCID) tablet 20 mg 20 mg Oral BID Kai Dos Santos MD 20 mg at 01/03/18 20 58 gabapentin (NEURONTIN) capsule 300 mg 300 mg Oral TID Kai Dos Santos MD 300 mg at 12/24 hydroCHLOROthiazide tablet 12.5 mg 12.5 mg Oral Daily Kai Dos Santos MD 12.5 mg at 03/12 08 HYDROmorphone (DILAUDID) injection 0.2-0.4 mg 0.2-0.4 mg Intravenous Q2H PRN Kai Robledo am, MD insulin glargine (LANTUS SOLOSTAR) 100 units/mL injection (pen) 40 Units 40 Units Subc utaneous 2 times per day Kai Dos Santos MD 40 Units at 01/03/182127 insulin lispro (humaLOG KWIKPEN) 100 units/mL injection (pen) 0-18 Units 0-18 Units Villeda bcutaneous 4x Daily WC and HS Kai Dos Santos MD 6 Units at 01/03/18 1156 lactulose liquid 30 mL 30 mL Oral BID PRN Kai Dos Santos MD losartan (COZAAR) tablet 50 mg 50 mg Oral Daily Kai Dos Santos MD 50 mg at 01/03/18 08 13 magnesium hydroxide (MILK OF MAGNESIA) 400 mg/5 mL suspension 30 mL 30 mL Oral Nightly PRN Kai Dos Santos MD magnesium oxide (MAG-OX) tablet 200 mg 200 mg Oral Daily Kai Dos Santos MD 200 mg at 0 01/03/18 0812 menthol (HALLS COUGH DROP) lozenge 1 lozenge 1 lozenge Buccal Q2H PRN Kai Dos Santos MD metFORMIN (GLUCOPHAGE) tablet 1,000 mg 1,000 mg Oral BID WC Kai Dos Santos MD 1,000 mg at 01/03/18 1642 methocarbamol (ROBAXIN) tablet 1,500 mg 1,500 mg Oral Q6H PRN Kai Dos Santos MD 1,500 mg at 01/03/18 0813 metoclopramide (REGLAN) 5 mg/mL injection 10 mg 10 mg Intravenous Q4H PRN Kai Dos Santos MD metoclopramide (REGLAN) tablet 10 mg 10 mg Oral Q4H PRN Kai Dos Santos MD ondansetron (ZOFRAN ODT) disintegrating tablet 4 mg 4 mg Oral Q6H PRN Kai Dos Santos MD ondansetron (ZOFRAN) injection 4 mg 4 mg Intravenous Q6H PRN Kai Dos Santos MD oxyCODONE (ROXICODONE) tablet 5-20 mg 5-20 mg Oral Q4H PRN Kai Dos Santos MD 15 mg at 01/04/18 0447 phenol (CHLORASEPTIC) spray 1-2 spray 1-2 spray Mouth/Throat Q3H PRN Kai Dos Santos MD polyethylene glycol (MIRALAX) powder 17 g 17 g Oral Daily PRN Kai Dos Santos MD potassium chloride (KLOR-CON) ER tablet 5 mEq 5 mEq Oral Daily Kai Dos Santos MD 5 mEq at 01/03/18 0812 prochlorperazine (COMPAZINE) tablet 10 mg 10 mg Oral Q6H PRN Kai Dos Santos MD senna (SENOKOT) tablet 8.6 mg 8.6 mg Oral QAM Kai Dos Santos MD 8.6 mg at 01/03/18 081 3 sodium chloride 0.9% (NS) infusion Intravenous Continuous Kai Dos Santos MD Stopped a t 01/03/18 0854 ALLERGIES: Allergies Allergen Reactions Codeine Other (See Comments) "makes my skin crawl" Morphine Swelling Joint swelling PHYSICAL EXAMINATION: Temp: [36.3 C (97.3 F)-37 C (98.6 F)] 37 C (98.6 F) Pulse: [94-96] 94 Resp: [18] 18 BP: (133-140)/(70-81) 140/70 Intake/Output Summary (Last 24 hours) at 01/04/18 0809 Last data filed at 01/04/18 0600 Gross per 24 hour Intake 2809 ml Output 600 ml Net 2209 ml GENERAL: Carlos Long is in no acute distress with unlabored respirations. HEENT: HEAD/FACE: EYES: Normocephalic and atraumatic. There are no areas of recent trauma. Normal sclerae without icterus. CHEST: Clear. HEART: Regular. ABDOMEN Soft and nondistended. EXTREMITIES: No edema or swelling. SCD's BACK: Dressing and C brace intact NEUROLOGICAL EXAM: MENTAL STATUS: The patient is awake, alert, and oriented. He follows simple and complex commands. He speech is fluent, his comprehends speech well, and his repeats well. He has no apparent deficits with short or penitentiary memory. MOTOR EXAM: Motor strength is stable. Ongoing right foot drop right side. SENSORY EXAM: Sensory exam is stable 24 HOUR LABS: All Component Based Labs 01/02/18 0608 01/02/18 0607 01/02/18 0254 01/01/18 2049 01/01/18 1633 ALBUMIN 2.8(L) Albumin/Globulin ratio 1.0 ALK PHOS 98 ALT (SGPT) (REF) 12 ANION GAP 6 AST (SGOT) (REF) 13 % Basophils 0.4 Absolute Basophils 0.00 Bilirubin Total (Calculated) 0.9 BUN 9 BUN/CREA 16.4 Calcium 8.4 Chloride 101 Carbon dioxide 29 Creatinine 0.55(L) EGFR IF NOT >60 Comment: GLOMERULAR FILTRATION RATE,ESTIMATED mL/min/1.73m2 Less than 60 Chronic kidney disease,if found over a 3-month period. Less than 15 Kidney failure For Americans,multiply the calculated GFR by 1.21. % Eosinophils 1.3 Absolute Eosinophils 0.10 GLOBULIN 2.8 GLUCOSE 197(H) Hct, Final 37.2(L) Hgb 12.8(L) K 3.9 % Lymphocytes 13.4(L) Absolute Lymphocytes 1.20 MCH 31.7 MCHC 34.5 MCV 92.0 % Monocytes 8.8 Absolute Monocytes 0.80 MPV 9.4 NA 136 % Neutrophils 76.1 Absolute Neutrophils 6.60 Platelet Count 188 Glucose, POC 143(H) 173(H) 208(H) RBC COUNT 4.05(L) RDW-CV 13.4 Total protein 5.6(L) WBC 8.7 01/01/18 1207 01/01/18 0810 ALBUMIN Albumin/Globulin ratio ALK PHOS ALT (SGPT) (REF) ANION GAP AST (SGOT) (REF) % Basophils Absolute Basophils Bilirubin Total (Calculated) BUN BUN/CREA Calcium Chloride Carbon dioxide Creatinine EGFR IF NOT % Eosinophils Absolute Eosinophils GLOBULIN GLUCOSE Hct, Final Hgb K % Lymphocytes Absolute Lymphocytes MCH MCHC MCV % Monocytes Absolute Monocytes MPV NA % Neutrophils Absolute Neutrophils Platelet Count Glucose, POC 168(H) 102 RBC COUNT RDW-CV Total protein WBC ASSESSMENT: NEUROSURGICAL DIAGNOSES: S/p lumbar fusion Wound dehiscence with drainage MRSA history DM HOSPITAL/GENERAL DIAGNOSES: Past Medical History: Diagnosis Date [...] pain control is appropriate. - Medically stable. DM is being addressed. Wound culture pending with 1+ gram positive chris ci. - Mobilize, PT/OT released to DC home. - SCD's - Patient is having adequate bowel function without any concerns. - No drain is present. 2 weeks post op with readmission for wound dehiscence. - Disp: DC home today with out patient infusion BID at [facility]. PICC to be placed at [facility]. ELECTRONICALLY SIGNED BY: Benton Garza PA-C, 01/04/2018 8:09 Jamila Spivey RN - 01/04/2018 5:06 AM PDTPt struggling spiritually re: 's alzheimer's and [place] not providing the healing that pt is praying for. Very tearful, difficult to console Sonia Ware PA-C - 01/03/2018 8:31 AM PDTForm atting of this note might be different from the original. [facility] NEUROSURGERY PROGRESS NOTE PATIENT NAME: Carlos Long AGE: 57 y.o. DATE OF SERVICE: 01/03/2018 8:31 S: The patient c/o manageable back pain. The patient has been mobilizing well and but repo rts frequent ambulation with walker while at [facility]. HE would like to have IV saline gisele d for easier mobility when not in use. Persistent right foot drop from a previous back surg ian is unchanged. PT/OT continue to recommend therapy. PT reports feeling a pop in his left LB when going down for xrays yesterday resulting in Increased left LBP since then. The patient has been voiding and had a bowel movement. O: CURRENT MEDICATIONS: Current Facility-Administered Medications Medication Dose Route Frequency Provider Last Rate Last Dose acetaminophen (TYLENOL) tablet 650 mg 650 mg Oral Q4H PRN Kai Dos Santos MD 650 mg at 01/03/18 0445 aluminum & magnesium hydroxide-simethicone (MAALOX PLUS REGULAR STRENGTH) 200-200-20 mg /5 mL suspension 30 mL 30 mL Oral Q6H PRN Kai Dos Santos MD aspirin EC tablet 81 mg 81 mg Oral Daily Kai Dos Santos MD 81 mg at 01/03/18 0814 bisacodyl (DULCOLAX) suppository 10 mg 10 mg Rectal Daily PRN Kai Dos Santos MD calcium carbonate (TUMS) chewable tablet 1,000 mg 1,000 mg Oral Q2H PRN Abel Meyer cefepime (MAXIPIME) 2 g in sodium chloride 0.9% 50 mL IVPB 2 g Intravenous 2 times per day Kai Dos Santos MD 100 mL/hr at 01/03/18 0451 2 g at 01/03/18 0451 cholecalciferol (VITAMIN D-3) tablet 2,000 Units 2,000 Units Oral Daily Abel Meyer 2,000 Units at 01/03/18 0814 cyclobenzaprine (FLEXERIL) tablet 10 mg 10 mg Oral Q8H PRN Kai Dos Santos MD 10 mg at 01/03/18 0509 dextrose 50% injection 12.5 g 12.5 g Intravenous PRN Kai Dos Santos MD diphenhydrAMINE (BENADRYL) injection 12.5 mg 12.5 mg Intravenous Q4H PRN Kai Dos Santos MD Or diphenhydrAMINE (BENADRYL) tablet 25 mg 25 mg Oral Q4H PRN Kai Dos Santos MD Or diphenhydrAMINE (BENADRYL) 12.5 mg/5 mL liquid 25 mg 25 mg Oral Q4H PRN Abel Meyer docusate sodium (COLACE) capsule 100 mg 100 mg Oral BID Kai Dos Santos MD 100 mg at 08 DULoxetine (CYMBALTA) DR capsule 60 mg 60 mg Oral Daily Kai Dos Santos MD 60 mg at 03/12 08 enoxaparin (LOVENOX) 40 mg/0.4 mL injection 40 mg 40 mg Subcutaneous Daily Kai Dos Santos MD 40 mg at 01/03/18 0814 famotidine (PEPCID) tablet 20 mg 20 mg Oral BID Kai Dos Santos MD 20 mg at 01/03/18 08 12 gabapentin (NEURONTIN) capsule 300 mg 300 mg Oral TID Kai Dos Santos MD 300 mg at 12/24 05/12 08 hydroCHLOROthiazide tablet 12.5 mg 12.5 mg Oral Daily Kai Dos Santos MD 12.5 mg at 03/12 08 HYDROmorphone (DILAUDID) injection 0.2-0.4 mg 0.2-0.4 mg Intravenous Q2H PRN Kai Robledo am, MD insulin glargine (LANTUS SOLOSTAR) 100 units/mL injection (pen) 40 Units 40 Units Subc utaneous 2 times per day Kai Dos Santos MD 40 Units at 01/03/18 08 insulin lispro (humaLOG KWIKPEN) 100 units/mL injection (pen) 0-18 Units 0-18 Units Villeda bcutaneous 4x Daily WC and HS Kai Dos Santos MD 3 Units at 01/02/18 1721 lactulose liquid 30 mL 30 mL Oral BID PRN Kai Dos Santos MD losartan (COZAAR) tablet 50 mg 50 mg Oral Daily Kai Dos Santos MD 50 mg at 01/03/18 08 13 magnesium hydroxide (MILK OF MAGNESIA) 400 mg/5 mL suspension 30 mL 30 mL Oral Nightly PRN Kai Dos Santos MD magnesium oxide (MAG-OX) tablet 200 mg 200 mg Oral Daily Kai Dos Santos MD 200 mg at 0 01/03/18 08 menthol (HALLS COUGH DROP) lozenge 1 lozenge 1 lozenge Buccal Q2H PRN Kai Dos Santos MD metFORMIN (GLUCOPHAGE) tablet 1,000 mg 1,000 mg Oral BID WC Kai Dos Santos MD 1,000 mg at 01/03/18 08 methocarbamol (ROBAXIN) tablet 1,500 mg 1,500 mg Oral Q6H PRN Kai Dos Santos MD 1,500 mg at 01/03/18 08 metoclopramide (REGLAN) 5 mg/mL injection 10 mg 10 mg Intravenous Q4H PRN Kai Dos Santos MD metoclopramide (REGLAN) tablet 10 mg 10 mg Oral Q4H PRN Kai Dos Santos MD ondansetron (ZOFRAN ODT) disintegrating tablet 4 mg 4 mg Oral Q6H PRN Kai Dos Santos MD ondansetron (ZOFRAN) injection 4 mg 4 mg Intravenous Q6H PRN Kai Dos Santos MD oxyCODONE (ROXICODONE) tablet 5-20 mg 5-20 mg Oral Q4H PRN Kai Dos Santos MD 15 mg at 01/03/18 0445 phenol (CHLORASEPTIC) spray 1-2 spray 1-2 spray Mouth/Throat Q3H PRN Kai Dos Santos MD polyethylene glycol (MIRALAX) powder 17 g 17 g Oral Daily PRN Kai Dos Satnos MD potassium chloride (KLOR-CON) ER tablet 5 mEq 5 mEq Oral Daily Kai Dos Santos MD 5 mEq at 01/03/18 0812 prochlorperazine (COMPAZINE) tablet 10 mg 10 mg Oral Q6H PRN Kai Dos Santos MD senna (SENOKOT) tablet 8.6 mg 8.6 mg Oral QAM Kai Dos Santos MD 8.6 mg at 01/03/18 081 3 sodium chloride 0.9% (NS) infusion Intravenous Continuous Kai Dos Santos MD 75 mL/hr at 01/03/18 0443 990 mL at 01/03/18 0443 ALLERGIES: Allergies Allergen Reactions Codeine Other (See Comments) "makes my skin crawl" Morphine Swelling Joint swelling PHYSICAL EXAMINATION: Temp: [36.2 C (97.2 F)-37.3 C (99.1 F)] 36.8 C (98.2 F) Pulse: [84-100] 86 Resp: [16-20] 18 BP: (116-142)/(62-89) 142/81 Intake/Output Summary (Last 24 hours) at 01/03/18 0831 Last data filed at 01/03/18 0600 Gross per 24 hour Intake 3160 ml Output 1950 ml Net 1210 ml GENERAL: Carlos Long is in no acute distress with unlabored respirations. HEENT: HEAD/FACE: EYES: Normocephalic and atraumatic. There are no areas of recent trauma. Normal sclerae without icterus. CHEST: Clear. HEART: Regular. ABDOMEN Soft and nondistended. EXTREMITIES: No edema or swelling. SCD's BACK: Wound checked with nurse this morning. Posterior wound without drainage, steristrips intact right side. Left side shows prominent fullness with possible recurrent seroma witho ut wound dehiscence. Anterior wound with 1.5 inch area small dehiscence in the lower incisio n area w/suspicious discharge that was swabbed for culture. C brace intact NEUROLOGICAL EXAM: MENTAL STATUS: The patient is awake, alert, and oriented. He follows simple and complex commands. He speech is fluent, his comprehends speech well, and his repeats well. He has no apparent deficits with short or longwall foreman memory. MOTOR EXAM: Motor strength is stable. Ongoing right foot drop right side. SENSORY EXAM: Sensory exam is stable 24 HOUR LABS: All Component Based Labs 01/02/18 0608 01/02/18 0607 01/02/18 0254 01/01/18 2049 01/01/18 1633 ALBUMIN 2.8(L) Albumin/Globulin ratio 1.0 ALK PHOS 98 ALT (SGPT) (REF) 12 ANION GAP 6 AST (SGOT) (REF) 13 % Basophils 0.4 Absolute Basophils 0.00 Bilirubin Total (Calculated) 0.9 BUN 9 BUN/CREA 16.4 Calcium 8.4 Chloride 101 Carbon dioxide 29 Creatinine 0.55(L) EGFR IF NOT >60 Comment: GLOMERULAR FILTRATION RATE,ESTIMATED mL/min/1.73m2 Less than 60 Chronic kidney disease,if found over a 3-month period. Less than 15 Kidney failure For Americans,multiply the calculated GFR by 1.21. % Eosinophils 1.3 Absolute Eosinophils 0.10 GLOBULIN 2.8 GLUCOSE 197(H) Hct, Final 37.2(L) Hgb 12.8(L) K 3.9 % Lymphocytes 13.4(L) Absolute Lymphocytes 1.20 MCH 31.7 MCHC 34.5 MCV 92.0 % Monocytes 8.8 Absolute Monocytes 0.80 MPV 9.4 NA 136 % Neutrophils 76.1 Absolute Neutrophils 6.60 Platelet Count 188 Glucose, POC 143(H) 173(H) 208(H) RBC COUNT 4.05(L) RDW-CV 13.4 Total protein 5.6(L) WBC 8.7 01/01/18 1207 01/01/18 0810 ALBUMIN Albumin/Globulin ratio ALK PHOS ALT (SGPT) (REF) ANION GAP AST (SGOT) (REF) % Basophils Absolute Basophils Bilirubin Total (Calculated) BUN BUN/CREA Calcium Chloride Carbon dioxide Creatinine EGFR IF NOT % Eosinophils Absolute Eosinophils GLOBULIN GLUCOSE Hct, Final Hgb K % Lymphocytes Absolute Lymphocytes MCH MCHC MCV % Monocytes Absolute Monocytes MPV NA % Neutrophils Absolute Neutrophils Platelet Count Glucose, POC 168(H) 102 RBC COUNT RDW-CV Total protein WBC ASSESSMENT: NEUROSURGICAL DIAGNOSES: S/p lumbar fusion Wound dehiscence with drainage HOSPITAL/GENERAL DIAGNOSES: Past Medical History: Diagnosis Date [...] pain control is appropriate. - Medically stable. DM is being addressed. PT on Maxipime. Wounds assessed to day with alexander se redressing. Posterior wound without sign of infection but left paraspinal hay than ri ght side with possible seroma recurrence. Anterior incision shows possible local area of in fection at site of small incisional dehiscence. Swabbed with C &S ordered. - Mobilize, PT/OT. IV ordered with Saline lock when not in use. - SCD's - Patient is having adequate bowel function without any concerns. - No drain is present. 2 weeks post op with readmission for wound dehiscence. - Disp: abx and PT/OT then hopefully DC home ELECTRONICALLY SIGNED BY: Benton Garza PA-C, 01/03/2018 8:31 utSonia martin PA-C - 018 7:36 AM PDT [facility] NEUROSURGERY PROGRESS NOTE PATIENT NAME: Carlos Long AGE: 57 y.o. DATE OF SERVICE: 01/02/2018 7:36 S: The patient c/o manageable back pain. The patient has been mobilizing well and reports frequent ambulation with walker while at [facility]. Persistent right foot drop from a previou s back surgery is unchanged. The patient has been voiding and had a bowel movement. O: CURRENT MEDICATIONS: Current Facility-Administered Medications Medication Dose Route Frequency Provider Last Rate Last Dose acetaminophen (TYLENOL) tablet 650 mg 650 mg Oral Q4H PRN aKi Dos Santos MD aluminum & magnesium hydroxide-simethicone (MAALOX PLUS REGULAR STRENGTH) 200-200-20 mg /5 mL suspension 30 mL 30 mL Oral Q6H PRN Kai Dos Santos MD aspirin EC tablet 81 mg 81 mg Oral Daily Kai Dos Santos MD 81 mg at 01/01/18818 bisacodyl (DULCOLAX) suppository 10 mg 10 mg Rectal Daily PRN Kai Dos Santos MD calcium carbonate (TUMS) chewable tablet 1,000 mg 1,000 mg Oral Q2H PRN Abel Meyer cefepime (MAXIPIME) 2 g in sodium chloride 0.9% 50 mL IVPB 2 g Intravenous 2 times per day Kai Dos Santos MD 100 mL/hr at 01/02/18 050 2 g at 01/02/18508 cholecalciferol (VITAMIN D-3) tablet 2,000 Units 2,000 Units Oral Daily Abel Meyer 2,000 Units at 01/01/18811 cyclobenzaprine (FLEXERIL) tablet 10 mg 10 mg Oral Q8H PRN Kai Dos Santos MD 10 mg at 01/01/182057 dextrose 50% injection 12.5 g 12.5 g Intravenous PRN Kai Dos Santos MD diphenhydrAMINE (BENADRYL) injection 12.5 mg 12.5 mg Intravenous Q4H PRN Kai Dos Santos MD Or diphenhydrAMINE (BENADRYL) tablet 25 mg 25 mg Oral Q4H PRN Kai Dos Santos MD Or diphenhydrAMINE (BENADRYL) 12.5 mg/5 mL liquid 25 mg 25 mg Oral Q4H PRN Abel Meyer docusate sodium (COLACE) capsule 100 mg 100 mg Oral BID Kai Dos Santos MD 100 mg at 2057 DULoxetine (CYMBALTA) DR capsule 60 mg 60 mg Oral Daily Kai Dos Santos MD 60 mg at 01/10 enoxaparin (LOVENOX) 40 mg/0.4 mL injection 40 mg 40 mg Subcutaneous Daily Kai Dos Santos MD 40 mg at 01/02/18 06 famotidine (PEPCID) tablet 20 mg 20 mg Oral BID Kai Dos Santos MD 20 mg at 01/01/18 gabapentin (NEURONTIN) capsule 300 mg 300 mg Oral TID Kai Dos Santos MD 300 mg at 01/10 hydroCHLOROthiazide tablet 12.5 mg 12.5 mg Oral Daily Kai Dos Santos MD 12.5 mg at 01/10 08 HYDROmorphone (DILAUDID) injection 0.2-0.4 mg 0.2-0.4 mg Intravenous Q2H PRN Kai Robledo am, MD insulin glargine (LANTUS SOLOSTAR) 100 units/mL injection (pen) 40 Units 40 Units Subc utaneous 2 times per day Kai Dos Santos MD 40 Units at 01/01/182058 insulin lispro (humaLOG KWIKPEN) 100 units/mL injection (pen) 0-18 Units 0-18 Units Villeda bcutaneous 4x Daily WC and HS Kai Dos Santos MD 6 Units at 01/01/18 1744 lactulose liquid 30 mL 30 mL Oral BID PRN Kai Dos Santos MD losartan (COZAAR) tablet 50 mg 50 mg Oral Daily Kai Dos Santos MD 50 mg at 01/01/18 08 19 [START ON 01/03/2018] magnesium hydroxide (MILK OF MAGNESIA) 400 mg/5 mL suspension 30 m L 30 mL Oral Nightly PRN Kai Dos Santos MD magnesium oxide (MAG-OX) tablet 200 mg 200 mg Oral Daily Kai Dos Santos MD 200 mg at 0 01/01/18 0817 menthol (HALLS COUGH DROP) lozenge 1 lozenge 1 lozenge Buccal Q2H PRN Kai Dos Santos MD metFORMIN (GLUCOPHAGE) tablet 1,000 mg 1,000 mg Oral BID WC Kai Dos Santos MD 1,000 mg at 01/01/18 1737 methocarbamol (ROBAXIN) tablet 1,500 mg 1,500 mg Oral Q6H PRN Kai Dos Santos MD metoclopramide (REGLAN) 5 mg/mL injection 10 mg 10 mg Intravenous Q4H PRN Kai Dos Santos MD metoclopramide (REGLAN) tablet 10 mg 10 mg Oral Q4H PRN Kai Dos Santos MD ondansetron (ZOFRAN ODT) disintegrating tablet 4 mg 4 mg Oral Q6H PRN Kai Dos Santos MD ondansetron (ZOFRAN) injection 4 mg 4 mg Intravenous Q6H PRN Kai Dos Santos MD oxyCODONE (ROXICODONE) tablet 5-20 mg 5-20 mg Oral Q4H PRN Kai Dos Santos MD 10 mg at 01/02/18 0306 phenol (CHLORASEPTIC) spray 1-2 spray 1-2 spray Mouth/Throat Q3H PRN Kai Dos Santos MD polyethylene glycol (MIRALAX) powder 17 g 17 g Oral Daily PRN Kai Dos Santos MD potassium chloride (KLOR-CON) ER tablet 5 mEq 5 mEq Oral Daily Kai Dos Santos MD 5 mEq at 01/01/18 0817 prochlorperazine (COMPAZINE) tablet 10 mg 10 mg Oral Q6H PRN Kai Dos Santos MD senna (SENOKOT) tablet 8.6 mg 8.6 mg Oral QAM Kai Dos Santos MD 8.6 mg at 01/01/18 081 9 sodium chloride 0.9% (NS) infusion Intravenous Continuous Kai Dos Santos MD 75 mL/hr at 01/01/18 2204 ALLERGIES: Allergies Allergen Reactions Codeine Other (See Comments) "makes my skin crawl" Morphine Swelling Joint swelling PHYSICAL EXAMINATION: Temp: [36.9 C (98.4 F)-37.4 C (99.3 F)] 36.9 C (98.4 F) Pulse: [92-103] 96 Resp: [16-18] 18 BP: (128-152)/(61-87) 132/61 Intake/Output Summary (Last 24 hours) at 01/02/18 0736 Last data filed at 01/02/18 0622 Gross per 24 hour Intake 2507 ml Output 3175 ml Net -668 ml GENERAL: Carlos Long is in no acute distress with unlabored respirations. HEENT: HEAD/FACE: EYES: Normocephalic and atraumatic. There are no areas of recent trauma. Normal sclerae without icterus. CHEST: Clear. HEART: Regular. ABDOMEN Soft and nondistended. EXTREMITIES: No edema or swelling. SCD's BACK: Last wound care reports no drainage. C brace intact NEUROLOGICAL EXAM: MENTAL STATUS: The patient is awake, alert, and oriented. He follows simple and complex commands. He speech is fluent, his comprehends speech well, and his repeats well. He has no apparent deficits with short or penitentiary memory. MOTOR EXAM: Motor strength is stable. Ongoing right foot drop right side. SENSORY EXAM: Sensory exam is stable 24 HOUR LABS: All Component Based Labs 01/02/18 0608 01/02/18 0607 01/02/18 0254 01/01/18 2049 01/01/18 1633 ALBUMIN 2.8(L) Albumin/Globulin ratio 1.0 ALK PHOS 98 ALT (SGPT) (REF) 12 ANION GAP 6 AST (SGOT) (REF) 13 % Basophils 0.4 Absolute Basophils 0.00 Bilirubin Total (Calculated) 0.9 BUN 9 BUN/CREA 16.4 Calcium 8.4 Chloride 101 Carbon dioxide 29 Creatinine 0.55(L) EGFR IF NOT >60 Comment: GLOMERULAR FILTRATION RATE,ESTIMATED mL/min/1.73m2 Less than 60 Chronic kidney disease,if found over a 3-month period. Less than 15 Kidney failure For Americans,multiply the calculated GFR by 1.21. % Eosinophils 1.3 Absolute Eosinophils 0.10 GLOBULIN 2.8 GLUCOSE 197(H) Hct, Final 37.2(L) Hgb 12.8(L) K 3.9 % Lymphocytes 13.4(L) Absolute Lymphocytes 1.20 MCH 31.7 MCHC 34.5 MCV 92.0 % Monocytes 8.8 Absolute Monocytes 0.80 MPV 9.4 NA 136 % Neutrophils 76.1 Absolute Neutrophils 6.60 Platelet Count 188 Glucose, POC 143(H) 173(H) 208(H) RBC COUNT 4.05(L) RDW-CV 13.4 Total protein 5.6(L) WBC 8.7 01/01/18 1207 01/01/18 0810 ALBUMIN Albumin/Globulin ratio ALK PHOS ALT (SGPT) (REF) ANION GAP AST (SGOT) (REF) % Basophils Absolute Basophils Bilirubin Total (Calculated) BUN BUN/CREA Calcium Chloride Carbon dioxide Creatinine EGFR IF NOT % Eosinophils Absolute Eosinophils GLOBULIN GLUCOSE Hct, Final Hgb K % Lymphocytes Absolute Lymphocytes MCH MCHC MCV % Monocytes Absolute Monocytes MPV NA % Neutrophils Absolute Neutrophils Platelet Count Glucose, POC 168(H) 102 RBC COUNT RDW-CV Total protein WBC ASSESSMENT: NEUROSURGICAL DIAGNOSES: S/p lumbar fusion Wound dehiscence with drainage HOSPITAL/GENERAL DIAGNOSES: Past Medical History: Diagnosis Date [...] pain control is appropriate. - Medically stable. DM is being addressed. PT on Maxipime and Vancomycin. - Mobilize, PT/OT - SCD's - Patient is having adequate bowel function without any concerns. - No drain is present. 2 weeks post op with readmission for wound dehiscence. - Disp: abx and PT/OT then hopefully DC home ELECTRONICALLY SIGNED BY: Benton Garza PA-C, 01/02/2018 7:36 Selene Chaudhry PharmD - 01/01/2018 2 :55 PM PDT PHARMACY SERVICES: ADMISSION MEDICATION REVIEW Carlos Long is a 57 y.o. male admitted on 01/01/2018. Patient is not a reliable historian. Location of Patient when reviewed: ED X Medical Floor Patient s prior to admit medication and over the counter (OTC) medications/herbal supplem ents list obtained from: X JUN from [facility] facility: [facility] Vaccines up to date? Yes No Unsure Influenza x Pneumococcal x Tdap x Shingles x Noted medications discrepancies or medication-related issues: Medication added: Medication: Prior to Admission Sig: Losartan-hydrochlorothiazide 20-12.5 mg tab 1 tab by mouth daily Amoxicillin-clavulanate 875-125 mg tab 1 tab by mouth twice daily Acetaminophen 500 mg tab 1 to 2 tabs by mouth every 8 hours as needed for pain or fever Bacitracin oint Apply topically to open area of surgical incision on abdomin for 7 days Insulin lispro 100 unit/mL inj 0-18 units under the skin three times daily before meals per sliding scale: 150-200= 3 units 201-250= 6 units 251-300= 9 units 301-350= 12 units 351-400= 15 units 401-999= 18 units and 0-15 units under the skin nightly per sliding scale: 150-200= 3 units 201-250= 6 units 251-300= 9 units 301-350= 12 units 351-400= 15 units 401-999= 18 units Glucagon 1 mg inj 1 mg intramuscularly as needed for blood sugar less than 60 and unrespons vonda Removed therapy: Medication: Prior to Admission Sig: Reason for Removal: Enoxaparin 40 mg/0.4 mL inj 40 mg under the skin nightly Therapy complete Irbesartan-hydrochlorothiazide 150-12.5 mg tab 1 tab by mouth daily Incorrect entry Insulin nph human 100 unit/mL inj Under the skin three times daily. Sliding scale. Incorre ct entry Other: Medication: Prior to Admission Sig: Patient taking differently DIRECT SUPPORT PROFESSIONAL as: Lactulose 10 g/[address] 30 mL by mouth twice daily Per MAR patient frequently refuses even ing dose Oxycodone 5 mg tab 1 to 4 tabs by mouth every 4 hours as needed for pain Per MAR patient ta eligio 15 to 20 mg three to five times daily for pain Best possible DIRECT SUPPORT PROFESSIONAL medication list after pharmacy review: Home Medications Medication Sig acetaminophen (TYLENOL) 500 mg tablet Take 500-1,000 mg by mouth every 8 hours as neede d for Pain or Fever. amoxicillin-clavulanate (AUGMENTIN) 875-125 mg per tablet Take 1 tablet by mouth 2 time s daily. aspirin 81 mg EC tablet Take 81 mg by mouth Daily. bacitracin 500 UNIT/GM ointment Apply 1 Application topically Daily. To surgical incisi on on abdomin for 7 days cholecalciferol (VITAMIN D-3) 2000 units TABS Take 2,000 Units by mouth Daily. cyclobenzaprine (FLEXERIL) 10 mg tablet Take 1 tablet by mouth every 8 hours as needed for Muscle spasms. DULoxetine (CYMBALTA) [address] capsule Take 60 mg by mouth Daily. gabapentin (NEURONTIN) 300 mg capsule Take 1 capsule by mouth 3 times daily. glucagon (GLUCAGON EMERGENCY) 1 MG injection Inject [...] 30 mLs by mouth 2 times daily. losartan-hydrochlorothiazide (HYZAAR) 50-12.5 MG per tablet Take 1 tablet by mouth Tim y. magnesium, as oxide, 250 MG tablet Take 250 mg by mouth Daily. metFORMIN (GLUCOPHAGE) 1000 MG tablet Take 1,000 mg by mouth 2 times daily (with breakf ast & dinner). oxyCODONE (ROXICODONE) 5 mg tablet Take 1-4 tablets by mouth every 4 hours as needed fo r Pain. potassium 99 mg tablet Take 99 mg by mouth Daily. Medication review performed and electronically signed by Yumiko Alberts, Video Production Assistant 01/01/2018 14:40 Selene Quiñones PharmD, JESS 01/01/2018 14:55Electronically signed by Selene Quiñones PharmD at 2:55 PM Adrienne Le PharmD - 01/01/2018 5:27 AM PDT RENAL DOSE ADJUSTMENT PER PHARMACY PROTOCOL: Subjective/Objective: Carlos Long is a 57 y.o. year old male admitted on 01/01/2018 2:28 and is receivi ng CEFEPIME for wound dehiscence. BP 108/55 | Pulse 100 | Temp 36.5 C (97.7 F) (Oral) | Resp 16 | Ht 1.93 m (6' 4") | Wt 131.4 kg (289 lb 11 oz) | SpO2 97% | BMI 35.26 kg/m Intake/Output Summary (Last 24 hours) at 01/01/18 0524 Last data filed at 01/01/18 0516 Gross per 24 hour Intake 0 ml Output 575 ml Net -575 ml No results for input(s): CREA in the last 168 hours.CrCl cannot be calculated (Patient's mo st recent lab result is older than the maximum 3 days allowed.). Date 01/01 Day of therapy 1 Serum Creatinine 0.66 (from OSH) CrCl (mL/min) >100 Dose - current 2 mg q8hr Dose - new 2 mg q12hr Assessment/Plan: 1. For creatinine clearance > 60 mL/min, recommended dose of CEFEPIME is 2 G q12h for indic ation. 2. Pharmacy will continue to follow and adjust dose as appropriate to clinical condition an d creatinine clearance changes RENAL DOSE ADJUSTMENT PROTOCOL Electronically signed by: Adrienne Blackmon PharmD 01/01/2018 5:24 documented in this encounter H&P Notes Kai Dos Santos MD - 01/01/2018 3:32 AM PDTFormatting of this note might be different from t he original. Kai Dos Santos MD [address] [place] [address], [address] [place] [address] FAX: NEUROSURGERY CHIEF COMPLAINT: Chief Complaint Patient presents with Follow-up Discuss Surgery HISTORY OF PRESENT ILLNESS: The patient is a 57 y.o. male that had a lumbar about 14 days ago. Postoperatively he has been in [place] at [facility]. He had a spontaneous small abdom inal dehiscence about 9 days ago. This was managed conservatively. A nurse at the facility without orders removed his lumbar sangita and his lumbar incisions on the left and right op ening minimally. He has had increased pain and developed very mild redness around his incis ions since this was done. He was at [facility] in [place] where they reported him being septic a nd needing emergent transfer. He arrived here non-toxic appearing. He reports no wound humphrey inage. He denies any neurologic changes. Hiis right foot weakness is stable. From a rehab standpoint, he is pleased with his progress and has been mobilizing well and i ncreasingly better. PAST MEDICAL HISTORY: Past Medical History: Diagnosis [...] Surgical History: Procedure Laterality Date CHOLECYSTECTOMY 1998 [facility] HIP ARTHROPLASTY 2000 Dr. Castañeda HIP ARTHROPLASTY 2003 Dr. Castañeda LAMINECTOMY N/A 12/15/2017 Procedure: ALIF ANTERIOR APPROACH L5-S1 ALIF, Posterior Hardware Revision with Iliac Fixat ion; Surgeon: Kai Dos Santos MD; Location: [facility] MAIN OR LUMBAR SPINE SURGERY Left 11/11/2016 Procedure: L3-4 Lateral Anterior Interbody Fusion, L3-4 Lumbar Decompression & Fusion, L5- S1 Transforaminal Lumbar Interbody Fusion; Surgeon: Kai Dos Santos MD; Location: [facility] MAIN OR LUMBAR SPINE SURGERY 1999 [facility] LUMBAR SPINE SURGERY 2014 [facility] TOE AMPUTATION Bilateral 2013, 2016 Dr. Eliasbeth Moser TONSILLECTOMY VASECTOMY CURRENT MEDICATIONS: Prior to Admission medications Medication Sig aspirin 81 mg EC tablet Take 81 mg by mouth Daily. cholecalciferol (VITAMIN D-3) 2000 units TABS Take 2,000 Units by mouth Daily. cyclobenzaprine (FLEXERIL) 10 mg tablet Take 1 tablet by mouth every 8 hours as needed for Muscle spasms. DULoxetine (CYMBALTA) [address] capsule Take 60 mg by mouth Daily. enoxaparin (LOVENOX) 40 mg/0.4 mL injection Inject 0.4 mLs under the skin nightly. gabapentin (NEURONTIN) 300 mg capsule Take 1 capsule by mouth 3 times daily. insulin detemir (LEVEMIR) 100 units/mL [...] times daily (before meals). Slidin g scale oxyCODONE (ROXICODONE) 5 mg tablet Take 1-4 tablets by mouth every 4 hours as needed for Pa in. potassium 99 mg tablet Take 99 mg [...] arthritis, no rheumatoid arthritis. INTERIM PHYSICAL EXAMINATION: Vitals: 01/01/18 0236 BP: (!) 143/92 Pulse: 92 Resp: 18 Temp: 37.4 C (99.4 F) GENERAL: Carlos Lnog is in no acute distress with unlabored respirations. HEENT: NCAT CHEST: Clear HEART: Regular ABDOMEN: Soft, ND. He is abdomen is obese. His lowermost part of his abdominal incision s hows minimally dehiscence with no drainage, induration, or fullness. SPINE: The patient's lumbar incisions show no drainage but both incisions have small dehisc ence. There is trace mild erythema without the appearance of cellulitis. The left incision was full. It was prepped and local was infiltrated. A 25 cc clear but bloody breakdown appearing flu id was aspirated. The area was less full and less tender after doing so. EXTREMITIES: No lower extremity edema. NEUROLOGICAL EXAMINATION: MENTAL STATUS: The patient is awake, alert, and oriented. He follows simple and complex commands MOTOR EXAM: Motor strength is 5/5 except for 3/5 DF on the right foot. SENSORY EXAM: The sensory examination shows L5 decreased sensation on the right. LABS AND RADIOGRAPHIC REVIEW: WBC 10 HCT 37 PLT 193 CRP 97.4 (Elevated) Lactate 1.3 (NL) UA Neg Na 135 Glucose 162 ASSESSMENT: S/p lumbar fusion revision for pseudoarthrosis L5-S1 Wound seroma Wound dehiscence Hx MRSA with recent negative MRSA screening x 2 Past Medical History: Diagnosis Date Anxiety Depression Diabetes mellitus (HCC) Diabetes type 2, controlled (HCC) Graves disease Hearing deficit HTN (hypertension) Lumbar facet joint pain Lumbar radiculopathy MRSA (methicillin resistant Staphylococcus aureus) Peroneal neuropathy RLS (restless legs syndrome) Sleep apnea uses CPAP Vision disorder deficit Wears dentures upper PLAN: The patient returns. He had his sangita removed and has had increasing issues with his wou nds since then. We discussed his options and that led to a small sterile technique aspiration discussed abo ve. He has a seroma which may explain most of his findings and perhaps a mild infection due to minimal dehiscence. Given his lack of neurologic findings, a more serious infection is unli kimberley. He is not septic in any way despite the reports of this from [facility]. I recommended admission, abx, wound care, and continued PT. ELECTRONICALLY SIGNED BY: Kai Dos Santos MD, 01/01/2018 3:32 [facility] Makeda Jones RN - 01/01/2018 4:36 AM PDTReport given to Makeda SALOMON. Belongings with pt. ogMakeda sanchez RN - 01/01/2018 2:38 AM PDTS/p back surgery on 12/[address] Dos Santos. Abdominal incision opened up last . Had sangita removed from incisions on the back yesterday and pt reported having pain from the site afterwards. Nurse at the rehab facility noticed increased redness around surgical sites. Pt developed fever today. Transferred [facility]. Electro nically signed by Makeda Jones RN at 01/01/2018 2:42 AM PDTWJean gonzalez MD - 01/01 2:37 AM PDT eMERGENCY dEPARTMENT eNCOUnter CHIEF COMPLAINT Chief Complaint Patient presents with Fever (9 Weeks To 74 Years) Post-op Problem HPI Carlos Long is a 57 y.o. male who presents in transfer from [facility] in [facility]. Patient had lumbar fusion surgery and laminectomy on 12/15/[address] April dos santos here at [facility]. [facility] because of low-grade fever and increased redness and swelling around lumba r surgical wound. They were worried that he might be septic and transferred him after speaki ng with Dr. dos santos. Patient received 1.5 g of vancomycin intravenously prior to transfer. CBC, CMP, urinalysis and lactic acid level were normal at [facility]. Patient denies any increased numbness or weakness in his legs or perineum. He denies any abdominal pain, na usea, or vomiting. He denies any bowel or bladder incontinence. He has a previous history of MRSA infection. PAST MEDICAL HISTORY Past Medical History: Diagnosis Date Anxiety Depression Diabetes mellitus (HCC) Diabetes type 2, controlled (HCC) Graves disease Hearing deficit HTN (hypertension) Lumbar facet joint pain Lumbar radiculopathy MRSA (methicillin resistant Staphylococcus aureus) Peroneal neuropathy RLS (restless legs syndrome) Sleep apnea not used since weight loss Vision disorder deficit Wears dentures upper SURGICAL HISTORY Past Surgical History: Procedure Laterality Date CHOLECYSTECTOMY 1998 [facility] HIP ARTHROPLASTY 2000 Dr. Castañeda HIP ARTHROPLASTY 2003 Dr. Castañeda LAMINECTOMY N/A 12/15/2017 Procedure: ALIF ANTERIOR APPROACH L5-S1 ALIF, Posterior Hardware Revision with Iliac Fixat ion; Surgeon: Kai Dos Santos MD; Location: [facility] MAIN OR LUMBAR SPINE SURGERY Left 11/11/2016 Procedure: L3-4 Lateral Anterior Interbody Fusion, L3-4 Lumbar Decompression & Fusion, L5- S1 Transforaminal Lumbar Interbody Fusion; Surgeon: Kai Dos Santos MD; Location: [facility] MAIN OR LUMBAR SPINE SURGERY 2000 [facility] LUMBAR SPINE SURGERY 2014 [facility] TOE AMPUTATION Bilateral 2016 Dr. Elisabeth Moser TONSILLECTOMY VASECTOMY CURRENT MEDICATIONS Previous Medications ASPIRIN 81 MG EC TABLET Take 81 mg by mouth Daily. CHOLECALCIFEROL (VITAMIN D-3) 2000 UNITS TABS Take 2,000 Units by mouth Daily. CYCLOBENZAPRINE (FLEXERIL) 10 MG TABLET Take 1 tablet by mouth every 8 hours as needed for Muscle spasms. DULOXETINE (CYMBALTA) [address] CAPSULE Take 60 mg by mouth Daily. ENOXAPARIN (LOVENOX) 40 MG/0.4 ML INJECTION Inject 0.4 mLs under the skin nightly. GABAPENTIN (NEURONTIN) 300 MG CAPSULE Take 1 capsule by mouth 3 times daily. INSULIN DETEMIR (LEVEMIR) 100 UNITS/ML INJECTION (VIAL) Inject 80 Units under the skin 2 times daily. IRBESARTAN-HYDROCHLOROTHIAZIDE (AVALIDE) 150-12.5 MG PER TABLET Take 1 tablet by mouth Daily. LACTULOSE 10 G/15 ML SOLUTION Take 30 mLs by mouth 2 times daily. MAGNESIUM, OXIDE, 250 MG TABLET Take 250 mg by mouth Daily. METFORMIN (GLUCOPHAGE) 1000 MG TABLET Take 1,000 mg by mouth 2 times daily (with breakf ast & dinner). NOVOLIN N 100 UNIT/ML INJECTION Inject under the skin 3 times daily (before meals). Sl iding scale OXYCODONE (ROXICODONE) 5 MG TABLET Take 1-4 tablets by mouth every 4 hours as needed fo r Pain. POTASSIUM 99 MG TABLET Take 99 mg by mouth Daily. ALLERGIES Allergies Allergen Reactions Codeine Other (See Comments) "makes my skin crawl" Morphine Swelling Joint swelling FAMILY HISTORY Family History Problem Relation Age of Onset Other cancer Father STOMACH Other (see comment) Mother BOWEL DISORDER No Known Problems Paternal Grandfather No Known Problems Paternal Grandmother No Known Problems Maternal Grandfather No Known Problems Maternal Grandmother Diabetes, NIDDM Sister No Known Problems Brother No Known Problems Brother No Known Problems Child SOCIAL HISTORY Social History Social History Marital status: Spouse name: BNIA LONG Number of children: 1 Years of education: 12 Occupational History AN/SQQ [id number]([id number] [employer] DISABLED Social History Main Topics Smoking status: Former Smoker Packs/day: 1.00 Types: Cigarettes Quit date: 08/25/2006 Smokeless tobacco: Never Used Alcohol use 0.0 oz/week Comment: once a month Drug use: No Sexual activity: Yes Other Topics Concern None Social History Narrative None REVIEW OF SYSTEMS A 12 system review of systems is otherwise negative except as noted in the HPI above. PHYSICAL EXAM VITAL SIGNS: (first vital signs):Temp: 37.4 C (99.4 F) Pulse: 92 (Simultaneous filing. User may not have seen previous data.) Resp: 18 SpO2: 94 % BP: (!) 143/92 Constitutional: Well developed, Well nourished, No acute distress, Non-toxic appearance. 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 Neck-supple, nontender, no meningismus, No stridor. Eyes: PERRL, EOMI, Conjunctiva normal, No discharge. Respiratory: Breath sounds equal bilaterally, no adventitious sounds, No chest wall tender ness. Cardiovascular: Normal rate, normal S1, S2, no murmurs, rubs, or gallops GI: Abdomen soft, non-tender, non-distended, normal bowel sounds, no CVA tenderness : Musculoskeletal: Intact distal pulses, No edema, No tenderness, No cyanosis. Good range of motion in all major joints. No tenderness to palpation or major deformities noted. Back- No tenderness. Skin: Warm, Dry, midline abdominal incision is clean, dry, and intact without any tenderne ss or fluctuance or erythema, lumbar incision on the right appears clean, dry, intact, lumba r incision on the left has surrounding erythema, induration, and is dehisced without any sig nificant purulent drainage noted Lymphatic: Neurologic: Alert & oriented x 3, Cranial nerves II-XII intact, Normal sensation, motor, a nd strength in all four extremities, No focal deficits noted. Psychiatric: Affect normal, Judgment normal, Mood normal. Labs Reviewed CULTURE, WOUND, SMEAR, W/ANAEROBE Narrative: The following orders were created for panel order Culture, Wound, Smear, w/Anaerobe. Procedure Abnormality Status --------- ------ Culture, Wound, Smear[[id number]] Culture, Anaerobic[[id number]] Please view results for these tests on the individual orders. CULTURE, WOUND, SMEAR CULTURE, ANAEROBIC RADIOLOGY CT Results: No results found. ED COURSE & MEDICAL DECISION MAKING Pertinent Labs & Imaging studies reviewed. (See chart for details) Patient presented for evaluation of postoperative wound infection. Patient appears to have developing cellulitis causing fever at the left lumbar incision site. 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 IV vancomycin dosing was given at outside hospit al. I contacted the patient's neurosurgeon, Dr. dos santos, who came and evaluated the patient and will admit him for IV antibiotics and further treatment. Last Set of Vital Signs: Temp: 37.4 C (99.4 F) Pulse: 92 (Simultaneous filing. User may not have seen previous data.) Resp: 18 SpO2: 94 % BP: (!) 143/92 FINAL IMPRESSION 1. Postoperative wound infection, subsequent encounter PLAN Inpatient admission Jean Ramirez MD 01/01/18 0400 Loretta Velazquez R N - 01/01/2018 2:28 AM PDTBed: ED11 Expected date: 01/01/18 Expected time: 0210 Means of arrival: Ambulance Comments: Good Jasmine docum ented in this encounter Miscellaneous Notes Plan of Care - Amanda Khoury RN - 01/04/2018 1:00 PM PDTSpoke with Ehsan Clark T ordario RN who states pt will be seen; no delay in care; med will be given peripherally; PICC wi ll be schedule Tuesday- Tuesday at the latest due to PICC RN availability. Message left with p atient re plan of care. TPlan of Care - Miriam Martino, REPAIRER SASH AND DOOR - 01/04/2018 11:46 AM PDTProblem: Discharge Planning Goal: Patient will be discharged in a safe manner Outcome: Improving This machine adjuster leader case trim received the orders from AYALA Conroy. This CM faxed them to Marcia at [facility] in fusions and confirmed with her that they have been received. The plan for PICC placement was decided between [place] and [facility], Padmini recreation program coordinator for infusion s, last night to place a PICC at prior to his infusion instead of getting a PICC placed h ere. This CM called Marcia to see what time he needed to present to get the PICC placed and To ri states that they will not be able to place a PICC until early to mid next week. This CM then called Amanda back to let her know about this. She was currently in infusions working but states that she will call and speak with the patient about this, she asked what time he is leaving and this CM was not sure as this CM had yet to speak with him about his t ransportation time. Amanda asked that this CM wait until she speaks with him re: PICC. 1115-this CM attempted to call Amanda, no call back. Went to patients room to speak with neftaly castellano and he was gone. Called his RN who reports that patient was discharged as she was told by the noc RN that everything was set up and Amanda confirmed with the RN on shift yesterday at he would get his PICC at [facility]. This CM called Amanda and explained the above information. She is going to call Marcia at [facility] to follow up and see if they can get his abx by peripheral line until they are able to plac e a PICC. Amanda will also call the patient and explain the situation. This CM called patient to make sure he is aware of his appointment on Tuesday at 1:40PM. Let him know that Amanda will be giving him a call. He was appreciative of the call. PLAN: Home with outpatient [facility]usions, follow up with a new PCP on Tuesday. Electronicall y signed by: DON Mike 01/04/2018 11:46 lan of Care - Vasiliy Huitron RRT - 01/04/2018 10:41 AM PDTProblem: Patient Care Overview (Adult) Goal: Care Team Goals & Evaluation PROBLEM-RELATED GOALS: 1. Will have pain < 3/10 by 01/07/18 2. Will be free of S/S infection by 01/07/18 3. Will have baseline sensation/strength by 01/06/18 4. Prevent post operative hypoxia in Will by 01/07/18. Goal met. 5. Prevent obstructive sleep apnea in Will by 01/07/18 6. Prevent post operative atelectasis/pneumonia In Will by 01/07/18. Goal met. 7. Modified independent in room and cho by 01/08/18 STRATEGY TO ACHIEVE GOALS: 1. Assess pain and offer medication per MD order. 2. Assess S/S infection 3. Assess sensation/strength 4. Titrate oxygen to room air keeping oxygen saturation at or >92% 5. Patient may use our/his cpap for sleep apnea 6. Patient to achieve 75% of predicted normal for inspirometer and or using on own by 7. Active participation in all PT interventions, out of bed for all meals. Outcome: Improving Goal Evaluation: SpO2 96% on RA, hospital home style CPAP at bedside for use while sleeping, pt to be disch arged today, no other interventions indicated at this time lan of Care - Juany Rush RN - 01/04/2018 10:40 AM PDTProblem: Patient Care Overview (Adult) Goal: Care Team Goals & Evaluation PROBLEM-RELATED GOALS: 1. Will have pain < 3/10 by 01/07/18 2. Will be free of S/S infection by 01/07/18 3. Will have baseline sensation/strength by 01/06/18 4. Prevent post operative hypoxia in Will by 01/07/18. Goal met. 5. Prevent obstructive sleep apnea in Will by 01/07/18 6. Prevent post operative atelectasis/pneumonia In Will by 01/07/18. Goal met. 7. Modified independent in room and cho by 01/08/18 STRATEGY TO ACHIEVE GOALS: 1. Assess pain and offer medication per MD order. 2. Assess S/S infection 3. Assess sensation/strength 4. Titrate oxygen to room air keeping oxygen saturation at or >92% 5. Patient may use our/his cpap for sleep apnea 6. Patient to achieve 75% of predicted normal for inspirometer and or using on own by 7. Active participation in all PT interventions, out of bed for all meals. Outcome: Adequate for Discharge Date Met: 01/04/18 Goal Evaluation: Patient ambulating in room and halls independently. No complaints of SOB. Has complained o f pain, given 15 mg of PRN Oxycodone earlier this morning. Requested 5mg of Oxycodone with F lexeril prior to departure. and daughter here to transfer. Went over all discharge inst ructions and medication list. All questions answered. Verbalized understanding. All belongin gs taken upon discharge, including insulin pen injectors and some items for wound care. lan of Care - Jamila Jeter RN - 01/04/2018 4:29 AM PDTProblem: Patient Care Overview (Adult) Goal: Care Team Goals & Evaluation PROBLEM-RELATED GOALS: 1. Will have pain < 3/10 by 01/07/18 2. Will be free of S/S infection by 01/07/18 3. Will have baseline sensation/strength by 01/06/18 4. Prevent post operative hypoxia in Will by 01/07/18. Goal met. 5. Prevent obstructive sleep apnea in Will by 01/07/18 6. Prevent post operative atelectasis/pneumonia In Will by 01/07/18. Goal met. 7. Modified independent in room and cho by 01/08/18 STRATEGY TO ACHIEVE GOALS: 1. Assess pain and offer medication per MD order. 2. Assess S/S infection 3. Assess sensation/strength 4. Titrate oxygen to room air keeping oxygen saturation at or >92% 5. Patient may use our/his cpap for sleep apnea 6. Patient to achieve 75% of predicted normal for inspirometer and or using on own by 7. Active participation in all PT interventions, out of bed for all meals. Outcome: Improving Goal Evaluation: continues w/IV antibiotics, plan for PICC to be placed post discharge at hospital close to home. Ambulates w/fww in cho w/steady gait, ambulates in room w/cane. Continues on room ai r. Has not used cpap for more than few hrs tonight. Pain managed w/oxycodone and tylenol q4h . Abdominal incision w/small area of dehiscence noted at distal end. Incisions to back cover ed w/foam dressings, clean/dry. Pt looking forward to discharging to home on Tuesday w/out pt IV infusions lan of Care - Carol Velez, SEAMER PANTY HOSE - 01/04/2018 4:18 AM PDTProblem: Patient Care Overview (Adult) Goal: Care Team Goals & Evaluation PROBLEM-RELATED GOALS: 1. Will have pain < 3/10 by 01/07/18 2. Will be free of S/S infection by 01/07/18 3. Will have baseline sensation/strength by 01/06/18 4. Prevent post operative hypoxia in Will by 01/07/18. Goal met. 5. Prevent obstructive sleep apnea in Will by 01/07/18 6. Prevent post operative atelectasis/pneumonia In Will by 01/07/18. Goal met. 7. Modified independent in room and cho by 01/08/18 STRATEGY TO ACHIEVE GOALS: 1. Assess pain and offer medication per MD order. 2. Assess S/S infection 3. Assess sensation/strength 4. Titrate oxygen to room air keeping oxygen saturation at or >92% 5. Patient may use our/his cpap for sleep apnea 6. Patient to achieve 75% of predicted normal for inspirometer and or using on own by 7. Active participation in all PT interventions, out of bed for all meals. Goal Evaluation: Fredis wore a hospital CPAP for parts of the night this shift. SpO2: 96 % on CPAP, room air, Breath sounds appear clear, equal bilaterally. lan of Care - Olga gomez, Miriam Castellano, REPAIRER SASH AND DOOR - 01/03/2018 6:03 PM PDTProblem: Discharge Planning Goal: Patient will be discharged in a safe manner Outcome: Improving This machine adjuster leader case trim spoke with AYALA Conroy for Dr Dos Santos today regarding patients needs for disch arge. Marycarmen reports that he is going to need 4 weeks of IV abx. After she spoke with Dr Dos Santos , they decided that they would prescribe Vanco q12 x 4 weeks. Marycarmen questions how he wants to get these infusions and also asked if he needs more therapies and ordered a IPR consult. Spoke with Marycarmen about a PICC line as patient did not yet have one, she is placing a PICC line order. This CM let Marycarmen know that patient was made mod I in the room and was discharged from PT services thus, does not need SNF or IPR for rehab. This CM met with patient to explain his o ptions. This CM explained that he could potentially go back to [facility] for q12 inf usions. Patient would rather not go back to [facility] is at all possible as he feels like phys [facility] he is more than ready to go home. This CM gave him the option of going to outpatient infusions twice a day at [facility] and patient would like to do this. At this time, Home health and home infusions would be a problem as they require patient to have a PC P and patient does not have a active PCP as his has retired. Patient would like to establish with a PCP at [facility] in [place] [phone]. He called and cannot get in until January. This CM let him know that this CM would call and see if he can be seen sooner. In the meantime, this CM did contact continuous improvement facilitator Marcia #[phone] who states that they absolutely need a provider to follow while on infusions. This CM asked her if they would be willing to accept Dr Dos Santos as the following physician until this patient can get established with a new PCP. She reports that they would accept this. This CM reached out to Marycarmen to ex plain the situation. She spoke with Dr Dos Santos who would be willing to follow in the interim. Th is CM called [facility] and was able to get him in to see Aggie Dunn as a new patient appointment on Tuesday 01/09 at 2PM. This was placed in AVS. This CM called Marcia back to let her know the above info. She will accept this patient for t omorrow. Patient will have his AM dose tomorrow and then discharge to follow up with infu sions. The times for the next 4 weeks with be at 0800 and 1800 daily.Marcia gave this CM a lis t of orders that are needed and this CM placed a specific sticky note for Jose Miguel/Marycarmen. This CM updated patient of the above information and is very happy to hear that this worked out. This CM stressed the importance of him making it to his new patient appointment on Tue. This CM later received a call from Fernanda continuous improvement facilitator and this CM explained the plan moving forward. She has reached out to the infusion dept at and they decided to move forward wi th him getting his PICC line placed at hospital tomorrow. This info was placed in the sti cky note for the provider. PLAN: Home with [facility] (he will get his PICC placed prior to e scheduled infusion at infusions). lan of Care - Kong witt, Amanda Billings RN - 01/03/2018 5:45 PM PDTS: Request fo PICC line placement. B: Pt currently on cefepime BID. CM reports pt [facility] receive [facility] followed by [place] [facility] for BID VANCOMYCIN via PICC line. A: Call to [facility]-discussed with Padmini who states if orders are sent, [facility] Will provide care: PICC placement, BID treatment. Pt has h/o PICC "getting wet, coming out, having to be replaced." Dr. Dos Santos is covering care until pt sees NEW PCP on Tuesday. R: [facility] will provide OPInfusion care needs. Request Dr Dos Santos order PICC placeme nt by [facility] so consistent education/care can be provided to patient. Discussed above with Miriam VICKERS and patient. Patient appreciative of plan. SBAR to Christy RN who co ntinues care. ALSO: pt tearful, desires to go home to (has dementia and at home with daughter provid ing care). Encouraged with discharge tomorrow. Visited for 15 mins as patient shared about w shadi/care needs/decisions. Supported patient and had prayer with patient.Electronically josselin d by Amanda Khoury RN at 01/03/2018 6:23 PM PDTPlan of Care - Sandhya Padron MSW - 01/03 3:54 PM PDTThank you for the referral to IPR. The patient's chart has been reviewed and he is modified independent in transfers, stairs, gait, and bed mobility rendering his le obey of function too high for IPR at this time. Thank you again for thinking of of our servi ce and submitting a referral. Electronically signed by: DON Owens 01/03/2018 15:56 lan of Care - Board, Christy Terrell RN - 01/03/2018 3:15 PM PDTProblem: Patient Care Overview (Adult) Goal: Care Team Goals & Evaluation PROBLEM-RELATED GOALS: 1. Will have pain < 3/10 by 01/07/18 2. Will be free of S/S infection by 01/07/18 3. Will have baseline sensation/strength by 01/06/18 4. Prevent post operative hypoxia in Will by 01/07/18. Goal met. 5. Prevent obstructive sleep apnea in Will by 01/07/18 6. Prevent post operative atelectasis/pneumonia In Will by 01/07/18. Goal met. 7. Modified independent in room and cho by 01/08/18 STRATEGY TO ACHIEVE GOALS: 1. Assess pain and offer medication per MD order. 2. Assess S/S infection 3. Assess sensation/strength 4. Titrate oxygen to room air keeping oxygen saturation at or >92% 5. Patient may use our/his cpap for sleep apnea 6. Patient to achieve 75% of predicted normal for inspirometer and or using on own by 7. Active participation in all PT interventions, out of bed for all meals. Outcome: Improving Goal Evaluation: Fredis is A&Ox4. Has remained free from fall and injury. Complains of left lower back/ left h ip pain. PRN tylenol and oxycodone effective for pain relief. Dressing changed to back incis ions. Abdominal incision open to air, cultures taken and sent to lab. Modified independent i n the room and halls. Walking frequently. Voiding well. IV SL. Calls appropriately and makes needs known. lan of Care - Yoseph Palmer, SEAMER PANTY HOSE - 01/03/2018 10:10 AM PDTProblem: Patient Care Overview (Adult) Goal: Care Team Goals & Evaluation PROBLEM-RELATED GOALS: 1. Will have pain < 3/10 by 01/07/18 2. Will be free of S/S infection by 01/07/18 3. Will have baseline sensation/strength by 01/06/18 4. Prevent post operative hypoxia in Will by 01/07/18. Goal met. 5. Prevent obstructive sleep apnea in Will by 01/07/18 6. Prevent post operative atelectasis/pneumonia In Will by 01/07/18. Goal met. 7. Modified independent in room and cho by 01/08/18 STRATEGY TO ACHIEVE GOALS: 1. Assess pain and offer medication per MD order. 2. Assess S/S infection 3. Assess sensation/strength 4. Titrate oxygen to room air keeping oxygen saturation at or >92% 5. Patient may use our/his cpap for sleep apnea 6. Patient to achieve 75% of predicted normal for inspirometer and or using on own by 7. Active participation in all PT interventions, out of bed for all meals. Outcome: Goal Achieved Date Met: 01/03/18 Goal Evaluation: Fredis was 97% on RA. He used CPAP overnight and has no c/o SOB. BS are clear. lan of Care - Cassia Olvera, PT - 01/03/2018 9:45 AM PDTFormatting of this note might be different from piper archuleta original. Problem: Patient Care Overview (Adult) Goal: Care Team Goals & Evaluation PROBLEM-RELATED GOALS: 1. Will have pain < 3/10 by 01/07/18 2. Will be free of S/S infection by 01/07/18 3. Will have baseline sensation/strength by 01/06/18 4. Prevent post operative hypoxia in Will by 01/07/18 5. Prevent obstructive sleep apnea in Will by 01/07/18 6. Prevent post operative atelectasis/pneumonia In Will by 01/07/18 7. Modified independent in room and cho by 01/08/18 STRATEGY TO ACHIEVE GOALS: 1. Assess pain and offer medication per MD order. 2. Assess S/S infection 3. Assess sensation/strength 4. Titrate oxygen to room air keeping oxygen saturation at or >92% 5. Patient may use our/his cpap for sleep apnea 6. Patient to achieve 75% of predicted normal for inspirometer and or using on own by 7. Active participation in all PT interventions, out of bed for all meals. Outcome: Goal Achieved Date Met: 01/03/18 Physical Therapy Plan of Care Treatment, Discharge Note Summary: Carlos has been participating in physical therapy for treatment of impaired mob ility following new onset seroma w/ possible infection from previous lumbar fusion 12/15/17.. Emphasis of session included review of bed mob, transfers, spinal precautions and LSO mgmt as well as increased distance w/ gait and negotiating of stairs. Currently Carlos is mobil izing at a level necessary for safe home discharge. No further acute PT services indicated a t this time. Pt cleared to mobilize on level and unlevel surfaces w/ white board updated and nursing notified. Physical Therapy Discharge Recommendations are: Recommended discharge disposition: home with assist Post discharge physical therapy recommendation: family involved/supportive, outpatient the rapy (when cleared by MD at follow-up) Equipment Recommendations: none Planned Interventions: balance training, bed mobility training, gait training, manual ther apy techniques, orthotic fitting/training, patient/family education, postural re-education, stair training, transfer training Recommended Frequency: (5-7x/wk) Patient Status/Goals: Reflects last filed data and may be from multiple contributors. Gait continued pelvic/postural instability necessitating the need for either a SPC or a FWW for longer distances, otherwise no assist needed Level of [place]: modified independent Assistive Device: 2 wheeled walker (FWW) Distance (feet): 250 Impairments: impaired balance, strength decreased, postural control impaired, decreased fle xibility Stairs No cuing needed, good technique Number of Stairs: 4 Handrail Location: both sides Level of [place]: modified independent Assistive Device: 2 rails Technique Used: step to step (ascending), step to step (descending) Safety Issues: balance decreased during turns Impairments: impaired balance, pain, postural control impaired Transfers No deficits other than extra time and effort Sit-Stand, Level of [place]: stand by assist, verbal cues required Stand-Sit, Level of [place]: stand by assist, verbal cues required Jdu-Otcke-Kav, Assistive Device: 2 wheeled walker (FWW) Safety Issues: sequencing ability decreased, balance decreased during turns Impairments: impaired balance, pain, postural control impaired, decreased flexibility Bed Mobility Pt able to demonstrate good log roll technique, relying on bed rail for assist, no addition al assist needed Assistive Device: bed rails Supine to Sit, Level of [place]: modified independent Sit to Supine, Level of [place]: modified independent Impairments: postural control impaired, pain Balance Sitting Balance: Static: normal balance Sitting Balance: Dynamic: good balance Standing Balance: Static: good balance Standing Balance: Dynamic: fair balance Therapeutic Exercise Discussed recommendation for HEP to include only walking for the first 30 days following villeda rgery. ROM L LE ROM: No deficits R LE ROM: No deficits Trunk ROM: NT d/t precautions Strength L LE Strength: grossly 4/5 t/o R LE Strength: grossly 4/5 t/o Trunk strength: NT d/t precautions PT Goal Review Date Most Recent Value STG Review Date 01/08/18 at 01/01/2018 0900 All Bed Mobility Goal Most Recent Value STG Status new, met at 01/01/2018 0900 STG [place] Level modified independent at 01/01/2018 0900 STG Assistive Device none at 01/01/2018 09 Yuo-Izoga-Vhw Goal Most Recent Value STG Status met at 01/02/2018 1021 STG [place] Level modified independent at 01/01/2018 09 STG Assistive Device 2 wheeled walker (FWW) at 01/01/2018 09 Gait Goal Most Recent Value STG Status met at 01/02/2018 1021 STG [place] Level modified independent at 01/01/2018 0900 STG Assistive Device 2 wheeled walker (FWW) at 01/01/2018 0900 STG Distance (feet) 150 at 01/01/2018 0900 Stair Goal Most Recent Value STG Status met at 01/03/2018 0950 STG [place] Level modified independent at 01/01/2018 0900 STG Assistive Device 2 rails at 01/01/2018 0900 STG Number of Stairs 4 at 01/01/2018 0900 Additional Goal #1 PT Most Recent Value STG Status met at 01/02/2018 1021 STG Pt will be independent w/ grade C precautions and mgmt of LSO at 01/01/2018 09 Electronically signed by: Cassia Carlson, PT, 01/03/2018 9:51 lan of Care - Carol Velez RRT - 01/03/2018 5:18 AM PDTProblem: Patient Care Overview (Adult) Goal: Care Team Goals & Evaluation PROBLEM-RELATED GOALS: 1. Will have pain < 3/10 by 01/07/18 2. Will be free of S/S infection by 01/07/18 3. Will have baseline sensation/strength by 01/06/18 4. Prevent post operative hypoxia in Will by 01/07/18 5. Prevent obstructive sleep apnea in Will by 01/07/18 6. Prevent post operative atelectasis/pneumonia In Will by 01/07/18 7. Modified independent in room and cho by 01/08/18 STRATEGY TO ACHIEVE GOALS: 1. Assess pain and offer medication per MD order. 2. Assess S/S infection 3. Assess sensation/strength 4. Titrate oxygen to room air keeping oxygen saturation at or >92% 5. Patient may use our/his cpap for sleep apnea 6. Patient to achieve 75% of predicted normal for inspirometer and or using on own by 7. Active participation in all PT interventions, out of bed for all meals. Goal Evaluation: Carlos wore a hospital CPAP for part of this shift. SpO2: 96 % on room air, Breath sounds appear clear, equal bilaterally. lan of Scott - Lisset Pisano RN - 01/02/2018 4:05 PM PDTProblem: Patient Care Overview (Adult) Goal: Care Team Goals & Evaluation PROBLEM-RELATED GOALS: 1. Will have pain < 3/10 by 01/07/18 2. Will be free of S/S infection by 01/07/18 3. Will have baseline sensation/strength by 01/06/18 4. Prevent post operative hypoxia in Will by 01/07/18 5. Prevent obstructive sleep apnea in Will by 01/07/18 6. Prevent post operative atelectasis/pneumonia In Will by 01/07/18 7. Modified independent in room and cho by 01/08/18 STRATEGY TO ACHIEVE GOALS: 1. Assess pain and offer medication per MD order. 2. Assess S/S infection 3. Assess sensation/strength 4. Titrate oxygen to room air keeping oxygen saturation at or >92% 5. Patient may use our/his cpap for sleep apnea 6. Patient to achieve 75% of predicted normal for inspirometer and or using on own by 7. Active participation in all PT interventions, out of bed for all meals. Outcome: Improving Goal Evaluation: Fredis has been up ambulating in room with FWW and new C-brace on. Pain is rated a 8-9/10 at time with some relief using oxi 15mg and tylenol. Drsg. Changed to the back after his showe r and site is swollen with steri strips in spots. Slight swelling but no redness of heat. VSS. Fredis remains on contact precautions due to HX of MRSA but at this time blood cultures ar e negative. lan of Care - Kai Negrete, SEAMER PANTY HOSE - 01/02/2018 2:23 PM PDTProblem: Patient Care Overview (Adult) Goal: Care Team Goals & Evaluation PROBLEM-RELATED GOALS: 1. Will have pain < 3/10 by 01/07/18 2. Will be free of S/S infection by 01/07/18 3. Will have baseline sensation/strength by 01/06/18 4. Prevent post operative hypoxia in Will by 01/07/18 5. Prevent obstructive sleep apnea in Will by 01/07/18 6. Prevent post operative atelectasis/pneumonia In Will by 01/07/18 7. Modified independent in room and cho by 01/08/18 STRATEGY TO ACHIEVE GOALS: 1. Assess pain and offer medication per MD order. 2. Assess S/S infection 3. Assess sensation/strength 4. Titrate oxygen to room air keeping oxygen saturation at or >92% 5. Patient may use our/his cpap for sleep apnea 6. Patient to achieve 75% of predicted normal for inspirometer and or using on own by 7. Active participation in all PT interventions, out of bed for all meals. Goal Evaluation: Patient using inspirometer on own and achieving 80-85% of predicted normal with good technique. Dry non-productive cough, breath sounds clear with diminished bases. Will continue to follow lan of Care - Edelmira Sutton, - 01/02/2018 11:49 AM PDTProblem: Patient Care Overview (Adult) Goal: Care Team Goals & Evaluation PROBLEM-RELATED GOALS: 1. Will have pain < 3/10 by 01/07/18 2. Will be free of S/S infection by 01/07/18 3. Will have baseline sensation/strength by 01/06/18 4. Prevent post operative hypoxia in Will by 01/07/18 5. Prevent obstructive sleep apnea in Will by 01/07/18 6. Prevent post operative atelectasis/pneumonia In Will by 01/07/18 7. Modified independent in room and cho by 01/08/18 STRATEGY TO ACHIEVE GOALS: 1. Assess pain and offer medication per MD order. 2. Assess S/S infection 3. Assess sensation/strength 4. Titrate oxygen to room air keeping oxygen saturation at or >92% 5. Patient may use our/his cpap for sleep apnea 6. Patient to achieve 75% of predicted normal for inspirometer and or using on own by 7. Active participation in all PT interventions, out of bed for all meals. Spiritual Care Carlos Long is a 57 y.o. male who is admitted for Postoperative wound infection, subsequent encounter [T81.4XXD]. 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 Spiritual Evaluation: The patient was calm but appeared to be frustrated and sad as he considered the health of h is . He was tearful and expressed that he is having struggles with his karyn when he co mpares some of the promises found in scripture with the reality of unanswered prayer. The p atient is a strong Voodoo who found God's comfort and transformation through the [employer]. He engages in daily Bible reading and is supported by his track vehicle repairer at [facility]. He says that he and his have support from their evangelical family. T he patient did not express concerns about his own health, but more for his and the pain he feels at seeing her health deteriorate. Spiritual Interventions: The straw hat machine operator attended, offered care, provided a supportive presence and words of comfort an d meaning. Spiritual Outcomes: The patient appreciated spiritual care and engaged actively regarding his frustrations, sen se of powerlessness, and love for his . Spiritual Goals/Follow-up: Follow up as needed or requested with spiritual and emotional support. lan of Care - Miriam Martino MSW - 01/02/2018 10:56 AM PDTProblem: Discharge Planning Goal: Patient will be discharged in a safe manner Outcome: Improving Referral faxed to Marissa Moser if patient needs IV abx at discharge. Sticky note left for provider asking if they anticipate patient discharging with PO vs IV abx. CM to follow up. lan of Care - [facility] Cassia collins, PT - 01/02/2018 10:15 AM PDTFormatting of this note might be different from piper henao. Problem: Patient Care Overview (Adult) Goal: Care Team Goals & Evaluation PROBLEM-RELATED GOALS: 1. Will have pain < 3/10 by 01/07/18 2. Will be free of S/S infection by 01/07/18 3. Will have baseline sensation/strength by 01/06/18 4. Prevent post operative hypoxia in Will by 01/07/18 5. Prevent obstructive sleep apnea in Will by 01/07/18 6. Prevent post operative atelectasis/pneumonia In Will by 01/07/18 7. Modified independent in room and cho by 01/08/18 STRATEGY TO ACHIEVE GOALS: 1. Assess pain and offer medication per MD order. 2. Assess S/S infection 3. Assess sensation/strength 4. Titrate oxygen to room air keeping oxygen saturation at or >92% 5. Patient may use our/his cpap for sleep apnea 6. Patient to achieve 75% of predicted normal for inspirometer and or using on own by 7. Active participation in all PT interventions, out of bed for all meals. Outcome: Improving Physical Therapy Plan of Care Treatment Note Summary: Carlos has been participating in physical therapy for treatment of impaired mob ility following new onset seroma w/ possible infection from previous lumbar fusion 12/15/17.. Emphasis of session included bed mob, transfers, gait, pt education and fitting w/ new LSO . Patient demonstrates progress towards functional goals as evidenced by diminished need fo r assist w/ functional mobility and improved capacity for activity. He was fitted and provid ed w/ new LSO which provides better fit for safety and support of grade C precautions as wel l as significant increase in comfort for pt. He will need to trial stairs and if he is succe ssful, he will be discharged from PT services to be cleared for independent mobility in room and cho. Remaining barriers to discharge and functional limitations include decreased func tional activity tolerance, stairs at home, not yet able to mobilize at level safe for home d ischarge and spinal precautions. Carlos will benefit from continued therapeutic intervention to address ongoing impairments and increase safety and independence with activities necessary for safe discharge. Refer be low for specific details regarding functional levels. Physical Therapy Discharge Recommendations are: Recommended discharge disposition: home with assist Post discharge physical therapy recommendation: family involved/supportive, outpatient the rapy (when cleared by MD at follow-up) Equipment Recommendations: 2 wheeled walker (FWW) Planned Interventions: balance training, bed mobility training, gait training, manual ther apy techniques, orthotic fitting/training, patient/family education, postural re-education, stair training, transfer training Recommended Frequency: (5-7x/wk) Patient Status/Goals: Reflects last filed data and may be from multiple contributors. Gait Mild LE instability which was premorbid w/ pt utilizing FWW effectively and w/o difficulty Level of Rusk: modified independent Assistive Device: 2 wheeled walker (FWW) Distance (feet): 200 Impairments: impaired balance, strength decreased, postural control impaired, decreased fle xibility Stairs Stairs not assessed at this time however pt does have stairs to access home therefore sta ir training is indicated Transfers No deficits other than extra time and effort Sit-Stand, Level of Rusk: stand by assist, verbal cues required Stand-Sit, Level of Rusk: stand by assist, verbal cues required [id number], Assistive Device: 2 wheeled walker (FWW) Safety Issues: sequencing ability decreased, balance decreased during turns Impairments: impaired balance, pain, postural control impaired, decreased flexibility Bed Mobility Pt able to demonstrate good log roll technique, relying on bed rail for assist, no addition al assist needed Assistive Device: bed rails Supine to Sit, Level of Rusk: modified independent Sit to Supine, Level of Rusk: modified independent Impairments: postural control impaired, pain Balance Sitting Balance: Static: normal balance Sitting Balance: Dynamic: good balance Standing Balance: Static: good balance Standing Balance: Dynamic: fair balance Therapeutic Exercise Discussed recommendation for HEP to include only walking for the first 30 days following villeda rgery. ROM L LE ROM: No deficits R LE ROM: No deficits Trunk ROM: NT d/t precautions Strength L LE Strength: grossly 4/5 t/o R LE Strength: grossly 4/5 t/o Trunk strength: NT d/t precautions PT Goal Review Date Most Recent Value STG Review Date 01/08/18 at 01/01/2018 0900 All Bed Mobility Goal Most Recent Value STG Status new, met at 01/01/2018 09 STG Rusk Level modified independent at 01/01/2018 0900 STG Assistive Device none at 01/01/2018 09 [id number] Goal Most Recent Value STG Status met at 01/02/2018 1021 STG R[place] Level modified independent at 01/01/2018 09 STG Assistive Device 2 wheeled walker (FWW) at 01/01/2018 09 Gait Goal Most Recent Value STG Status met at 01/02/2018 1021 STG R[place] Level modified independent at 01/01/2018 09 STG Assistive Device 2 wheeled walker (FWW) at 01/01/2018 09 STG Distance (feet) 150 at 01/01/2018 0900 Stair Goal Most Recent Value STG Status new at 01/01/2018 0900 STG R[place] Level modified independent at 01/01/2018 09 STG Assistive Device 2 rails at 01/01/2018 09 STG Number of Stairs 4 at 01/01/2018 0900 Additional Goal #1 PT Most Recent Value STG Status met at 01/02/2018 1021 STG Pt will be independent w/ grade C precautions and mgmt of LSO at 01/01/2018 0900 Electronically signed by: Cassia Carlson, PT, 01/02/2018 10:24 lan of Care - Tyesha Khoury, OT - 01/02/2018 9:10 AM PDTFormatting of this note might be different from the o riginal. Problem: Patient Care Overview (Adult) Goal: Care Team Goals & Evaluation PROBLEM-RELATED GOALS: 1. Will have pain < 3/10 by 01/07/18 2. Will be free of S/S infection by 01/07/18 3. Will have baseline sensation/strength by 01/06/18 4. Prevent post operative hypoxia in Will by 01/07/18 5. Prevent obstructive sleep apnea in Will by 01/07/18 6. Prevent post operative atelectasis/pneumonia In Will by 01/07/18 7. Modified independent in room and cho by 01/08/18 STRATEGY TO ACHIEVE GOALS: 1. Assess pain and offer medication per MD order. 2. Assess S/S infection 3. Assess sensation/strength 4. Titrate oxygen to room air keeping oxygen saturation at or >92% 5. Patient may use our/his cpap for sleep apnea 6. Patient to achieve 75% of predicted normal for inspirometer and or using on own by 7. Active participation in all PT interventions, out of bed for all meals. Occupational Therapy Plan of Care Treatment Note Summary: Carlos has been participating in occupational therapy for treatment of decrease d ability to safely perform self care ADLs s/p lumbar surgery and post-op wound infection. Emphasis of session included final discussion of ADLs and techniques to perform. He does no t have additional questions or concerns regarding ADLs and states his can help him at h ome. Assisted pt in removing brace when flat in bed for comfort and his brace was causing s ignificant pain, per his report. PT plans to fit pt with different brace during their sessi on. Did add elongated loop and strap to AFO for ease of donning and doffing AFO within prec autions. Patient demonstrates progress towards functional goals as evidenced by mod I with donning pants prior to OT arriving in room, per nursing report. Anticipate he will be able to manage socks/shoes with new extension strap and assist from his at home. No further OT needs indicated at this time. Refer below for specific details regarding fun ctional levels. Occupational Therapy Discharge Recommendations are: Recommended discharge disposition: home with assist Post discharge occupational therapy recommendation: family involved/supportive, home healt h Equipment Recommendations: none Planned Interventions:ADL retraining Recommended Frequency: other (see comments) (1 additional visit) Patient Status/Goals: Reflects last filed data and may be from multiple contributors. ADLs Pt states no concerns regarding ADLs, went through each one and pt was able to describe his current technique. His hard shell brace is his main inhibiting factor, per his report. PT is scheduled to fit him with a new brace. Did add extension loop and strap on his AFO for e ase on donning/doffing within precautions. Bed Mobility Able to demonstrate log roll technique, no phys assist Assistive Device: bed rails Sit to Supine, Level of Rusk: modified independent Impairments: postural control impaired, pain, decreased flexibility Transfers Pt has been moving indep to bed from chair, no phys assist. Sit-Stand, Level of Rusk: modified independent Stand-Sit, Level of Rusk: modified independent [id number], Assistive Device: 2 wheeled walker (FWW) (or IV pole, incidentally) Safety Issues: sequencing ability decreased, balance decreased during turns Impairments: impaired balance, pain, postural control impaired, decreased flexibility OT Goal Review Date Most Recent Value STG Review Date 01/08/18 at 01/02/2018 0946 LB Dressing Goal Most Recent Value STG Status continued, progressing at 01/02/2018 0946 STG Rusk Level modified independent at 01/01/2018 1755 STG Adaptive Equipment school office assistant, shoe horn, long handled, sock-aid at 01/01/2018 1755 Electronically signed by: Tyesha Khoury OT, 01/02/2018 9:48 lan of Care - Nydia Khoury RN - 01/02/2018 3:49 AM PDTProblem: Patient Care Overview (Adult) Goal: Care Team Goals & Evaluation PROBLEM-RELATED GOALS: 1. Will have pain < 3/10 by 01/07/18 2. Will be free of S/S infection by 01/07/18 3. Will have baseline sensation/strength by 01/06/18 4. Prevent post operative hypoxia for duration of stay 5. Prevent obstructive sleep apnea for duration of stay 6. Prevent post operative atelectasis/pneumonia by 7. Modified independent in room and cho by 01/08/18 STRATEGY TO ACHIEVE GOALS: Assess pain Assess S/S infection Offer medication per MD order Assess sensation/strength 4. Titrate oxygen to room air keeping oxygen saturation at or >92% 5. Patient may use our/his cpap for sleep apnea 6. Patient to achieve 75% of predicted normal for inspirometer and or using on own by 01/04 - Active participation in all PT interventions - Out of bed for all meals RESTRAINT-RELATED GOALS: STRATEGIES TO ACHIEVE RESTRAINT GOALS: Outcome: Improving Goal Evaluation: pt called around 0250, thinking blood sugar had dropped, checked blood sugar 143, wanted o j, given as requested. ivf's infusing without difficulty, medicated x2 this shift with pain meds and flexeril. [facility] checks complete, no change. c-brace on . lan of Care - Shar Silav V, SEAMER PANTY HOSE - 01/01/2018 8:52 PM PDTProblem: Patient Care Overview (Adult) Goal: Care Team Goals & Evaluation PROBLEM-RELATED GOALS: 1. Will have pain < 3/10 by 01/07/18 2. Will be free of S/S infection by 01/07/18 3. Will have baseline sensation/strength by 01/06/18 4. Prevent post operative hypoxia for duration of stay 5. Prevent obstructive sleep apnea for duration of stay 6. Prevent post operative atelectasis/pneumonia by 7. Modified independent in room and cho by 01/08/18 STRATEGY TO ACHIEVE GOALS: Assess pain Assess S/S infection Offer medication per MD order Assess sensation/strength 4. Titrate oxygen to room air keeping oxygen saturation at or >92% 5. Patient may use our/his cpap for sleep apnea 6. Patient to achieve 75% of predicted normal for inspirometer and or using on own by 01/04 - Active participation in all PT interventions - Out of bed for all meals RESTRAINT-RELATED GOALS: STRATEGIES TO ACHIEVE RESTRAINT GOALS: Outcome: Unchanged Goal Evaluation: Carlos oxygen saturation is SpO2: 95 % on room air and a heart rate of 103. Breath sounds are clear, equal bilaterally Pt's respirations are unlabored, no shortness of breath reported with . lan of Care - [facility] is, Salvador Pierre OT - 01/01/2018 5:55 PM PDTFormatting of this note might be different from piper archuleta original. Problem: Patient Care Overview (Adult) Goal: Care Team Goals & Evaluation PROBLEM-RELATED GOALS: 1. Will have pain < 3/10 by 01/07/18 2. Will be free of S/S infection by 01/07/18 3. Will have baseline sensation/strength by 01/06/18 4. Prevent post operative hypoxia for duration of stay 5. Prevent obstructive sleep apnea for duration of stay 6. Prevent post operative atelectasis/pneumonia by 7. Modified independent in room and cho by 01/08/18 STRATEGY TO ACHIEVE GOALS: Assess pain Assess S/S infection Offer medication per MD order Assess sensation/strength 4. Titrate oxygen to room air keeping oxygen saturation at or >92% 5. Patient may use our/his cpap for sleep apnea 6. Patient to achieve 75% of predicted normal for inspirometer and or using on own by 01/04 - Active participation in all PT interventions - Out of bed for all meals RESTRAINT-RELATED GOALS: STRATEGIES TO ACHIEVE RESTRAINT GOALS: Occupational Therapy Plan of Care Initial Evaluation Note Summary: Carlos presents to occupational therapy with decreased ability to safely perfor m self care ADLs s/p lumbar surgery and post-op wound infection. Objective exam reveals imp airments with anthropometric characteristics, ergonomics and body mechanics, gait, locomotio n, and balance, posture. Barriers to discharge and functional limitations include decreased functional activity tolerance, decreased functional transfers, decreased ability to perform BADLs, decreased ability to perform IADLs, decreased ability to perform medication manageme nt, demonstrating need for 24/7 supervision and spinal precautions. Carlos will benefit from therapeutic intervention to address impairments and increase safet y and independence with activities necessary for safe discharge. Refer below for specific d etails regarding functional levels. Precautions/Limitations: falls, brace on when up Precaution Comment: lumbar C precautions Left Upper Extremity Weight-Bearing: partial weight-bearing (5#) Right Upper Extremity Weight-Bearing: partial weight-bearing (5#) Previous Level of Function: Transferring: independent Ambulation: independent Toileting: independent Bathing: independent Dressing: independent Eating: independent Communication: understands/communicates without difficulty Swallowin-->swallows foods/liquids without difficulty Equipment Currently Used at Home: cane, straight, single point Prior Functional Level Comment: Pt reports being fully independent w/ all functional mobili ty, using a cane prior to lumbar fusion 2 wks ago. [facility] now w/ acute abdominal dehiscence. Potential available assistance at discharge: Provides Primary Care For: spouse Role Relationships Comment: has Alzheimers; Daughter is caring for pt's while he is recovering. Daughter will also be available to assist for a while upon home d/c Living Environment/Accessibility: Lives With: spouse Living Arrangements: mobile home Home Accessibility: stairs to enter home Number of Stairs to Enter Home: 3 Stair Railings at Home: outside, present at both sides Financial Concerns: none Transportation Available: family or friend will provide, agency transportation Living Environment Comment: Pt has tub/shower combo w/ shower chair, hand held shower, and grab bars. Has ETS, 3 different walkers, and some canes at home. Uses 4WW for [employer]. Patient/Family s Goals: return home to assist daughter in care for his spouse Rehabilitation potential: good, to achieve stated therapy goals Occupational Therapy Discharge Recommendations are: Recommended discharge disposition: home with assist Post discharge occupational therapy recommendation: family involved/supportive, home healt h Equipment Recommendations: none Planned Interventions:ADL retraining Recommended Frequency: other (see comments) (1 additional visit) Patient Status/Goals: Reflects last filed data and may be from multiple contributors. ADLs Pt states he has no concerns regarding ADLs. He has been in SNF for the previous 11 days an d feels confident that he can return home with assist rather than return to SNF. Pt states h e has not used AE for low body dressing and states he is unable to don/doff his AFO independ ently due to unable to adjust ankle strap. Advised him that he may benefit from a D-ring and perhaps a lengthened strap to allow him to use a school office assistant to pull strap. He states he can go to his orthotocist to get the strap modified. LB Dressing, Level of Rusk: maximal assist (25% patient effort) Assistive Device: none LB Dressing Assess/Train, Position: sitting, standing LB Dressing Assess/Train, Impairments: decreased flexibility, postural control impaired, pa in Bed Mobility Assistive Device: bed rails Supine to Sit, Level of R[place]: modified independent Sit to Supine, Level of R[place]: modified independent Impairments: postural control impaired, pain, decreased flexibility Transfers Sit-Stand, Level of R[place]: supervised, set up required Stand-Sit, Level of R[place]: supervised [id number], Assistive Device: 2 wheeled walker (FWW) Toilet, Level of Rusk: supervised Toilet, Assistive Device: 4 wheeled walker (4WW) Impairments: impaired balance, pain, postural control impaired, decreased flexibility ROM WFL within precautions Strength WFL within precautions OT Goal Review Date Most Recent Value STG Review Date 01/08/18 at 01/01/2018 175 LB Dressing Goal Most Recent Value STG Status new at 01/01/2018 1755 STG R[place] Level modified independent at 01/01/2018 1755 STG Adaptive Equipment school office assistant, shoe horn, long handled, sock-aid at 01/01/2018 1755 Electronically signed by: Salvador Waller OT, 01/01/2018 18:23 lan of Care - Virgen Tristan RN - 01/01/2018 5:54 PM PDTProblem: Patient Care Overview (Adult) Goal: Care Team Goals & Evaluation PROBLEM-RELATED GOALS: 1. Will have pain < 3/10 by 01/07/18 2. Will be free of S/S infection by 01/07/18 3. Will have baseline sensation/strength by 01/06/18 4. Prevent post operative hypoxia for duration of stay 5. Prevent obstructive sleep apnea for duration of stay 6. Prevent post operative atelectasis/pneumonia by 7. Modified independent in room and cho by 01/08/18 STRATEGY TO ACHIEVE GOALS: Assess pain Assess S/S infection Offer medication per MD order Assess sensation/strength 4. Titrate oxygen to room air keeping oxygen saturation at or >92% 5. Patient may use our/his cpap for sleep apnea 6. Patient to achieve 75% of predicted normal for inspirometer and or using on own by 01/04 - Active participation in all PT interventions - Out of bed for all meals RESTRAINT-RELATED GOALS: STRATEGIES TO ACHIEVE RESTRAINT GOALS: Outcome: Improving Goal Evaluation: Fredis's pain has been rated at 5-8/10 so this is not accomplished, he is being medicated as r equested/ordered. He has no new s/s of infection, or s/s of atelectasis/pneumonia. He was made Mod I in the room today by therapy. Muscle strength is 5/5, D/P is strong on the left, and the right plantar is mod, dorsi is weak due to foot drop. His BT's are good and he had 3 BM's today (not diarrhea). He is following his C-brace precautions. lan of Care - Kemi Patton, [facility] - 01/01/2018 12:10 PM PDTDischarge Planning Goal: Pt to be discharged in a safe manner Summary /Intervention: Met with Fredis and his who is at bedside to discuss potential discharge needs. Fredis was admitted from [facility] where he has been recovering from back surgery on See ALEE Pineda's note from 12/16 Prior to rehab and surgery, he lives at home with his in their mobile home (3 steps to enter) He has all DME at home (FWW, 4WW, bathroom DME). Pt states he feels he has accomplished his goals for rehab at [facility] and feels h geremias is ready to return home after this hospitalization. He may benefit from home health (PT/OT and RN for dressing change assistance) HOWEVER he wi ll need to establish with a primary care provider first. His PCP, Dr Rothman recently retir ed. He intends to call Olamide Scott [employer] [employer] to schedule to schedule an appointment. His sees this provider and he had intended to follow up with her after rehab. Plan: CM to follow, will revisit after PT / OT evaluation & recommendations Patient is considering returning directly home after this hospitalization - if so, suggest home health referral He states he has transportation assistance home Electronically signed by: LEONCIO Mccullough 01/01/2018 12:10 lan of Care - Kai Ceballos, [facility] - 01/01/2018 11:09 AM PDTProblem: Patient Care Overview (Adult) Goal: Care Team Goals & Evaluation PROBLEM-RELATED GOALS: 1. Will have pain < 3/10 by 01/07/18 2. Will be free of S/S infection by 01/07/18 3. Will have baseline sensation/strength by 01/06/18 4. Prevent post operative hypoxia for duration of stay 5. Prevent obstructive sleep apnea for duration of stay 6. Prevent post operative atelectasis/pneumonia by STRATEGY TO ACHIEVE GOALS: Assess pain Assess S/S infection Offer medication per MD order Assess sensation/strength 4. Titrate oxygen to room air keeping oxygen saturation at or >92% 5. Patient may use our/his cpap for sleep apnea 6. Patient to achieve 75% of predicted normal for inspirometer and or using on own by 01/04 RESTRAINT-RELATED GOALS: STRATEGIES TO ACHIEVE RESTRAINT GOALS: Goal Evaluation: patient oxygen saturation on room air = 94%. Patient did not bring h is cpap so would like to try one of ours tonight. Patient achieved 83% of predicted normal for inspirometer with dry non-productive cough. Will continue to follow lan of Care - Cassia Bloom, PT - 01/01/2018 9:15 AM PDT Problem: Patient Care Overview (Adult) Goal: Care Team Goals & Evaluation PROBLEM-RELATED GOALS: 1. Will have pain < 3/10 by 01/07/18 2. Will be free of S/S infection by 01/07/18 3. Will have baseline sensation/strength by 01/06/18 4. Prevent post operative hypoxia for duration of stay 5. Prevent obstructive sleep apnea for duration of stay 6. Prevent post operative atelectasis/pneumonia by 7. Modified independent in room and cho by 01/08/18 STRATEGY TO ACHIEVE GOALS: Assess pain Assess S/S infection Offer medication per MD order Assess sensation/strength 4. Titrate oxygen to room air keeping oxygen saturation at or >92% 5. Patient may use our/his cpap for sleep apnea 6. Patient to achieve 75% of predicted normal for inspirometer and or using on own by 01/04 - Active participation in all PT interventions - Out of bed for all meals RESTRAINT-RELATED GOALS: STRATEGIES TO ACHIEVE RESTRAINT GOALS: Physical Therapy Plan of Care Initial Evaluation, Treatment Note Summary: Carlos presents to physical therapy with impaired mobility following new onset seroma w/ possible infection from previous lumbar fusion 12/15/17.. Objective exam reveals i mpairments with anthropometric characteristics, ergonomics and body mechanics, gait, locomot ion, and balance, posture. Fredis has spent 2 wks at [facility] in [place] and he has progressed well, to the point where he was taking daily trips out of the facility to go home for daily visits and to [facility]. Despite his medical complication, his functional mobility remains hig h and he is likely to be safe for direct home discharge from the hospital setting. He is paul re of his grade C precautions although would benefit from some additional education for safe ty w/ mobility. He would benefit from fitting w/ new LSO as his present LSO is poorly fittin g and he will need to trial stairs prior to discharge. Barriers to discharge and functional limitations include decreased functional activity tole melvina, decreased functional transfers, decreased functional gait distance, decreased gait ve locity, stairs at home, not yet able to mobilize at level safe for home discharge and medica l status. Carlos will benefit from therapeutic intervention to address impairments and increase safet y and independence with activities necessary for safe discharge. Refer below for specific d etails regarding functional levels. Precautions/Limitations: falls, brace on when up Precaution Comment: Grade C Previous Level of Function: Transferring: independent Ambulation: independent Toileting: independent Bathing: independent Dressing: independent Eating: independent Communication: understands/communicates without difficulty Swallowin-->swallows foods/liquids without difficulty Equipment Currently Used at Home: cane, straight, single point Prior Functional Level Comment: Pt reports being fully independent w/ all functional mobili ty, using a cane prior to lumbar fusion 2 wks ago. Pt has been at [facility] for o ngoin therapy services, now w/ acute abdominal dehiscence. Potential available assistance at discharge: Provides Primary Care For: spouse Role Relationships Comment: has Alzheimers; Daughter is caring for pt's while he is recovering. Daughter will also be available to assist for a while upon home d/c Living Environment/Accessibility: Lives With: spouse Living Arrangements: mobile home Home Accessibility: stairs to enter home Number of Stairs to Enter Home: 3 Stair Railings at Home: outside, present at both sides Financial Concerns: none Transportation Available: family or friend will provide, agency transportation Living Environment Comment: Pt has tub/shower combo w/ shower chair, hand held shower, and grab bars. Has ETS, 3 different walkers, and some canes at home. Uses 4WW for [employer]. Patient/Family s Goals: Want to be able to go home straight from here. Rehabilitation potential: good, to achieve stated therapy goals Physical Therapy Discharge Recommendations are: Recommended discharge disposition: home with assist Post discharge physical therapy recommendation: family involved/supportive, outpatient the rapy (when cleared by MD at follow-up) Equipment Recommendations: 2 wheeled walker (FWW) Planned Interventions: balance training, bed mobility training, gait training, manual ther apy techniques, orthotic fitting/training, patient/family education, postural re-education, stair training, transfer training Recommended Frequency: (5-7x/wk) Patient Status/Goals: Reflects last filed data and may be from multiple contributors. Gait Cuing for posture w/ mild dynamic instability observed w/ pt relying heavily on FWW for sup port. FWW elevated to promote improved upright posture w/ good results Level of Rusk: stand by assist, verbal cues required Assistive Device: 2 wheeled walker (FWW) Distance (feet): 150 Impairments: impaired balance, pain, strength decreased, postural control impaired, decreas ed flexibility Stairs Stairs not assessed at this time however pt does have stairs to access home therefore sta ir training is indicated Transfers cuing for sequencing, posture and mgmt of AD, minor postural instability observed upon renny lee Sit-Stand, Level of Rusk: stand by assist, verbal cues required Stand-Sit, Level of Rusk: stand by assist, verbal cues required Nsz-Xakry-Gek, Assistive Device: 2 wheeled walker (FWW) Safety Issues: sequencing ability decreased, balance decreased during turns Impairments: impaired balance, pain, postural control impaired, decreased flexibility Bed Mobility Pt able to demonstrate good log roll technique, relying on bed rail for assist, no addition al assist needed Assistive Device: bed rails Supine to Sit, Level of Rusk: modified independent Sit to Supine, Level of Rusk: modified independent Impairments: postural control impaired, pain Balance Sitting Balance: Static: good balance Sitting Balance: Dynamic: fair balance Standing Balance: Static: fair balance Standing Balance: Dynamic: (fair-) ROM L LE ROM: No deficits R LE ROM: No deficits Trunk ROM: NT d/t precautions Strength L LE Strength: grossly 4/5 t/o R LE Strength: grossly 4/5 t/o Trunk strength: NT d/t precautions PT Goal Review Date Most Recent Value STG Review Date 01/08/18 at 01/01/2018 09 All Bed Mobility Goal Most Recent Value STG Status new, met at 01/01/2018899 STG Rusk Level modified independent at 01/01/2018 09 STG Assistive Device none at 01/01/2018 09 [id number] Goal Most Recent Value STG Status new at 01/01/2018899 STG Rusk Level modified independent at 01/01/2018 09 STG Assistive Device 2 wheeled walker (FWW) at 01/01/2018 09 Gait Goal Most Recent Value STG Status new at 01/01/2018899 STG Rusk Level modified independent at 01/01/2018 09 STG Assistive Device 2 wheeled walker (FWW) at 01/01/2018 09 STG Distance (feet) 150 at 01/01/2018 09 Stair Goal Most Recent Value STG Status new at 01/01/2018 09 STG Rusk Level modified independent at 01/01/2018 09 STG Assistive Device 2 rails at 01/01/2018 09 STG Number of Stairs 4 at 01/01/2018 09 Additional Goal #1 PT Most Recent Value STG Status new at 01/01/2018899 STG Pt will be independent w/ grade C precautions and mgmt of LSO at 01/01/2018 09 Electronically signed by: Cassia Carlson, PT, 01/01/2018 16:28 lan of Care - Makeda Polanco RN - 01/01/2018 6:49 AM PDTProblem: Patient Care Overview (Adult) Goal: Care Team Goals & Evaluation PROBLEM-RELATED GOALS: 1. Will have pain < 3/10 by 01/07/18 2. Will be free of S/S infection by 01/07/18 3. Will have baseline sensation/strength by 01/06/18 STRATEGY TO ACHIEVE GOALS: Assess pain Assess S/S infection Offer medication per MD order Assess sensation/strength RESTRAINT-RELATED GOALS: STRATEGIES TO ACHIEVE RESTRAINT GOALS: Outcome: Improving Goal Evaluation: Arrived from ED around 0515. ambulated to bed SBA. Lungs clear, heart regular. Fluid aspir ated from back in ED and back numbed by MD. Dressing to back free from drainage. Dressing l oose and reinforced. Denies N/T. Right foot drop. Brace did not come with him to hospital. antibiotic started. Voiding without difficulty. Bowel tones active. Very drowsy. Complains o f pain but falling asleep while taking with RN. No additional pain medication given. documented in this encounter Plan of Treatment + +------+--------+ + + | Name | Type | Priori | Associated Diagnoses | Date/Time | | | | ty | | | + +------+--------+ + + | ED INFORMATION | EVELYN | Routin | | 01/01/2018 2:31 AM | | EXCHANGE | | e | | PDT | + +------+--------+ + + documented as of this encounter Procedures + +--------+ + + + | Procedure Name | Priori | Date/Time | Associated Diagnosis | Comments | | | ty | | | | + +--------+ + + + | EXTRA YUDELKA SINGH | Routin | 01/04/2018 | | Results for this | | TUBE | e | 9:07 AM | | procedure are in the | | | | PDT | | results section. | + +--------+ + + + | CREATININE | Routin | 01/04/2018 | | Results for this | | | e | 9:07 AM | | procedure are in the | | | | PDT | | results section. | + +--------+ + + + | POC GLUCOSE | Routin | 01/04/2018 | | Results for this | | | e | 6:20 AM | | procedure are in the | | | | PDT | | results section. | + +--------+ + + + | POC GLUCOSE | Routin | 01/03/2018 | | Results for this | | | e | 9:03 PM | | procedure are in the | | | | PDT | | results section. | + +--------+ + + + | POC GLUCOSE | Routin | 01/03/2018 | | Results for this | | | e | 3:53 PM | | procedure are in the | | | | PDT | | results section. | + +--------+ + + + | POC GLUCOSE | Routin | 01/03/2018 | | Results for this | | | e | 11:46 AM | | procedure are in the | | | | PDT | | results section. | + +--------+ + + + | RICHI, WOUND, | Routin | 01/03/2018 | | Results for this | | SMEAR | e | 8:23 AM | | procedure are in the | | | | PDT | | results section. | + +--------+ + + + | POC GLUCOSE | Routin | 01/03/2018 | | Results for this | | | e | 6:27 AM | | procedure are in the | | | | PDT | | results section. | + +--------+ + + + | POC GLUCOSE | Routin | 01/02/2018 | | Results for this | | | e | 8:15 PM | | procedure are in the | | | | PDT | | results section. | + +--------+ + + + | POC GLUCOSE | Routin | 01/02/2018 | | Results for this | | | e | 4:51 PM | | procedure are in the | | | | PDT | | results section. | + +--------+ + + + | XR LUMBAR SPINE 2 OR | STAT | 01/02/2018 | | Results for this | | 3 VW | | 11:57 AM | | procedure are in the | | | | PDT | | results section. | + +--------+ + + + | POC GLUCOSE | Routin | 01/02/2018 | | Results for this | | | e | 11:34 AM | | procedure are in the | | | | PDT | | results section. | + +--------+ + + + | CBC WITH | Routin | 01/02/2018 | | Results for this | | DIFFERENTIAL | e | 6:08 AM | | procedure are in the | | | | PDT | | results section. | + +--------+ + + + | C-REACTIVE PROTEIN | Routin | 01/02/2018 | | Results for this | | | e | 6:07 AM | | procedure are in the | | | | PDT | | results section. | + +--------+ + + + | COMPREHENSIVE | Routin | 01/02/2018 | | Results for this | | METABOLIC PANEL | e | 6:07 AM | | procedure are in the | | | | PDT | | results section. | + +--------+ + + + | POC GLUCOSE | Routin | 01/02/2018 | | Results for this | | | e | 2:54 AM | | procedure are in the | | | | PDT | | results section. | + +--------+ + + + | POC GLUCOSE | Routin | 01/01/2018 | | Results for this | | | e | 8:49 PM | | procedure are in the | | | | PDT | | results section. | + +--------+ + + + | POC GLUCOSE | Routin | 01/01/2018 | | Results for this | | | e | 4:33 PM | | procedure are in the | | | | PDT | | results section. | + +--------+ + + + | POC GLUCOSE | Routin | 01/01/2018 | | Results for this | | | e | 12:07 PM | | procedure are in the | | | | PDT | | results section. | + +--------+ + + + | POC GLUCOSE | Routin | 01/01/2018 | | Results for this | | | e | 8:10 AM | | procedure are in the | | | | PDT | | results section. | + +--------+ + + + | CULTURE, WOUND, | STAT | 01/01/2018 | | Results for this | | SMEAR | | 4:02 AM | | procedure are in the | | | | PDT | | results section. | + +--------+ + + + | CULTURE, WOUND, | STAT | 01/01/2018 | | Results for this | | SMEAR, W/ANAEROBE | | 4:02 AM | | procedure are in the | | | | PDT | | results section. | + +--------+ + + + | CULTURE, ANAEROBIC | STAT | 01/01/2018 | | Results for this | | | | 4:02 AM | | procedure are in the | | | | PDT | | results section. | + +--------+ + + + | ED INFORMATION | Routin | 01/01/2018 | | | | EXCHANGE | e | 2:31 AM | | | | | | PDT | | | + +--------+ + + + +---+--------+ | | | | | Proced | | | ure | | | Note - | | | Suri, | | | Lab In | | | | | | Hlseve | | | n - | | | 01/01/ | | | 2018 | | | 2:32 | | | AM PDT | | | | | | Format | | | ting | | | of | | | this | | | note | | | might | | | be | | | differ | | | ent | | | from | | | the | | | origin | | | al.SURI | | | E?NOTI | | | FICATI | | | ON?/ | | | | | | 8 | | | 02:28? | | | JEANA | | | EZ, | | | CARLOS | | | | | | A?MRN: | | | | | | [id number] | | | [id number] | | | his | | | patien | | | t has | | | regist | | | ered | | | at the | | | | | | Provid | | | ence | | | [facility] | [facility] | | | l | | | Center | | | | | | Emerge | | | ncy | | | Depart | | | ment | | | For | | | more | | | inform | | | ation | | | visit: | | | | | | https: | | | //secu | | | re.suri | | | ecarep | | | [email or web address] | | | m/leslie | | | ent/f0 | | | [phone] | | | -[phone]- | | | [phone] | | | [phone] | | | [id number] | | | [phone] | | | Securi | | | ty | | | Events | | | No | | | recent | | | | | | Securi | | | ty | | | Events | | | | | | curren | | | tly on | | | | | | fileED | | | Care | | | Guidel | | | sandie | | | from | | | [facility] | | | [facility] | | | rd | | | Health | | | Care | | | System | | | Last | | | Update | | | d: | | | 12/23/ | | | 16 | | | 11:19 | | | AM | | | Care | | | Recomm | | | endati | | | on: | | | Please | | | | | | provid | | | e | | | educat | | | ion | | | the | | | patien | | | t on | | | the | | | scope | | | and | | | purpos | | | e of | | | the ED | | | as an | | | acute | | | care | | | provid | | | er not | | | a | | | Primar | | | y Care | | | | | | Provid | | | er and | | | | | | should | | | not | | | be | | | utiliz | | | ed for | | | | | | chroni | | | c | | | condit | | | ions. | | | Connex | | | ions | | | [phone] | | | [phone] | | | or | | | [phone] | | | [phone] | | | . | | | Would | | | benefi | | | t from | | | at | | | referr | | | al to | | | a drug | | | and | | | alcoho | | | l | | | progra | | | m for | | | his | | | addict | | | ion to | | | pain | | | pills, | | | per | | | PT | | | reques | | | t.?The | | | se are | | | | | | guidel | | | sandie | | | and | | | the | | | provid | | | er | | | should | | | | | | exerci | | | se | | | clinic | | | al | | | judgme | | | nt | | | when | | | provid | | | ing | | | care.R | | | ecent | | | Emerge | | | ncy | | | Depart | | | ment | | | Visit | | | [facility] | | | yAdmit | | | Date | | | Facili | | | ty | | | City | | | State | | | Type | | | Major | | | Type | | | Diagno | | | ses or | | | Chief | | | | | | Compla | | | int | | | Sep 9, | | | 2018 | | | Provid | | | ence | | | [facility] | | [facility] | | [place] | | | [place] | | | Emerge | | | ncy | | | Emerge | | | ncy | | | Sep 8, | | | 2018 | | | Good | | | [facility] | | | rd | | | Health | | | Care | | | System | | | | | | [place] | | | [place] | | | Emerge | | | ncy | | | Emerge | | | ncy | | | Chief | | | Compla | | | int: | | | WOUND | | | CHECK | | | Micah | | | 27, | | | 2018 | | | Good | | | [facility] | | | rd | | | Health | | | Care | | | System | | | | | | [place] | [place] | [place] | | | Emerge | | | ncy | | | Emerge | | | ncy | | | Chief | | | Compla | | | int: | | | RIGHT | | | SIDE | | | PAIN | | | E.D. | | | Visit | | | Count | | | (12 | | | mo.)Fa | | | cility | | | | | | Visits | | | Low | | | Acuity | | | Good | | | [facility] | | | rd | | | Health | | | Care | | | System | | | 7 0 | | | Provid | | | ence | | | St. | | | [facility] | | | Medica | | | l | | | Center | | | 1 0 | | | Total | | | 8 0 | | | Note: | | | Visits | | | | | | indica | | | te | | | total | | | known | | | visits | | | . | | | Medica | | | id Low | | | | | | Acuity | | | Dx | | | are | | | the | | | number | | | of | | | primar | | | y | | | diagno | | | ses on | | | the | | | Medica | | | id's | | | Low | | | Acuity | | | dx | | | list. | | | | | | Recent | | | | | | Inpati | | | ent | | | Visit | | | [facility] | | | yAdmit | | | Date | | | Facili | | | ty | | | City | | | State | | | Type | | | Major | | | Type | | | Diagno | | | ses or | | | Chief | | | | | | Compla | | | int | | | Aug | | | 23, | | | 2018 | | | Provid | | | ence | | | [facility] | | | [facility] | [place] | | | [place] | | | Surgic | | | al | | | Servic | | | es | | | Inpati | | | ent | | | | | | Unspec | | | ified | | | fractu | | | re of | | | unspec | | | ified | | | lumbar | | | | | | verteb | | | ra, | | | subseq | | | uent | | | encoun | | | ter | | | for | | | fractu | | | re | | | with | | | nonuni | | | on | | | Other | | | biomec | | | hanica | | | l | | | lesion | | | s of | | | lumbar | | | | | | region | | | | | | Low | | | back | | | pain | | | Foot | | | drop, | | | right | | | foot | | | | | | Radicu | | | lopath | | | y, | | | lumbar | | | | | | region | | | | | | Unspec | | | ified | | | abnorm | | | alitie | | | s of | | | gait | | | and | | | mobili | | | ty | | | PDMP | | | Report | | | PDMP | | | query | | | found | | | no | | | report | | | .Care | | | Provid | | | ersPro | | | vider | | | PRC | | | Type | | | Phone | | | Fax | | | Servic | | | e | | | Dates | | | Jessic | | | a | | | Prieto, | | | | | | Commun | | | ity | | | Health | | | | | | Worker | | | Case | | | or | | | Care | | | Manage | | | r | | | ([phone] | | | [phone] | | | 04 | | | [phone] | | | [phone] | | | 10 | | | Curren | | | t | | | Care | | | Histor | | | yMedic | | | al/Javi | | | [email or web address] | | | 2/14/1 | | | 6 | | | 12:00 | | | AM | | | Good | | | [facility] | | | rd | | | Health | | | Care | | | System | | | PT | | | called | | | | | | ConneX | | | ions | | | reques | | | ting | | | help | | | with | | | an | | | addict | | | ion to | | | pain | | | pills. | | | He | | | stated | | | that | | | he was | | | | | | seeing | | | Dr. | | | Groner | | | for | | | pain | | | manage | | | ment, | | | but | | | did | | | not | | | know | | | if | | | there | | | was | | | anothe | | | r | | | route | | | for | | | him to | | | take. | | | CHW, | | | Breanne | | | , | | | recomm | | | end | | | that | | | he | | | speak | | | with | | | [place] | | | [place] | | | [place] | | | AandD | | | | | | Progra | | | m | | | ([phone] | | | [phone] | | | [phone]). | | | Please | | | refer | | | PT | | | back | | | to the | | | | | | progra | | | m if | | | he | | | comes | | | into | | | the | | | emerge | | | ncy | | | room.? | | | 12/1/1 | | | 6 | | | 12:00 | | | AM | | | Good | | | [facility] | | | rd | | | Health | | | Care | | | System | | | Commun | | | ity | | | Health | | | | | | Worker | | | , | | | Jessic | | | a, has | | | made | | | many | | | attemp | | | ts at | | | engagi | | | ng | | | this | | | client | | | in | | | servic | | | es. | | | Client | | | has | | | not | | | return | | | ed any | | | phone | | | | | | calls/ | | | messag | | | es. | | | Please | | | refer | | | back | | | to | | | ConneX | | | ions | | | progra | | | m if | | | the | | | client | | | is | | | back | | | in the | | | ED. | | | [phone] | | | [phone] | | | or | | | [phone] | | | [phone] | | | Criter | | | ia met | | | Care | | | | | | Guidel | | | inesKn | | | own | | | Aliase | | | sNo | | | known | | | aliase | | | s. The | | | above | | | | | | inform | | | ation | | | is | | | provid | | | ed for | | | the | | | sole | | | purpos | | | e of | | | patien | | | t | | | treatm | | | ent. | | | Use of | | | this | | | inform | | | ation | | | beyond | | | the | | | terms | | | of | | | Data | | | Sharin | | | g | | | Memora | | | ndum | | | of | | | Unders | | | tandin | | | g and | | | Licens | | | e | | | Agreem | | | ent is | | | | | | prohib | | | ited. | | | In | | | certai | | | n | | | cases | | | not | | | all | | | visits | | | may | | | be | | | repres | | | ented. | | | | | | Consul | | | t the | | | aforem | | | ention | | | ed | | | facili | | | ties | | | for | | | additi | | | onal | | | inform | | | ation. | | | ? | | | 2018 | | | Colle[employer] | | | tive | | | Med[employer] | | | l | | | [employer] | | | logies | | | , [employer] | | | - | | | [place] | | | [place] | | | [place], | | | [place] - | | | [email or web address]@c | | | ollect | | | ivemed | | | icalte | | | [email or web address] | | | | +---+--------+ + +---+ +---+ + | LABS - EXTERNAL SCAN | | 12/31/2017 | | Results for this | | | | 12:00 AM | | procedure are in the | | | | PDT | | results section. | + +---+ +---+ + documented in this encounter Results Extra Lavender Top Tube (01/04/2018 9:07 AM PDT) + +-------+ + + + | Component | Value | Ref Range | Performed | Pathologist | | | | | At | Signature | + +-------+ + + + | Extra | Done | | [facility] | | | Lavender | | | [facility] | | | Top Tube | | | [facility] | | | [...] + + | [facility] | [address] | ELI[place] | [phone] | | [facility] | | [id number] | | | - LABORATORY | | | | + + + + + Creatinine (01/04/2018 9:07 AM PDT) + + + + + + | Component | Value | Ref Range | Performed | Pathologist | | | | | At | Signature | + + + + + + | Creatinine | 0.61 | 0.60 - 1.30 | [facility] | [...] non- | FILTRATION | mL/min/1.73m2 | [facility] | | | [place] | RATE,ESTIMATED | | MEDICAL | | | | mL/min/1.04k7Kaev than | | CENTER - | | [...] [address] | [place] | [phone] | | [facility] | | [address] | | | - LABORATORY | | | | + + + + + POC Glucose (01/04/2018 6:20 AM PDT) + +-------+ + + + | Component | Value | Ref Range | Performed | Pathologist | | | | | At | Signature | + +-------+ + + + | Glucose, | 83 | 70 - 109 mg/dL | [facility] | | | POC | | | [facility] | | | | | | MEDICAL [...] + | [facility] | [address] | [place] | [phone] | | [facility] | | [address] | | | - LABORATORY | | | | + + + + + POC Glucose (01/03/2018 9:03 PM PDT) + +---------+ + + + | Component | Value | Ref Range | Performed | Pathologist | | | | | At | Signature | + +---------+ + + + | Glucose, | 152 (H) | 70 - 109 mg/dL | [...] [address] | [place] | [phone] | | [facility] | | [address] | | | - LABORATORY | | | | + + + + + POC Glucose (01/03/2018 3:53 PM PDT) + +---------+ + + + | Component | Value | Ref Range | Performed | Pathologist | | | | | At | Signature | + +---------+ + + + | Glucose, | 132 (H) | 70 - 109 mg/dL | [...] [address] | [place] | [phone] | | [facility] | | [address] | | | - LABORATORY | | | | + + + + + POC Glucose (01/03/2018 11:46 AM PDT) + +---------+ + + + | Component | Value | Ref Range | Performed | Pathologist | | | | | At | Signature | + +---------+ + + + | Glucose, | 212 (H) | 70 - 109 mg/dL | [facility] | | | POC | | | [facility] | | | | | | MEDICAL [...] + | [facility] | [address] | [place], [place] | [phone] | | [facility] | | [address] | | | - LABORATORY | | | | + + + + + Culture, Wound, Smear (01/03/2018 8:23 AM PDT) + + + + + + | Component | Value | Ref Range | Performed | Pathologist | | | | | At | Signature | + + + + + + | Culture | 1+ Staphylococcus | | [facility] | | | | epidermidisComment: | | [facility] | | | | Consistent with skin | | MEDICAL | | | | joselyn. | | CENTER - | | | | | | LABORATORY | | + + + + + + | Gram Stain | 1+ White Blood Cells | | [facility] | | | Result | | | [facility] | | | | | | [facility]ICAL | | | | | | CENTER - | | | | | | LABORATORY | | + + + + + + | Gram Stain | 1+ Epithelial cells | | [facility] | | | Result | | | [facility] | | | | | | MEDICAL | | | | | | CENTER - | | | | | | LABORATORY | | + + + + + + | Gram Stain | No organisms seen | | [facility] | | | Result | | | [facility] | | | | | | MEDICAL | | | | | | CENTER - | | | | | | LABORATORY | | + + + + + + + + | Specimen | + + | Tissue - Abdominal | | wall structure (body | | structure) | + + + + + + + | Performing | Address | City/State/Zipcode | Phone Number | | Organization | | | | + + + + + | [facility] | [address] | [place] | [phone] | | [facility] | | [address] | | | - LABORATORY | | | | + + + + + POC Glucose (01/03/2018 6:27 AM PDT) + +---------+ + + + | Component | Value | Ref Range | Performed | Pathologist | | | | | At | Signature | + +---------+ + + + | Glucose, | 121 (H) | 70 - 109 mg/dL | [facility] | | | POC | | | [facility] | | | | | | MEDICAL [...] [address] | [place] | [phone] | | [facility] | | [address] | | | - LABORATORY | | | | + + + + + POC Glucose (01/02/2018 8:15 PM PDT) + +---------+ + + + | Component | Value | Ref Range | Performed | Pathologist | | | | | At | Signature | + +---------+ + + + | Glucose, | 186 (H) | 70 - 109 mg/dL | [...] + + | [facility] | [address] | [place] | [phone] | | [facility] | | [address] | | | - LABORATORY | | | | + + + + + POC Glucose (01/02/2018 4:51 PM PDT) + +---------+ + + + | Component | Value | Ref Range | Performed | Pathologist | | | | | At | Signature | + +---------+ + + + | Glucose, | 166 (H) | 70 - 109 mg/dL | [...] [facility] | [address] | [place] | [phone] | | [facility] | | [address] | | | - LABORATORY | | | | + + + + + XR Lumbar Spine 2 or 3 Vw (01/02/2018 11:57 AM PDT) + + | Specimen | + + | | + + + + + | Narrative | Performed At | + + + | XR LUMBAR SPINE 2 OR 3 VW 01/02/2018 11:57 AM HISTORY: Postop. | [facility] | | COMPARISON: Multiple priors. FINDINGS: Again visualized are | | | hardware for posterior fusion from L4 through the SI joints and for | | | anterior fusion with plate and screws and low profile screws from L5 | | | through S1. Spacer hardware are noted from L3-4 through L5-S1. The | | | hardware are intact. There is mild dextroscoliosis of the lumbar | | | spine. Moderate spondylosis is present. Mild retrolistheses are noted | | | of L1 over L2 and L3 over L4. Minimal anterolisthesis is observed of | | | L4 over L5. There is mild anterolisthesis of L5 over S1. Bone | | | mineralization is decreased. Vertebral body height are preserved with | | | no evidence for compression fractures. Mild disc narrowing is at L1-2 | | | with endplate sclerosis. Multilevel facet sclerosis and hypertrophy | | | are observed. Visualized ribs and pelvic osseous structures show no | | | acute findings. There are bilateral hip arthroplasties. | | | IMPRESSION - Stable posterior fusion from L4 through the SI joints | | | and anterior fusion from L5 through S1. Dictated and Signed by: | | | Neri Degroot MD Electronically signed: 01/02/2018 12:40 PM | | + + + + + | Procedure Note | + + | Suri, Rad Results In - 01/02/2018 12:43 PM PDT XR LUMBAR SPINE 2 OR 3 VW 01/02/2018 | | 11:57 AMHISTORY: Postop.COMPARISON: Multiple priors.FINDINGS:Again visualized are | | hardware for posterior fusion from L4 through the SI jointsand for anterior fusion with | | plate and screws and low profile screws from [id number] S1. Spacer hardware are noted | | from L3-4 through L5-S1. The hardware areintact. There is mild dextroscoliosis of the | | lumbar spine. Moderate spondylosisis present. Mild retrolistheses are noted of L1 over | | L2 and L3 over L4. Minimalanterolisthesis is observed of L4 over L5. There is mild | | anterolisthesis of L5over S1. Bone mineralization is decreased. Vertebral body height | | are preservedwith no evidence for compression fractures. Mild disc narrowing is at L1-2 | | withendplate sclerosis. Multilevel facet sclerosis and hypertrophy are | | observed.Visualized ribs and pelvic osseous structures show no acute findings. There | | arebilateral hip arthroplasties.IMPRESSION -Stable posterior fusion from L4 through the | | SI joints and anterior fusion fromL5 through S1.Dictated and Signed by: Neri Degroot MD | | Electronically signed: 01/02/2018 12:40 PM | |with no evidence for compression fractures. Mild disc narrowing is at L1-2 with | |endplate sclerosis. Multilevel facet sclerosis and hypertrophy are observed. | |Visualized ribs and pelvic osseous structures show no acute findings. There are | |bilateral hip arthroplasties. | | | |IMPRESSION - | |Stable posterior fusion from L4 through the SI joints and anterior fusion from | |L5 through S1. | | | |Dictated and Signed by: Neri Degroot MD | | Electronically signed: 01/02/2018 12:40 PM | + + + +---------+ + + | Performing | Address | City/State/Zipcode | Phone Number | | Organization | | | | + +---------+ + + | [facility] | | | | + +---------+ + + POC Glucose (01/02/2018 11:34 AM PDT) + +---------+ + + + | Component | Value | Ref Range | Performed | Pathologist | | | | | At | Signature | + +---------+ + + + | Glucose, | 173 (H) | 70 - 109 mg/dL | [...] | [address] | [place] | [phone] | | [facility] | | [address] | | | - LABORATORY | | | | + + + + + CBC with Differential (01/02/2018 6:08 AM PDT) + + + + + + | Component | Value | Ref Range | Performed | Pathologist | | | | | At | Signature | + + + + + + | White Blood | 8.7 | 4.0 - 11.0 K/uL | [facility] | | | Cells | | | [facility] | | | | | | MEDICAL | | | | | | CENTER - | | | | | | LABORATORY | | + + + + + + | Red Blood | 4.05 (L) | 4.30 - 5.70 | [facility] | | | Cells | | M/uL | [facility] | | | | | | MEDICAL | | | | | | CENTER - | | | | | | LABORATORY | | + + + + + + | Hemoglobin | 12.8 (L) | 13.5 - 18.0 | [facility] | | | | | g/dL | [facility] | | | | | | MEDICAL | | | | | | CENTER - | | | | | | LABORATORY | | + + + + + + | Hematocrit | 37.2 (L) | 40.0 - 51.0 % | [facility] | | | | | | [facility] | | | | | | MEDICAL | | | | | | CENTER - | | | | | | LABORATORY | | + + + + + + | MCV | 92.0 | 83.0 - 101.0 fL | [facility] | | | | | | [facility] | | | | | | MEDICAL | | | | | | CENTER - | | | | | | LABORATORY | | + + + + + + | MCH | 31.7 | 28.0 - 35.0 pg | [facility] | | | | | | [facility] | | | | | | [facility] | | | | | | CENTER - | | | | | | LABORATORY | | + + + + + + | MCHC | 34.5 | 32.0 - 36.0 | [facility] | | | | | g/dL | [facility] | | | | | | [facility] | | | | | | CENTER - | | | | | | LABORATORY | | + + + + + + | RDW-CV | 13.4 | <15.0 % | [facility] | | | | | | [facility] | | | | | | MED[facility] | | | | | | CENTER - | | | | | | LABORATORY | | + + + + + + | Platelet | 188 | 140 - 440 K/uL | [facility] | | | Count | | | [facility] | | | [facility] | | [facility]ICAL | | | | | | CENTER - | | | | | | LABORATORY | | + + + + + + | MPV | 9.4 | fL | [facility] | | | | | | [facility] | | | | | | MEDICAL | | | | | | CENTER - | | | | | | LABORATORY | | + + + + + + | % | 76.1 | 45.0 - 82.0 % | [facility] | | | Neutrophils | | | [facility] | | | | | | MEDICAL | | | | | | CENTER - | | | | | | LABORATORY | | + + + + + + | % | 13.4 (L) | 20.0 - 45.0 % | [facility] | | | Lymphocytes | | | [facility] | | | | | | MEDICAL | | | | | | CENTER - | | | | | | LABORATORY | | + + + + + + | % Monocytes | 8.8 | 4.0 - 12.0 % | [facility] | | | | | | [facility] | | | | | | MEDICAL | | | | | | CENTER - | | | | | | LABORATORY | | + + + + + + | % | 1.3 | 0.0 - 5.0 % | [facility] | | | Eosinophils | | | [facility] | | | | | | MEDICAL | | | | | | CENTER - | | | | | | LABORATORY | | + + + + + + | % Basophils | 0.4 | 0.0 - 1.0 % | [facility] | | | | | | [facility] | | | | | | [facility] | | | | | | CENTER - | | | | | | LABORATORY | | + + + + + + | Absolute | 6.60 | 1.80 - 8.50 | [facility] | | | Neutrophils | | K/uL | [facility] | | | | | | MEDICAL | | | | | | CENTER - | | | | | | LABORATORY | | + + + + + + | Absolute | 1.20 | 0.60 - 3.20 | [facility] | | | Lymphocytes | | K/uL | [facility] | | | | | | MEDICAL | | | | | | CENTER - | | | | | | LABORATORY | | + + + + + + | Absolute | 0.80 | 0.00 - 1.00 | [facility] | | | Monocytes | | K/uL | [facility] | | | | | | MEDICAL | | | | | | CENTER - | | | | | | LABORATORY | | + + + + + + | Absolute | 0.10 | 0.00 - 0.40 | [facility] | | | Eosinophils | | K/uL | [facility] | | | | | | MEDICAL | | | | | | CENTER - | | | | | | LABORATORY | | + + + + + + | Absolute | 0.00 | 0.00 - 0.10 | [facility] | | | Basophils | | K/uL | [facility] | | | | | | MEDICAL [...] [address] | [place] | [phone] | | [facility] | | [address] | | | - LABORATORY | | | | + + + + + C-Reactive Protein (01/02/2018 6:07 AM PDT) + + + + + + | Component | Value | Ref Range | Performed | Pathologist | | | | | At | Signature | + + + + + + | CRP | 125.57 (H) | <8.00 mg/L | [facility] | | | | | | [facility] | | | | | | MEDICAL [...] + | [facility] | [address] | [place] | [phone] | | [facility] | | [address] | | | - LABORATORY | | | | + + + + + Comprehensive Metabolic Panel (01/02/2018 6:07 AM PDT) + + + + + + | Component | Value | Ref Range | Performed | Pathologist | | | | | At | Signature | + + + + + + | Na | 136 | 136 - 149 | [facility] | | | | | mmol/L | [facility] | | | | | | MEDICAL | | | | | | CENTER - | | | | | | LABORATORY | | + + + + + + | K | 3.9 | 3.5 - 5.1 | [facility] | | | | | mmol/L | [facility] | | | | | | MEDICAL | | | | | | CENTER - | | | | | | LABORATORY | | + + + + + + | Cl | 101 | 98 - 109 mmol/L | [facility] | | | | | | [facility] | | | | | | [facility]ICAL | | | | | | CENTER - | | | | | | LABORATORY | | + + + + + + | CO2 | 29 | 24 - 31 mmol/L | [facility] | | | | | | [facility] | | | | | | MEDICAL | | | | | | CENTER - | | | | | | LABORATORY | | + + + + + + | Anion Gap | 6 | 3 - 16 mmol/L | [facility] | | | | | | [facility] | | | | | | MEDICAL | | | | | | CENTER - | | | | | | LABORATORY | | + + + + + + | Glucose | 197 (H) | 70 - 109 mg/dL | [facility] | | | | | | [facility] | | | | | | MEDICAL | | | | | | CENTER - | | | | | | LABORATORY | | + + + + + + | BUN | 9 | 7 - 18 mg/dL | [facility] | | | | | | [facility] | | | | | | MEDICAL | | | | | | CENTER - | | | | | | LABORATORY | | + + + + + + | Creatinine | 0.55 (L) | 0.60 - 1.30 | [facility] | [...] mL/min/1.73m2 | [facility] | | | [place] | RATE,ESTIMATED | | MEDICAL | | | | mL/min/1.16p7Ydzy than | | CENTER - | | [...] + + + + | Calcium | 8.4 | 8.3 - 10.5 | [facility] | | | | | mg/dL | [facility] | | | | | | MEDICAL | | | | | | CENTER - | | | | | | LABORATORY | | + + + + + + | Albumin | 2.8 (L) | 3.2 - 5.0 g/dL | [facility] | | | | | | [facility] | | | | | | MEDICAL | | | | | | CENTER - | | | | | | LABORATORY | | + + + + + + | Bilirubin | 0.9 | 0.1 - 1.5 mg/dL | [facility] | | | Total | | | [facility] | | | | | | MEDICAL | | | | | | CENTER - | | | | | | LABORATORY | | + + + + + + | Total | 5.6 (L) | 6.0 - 7.8 g/dL | [facility] | | | Protein | | | [facility] | | | | | | MEDICAL | | | | | | CENTER - | | | | | | LABORATORY | | + + + + + + | AST | 13 | 10 - 42 U/L | [facility] | | | | | | [facility] | | | | | | MEDICAL | | | | | | CENTER - | | | | | | LABORATORY | | + + + + + + | ALT | 12 | 6 - 45 U/L | [facility] | | | | | | [facility] | | | | | | MEDICAL | | | | | | CENTER - | | | | | | LABORATORY | | + + + + + + | Alkaline | 98 | 40 - 110 U/L | [facility] | | | Phosphatase | | | [facility] | | | | | | MEDICAL | | | | | | CENTER - | | | | | | LABORATORY | | + + + + + + | Globulin | 2.8 | 2.1 - 3.8 g/dL | [facility] | | | | | | [facility] | | | | | | MEDICAL | | | | | | CENTER - | | | | | | LABORATORY | | + + + + + + | Albumin/Moraima | 1.0 | 0.8 - 2.0 | [facility] | | | bulin Ratio | | | [facility] | | | | | | MEDICAL | | | | | | CENTER - | | | | | | LABORATORY | | + + + + + + | BUN/Creatin | 16.4 | | [facility] | | | ine Ratio | | | [facility] | | | | | | MEDICAL [...] [address] | [place] | [phone] | | [facility] | | [address] | | | - LABORATORY | | | | + + + + + POC Glucose (01/02/2018 2:54 AM PDT) + +---------+ + + + | Component | Value | Ref Range | Performed | Pathologist | | | | | At | Signature | + +---------+ + + + | Glucose, | 143 (H) | 70 - 109 mg/dL | [facility] | | | POC | | | [facility] | | | | | | MEDICAL [...] + | [facility] | [address] | [place] | [phone] | | [facility] | | [address] | | | - LABORATORY | | | | + + + + + POC Glucose (01/01/2018 8:49 PM PDT) + +---------+ + + + | Component | Value | Ref Range | Performed | Pathologist | | | | | At | Signature | + +---------+ + + + | Glucose, | 173 (H) | 70 - 109 mg/dL | [facility] | | | P[facility] | | | [facility] | | | | | | MED[facility] [...] + | [facility] | [address] | [place] | [phone] | | [facility] | | [address] | | | - LABORATORY | | | | + + + + + POC Glucose (01/01/2018 4:33 PM PDT) + +---------+ + + + | Component | Value | Ref Range | Performed | Pathologist | | | | | At | Signature | + +---------+ + + + | Glucose, | 208 (H) | 70 - 109 mg/dL | [...] [address] | [place] | [phone] | | [facility] | | [address] | | | - LABORATORY | | | | + + + + + POC Glucose (01/01/2018 12:07 PM PDT) + +---------+ + + + | Component | Value | Ref Range | Performed | Pathologist | | | | | At | Signature | + +---------+ + + + | Glucose, | 168 (H) | 70 - 109 mg/dL | [...] [address] | [place] | [phone] | | [facility] | | [address] | | | - LABORATORY | | | | + + + + + POC Glucose (01/01/2018 8:10 AM PDT) + +-------+ + + + | Component | Value | Ref Range | Performed | Pathologist | | | | | At | Signature | + +-------+ + + + | Glucose, | 102 | 70 - 109 mg/dL | [facility] | | | POC | | | [facility] | | | | | | MEDICAL [...] [facility] | [address] | [place], [place] | [phone] | | [facility] | | [address] | | | - LABORATORY | | | | + + + + + Culture, Anaerobic (01/01/2018 4:02 AM PDT) + + + + + + | Component | Value | Ref Range | Performed | Pathologist | | | | | At | Signature | + + + + + + | Culture | No anaerobes isolated. | | [facility] | | | | | | [facility] | | | | | | MEDICAL | | | | | | CENTER - | | | | | | LABORATORY | | + + + + + + + + | Specimen | + + | Body Fluid - Back | | structure, excluding | | neck (body | | structure) | + + + + + + + | Performing | Address | City/State/Zipcode | Phone Number | | Organization | | | | + + + + + | [facility] | [address] | [place], [place] | [phone] | | [facility] | | [address] | | | - LABORATORY | | | | + + + + + Culture, Wound, Smear (01/01/2018 4:02 AM PDT) + + + + + + | Component | Value | Ref Range | Performed | Pathologist | | | | | At | Signature | + + + + + + | Culture | No Growth | | [facility] | | | | | | [facility] | | | | | | MEDICAL | | | | | | CENTER - | | | | | | LABORATORY | | + + + + + + | Gram Stain | 1+ White Blood Cells | | [facility] | | | Result | | | [facility] | | | | | | MEDICAL | | | | | | CENTER - | | | | | | LABORATORY | | + + + + + + | Gram Stain | No squamous epithelial | | [facility] | | | Result | cells seen | | [facility] | | | | | | MEDICAL | | | | | | CENTER - | | | | | | LABORATORY | | + + + + + + | Gram Stain | No organisms seen | | [facility] | | | Result | | | [facility] | | | | | | MEDICAL | | | | | | CENTER - | | | | | | LABORATORY | | + + + + + + + + | Specimen | + + | Body Fluid - Back | | structure, excluding | | neck (body | | structure) | + + + + + + + | Performing | Address | City/State/Zipcode | Phone Number | | Organization | | | | + + + + + | [facility] | [address] | [place] | [phone] | | [facility] | | [address] | | | - LABORATORY | | | | + + + + + LABS - EXTERNAL SCAN (12/31/2017 12:00 AM PDT) + + + | Narrative | Performed At | + + + | Ordered by an | | | unspecified provider. | | + + + documented in this encounter Visit Diagnoses + + | Diagnosis | + + | Postoperative wound infection, subsequent encounter - Primary | + + | Type 2 diabetes mellitus with complication, unspecified whether longwall foreman insulin use | + + | MRSA (methicillin resistant Staphylococcus aureus) Methicillin resistant | | Staphylococcus aureus in conditions classified elsewhere and of unspecified site | + + documented in this encounter Administered Medications + +--------+ +--------+------+------+ | Medication Order | MAR | Action | Dose | Rate | Site | | | Action | Date | | | | + +--------+ +--------+------+------+ | acetaminophen (TYLENOL) tablet | Given | 01/05/20 | 650 mg | | | | 650 mg 650 mg, Oral, EVERY 4 | | 18 9:10 | | | | | HOURS PRN, Pain, Fever, Starting | | AM PDT | | | | | 01/01/18 at 0456, Post-op/Phase | | | | | | | II | | | | | | + +--------+ +--------+------+------+ +-------+ +--------+---+---+ | Given | 01/05/20 | 650 mg | | | | | 18 4:47 | | | | | | AM PDT | | | | +-------+ +--------+---+---+ | Given | 01/05/20 | 650 mg | | | | | 18 12:54 | | | | | | AM PDT | | | | +-------+ +--------+---+---+ +---+---+ | | | +---+---+ + +-------+ +-------+---+---+ | aspirin EC tablet 81 mg 81 mg, | Given | 01/05/20 | 81 mg | | | | Oral, DAILY, First dose on Sun | | 18 9:10 | | | | | 01/01/18 at 0900, Do not cut or | | AM PDT | | | | | crush., Post-op/Phase II | | | | | | + +-------+ +-------+---+---+ +-------+ +-------+---+---+ | Given | 01/04/20 | 81 mg | | | | | 18 8:14 | | | | | | AM PDT | | | | +-------+ +-------+---+---+ | Given | 01/03/20 | 81 mg | | | | | 18 8:41 | | | | | | AM PDT | | | | +-------+ +-------+---+---+ +---+---+ | | | +---+---+ + +---------+ +-----+-------+---+ | cefepime (MAXIPIME) 2 g in | New Bag | 01/05/20 | 2 g | 100 | | | sodium chloride 0.9% 50 mL IVPB | | 18 5:27 | | mL/hr | | | 2 g, Intravenous, Administer over | | AM PDT | | | | | 30 Minutes, EVERY 12 HOURS (2 | | | | | | | times per day), First dose on Sun | | | | | | | 01/01/18 at 0515, Activate system | | | | | | | and mix before use., | | | | | | | Post-op/Phase II, Indications: | | | | | | | Wound Dehiscence | | | | | | + +---------+ +-----+-------+---+ +---------+ +-----+-------+---+ | New Bag | 01/04/20 | 2 g | 100 | | | | 18 5:52 | | mL/hr | | | | PM PDT | | | | +---------+ +-----+-------+---+ | New Bag | 01/04/20 | 2 g | 100 | | | | 18 4:51 | | mL/hr | | | | AM PDT | | | | +---------+ +-----+-------+---+ +---+---+ | | | +---+---+ + +-------+ +--------+---+---+ | cholecalciferol (VITAMIN D-3) | Given | 01/05/20 | 2,000 | | | | tablet 2,000 Units 2,000 Units, | | 18 9:10 | Units | | | | Oral, DAILY, First dose on Sun | | AM PDT | | | | | 01/01/18 at 0900, Post-op/Phase II | | | | | | + +-------+ +--------+---+---+ +-------+ +--------+---+---+ | Given | 01/04/20 | 2,000 | | | | | 18 8:14 | Units | | | | | AM PDT | | | | +-------+ +--------+---+---+ | Given | 01/03/20 | 2,000 | | | | | 18 8:41 | Units | | | | | AM PDT | | | | +-------+ +--------+---+---+ +---+---+ | | | +---+---+ + +-------+ +-------+---+---+ | cyclobenzaprine (FLEXERIL) | Given | 01/05/20 | 10 mg | | | | tablet 10 mg 10 mg, Oral, EVERY | | 18 10:22 | | | | | 8 HOURS PRN, Muscle spasms, | | AM PDT | | | | | Starting 01/01/18 at 0456, | | | | | | | Post-op/Phase II | | | | | | + +-------+ +-------+---+---+ +-------+ +-------+---+---+ | Given | 01/04/20 | 10 mg | | | | | 18 5:09 | | | | | | AM PDT | | | | +-------+ +-------+---+---+ | Given | 01/02/20 | 10 mg | | | | | 18 8:58 | | | | | | PM PDT | | | | +-------+ +-------+---+---+ + +---+ | | | + +---+ | dextrose 50% injection 12.5 g | | | 12.5 g, Intravenous, PRN, Low | | | Blood Sugar, Starting 01/01/18 | | | at 0456, Post-op/Phase II | | + +---+ | | | + +---+ | diphenhydrAMINE (BENADRYL) 12.5 | | | mg/5 mL liquid 25 mg 25 mg, | | | Oral, EVERY 4 HOURS PRN, Itching, | | | Starting 01/01/18 at 0456, | | | Oral route is preferred., | | | Post-op/Phase II | | + +---+ | | | + +---+ | diphenhydrAMINE (BENADRYL) | | | injection 12.5 mg 12.5 mg, | | | Intravenous, EVERY 4 HOURS PRN, | | | Itching, Starting 01/01/18 at | | | 0456, Oral route is preferred., | | | Post-op/Phase II | | + +---+ | | | + +---+ | diphenhydrAMINE (BENADRYL) | | | tablet 25 mg 25 mg, Oral, EVERY | | | 4 HOURS PRN, Itching, Starting | | | 01/01/18 at 0456, Oral route is | | | preferred., Post-op/Phase II | | + +---+ | | | + +---+ + +-------+ +--------+---+---+ | docusate sodium (COLACE) | Given | 01/05/20 | 100 mg | | | | capsule 100 mg 100 mg, Oral, 2 | | 18 9:12 | | | | | TIMES DAILY, First dose on Sun | | AM PDT | | | | | 01/01/18 at 0900, First line agent | | | | | | | for constipation, Post-op/Phase | | | | | | | II | | | | | | + +-------+ +--------+---+---+ +-------+ +--------+---+---+ | Given | 01/04/20 | 100 mg | | | | | 18 8:58 | | | | | | PM PDT | | | | +-------+ +--------+---+---+ | Given | 01/04/20 | 100 mg | | | | | 18 8:13 | | | | | | AM PDT | | | | +-------+ +--------+---+---+ +---+---+ | | | +---+---+ + +-------+ +-------+---+---+ | DULoxetine (CYMBALTA) DR | Given | 01/05/20 | 60 mg | | | | capsule 60 mg 60 mg, Oral, | | 18 9:11 | | | | | DAILY, First dose on 01/01/18 | | AM PDT | | | | | at 0900, Do not open capsule., | | | | | | | Post-op/Phase II | | | | | | + +-------+ +-------+---+---+ +-------+ +-------+---+---+ | Given | 01/04/20 | 60 mg | | | | | 18 8:13 | | | | | | AM PDT | | | | +-------+ +-------+---+---+ | Given | 01/03/20 | 60 mg | | | | | 18 8:39 | | | | | | AM PDT | | | | +-------+ +-------+---+---+ +---+---+ | | | +---+---+ + +-------+ +-------+---+ + | enoxaparin (LOVENOX) 40 mg/0.4 | Given | 01/05/20 | 40 mg | | Abdomen- | | mL injection 40 mg 40 mg, | | 18 9:12 | | | LLQ | | Subcutaneous, EVERY 24 HOURS | | AM PDT | | | | | (Daily), First dose on Mon | | | | | | | 01/02/18 at 0700, Give first dose | | | | | | | within 20 hours of surgery end | | | | | | | time. Nursing/Pharmacy to retime | | | | | | | first dose to 1900 for surgeries | | | | | | | ending between 2200 and 0900. , | | | | | | | Post-op/Phase II | | | | | | + +-------+ +-------+---+ + +-------+ +-------+---+ + | Given | 01/04/20 | 40 mg | | Abdomen- | | | 18 8:14 | | | RUQ | | | AM PDT | | | | +-------+ +-------+---+ + | Given | 01/03/20 | 40 mg | | Abdomen- | | | 18 6:05 | | | RLQ | | | AM PDT | | | | +-------+ +-------+---+ + +---+---+ | | | +---+---+ + +-------+ +-------+---+---+ | famotidine (PEPCID) tablet 20 | Given | 01/05/20 | 20 mg | | | | mg 20 mg, Oral, 2 TIMES DAILY, | | 18 9:11 | | | | | First dose on 01/01/18 at 0900, | | AM PDT | | | | | Post-op/Phase II | | | | | | + +-------+ +-------+---+---+ +-------+ +-------+---+---+ | Given | 01/04/20 | 20 mg | | | | | 18 8:58 | | | | | | PM PDT | | | | +-------+ +-------+---+---+ | Given | 01/04/20 | 20 mg | | | | | 18 8:12 | | | | | | AM PDT | | | | +-------+ +-------+---+---+ +---+---+ | | | +---+---+ + +-------+ +--------+---+---+ | gabapentin (NEURONTIN) capsule | Given | 01/05/20 | 300 mg | | | | 300 mg 300 mg, Oral, 3 TIMES | | 18 9:09 | | | | | DAILY, First dose on 01/01/18 | | AM PDT | | | | | at 0900, Post-op/Phase II | | | | | | + +-------+ +--------+---+---+ +-------+ +--------+---+---+ | Given | 01/04/20 | 300 mg | | | | | 18 8:58 | | | | | | PM PDT | | | | +-------+ +--------+---+---+ | Given | 01/04/20 | 300 mg | | | | | 18 1:10 | | | | | | PM PDT | | | | +-------+ +--------+---+---+ +---+---+ | | | +---+---+ + +-------+ +---------+---+---+ | hydroCHLOROthiazide tablet 12.5 | Given | 01/05/20 | 12.5 mg | | | | mg 12.5 mg, Oral, DAILY, First | | 18 9:10 | | | | | dose on 01/01/18 at 0900, | | AM PDT | | | | | Post-op/Phase II | | | | | | + +-------+ +---------+---+---+ +-------+ +---------+---+---+ | Given | 01/04/20 | 12.5 mg | | | | | 18 8:12 | | | | | | AM PDT | | | | +-------+ +---------+---+---+ | Given | 01/03/20 | 12.5 mg | | | | | 18 8:38 | | | | | | AM PDT | | | | +-------+ +---------+---+---+ +---+---+ | | | +---+---+ + +-------+ + +---+ + | insulin glargine (LANTUS | Given | 01/05/20 | 40 Units | | Abdomen- | | SOLOSTAR) 100 units/mL injection | | 18 10:24 | | | LLQ | | (pen) 40 Units 40 Units, | | AM PDT | | | | | Subcutaneous, EVERY 12 HOURS (2 | | | | | | | times per day), First dose on Sun | | | | | | | 01/01/18 at 0900, For subcutaneous | | | | | | | use only. Basal (long acting) | | | | | | | insulin., Post-op/Phase II | | | | | | + +-------+ + +---+ + +-------+ + +---+ + | Given | 01/04/20 | 40 Units | | Abdomen- | | | 18 9:28 | | | LLQ | | | PM PDT | | | | +-------+ + +---+ + | Given | 01/04/20 | 40 Units | | Abdomen- | | | 18 8:15 | | | RUQ | | | AM PDT | | | | +-------+ + +---+ + +---+---+ | | | +---+---+ + +-------+ +---------+---+ + | insulin lispro (humaLOG | Given | 01/04/20 | 6 Units | | Arm-Left | | KWIKPEN) 100 units/mL injection | | 18 11:56 | | | Upper | | (pen) 0-18 Units 0-18 Units, | | AM PDT | | | | | Subcutaneous, 4 TIMES DAILY WITH | | | | | | | MEALS & NIGHTLY, First dose on | | | | | | | 01/01/18 at 0800, CORRECTION | | | | [...] | | | | | | | [id number] Use NIGHT DOSE for | | | | | | | doses scheduled: HS, 3AM, | | | | | | | Nighttime [id number], | | | | | | | Post-op/Phase II | | | | | | + +-------+ +---------+---+ + +-------+ +---------+---+ + | Given | 01/03/20 | 3 Units | | Arm-Righ | | | 18 5:21 | | | t Upper | | | PM PDT | | | | +-------+ +---------+---+ + | Given | 01/03/20 | 3 Units | | Arm-Left | | | 18 12:02 | | | Upper | | | PM PDT | | | | +-------+ +---------+---+ + +---+---+ | | | +---+---+ + +-------+ +-------+---+---+ | losartan (MARILEE) tablet 50 mg | Given | 01/05/20 | 50 mg | | | | 50 mg, Oral, DAILY, First dose | | 18 9:10 | | | | | on 01/01/18 at 0900, | | AM PDT | | | | | Post-op/Phase II | | | | | | + +-------+ +-------+---+---+ +-------+ +-------+---+---+ | Given | 01/04/20 | 50 mg | | | | | 18 8:13 | | | | | | AM PDT | | | | +-------+ +-------+---+---+ | Given | 01/03/20 | 50 mg | | | | | 18 8:40 | | | | | | AM PDT | | | | +-------+ +-------+---+---+ +---+---+ | | | +---+---+ + +-------+ +--------+---+---+ | magnesium oxide (MAG-OX) tablet | Given | 01/05/20 | 200 mg | | | | 200 mg 200 mg, Oral, DAILY, | | 18 9:10 | | | | | First dose on 01/01/18 at 0900, | | AM PDT | | | | | Post-op/Phase II | | | | | | + +-------+ +--------+---+---+ +-------+ +--------+---+---+ | Given | 01/04/20 | 200 mg | | | | | 18 8:12 | | | | | | AM PDT | | | | +-------+ +--------+---+---+ | Given | 01/03/20 | 200 mg | | | | | 18 8:40 | | | | | | AM PDT | | | | +-------+ +--------+---+---+ +---+---+ | | | +---+---+ + +-------+ + +---+---+ | metFORMIN (GLUCOPHAGE) tablet | Given | 01/05/20 | 1,000 mg | | | | 1,000 mg 1,000 mg, Oral, 2 TIMES | | 18 9:10 | | | | | DAILY WITH BREAKFAST & DINNER, | | AM PDT | | | | | First dose on 01/01/18 at 0800, | | | | | | | Follow hospital guidelines to | | | | | | | determine if metFORMIN should be | | | | | | | held following procedures using | | | | | | | IV iodinated contrast., | | | | | | | Post-op/Phase II | | | | | | + +-------+ + +---+---+ +-------+ + +---+---+ | Given | 01/04/20 | 1,000 mg | | | | | 18 4:42 | | | | | | PM PDT | | | | +-------+ + +---+---+ | Given | 01/04/20 | 1,000 mg | | | | | 18 8:12 | | | | | | AM PDT | | | | +-------+ + +---+---+ +---+---+ | | | +---+---+ + +-------+ + +---+---+ | methocarbamol (ROBAXIN) tablet | Given | 01/04/20 | 1,500 mg | | | | 1,500 mg 1,500 mg, Oral, EVERY 6 | | 18 8:13 | | | | | HOURS PRN, Muscle spasms, | | AM PDT | | | | | Starting 01/01/18 at 0456, | | | | | | | First line agent, Post-op/Phase | | | | | | | II | | | | | | + +-------+ + +---+---+ +-------+ + +---+---+ | Given | 01/03/20 | 1,500 mg | | | | | 18 8:17 | | | | | | PM PDT | | | | +-------+ + +---+---+ +---+---+ | | | +---+---+ + +-------+ +------+---+---+ | oxyCODONE (ROXICODONE) tablet | Given | 01/05/20 | 5 mg | | | | 5-20 mg 5-20 mg, Oral, EVERY 4 | | 18 10:22 | | | | | HOURS PRN, Pain, Starting Sun | | AM PDT | | | | | 01/01/18 at 0456, Post-op/Phase II | | | | | | + +-------+ +------+---+---+ +-------+ +-------+---+---+ | Given | 01/05/20 | 15 mg | | | | | 18 9:11 | | | | | | AM PDT | | | | +-------+ +-------+---+---+ | Given | 01/05/20 | 15 mg | | | | | 18 4:47 | | | | | | AM PDT | | | | +-------+ +-------+---+---+ +---+---+ | | | +---+---+ + +-------+ +-------+---+---+ | potassium chloride (KLOR-CON) | Given | 01/05/20 | 5 mEq | | | | ER tablet 5 mEq 5 mEq, Oral, | | 18 9:09 | | | | | DAILY, First dose on 01/01/18 | | AM PDT | | | | | at 0900, May take with food to | | | | | | | decrease GI upset., Post-op/Phase | | | | | | | II | | | | | | + +-------+ +-------+---+---+ +-------+ +-------+---+---+ | Given | 01/04/20 | 5 mEq | | | | | 18 8:12 | | | | | | AM PDT | | | | +-------+ +-------+---+---+ | Given | 01/03/20 | 5 mEq | | | | | 18 8:40 | | | | | | AM PDT | | | | +-------+ +-------+---+---+ +---+---+ | | | +---+---+ + +-------+ +--------+---+---+ | senna (SENOKOT) tablet 8.6 mg | Given | 01/05/20 | 8.6 mg | | | | 8.6 mg, Oral, EVERY MORNING, | | 18 9:10 | | | | | First dose on 01/01/18 at 0900, | | AM PDT | | | | | If docusate ineffective or not | | | | | | | ordered, Post-op/Phase II | | | | | | + +-------+ +--------+---+---+ +-------+ +--------+---+---+ | Given | 01/04/20 | 8.6 mg | | | | | 18 8:13 | | | | | | AM PDT | | | | +-------+ +--------+---+---+ | Given | 01/03/20 | 8.6 mg | | | | | 18 8:39 | | | | | | AM PDT | | | | +-------+ +--------+---+---+ +---+---+ | | | +---+---+ + +---------+ +---------+ +---+ | sodium chloride 0.9% (NS) | New Bag | 01/04/20 | 990 mLs | 75 mL/hr | | | infusion at 75 mL/hr, | | 18 4:43 | | | | | Intravenous, CONTINUOUS, Starting | | AM PDT | | | | | 01/01/18 at 0515, | | | | | | | Post-op/Phase II | | | | | | + +---------+ +---------+ +---+ + + +---+ +---+ | Restarted | 01/03/20 | | 75 mL/hr | | | | 18 3:08 | | | | | | PM PDT | | | | + + +---+ +---+ | New Bag | 01/03/20 | | 75 mL/hr | | | | 18 11:08 | | | | | | AM PDT | | | | + + +---+ +---+ +---+---+ | | | +---+---+ + +---------+ +-----+--------+---+ | vancomycin 1 g in sodium | New Bag | 01/02/20 | 1 g | 166.7 | | | chloride 0.9% 250 mL IVPB 1 g, | | 18 11:51 | | mL/hr | | | Intravenous, Administer over 90 | | AM PDT | | | | | Minutes, EVERY 12 HOURS INTERVAL, | | | | | | | First dose on 01/01/18 at | | | | | | | 1100, For 1 dose, Start 12 hours | | | | | | | after previous dose. Last dose | | | | | | | to be given within 24 hours of | | | | | | | surgery end time. Activate system | | | | | | | and mix before use., | | | | | | | Post-op/Phase II, Indications: | | | | | | | Surgical Prophylaxis | | | | | | + +---------+ +-----+--------+---+ +---+---+ | | | +---+---+ documented in this encounter
--- OUTSIDE RECORDS SUMMARY | ~2020-02-04 | XMS | Encounter Summary ---
Demographics + + + | Address | [address] | | | [place] [address] | + + + | Home Phone | | + + + | Preferred Language | Unknown | + + + | Marital Status | | + + + | Restoration Affiliation | 1013 | + + + | Race | White | + + + | Ethnic Group | Not or | + + + Author + + + | Author | [facility] | | | and [place] | + + + | Organization | [facility] | | [...] [address] [place] | | | | | [address] | | + + + + + | Leslie Lentz | ECON | Unknown | | + + + + + Care Team Providers + +------+ + | Care Slicing Machine Feeder Name | Role | Phone | + +------+ + PCP | Unavailable | + +------+ + Encounter Details +--------+ + + + + | Date | Type | Department | Care Team | Description | +--------+ + + + + | 10/20/ | Preadmit | [facility] | Kai Gillespie MD | Preoperative | | 2017 | Visit | [facility] | [address] | clearance (Primary | | | | CLINIC [address] | [place] [address] | Dx); Essential | | | | [place] | [phone] | hypertension; | | | | [address] | | Diabetes mellitus of | | | | | | other type with | | | | | | complication, | | | | | | unspecified long | | | | | | term insulin use | | | | | | status ([facility]); Lumbar | | | | | | [...] | ECG 12 LEAD | Routin | 10/20/2016 | Essential | Results for this | | | e | 5:03 PM | hypertension | procedure are in [...] + | CULTURE, MRSA | Routin | 10/20/2016 | Preoperative | Results for this | | | e | 4:56 PM | clearance | procedure are in the | | | | PDT | | results section. | + +--------+ + + + | CBC WITH | Routin | 10/20/2016 | Essential | Results for this | | DIFFERENTIAL | e | 4:56 PM | hypertension | procedure are in the | | | | PDT | Diabetes mellitus of | results section. | | | | | other type with | | | | | | complication, | | | | | | unspecified long | | | | | | term insulin use | | | | | | status ([facility]) Lumbar | | | | | | facet joint pain | | | | | | Lumbar radiculopathy | | | | | | MRSA (methicillin | | | | | | resistant | | | | | | Staphylococcus | | | | | | aureus) | | + +--------+ + + + | BASIC METABOLIC | Routin | 10/20/2016 | Essential | Results for this | | PANEL | e | 4:56 PM | hypertension | procedure are in [...] + + documented in this encounter Results ECG 12 lead (10/20/2016 5:03 PM PDT) + + + + + + | Component | Value | Ref Range | Performed | Pathologist | | | | | At | Signature | + + + + + + | VENTRICULAR | 82 | BPM | [facility] | | | RATE EKG | | | | | + + + + + + | ATRIAL RATE | 82 | BPM | [facility] | | + + + + + + | P-R | 194 | ms | [facility] | | | INTERVAL | | | | | + + + + + + | QRS | 104 | ms | [facility] | | | DURATION | | | | | + + + + + + | Q-T | 386 | ms | [facility] | | | INTERVAL | | | | | + + + + + + | Q-T | 450 | ms | [facility] | | | INTERVAL | | | | | | (CORRECTED) | | | | | + + + + + + | P WAVE AXIS | 53 | degrees | [facility] | | + + + + + + | QRS AXIS | -5 | degrees | [facility] | | + + + + + + | T AXIS | 38 | degrees | [facility] | | + + + + + + | INTERPRETAT | Normal sinus | | [facility] | | | ION TEXT | rhythmPossible Inferior | | | | | | infarct , age | | | | | | undeterminedNo previous | | | | | | ECGs availableConfirmed | | | | | | by SAÚL MILLAN MD | | | | | | ([id number]) on 10/21/2016 | | | | | | 7:08:44 AM | | | | + + [...] + +---------+ + + CBC with Differential (10/20/2016 4:56 PM PDT) + +---------+ + + + | Component | Value | Ref Range | Performed | Pathologist | | | | | At | Signature | + +---------+ + + + | White Blood | 6.4 | 4.0 - 11.0 K/uL | [facility] | | | Cells | | | [facility] | | | | | | [facility] | | | | | [facility] - | | | | | | LAB[facility]ATORY | | + +---------+ + + + | Red Blood | 5.51 | 4.30 - 5.70 | [facility] | | | Cells | | M/uL | [facility] | | | | | | [facility] | | | | | | [facility] - | | | | | | LABORATORY | | + +---------+ + + + | Hemoglobin | 17.0 | 13.5 - 18.0 | [facility] | | | | | g/dL | [facility] | | | | | | [facility] | | | | | | [facility] - | | | | | | LABORATORY | | + +---------+ + + + | Hematocrit | 49.6 | 40.0 - 51.0 % | [facility] | | | | | | [facility] | | | | | | [facility] | | | | | | [facility] - | | | | | | LAB[facility]ATORY | | + +---------+ + + + | MCV | 90.0 | 83.0 - 101.0 fL | [facility] | | | | | | [facility] | | | | | | [facility] | | | | | | [facility] - | | | | | | LABORATORY | | + +---------+ + + + | MCH | 30.9 | 28.0 - 35.0 pg | [facility] | | | | | | [facility] | | | | | | [facility] | | | | | | [facility] - | | | | | | LAB[facility]ATORY | | + +---------+ + + + | MCHC | 34.3 | 32.0 - 36.0 | [facility] | | | | | g/dL | [facility] | | | | | | [facility] | | | | | | [facility] - | | | | | | LABORATORY | | + +---------+ + + + | RDW-CV | 12.9 | <15.0 % | [facility] | | | | | | [facility] | | | | | | [facility] | | | | | | [facility] - | | | | | | LABORATORY | | + +---------+ + + + | Platelet | 117 (L) | 140 - 440 K/uL | [facility] | | | Count | | | [facility] | | | | | | [facility] | | | | | | [facility] - | | | | | | LABORATORY | | + +---------+ + + + | MPV | 11.4 | fL | [facility] | | | | | | [facility] | | | | | | [facility] | | | | | | [facility] - | | | | | | LAB[facility]ATORY | | + +---------+ + + + | % | 64.4 | 45.0 - 82.0 % | [facility] | | | Neutrophils | | | [facility] | | | | | | [facility] | | | | | | C[facility] - | | | | | | LABORATORY | | + +---------+ + + + | % | 26.1 | 20.0 - 45.0 % | [facility] | | | Lymphocytes | | | [facility] | | | | | | [facility] | | | | | | [facility] - | | | | | | LABORATORY | | + +---------+ + + + | % Monocytes | 7.7 | 4.0 - 12.0 % | [facility] | | | | | | [facility] | | | | | | [facility] | | | | | | [facility] - | | | | | | LABORATORY | | + +---------+ + + + | % | 1.0 | 0.0 - 5.0 % | [facility] | | | Eosinophils | | | [facility] | | | | | | [facility] | | | | | | C[facility] - | | | | | | LABORATORY | | + +---------+ + + + | % Basophils | 0.8 | 0.0 - 1.0 % | [facility] | | | | | | [facility] | | | | | | [facility] | | | | | | [facility] - | | | | | | LABORATORY | | + +---------+ + + + | Absolute | 4.10 | 1.80 - 8.50 | [facility] | | | Neutrophils | | K/uL | [facility] | | | | | | [facility] | | | | | | C[facility] - | | | | | | LABORATORY | | + +---------+ + + + | Absolute | 1.70 | 0.60 - 3.20 | [facility] | | | Lymphocytes | | K/uL | [facility] | | | | | | [facility] | | | | | | [facility] - | | | | | | LABORATORY | | + +---------+ + + + | Absolute | 0.50 | 0.00 - 1.00 | [facility] | | | Monocytes | | K/uL | [facility] | | | | | | [facility] | | | | | | [facility] - | | | | | | LABORATORY | | + +---------+ + + + | Absolute | 0.10 | 0.00 - 0.40 | [facility] | | | Eosinophils | | K/uL | [facility] | | | | | | [facility] | | | | | | C[facility] - | | | | | | LABORATORY | | + +---------+ + + + | Absolute | 0.00 | 0.00 - 0.10 | [facility] | | | Basophils | | K/uL | [facility] | [...] [address] | [place] | [phone] | | [facility] | | [address] | | | - LABORATORY | | | | + + + + + Basic Metabolic Panel (10/20/2016 4:56 PM PDT) + + + + + + | Component | Value | Ref Range | Performed | Pathologist | | | | | At | Signature | + + + + + + | Na | 133 (L) | 136 - 149 | [facility] | | | | | mmol/L | [facility] | | | | | | [facility] | | | | | | C[facility] - | | | | | | LABORATORY | | + + + + + + | K | 4.0 | 3.5 - 5.1 | [facility] | | | | | mmol/L | [facility] | | | | | | [facility] | | | | | | C[facility] - | | | | | | LABORATORY | | + + + + + + | Cl | 98 | 98 - 109 mmol/L | [facility] | | | | | | [facility] | | | | | | [facility] | | | | | | CENTER - | | | | | | LABORATORY | | + + + + + + | CO2 | 28 | 24 - 31 mmol/L | [facility] | | | | | | [facility] | | | | | | [facility] | | | | | | [facility] - | | | | | | LABORATORY | | + + + + + + | Anion Gap | 7 | 3 - 16 mmol/L | [facility] | | | | | | [facility] | | | | | | [facility] | | | | | | [facility] - | | | | | | LABORATORY | | + + + + + + | Glucose | 293 (H) | 70 - 109 mg/dL | [facility] | | | | | | [facility] | | | | | | MEDICAL | | | | | | CENTER - | | | | | | LABORATORY | | + + + + + + | BUN | 15 | 7 - 18 mg/dL | [facility] | | | | | | [facility] | | | | | | MEDICAL | | | | | | CENTER - | | | | | | LABORATORY | | + + + + + + | Creatinine | 0.66 | 0.60 - 1.30 | [facility] | | | | | mg/dL | [facility] | | | | | | MEDICAL | | | | | | CENTER - | | | | | | LABORATORY | | + + + + + + | eGFR, | >60Comment: GLOMERULAR | >=60 | [facility] | | | non- | FILTRATION | mL/min/1.73m2 | [facility] | | | C[facility]ro | RATE,ESTIMATED | | MEDICAL | | | | mL/min/1.05w5Uqaj than | | CENTER - | | [...] + + + + | Calcium | 9.1 | 8.3 - 10.5 | [facility] | | | | | mg/dL | [facility] | | | | | | MEDICAL | | | | | | CENTER - | | | | | | LABORATORY | | + + + + + + | BUN/Creatin | 22.7 | | [facility] | | | ine Ratio | | | [facility] | | | [...] | [facility] | [address] | [place] | [phone] | | [facility] | | [address] | | | - LABORATORY | | | | + + + + + Culture, MRSA (10/20/2016 4:56 PM PDT) + + + + + + | Component | Value | Ref Range | Performed | Pathologist | | | | | At | Signature | + + + + + + | Culture | Negative for MRSA by | | [facility] | | | | chromogenic agar method | | [facility] | | | | | | [facility] | | | | | | CENTER - | | | | | | LABORATORY | | + + + + + + + + | Specimen | + + | Respiratory - Both | | anterior nares (body | | structure) | + + + + + + + | Performing | Address | City/State/Zipcode | Phone Number | | Organization | | | | + + + + + | [facility] 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
--- OUTSIDE RECORDS SUMMARY | ~2020-02-04 | XMS | Encounter Summary ---
Demographics + + + | Address | [address] | | | [place] [address] | + + + | Home Phone | | + + + | Preferred Language | Unknown | + + + | Marital Status | | + + + | Mandaeism Affiliation | CHR | + + + | Race | White | + + + | Ethnic Group | Not or | + + + Author + + + | Author | [facility] | + + + | Organization | [facility] | + + + | Address | Unknown | + + + | Phone | Unavailable | + + + Support + + +---------+ + | Name | Relationship | Address | Phone | + + +---------+ + | Leslie Lentz | ECON | Unknown | | + + +---------+ + Care Team Providers + +------+ + | Care Horse Farm Manager Name | Role | Phone | + +------+ + | Aggie Dunn WATERWAY TRAFFIC CHECKER | PCP | | + +------+ + [...] + + | 12/06/ | Anesthesia | [facility] INTRA OP LOC | Pito Laureano, | | | 2019 | Event | [address] | [address] | | | | | [facility] | Joni Dubon | | | | | [place] [address] | [place], [place] | | | | | | [address] | | | | | | [phone] | | | | | | | | | | | | Larissa Benitez, | | | | | | BISQUE GRADER [address] | | | | | | [address] | | | | | | [place], [place] | | | | | | [address] | | | | | | [phone] | | | | | | | | +--------+ + + + + Anesthesia Record + + + + + | Procedure Name | Responsible | Anesthesia Start | Anesthesia Stop Time | | | Anesthesiologist | Time | | + + + + + | 23G VITRECTOMY, ENDO | Pito Laureano MD | 12/07/19 1544 | 12/07/19 1820 | | LASER, SCLERAL | | | | | BUCKLE, 20% SF6 GAS | | | | | LEFT *23G* (ZEISS) | | | | | (Left Eye) | | | | + + + + + +----+---+ + + | Da | T | Event | Comment | | te | i | | | | | m | | | | | e | | | +----+---+ + + | 08 | 1 | Eq Check | Anesthesia machine checked Equipment verified | | /1 | 5 | | | | 4/ | 1 | | | | 20 | 1 | | | | 20 | | | | +----+---+ + + | | 1 | Pt. Check | Prior to anesthesia start, pt. Identified, examined, chart | | | 5 | | reviewed, PARQ held, anesthetic plan made or approved by | | | 4 | | attending anesthesiologist. NPO status confirmed as appropriate | | | 0 | | for procedure Preoperative evaluation: unchanged | +----+---+ + + | | 1 | An Start | | | | 5 | | | | | 4 | | | | | 4 | | | +----+---+ + + | | 1 | An Start | | | | 5 | Data | | | | 4 | | | | | 6 | | | +----+---+ + + | | 1 | Vitals | Monitors applied Vital signs checked Patient ready for anesthesia | | | 5 | Checked | | | | 4 | | | | | 9 | | | +----+---+ + + | | 1 | O2 by NC | | | | 5 | | | | | 4 | | | | | 9 | | | +----+---+ + + | | 1 | Quick CEI | a) Monitors Placed b) Arms <90 degrees c) Warm Blankets placed | | | 5 | | Upper and Lower Body d) Bed Turned 90 Degrees | | | 4 | | | | | 9 | | | +----+---+ + + | | 1 | Ready | | | | 5 | | | | | 4 | | | | | 9 | | | +----+---+ + + | | 1 | Abx held | | | | 5 | Not Ordered | | | | 5 | | | | | 3 | | | +----+---+ + + | | 1 | Retrobulbar | | | | 5 | Block by | | | | 5 | Surgeon | | | | 4 | | | +----+---+ + + | | 1 | Incision | Laser procedure on right eye started | | | 5 | | | | | 5 | | | | | 7 | | | +----+---+ + + | | 1 | Quick Note | Surgery on left eye started | | | 6 | | | | | 2 | | | | | 8 | | | +----+---+ + + | | 1 | Intraop and | - Patient/Allergies/Procedure - Relevant PMH - Relevant data | | | 6 | Med | (labs/imaging) - Anesthetic (airway, infusions, drug redoses) - | | | 4 | Handoff | Lines/Drains - I/O - Current Phase and significant events - | | | 5 | | Emergence/dispo plans, post-op concerns Fentanyl - none | | | | | Hydromorphone - none Other | +----+---+ + + | | 1 | Surgery end | | | | 8 | | | | | 1 | | | | | 3 | | | +----+---+ + + | | 1 | an stop | | | | 8 | data | | | | 1 | | | | | 5 | | | +----+---+ + + | | 1 | PACU Rpt | | | | 8 | Given | | | | 2 | | | | | 0 | | | +----+---+ + + | | 1 | Anesthesia | | | | 8 | End | | | | 2 | | | | | 0 | | | +----+---+ + + +------+ | Meds | +------+ + + + | Name | Total | + + + | propofoL (DIPRIVAN) 200 mg | 70 mg | + + + | propofoL (DIPRIVAN) 200 mg | 39,200 mcg | + + + | alfentanil | 1,000 mcg | + + + | midazolam | 2 mg | + + + | ketorolac | 30 mg | + + + | ondansetron | 4 mg | + + + | lactated ringers (LR) infusion | 0 mL | + + + + + | Name | + + | O2 FR Avance (Total Liters) | + + + + | No blood administrations on file. | + + +--------+ + + + | Type | Details | Placement | Removal | +--------+ + + + | Periph | 12/07/19; 1438; Jennifer Griffin RN ; | 12/07/19 1438 by | 12/07/191929 by Nuria | | eral | Left; Wrist; 22 g; No; None; No; | Edelmira Griffin RN | [facility] | | IV | Positive; 12/07/19; 1929 | | | +--------+ + + + | Incisi | 12/07/19; 1552; Left; eye; | 12/07/19 1552 by | 12/07/192005 by Nuria | | on | 12/07/19; 2005 | Sun Paulino RN | [facility] | +--------+ + + + documented in [...] encounter OR Notes Anesthesia Postprocedure Evaluation - Pito Laureano MD - 12/07/2019 6:20 PM PDTFormatt ing of this note might be different from the original. Fredis Mustafa [id number] Vitals Value Taken Time BP 121/80 12/07/2019 2:14 PM Temp 36.6 C (97.9 F) 12/07/2019 2:14 PM Pulse 80 12/07/2019 2:14 PM Resp 18 12/07/2019 2:14 PM SpO2 96 % 12/07/2019 2:14 PM EVALUATION VS (BP, HR, RR, SpO2, and Temp) and hydration status are stable ROS including Cards, Resp, Neuro, and GI without evidence of adverse effects No PONV Pain controlled No altered mental status COMPLICATIONS No adverse events nesthesia Preproced ure Evaluation - Larissa Benitez, SUNNY - 12/07/2019 3:39 PM PDTFormatting of this note mi ght be different from the original. Fredis Billings Ramsey [id number] Allergies Allergen Reactions Morphine Angioedema Codeine Rash "makes my skin crawl" NPO: before MN Last Vitals Temp: 36.6 C (97.9 F) Heart Rate: 80 Resp: 18 BP: 121/80 SpO2: 96 % Preg Status/LMP /Could Be : Not HCG Test: Not performed Patient Active Problem List Diagnosis Retinal detachment, left Severe nonproliferative diabetic retinopathy [...] Current Medication List Name Sig Last Dose CEFPODOXIME 200 MG TABLET 12/07/2019 CYCLOBENZAPRINE 10 MG TABLET take 1/2-1 tablet by mouth three times a day (DO NOT TAKE WHIL E WORKING OR DRIVING) 12/07/2019 DULOXETINE 60 MG CAPSULE,DELAYED RELEASE 12/07/2019 GABAPENTIN 300 MG CAPSULE 12/06/2019 HYDROCODONE 10 MG-ACETAMINOPHEN 325 MG TABLET take 1-2 tablets by mouth every 8 hours if ne eded for pain Not Taking IBUPROFEN 600 MG TABLET Not Taking IRBESARTAN 150 MG-HYDROCHLOROTHIAZIDE 12.5 MG TABLET 12/07/2019 LEVEMIR U-100 INSULIN 100 UNIT/ML SUBCUTANEOUS SOLUTION Unknown LORAZEPAM 1 MG TABLET take 1/2 to 1 tablet by mouth twice a day Unknown METFORMIN 1,000 MG TABLET Unknown TRAMADOL 50 MG TABLET Unknown No results found for: RATE, ATRIALRATE, LA, QRS, QT, QTC, PAXIS, RAXIS, TAXIS, EKGDX ANESTHESIA PLAN ASA 3 NPO Status: NPO by protocol ANESTHETIC TECHNIQUE Technique Used: MAC MONITORS/LINES TO BE USED Standard POSTOP PAIN Oral analgesics INFORMED CONSENT PARQ and risks/benefits of anesthetic plan discussed with Patient Dental Risk discussed with patient PATIENT'S CODE STATUS IN OR FULL - full code documented in this e ncounter Miscellaneous Notes PMC/ANE PreOp Note - Larissa Benitez CRNA - 12/07/2019 3:04 PM PDTROS: HPI: PMH: - COVID 19 pneumonia [...] No distress LOC: Alert Airway: Dentition: dentures-upper Mallampati: 1 Mouth Opening: > 3 cm TM Distance:> 6 cm C-Spine ROM: Limited extension Neck Anatomy: Normal Pulmonary: Respiratory: pulmonary exam normal Breath Sounds: decreased breath sounds Cardiovascular: Rhythm: Regular Rate: Normal documented in thi s encounter Plan of Treatment Not on filedocumented as of this encounter Visit Diagnoses Not on filedocumented in this encounter Administered Medications + +--------+ +---------+------+------+ | Medication Order | MAR | Action | Dose | Rate | Site | | | Action | Date | | | | + +--------+ +---------+------+------+ | alfentaniL (ALFENTA) injection | Given | 12/07/19 | 500 mcg | | | | INTRAPROCEDURE PRN, Starting Fri | | 20 3:51 | | | | | 12/07/19 at 1550, Until Fri | | PM PDT | | | | | 12/07/19 at 1820 | | | | | | + +--------+ +---------+------+------+ +-------+ +---------+---+---+ | Given | 12/07/19 | 500 mcg | | | | | 20 3:50 | | | | | | PM PDT | | | | +-------+ +---------+---+---+ +---+---+ | | | +---+---+ + +-------+ +-------+---+---+ | ketorolac (TORADOL) injection | Given | 12/07/19 | 30 mg | | | | INTRAPROCEDURE PRN, Starting Fri | | 20 5:46 | | | | | 12/07/19 at 1746, Until Fri | | PM PDT | | | | | 12/07/19 at 1820 | | | | | | + +-------+ +-------+---+---+ +---+---+ | | | +---+---+ + +-------+ +------+---+---+ | midazolam (PF) (VERSED) | Given | 12/07/19 | 2 mg | | | | injection INTRAPROCEDURE PRN, | | 20 3:44 | | | | | Starting 12/07/19 at 1544, | | PM PDT | | | | | Until 12/07/19 at 1820 | | | | | | + +-------+ +------+---+---+ +---+---+ | | | +---+---+ + +-------+ +------+---+---+ | ondansetron (ZOFRAN) injection | Given | 12/07/19 | 4 mg | | | | INTRAPROCEDURE PRN, Starting Fri | | 20 6:11 | | | | | 12/07/19 at 1811, Until Fri | | PM PDT | | | | | 12/07/19 at 1820 | | | | | | + +-------+ +------+---+---+ +---+---+ | | | +---+---+ + +-------+ +-------+---+---+ | propofoL (DIPRIVAN) 200 mg | Bolus | 12/07/19 | 10 mg | | | | INTRAPROCEDURE CONTINUOUS PRN, | | 20 5:04 | | | | | Starting Tue12/07/19 at 1552, | | PM PDT | | | | | Until Tue12/07/19 at 1820 | | | | | | + +-------+ +-------+---+---+ +-------+ +-------+---+---+ | Bolus | 12/07/19 | 10 mg | | | | | 20 5:00 | | | | | | PM PDT | | | | +-------+ +-------+---+---+ | Bolus | 12/07/19 | 20 mg | | | | | 20 3:53 | | | | | | PM PDT | | | | +-------+ +-------+---+---+ +---+---+ | | | +---+---+ + +---------+ + +---+---+ | propofoL (DIPRIVAN) 200 mg | New Bag | 12/07/19 | 5 | | | | INTRAPROCEDURE CONTINUOUS PRN, | | 20 5:16 | mcg/kg/m | | | | Starting Tue12/07/19 at 1716, | | PM PDT | in | | | | Until Tue12/07/19 at 1820 | | | | | | + +---------+ + +---+---+ +---+---+ | | | +---+---+ documented in this encounter
--- OUTSIDE RECORDS SUMMARY | ~2020-02-04 | XMS | Encounter Summary ---
Demographics + + + | Address | [address] | | | [place] [address] | + + + | Home Phone | | + + + | Preferred Language | Unknown | + + + | Marital Status | | + + + | Lutheran Affiliation | 1013 | + + + | Race | White | + + + | Ethnic Group | Not or | + + + Author + + + | Author | [facility] | | | and [place] | + + + | Organization | [facility] | | | and [...] [address] | | | | | [address] | | + + + + + | Leslie Lentz | ECON | Unknown | | + + + + + Care Team Providers + +------+ + | Care Service Tester Name | Role | Phone | + +------+ + PCP | Unavailable | + +------+ + Encounter Details +--------+ + + + + | Date | Type | Department | Care Team | Description | +--------+ + + + + | 06/29/ | Hospital | [facility] | Conversion | Pain | | 2018 | Encounter | [address]VERSION [address] | Transaction, | | | | | [address] | Provider Unknown | | | | | [place] | [phone] | | | | | [address] | | | | | | [phone] | | | +--------+ + + + [...] + +--------+ + + + | MRI THORACIC SPINE | Routin | 06/29/2017 | | Results for this | | WO CONTRAST | e | 11:14 PM | | procedure are in the | | | | PST | | results section. | + +--------+ + + + documented in this encounter Results MRI Thoracic Spine wo Contrast (06/29/2017 11:14 PM PST) + + | Specimen | [...] + | Diagnosis | + + | Pain Generalized pain | + + documented in this encounter"
--- OUTSIDE RECORDS SUMMARY | ~2020-02-04 | XMS | Encounter Summary ---
Demographics + + + | Address | [address] | | | [place] [address] | + + + | Home Phone | | + + + | Preferred Language | Unknown | + + + | Marital Status | | + + + | Jewish Affiliation | 1013 | + + + | Race | White | + + + | Ethnic Group | Not or | + + + Author + + + | Author | [facility] | | | and [place] | + + + | Organization | [facility] | | [...] [place] | | | | | [address] | | + + + + + | Leslie Lentz | ECON | Unknown | | + + + + + Care Team Providers + +------+ + | Care Key Filer Name | Role | Phone | + +------+ + | Paulo Rothman MD | PCP | | + +------+ + Reason for Visit + +--------+ + | Reason | Onset | Comments | | | Date | | + +--------+ + | ED Follow-up | 12/31/ | | | | 2017 | | + +--------+ + Encounter Details +--------+ + + + + | Date | Type | Department | Care Team | Description | +--------+ + + + + | 12/31/ | Telephone | [facility] | Kai Gillespie MD | ED Follow-up | | 2018 | | NEUROSURGERY [address] | [address] | | | | | [address] [facility] [address] | [place] [address] | | | | | [place] | [phone] | | | | | [address] | | | | | | [phone] | | | +--------+ + + + [...] this encounter Miscellaneous Notes Telephone Encounter - Kai Gillespie MD - 12/31/2017 11:58 PM PDTReceived a call from [facility] ED . They felt Lele Mustafa was "septic" and requested transfer for his abdominal in cision. I asked repeatedly why they felt he was "septic" but was unable to be provided an a nswer except that they were a critical access hospital, he had surgery here, and a history o f mrsa. None of that is indicative of sepsis. I would suggest evaluation in the ED here due to lack of medical access to basic care with assessment of abdominal wound by general surgery. I would be happy to assess his lumbar inc isions. If sepsis is present in our ED, I would request hospitalist assistance with this pa tient. Kai Gillespie documented in this encou nter Plan of Treatment Not on filedocumented as of this encounter Visit Diagnoses Not on filedocumented in this encounter
--- OUTSIDE RECORDS SUMMARY | ~2020-02-04 | XMS | Encounter Summary ---
Demographics + + + | Address | [address] | | | [place] [address] | + + + | Home Phone [...] [address] | | | | | [address] | | + + + + + | Leslie Lentz | ECON | Unknown | | + + + + + Care Team Providers + +------+ + | Care Hairspring Studder Name | Role | Phone | + +------+ + PCP | Unavailable | + +------+ + Encounter Details +--------+ + + + + | Date | Type | Department | Care Team | Description | +--------+ + + + + | 12/16/ | Hospital | [facility] | Conversion | Diagnosis unknown | | 2016 | Encounter | CONVERSION [address] | Transaction, | | | | | [address] | Provider Unknown | | | | | [place] | [phone] | | | | | [address] | | | | | | [phone] | | | +--------+ + + + [...] MRI LUMBAR SPINE WO | Routin | 11/06/2015 | | Results for this | | CONTRAST | e | 4:24 PM | | procedure are in the | | | | PDT | | results section. | + +--------+ + + + documented in this encounter Results MRI Lumbar Spine wo Contrast (11/06/2015 4:24 PM PDT) + + | Specimen | + + | | + + + + + | Narrative | Performed At | + + + | This is a non-reportable procedure without a radiologist report and | | | is used for image storage only | | + + + + + | Procedure Note | + + | Juni Mcintosh Conversion - 12/07/2018 1:25 PM PDT This is a non-reportable procedure | | without a radiologist report and isused for image storage only | + + documented in this encounter Visit Diagnoses + + | Diagnosis | + + | Diagnosis unknown Other unknown and unspecified cause of morbidity or mortality | + + documented in this encounter"
--- OUTSIDE RECORDS SUMMARY | ~2020-02-04 | XMS | Encounter Summary ---
Demographics + + + | Address | [address] | | | [place] [address] | + + + | Home Phone | | + + + | Preferred Language | Unknown | + + + | Marital Status | | + + + | Religion Affiliation | 1013 | + + + | Race | White | + + + | Ethnic Group | Not or | + + + Author + + + | Author | [facility] | | | and [place] | + + + | Organization | [facility] | | | [...] [address] [place] | | | | | [address] | | + + + + + | Leslie Lentz | ECON | Unknown | | + + + + + Care Team Providers + +------+ + | Care Vp Product Name | Role | Phone | + [...] | | | | | | | RI ARTHDSIS | | | | | | | POST/POSTERO | | | | | | | LATRL/POSTIN | | | | | | | TERBODY | | | | | | | LUMBAR RI | | | | | | | SPINE | | | | | | | FUSN,POST | | | | | | | TECH,EA | | | | | | | ADDNL SGMT | | | | | | | RI LUMBAR | | | | | | [...] | | | | | | SEG RI | | | | | | | LAMINEC/FACE | | | | | | | TECT/FORAMIN | | | | | | | ,EACH ADDNL | | | | | | | RI INSJ | | | | | | | BIOMCHN DEV | | | | | | | INTERVERTEBR | | | | | | | AL DSC SPC | | | | | | | W/ARTHRD RI | | | | | | | [...] | +--------+ + + + + | 11/11/ | Anesthesia | [facility] | Vasiliy Romero | | | 2017 | Event | [facility] CTR [facility] OP | Paulo BARBER MD [address] | | | | | [address] | [address] [place] | | | | | [place], [place] | [place] [address] | | | | | [address] | [phone] | | | | | [phone] | | | | | | | Abdiel Evans, | | | | | | [address] | | | | | | [place] | | | | | | [address] | | | | | | | | +--------+ + + + + Anesthesia Record + + + + + | Procedure Name | Responsible | Anesthesia Start | Anesthesia Stop Time | | | Anesthesiologist | Time | | + + + + + | L3-4 Lateral | Vasiliy Romero | 11/11/16 1130 | 11/11/16 1641 | | Anterior Interbody | II, MD | | | | Fusion, L3-4 Lumbar | | | | | Decompression & | | | | | Fusion, L5-S1 | | | | | Transforaminal | | | | | Lumbar Interbody | | | | | Fusion (Left Spine | | | | | Lumbar) | | | | + + + + + +----+---+ + + | Da | T | Event | Comment | | te | i | | | | | m | | | | | e | | | +----+---+ + + | 07 | 1 | An Checkout | Pre-use anesthesia machine/equipment checkout. | | /2 | 1 | | | | 0/ | 0 | | | | 20 | 5 | | | | 17 | | | | +----+---+ + + | | 1 | | | | | 1 | | | | | 2 | | | | | 6 | | | +----+---+ + + | | 1 | Antibiotic | | | | 1 | Given | | | | 2 | | | | | 7 | | | +----+---+ + + | | 1 | An Start | Versed 2 mg IV in SDS 7, then to OR 2 with sedated patient. | | | 1 | | Reassessment prior to anesthesia induction/procedure. | | | 3 | | | | | 0 | | | +----+---+ + + | | 1 | an justin now | | | | 1 | | | | | 3 | | | | | 2 | | | +----+---+ + + | | 1 | Preoxygenat | | | | 1 | ed | | | | 3 | | | | | 8 | | | +----+---+ + + | | 1 | An | | | | 1 | Induction | | | | 3 | | | | | 9 | | | +----+---+ + + | | 1 | An | | | | 1 | Intubation | | | | 4 | | | | | 0 | | | +----+---+ + + | | 1 | AN Bite | | | | 1 | Block | | | | 4 | | | | | 8 | | | +----+---+ + + | | 1 | [place] | | | | 2 | 43-degrees | | | | 0 | | | | | 0 | | | +----+---+ + + | | 1 | First | | | | 2 | Inc/Proc St | | | | 0 | | | | | 1 | | | +----+---+ + + | | 1 | Quick Note | Discussed dosing the cefazolin again at 4 hours. Surgeon | | | 5 | | declined because we also gave vancomycin near the start of the | | | 1 | | case. | | | 5 | | | +----+---+ + + | | 1 | An Patient | | | | 5 | Move | | | | 3 | | | | | 3 | | | +----+---+ + + | | 1 | An Stop | Patient handed off to recovery nurse. | | | 4 | | | | | 1 | | | +----+---+ + + +------+ | Meds | +------+ + + + | Name | Total | + + + | midazolam | 2 mg | + + + | lidocaine 2% (PF) | 60 mg | + + + | vecuronium | 2 mg | + + + | dexamethasone | 10 mg | + + + | ondansetron | 4 mg | + + + | HYDROmorphone | 4 mg | + + + | dexmedetomidine (PRECEDEX) 4 | 100 mcg | | mcg/mL in sodium chloride 0.9% | | | 100 mL infusion | | + + + | magnesium sulfate | 2 g | + + + | propofol | 200 mg | + + + | propofol | 349.13 mg | + + + | vancomycin | 1 g | + + + | Phenylephrine 100mcg/mL SYRINGE | 2,300 mcg | + + + | ePHEDrine | 50 mg | + + + | ketamine | 100 mg | + + + | ceFAZolin in saline (ANCEF) IVPB | 2 g | | 2 g | | + + + | vasopressin | 2 Units | + + + | EPINEPHrine | 20 mcg | + + + | lactated ringers (LR) infusion | 4,800 mL | + + + + + | Name | + + | N2O Flow Rate (L/Min) | + + | O2 Flow Rate (L/Min) | + + | Insp O2 | + + | Exp SEV | + + | Exp LOUISE | + + | Air Flow Rate (L/Min) | + + + + | No blood administrations on file. | + + +--------+ + + + | Type | Details | Placement | Removal | +--------+ + + + | Read | 11/11/16; (in OR); back; healed; | 11/11/16 0000 by | 01/01/18 0407 by | | only - | 01/01/18; 0407 | Kemi Romero RN | Makeda Jones RN | | | | | | | Incisi | | | | | on | | | | +--------+ + + + | Periph | 11/11/16; 0938; Right; Forearm; | 11/11/16 0938 by | 11/15/16 1215 by | | eral | [id number] catheter system; | Marla Dinero RN | Sonia Velasco RN | | IV | 20 gauge; 1; RFA; distraction, | | | | | intradermal injection; no longer | | | | | indicated, catheter/device | | | | | intact, removed per | | | | | policy/procedure; short term use; | | | | | 11/15/16; 1215 | | | +--------+ + + + | Airway | Placement Date: 11/11/16; | 11/11/16 1152 by | 11/11/16 1700 by | | | Placement Time: 1152; Mask | Abdiel Evans, | Virgen Bravo RN | | | Ventilation: EZ; Airway Grade: | MD | | | | 2a; External Maneuvers: CP; | | | | | Successful Technique: Mac; | | | | | Laryngoscope Blade Size: 3; | | | | | Airway Type: endotracheal, oral, | | | | | cuffed, fenestrated, disposable; | | | | | Size: 7; Position: Right; Airway | | | | | Tube Secured At: 23; Tube | | | | | Reference Point: secure and | | | | | patent, teeth; Trauma: none; | | | | | Other Equipment: tooth guard; | | | | | Placement Check: bilateral chest | | | | | rise, breath sounds equal | | | | | bilaterally, exhaled CO2 | | | | | detection device; Removal: other | | | | | (see comment) (Removed prior to | | | | | surgical floor admit); Removal | | | | | Date: 11/11/16; Removal Time: | | | | | 1700 (Time unknown. Removed by | | | | | other) | | | +--------+ + + + | Read | 11/11/16; 1207; Left; flank; | 11/11/16 1207 by | 01/01/18 0407 by | | only - | healed; 01/01/18; 0407 | Julissa Hanks RN | Makeda Jones RN | | | | | | | Incisi | | | | | on | | | | +--------+ + + + | Urethr | 11/11/16; 1300; indicated due to | 11/11/16 1300 by | 11/11/16 161 by | | al | specific surgical procedure; All | Julissa Hanks RN | Kati Bravo RN | | Cathet | elements; All elements; All | | | | er | elements; indwelling single lumen | | | | | catheter; 100% silicone; 14; 1; | | | | | 10; 10; 11/11/16; 1616 | | | +--------+ + + + | Drain/ | 11/11/16; 1615; lumbar spine; | 11/11/161615 by | 11/13/162126 by | | Device | 10f; 11/13/16; 2126 | Kati Bravo RN | Yolanda Ventura RN | | Site | | | | +--------+ + + + documented in [...] OR Notes Anesthesia Postprocedure Evaluation - Vasiliy Romero II, MD - 11/11/2016 5:14 PM PDTF ormatting of this note might be different from the original. ANESTHESIA POSTANESTHESIA EVALUATION Lele Mustafa 56 y.o. male 1960 [id number] Procedure(s) L3-4 Lateral Anterior Interbody Fusion, L3-4 Lumbar Decompression & Fusion, L 5-S1 Transforaminal Lumbar Interbody Fusion (Left Spine Lumbar) Cooperates? Yes Mental Status Performs simple tasks. Respiratory Satisfactory - Airway patent (self maintained). Cardiovascular Satisfactory - Blood pressure and heart rate acceptable Temperature Satisfactory Pain Satisfactory N/V Control Satisfactory Hydration Satisfactory - No signs of dehydration Complications None apparent Vitals: 11/11/16 1700 11/11/16 1705 11/11/16 1710 BP: 142/90 (!) 132/99 (!) 116/94 Pulse: 108 107 108 Temp: Resp: 15 16 12 SpO2: 98% 98% 100% Electronically signed by Vasiliy Romero II, MD 11/11/2016 17:[address] [facility] nesthesia Preprocedure Evaluation - Abdiel Evans MD - 10/24 9:57 AM PDT ANESTHESIA PREANESTHESIA EVALUATION Lele Mustafa 56 y.o. male 1960 [id number] Procedure(s): L3-4 Lateral Anterior Interbody Fusion, L3-4 Lumbar Decompression & Fusion, L 5-S1 Transforaminal Lumbar Interbody Fusion (Left ) Medical history, anesthesia, medications, allergy, NPO status verified histories reviewed. Review of Systems / Med History Anesthesia History No anesthesia complications. (-) PONV, malignant hyperthermia Cardiovascular (+) hypertension, CAD(-) congenital heart disease, pulmonary hypertension, pacemaker (-) va lvular disease , Exercise tolerance >4 METS Pulmonary (+) smoking history(+) sleep apnea: known Neurology (+) back pain Psychology (+) anxiety, depression Renal Negative except where noted below. Endocrine (+) goiter (+) Diabetes: type 2, NIDDM (+) obesity: BMI (30-39) Other Lab Results Component Value Date WBC 6.4 10/20/2016 HGB 17.0 10/20/2016 HCT 49.6 10/20/2016 MCV 90.0 10/20/2016 PLT 117 (L) 10/20/2016 Lab Results Component Value Date CREA 0.66 10/20/2016 BUN 15 10/20/2016 NA 133 (L) 10/20/2016 K 4.0 10/20/2016 CL 98 10/20/2016 CO2 28 10/20/2016 . Cancer Negative except where noted below. Physical Exam Airway MP II, TM >3 FB, Mouth opening >2 FB. Neck: full ROM, extends >30 degrees. Jaw protrus ion normal. Dental Grossly normal except where noted below.; (+) dentures-upper and Age appropriate dentition. CV Rhythm regular. Rate Normal. (-) murmur, carotid bruit, peripheral edema, JVD and weak pulses. Pulm Clear to auscultation bilaterally. (-) wheezing, rhonchi, decreased breath sounds, rales and stridor. Neuro Grossly normal. Anesthesia Plan ASA 3 Type: General. Induction: Intravenous. Potential problems: None anticipated. Monitors: Standard ASA monitors. Consent statement:Anesthetic plan, alternatives, risks and benefits discussed with patient and family. Risks discussed included (but were not limited to): dental injury, pain, sore throat, infec tion, voice injury, muscle aches, nausea, respiratory events, . Risks and benefits of general anesthetic discussed with patient and available family member s. They agree to proceed, answered all questions.. documented in this encounter Miscellaneous Notes Addendum Note - Vasiliy Romero II, MD - 11/11/2016 5:14 PM PDT Addendum created 11/11/16 5648 by Vasiliy Romero II, MD Sign clinical note documented in this encounter Plan of Treatment Not on filedocumented as of this encounter Visit Diagnoses Not on filedocumented in this encounter Administered Medications + +--------+ +------+------+------+ | Medication Order | MAR | Action | Dose | Rate | Site | | | Action | Date | | | | + +--------+ +------+------+------+ | ceFAZolin in saline (ANCEF) | Given | 11/12/19 | 2 g | | | | IVPB 2 g 2 g, Intravenous, | | 17 11:27 | | | | | Administer over 30 Minutes, Prior | | AM PDT | | | | | to Incision, Starting Phyllis | | | | | | | 11/11/16 at 0850, For 1 dose, | | | | | | | Administer within 1 hour of | | | | | | | surgical incision. Keep in | | | | | | | refrigerator., Pre-op, | | | | | | | Indications: Surgical Prophylaxis | | | | | | + +--------+ +------+------+------+ +---+---+ | | | +---+---+ + +-------+ +-------+---+---+ | dexamethasone (DECADRON) 10 | Given | 11/12/19 | 10 mg | | | | mg/mL injection Intravenous, | | 17 11:39 | | | | | PRN, Starting [facility] 11/11/16 at | | AM PDT | | | | | 1139, Anesthesia Intra-op | | | | | | + +-------+ +-------+---+---+ +---+---+ | | | +---+---+ + +---------+ +--------+ +---+ | dexmedetomidine (PRECEDEX) 4 | New Bag | 11/12/19 | 100 | 25 mL/hr | | | mcg/mL in sodium chloride 0.9% | | 17 12:10 | mcg/hr | | | | 100 mL infusion CONTINUOUS PRN, | | PM PDT | | | | | Starting [facility] 11/11/16 at 1210, | | | | | | | Anesthesia Intra-op | | | | | | + +---------+ +--------+ +---+ +---+---+ | | | +---+---+ + +-------+ +-------+---+---+ | ePHEDrine 50 mg/mL injection | Given | 11/12/19 | 25 mg | | | | PRN, Starting Phyllis 11/11/16 at | | 17 12:03 | | | | | 1159, Anesthesia Intra-op | | PM PDT | | | | + +-------+ +-------+---+---+ +-------+ +-------+---+---+ | Given | 11/12/19 | 25 mg | | | | | 17 11:59 | | | | | | AM PDT | | | | +-------+ +-------+---+---+ +---+---+ | | | +---+---+ + +-------+ +--------+---+---+ | EPINEPHrine 1 mg/mL injection | Given | 11/12/19 | 10 mcg | | | | Intravenous, PRN, Anaphylaxis, | | 17 1:35 | | | | | Starting Phyllis 11/11/16 at 1249, | | PM PDT | | | | | Anesthesia Intra-op | | | | | | + +-------+ +--------+---+---+ +-------+ +--------+---+---+ | Given | 11/12/19 | 10 mcg | | | | | 17 12:49 | | | | | | PM PDT | | | | +-------+ +--------+---+---+ +---+---+ | | | +---+---+ + +-------+ +------+---+---+ | HYDROmorphone (DILAUDID) 2 | Given | 11/12/19 | 1 mg | | | | mg/mL injection PRN, Pain, | | 17 4:12 | | | | | Starting [facility] 11/11/16 at 1138, | | PM PDT | | | | | Anesthesia Intra-op | | | | | | + +-------+ +------+---+---+ +-------+ +------+---+---+ | Given | 11/12/19 | 1 mg | | | | | 17 2:56 | | | | | | PM PDT | | | | +-------+ +------+---+---+ | Given | 11/12/19 | 1 mg | | | | | 17 12:04 | | | | | | PM PDT | | | | +-------+ +------+---+---+ +---+---+ | | | +---+---+ + +-------+ +-------+---+---+ | ketamine 50 mg/mL injection | Given | 11/12/19 | 50 mg | | | | PRN, Starting [facility] 11/11/16 at | | 17 12:28 | | | | | 1213, Anesthesia Intra-op | | PM PDT | | | | + +-------+ +-------+---+---+ +-------+ +-------+---+---+ | Given | 11/12/19 | 50 mg | | | | | 17 12:13 | | | | | | PM PDT | | | | +-------+ +-------+---+---+ +---+---+ | | | +---+---+ + + [...] | +---+---+ + +-------+ +-------+---+---+ | lidocaine (PF) 2% injection | Given | 11/12/19 | 60 mg | | | | PRN, Starting Phyllis 11/11/16 at | | 17 11:39 | | | | | 1139, Anesthesia Intra-op | | AM PDT | | | | + +-------+ +-------+---+---+ +---+---+ | | | +---+---+ + +---------+ +--------+---------+---+ | magnesium sulfate 500 mg/mL | New Bag | 11/12/19 | 2 g/hr | 4 mL/hr | | | injection CONTINUOUS PRN, | | 17 12:10 | | | | | Starting [facility] 11/11/16 at 1210, | | PM PDT | | | | | Anesthesia Intra-op | | | | | | + +---------+ +--------+---------+---+ +---+---+ | | | +---+---+ + +-------+ +------+---+---+ | midazolam (VERSED) 1 mg/mL | Given | 11/12/19 | 2 mg | | | | injection Intravenous, PRN, | | 17 11:30 | | | | | Anxiety, Starting Phyllis 11/11/16 at | | AM PDT | | | | | 1130, Anesthesia Intra-op | | | | | | + +-------+ +------+---+---+ +---+---+ | | | +---+---+ + +-------+ +------+---+---+ | ondansetron (ZOFRAN) injection | Given | 11/12/19 | 4 mg | | | | PRN, Nausea, Vomiting, Starting | | 17 11:39 | | | | | Phyllis 11/11/16 at 1139, Anesthesia | | AM PDT | | | | | Intra-op | | | | | | + +-------+ +------+---+---+ +---+---+ | | | +---+---+ + +-------+ +---------+---+---+ | phenylephrine (KAREN-SYNEPHRINE) | Given | 11/12/19 | 100 mcg | | | | 100 mcg/mL injection | | 17 3:01 | | | | | Intravenous, PRN, Starting Phyllis | | PM PDT | | | | | 11/11/16 at 1204, Anesthesia | | | | | | | Intra-op | | | | | | + +-------+ +---------+---+---+ +-------+ +---------+---+---+ | Given | 11/12/19 | 100 mcg | | | | | 17 2:35 | | | | | | PM PDT | | | | +-------+ +---------+---+---+ | Given | 11/12/19 | 100 mcg | | | | | 17 2:22 | | | | | | PM PDT | | | | +-------+ +---------+---+---+ +---+---+ | | | +---+---+ + +-------+ +-------+---+---+ | propofol (DIPRIVAN) injection | Given | 11/12/19 | 50 mg | | | | Intravenous, PRN, Starting Phyllis | | 17 3:37 | | | | | 11/11/16 at 1139, Anesthesia | | PM PDT | | | | | Intra-op | | | | | | + +-------+ +-------+---+---+ +-------+ +--------+---+---+ | Given | 11/12/19 | 150 mg | | | | | 17 11:39 | | | | | | AM PDT | | | | +-------+ +--------+---+---+ +---+---+ | | | +---+---+ + +---------+ + +-------+---+ | propofol (DIPRIVAN) injection | New Bag | 11/12/19 | 25 | 18.4 | | | Intravenous, CONTINUOUS PRN, | | 17 12:11 | mcg/kg/m | mL/hr | | | Starting Phyllis 11/11/16 at 1211, | | PM PDT | in | | | | Anesthesia Intra-op | | | | | | + +---------+ + +-------+---+ +---+---+ | | | +---+---+ + +-------+ +-----+---+---+ | vancomycin injection | Given | 11/12/19 | 1 g | | | | Intravenous, PRN, Starting Phyllis | | 17 11:37 | | | | | 11/11/16 at 1137, Anesthesia | | AM PDT | | | | | Intra-op | | | | | | + +-------+ +-----+---+---+ +---+---+ | | | +---+---+ + +-------+ +---------+---+---+ | vasopressin (PITRESSIN) | Given | 11/12/19 | 1 Units | | | | injection Intravenous, PRN, | | 17 12:29 | | | | | Starting Phyllis 11/11/16 at 1212, | | PM PDT | | | | | Anesthesia Intra-op | | | | | | + +-------+ +---------+---+---+ +-------+ +---------+---+---+ | Given | 11/12/19 | 1 Units | | | | | 17 12:12 | | | | | | PM PDT | | | | +-------+ +---------+---+---+ +---+---+ | | | +---+---+ + +-------+ +------+---+---+ | vecuronium (NORCURON) injection | Given | 11/12/19 | 2 mg | | | | Intravenous, PRN, Ventilator | | 17 1:30 | | | | | Dyssynchrony, Starting Phyllis | | PM PDT | | | | | 11/11/16 at 1330, Anesthesia | | | | | | | Intra-op | | | | | | + +-------+ +------+---+---+ +---+---+ | | | +---+---+ documented in this encounter"
--- OUTSIDE RECORDS SUMMARY | ~2020-02-04 | XMS | Encounter Summary ---
Demographics + + + | Address | [address] | | | [place] [address] | + + + | Home Phone | | + + + | Preferred Language | Unknown | + + + | Marital Status | | + + + | Yarsanism Affiliation | CHR | + + + | Race | White | + + + | Ethnic Group | Not or | + + + Author + + + | Author | [facility] | + + + | Organization | [facility] | + + + | Address | Unknown | + + + | Phone | Unavailable | + + + Support + + +---------+ + | Name | Relationship | Address | Phone | + + +---------+ + | Leslie Lentz | ECON | Unknown | | + + +---------+ + Care Team Providers + +------+ + | Care Muck Farmer Name | Role | Phone | + +------+ + | Aggie Dunn SPEECH AND HEARING DIRECTOR | PCP | | + +------+ + [...] Description | +--------+---------+ + + + | 12/06/ | Surgery | [facility] | Tammy Serrano, | 23G VITRECTOMY, ENDO | | 2019 | | [address] | [address] | LASER, SCLERAL | | | | [facility] | Joni Dubon | LUBALE, 20% SF6 GAS | | | | [place] [address] | [place], [place] | LEFT *23G* ([place]) | | | | | [address] | | | | | | [phone] | | | | | | | [...] + + + | Blood Pressure | 121/80 | 12/07/2019 2:14 PM | | | | | PDT | | + + + + + | Pulse | 80 | 12/07/2019 2:14 PM | | | | | PDT | | + + + + + | Temperature | 36.6 C (97.9 F) | 12/07/2019 2:14 PM | | | | | PDT | | + + + + + | Respiratory Rate | 18 | 12/07/2019 2:14 PM | | | | | PDT | | + + + + + | Oxygen Saturation | 96% | 12/07/2019 2:14 PM | | | [...] documented in this encounter Discharge Instructions Instructions Nuria Cueto RN - [facility] Do not drive, drink alcoholic beverages, sign legal documents or make major decisions durin g the next 24 hours. Leave the bandage [...] | | | 16 | | | release(/YESI) | | | | | | + [...] Op Note - Zaria Walker MD - 12/07/2019 6:47 PM PDTProcedure Date: [...] Laser, right eye Surgeon: Tammy Serrano MD Pancake Professional: Zaria Walker MD, PhD Anesthesia: MAC with [...] trocars in the supratemporal and supranasal quadrants. in g light pipe, vitrector, and the Resight viewing [...] [facility] | [address] | [place], [place] | | | [facility] | [address] | [address] | | | TESTS | | | [...] [place] | [address] | [place], [place] | | | [facility] | [address] | [address] | | | TESTS | | | [...] [facility] | [address] | [place], [place] | | | [facility] | [address] | [address] | | | TESTS | | | [...] [place] | [address] | [place], [place] | | | [facility] | [facility] | [address] | | | TESTS | | | [...] KERRI [facility] | [address] | [place], [place] | | | [facility] | [address] | [address] | | | TESTS | | | | + + + + + documented in this encounter Visit Diagnoses Not on filedocumented in this encounter Administered Medications + +--------+ +--------+------+-------+ | Medication Order | MAR | Action | Dose | Rate | Site | | | Action | Date | | | | + +--------+ +--------+------+-------+ | atropine 1 % ophthalmic drops | Given | 12/07/19 | 1 drop | | Both | | INTRAPROCEDURE PRN, Starting Fri | | 20 4:35 | | | Eyes | | 12/07/19 at 1635, Until Fri | | PM PDT | | | | | 12/07/19 at 1816 | | | | | | + +--------+ +--------+------+-------+ +---+---+ | | | +---+---+ + +-------+ +-------+---+-------+ | balanced salt (BSS) ophthalmic | Given | 12/07/19 | 15 mL | | Both | | irrigation INTRAPROCEDURE PRN, | | 20 4:35 | | | Eyes | | Starting 12/07/19 at 1635, | | PM PDT | | | | | Until 12/07/19 at 1816 | | | | | | + +-------+ +-------+---+-------+ +---+---+ | | | +---+---+ + +-------+ +--------+---+ + | cefuroxime (ZINACEF) injection | Given | 12/07/19 | 125 mg | | Left Eye | | INTRAPROCEDURE PRN, Starting Fri | | 20 4:35 | | | | | 12/07/19 at 1635, Until Fri | | PM PDT | | | | | 12/07/19 at 1816 | | | | | | + +-------+ +--------+---+ + +---+---+ | | | +---+---+ + +-------+ +--------+---+---+ | cyclopentolate 1%-PHENYLEPHrine | Given | 12/07/19 [...] + | dexamethasone (DECADRON) | Given | 12/07/19 | 10 mg | | Left Eye | | injection INTRAPROCEDURE PRN, | | 20 4:35 | | | | | Starting Tue12/07/19 at 1635, | | PM PDT | | | | | Until Tue12/07/19 at 1816 | | | | | | + +-------+ +-------+---+ + +---+---+ | | | +---+---+ + +-------+ + +---+ + | Dilating Solution: BSS Plain | Given | 12/07/19 | 1 Bottle | | Left Eye | | 500 mL - 0.5 mL EPINEPHrine | | 20 4:36 | | | | | (1:1,000) INTRAPROCEDURE PRN, | | PM PDT | | | | | Starting Tue12/07/19 at 1636, | | | | | | | Until Tue12/07/19 at 1816 | | | | | | + +-------+ + +---+ + +---+---+ | | | +---+---+ + +-------+ +---------+---+-------+ | erythromycin ophthalmic | Given | 12/07/19 | 1 strip | | Both | | ointment INTRAPROCEDURE PRN, | | 20 4:36 | | | Eyes | | Starting Tue12/07/19 at 1636, | | PM PDT | | | | | Until Tue12/07/19 at 1816 | | | | | | + +-------+ +---------+---+-------+ + +---+ | | | + +---+ [...] | | | NEEDED, 1 dose, Starting Fri | | | 12/07/19 at 1806, Until [...] | | + +---------+ + + +---+ +---+---+ | | | +---+---+ + +-------+ +------+---+ + | Local with hyaluronidase: | Given | 12/07/19 | 5 mL | | Left Eye | | lidocaine 2% - bupivacaine 0.75% | | 20 4:15 | | | | | - hyaluronidase 150 units/mL 1 mL | | PM PDT | | | | | 1:10:10) INTRAPROCEDURE PRN, | | | | | | | Starting 12/07/19 at 1558, | | | | | | | Until 12/07/19 at 1816 | | | | | | + +-------+ +------+---+ + +-------+ +------+---+ + | Given | 12/07/19 | 5 mL | | Left Eye | | | 20 3:58 | | | | | | PM PDT | | | | +-------+ +------+---+ + + +---+ | | | + [...] | | | + +---+ + +-------+ +--------+---+-------+ | proparacaine (OPHTHAINE) 0.5 % | Given | 12/07/19 | 1 drop | | Both | | ophthalmic drops INTRAPROCEDURE | | 20 4:37 | | | Eyes | | PRN, Starting Tue12/07/19 at | | PM PDT | | | | | 1637, Until Tue12/07/19 at 1816 | | | | | | + +-------+ +--------+---+-------+ +---+---+ | | | +---+---+ documented in this encounter
--- OUTSIDE RECORDS SUMMARY | ~2020-02-04 | XMS | Encounter Summary ---
Demographics + + + | Address | [address] | | | [place] [address] | + + + | Home Phone [...] [place] | | | | | [address] | | + + + + + | Leslie Lentz | ECON | Unknown | | + + + + + Care Team Providers + +------+ + | Care Cutting Machine Tender Name | Role | Phone | + +------+ + | Aggie Dunn NP | PCP | | + +------+ + Encounter Details +--------+ + + + + | Date | Type | Department | Care Team | Description | +--------+ + + + + | 02/09/ | Orders Only | [facility] | Conversion | | | 2017 | | INFECTIOUS DISEASE | Transaction, | | | | | [address] [facility] | Provider Unknown | | | | | [place], [place] | [phone] | | | | | [address] | | | | | | [phone] | | | +--------+ + + + [...] + + | EGFR | Routin | 02/09/2018 | | Results for this | | | e | 12:00 AM | | procedure are in the | | | | PDT | | results section. | + +--------+ + + + | BUN | Routin | 02/09/2018 | | Results for this | | | e | 12:00 AM | | procedure are in the | | | | PDT | | results section. | + +--------+ + + + | VANCOMYCIN, TROUGH | Routin | 02/09/2018 | | Results for this | | | e | 12:00 AM | | procedure are in the | | | | PDT | | results section. | + +--------+ + + + documented in this encounter Results EGFR (02/09/2018 12:00 AM PDT) + + | Specimen | + + | | + + + + + | Impressions | Performed At | + + + | GFR Estimated Result: >60 ML/min Reference: 60-140 mL/min | EXTERNAL LAB | + + + + +---------+ + + | Performing | Address | City/State/Zipcode | Phone Number | | Organization | | | | + +---------+ + + | EXTERNAL LAB | | | | + +---------+ + + BUN (02/09/2018 12:00 AM PDT) + +--------+ + + + | Component | Value | Ref Range | Performed | Pathologist | | | | | At | Signature | + +--------+ + + + | BUN | 24 (A) | 8.4 - 21 mg/dL | [...] | + +---------+ + + Vancomycin, Trough (02/09/2018 12:00 AM PDT) + +-------+ + + + | Component | Value | Ref Range | Performed | Pathologist | | | | | At | Signature | + +-------+ + + + | Vancomycin | 16.9 | 10 - 20 | EXTERNAL | [...]
--- OUTSIDE RECORDS SUMMARY | ~2020-02-04 | XMS | Encounter Summary ---
Demographics + + + | Address | [address] | | | [place] [address] | + + + | Home Phone | | + + + | Preferred Language | Unknown | + + + | Marital Status | | + + + | Restorationist Affiliation | 1013 | + + + | Race | White | + + + | Ethnic Group | Not or | + + + Author + + + | Author | [facility] | | | and [place] | + + + | Organization | [facility] | | | [...] [place] | | | | | [address] | | + + + + + | Leslie Lentz | ECON | Unknown | | + + + + + Care Team Providers + +------+ + | Care Anesthesiologist Assistant Certified Name | Role | Phone | + +------+ + PCP | Unavailable | + +------+ + Encounter Details +--------+ + + + + | Date | Type | Department | Care Team | Description | +--------+ + + + + | 09/14/ | Episode | [facility] | Breanne Kamara, | | | 2017 | Changes | NEUROSURGERY [address] | [employer] | | | | | [address] | | | | | | [place] | | | | | | [address] | | | | | | [phone] | | | +--------+ + + + [...]
--- OUTSIDE RECORDS SUMMARY | ~2020-02-04 | XMS | Encounter Summary ---
Demographics + + + | Address | [address] | | | [place] [address] | + + + | Home Phone | | + + + | Preferred Language | Unknown | + + + | Marital Status | | + + + | Orthodox Affiliation | 1013 | + + + | Race | White | + + + | Ethnic Group | Not or | + + + Author + + + | Author | [facility] | | | and [place] | + + + | Organization | [facility] | | | [...] [place] | | | | | [address] | | + + + + + | Leslie Lentz | ECON | Unknown | | + + + + + Care Team Providers + +------+ + | Care Mechanical Product Design Engineer Name | Role | Phone | + +------+ + | Paulo Rothman MD | PCP | | + +------+ + Encounter Details +--------+ + + + + | Date | Type | Department | Care Team | Description | +--------+ + + + + | 12/15/ | Orders Only | [facility] [place] | Kai Gillespie MD | Status post lumbar | | 2018 | | NEUROSUR[address]ERY [address] | [address] | spinal fusion | | | | [address] | [place] [address] | (Primary Dx) | | | | [place] | [phone] | | | | | [address] | | | | | | [phone] | | | +--------+ + + + [...] of this encounter Plan of Treatment + +---------+--------+ + + | Name | Type | Priori | Associated Diagnoses | Order Schedule | | | | ty | | | + +---------+--------+ + + | XR Lumbar Spine 2 or | Imaging | Routin | Status post lumbar | Expected: 01/15/2018 | | 3 Vw | | e | spinal fusion | (Approximate), | | | | | | Expires: 12/16/2018 | + +---------+--------+ + + documented as of this encounter Visit Diagnoses + + | Diagnosis | + + | Status post lumbar spinal fusion - Primary Arthrodesis status | + + documented in this encounter"
--- OUTSIDE RECORDS SUMMARY | ~2020-02-04 | XMS | Encounter Summary ---
Demographics + + + | Address | [address] | | | [place] [address] | + + + | Home Phone | | + + + | Preferred Language | Unknown | + + + | Marital Status | | + + + | Anabaptist Affiliation | [id number] | + + + | Race | White | + + + | Ethnic Group | Not or | + + + Author + + + | Author | [facility] | | | and [place] | + + + | Organization | [facility] | | | [...] [address] [place] | | | | | [address] | | + + + + + | Leslie Lentz | ECON | Unknown | | + + + + + Care Team Providers + +------+ + | Care Marker Delivery Name | Role | Phone | + +------+ + PCP | Unavailable | + +------+ + Encounter Details +--------+ + + + + | Date | Type | Department | Care Team | Description | +--------+ + + + + | 12/21/ | Emergency | [facility] | Jesus Gill, | Chronic bilateral | | 2016 | | [facility]ICAL [facility]ENTER | MD [address] | low back pain with | | | | EMERGENCY CENTER | [place] [address] | bilateral sciatica | | | | [address] | [phone] | | | | | [place], [place] | | | | | | [address] | | | | | | [phone] | | | +--------+ + + + [...] + + + | Blood Pressure | 158/93 | 12/22/2015 4:59 PM | | | | | PDT | | + + + + + | Pulse | 85 | 12/22/2015 4:59 PM | | | | | PDT | | + + + + + | Temperature | 35.8 C (96.5 F) | 12/22/2015 4:59 PM | | | | | PDT | | + + + + + | Respiratory Rate | 16 | 12/22/2015 4:59 PM | | | | | PDT | | + + + + + | Oxygen Saturation | - | - | | + + + + + | Inhaled Oxygen | - | - | | | Concentration | | | | + + + + + | Weight | 122.2 kg (269 lb 6.4 | 12/22/2015 4:59 PM | | | | oz) | PDT | | + + + + + | Height | - | - | | + + + + + | Body Mass Index | - | - | | + + + + + documented in this encounter ED Notes Conversion Transaction, Provider Unknown - 12/22/2015 4:10 PM PDTFormatting of this note m ight be different from the original. ED Notes by Kofi Reyna RN at 12/22/15 161 Author: Kofi Reyna RN Service: (none) Author Type: Registered Nurse Filed: 12/22/151610 Date of Service: 12/22/151609 Status: Addendum Mold Dresser: Kofi Reyna RN (Registered Nurse) Related Notes: Original Note by Kofi Reyna RN (Registered Nurse) filed at 12/22/15 161 Kofi Reyna RN 12/22/151610 tHiram platt PA-C - 12/22/2015 3:48 PM PDTFormatting of this note might be different from th e original. ED Provider Notes by Hiram King PA-C at 12/22/15 1548 Author: Hiram King PA-C Service: Emergency Department Author Type: Physician Kim marc - Certified Filed: 12/23/15 0033 Date of Service: 12/22/15 154 Status: Attested Mold Dresser: Hiram King PA-C (Physician Development Coordinator - Certified) Cosigner: Jesus miguel MD at 12/23/15828 Attestation signed by Jesus Gill MD at 12/23/15828 I have reviewed the note and supervised the mid-level provider. Procedures [facility] EMERGENCY DEPARTMENT History of Present Illness Patient Identification Lele Mustafa is a 55 y.o. male. Patient information was obtained from patient. History/Exam limitations: none. Patient presented to the Emergency Department by: Car Chief Complaint Chief Complaint Patient presents with Back Pain "I have appt in january with the spine institution but I just can't keep going like this, my legs hurt and the left one is " The patient complains of low back pain. This is a chronic condition with recent acute exac erbation. The symptoms are described to be of moderate severity. The patient describes the quality and location of the symptoms as the following: Low back pain with sharp radiating pa in down bilateral legs Care prior to arrival consisted of most recently steroid taper, with some relief. Past Medical History Diagnosis Date Diabetes mellitus, type 2 (HCC) Hypertension Past Surgical History Procedure Laterality Date Hip surgery Spine surgery Prior to Admission medications Medication Sig Start Date End Date Taking? Authorizing Provider methylPREDNISolone 4 MG dose pack Take 6 pills on day one, 5 pills on day two, 4 pills on d ay three, 3 pills on day four, 2 pills on day five, and 1 pill on day six. Total course six days. 12/06/15 Evin Rodriguez MD Allergies Allergen Reactions Codeine Other (See Comments) "makes my skin crawl" History Social History Marital Status: Spouse Name: N/A Number of Children: N/A Years of Education: N/A Occupational History Not on file. Social History Main Topics Smoking status: Never Smoker Smokeless tobacco: Not on file Alcohol Use: No Drug Use: No Sexual Activity: Not on file Other Topics Concern Not on file Social History Narrative No family history on file. ROS Review of Systems Constitutional: Negative for: fever, chills, fatigue, sweats or weight loss Eyes: Negative for: decreased vision or irritated eyes Nose: Negative for: nosebleed Throat: Negative for: mouth sores Cardiovascular/Respiratory: Negative for: chest pain, shortness of breath, cough Gastrointestinal: Negative for: abdominal pain, vomiting, diarrhea, black or bloody stools Genitourinary: Negative for: dysuria, hematuria, urinary problems Musculoskeletal: Negative for: myalgias and arthralgias Positive for: Back pain Skin: Negative for: laceration or lesion Neuro and psych: Negative for: fainting, head injury, seizure, trouble walking Endocrine/Heme/Lymph: Negative for: swollen lymph nodes, easy bruising Physical Exam BP 153/90 mmHg | Pulse 84 | Temp(Src) 96.5 F (35.8 C) (Temporal) | Resp 16 | Wt 122.2 k g (269 lb 6.4 oz) | SpO2 96% Pulse Oximetry interpretation: Normal General: Alert, in no apparent distress Eyes: Normal inspection, pupils equal and round, non-icteric Neck: Normal inspection Supple Cardiovascular: Rate and rhythm normal No murmurs Respiratory: Breath sounds normal bilaterally Abdomen: Soft, non-tender, non-distended No guarding or rebound Genitourinary: Deferred Rectal exam: Deferred Back: Tenderness to palpation on L-spine, Bilateral paraspinal muscles, with radiation valorie aterally Skin: Color normal Warm and dry No rash Neuro: No motor deficit No sensory deficit Normal gait ED Course Medical Decision Making and Emergency Department Course ED Department Course Patient presenting with acute exacerbation of chronic back pain. No evidence for cauda equi na, spinal infection, bony injury, other significant pathology. The patient did not have an y urinary incontinence, bowel incontinence, saddle anesthesia, fever, or weight loss that wo uld warrant imaging. Imaging, however, was ordered on triage, along with labs which showed multiple prior surgeries to L-spine, disc bulging, and spondylitic changes. Labs were othe rwise unremarkable aside from elevated blood sugar due to diabetes type II Patient was provi ded with Toradol, Valium in ED. patient has multiple Emergency Department visits for same complaint. Patient reports has an appointment for spine surgeon on 02/11/16. Provided prescription for pain medication and muscle relaxant. Advised Ibuprofen for pain a nd inflammation. Patient was advised to follow-up with primary physician in 14 days if keo nues to have back pain. Advised to return to ER if signs of cauda equina or spinal infection including loss of bowel or bladder function, peripheral numbness/weakness/tingling, signifi cant fevers, or other concerns. At time of discharge patient able to ambulate and vitals sta ble. Instructed Pt on low back pain ROM exercises. Patient expressed understanding of and a greement with plan and all questions answered.Based on history and examination of this patie nt, in conjunction with their past medical history and current ED evaluation there is no cli nical suspicion for spinal fracture, cord compression syndromes, acute motor neuropathy, alberto lonephritis, meningitis, tumor or other serious and/or life-threatening causes of patient's back pain. Records Reviewed Old medical records. Nursing notes. Labs & Radiology Results Laboratory Evaluation Results Procedure Component Value Ref Range Date/Time Complete Metabolic Panel [[id number]] (Abnormal) Collected: 12/22/151401 Order Status: Completed Specimen Information: Blood Updated: 12/22/151443 SODIUM 137 135 - 145 mmol/L POTASSIUM 4.2 3.5 - 4.9 mmol/L CHLORIDE 103 99 - 109 mmol/L CO2 26 23 - 32 mmol/L ANION GAP AGAP 12 5 - 20 mmol/L GLUCOSE 356 (H) 65 - 99 mg/dL BUN 18 8 - 25 mg/dL CREATININE 0.71 0.70 - 1.30 mg/dL BUN/CREAT 25 CALCIUM 8.5 8.5 - 10.5 mg/dL TOTAL PROTEIN 6.0 (L) 6.3 - 8.2 g/dL Albumin 3.4 (L) 3.6 - 5.0 g/dL GLOBULIN 2.5 1.3 - 4.9 g/dL A/G 1.4 1.0 - 2.4 TBIL 0.6 0.1 - 1.5 mg/dL ALK PHOS 109 35 - 115 U/L AST 11 10 - 45 U/L ALT 94 (H) 10 - 65 U/L EGFR >60 >60 mL/min/1.73m2 C-Reactive Protein [[id number]] Collected: 12/22/151401 Order Status: Completed Specimen Information: Blood Updated: 12/22/151443 CRP <0.3 <0.5 mg/dL Sedimentation Rate (ESR) [[id number]] Collected: 08/29/16 1402 Order Status: Completed Specimen Information: Blood Updated: 12/22/15 1422 ESR 1 0 - 20 mm/Hr CBC w Auto Diff [[id number]] (Abnormal) Collected: 12/22/15 1402 Order Status: Completed Specimen Information: Blood Updated: 12/22/15 1417 WBC 6.88 3.80 - 11.00 K/uL RBC 4.71 4.20 - 5.70 M/uL HGB 14.4 13.2 - 17.0 g/dL HCT 42.8 39.0 - 50.0 % MCV 90.9 80.0 - 100.0 fl MCH 30.6 27.0 - 34.0 pg MCHC 33.6 32.0 - 35.5 g/dL RDW SD 43.8 37 - 53 fl PLT 128 (L) 150 - 400 K/uL MPV 10.8 fl DIFF TYPE AUTOMATED NEUTROPHILS 76.67 % LYMPHOCYTES 16.98 % MONOCYTES 5.10 % EOSINOPHILS 0.88 % BASOPHILS 0.37 % NEUTROPHILS ABS 5.28 1.90 - 7.40 K/uL LYMPHOCYTES ABS 1.17 1.00 - 3.90 K/uL MONOCYTES ABS 0.35 0.00 - 0.80 K/uL EOSINOPHILS ABS 0.06 0.00 - 0.50 K/uL BASOPHILS ABS 0.03 0.00 - 0.10 K/uL Radiology and EKG Evaluation Imaging Results CT L-Spine without contrast (Final result) Result time: 12/22/15 16:26:41 Final result by Rad Results In Arnaldo (12/22/15 16:26:41) Impression: 1. Attempted previous fusion L4-S1 with removal of previous L4, L5, and S1 transpedicular screws, with bony fusion L4-L5 posterior elements, but lack of fusion of persistent bilater al L5 spondylolysis with 7 mm anterolisthesis L5 on S1. 2. Disc bulging and listhesis cause moderate left and mild right L5-S1 neural foraminal st enosis, without central stenosis. 3. Partial bilateral L4 laminectomies. 4. Advanced spondylotic changes throughout most of the lumbar spine, most prominent at T11 -T12, T12-L1, L1-L2, L3-L4, L5-S1. 5. Mild retrolisthesis L1 on L2 of 3 mm. 6. Mild retrolisthesis L3 on L4 of 3 mm. 7. Suspected severe stenosis L3-L4, poorly defined. MRI is recommended with contrast enhan cement. 8. Severe left and moderate right L3-L4 neural foraminal stenosis. Narrative: HISTORY: Back pain. COMPARISON: Lumbar spine films 12/06/15. TECHNIQUE: Axial 1.25-mm noncontrast CT images were acquired using automated exposure control from T11 -12 through the sacrum. Coronal and sagittal reconstructions were performed. FINDINGS: T11-T12: Near-complete loss the disc space with vacuum disc phenomenon, moderate anterior o steophytes. Minimal posterior disc bulging, diffuse impressing on the thecal sac. Slight valorie ateral degenerative facet change. T12-L1: Advanced degenerative disc disease with marked subchondral sclerosis extending into the mid T12 and L1 vertebral bodies. Moderate to prominent anterior and lateral osteophytes . Mild posterior osteophytic ridging impressing on the thecal sac and extending into the chula ral foramina greater on the right causing [id number] right neural foraminal stenosis. No central stenosis. Minimal anterior loss in height of T12 and L1 chronically. L1-L2: Advanced degenerative disc disease with marked subchondral sclerosis asymmetrically greater on the right. Moderate anterior and right lateral vertebral endplate spurs and vacuu m disc phenomenon with loss of the disc space. Retrolisthesis L1 in relation L2 of 3 mm. AP canal diameter 10 mm. Slight bilateral degenerative facet change. Minimal hypertrophy ligame nta flava. L2-L3: Minimal anterior and lateral vertebral endplate spurring. Slight posterior disc bulg ing, minimally impressing on the thecal sac. Mild hypertrophy ligamenta flava. Slight bilate ral degenerative facet change. L3-L4: Advanced degenerative disc disease with vacuum disc phenomenon, moderate disc height loss, subchondral sclerosis asymmetrically greater on the left. Retrolisthesis of L3 in rel ation L4 of 3 to 4 mm. Disc bulging extends into the left neural foramen causing severe left and moderate right neural foraminal stenosis. Diffuse posterior disc bulging, poorly define d on CT. Moderate to prominent hypertrophy ligamenta flava. Suspected severe central stenosi s, poorly defined. Moderate degenerative change of the facet joints bilaterally. L4-L5: Previous L4, L5, S1 bilateral transpedicular screws. Fusion of the posterior element s L4 and L5, with partial bilateral L4 laminectomies. Mild posterior disc bulging and minima l posterior atrophic ridging slightly impressing on the thecal sac. Slight narrowing of the lateral recesses without definite nerve impingement. No central or neural foraminal stenosis . L5-S1: Anterolisthesis L5 on S1 measuring 7 mm. Lack of fusion of the bilateral L5 spondylo lysis. Diffuse posterior disc bulging impressing on the thecal sac slightly asymmetric left paracentral and central region, extending into the left neural foramen causing moderate left and mild right neural foraminal stenosis vacuum disc phenomenon. Moderate disc space narrow ing greater posteriorly. Vacuum facet with hypertrophic change on the left, and fragmentatio n of the left greater than right facet joint inferiorly. Diagnosis & Disposition ED Diagnosis Final diagnosis Chronic bilateral low back pain with bilateral sciatica Disposition: ED Disposition Discharge Condition at discharge: Stable Follow-up Information Follow up With Details Comments Contact [facility] Emergency Department If symptoms worsen [address] [facility] [address] Paulo Rothman MD As needed [address] [place] [id number] Discharge Medications: Discharge Medication List as of 12/22/2015 4:52 PM START taking these medications Details ibuprofen (MOTRIN) 600 MG tablet Take 1 tablet by mouth 4 (four) times daily as needed for Pain or Fever., Starting 12/22/2015, Until Phyllis 01/01/16, Print methocarbamol (ROBAXIN) 500 MG tablet Take 3 tablets by mouth every 6 (six) hours as needed ., Starting 12/22/2015, Until Phyllis 01/01/16, Print Hiram King PA-C 12/23/15 0033 Jesus Gill MD 12/23/15 0829 onversion Transa ction, Provider Unknown - 12/22/2015 3:26 PM PDT ED Notes by Erik Merrill RN at 12/22/15 7714 Author: Erik Merrill RN Service: (none) Author Type: Registered Nurse Filed: 12/22/15 1526 Date of Service: 12/22/15 1526 Status: Signed Mold Dresser: Erik Merrill RN (Registered Nurse) PA at bedside assessing patient. Erik Merrill RN 12/22/15 1526 onver bora Transaction, Provider Unknown - 12/22/2015 1:41 PM PDT ED Notes by Prieto Arroyo RN at 12/22/15 134 Author: Prieto Arroyo RN Service: (none) Author Type: Registered Nurse Filed: 12/22/15 1342 Date of Service: 12/22/15 134 Status: Signed Mold Dresser: Prieto Arroyo RN (Registered Nurse) States he has lower back pain chronic. But woke yesterday with right leg pain and decrease sensation in the right leg. States his sciatic is worsening in the last day Prieto Arroyo RN 12/22/15 134 Owen Novoa PA-C - 12/22/2015 1:39 PM PDTFormatting of this note might be different from the orig inal. ED Provider Notes by Owen Barth PA-C at 12/22/151338 Author: Owen Barth PA-C Service: Emergency Department Author Type: Physician Development Coordinator - Certified Filed: 12/22/152140 Date of Service: 12/22/151338 Status: Attested Mold Dresser: Owen Barth PA-C (Physician Development Coordinator - Certified) Cosigner: Jesus Gill MD at 12/22/152156 Attestation signed by Jesus Gill MD at 12/22/152156 I have reviewed the note and supervised the mid-level provider. Procedures Lele Mustafa presents to the Emergency Department triage with a chief complaint of Magui k Pain . Patient also complains of left leg weakness. Patient denies fever, chills, nausea, diarrh ea. Prior to arrival patient has rested and taking medrol dose pack and muscle relaxer's wit hout relief. On a focused exam patient exhibit s hyperdensity in the lumbar paraspinal mus cles L1-5 with vertebral TTP over L2-5 without chronic tissue tissues, crepitus, step-off. I have discussed an initial plan of CBC, CMP, CRP, ESR, CT imaging. Patient will be transport ed to appropriate department room. Owen Barth PA-C 12/22/152140 Jesus Gill MD 12/22/158 documented in this enco unter Plan of Treatment Not on filedocumented as of this encounter Procedures + +--------+ + + + | Procedure Name | Priori | Date/Time | Associated Diagnosis | Comments | | | ty | | | | + +--------+ + + + | CT LUMBAR SPINE WO | Routin | 12/22/2015 | | Results for this | | CONTRAST | e | 3:20 PM | | procedure are in the | | | | PDT | | results section. | + +--------+ + + + | EXTERNAL LAB: CBC | Routin | 12/22/2015 | | Results for this | | | e | 2:02 PM | | procedure are in the | | | | PDT | | results section. | + +--------+ + + + | SEDIMENTATION RATE, | Routin | 12/22/2015 | | Results for this | | AUTOMATED | e | 2:02 PM | | procedure are in the | | | | PDT | | results section. | + +--------+ + + + | C-REACTIVE PROTEIN | Routin | 12/22/2015 | | Results for this | | | e | 2:02 PM | | procedure are in the | | | | PDT | | results section. | + +--------+ + + + | COMPREHENSIVE | Routin | 12/22/2015 | | Results for this | | METABOLIC PANEL | e | 2:02 PM | | procedure are in the | | | | PDT | | results section. | + +--------+ + + + documented in this encounter Results CT Lumbar Spine wo Contrast (12/22/2015 3:20 PM PDT) + + | Specimen | + + | | + + + + + | Impressions | Performed At | + + + | 1. Attempted previous fusion L4-S1 with removal of previous L4, | | | L5, and S1 transpedicular screws, with bony fusion L4-L5 posterior | | | elements, but lack of fusion of persistent bilateral L5 spondylolysis | | | with 7 mm anterolisthesis L5 on S1. 2. Disc bulging and listhesis | | | cause moderate left and mild right L5-S1 neural foraminal stenosis, | | | without central stenosis. 3. Partial bilateral L4 laminectomies. | | | 4. Advanced spondylotic changes throughout most of the lumbar spine, | | | most prominent at T11-T12, T12-L1, L1-L2, L3-L4, L5-S1. 5. Mild | | | retrolisthesis L1 on L2 of 3 mm. 6. Mild retrolisthesis L3 on L4 of | | | 3 mm. 7. Suspected severe stenosis L3-L4, poorly defined. MRI is | | | recommended with contrast enhancement. 8. Severe left and moderate | | | right L3-L4 neural foraminal stenosis. | | + + + + + + | Narrative | Performed At | + + + | HISTORY: Back pain. COMPARISON: Lumbar spine films 12/06/15. | | | TECHNIQUE: Axial 1.25-mm noncontrast CT images were acquired using | | | automated exposure control from T11-12 through the sacrum. Coronal | | | and sagittal reconstructions were performed. FINDINGS: T11-T12: | | | Near-complete loss the disc space with vacuum disc phenomenon, | | | moderate anterior osteophytes. Minimal posterior disc bulging, diffuse | | | impressing on the thecal sac. Slight bilateral degenerative facet | | | change. T12-L1: Advanced degenerative disc disease with marked | | | subchondral sclerosis extending into the mid T12 and L1 vertebral | | | bodies. Moderate to prominent anterior and lateral osteophytes. Mild | | | posterior osteophytic ridging impressing on the thecal sac and | | | extending into the neural foramina greater on the right causing | | | [id number] right neural foraminal stenosis. No central stenosis. | | | Minimal anterior loss in height of T12 and L1 chronically. L1-L2: | | | Advanced degenerative disc disease with marked subchondral sclerosis | | | asymmetrically greater on the right. Moderate anterior and right | | | lateral vertebral endplate spurs and vacuum disc phenomenon with loss | | | of the disc space. Retrolisthesis L1 in relation L2 of 3 mm. AP | | | canal diameter 10 mm. Slight bilateral degenerative facet change. | | | Minimal hypertrophy ligamenta flava. L2-L3: Minimal anterior and | | | lateral vertebral endplate spurring. Slight posterior disc bulging, | | | minimally impressing on the thecal sac. Mild hypertrophy ligamenta | | | flava. Slight bilateral degenerative facet change. L3-L4: Advanced | | | degenerative disc disease with vacuum disc phenomenon, moderate disc | | | height loss, subchondral sclerosis asymmetrically greater on the left. | | | Retrolisthesis of L3 in relation L4 of 3 to 4 mm. Disc bulging | | | extends into the left neural foramen causing severe left and | | | moderate right neural foraminal stenosis. Diffuse posterior disc | | | bulging, poorly defined on CT. Moderate to prominent hypertrophy | | | ligamenta flava. Suspected severe central stenosis, poorly defined. | | | Moderate degenerative change of the facet joints bilaterally. | | | L4-L5: Previous L4, L5, S1 bilateral transpedicular screws. Fusion of | | | the posterior elements L4 and L5, with partial bilateral L4 | | | laminectomies. Mild posterior disc bulging and minimal posterior | | | atrophic ridging slightly impressing on the thecal sac. Slight | | | narrowing of the lateral recesses without definite nerve impingement. | | | No central or neural foraminal stenosis. L5-S1: Anterolisthesis L5 | | | on S1 measuring 7 mm. Lack of fusion of the bilateral L5 | | | spondylolysis. Diffuse posterior disc bulging impressing on the thecal | | | sac slightly asymmetric left paracentral and central region, | | | extending into the left neural foramen causing moderate left and | | | mild right neural foraminal stenosis vacuum disc phenomenon. Moderate | | | disc space narrowing greater posteriorly. Vacuum facet with | | | hypertrophic change on the left, and fragmentation of the left greater | | | than right facet joint inferiorly. | | + + + + + | Procedure Note | + + | Arnaldo, Rad Conversion - 12/07/2018 1:25 PM PDT HISTORY:Back pain. COMPARISON:Lumbar | | spine films 12/06/15. TECHNIQUE:Axial 1.25-mm noncontrast CT images were acquired using | | automated exposure control from T11-12 through the sacrum. Coronal and sagittal | | reconstructions were performed. FINDINGS:T11-T12: Near-complete loss the disc space with | | vacuum disc phenomenon, moderate anterior osteophytes. Minimal posterior disc bulging, | | diffuse impressing on the thecal sac. Slight bilateral degenerative facet change. | | T12-L1: Advanced degenerative disc disease with marked subchondral sclerosis extending | | into the mid T12 and L1 vertebral bodies. Moderate to prominent anterior and lateral | | osteophytes. Mild posterior osteophytic ridging impressing on the thecal sac and | | extending into the neural foramina greater on the right causing [id number]-[id number] right | | neural foraminal stenosis. No central stenosis. Minimal anterior loss in height of T12 | | and L1 chronically. L1-L2: Advanced degenerative disc disease with marked subchondral | | sclerosis asymmetrically greater on the right. Moderate anterior and right lateral | | vertebral endplate spurs and vacuum disc phenomenon with loss of the disc space. | | Retrolisthesis L1 in relation L2 of 3 mm. AP canal diameter 10 mm. Slight bilateral | | degenerative facet change. Minimal hypertrophy ligamenta flava. L2-L3: Minimal anterior | | and lateral vertebral endplate spurring. Slight posterior disc bulging, minimally | | impressing on the thecal sac. Mild hypertrophy ligamenta flava. Slight bilateral | | degenerative facet change. L3-L4: Advanced degenerative disc disease with vacuum disc | | phenomenon, moderate disc height loss, subchondral sclerosis asymmetrically greater on | | the left. Retrolisthesis of L3 in relation L4 of 3 to 4 mm. Disc bulging extends into | | the left neural foramen causing severe left and moderate right neural foraminal | | stenosis. Diffuse posterior disc bulging, poorly defined on CT. Moderate to prominent | | hypertrophy ligamenta flava. Suspected severe central stenosis, poorly defined. Moderate | | degenerative change of the facet joints bilaterally. L4-L5: Previous L4, L5, S1 | | bilateral transpedicular screws. Fusion of the posterior elements L4 and L5, with | | partial bilateral L4 laminectomies. Mild posterior disc bulging and minimal posterior | | atrophic ridging slightly impressing on the thecal sac. Slight narrowing of the lateral | | recesses without definite nerve impingement. No central or neural foraminal stenosis. | | L5-S1: Anterolisthesis L5 on S1 measuring 7 mm. Lack of fusion of the bilateral L5 | | spondylolysis. Diffuse posterior disc bulging impressing on the thecal sac slightly | | asymmetric left paracentral and central region, extending into the left neural foramen | | causing moderate left and mild right neural foraminal stenosis vacuum disc phenomenon. | | Moderate disc space narrowing greater posteriorly. Vacuum facet with hypertrophic change | | on the left, and fragmentation of the left greater than right facet joint inferiorly. | | IMPRESSION: 1. Attempted previous fusion L4-S1 with removal of previous L4, L5, and S1 | | transpedicular screws, with bony fusion L4-L5 posterior elements, but lack of fusion of | | persistent bilateral L5 spondylolysis with 7 mm anterolisthesis L5 on S1.2. Disc | | bulging and listhesis cause moderate left and mild right L5-S1 neural foraminal | | stenosis, without central stenosis.3. Partial bilateral L4 laminectomies.4. Advanced | | spondylotic changes throughout most of the lumbar spine, most prominent at T11-T12, | | T12-L1, L1-L2, L3-L4, L5-S1.5. Mild retrolisthesis L1 on L2 of 3 mm.6. Mild | | retrolisthesis L3 on L4 of 3 mm.7. Suspected severe stenosis L3-L4, poorly defined. MRI | | is recommended with contrast enhancement.8. Severe left and moderate right L3-L4 | | neural foraminal stenosis. | | PM | + + Sedimentation rate, automated (12/22/2015 2:02 PM PDT) + + + + + + | Component | Value | Ref Range | Performed | Pathologist | | | | | At | Signature | + + + + + + | Sed Rate | 1Comment: Testing | 0 - 20 mm/Hr | EXTERNAL | | | | performed at [facility] | | LAB | | | | [address];[place], [place] | | | | | | [address] | | | | + + + [...] + +---------+ + + External Lab: CBC (12/22/2015 2:02 PM PDT) + + + + + + | Component | Value | Ref Range | Performed | Pathologist | | | | | At | Signature | + + + + + + | WBC | 6.88Comment: Testing | 3.80 - 11.00 | EXTERNAL | | | | performed at [facility] | K/uL | LAB | | | | [address];[place] | | | | | | [address] | | | | + + + + + + | Non- | 4.71Comment: Testing | 4.20 - 5.70 | EXTERNAL | | | Red Blood | performed at [facility] | M/uL | LAB | | | Cells | [address];[place] | | | | | Counted | [id number] | | | | + + + + + + | Hemoglobin | 14.4Comment: Testing | 13.2 - 17.0 | EXTERNAL | | | | performed at [facility] | g/dL | LAB | | | | [address];[place] | | | | | | [address] | | | | + + + + + + | Hematocrit, | 42.8Comment: Testing | 39.0 - 50.0 % | EXTERNAL | | | POC | performed at [facility] | | LAB | | | | [address];[place] | | | | | | [address] | | | | + + + + + + | MCV | 90.9Comment: Testing | 80.0 - 100.0 fl | EXTERNAL | | | | performed at [facility] | | LAB | | | | [address];[place] | | | | | | [address] | | | | + + + + + + | MCH | 30.6Comment: Testing | 27.0 - 34.0 pg | EXTERNAL | | | | performed at [facility] | | LAB | | | | [address];[place] | | | | | | [address] | | | | + + + + + + | MCHC | 33.6Comment: Testing | 32.0 - 35.5 | EXTERNAL | | | | performed at [facility]888 | g/dL | LAB | | | | [address];[place] | | | | | | [address] | | | | + + + + + + | RDW-CV | 43.8Comment: Testing | 37 - 53 fl | EXTERNAL | | | | performed at [facility] | | LAB | | | | [address];[place] | | | | | | [address] | | | | + + + + + + | Platelet | 128 (L)Comment: Testing | 150 - 400 K/uL | EXTERNAL | | | Count | performed at [facility] | | LAB | | | Plasma | [address];[place] | | | | | | [address] | | | | + + + + + + | MPV | 10.8Comment: Testing | fl | EXTERNAL | | | | performed at [facility] | | LAB | | | | [address];[place] | | | | | | [address] | | | | + + + + + + | Differentia | AUTOMATEDComment: | | EXTERNAL | | | l Type | Testing performed at | | LAB | | | | [facility] | | | | | | [address];[place] [address] | | | | + + + + + + | % Segmented | 76.67Comment: Testing | % | EXTERNAL | | | | performed at [facility];[address] | | LAB | | | Neutrophils | [address];[place] | | | | | | [address] | | | | + + + + + + | % | 16.98Comment: Testing | % | EXTERNAL | | | Lymphocytes | performed at [facility];[address] | | LAB | | | | [address];[place] | | | | | | [address] | | | | + + + + + + | % Monocytes | 5.10Comment: Testing | % | EXTERNAL | | | | performed at [facility] | | LAB | | | | [address];[place] | | | | | | [address] | | | | + + + + + + | % | 0.88Comment: Testing | % | EXTERNAL | | | Eosinophils | performed at [facility];[address] | | LAB | | | | [address];[place] | | | | | | [address] | | | | + + + + + + | % Basophils | 0.37Comment: Testing | % | EXTERNAL | | | | performed at [facility] | | LAB | | | | [address];[place] | | | | | | [address] | | | | + + + + + + | Absolute | 5.28Comment: Testing | 1.90 - 7.40 | EXTERNAL | | | Segmented | performed at [facility];[address] | K/uL | LAB | | | Neutrophils | [address];[place] | | | | | | [address] | | | | + + + + + + | Absolute | 1.17Comment: Testing | 1.00 - 3.90 | EXTERNAL | | | Lymphocytes | performed at [facility];[address] | K/uL | LAB | | | | [address];[place] | | | | | | [address] | | | | + + + + + + | Absolute | 0.35Comment: Testing | 0.00 - 0.80 | EXTERNAL | | | Monocytes | performed at [facility];[address] | K/uL | LAB | | | | [address];[place] | | | | | | [address] | | | | + + + + + + | Absolute | 0.06Comment: Testing | 0.00 - 0.50 | EXTERNAL | | | Eosinophils | performed at [facility];[address] | K/uL | LAB | | | | [address];[place] | | | | | | [address] | | | | + + + + + + | Absolute | 0.03Comment: Testing | 0.00 - 0.10 | EXTERNAL | | | Basophils | performed at [facility];[address] | K/uL | LAB | | | | [address];[place], [place] | | | | | | [address] | | | | + + + + + + + + | Specimen | + + | Blood specimen | | (specimen) | + + + +---------+ + + | Performing | Address | City/State/Zipcode | Phone Number | | Organization | | | | + +---------+ + + | EXTERNAL LAB | | | | + +---------+ + + C-Reactive Protein (12/22/2015 2:02 PM PDT) + + + + + + | Component | Value | Ref Range | Performed | Pathologist | | | | | At | Signature | + + + + + + | CRP | <0.3Comment: Testing | mg/dL | EXTERNAL | | | | performed at [facility] | | LAB | | | | [facility], [place] | | | | | | [address] | | | | + + + [...] + +---------+ + + Comprehensive Metabolic Panel (12/22/2015 2:02 PM PDT) + + + + + + | Component | Value | Ref Range | Performed | Pathologist | | | | | At | Signature | + + + + + + | Na | 137Comment: Testing | 135 - 145 | EXTERNAL | | | | performed at [facility] | mmol/L | LAB | | | | [address];[place] | | | | | | [address] | | | | + + + + + + | K | 4.2Comment: Testing | 3.5 - 4.9 | EXTERNAL | | | | performed at [facility];[address] | mmol/L | LAB | | | | [address];[place] | | | | | | [address] | | | | + + + + + + | Cl | 103Comment: Testing | 99 - 109 mmol/L | EXTERNAL | | | | performed at [facility] | | LAB | | | | [address];[place] | | | | | | [address] | | | | + + + + + + | CO2 | 26Comment: Testing | 23 - 32 mmol/L | EXTERNAL | | | | performed at [facility] | | LAB | | | | [address];[place] | | | | | | [address] | | | | + + + + + + | Anion Gap | 12Comment: Testing | 5 - 20 mmol/L | EXTERNAL | | | | performed at [facility] | | LAB | | | | [address];[place] | | | | | | [address] | | | | + + + + + + | Glucose, | 356 (H)Comment: Testing | 65 - 99 mg/dL | EXTERNAL | | | Fasting | performed at [facility] | | LAB | | | | [address];[place] | | | | | | [address] | | | | + + + + + + | BUN | 18Comment: Testing | 8 - 25 mg/dL | EXTERNAL | | | | performed at [facility] | | LAB | | | | [address];[place] | | | | | | [address] | | | | + + + + + + | Creatinine | 0.71Comment: Testing | 0.70 - 1.30 | EXTERNAL | | | | performed at [facility] | mg/dL | LAB | | | | [address];[place] | | | | | | [address] | | | | + + + + + + | BUN/Creatin | 25Comment: Testing | | EXTERNAL | | | ine Ratio | performed at [facility];[address] | | LAB | | | | [address];[place] | | | | | | [address] | | | | + + + + + + | Calcium | 8.5Comment: Testing | 8.5 - 10.5 | EXTERNAL | | | | performed at [facility] | mg/dL | LAB | | | | [address];[place] | | | | | | [address] | | | | + + + + + + | Protein, | 6.0 (L)Comment: Testing | 6.3 - 8.2 g/dL | EXTERNAL | | | Total | performed at [facility] | | LAB | | | | [address];[place] | | | | | | [address] | | | | + + + + + + | Albumin | 3.4 (L)Comment: Testing | 3.6 - 5.0 g/dL | EXTERNAL | | | | performed at [facility];[address] | | LAB | | | | [address];[place] | | | | | | [address] | | | | + + + + + + | Globulin | 2.5Comment: Testing | 1.3 - 4.9 g/dL | EXTERNAL | | | | performed at [facility];[address] | | LAB | | | | [address];[place] | | | | | | [address] | | | | + + + + + + | A/G Ratio | 1.4Comment: Testing | 1.0 - 2.4 | EXTERNAL | | | | performed at [facility];[address] | | LAB | | | | [address];[place] | | | | | | [address] | | | | + + + + + + | Bilirubin | 0.6Comment: Testing | 0.1 - 1.5 mg/dL | EXTERNAL | | | Total | performed at [facility];[address] | | LAB | | | | [address];[place] | | | | | | [address] | | | | + + + + + + | ALP, | 109Comment: Testing | 35 - 115 U/L | EXTERNAL | | | External | performed at [facility];[address] | | LAB | | | | [address];[place] | | | | | | [address] | | | | + + + + + + | AST | 11Comment: Testing | 10 - 45 U/L | EXTERNAL | | | | performed at [facility];[address] | | LAB | | | | [address];[place] | | | | | | [address] | | | | + + + + + + | ALT | 94 (H)Comment: Testing | 10 - 65 U/L | EXTERNAL | | | | performed at [facility];[address] | | LAB | | | | [address];[place] | | | | | | [address] | | | | + + + [...] BY | | | | | | 1.210.Testing performed | | | | | | at [facility];[address] [place] [address] | | | | | | Blvd;[place] [address] | | | | + + + [...] + | Diagnosis | + + | Chronic bilateral low back pain with bilateral sciatica | + + documented in this encounter
--- OUTSIDE RECORDS SUMMARY | ~2020-02-04 | XMS | Encounter Summary ---
Demographics + + + | Address | [address] | | | [place] [address] | + + + | Home Phone | | + + + | Preferred Language | Unknown | + + + | Marital Status | | + + + | Rastafari Affiliation | [id number] | + + + [...] [place] | | | | | [address] | | + + + + + | Leslie Lentz | ECON | Unknown | | + + + + + Care Team Providers + +------+ + | Care Hcc Coders Name | Role | Phone | + [...] | | | | | | | NE ARTHDSIS | | | | | | | POST/POSTERO | | | | | | | LATRL/POSTIN | | | | | | | TERBODY | | | | | | | LUMBAR NE | | | | | | | SPINE | | | | | | | FUSN,POST | | | | | | | TECH,EA | | | | | | | ADDNL SGMT | | | | | | | NE LUMBAR | | | | | | [...] | | | | | | SEG NE | | | | | | | LAMINEC/FACE | | | | | | | TECT/FORAMIN | | | | | | | ,EACH ADDNL | | | | | | | NE INSJ | | | | | | | BIOMCHN DEV | | | | | | | INTERVERTEBR | | | | | | | AL DSC SPC | | | | | | | W/ARTHRD NE | | | | | | | [...] + + + + | 11/11/ | Hospital | [facility] | Kai Gillespie MD | | | 2016 | Encounter | MED CTR XRAY [address] | | | | | [address] | [place] [address] | | | | | [place] [address] | [phone] | | | | | [phone] | | | +--------+ + + + [...] + + documented in this encounter Results [place] C-Jose Ramon Stats No Charge (11/11/2016 4:20 PM PDT) [...]
--- OUTSIDE RECORDS SUMMARY | ~2020-02-04 | XMS | Encounter Summary ---
Demographics + + + | Address | [address] | | | [place] [address] | + + + | Home Phone [...] [place] | | | | | [address] | | + + + + + | Leslie Lentz | ECON | Unknown | | + + + + + Care Team Providers + +------+ + | Care Almond Blancher Hand Name | Role | Phone | [...] | | | | | | | [place] LUMBAR | | | | | | | SPINE | | | | | | | FUSION,ANTER | | | | | | | APPRCH [facility] | | | | | | | [...] | | | | | | [facility] [place] | | | | | | | [...] | | | | | | [facility] | | | | | | | [...] + + + + | 12/15/ | Anesthesia | [facility] | Jostin Romero MD | | | 2018 | Event | [facility] | [address] | | | | | [address] | [place] | | | | | [place] | [id number] | | | | | [address] | | | | | | [phone] | Sammy Friedman | | | | | | MD David [address] | | | | | | [address] [place] | | | | | | [address] | | | | | | [phone] | | | | | | | | +--------+ + + + + Anesthesia Record + + + + + | Procedure Name | Responsible | Anesthesia Start | Anesthesia Stop Time | | | Anesthesiologist | Time | | + + + + + | ALIF ANTERIOR | Jostin Romero MD | 12/15/17 0749 | 12/15/17 1323 | | APPROACH L5-S1 ALIF, | | | | | Posterior Hardware | | | | | Revision with Iliac | | | | | Fixation (N/A Back) | | | | + + + + + +----+---+ + + | Da | T | Event | Comment | | te | i | | | | | m | | | | | e | | | +----+---+ + + | 08 | 0 | | | | /2 | 7 | | | | 3/ | 4 | | | | 20 | 2 | | | | 18 | | | | +----+---+ + + | | 0 | An Checkout | Pre-use anesthesia machine/equipment checkout. | | | 7 | | | | | 4 | | | | | 9 | | | +----+---+ + + | | 0 | An Start | Reassessment prior to anesthesia induction/procedure. | | | 7 | | | | | 4 | | | | | 9 | | | +----+---+ + + | | 0 | Antibiotic | | | | 7 | Given | | | | 4 | | | | | 9 | | | +----+---+ + + | | 0 | Preoxygenat | | | | 7 | ed | | | | 5 | | | | | 1 | | | +----+---+ + + | | 0 | An | | | | 7 | Induction | | | | 5 | | | | | 3 | | | +----+---+ + + | | 0 | An | | | | 7 | Intubation | | | | 5 | | | | | 5 | | | +----+---+ + + | | 0 | Pre-Procedu | | | | 8 | ral Timeout | | | | 0 | Completed | | | | 8 | | | +----+---+ + + | | 0 | First | | | | 8 | Inc/Proc St | | | | 0 | | | | | 9 | | | +----+---+ + + | | 0 | [place] | | | | 8 | 43-degrees | | | | 3 | | | | | 0 | | | +----+---+ + + | | 1 | [place] off | | | | 3 | | | | | 0 | | | | | 1 | | | +----+---+ + + | | 1 | Breathing | | | | 3 | Spontaneous | | | | 0 | ly | | | | 1 | | | +----+---+ + + | | 1 | Block Start | | | | 3 | | | | | 0 | | | | | 8 | | | +----+---+ + + | | 1 | AN Block | | | | 3 | End | | | | 1 | | | | | 3 | | | +----+---+ + + | | 1 | Oropharynx | | | | 3 | Suctioned | | | | 1 | | | | | 3 | | | +----+---+ + + | | 1 | Extubated | | | | 3 | Deep | | | | 1 | | | | | 7 | | | +----+---+ + + | | 1 | an stop | | | | 3 | data | | | | 1 | | | | | 7 | | | +----+---+ + + | | 1 | An Stop | Patient handed off to recovery nurse. | | | 2 | | | | | 3 | | | +----+---+ + + +------+ | Meds | +------+ + + + | Name | Total | + + + | lidocaine 2% | 20 mg | + + + | propofol (DIPRIVAN) injection | 200 mg | | (bolus) (20 mL) | | + + + | ketamine | 50 mg | + + + | dexamethasone | 10 mg | + + + | rocuronium | 70 mg | + + + | phenylephrine (Injection) | 100 mcg | + + + | magnesium sulfate | 3 g | + + + | ceFAZolin (ANCEF, KEFZOL) 100 | 2 g | | mg/mL IV syringe 2 g | | + + + | midazolam | 2 mg | + + + | Phenylephrine 10mg/mL VIAL | 12,968.8 mcg | + + + | methadone injection | 25 mg | + + + | sugammadex (BRIDION) injection (2 | 100 mg | | mL vial) | | + + + | lactated ringers (LR) infusion | 2,400 mL | + + + + + | Name | + + | N2O Flow Rate (L/Min) | + + | O2 Flow Rate (L/Min) | + + | Insp O2 | + + | Exp LOUISE | + + | Air Flow Rate (L/Min) | + + + + | No blood administrations on file. | + + +--------+ + + + | Type | Details | Placement | Removal | +--------+ + + + | Read | 11/11/16; (in OR); back; healed; | 11/11/16 0000 by | 01/01/18406 by | | only - | 01/01/18; 406 | Kemi Romero RN | Makeda Jones RN | | | | | | | Incisi | | | | | on | | | | +--------+ + + + | Read | 11/11/16; 1207; Left; flank; | 11/11/16 1207 by | 01/01/18406 by | | only - | healed; 01/01/18; 406 | Julissa Hanks RN | Makeda Jones RN | | | | | | | Incisi | | | | | on | | | | +--------+ + + + | Brace/ | 11/11/16; 2214; LSO (lumbar | 11/11/162214 by | 12/19/171509 by | | Orthot | sacral orthosis); healing within | Yolanda Ventura RN | Juany Lovell RN | | ic/Ort | expectations; 12/19/17; 151 | | | | hosis | | | | +--------+ + + + | Wound | 11/11/16; 2218; Right; anterior; | 11/11/162218 by | 01/01/18406 by | | | desir; abrasion; 01/01/18; 406 | Yolanda Ventura RN | Makeda Jones RN | +--------+ + + + | Read | 12/15/17; lower; back; vertical; | 12/15/17 0000 by | 12/19/17 1510 by | | only - | healing within expectations; | Nadja Velez RN | Juany Lovell RN | | | 12/19/17; 1510 | | | | Incisi | | | | | on | | | | +--------+ + + + | Periph | 12/15/17; 0641; Right; Forearm; | 12/15/17 0641 by | 12/19/17 1510 by | | eral | [id number] catheter system; | Flaca Gonzalez RN | Juany Lovell RN | | IV | 18 gauge, 1 1/2 in length; | | | | | distraction, intradermal | | | | | injection, tolerated well; no | | | | | longer indicated; expected | | | | | removal post discharge; 12/19/17; | | | | | 1510 | | | +--------+ + + + | Airway | Placement Date: 12/15/17; | 12/15/17 075 by | 12/15/17 1317 by | | | Placement Time: 754; Mask | Jostin Romero MD | Jostin Romero MD | | | Ventilation: EZ; Airway Grade: 1; | | | | | Successful Technique: Mac; | | | | | Laryngoscope Blade Size: 4; | | | | | Airway Type: oral, cuffed, | | | | | disposable; Size: 7; Airway Tube | | | | | Secured At: 23; Tube Reference | | | | | Point: lip; Trauma: none; | | | | | Placement Check: bilateral chest | | | | | rise, exhaled CO2 detection | | | | | device; Removal Date: 12/15/17; | | | | | Removal Time: 1317 | | | +--------+ + + + | Periph | 12/15/17; 0755; Left; Wrist; | 12/15/17 0755 by | 12/19/17 1510 by | | eral | [id number]-snkgum catheter system; | Aggie Klein RN | Juany Lovell RN | | IV | 18 gauge; 12/19/17; 1510 | | | +--------+ + + + | Urethr | 12/15/17; 0755; indicated due to | 12/15/17 0755 by | 12/15/17 1301 by | | al | specific surgical procedure; All | Aggie Klein RN | Aggie Klein RN | | Cathet | elements; All elements; All | | | | er | elements; indwelling double lumen | | | | | catheter; 100% silicone; 16; | | | | | None; 1; 10; 10; drainage bag to | | | | | dependent drainage; urethral | | | | | catheter removed; 12/15/17; 1301 | | | +--------+ + + + | Read | 12/15/17; 0844; abdomen; healing | 12/15/17 0844 by | 12/19/17 1510 by | | only - | within expectations; 12/19/17; | Aggie Klein RN | Juany Lovell RN | | | 1510 | | | | Incisi | | [...] encounter OR Notes Anesthesia Postprocedure Evaluation - Jostin oRmero MD - 12/15/2017 4:00 PM PDT ANESTHESIA POSTANESTHESIA EVALUATION Lele Mustafa 57 y.o. male 1960 [id number] Procedure(s) ALIF ANTERIOR APPROACH L5-S1 ALIF, Posterior Hardware Revision with Iliac Fix ation (N/A Back) Cooperates? Yes Mental Status Performs simple tasks. Respiratory Satisfactory - Airway patent (self maintained). Cardiovascular Satisfactory - Blood pressure and heart rate acceptable Temperature Satisfactory Pain Satisfactory N/V Control Satisfactory Hydration Satisfactory - No signs of dehydration Complications None apparent Vitals: 12/15/17 1410 12/15/17 1415 12/15/17 1500 BP: (!) 141/101 (!) 137/104 122/84 Pulse: 99 101 96 Temp: Resp: 19 14 18 SpO2: 98% 99% 98% Electronically signed by Jostin Romero MD 12/15/2017 16:00 [facility] MD at 2017 4:00 PM PDTAnesthesia Preprocedure Evaluation - Jostin Romero MD - 12/15/2017 7:39 A M PDT ANESTHESIA PREANESTHESIA EVALUATION Lele Mustafa 57 y.o. male 1960 [id number] Procedure(s): ALIF ANTERIOR APPROACH L5-S1 ALIF, Posterior Hardware Revision with Iliac Fix ation (N/A Back) Medical history, anesthesia, medications, allergy, NPO status verified histories reviewed. ECG reviewed. Labs reviewed. Review of Systems / Med History Anesthesia History No anesthesia complications. Cardiovascular (+) hypertension(-) angina Pulmonary (-) smoking history(+) sleep apnea: known Neurology (+) back pain Endocrine (+) Diabetes: type 2 (+) obesity: BMI (30-39) Physical Exam Airway MP I, TM >3 FB, Mouth opening >2 FB. Neck: full ROM, extends >30 degrees. Jaw protrusi on normal. Dental ; (+) dentures-upper. CV Rhythm regular. Rate normal. (-) murmur. Pulm Clear to auscultation bilaterally. Neuro Grossly normal. Anesthesia Plan ASA 2 Type: General. Induction: Intravenous. Potential problems: None anticipated. Monitors: Standard ASA monitors. Consent statement:Anesthetic plan, alternatives, risks and benefits discussed with patient and family. Risks discussed included (but were not limited to): nausea, heart problems, respiratory wisnome nts, pain, . Consenting person understands and agrees to proceed. PARQ. Electronically Signed by: Jostin Romero MD ESig date/time: 12/15/2017 7:39 documented in this enco unter Plan of Treatment Not on filedocumented as of this encounter Visit Diagnoses Not on filedocumented in this encounter Administered Medications + +--------+ +------+------+------+ | Medication Order | MAR | Action | Dose | Rate | Site | | | Action | Date | | | | + +--------+ +------+------+------+ | ceFAZolin (ANCEF, KEFZOL) 100 | Given | 12/16/19 | 2 g | | | | mg/mL IV syringe 2 g 2 g, | | 18 7:49 | | | | | Intravenous, Administer over 30 | | AM PDT | | | | | Minutes, Prior to Incision, | | | | | | | Starting Phyllis 12/15/17 at 0413, For | | | | | | | 1 dose, Administer within 1 hour | | | | | | | of surgical incision., Pre-op, | | | | | | | Indications: Surgical Prophylaxis | | | | | | + +--------+ +------+------+------+ +---+---+ | | | +---+---+ + +-------+ +-------+---+---+ | dexamethasone (PF) 10 mg/mL | Given | 12/16/19 | 10 mg | | | | injection Intravenous, PRN, | | 18 8:13 | | | | | Starting Phyllis 12/15/17 at 0813, | | AM PDT | | | | | Anesthesia Intra-op | | | | | | + +-------+ +-------+---+---+ +---+---+ | | | +---+---+ + +-------+ +-------+---+---+ | ketamine 50 mg/mL injection | Given | 12/16/19 | 50 mg | | | | Intravenous, PRN, Starting Phyllis | | 18 8:14 | | | | | 12/15/17 at 0814, Anesthesia | | AM PDT | | [...] lidocaine (PF) 2% injection | Given | 12/16/19 | 20 mg | | | | Intravenous, PRN, Starting Phyllis | | 18 7:53 | | | | | 12/15/17 at 0753, Anesthesia | | AM PDT | | | | | Intra-op | | | | | | + +-------+ +-------+---+---+ +---+---+ | | | +---+---+ + +-------+ +-----+---+---+ | magnesium sulfate 500 mg/mL | Given | 12/16/19 | 3 g | | | | injection Intravenous, PRN, | | 18 8:12 | | | | | Starting Phyllis 12/15/17 at 0812, | | AM PDT | | | | | Anesthesia Intra-op | | | | | | + +-------+ +-----+---+---+ +---+---+ | | | +---+---+ + +-------+ +------+---+---+ | methadone 10 mg/mL injection | Given | 12/16/19 | 5 mg | | | | Intravenous, PRN, Pain, Starting | | 18 12:52 | | | | | Phyllis 12/15/17 at 0852, Anesthesia | | PM PDT | | | | | Intra-op | | | | | | + +-------+ +------+---+---+ +-------+ +------+---+---+ | Given | 12/16/19 | 5 mg | | | | | 18 12:44 | | | | | | PM PDT | | | | +-------+ +------+---+---+ | Given | 12/16/19 | 5 mg | | | | | 18 11:22 | | | | | | AM PDT | | | | +-------+ +------+---+---+ +---+---+ | | | +---+---+ + +-------+ +------+---+---+ | midazolam (VERSED) 1 mg/mL | Given | 12/16/19 | 2 mg | | | | injection Intravenous, PRN, | | 18 7:48 | | | | | Anxiety, Starting Phyllis 12/15/17 at | | AM PDT | | | | | 0748, Anesthesia Intra-op | | | | | | + +-------+ +------+---+---+ +---+---+ | | | +---+---+ + + + + +-------+---+ | phenylephrine (KAREN-SYNEPHRINE) | Rate/Dos | 12/16/19 | 0.4 | 0.3 | | | 10 mg/mL injection Intravenous, | e Change | 18 8:32 | mcg/kg/m | mL/hr | | | CONTINUOUS PRN, Starting Phyllis | | AM PDT | in | | | | 12/15/17 at 0822, Anesthesia | | | | | | | Intra-op | | | | | | + + + + +-------+---+ +---------+ + +-------+---+ | New Bag | 12/16/19 | 0.2 | 0.1 | | | | 18 8:22 | mcg/kg/m | mL/hr | | | | AM PDT | in | | | +---------+ + +-------+---+ +---+---+ | | | +---+---+ + +-------+ +---------+---+---+ | phenylephrine (KAREN-SYNEPHRINE) | Given | 12/16/19 | 100 mcg | | | | 100 mcg/mL injection | | 18 8:17 | | | | | Intravenous, PRN, Starting Phyllis | | AM PDT | | | | | 12/15/17 at 0817, Anesthesia | | | | | | | Intra-op | | | | | | + +-------+ +---------+---+---+ +---+---+ | | | +---+---+ + +-------+ +--------+---+---+ | propofol (DIPRIVAN) injection | Given | 12/16/19 | 200 mg | | | | Intravenous, PRN, Starting Phyllis | | 18 7:53 | | | | | 12/15/17 at 0753, Anesthesia | | AM PDT | | | | | Intra-op | | | | | | + +-------+ +--------+---+---+ +---+---+ | | | +---+---+ + +-------+ +-------+---+---+ | rocuronium (ZEMURON) injection | Given | 12/16/19 | 20 mg | | | | Intravenous, PRN, Starting Phyllis | | 18 11:03 | | | | | 12/15/17 at 0753, Anesthesia | | AM PDT | | | | | Intra-op | | | | | | + +-------+ +-------+---+---+ +-------+ +-------+---+---+ | Given | 12/16/19 | 50 mg | | | | | 18 7:53 | | | | | | AM PDT | | | | +-------+ +-------+---+---+ +---+---+ | | | +---+---+ + +-------+ +--------+---+---+ | sugammadex (BRIDION) injection | Given | 12/16/19 | 100 mg | | | | PRN, Starting Phyllis 12/15/17 at | | 18 12:55 | | | | | 1255, Anesthesia Intra-op | | PM PDT | | | | + +-------+ +--------+---+---+ +---+---+ | | | +---+---+ documented in this encounter"
--- OUTSIDE RECORDS SUMMARY | ~2020-02-04 | XMS | Encounter Summary ---
Demographics + + + | Address | [address] | | | [place] [address] | + + + | Home Phone | | + + + | Preferred Language | Unknown | + + + | Marital Status | | + + + | Denominational Affiliation | 1013 | + + + | Race | White | + + + | Ethnic Group | Not or | + + + Author + + + | Author | [facility] | | | and [place] | + + + | Organization | [facility] | | [...] [place] | | | | | [address] | | + + + + + | Leslie Lentz | ECON | Unknown | | + + + + + Care Team Providers + +------+ + | Care Hostess Name | Role | Phone | + [...] | | | | | | | [place] LUMBAR | | | | | | | SPINE | | | | | | | FUSION,ANTER | | | | | | | APPRCH [place] | | | | | | | [...] | | | | | | [place] | | | | | | | [...] | | | | | | [place] | | | | | | | [...] Description | +--------+---------+ + + + | 12/15/ | Surgery | [facility] | Kai Gillespie MD | ALIF ANTERIOR | | 2018 | | MED CTR OR INTRA OP | [address] | APPROACH L5-S1 ALIF, | | | | [address] | [place] [address] | Posterior Hardware | | | | [place] | [phone] | Revision with Iliac | | | | [phone] | | Fixation | | | | [phone] | | | +--------+---------+ + + + [...] + + + | Blood Pressure | 128/80 | 12/15/2017 6:55 AM | | | | | PDT | | + + + + + | Pulse | 76 | 12/15/2017 6:55 AM | | | | | PDT | | + + + + + | Temperature | 36.7 C (98.1 F) | 12/15/2017 6:55 AM | | | | | PDT | | + + + + + | Respiratory Rate | 16 | 12/15/2017 6:55 AM | | | [...] signed by: Sonido Palomo, 12/19/2017 7:33 [facility] documented in this encounter Medications at Time [...] 1:40 PM PDTPhone call from nursing at [facility]. Elif boyd had a small abdominal wound [...] 3:18 PM PDTPatient was picked up by [facility] transportation from [facility] 15:10. Dressing change to abdomen prior to discharge. Patient had no questions before disc harge. Was very thankful about all the assistance provided during hospital stay. All wounds were clean, no signs of infection. All belongings, including insulin taken with patient.Elec tronically signed by Juany Lovell RN at 12/19/2017 3:22 PM Norman, Kai Billings MD - 2017 9:19 AM PDT [facility] NEUROSURGERY PROGRESS NOTE PATIENT NAME: Lele [...] he lost weight. Plan to go to [facility] on Tuesday when bed available. O: CURRENT [...] has no apparent deficits with short or detention memory. MOTOR EXAM: Motor strength is stable [...] patient has requested a SNF. Bed at [facility] ready on Tuesday ELECTRONICALLY SIGNED BY: Kai Gillespie MD, 12/18/2017 9:19 ButSonia martin PA-C - 12/17/2017 7:35 AM PDTFo rmatting of this note might be different from the original. [facility] NEUROSURGERY PROGRESS NOTE PATIENT NAME: Lele [...] he lost weight. Plan to go to [facility] on Tuesday when bed available. O: CURRENT [...] day Sonido Palomo PA-C 80 Units at 12/16/172 insulin lispro (humaLOG KWIKPEN) 100 units/mL injection [...] 1 lozenge 1 lozenge Buccal Q2H PRN Snoido addison PA-C metoclopramide (REGLAN) 5 mg/mL injection [...] has no apparent deficits with short or detention memory. MOTOR EXAM: Motor strength is stable [...] patient has requested a SNF. Bed at [facility] on Tuesday ELECTRONICALLY SIGNED BY: Benton Garza PA-C, 12/17/2017 7:35 est, Sonido Manley PA-C - 12/17/19 7:42 AM PDT [facility] NEUROSURGERY PROGRESS NOTE PATIENT NAME: Lele [...] has no apparent deficits with short or supervisor intermediates memory. MOTOR EXAM: Motor strength is stable [...] from t he original. Kai Gillespie MD [address] [facility] [address] [place], [place] [id number] FAX: NEUROSURGERY FOLLOW-UP CHIEF COMPLAINT: Chief Complaint [...] History: Procedure Laterality Date CHOLECYSTECTOMY 1998 [facility] HIP ARTHROPLASTY 2000 Dr. Castañeda HIP ARTHROPLASTY 2003 Dr. Castañeda LUMBAR SPINE SURGERY Left 11/11/2016 Procedure: L3-4 Lateral Anterior Interbody Fusion, L3-4 Lumbar Decompression & Fusion, L5- S1 Transforaminal Lumbar Interbody Fusion; Surgeon: Kai Gillespie MD; Location: [facility] MAIN OR LUMBAR SPINE SURGERY 1999 [facility] LUMBAR SPINE SURGERY 2014 [facility] TOE AMPUTATION Bilateral 2013, 2016 Dr. Elisabeth [...] nter Miscellaneous Notes Plan of Care - PrashantVolodymyr Trina Benton, COOK SUPERVISOR - 12/19/2017 1:57 PM PDTProblem: Patient Care [...] Fredis has been released for discharge to [facility], CPAP and oxygenation goal s have been completed. SpO2 values are 98% on RA. Electronically signed by: Trina Smith, JOSH 12/19/2017 13:57 lan of Scott - Betty Brantley RN - 12/19/2017 11:29 AM PDTDischarge orders received and faxed to [facility] at [facility]. . This CM also called [facility] @ [phone] an dleft a voice message regarding the discharge an d asked that she review the orders and call me with a transportation time. DISPO: Marissa Moser today, 12/19/2017. Electronically signed by: Betty Brantley [...] are: Recommended discharge disposition: inpatient rehabilitation facility, alf faci lity (TBD; inpt rehab vs. SNF) [...] vc for increased knee/hip flx Level of [place]: stand by assist, verbal cues required Assistive Device: 2 wheeled walker (FWW) Distance (feet): 115'x2 Gait Deviations: double stance time increased, limb motion velocity decreased, step length decreased, stride length decreased, wtmfd-jg-mdubop ratio decreased, whd-ws-qpvru clearance decreased, weight-shifting ability decreased Safety Issues: step length decreased, weight-shifting ability decreased Impairments: pain, strength decreased, decreased flexibility, ROM decreased Transfers close Sup with t/f with FWW, d/t R foot drop Sit-Stand, Level of [place]: supervised, verbal cues required (close) Stand-Sit, Level of [place]: supervised, verbal cues required (close) Tux-Tjwrm-Iuv, Assistive Device: 2 wheeled walker (FWW) Toilet, Level of [place]: stand by assist, verbal cues required Toilet, [...] STG Review Date 12/23/17 at 12/16/2017 1100 Jjtclt-Rkz-Rfycdd Goal Most Recent Value STG Status progressing at 12/18/2017 1525 STG [place] Level modified independent at 12/16/2017 1100 STG Assistive Device none at 12/16/2017 1100 Vol-Shorx-Zue Goal Most Recent Value STG Status progressing at 12/19/2017 0942 STG [place] Level modified independent at 12/16/2017 1100 STG Assistive Device 2 wheeled walker (FWW) at 12/16/2017 1100 Gait Goal Most Recent Value STG Status progressing at 12/19/2017 0942 STG [place] Level modified independent at 12/16/2017 1100 STG Assistive Device 2 wheeled walker (FWW) at 12/16/2017 1100 STG Distance (feet) 75 at 12/16/2017 1100 Stair Goal Most Recent Value STG Status new at 12/16/2017 1100 STG [place] Level modified independent at 12/16/2017 1100 STG [...] might be different fro m the original. CUSTODIAL FACILITY TRANSFER ORDERS Patient Name: Lele Mustafa Patient : 1960 Gender: male Date of Admission: 12/15/2017 Date of Discharge: 12/19/2017 Admitting Provider: Kai Gillespie MD Discharging Provider: Sonido Palomo PA-C Consultants: Pt/ot PCP: Paulo Rothman [facility] transferring to: [facility] Provider after transfer: PCP or Provider at facility CODE STATUS: [x] Attempt CPR [] Do not resuscitate If patient is pulseless and not breathing, RN/MAINTENANCE SHOP CLERK may pronounce . Advanced Directives included: [] [...] creased appetite or pain [x] As tolerated HOTEL LOBBY CONCIERGE may upgrade or downgrade diet as condition Indicates. [x] RN may downgrade diet as indicated. Type: [] Continue current diet of: Diet and Supplements Diet Diet consistent carb; Effective Now Number of Occurrences: Until Specified Order Questions: Type Diet consistent carb [] Other: Consistency/Precautions: [] Whole [] Thin Liquids [] Cut-up [] Entiat Thick [] Advanced Chopped [] Honey Thickened [] Chopped [] Advanced Ground [] 1:1 feedings [] Ground/Pureed [] Other: Tube Feedings: [] PEG [] GT [] JT [] NGT [] Formula type: (Laborer Powerhouse may change/substitute if indicated). [] Continuous Rate: [...] for: Frequent ambulation, ADLs as needed [] HOTEL LOBBY CONCIERGE Evaluation &Management for: [x] Other: Frequent, gentle [...] post op, [facility] and [facility]. Labs/Imaging: [] PT/INR: Frequency: Dx: Goal INR: Duration of therapy: [] Fingerstick glucose checks: Dx: DM [] Other: Test/Study Needed/Frequency Diagnosis/Indication Follow up appointments and consultations: Dr. YAM 4 WEEKS Date/Time: Dr. OF CHOICE [...] Sonido Palomo PA-C, certify that post hospital alf care is medically nece ssary on a [...] to appointment time. Physician's signature: Shirley Palomo [facility] 12/19/2017 7:31 [facility] USE ONLY: [] Admitting orders [...] RLE dorsi weak, plantar strong. M/S 5/5. Attacher strong. Denies N/T. Complains of pain. Oxycodone [...] Patient reports that he is transferring to [facility] tomorrow. Lele will benefit from continued therapeutic intervention to address ongoing impairments and increase safety and independence with activities necessary for safe discharge. Refer be low for specific details regarding functional levels. Physical Therapy Discharge Recommendations are: Recommended discharge disposition: inpatient rehabilitation facility, alf faci lity (TBD; inpt rehab vs. SNF) [...] foot drop from previous surgery Level of [place]kn[place]: stand by assist, verbal cues required Assistive Device: 2 wheeled walker (FWW) Distance (feet): 230' Gait Deviations: double stance time increased, limb motion velocity decreased, step length decreased, stride length decreased, plwjr-xe-uqtbrx ratio decreased, pvm-kl-nuyab clearance decreased, weight-shifting ability decreased Safety Issues: step length decreased, weight-shifting ability decreased Impairments: pain, strength decreased, decreased flexibility, ROM decreased Stairs Number of Stairs: up and down 4 steps Handrail Location: both sides Level of [place]: supervised Technique Used: step to step (ascending), step to step (descending) Transfers demonstrates supervision with transfers, FWW Sit-Stand, Level of [place]: supervised, verbal cues required Stand-Sit, Level of [place]: supervised, verbal cues required Kyq-Izcwg-Bxl, Assistive Device: 2 wheeled walker (FWW) Toilet, Level of [place]: stand by assist, verbal cues required Toilet, [...] STG Review Date 12/23/17 at 12/16/2017 1100 Pfkymw-Yew-Piffyg Goal Most Recent Value STG Status progressing at 12/18/2017 1525 STG [place] Level modified independent at 12/16/2017 1100 STG Assistive Device none at 12/16/2017 1100 Onb-Kxoxb-Fio Goal Most Recent Value STG Status progressing at 12/18/2017 1525 STG [place] Level modified independent at 12/16/2017 1100 STG Assistive Device 2 wheeled walker (FWW) at 12/16/2017 1100 Gait Goal Most Recent Value STG Status progressing at 12/18/2017 1525 STG [place] Level modified independent at 12/16/2017 1100 STG Assistive Device 2 wheeled walker (FWW) at 12/16/2017 1100 STG Distance (feet) 75 at 12/16/2017 1100 Stair Goal Most Recent Value STG Status new at 12/16/2017 1100 STG [place] Level modified independent at 12/16/2017 1100 STG [...] Barragan PTA, 12/18/2017 16:09 lan of Scott - Edward hendrickson, Samanta Boothe RRT - 12/18/2017 5:13 [...] s ee him wear it. lan of Care - Makeda Alvarado RN - 12/18/2017 4:19 AM PDTProblem: Patient [...] Calling appropriately. M/S /. Den ies N/T. Attacher strong. RLE foot drop. Complains of pain. Oxycodone given. Dressing to back r einforced. Dressing to abdomen has dried drainage. CGA, FWW to bathroom. Bowel tones active . Last BM 12/16/17. Voiding without difficulty. C-brace. Appeared to sleep well between care s. lan of Care - Kit Shar mae V, JOSH - 12/17/2017 11:45 PM PDTProblem: [...] and legs MS 5/5, str stephane hand ordnance corps officer, strong left foot flexion. Right plantar flexion strong, right dorsiflexion weak. Bilat legs warm, cap refill < 3 seconds, pedal pulses +2. Krish hose on. Bed alarm in use. GRINDER OPERATOR TOOL assisted pt to shower today. Abdominal dressing [...] to navigate stairs, demonstrating n eed for 24 supervision and not yet able to mobilize at level safe for home discharge. Lele will benefit from continued therapeutic intervention to address ongoing impairments and increase safety and independence with activities necessary for safe discharge. Refer be low for specific details regarding functional levels. Physical Therapy Discharge Recommendations are: Recommended discharge disposition: inpatient rehabilitation facility, alf faci lity (TBD; inpt rehab vs. SNF) [...] hip/knee flx for foot clearance Level of Belkn[place]: contact guard assist, verbal cues required (close) Assistive Device: 2 wheeled walker (FWW) Distance (feet): 65'x2 Gait Deviations: double stance time increased, limb motion velocity decreased, step length decreased, stride length decreased, gugaw-nm-mfmgrh ratio decreased, bcg-dn-xfldt clearance decreased, weight-shifting ability decreased Safety Issues: [...] and pushing from chair Sit-Stand, Level of [place]: verbal cues required, stand by assist Stand-Sit, Level of [place]: stand by assist, verbal cues required Kbm-Xvfzj-Tbe, Assistive Device: 2 wheeled walker (FWW) Safety [...] STG Review Date 12/23/17 at 12/16/2017 1100 Pezpfy-Ecy-Fjppho Goal Most Recent Value STG Status new at 12/16/2017 1100 STG [place] Level modified independent at 12/16/2017 1100 STG Assistive Device none at 12/16/2017 1100 Txm-Vnkvc-Fix Goal Most Recent Value STG Status progressing at 12/17/2017 1342 STG [place] Level modified independent at 12/16/2017 1100 STG Assistive Device 2 wheeled walker (FWW) at 12/16/2017 1100 Gait Goal Most Recent Value STG Status progressing at 12/17/2017 1342 STG [place] Level modified independent at 12/16/2017 1100 STG Assistive Device 2 wheeled walker (FWW) at 12/16/2017 1100 STG Distance (feet) 75 at 12/16/2017 1100 Stair Goal Most Recent Value STG Status new at 12/16/2017 1100 STG [place] Level modified independent at 12/16/2017 1100 STG [...] abdomen has small amount of dried drainage, ordnance corps officer strong, strengths all around 5/5, L dorsi [...] PRN. lan of Care - Kai Vela, COOK SUPERVISOR - 12/16/2017 4:41 PM PDTProblem: Patient Care [...] tingling. Arms and legs MS 5/5, hand ordnance corps officer strong, le ft foot flexion strong, Right dorsiflexion absent, Right plantar flexion strong. Pain manag ed with Tylenol, Oxycodone and flexeril. Pt worked with PT and OT. Family visited, support vonda. lan of Care - Olga gomez, DON Abel - 12/16/2017 2:20 PM PDTProblem: Discharge Planning Goal: Patient will be discharged in a safe manner Outcome: Improving This case management coordinator met with patient regarding discharge plans. Patient states that he lives in [place] with his Bina. He reports that this is his fifth back surgery. He has al l DME at home (FWW,4WW, bathroom DME). He has three steps into his mobile home with hand castillo ls and then lives on a single level. We dicussed his needs at discharge. Patient states that he went to [facility] in [place] aft er his last surgery and would [...] He will need the house doc at [facility] y to follow This CM will f/u with Byron at [facility] to see if they have a bed available. PLAN: To [facility] pending [facility]'s acceptance. Plan B: If [facility] cannot accept, home with [facility] however, he will need to establish with a PCP prior to H H following and this was explained to patient. Electronically signed by: DON Mike 12/16/2017 14:20 Call back from Byron at [facility]. They can accept Fredis to their facility but not unt tuesday. Sticky note left for doc. PLAN: To [facility] Tuesday. lan of Madai Garcia, OT - [...] 4 wheeled walker (4WW), long handled sponge, wellness director (R AFO) Prior Functional Level Comment: Pt [...] of Stairs Within Home: 0 Transportation Available: (taoist people to assist with transportation, hrscni-bc-wtr to a ssist if needed) Living Environment [...] PLOF indicates use of AE such as wellness director and lo ng handled shoe horn. Pt reports that he does not use sock aid at home, although has one. Pt utilized sock aid during tx session due to fatigue and completed LB dressing with Mod I and safely adhered to spinal precautions. LB Dressing, Level of Belknap: modified independent Assistive Device: long-handled shoe horn, wellness director, sock-aid LB Dressing Assess/Train, Position: sitting, standing LB Dressing Assess/Train, Impairments: decreased flexibility, motor control impaired, pain, other (see comments), strength decreased (spinal precautions) Pt completed grooming in standing at sink Mod I with no setup or physical assist Grooming, Level of Belkn[place]: modified independent Grooming Assess/Train, Position: standing Grooming [...] Status new, met at 12/16/2017 1100 STG Bel[place] Level modified independent at 12/16/2017 1100 STG Adaptive Equipment wellness director, shoe horn, long handled, sock-aid at 12/16/2017 [...] 4 wheeled walker (4WW), long handled sponge, wellness director (R AFO) Prior Functional Level Comment: Pt [...] of Stairs Within Home: 0 Transportation Available: (taoist people to assist with transportation, [facility] Living Environment Comment: Pt has [...] Therapy Discharge Recommendations are: Recommended discharge disposition: alf facility vs. inpt rehab Post discharge physical [...] unsteady but no actual LOB. Level of Belknap: contact guard assist Assistive Device: 2 wheeled walker (FWW) Distance (feet): 20 ft x 2 Gait Deviations: double stance time increased, limb motion velocity decreased, step length decreased, stride length decreased, uobtg-al-tywakd ratio decreased, gfk-pa-ldtrg clearance decreased, weight-shifting ability decreased Stairs NT but stair goal set as pt has steps to access his home. Transfers Pt able to stand from raised bed height with CGA and cues for improved hand placement. Sit-Stand, Level of [place]kn[place]: contact guard assist, verbal cues required Stand-Sit, Level of [place]: stand by assist, verbal cues required Rrd-Zwvwi-Ica, Assistive Device: 2 wheeled walker (FWW) Toilet, Level of [place]: stand by assist, verbal cues required Toilet, [...] bed rails Supine to Sit, Level of [place]kn[place]: contact guard assist, verbal cues required Sit to Supine, Level of [place]kn[place]: not tested Safety Issues: decreased use of [...] STG Review Date 12/23/17 at 12/16/2017 1100 Lkxzka-Vep-Wfiltw Goal Most Recent Value STG Status new at 12/16/2017 1100 STG [place] Level modified independent at 12/16/2017 1100 STG Assistive Device none at 12/16/2017 1100 Uia-Zkmyy-Vmf Goal Most Recent Value STG Status new at 12/16/2017 1100 STG [place] Level modified independent at 12/16/2017 1100 STG Assistive Device 2 wheeled walker (FWW) at 12/16/2017 1100 Gait Goal Most Recent Value STG Status new at 12/16/2017 1100 STG [place] Level modified independent at 12/16/2017 1100 STG Assistive Device 2 wheeled walker (FWW) at 12/16/2017 1100 STG Distance (feet) 75 at 12/16/2017 1100 Stair Goal Most Recent Value STG Status new at 12/16/2017 1100 STG [place]kn[place] Level modified independent at 12/16/2017 1100 STG [...] 12/16/2017 17:57 lan of Care - Marisabel on, Edelmira Pierre, Survey Technician - 12/16/2017 10:09 AM PDTProblem: Patient Care [...] right foot [M21.371] Low back pain [M54.5]. Pulp Making Plant Operator visit was part of routine rounding. Spiritual Evaluation: The patient was resting in a bed attended by his . They welcomed spiritual care and in dicated that the timing was right. The patient just completed his 5th back surgery and expr essed hopefulness about it success and a history of going above and beyond expectations to [facility]. The patient and his attend the [employer] [facility] where they are activ e. He attributes his back problems to his work history and lack of rest. Spiritual Interventions: The appraiser art attended, offered care, witnessed patient's story, explored [...] small amount of dried drainage, vitals stable, ordnance corps officer strong, strengths all arou nd 5/5, L [...] Oxycodone q4h. lan of Care - Josi Black RN - 12/15/2017 6:43 PM PDTProblem: Patient [...] abdomen with dried drainage.CMS inta ct. Strong ordnance corps officer to bilateral upper extremities. Strong dorsi/plantar flexion [...] Eval Fri a.m. Electronically signed by: Mini Limno, PT, 12/15/2017 16:15 p Note - Kong Gillespie MD - 12/15/2017 1:45 PM PDTFormatting of this note might be different from the origin al. Operative Note Lele Mustafa 57 y.o. male 1960 [id number] Proc. Date 12/15/2017 Preop Dx Pseudoarthrosis of [...] his co-surgeon for the approach dictated se mayuri. The L5-S1 level was identified. The disc [...] PEEK spacer was prepared filling it with Christie/B MP and then tamping it into the [...] with the timeout. The posterior portion commenced. [place] were removed and then using METRx tubes the hardware from L3-L5 was docked on bilat tessy. The set screws were removed bilaterally. The [...] signed by: Kai Gillespie MD 12/15/2017 13:41 [facility] rief Op Note - Kong Gillespie MD - 12/15/2017 1:41 PM PDTFormatting of this note might be different from the origin al. Brief Operative Note Lele Mustafa 57 y.o. male 1960 [id number] Proc. Date 12/15/2017 Preop Dx Pseudoarthrosis of [...] signed by: Kai Gillespie MD 12/15/2017 13:41 [facility]ron[facility] signed by Kai Gillespie MD at 018 1:45 PM PDTOp Note - Nano Connelly MD - 12/15/2017 1:15 PM PDT [facility] OPERATIVE REPORT PATIENT NAME: Lele [...] signed by: Nano Connelly MD, 01/01/2018 13:15 [facility] nterval H&P Note (unlinked) - Nano Connelly MD - 12/15/2017 7:47 AM PDT [facility] [place] SURGICAL INTERIM HISTORY AND PHYSICAL [...] Electronically signed by: Nano Connelly, 12/15/2017 7:47 [facility] documented in thi s encounter Plan [...] | | Jackso | | | n [place] | | | | | | courier delivery driver | | | ep: | | | [...] | | Jackso | | | n [place] | | | | | | 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 | [address] | [place] | [phone] | | [facility] | | [address] | | | - LABORATORY | | [...] [address] | [place] | [phone] | | [facility] | | [address] | | | - LABORATORY | | [...] [address] | [place] | [phone] | | [facility] | | [address] | | | - LABORATORY | | [...] | + + + + + | [facility] | [address] | [place] | [phone] | | [facility] | | [address] | | | - LABORATORY | | [...] ST. | [address] | [place], [place] | [phone] | | [facility] | | [address] | | | - LABORATORY | | [...] ST. | [address] | [place] | [phone] | | [facility] | | [address] | | | - LABORATORY | | [...] [address] | [place] | [phone] | | [facility] | | [address] | | | - LABORATORY | | | | + + + + + POC Glucose (12/18/2017 1:44 AM PDT) + +-------+ + + + | Component | Value | Ref Range | Performed | Pathologist | | | | | At | Signature | + +-------+ + + + | Glucose, | 70 | 70 - 109 mg/dL | [facility] | | | POC | | | [facility] | | | | | | [...] + | [facility] | [address] | [place] | [phone] | | [facility] | | [address] | | | - LABORATORY | | [...] [address] | [place] | [phone] | | [facility] | | [address] | | | - LABORATORY | | [...] + | [facility] | [address] [address] | [place] | [phone] | | [facility] | | [address] | | | - LABORATORY | | [...] + | [facility] | [address] | [place] | [phone] | | [facility] | | [address] | | | - LABORATORY | | [...] ST. | [address] | [place], [place] | [phone] | | [facility] | | [address] | | | - LABORATORY | | [...] [address] | [place] | [phone] | | [facility] | | [address] | | | - LABORATORY | | [...] [address] | [place] | [phone] | | [facility] | | [address] | | | - LABORATORY | | [...] [address] | [place] | [phone] | | [facility] | | [address] | | | - LABORATORY | | [...] [address] | [place] | [phone] | | [facility] | | [address] | | | - LABORATORY | | [...] + | [facility] | [address] | [place] | [phone] | | [facility] | | [address] | | | - LABORATORY | | [...] | [address] | [address] | [place], [place] | [phone] | | [facility] | | [address] | | | - LABORATORY | | [...] Signed by: Jim Devi | | | Electronically signed: 12/15/2017 4:36 PM | | [...] | [address] | [address] | [place] | [phone] | | [facility] | | [address] | | | - LABORATORY | | [...] + | [address] [facility] | [address] | [place] | [phone] | | [facility] | | [address] | | | - LABORATORY | | [...] +--------+ +--------+------+------+ +-------+ +--------+---+---+ | Given | 12/19/19 | [...] +---+---+ | | | +---+---+ + +-------+ +---+---+ + | bacitracin 50,000 Units in | Given | 12/16/19 | | | Surgical | | sodium chloride for irrigation | | 18 8:20 | | | Site | | 0.9% 1,000 mL OpTesia mixture | | AM PDT | | | | | PRN, Starting Tue12/15/17 at | | | | | | | 0820, Intra-op | | | | | | + +-------+ +---+---+ + +---+---+ | | | +---+---+ + +-------+ +--------+---+ + | bupivacaine (liposomal) | Given | 12/16/19 | 20 mLs | | Surgical | | (EXPAREL) 1.3% injection PRN, | | 18 12:45 | | | Site | | Starting Phyllis 12/15/17 at 0820, | | PM PDT | | | | | Intra-op | | | | | | + +-------+ +--------+---+ + +---+---+ | | | +---+---+ + +-------+ +--------+---+ + | bupivacaine 0.5%-EPINEPHrine | Given | 12/16/19 | 30 mLs | | Surgical | | 1:200,000 injection PRN, | | 18 8:20 | | | Site | | Starting [facility] 12/15/17 at 0820, | | AM PDT | | | [...] PDT | | | | | Starting [facility] 12/15/17 at 1627, Use | | | [...] Low | | | Blood Sugar, Starting [facility] 12/15/17 | | | at 1627, Post-op/Phase II | | + +---+ | | | + +---+ | diphenhydrAMINE (BENADRYL) 12.5 | | | mg/5 mL liquid 25 mg 25 mg, | | | Oral, EVERY 4 HOURS PRN, Itching, | | | Starting Phyllis 12/15/17 at 1627, | | | Oral route is preferred., | | | Post-op/Phase II | | + +---+ | | | + +---+ | diphenhydrAMINE (BENADRYL) | | | injection 12.5 mg 12.5 mg, | | | Intravenous, EVERY 4 HOURS PRN, | | | Itching, Starting Phyllis 12/15/17 at | | | 1627, Oral route is preferred., | | | Post-op/Phase II | | + +---+ | | | + +---+ | diphenhydrAMINE (BENADRYL) | | | tablet 25 mg 25 mg, Oral, EVERY | | | 4 HOURS PRN, Itching, Starting | | | Phyllis 12/15/17 at 1627, Oral route | | [...] | | | DAILY, First dose on Phyllis 12/15/17 | | AM PDT | [...] PDT | | | | | on 12/18/17 at 2100 | | | | | | + +-------+ +-------+---+ + +---+---+ | | | +---+---+ + +-------+ +--------+---+---+ | gabapentin (NEURONTIN) capsule | Given | 12/20/19 | 300 mg | | | | 600 mg 600 mg, Oral, 3 TIMES | | 18 2:01 | | | | | DAILY, First dose on [facility] 12/15/17 | | PM PDT | | | [...] | | | | | dose on [facility] 12/15/17 at 1645, | | AM PDT [...] | times per day), First dose on [facility] | | | | | | | [...] | | | | | | | 7022-7208 Use NIGHT DOSE for | | | | | | | doses scheduled: HS, 3AM, | | | | | | | Nighttime [id number], | | | | | | | [...] 8:28 | | | | | on Phyllis 12/15/17 at 1645, | | AM PDT [...] | | | DAILY, First dose on Phyllis 12/15/17 | | AM PDT | [...]
--- OUTSIDE RECORDS SUMMARY | ~2020-02-04 | XMS | Encounter Summary ---
Demographics + + + | Address | [address] | | | [place] [address] | + + + | Home Phone | | + + + | Preferred Language | Unknown | + + + | Marital Status | | + + + | Hindu Affiliation | CHR | + + + | Race | White | + + + | Ethnic Group | Not or | + + + Author + + + | Author | [facility] | + + + | Organization | [facility] | + + + | Address | Unknown | + + + | Phone | Unavailable | + + + Support + + +---------+ + | Name | Relationship | Address | Phone | + + +---------+ + | Leslie Lentz | ECON | Unknown | | + + +---------+ + Care Team Providers + +------+ + | Care Charging Crane Operator Name | Role | Phone | + +------+ + | Aggie Dunn SHYANN | PCP | | + +------+ + Encounter Details +--------+ + + + + | Date | Type | Department | Care Team | Description | +--------+ + + + + | 12/06/ | Procedure | [facility] LOC | | | | 2020 | Pass | [address] [facility] | | | | | | [facility] | | | | | | [place] [address] | | | +--------+ + + + [...]
--- OUTSIDE RECORDS SUMMARY | ~2020-02-04 | XMS | Encounter Summary ---
Demographics + + + | Address | [address] | | | [place] [address] | + + + | Home Phone | | + + + | Preferred Language | Unknown | + + + | Marital Status | | + + + | Jainism Affiliation | 1013 | + + + [...] [place] | | | | | [address] | | + + + + + | Leslie Lentz | ECON | Unknown | | + + + + + Care Team Providers + +------+ + | Care Hand Glass Cutter Name | Role | Phone | + +------+ + PCP | Unavailable | + +------+ + Encounter Details +--------+ + + + + | Date | Type | Department | Care Team | Description | +--------+ + + + + | 11/10/ | Orders Only | [facility] | Kai Gillespie MD | Lumbar radiculopathy | | 2017 | | NEUROSURGERY [address] | [address] | (Primary Dx); | | | | [address] | [place] [address] | Lumbar facet joint | | | | [place] | [phone] | pain | | | | [address] | | | | | | [phone] | | | +--------+ + + + [...] lateral views of the lumbosacral spine. | [facility] | | Posterior pedicle screw and haylee fusion changes at L3-S1 with interbody | [facility] | | graft spacers. Unchanged position of [...] + | Arnaldo, Rad Results In - 12/08/2016 12:11 PM PDT [...] [address] | [place] | [phone] | | [facility] | | [address] | | | - IMAGING | | [...]
--- OUTSIDE RECORDS SUMMARY | ~2020-02-04 | XMS | Encounter Summary ---
Demographics + + + | Address | [address] | | | [place] [address] | + + + | Home Phone | | + + + | Preferred Language | Unknown | + + + | Marital Status | | + + + | Mandaeism Affiliation | 1013 | + + + | Race | White | + + + | Ethnic Group | Not or | + + + Author + + + | Author | [facility] | | | and [place] | + + + | Organization | [facility] | | | and [...] [place] | | | | | [address] | | + + + + + | Leslie Lentz | ECON | Unknown | | + + + + + Care Team Providers + +------+ + | Care Piper Helper Name | Role | Phone | + +------+ + | Aggie Dunn NP | PCP | | + +------+ + Encounter Details +--------+ + + + + | Date | Type | Department | Care Team | Description | +--------+ + + + + | 11/29/ | Orders Only | [facility] | Provider, | Infection and | | 2019 | | SYSTEM GENERIC OP | [address] | inflammatory | | | | [address]VERSION [address] | [address] | reaction due to | | | | [address] [place], [place] | [place] [address] | other internal | | | | [address] | | orthopedic | | | | [phone] | | prosthetic devices, | | | | | | implants and grafts, | | | | | | subsequent | | | | | | encounter; Acute | | | | | | kidney failure | | | | | | ([facility]); Epigastric | | | | | | pain | +--------+ + + + + [...] | + + +--------+ + + | C-Reactive Protein | Lab | Routin | Infection and | Expected: | | | | e | inflammatory | 01/24/2018, Expires: | | | | | reaction due to | 01/23/2019 | | | | | other internal | | | | | | orthopedic | | | | | | prosthetic devices, | | | | | | implants and grafts, | | | | | | subsequent | | | | | | encounter Acute | | | | | | kidney failure (HCC) | | + + +--------+ + + | CBC with | Lab | Routin | Infection and | Expected: | | Differential | | e | inflammatory | 01/24/2018, Expires: | | | | | reaction due to | 01/23/2019 | | | | | other internal | | | | | | orthopedic | | | | | | prosthetic devices, | | | | | | implants and grafts, | | | | | | subsequent | | | | | | encounter Acute | | | | | | kidney failure (HCC) | | + + +--------+ + + | Sedimentation Rate | Lab | Routin | Infection and | Expected: | | | | e | inflammatory | 01/24/2018, Expires: | | | | | reaction due to | 01/23/2019 | | | | | other internal | | | | | | orthopedic | | | | | | prosthetic devices, | | | | | | implants and grafts, | | | | | | subsequent | | | | | | encounter Acute | | | | | | kidney failure (HCC) | | + + +--------+ + + | Comprehensive | Lab | Routin | Infection and | Expected: | | Metabolic Panel | | e | inflammatory | 01/24/2018, Expires: | | | | | reaction due to | 01/23/2019 | | | | | other internal | | | | | | orthopedic | | | | | | prosthetic devices, | | | | | | implants and grafts, | | | | | | subsequent | | | | | | encounter Acute | | | | | | kidney failure (HCC) | | + + +--------+ + + | Vancomycin Level | Lab | Routin | Infection and | Expected: | | | | e | inflammatory | 01/24/2018, Expires: | | | | | reaction due to | 01/23/2019 | | | | | other internal | | | | | | orthopedic | | | | | | prosthetic devices, | | | | | | implants and grafts, | | | | | | subsequent | | | | | | encounter Acute | | | | | | kidney failure (HCC) | | + + +--------+ + + | CBC with | Lab | Routin | Infection and | Expected: | | Differential | | e | inflammatory | 01/24/2018, Expires: | | | | | reaction due to | 01/24/2019 | | | | | other internal | | | | | | orthopedic | | | | | | prosthetic devices, | | | | | | implants and grafts, | | | | | | subsequent | | | | | | encounter | | + + +--------+ + + | Comprehensive | Lab | Routin | Infection and | Expected: | | Metabolic Panel | | e | inflammatory | 01/24/2018, Expires: | | | | | reaction due to | 01/24/2019 | | | | | other internal | | | | | | orthopedic | | | | | | prosthetic devices, | | | | | | implants and grafts, | | | | | | subsequent | | | | | | encounter | | + + +--------+ + + | Sedimentation Rate | Lab | Routin | Infection and | Expected: | | | | e | inflammatory | 01/24/2018, Expires: | | | | | reaction due to | 01/24/2019 | | | | | other internal | | | | | | orthopedic | | | | | | prosthetic devices, | | | | | | implants and grafts, | | | | | | subsequent | | | | | | encounter | | + + +--------+ + + | C-Reactive Protein | Lab | Routin | Infection and | Expected: | | | | e | inflammatory | 01/24/2018, Expires: | | | | | reaction due to | 01/24/2019 | | | | | other internal | | | | | | orthopedic | | | | | | prosthetic devices, | | | | | | implants and grafts, | | | | | | subsequent | | | | | | encounter | | + + +--------+ + + | Vancomycin, Trough | Lab | Routin | Infection and | Expected: | | | | e | inflammatory | 01/24/2018, Expires: | | | | | reaction due to | 01/24/2019 | | | | | other internal | | | | | | orthopedic | | | | | | prosthetic devices, | | | | | | implants and grafts, | | | | | | subsequent | | | | | | encounter | | + + +--------+ + + | C-Reactive Protein | Lab | Routin | Infection and | Expected: | | | | e | inflammatory | 02/09/2018, Expires: | | | | | reaction due to | 02/09/2019 | | | | | other internal | | | | | | orthopedic | | | | | | prosthetic devices, | | | | | | implants and grafts, | | | | | | subsequent | | | | | | encounter | | + + +--------+ + + | CBC with | Lab | Routin | Infection and | Expected: | | Differential | | e | inflammatory | 02/09/2018, Expires: | | | | | reaction due to | 02/09/2019 | | | | | other internal | | | | | | orthopedic | | | | | | prosthetic devices, | | | | | | implants and grafts, | | | | | | subsequent | | | | | | encounter | | + + +--------+ + + | Sedimentation Rate | Lab | Routin | Infection and | Expected: | | | | e | inflammatory | 02/09/2018, Expires: | | | | | reaction due to | 02/09/2019 | | | | | other internal | | | | | | orthopedic | | | | | | prosthetic devices, | | | | | | implants and grafts, | | | | | | subsequent | | | | | | encounter | | + + +--------+ + + | Comprehensive | Lab | Routin | Infection and | Expected: | | Metabolic Panel | | e | inflammatory | 02/09/2018, Expires: | | | | | reaction due to | 02/09/2019 | | | | | other internal | | | | | | orthopedic | | | | | | prosthetic devices, | | | | | | implants and grafts, | | | | | | subsequent | | | | | | encounter | | + + +--------+ + + | C-Reactive Protein | Lab | Routin | Infection and | Expected: | | | | e | inflammatory | 03/09/2018, Expires: | | | | | reaction due to | 03/09/2019 | | | | | other internal | | | | | | orthopedic | | | | | | prosthetic devices, | | | | | | implants and grafts, | | | | | | subsequent | | | | | | encounter | | + + +--------+ + + | CBC with | Lab | Routin | Infection and | Expected: | | Differential | | e | inflammatory | 03/09/2018, Expires: | | | | | reaction due to | 03/09/2019 | | | | | other internal | | | | | | orthopedic | | | | | | prosthetic devices, | | | | | | implants and grafts, | | | | | | subsequent | | | | | | encounter | | + + +--------+ + + | Sedimentation Rate | Lab | Routin | Infection and | Expected: | | | | e | inflammatory | 03/09/2018, Expires: | | | | | reaction due to | 03/09/2019 | | | | | other internal | | | | | | orthopedic | | | | | | prosthetic devices, | | | | | | implants and grafts, | | | | | | subsequent | | | | | | encounter | | + + +--------+ + + | Helicobacter pylori | Microbiolog | Routin | Epigastric pain | Expected: | | Ag, EIA, Stool | y | e | | 08/24/2018, Expires: | | | | | | 08/25/2019 | + + +--------+ + + documented as of this encounter Visit Diagnoses + + | Diagnosis | + + | Infection and inflammatory reaction due to other internal orthopedic prosthetic | | devices, implants and grafts, subsequent encounter | + + | Acute kidney failure (HCC) Acute kidney failure, unspecified | + + | Epigastric pain Abdominal pain, epigastric | + + documented in this encounter"
--- OUTSIDE RECORDS SUMMARY | ~2020-02-04 | XMS | Encounter Summary ---
Demographics + + + | Address | [address] | | | [place] [address] | + + + | Home Phone [...] Author + + + | Author | [facility] | + + + | Organization | [facility] | + + + | Address | Unknown | + + + | Phone | Unavailable | + + + Support + + +---------+ + | Name | Relationship | Address | Phone | + + +---------+ + | Leslie Lentz | ECON | Unknown | | + + +---------+ + Care Team Providers + +------+ + | Care Master Deputy Sheriff Court Security Name | Role | Phone | + +------+ + | Aggie Dunn SHYANN | PCP | | + +------+ + Reason for Visit + +--------+ + | Reason | Onset | Comments | | | Date | | + +--------+ + | Telephone follow-up | 12/18/ | message from Dr. Ferguson | | | 2020 | | + +--------+ + Encounter Details +--------+ + + + + | Date | Type | Department | Care Team | Description | +--------+ + + + + | 12/18/ | Telephone | [facility] | Tammy Bagley, | Telephone follow-up | | 2020 | | [facility] at | [address] | (message from | | | | Bartolome [address] | Joni Dubon | Marty) | | | | [address] | [place], [place] | | | | | [facility] [place], [facility] | [address] | | | | | [place], [place] | [phone] | | | | | [address] | [...] Telephone Encounter - Tammy Bagley MD - 12/19/2019 11:17 AM PDTSeen today by Dr. Ferguson - adan well - attached MD Kaya Pereyra [facility]. documented in this encounter Plan of Treatment Not on filedocumented as of this encounter Visit Diagnoses Not on filedocumented in this encounter"
--- OUTSIDE RECORDS SUMMARY | ~2020-02-04 | XMS | Encounter Summary ---
Demographics + + + | Address | [address] | | | [place] [address] | + + + | Home Phone | | + + + | Preferred Language | Unknown | + + + | Marital Status | | + + + | Congregation Affiliation | 1013 | + + + [...] [place] | | | | | [address] | | + + + + + | Leslie Lentz | ECON | Unknown | | + + + + + Care Team Providers + +------+ + | Care Radiation Oncology Manager Name | Role | Phone | + +------+ + | Paulo Rothman MD | PCP | | + +------+ + Reason for Visit + +--------+ + | Reason | Onset | Comments | | | Date | | + +--------+ + | Lab Results | 01/06/ | | | | 2018 | | + +--------+ + Encounter Details +--------+ + + + + | Date | Type | Department | Care Team | Description | +--------+ + + + + | 01/06/ | Telephone | [facility] | Kai Gillespie MD | Lab Results | | 2018 | | NEUROSURGERY [address] | [address] | | | | | [address] | [place] [address] | | | | | [place] | [phone] | | | | | [address] | | | | | | [phone] | | | +--------+ + + + [...] this encounter Miscellaneous Notes Telephone Encounter - Alexandra Arndt RN - 01/06/2018 11:29 AM PDTPatients PCP will take over m anagement of the Vanco on Tuesday01/09/18. For now we will just give the lab the information they requested and the PCP can request the "per pharmacy protocol" if they wish for the yvrose zeng to manage this order fully. Per JOSUE Conroy, we will request they draw Vanco trough's every three days. And the end da te for the Vanco will be 01/31/18. I spoke to UMM Bone at [facility]. I passed along the information provided by Marycarmen. They will d raw the trough every three days as well as drawing bun/oven baker at the same time. I let her know that the end date is set for 01/31/18. Next trough/labs will be Tuesday. We also discussed glory t the patient's PCP will take over management of this order starting on Tuesday. She verbaliz ed understanding and will set a reminder to call PCP on Tuesday to f/u and discuss order furt her. All questions and concerns answered at this time. Lab results from 01/06/18 at 0841 Creatinine-0.84 GFR estimated->60 Vanco trough-8.4 Last Vanco dose 01/05/18 at 1800 A M PDTTelephone Encounter - Alexandra Arndt RN - 01/06/2018 9:[address] Gillespie and Marycarmen we are not going to change the am dose of the Vanco infusion. I spoke to the lab and let them know this, they will begin the infusion with no change in dose. Per the lab and RN doing the infusion, we can order that the Vanco be adjusted "Per pharmac y protocol" as needed, they said if we do it this way the pharmacy will monitor renal functi on and adjust doses appropriately based on trough and Skein Winder levels. The lab will still send us the levels of Skein Winder and Vanco but the pharmacy will essentially manage the infusions and adju stments. Would we like to continue monitoring and having control of this or allow the pharmacy to ma nage this infusion going forward? Please advise. Thank you. elephone Encounter - Alexandra Arndt RN - 01/06/2018 9:37 AM PDTFewing called in regarding Fredis's morning Vanco trough and a few other questions he had re garding his Vanco order. Fredis's Vanco trough is 8.4 this morning and they were wondering if we want a dose adjustment . Initially it sounded like they had already started to infuse his am Vanco, but Diaz call ed back and states that they are waiting to see about the dose adjustment. He is also asking for an end date for the Vanco order and dates for the Vanco trough. The V anco was started on 01/04/18 and is ordered for four weeks. I spoke to Marycarmen and gave her the fax with his Vanco and Skein Winder levels. I will follow up to jhony mark if we are going to adjust his Vanco dose for this next infusion r/t his Vanco trough from this am. documented in this encounter Plan of Treatment Not on filedocumented as of this encounter Visit Diagnoses Not on filedocumented in this encounter
--- OUTSIDE RECORDS SUMMARY | ~2020-02-04 | XMS | Encounter Summary ---
Demographics + + + | Address | [address] | | | [place] [address] | + + + | Home Phone | | + + + | Preferred Language | Unknown | + + + | Marital Status | | + + + | Mormonism Affiliation | 1013 | + + + | Race | White | + + + | Ethnic Group | Not or | + + + Author + + + | Author | [facility] | | | and [place] | + + + | Organization | [facility] | | | [...] [place] | | | | | [address] | | + + + + + | Leslie Lentz | ECON | Unknown | | + + + + + Care Team Providers + +------+ + | Care Claim Clerk Name | Role | Phone | + +------+ + PCP | Unavailable | + +------+ + Encounter Details +--------+ + + + + | Date | Type | Department | Care Team | Description | +--------+ + + + + | 09/02/ | Hospital | [facility] | Federico Anderson | 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
--- OUTSIDE RECORDS SUMMARY | ~2020-02-04 | XMS | Encounter Summary ---
Demographics + + + | Address | [address] | | | [place] [address] | + + + | Home Phone | | + + + | Preferred Language | Unknown | + + + | Marital Status | | + + + | Methodist Affiliation | 1013 | + + + | Race | White | + + + | Ethnic Group | Not or | + + + Author + + + | Author | [facility] | | | and [place] | + + + | Organization | [facility] | | [...] [address] | | | | | [address] | | + + + + + | Leslie Lentz | ECON | Unknown | | + + + + + Care Team Providers + +------+ + | Care Double Bass Player Name | Role | Phone | + +------+ + PCP | Unavailable | + +------+ + Encounter Details +--------+ + + + + | Date | Type | Department | Care Team | Description | +--------+ + + + + | 11/08/ | Hospital | [facility] | Kai Gillespie MD | Lumbar | | 2018 | Encounter | MED CTR XRAY [address] | [address] | radiculopathy; | | | | [place] | [place] [address] | Foraminal stenosis | | | | [place] [address] | [phone] | of lumbar region; | | | | [phone] | | Pseudoarthrosis of | | | | | Shiva Issa MD | lumbar spine; Right | | | | | [address] | foot drop; S/P | | | | | [place] | lumbar fusion; | | | | | [id number] | Controlled diabetes | | | | | | mellitus type 2 with | | | | | | complications, | | | | | | unspecified whether | | | | | | longterm insulin | | | | | | use ([facility]); Diabetes | | | | | | mellitus of other | | | | | | type with | | | | | | complication, | | | | | | unspecified whether | | | | | | longterm insulin | | | | | | use ([facility]); Lumbar | | | | [...] | ibuprofen | | | 0 | 10/04/20 | | | (ADVIL,MOTRIN) 600 | | [...] tablets by | 45 | 0 | 10/26/19 | | | HYDROcodone-acetamin | mouth every 4 hours | tablet | | 18 | 8 | | ophen (NORCO) 10-325 [...] +--------+ + + + | XR CHEST PA AND | Routin | 11/08/2017 | Lumbar | Results for this | | LATERAL | e | 11:39 AM | radiculopathy | procedure are in [...] whether | | | | | | longterm insulin | | | | | | use ([facility]) Diabetes | | | | | | mellitus of other | | | | | | type with | | | | | | complication, | | | | | | unspecified whether | | | | | | longterm insulin | | | | | | use ([facility]) Lumbar | | | | | | facet joint pain | | | | | | Obstructive sleep | | | | | | apnea syndrome | | | | | | Essential | | | | | | hypertension | | + +--------+ + + + documented in this encounter Results XR Chest PA and [...] mellitus type 2 with complications, unspecified whether longterm | | insulin use (HCC) | + + | Diabetes mellitus of other type with complication, unspecified 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
--- OUTSIDE RECORDS SUMMARY | ~2020-02-04 | XMS | Encounter Summary ---
Demographics + + + | Address | [address] | | | [place] [address] | + + + | Home Phone [...] [place] | | | | | [address] | | + + + + + | Leslie Lentz | ECON | Unknown | | + + + + + Care Team Providers + +------+ + | Care Surgical Scrub Tech Name | Role | Phone | + +------+ + PCP | Unavailable | + +------+ + Reason for Visit +---------+ + | Reason | Comments | +---------+ + | Post Op | 12w PO | +---------+ + Encounter Details +--------+---------+ + + + | Date | Type | Department | Care Team | Description | +--------+---------+ + + + | 02/08/ | Office | [facility] | Sree Cunha | S/P lumbar fusion | | 2017 | Visit | NEUROSURGERY [address] | [address] | (Primary Dx); | | | | [address] | [address] | Spondylosis of | | | | [place] | [place] | lumbar region | | | | [address] | [phone] | without myelopathy | | | | [phone] | | or radiculopathy; | | | | | | Facet arthropathy, | | | | | | lumbar | +--------+---------+ + + + Social [...] + + + | Blood Pressure | 127/90 | 02/08/2017 2:57 PM | | | | | PDT | | + + + + + | Pulse | 92 | 02/08/2017 2:57 PM | | | | | PDT [...] + + + + | Weight | 129 kg (284 lb 6.3 | 02/08/2017 2:57 PM | | | | oz) | PDT | | + + + + + | Height | 193 cm (6' 4") | 02/08/2017 2:57 PM | | | | | PDT | | + + + + + | Body Mass Index | 34.62 | 02/08/2017 2:57 PM | | | | | PDT [...] of this encounter Patient Instructions Patient Instructions Sree Cunha PA-C - 02/08/2017 3:00 PM PDTPlease follow up in [address] Gillespie Continue with PT and home exercises as tolerated. documented in this encounter Progress Notes Sree Cunha PA-C - 02/08/2017 3:00 PM PDTFormatting of this note might be diffe rent from the original. Sree Cunha PA-C [address] [facility], [address] [place] [address] FAX: NEUROSURGERY FOLLOW-UP CHIEF COMPLAINT: Chief Complaint Patient presents with Post Op 12w PO HISTORY OF PRESENT ILLNESS: The patient is a 56 y.o. male that had a lumbar fusion for cali nosis and radiculopathy around 3 months ago. He returns and overall is doing good. He comp lains of some mild right leg symptoms. His largest problem is the right dorsiflexion weakne ss. He recently had a fall due to this. He has met with physical therapy and is doing his home exercises. They are working on getting a ankle brace for his right foot drop. This suarez s been relatively stable since surgery. His preoperative sciatic pain is relieved. His aristides lity of life has improved greatly since surgery. The patient has been walking as much as di benjamin. He is still taking pain medications at this point. The patient has had no issues w ith his surgical site. CURRENT MEDICATIONS: Current Outpatient [...] use drugs. INTERIM PHYSICAL EXAMINATION: Blood pressure 127/90, pulse 92, height 1.93 m (6' 4"), weight 129 kg (284 lb 6.3 oz). Body mass index is 34.62 kg/m. GENERAL: Lele Mustafa is in no acute distress with unlabored respirations. SPINE: The patient s incisions are healing well without drainage, significant erythema, o r discharge. EXTREMITIES: No lower extremity edema. NEUROLOGICAL EXAMINATION: MENTAL STATUS: The patient is awake, alert, and oriented. He follows simple and complex commands MOTOR EXAM: Motor strength is 4+ leg weakness on the right 4-/5 left dorsiflexion. SENSORY EXAM: The sensory examination is remarkable [...] the current x-ray and his previous imagi ng. ASSESSMENT: Encounter Diagnoses Name Primary? S/P lumbar fusion Yes Spondylosis of lumbar region without myelopathy or radiculopathy Facet arthropathy, lumbar Past Medical History: Diagnosis Date Anxiety Depression [...] surgery. I increased the patient s activities now allowing a 30 pound lifting restriction that can be gradually increased to an as tolerated limit. The patient should increase range of ilia on activities as tolerated. They should continue regular exercise and strengthening with piper archuleta hope that they can avoid additional surgery. He is working with PT for his leg weakness. Gayle archuleta is waiting to hear back regarding a brace for his left drop foot. His primary care is managing his pain medicine. I have given a small prescription due to no t seeing his PCP until next week. Follow-up in [address] Gillespie ELECTRONICALLY SIGNED BY: Sree Cunha PA-C, 02/08/2017 15:38 Franchesca Krishnamurthy , Event Lighting Specialist - 02/08/2017 3:00 PM PDTREVIEW OF SYSTEMS GENERALLY: No fever, + [...] In addition, the patient has numbness/pain of elgs, pain in back. PSYCHIATRIC: No depression, no [...] RHEUMATOLOGIC: No joint arthritis, no rheumatoid arthritis. document ed in this encounter Plan of Treatment Not on filedocumented as of this encounter Visit Diagnoses + + | Diagnosis | + + | S/P lumbar fusion - Primary Arthrodesis status | + + | Spondylosis of lumbar region without myelopathy or radiculopathy Lumbosacral | | spondylosis without myelopathy | + + | Facet arthropathy, lumbar Lumbosacral spondylosis without myelopathy | + + documented in this encounter
--- OUTSIDE RECORDS SUMMARY | ~2020-02-04 | XMS | Encounter Summary ---
Demographics + + + | Address | [address] | | | [place] [address] | + + + | Home Phone | | + + + | Preferred Language | Unknown | + + + | Marital Status | | + + + | Orthodox Affiliation | CHR | + + + | Race | White | + + + | Ethnic Group | Not or | + + + Author + + + | Organization | Unknown | + + + | Address | Unknown | + + + | Phone | Unavailable | + + + Support + + +---------+ + | Name | Relationship | Address | Phone | + + +---------+ + | Leslie Lentz | ECON | Unknown | | + + +---------+ + Care Team Providers + +------+ + | Care Inspector Heating And Refrigeration Name | Role | Phone | + +------+ + | Aggie Dunn NP | PCP | | + +------+ + Encounter Details +--------+--------+ + + + | Date | Type | Department | Care Team | Description | +--------+--------+ + + + | 12/05/ | Travel | | | | | 2020 | | | | | +--------+--------+ + + + Social History + +-------+ [...]
--- OUTSIDE RECORDS SUMMARY | ~2020-02-04 | XMS | Encounter Summary ---
Demographics + + + | Address | [address] | | | [place] [address] | + + + | Home Phone | | + + + | Preferred Language | Unknown | + + + | Marital Status | | + + + | Druze Affiliation | 1013 | + + + [...] [place] | | | | | [address] | | + + + + + | Leslie Lentz | ECON | Unknown | | + + + + + Care Team Providers + +------+ + | Care Rigging Foreman Name | Role | Phone | + +------+ + PCP | Unavailable | + +------+ + Encounter Details +--------+ + + + + | Date | Type | Department | Care Team | Description | +--------+ + + + + | 08/26/ | Hospital | [facility] | Kai Gillespie MD | Back pain, | | 2017 | Encounter | MED CTR XRAY [address] | [address] | unspecified back | | | | [place] | [place] [address] | location, | | | | [place] [address] | [phone] | unspecified back | | | | [phone] | | pain laterality, | | | | | | unspecified | | | | | | chronicity | +--------+ + + + + Social [...] + + + +---------+ + + | ALPRAZolam (XANAX) | Take 1 mg by mouth | | 0 | | | | 1 MG tablet | nightly as needed | | | | 7 | | | for Sleep. | | | | | + + + +---------+ + + | cefpodoxime | Take 200 mg by | | 0 | 02/06/20 | | | (VANTIN) 200 mg | mouth. | | | 16 | 7 | | tablet | | | | | | + + + +---------+ + + | citalopram | Take 40 mg by mouth | | 0 | | | | (CELEXA) 40 mg | Daily. | | | | 7 | | [...] + | XR LUMBAR SPINE 4 + | Routin | 08/26/2016 | Back pain, | Results for this | | VW | e | 9:10 AM | unspecified back | procedure are in the | | | | PDT | location, | results section. | | | | | unspecified back | | | | | | pain laterality, | | | | | | unspecified | | | | | | chronicity | | + +--------+ + + + documented in this encounter Results XR Lumbar Spine 4 [...] + | Arnaldo, Rad Results In - 08/26/2016 10:44 AM PDT [...] [address] | [address] | [place] | [phone] | | [facility] | | [address] | | | - IMAGING | | | | + + + + + documented in this encounter Visit Diagnoses + + | Diagnosis | + + | Back pain, unspecified back location, unspecified back pain laterality, unspecified | | chronicity | + + documented in this encounter"
--- OUTSIDE RECORDS SUMMARY | ~2020-02-04 | XMS | Encounter Summary ---
Demographics + + + | Address | [address] | | | [place] [address] | + + + | Home Phone [...] [place] | | | | | [address] | | + + + + + | Leslie Lentz | ECON | Unknown | | + + + + + Care Team Providers + +------+ + | Care Lead Auditor Name | Role | Phone | + +------+ + PCP | Unavailable | + +------+ + Encounter Details +--------+ + + + + | Date | Type | Department | Care Team | Description | +--------+ + + + + | 12/28/ | Hospital | [facility] | Conversion | Sinus pain | | 2011 | Encounter | [facility] | Transaction, | | | | | [address] | Provider Unknown | | | | | [place], [place] | [phone] | | | | | [address] | | | | | | [phone] | Ghanshyam Azevedo | | | | | | MD [address] | | | | | | [facility] | | | | | | [place] | | | | | | [phone] | | | | | | | [...] + +--------+ + + + | CT SINUS WO CONTRAST | Routin | 12/29/2011 | | Results for this | | | e | 3:22 PM | | procedure are in the | | | | PDT | | results section. | + +--------+ + + + documented in this encounter Results CT Sinus wo Contrast (12/29/2011 3:22 PM PDT) + + | Specimen | + + | | + + + + + | Narrative | Performed At | + + + | [facility] S[facility] 12/29/2011 3:18 PM HISTORY: 51 | | | years. Male. Sinus pain. TECHNIQUE: Axial 1.25-mm noncontrast | | | images of the sinuses were acquired. Coronal reconstructions were | | | performed. COMPARISON: None. FINDINGS: The superior portion | | | of the anterior nasal septum is deviated to the right. The posterior | | | and anterior portions of the septum are not deviated. A tiny | | | left-sided luis enrique bullosa is noted. Normal curvature of the nasal | | | turbinates is seen bilaterally. The sinuses are well aerated. No | | | significant mucosal thickening is noted. No air-fluid levels are | | | seen. The ostiomeatal units are patent bilaterally. The | | | frontoethmoidal recesses are widely patent. The regional osseous | | | structures do not demonstrate lytic or blastic lesions. Visualized | | | orbits and their contents are normal. The temporomandibular joints | | | are partially visualized and appear normal. The sella turcica is | | | normal. The visualized intracranial contents do not show midline | | | shift or hydrocephalus. IMPRESSION: 1. Normal appearance of the | | | paranasal sinuses with the exception of mild rightward deviation of | | | the superior anterior portion of the nasal septum. Electronically | | | signed by Nico Sewell DO on 12/29/2011 6:09 PM | | + + + + + | Procedure Note | + + | Juni Mcintosh Conversion - 12/16/2018 7:42 AM PDT [facility]12/29/2011 3:18 | | PM HISTORY:51 years. Male. Sinus pain. TECHNIQUE:Axial 1.25-mm noncontrast images of | | the sinuses were acquired. Coronal reconstructions were performed. COMPARISON:None. | | FINDINGS:The superior portion of the anterior nasal septum is deviated to the right. | | The posterior and anterior portions of the septum are not deviated. A tiny left-sided | | luis enrique bullosa is noted. Normal curvature of the nasal turbinates is seen bilaterally. | | The sinuses are well aerated. No significant mucosal thickening is noted. No | | air-fluid levels are seen. The ostiomeatal units are patent bilaterally. The | | frontoethmoidal recesses are widely patent. The regional osseous structures do not | | demonstrate lytic or blastic lesions.Visualized orbits and their contents are normal.The | | temporomandibular joints are partially visualized and appear normal.The sella turcica | | is normal.The visualized intracranial contents do not show midline shift or | | hydrocephalus. IMPRESSION:1. Normal appearance of the paranasal sinuses with the | | exception of mild rightward deviation of the superior anterior portion of the nasal | | septum. | |the nasal turbinates is seen bilaterally. | |The sinuses are well aerated. No significant mucosal thickening is noted. No air-fluid le vels are seen. The ostiomeatal units are patent bilaterally. The frontoethmoidal recesses are widely patent. | | | |The regional osseous structures do not demonstrate lytic or blastic lesions. | |Visualized orbits and their contents are normal. | |The temporomandibular joints are partially visualized and appear normal. | |The sella turcica is normal. | |The visualized intracranial contents do not show midline shift or hydrocephalus. | | | |IMPRESSION: | |1. Normal appearance of the paranasal sinuses with the exception of mild rightward deviati on of the superior anterior portion of the nasal septum. | | | | | + + documented in this encounter Visit Diagnoses + + | Diagnosis | + + | Sinus pain Other diseases of nasal cavity and sinuses | + + documented in this encounter"
--- OUTSIDE RECORDS SUMMARY | ~2020-02-04 | XMS | Encounter Summary ---
Demographics + + + | Address | [address] | | | [place] [address] | + + + | Home Phone | | + + + | Preferred Language | Unknown | + + + | Marital Status | | + + + | Taoist Affiliation | 1013 | + + + | Race | White | + + + | Ethnic Group | Not or | + + + Author + + + | Author | [facility] | | | and [place] | + + + | Organization | [facility] | | | [...] [address] | | | | | [address] | | + + + + + | Leslie Lentz | ECON | Unknown | | + + + + + Care Team Providers + +------+ + | Care Communications Superintendent Name | Role | Phone | + +------+ + PCP | Unavailable | + +------+ + Reason for Visit + +--------+ + | Reason | Onset | Comments | | | Date | | + +--------+ + | Imaging Only | 08/23/ | | | | 2017 | | + +--------+ + Encounter Details +--------+ + + + + | Date | Type | Department | Care Team | Description | +--------+ + + + + | 08/23/ | Telephone | [facility] | Kai Dos Santos MD | Imaging Only | | 2017 | | NEUROSURGERY [address] | [address] | | | | | [address] [facility] [address] | [place] [address] | | | | | [place] | [phone] | | | | | [address] | | | | | | [phone] | | | +--------+ + + + [...] this encounter Miscellaneous Notes Telephone Encounter - Erik Romero - 09/20/2017 11:33 AM PDTPatient scheduled 10/25/17 Elect ronically signed by Erik Romero at 09/20/2017 11:33 AM PDTTelephone Encounter - Erik Romero - 09/15/2017 11:00 AM PDTCalled patient to schedule LM elephone Encounter - Radha Romero RN - 09/13/2017 2:31 PM PDTRouting to PSR to call patient to schedule elephone Encounter - Sonido Lund PA-C - 09/08/2017 6: 27 AM PDTThe patient should have a follow-up appointment in the office with Dr. dos santos to revie w the results and make further recommendations. Thank you elephone Encounter - Bre Guido, Medical As sistant - 08/29/2017 3:[address] and MRI images and report now available on ISite. Routing to Dr. Dos Santos to review elephone Encounter - Bre Guido Global Category Manager - 08/26/2017 10:20 AM PDTAttempted to reach [facility] imaging by phone to confirm if patient has completed and /or scheduled both the Lumbar CT and MRI at their facility. I have sent a fax via [employer] to [facility] any Lumbar Spine imaging be pushed to [employer] with report. Will follow up on TuesdayEle ctronically signed by Munir Arceo Assistant at 08/26/2017 10:24 AM PDTTelephone Encounter - Radha Romero RN - 08/23/2017 2:56 PM PDTPSR received incoming call from janna moody to notify us he completed his MRI at [facility]. Patient also reported that the CT lumbar or alonso was not at [facility] and has not yet been completed. Referral #[id number] confirms CT was authorized and MA routed to [facility] to schedule Left message to confirm order with [facility] and re-routed order via fax with note to push results to [employer] upon completion and request for [facility] to call patient to [facility] CT. documented in t his encounter Plan of Treatment Not on filedocumented as of this encounter Visit Diagnoses Not on filedocumented in this encounter"
--- OUTSIDE RECORDS SUMMARY | ~2020-02-04 | XMS | Encounter Summary ---
Demographics + + + | Address | [address] | | | [place] [address] | + + + | Home Phone | | + + + | Preferred Language | Unknown | + + + | Marital Status | | + + + | Yarsani Affiliation | 1013 | + + + | Race | White | + + + | Ethnic Group | Not or | + + + Author + + + | Author | [facility] | | | and [place] | + + + | Organization | [facility] | | | [...] [place] | | | | | [address] | | + + + + + | Leslie Lentz | ECON | Unknown | | + + + + + Care Team Providers + +------+ + | Care Splitter Tender Name | Role | Phone | + +------+ + | Aggie Dunn NP | PCP | | + +------+ + Encounter Details +--------+ + + + + | Date | Type | Department | Care Team | Description | +--------+ + + + + | 06/26/ | Emergency | [facility] | Bryan Davidson | Epigastric pain; | | 2018 | | [facility] | DO Mahesh Gold | History of gastric | | | | EMERGENCY CENTER | [address] | ulcer | | | | [address] | [place], [place] | | | | | [place], [place] | [address] | | | | | [address] | [phone] | | | | | [phone] | | | +--------+ + + + [...] + + + | Blood Pressure | 173/85 | 06/26/2018 9:26 PM | | | | | PST | | + + + + + | Pulse | 72 | 06/26/2018 9:26 PM | | | | | PST | | + + + + + | Temperature | 36.8 C (98.2 F) | 06/26/2018 9:26 PM | | | | | PST | | + + + + + | Respiratory Rate | 18 | 06/26/2018 9:26 PM | | | | | PST | | + + + + + | Oxygen Saturation | - | - | | + + + + + | Inhaled Oxygen | - | - | | | Concentration | | | | + + + + + | Weight | 118.3 kg (260 lb | 06/26/2018 9:26 PM | | | | 12.8 oz) | PST | | + + + + + | Height | - | - | | + + + + + | Body Mass Index | 31.76 | 05/23/2018 1:24 PM | | | | | PST [...] | | | | | | | [id number]= 3 | | | | | | | -562= 6 | | | | | | | [id number]= 9 | | | | | | | [id number]= 12 | | | | | | | -798= 15 | | | | | | [...] | | | | | | | [id number]= 6 | | | | | | | [id number]= 9 | | | | | | | -240= 12 | | | | | | | bkocq009-030= 15 | | | | | | | [id number]= 18 | | | | | | [...] + + documented as of this encounter ED Notes Conversion Transaction, Provider Unknown - 06/26/2018 7:04 PM PSTFormatting of this note m ight be different from the original. ED Provider Notes by DHRUV Luong at 06/26/181903 Author: DHRUV Luong Service: Emergency Department Author Type: Advanced Registered Nurse Practitioner Filed: 06/26/182143 Date of Service: 06/26/181903 Status: Attested Distribution Sales Manager: DHRUV Luong (Advanced Registered Nurse Practitioner) Cosigner: Bryan Davidson DO at 06/27/18241 Attestation signed by Bryan Davidson DO at 06/27/18241 I have reviewed the note and supervised the mid-level provider. Procedures [facility] EMERGENCY DEPARTMENT History of Present Illness Patient Identification Lele Mustafa is a 58 y.o. male. Patient information was obtained from patient. History/Exam limitations: none. Patient presented to the Emergency Department by: Car Chief Complaint Chief Complaint Patient presents with GI Bleeding started today The patient complains of abdominal pain. Onset of symptoms was one week ago, with a constan t course since that time. The symptoms are described to be of moderate severity. The patien t also complains of nausea, and rectal bleeding. The patient describes the quality and loca tion of the symptoms as the following: rates pain 7/10 and describes as epigastric and sharp /stabbing pain. Care prior to arrival consisted of pepto bismol, with no relief. Past Medical History Diagnosis Date Chronic pain Diabetes mellitus, type 2 (HCC) Hypertension Sleep apnea Uses CPAP Past Surgical History Procedure Laterality Date FINGER SURGERY Left ring finger HIP SURGERY KNEE SURGERY Left SPINE SURGERY 5 back surgeries Prior to Admission medications Medication Sig Start Date End Date Taking? Authorizing Provider acetaminophen (TYLENOL) 500 MG tablet Take 500-1,000 mg by mouth. Historical Provider aluminum-magnesium hydroxide-simethicone (MAALOX) 200-200-20 MG/5ML SUSP Take 30 mLs by sandra th every 6 (six) hours as needed. 05/23/18 Mila Scruggs DO aspirin EC 81 MG EC tablet Take 81 mg by mouth. Historical Provider atorvastatin (LIPITOR) 40 MG tablet Take 40 mg by mouth daily. 01/11/18 07/10/18 Historical Provider calcium carbonate (TUMS) 500 MG chewable tablet Take 2 tablets by mouth every 6 (six) hours as needed. 05/23/18 05/23/19 Mila Scruggs DO Cholecalciferol (VITAMIN D) 2000 units tablet Take 2,000 Units by mouth. Historical Prov ider cyclobenzaprine (FLEXERIL) 10 MG tablet Take 10 mg by mouth. 12/23/15 Historical Provider doxycycline (MONODOX) 100 MG capsule Take 1 capsule by mouth 2 (two) times daily. 02/09/18 Bryan Claudio DO DULoxetine (CYMBALTA) [address] capsule Take 60 mg by mouth. 01/22/16 Historical Provider gabapentin (NEURONTIN) 300 MG capsule Take 300 mg by mouth. 01/22/16 Historical Provider glucagon 1 MG injection Inject 1 mg into the muscle. Historical Provider HYDROcodone-acetaminophen (NORCO) 10-325 MG per tablet 1 tablet 3 (three) times daily as ne eded (Takes routine 3 times daily). 01/23/16 Historical Provider ibuprofen (MOTRIN) 600 MG tablet 01/27/16 Historical Provider insulin detemir (LEVEMIR) 100 UNIT/ML injection Inject 80 Units into the skin. 12/25/15 His torical Provider insulin lispro, human, (HUMALOG) 100 UNIT/ML injection Inject 3-18 Units into the skin. Historical Provider irbesartan-hydrochlorothiazide (AVALIDE) 150-12.5 MG per tablet 12/27/15 Historical Provid er lactulose (CHRONULAC) 10 GM/15ML solution Take 20 g by mouth. 01/04/18 Historical Provider losartan-hydrochlorothiazide (HYZAAR) 50-12.5 MG per tablet Take 1 tablet by mouth. Hist orical Provider MAGNESIUM PO Take 250 mg by mouth daily. Historical Provider metFORMIN (GLUCOPHAGE) 1000 MG tablet Take 1,000 mg by mouth 2 (two) times daily. 01/22/16 Historical Provider methylPREDNISolone 4 MG dose pack Take 6 pills on day one, 5 pills on day two, 4 pills on d ay three, 3 pills on day four, 2 pills on day five, and 1 pill on day six. Total course six days. Patient not taking: Reported on 01/23/2018 12/06/15 Evin Rodriguez MD nitroGLYCERIN (NITROSTAT) 0.[address] 1 tablet under the tongue every 5 (five) m inutes as needed for Chest pain. 05/23/18 05/23/19 Mila Scruggs DO oxycodone 10 MG tablet Take 10-15 mg by mouth. 01/12/18 Historical Provider pantoprazole (PROTONIX) 40 MG tablet Take 1 tablet by mouth 2 (two) times daily for 60 days . 05/23/18 07/22/18 Mila Scruggs DO Potassium 99 MG TABS Take 99 mg by mouth. Historical Provider traMADol (ULTRAM) 50 MG tablet 02/04/16 Historical Provider Allergies Allergen Reactions Codeine Other (See Comments) and Rash "makes my skin crawl" "makes my skin crawl" "makes my skin crawl" "makes my skin crawl" Morphine Other (See Comments) and Swelling Joint swelling Joint swelling Joint swelling Joint pain Oxycodone Nausea and Vomiting and Other (See Comments) Tremors Social History Social History Marital status: Spouse name: N/A Number of children: N/A Years of education: N/A Occupational History Not on file. Social History Main Topics Smoking status: Former Smoker Quit date: 01/09/2003 Smokeless tobacco: Former User Alcohol use No Drug use: No Sexual activity: No Other Topics Concern Not on file Social History Narrative No narrative on file History reviewed. No pertinent family history. ROS Review of Systems Constitutional: Negative for chills and fever. HENT: Negative for congestion and sore throat. Respiratory: Negative for cough and shortness of breath. Cardiovascular: Negative for chest pain. Gastrointestinal: Positive for abdominal pain, blood in stool and nausea. Negative for cons tipation, diarrhea and vomiting. Genitourinary: Negative for dysuria and flank pain. Musculoskeletal: Negative for back pain. Neurological: Negative for dizziness, loss of consciousness and headaches. Endo/Heme/Allergies: Negative. Psychiatric/Behavioral: Negative. Physical Exam BP (!) 173/101 (BP Location: Left upper arm) | Pulse 95 | Temp 98 F (36.7 C) (Tempora l) | Resp 20 | Wt 118.3 kg (260 lb 12.9 oz) | SpO2 97% | BMI 31.76 kg/m Pulse Oximetry interpretation: Normal Physical Exam Constitutional: He is oriented to person, place, and time. Vital signs are normal. He appea rs well-developed and well-nourished. He is cooperative. Non-toxic appearance. No distress. HENT: Head: Normocephalic and atraumatic. Mouth/Throat: Uvula is midline, oropharynx is clear and moist and mucous membranes are norm al. Eyes: Pupils are equal, round, and reactive to light. Conjunctivae and EOM are normal. Cardiovascular: Normal rate and regular rhythm. No murmur heard. Pulmonary/Chest: Effort normal and breath sounds normal. No respiratory distress. He has no wheezes. Abdomina/Gl: Soft. Bowel sounds are normal. He exhibits no mass. There is tenderness in the right upper quadrant, epigastric area and left upper quadrant. There is no guarding, no CVA tenderness, no tenderness at McBurney's point and negative Dsouza's sign. Genitourinary: Rectum normal. Rectal exam shows no external hemorrhoid, no internal hemorrh oid, no fissure, anal tone normal and guaiac negative stool (Dark stool consistent with pept o bismol use. ). Guaiac negative stool (Dark stool consistent with pepto bismol use. ). Neurological: He is alert and oriented to person, place, and time. Skin: Skin is warm and dry. Capillary refill takes less than 2 seconds. Psychiatric: He has a normal mood and affect. His speech is normal and behavior is normal. Judgment and thought content normal. Nursing note and vitals reviewed. Medical Decision Making and Emergency Department Course ED Department Course 58 y.o. male presenting with epigastric abdominal pain, with radiation to RUQ/LUQ. Patient with history of cholecystectomy, and gastric ulcers. Initial vitals reveal high blood pres sure; repeat vitals improved. DDX: constipation/obstruction (normal BM today), diverticulitis, appendicitis (no RLQ abdom inal tenderness), nephrolithiasis (no CVA tenderness), UTI/pyelonephritis, biliary colic, P ancreatitis (lipase WNL), STD, gastritis, hepatitis, bowel perforation, AAA, vs other. Jaclyn ent was seen in Intake with IV, Labs, UA, and CT ordered. ED Course as of Jun 27 2143 Mon Jun 26, 20181928 CBC unremarkable. No leukocytosis or anemia noted. WBC: 6.13 1930 Glucose elevated at 321. Otherwise CMP unremarkable. No other electrolyte derangement. LFTs and Kidney function WNL GLUCOSE: (!) 321 1931 Lipase WNL LIPASE: 45 2025 *Mild hepatomegaly. Status post cholecystectomy. *Left adrenal myelolipoma. *Colonic diverticulosis without acute diverticulitis. *Advanced lumbar spondylosis and lumbar spine fusion as detailed above. The S1 screws are relatively peripherally placed, appears to extend to the sacroiliac joints and through the anterior cortex. *Remote T10 compression fracture, status post vertebroplasty. CT Abdomen & Pelvis with contrast 2052 Discussed results with patient and family. Patient exhibits knowledge. Aware of result s from CT regarding kidney cysts and adrenal myelolipoma. Patient feeling better at this dulce maria e. Will give GI cocktail prior to DC. Have discussed follow up with PCP and referral for GI for upper GI scope. Patient exhibits knowledge. 2058 BP has improved, HR 80. O2 94%. Patient vitals remain stable. Stable for discharge. B P: 144/72 Have discussed results with Dr Davidson. At this time I do not appreciate any emergent concern s that would necessitate admission, transfer or surgical consult. Patient symptoms consisten t with history of gastric ulcers/GERD. Have discussed treatment with patient and will provid e with prescriptions for omeprazole and carafate. Patient to follow up with PCP this week. P atient exhibits knowledge. Patient was provided dilaudid for pain control. At this time, given the information gather ed, most likely diagnosis is GERD/Ulcer. Time given for questions and all questions answere d to patient satisfaction. Pt to call PCP tomorrow and arrange follow up. Patient is to retu rn to the emergency department if having worsening pain, fevers, vomiting, inability to tole rate PO, inability to have a BM, or other worrisome symptoms. Thank you Dr Davidson for your consult. ED Medication Administration from 06/26/2018 1807 to 06/26/20182143 Date/Time Order Dose Route Action Action by 06/26/2018 193 iohexol (OMNIPAQUE 350) 350 mg/mL injection 100 mL 100 mL Intravenous Giv en Vasiliy Jones, RT 06/26/20182126 sodium chloride (bolus) 0.9 % 1,000 mL 0 mL Intravenous Stopped Shar Barth RN 06/26/20182026 sodium chloride (bolus) 0.9 % 1,000 mL 1,000 mL Intravenous New Bag Daniel Ladd RN 06/26/20182026 ondansetron (ZOFRAN) injection 4 mg 4 mg Intravenous Given Pam wade RN 06/26/20182026 HYDROmorphone (DILAUDID) injection 1 mg 1 mg Intravenous Given Pam anna RN 06/26/20182113 lidocaine viscous 2 % 10 mL, aluminum-magnesium hydroxide-simethicone (MA ALOX) 200-200-20 MG/5ML 30 mL solution 40 mL Oral Given Shar Barth, RN Records Reviewed Old medical records. Nursing notes. Labs & Radiology Results Laboratory Evaluation Results Procedure Component Value Ref Range Date/Time Complete Metabolic Panel [[id number]] (Abnormal) Collected: 06/26/181829 Order Status: Completed Specimen: Blood Updated: 06/26/181903 SODIUM 141 135 - 145 mmol/L POTASSIUM 4.2 3.5 - 4.9 mmol/L CHLORIDE 104 99 - 109 mmol/L CO2 26 23 - 32 mmol/L ANION GAP AGAP 15 5 - 20 mmol/L GLUCOSE 321 (H) 65 - 99 mg/dL BUN 18 8 - 25 mg/dL CREATININE 0.95 0.70 - 1.30 mg/dL BUN/CREAT 19 CALCIUM 9.0 8.5 - 10.5 mg/dL TOTAL PROTEIN 6.7 6.3 - 8.2 g/dL Albumin 4.6 3.3 - 4.8 g/dL GLOBULIN 2.1 1.3 - 4.9 g/dL A/G 2.2 1.0 - 2.4 TBIL 0.6 0.1 - 1.5 mg/dL ALK PHOS 91 35 - 115 U/L AST 20 10 - 45 U/L ALT 26 10 - 65 U/L EGFR >60 >60 mL/min/1.73m2 Lipase [[id number]] Collected: 06/26/181829 Order Status: Completed Specimen: Blood Updated: 06/26/181903 LIPASE 45 12 - 53 U/L Protime-INR [[id number]] Collected: 06/26/181829 Order Status: Completed Specimen: Blood Updated: 06/26/181901 INR 1.0 CBC w Auto Diff [[id number]] (Abnormal) Collected: 06/26/181829 Order Status: Completed Specimen: Blood Updated: 06/26/181840 WBC 6.13 3.80 - 11.00 K/uL RBC 4.73 4.20 - 5.70 M/uL HGB 15.1 13.2 - 17.0 g/dL HCT 44.0 39.0 - 50.0 % MCV 93.0 80.0 - 100.0 fl MCH 32.0 27.0 - 34.0 pg MCHC 34.4 32.0 - 35.5 g/dL RDW SD 43.8 37 - 53 fl PLT 117 (L) 150 - 400 K/uL MPV 10.6 fl DIFF TYPE AUTOMATED NEUTROPHILS 74.45 % LYMPHOCYTES 15.61 % MONOCYTES 8.44 % EOSINOPHILS 0.76 % BASOPHILS 0.74 % NEUTROPHILS ABS 4.56 1.90 - 7.40 K/uL LYMPHOCYTES ABS 0.96 (L) 1.00 - 3.90 K/uL MONOCYTES ABS 0.52 0.00 - 0.80 K/uL EOSINOPHILS ABS 0.05 0.00 - 0.50 K/uL BASOPHILS ABS 0.05 0.00 - 0.10 K/uL Radiology and EKG Evaluation Imaging Results CT Abdomen & Pelvis with contrast (Final result) Result time 06/26/18 20:12:39 Final result by Kyle Cruz MD (06/26/18 20:12:39) Impression: *Mild hepatomegaly. Status post cholecystectomy. *Left adrenal myelolipoma. *Colonic diverticulosis without acute diverticulitis. *Advanced lumbar spondylosis and lumbar spine fusion as detailed above. The S1 screws are relatively peripherally placed, appears to extend to the sacroiliac joints and through the anterior cortex. *Remote T10 compression fracture, status post vertebroplasty. *Additional incidental findings as detailed above. Signed by: Kyle Cruz Sign Date/Time: 06/26/2018 8:09 PM Narrative: CT ABDOMEN AND PELVIS WITH CONTRAST CLINICAL INFORMATION: Abdominal pain. COMPARISON: None PROCEDURE: Axial images through the abdomen and pelvis after the administration of 100 ml omnipaque 350 intravenous contrast. Multiplanar reconstructions. At least one of the following CT dose optimization techniques were used: Automated exposure control; Adjustment of mA and/or kV according to patient size; Use of iterative reconstruction technique. Limited assessment of pelvis secondary to artifacts from hip arthroplasty hardware. FINDINGS: LUNG BASES: Normal cardiac size. Mild coronary artery atherosclerosis pitted enlarged pulmonary trunk measuring 3 cm. Elevated right dome of diaphragm with right basilar subsegmental atelectasis or scarring. No pleural effusion or pneumothorax. ABDOMEN Liver and Biliary: Enlarged liver measuring approximately 21 cm in craniocaudal length. A small hypodense lesion in segment 8 measuring 5 mm, image 41/series 3, probable cyst or biliary hamartoma. A small hypodense lesion in segment 4 adjacent gallbladder fossa measuring approximately 1.5 cm, image 51/series 3, incompletely characterized, possible focal fatty infiltration. Status post cholecystectomy. Pancreas, Spleen and Adrenals: Normal spleen. Moderate diffuse pancreatic atrophy with fatty infiltration. Normal right adrenal. Left adrenal mass with macroscopic fat measuring 2.5 cm, probable myelolipoma. Kidneys: Mild bilateral perinephric stranding, nonspecific. An exophytic hypodense lesion arising from the lateral cortex interpolar right kidney measuring 2.4 cm, incompletely characterized, probable cyst. Additional small hypodense lesions in both kidneys, probable cyst. Mild bilateral perinephric stranding. No renal or ureteric stone bilaterally. No hydroureteronephrosis. ABDOMEN AND PELVIS Bowel: Colonic diverticulosis without acute diverticulitis. No intestinal obstruction. Vessels: Mild aorto bi iliac atherosclerosis including mild atherosclerosis of major branch vessels. Small accessory left renal artery. No aortic aneurysm. Lymph Nodes: No adenopathy. Peritoneum and Retroperitoneum: No ascites or free air. No significant retroperitoneal abnormality. PELVIS Genitourinary: Limited assessment of distal ureters and urinary bladder secondary to streak artifacts from hip arthroplasty hardware. BODY WALL Soft Tissues: Postsurgical changes in ventral abdominal wall. Postsurgical changes in posterior paraspinal soft tissues. Severe atrophy with fatty infiltration of posterior paraspinal muscles and psoas major muscles bilaterally. Bones: Severe osteopenia. Status post L4 through S1 spinal fusion. No hardware loosening or hardware fracture. Partial bony bridging across intervertebral disc spaces from L3-L4 through L5-S1. The S1 screws are relatively peripherally placed, appears to extend to the sacroiliac joints and through the anterior cortex. Mild lumbar dextroscoliosis. Grade 1 (3 mm) retrolisthesis of L1 on L2. Advanced degenerative disc disease at L1-L2 with vacuum disc and endplate sclerosis. Advanced degenerative disc disease at T11-T12 and T12-L1. Remote T10 compression fracture, status post vertebroplasty. Multiple remote healed bilateral rib fractures. Remote/subacute nonunited left 9th rib fracture. Diagnosis & Disposition ED Diagnoses Final diagnoses Epigastric pain History of gastric ulcer Disposition: ED Disposition ED Disposition Condition Comment Orders Discharge Good Follow-up Information Follow up With Specialties Details Why Contact Info Aggie Dunn NP Nurse Practitioner Call tomorrow and arrange for follow up. [address] [facility] [address] [facility] Emergency Department Emergency Medicine If symptoms worsen as discussed [address] [phone] Discharge Medications: Discharge Medication List as of 06/26/2018 9:18 PM START taking these medications Details omeprazole (PRILOSEC) 20 MG capsule Take 2 capsules by mouth daily for 28 days., Starting M on 06/26/2018, Until Tue07/24/2018, Print sucralfate (CARAFATE) 1 g tablet Take 1 tablet by mouth 4 (four) times daily for 14 days., Starting Tue06/26/2018, Until Tue07/10/2018, Print Tc Nolan [facility] 06/26/184 Bryan Davidson DO 06/27/18241 vans, Fredy Roman PA-C - 06/26/2018 6:43 PM PST ED Provider Notes by Fredy Mccall PA-C at 06/26/181842 Author: Fredy Mccall PA-C Service: Emergency Department Author Type: Physician Assist ant Filed: 06/26/181924 Date of Service: 06/26/181842 Status: Attested Distribution Sales Manager: Fredy Mccall PA-C (Physician Dental Office Assistant) Cosigner: Bryan Davidson DO at 242 Attestation signed by Bryan Davidson DO at 06/27/18242 I have reviewed the note and supervised the mid-level provider. Procedures Lele Mustafa presents to the Emergency Department triage with a chief complaint of GI Bleeding (started today) . Patient also complains of abdominal. Patient denies use of blood thinners. Prior to arriv al patient has been seen approximately 2 weeks ago for abdominal. On a focused exam patient exhibit s TTP to epigastric region. I have discussed an initial plan of labs and imaging. Patient will be transported to appropriate department room. Fredy Mccall PA-C 06/26/181924 Bryan Davidson DO 06/27/18242 onversion Transact carson, Provider Unknown - 06/26/2018 6:29 PM PSTFormatting of this note might be different fr om the original. ED Notes by Tess Mortensen RN at 06/26/181828 Author: Tess Mortensen RN Service: (none) Author Type: Registered Nurse Filed: 06/26/181828 Date of Service: 06/26/181828 Status: Signed Distribution Sales Manager: Tess Mortensen RN (Registered Nurse) Pt educated on intake plan of care and process. Pt c/o bright red blood after bowel moveme nt today. Pt updated on plan of care, call light within reach. Tess Mortensen RN 06/26/181828 docume nted in this encounter Plan of Treatment Not on filedocumented as of this encounter Procedures + +--------+ + + + | Procedure Name | Priori | Date/Time | Associated Diagnosis | Comments | | | ty | | | | + +--------+ + + + | CT ABDOMEN PELVIS W | Routin | 06/26/2018 | | Results for this | | CONTRAST | e | 7:49 PM | | procedure are in the | | | | PST | | results section. | + +--------+ + + + | EXTERNAL LAB: CBC | Routin | 06/26/2018 | | Results for this | | | e | 6:30 PM | | procedure are in the | | | | PST | | results section. | + +--------+ + + + | PROTIME INR | Routin | 06/26/2018 | | Results for this | | | e | 6:30 PM | | procedure are in the | | | | PST | | results section. | + +--------+ + + + | LIPASE | Routin | 06/26/2018 | | Results for this | | | e | 6:30 PM | | procedure are in the | | | | PST | | results section. | + +--------+ + + + | COMPREHENSIVE | Routin | 06/26/2018 | | Results for this | | METABOLIC PANEL | e | 6:30 PM | | procedure are in the | | | | PST | | results section. | + +--------+ + + + documented in this encounter Results CT Abdomen Pelvis w Contrast (06/26/2018 7:49 PM PST) + + | Specimen | + + | | + + + + + | Impressions | Performed At | + + + | *Mild hepatomegaly. Status post cholecystectomy. *Left adrenal | | | myelolipoma. *Colonic diverticulosis without acute diverticulitis. | | | *Advanced lumbar spondylosis and lumbar spine fusion as detailed | | | above. The S1 screws are relatively peripherally placed, appears to | | | extend to the sacroiliac joints and through the anterior cortex. | | | *Remote T10 compression fracture, status post vertebroplasty. | | | *Additional incidental findings as detailed above. Signed by: Nancy, | | | Kyle Sign Date/Time: 06/26/2018 8:09 PM | | + + + + + + | Narrative | Performed At | + + + | CT ABDOMEN AND PELVIS WITH CONTRAST CLINICAL INFORMATION: | | | Abdominal pain. COMPARISON: None PROCEDURE: Axial images through | | | the abdomen and pelvis after the administration of 100 ml omnipaque | | | 350 intravenous contrast. Multiplanar reconstructions. At least one | | | of the following CT dose optimization techniques were used: Automated | | | exposure control; Adjustment of mA and/or kV according to patient | | | size; Use of iterative reconstruction technique. Limited assessment | | | of pelvis secondary to artifacts from hip arthroplasty hardware. | | | FINDINGS: LUNG BASES: Normal cardiac size. Mild coronary artery | | | atherosclerosis pitted enlarged pulmonary trunk measuring 3 cm. | | | Elevated right dome of diaphragm with right basilar subsegmental | | | atelectasis or scarring. No pleural effusion or pneumothorax. | | | ABDOMEN Liver and Biliary: Enlarged liver measuring approximately 21 | | | cm in craniocaudal length. A small hypodense lesion in segment 8 | | | measuring 5 mm, image 41/series 3, probable cyst or biliary | | | hamartoma. A small hypodense lesion in segment 4 adjacent | | | gallbladder fossa measuring approximately 1.5 cm, image 51/series 3, | | | incompletely characterized, possible focal fatty infiltration. | | | Status post cholecystectomy. Pancreas, Spleen and Adrenals: Normal | | | spleen. Moderate diffuse pancreatic atrophy with fatty | | | infiltration. Normal right adrenal. Left adrenal mass with | | | macroscopic fat measuring 2.5 cm, probable myelolipoma. Kidneys: | | | Mild bilateral perinephric stranding, nonspecific. An exophytic | | | hypodense lesion arising from the lateral cortex interpolar right | | | kidney measuring 2.4 cm, incompletely characterized, probable cyst. | | | Additional small hypodense lesions in both kidneys, probable cyst. | | | Mild bilateral perinephric stranding. No renal or ureteric stone | | | bilaterally. No hydroureteronephrosis. ABDOMEN AND PELVIS Bowel: | | | Colonic diverticulosis without acute diverticulitis. No intestinal | | | obstruction. Vessels: Mild aorto bi iliac atherosclerosis including | | | mild atherosclerosis of major branch vessels. Small accessory left | | | renal artery. No aortic aneurysm. Lymph Nodes: No adenopathy. | | | Peritoneum and Retroperitoneum: No ascites or free air. No significant | | | retroperitoneal abnormality. PELVIS Genitourinary: Limited | | | assessment of distal ureters and urinary bladder secondary to streak | | | artifacts from hip arthroplasty hardware. BODY WALL Soft Tissues: | | | Postsurgical changes in ventral abdominal wall. Postsurgical changes | | | in posterior paraspinal soft tissues. Severe atrophy with fatty | | | infiltration of posterior paraspinal muscles and psoas major muscles | | | bilaterally. Bones: Severe osteopenia. Status post L4 through S1 | | | spinal fusion. No hardware loosening or hardware fracture. | | | Partial bony bridging across intervertebral disc spaces from L3-L4 | | | through L5-S1. The S1 screws are relatively peripherally placed, | | | appears to extend to the sacroiliac joints and through the anterior | | | cortex. Mild lumbar dextroscoliosis. Grade 1 (3 mm) retrolisthesis | | | of L1 on L2. Advanced degenerative disc disease at L1-L2 with | | | vacuum disc and endplate sclerosis. Advanced degenerative disc | | | disease at T11-T12 and T12-L1. Remote T10 compression fracture, | | | status post vertebroplasty. Multiple remote healed bilateral rib | | | fractures. Remote/subacute nonunited left 9th rib fracture. | | + + + + + | Procedure Note | + + | Arnaldo, Rad Conversion - 12/05/2018 5:[address] ABDOMEN AND PELVIS WITH CONTRAST | | CLINICAL INFORMATION: | | Abdominal pain. | | COMPARISON: | | None | | PROCEDURE: | | Axial images through the abdomen and pelvis after the administration of | | 100 ml omnipaque 350 intravenous contrast. Multiplanar reconstructions. | | At least one of the following CT dose optimization techniques were | | used: Automated exposure control; Adjustment of mA and/or kV according | | to patient size; Use of iterative reconstruction technique. | | Limited assessment of pelvis secondary to artifacts from hip | | arthroplasty hardware. | | FINDINGS: | | LUNG BASES: Normal cardiac size. Mild coronary artery atherosclerosis | | pitted enlarged pulmonary trunk measuring 3 cm. Elevated right dome of | | diaphragm with right basilar subsegmental atelectasis or scarring. No | | pleural effusion or pneumothorax. | | ABDOMEN | | Liver and Biliary: Enlarged liver measuring approximately 21 cm in | | craniocaudal length. A small hypodense lesion in segment 8 measuring 5 | | mm, image 41/series 3, probable cyst or biliary hamartoma. A small | | hypodense lesion in segment 4 adjacent gallbladder fossa measuring | | approximately 1.5 cm, image 51/series 3, incompletely characterized, | | possible focal fatty infiltration. Status post cholecystectomy. | | Pancreas, Spleen and Adrenals: Normal spleen. Moderate diffuse | | pancreatic atrophy with fatty infiltration. Normal right adrenal. | | Left adrenal mass with macroscopic fat measuring 2.5 cm, probable | | myelolipoma. | | Kidneys: Mild bilateral perinephric stranding, nonspecific. An | | exophytic hypodense lesion arising from the lateral cortex interpolar | | right kidney measuring 2.4 cm, incompletely characterized, probable | | cyst. Additional small hypodense lesions in both kidneys, probable | | cyst. Mild bilateral perinephric stranding. No renal or ureteric | | stone bilaterally. No hydroureteronephrosis. | | ABDOMEN AND PELVIS | | Bowel: Colonic diverticulosis without acute diverticulitis. No | | intestinal obstruction. | | Vessels: Mild aorto bi iliac atherosclerosis including mild | | atherosclerosis of major branch vessels. Small accessory left renal | | artery. No aortic aneurysm. | | Lymph Nodes: No adenopathy. | | Peritoneum and Retroperitoneum: No ascites or free air. No significant | | retroperitoneal abnormality. | | PELVIS | | Genitourinary: Limited assessment of distal ureters and urinary bladder | | secondary to streak artifacts from hip arthroplasty hardware. | | BODY WALL | | Soft Tissues: Postsurgical changes in ventral abdominal wall. | | Postsurgical changes in posterior paraspinal soft tissues. Severe | | atrophy with fatty infiltration of posterior paraspinal muscles and | | psoas major muscles bilaterally. | | Bones: Severe osteopenia. Status post L4 through S1 spinal fusion. No | | hardware loosening or hardware fracture. Partial bony bridging across | | intervertebral disc spaces from L3-L4 through L5-S1. The S1 screws are | | relatively peripherally placed, appears to extend to the sacroiliac | | joints and through the anterior cortex. Mild lumbar dextroscoliosis. | | Grade 1 (3 mm) retrolisthesis of L1 on L2. Advanced degenerative disc | | disease at L1-L2 with vacuum disc and endplate sclerosis. Advanced | | degenerative disc disease at T11-T12 and T12-L1. Remote T10 | | compression fracture, status post vertebroplasty. | | Multiple remote healed bilateral rib fractures. Remote/subacute | | nonunited left 9th rib fracture. | | IMPRESSION: | | *Mild hepatomegaly. Status post cholecystectomy. | | *Left adrenal myelolipoma. | | *Colonic diverticulosis without acute diverticulitis. | | *Advanced lumbar spondylosis and lumbar spine fusion as detailed above. | | The S1 screws are relatively peripherally placed, appears to extend to | | the sacroiliac joints and through the anterior cortex. | | *Remote T10 compression fracture, status post vertebroplasty. | | *Additional incidental findings as detailed above. | | Signed by: Kyle Cruz | | Sign Date/Time: 06/26/2018 8:09 PM | + + Protime INR (06/26/2018 6:30 PM PST) + + + + + + | [...] | | | | | performed at [facility];[address] | | | | | | [address];[place], [place] | | | | | | [address] | | | | + + + [...] + +---------+ + + External Lab: CBC (06/26/2018 6:30 PM PST) + + + + + + | Component | Value | Ref Range | Performed | Pathologist | | | | | At | Signature | + + + + + + | WBC | 6.13 | 3.80 - 11.00 | EXTERNAL | | | | | K/uL | LAB | | + + + + + + | Non- | 4.73 | 4.20 - 5.70 | EXTERNAL | | | Red Blood | | M/uL | LAB | | | Cells | | | | | | Counted | | | | | + + + + + + | Hemoglobin | 15.1 | 13.2 - 17.0 | EXTERNAL | | | | | g/dL | LAB | | + + + + + + | Hematocrit, | 44.0 | 39.0 - 50.0 % | EXTERNAL | | | POC | | | LAB | | + + + + + + | MCV | 93.0 | 80.0 - 100.0 fl | EXTERNAL | | | | | | LAB | | + + + + + + | MCH | 32.0 | 27.0 - 34.0 pg | EXTERNAL | | | | | | LAB | | + + + + + + | MCHC | 34.4 | 32.0 - 35.5 | EXTERNAL | | | | | g/dL | LAB | | + + + + + + | RDW-CV | 43.8 | 37 - 53 fl | EXTERNAL | | | | | | LAB | | + + + + + + | Platelet | 117 (L) | 150 - 400 K/uL | EXTERNAL | | | Count | | | LAB | | | Plasma | | | | | + + + + + + | MPV | 10.6 | fl | EXTERNAL | | | | | | LAB | | + + + + + + | Differentia | AUTOMATED | | EXTERNAL | | | l Type | | | LAB | | + + + + + + | % Segmented | 74.45 | % | EXTERNAL | | | | | | LAB | | | Neutrophils | | | | | + + + + + + | % | 15.61 | % | EXTERNAL | | | Lymphocytes | | | LAB | | + + + + + + | % Monocytes | 8.44 | % | EXTERNAL | | | | | | LAB | | + + + + + + | % | 0.76 | % | EXTERNAL | | | Eosinophils | | | LAB | | + + + + + + | % Basophils | 0.74 | % | EXTERNAL | | | | | | LAB | | + + + + + + | Absolute | 4.56 | 1.90 - 7.40 | EXTERNAL | | | Segmented | | K/uL | LAB | | | Neutrophils | | | | | + + + + + + | Absolute | 0.96 (L) | 1.00 - 3.90 | EXTERNAL | | | Lymphocytes | | K/uL | LAB | | + + + + + + | Absolute | 0.52 | 0.00 - 0.80 | EXTERNAL | | | Monocytes | | K/uL | LAB | | + + + + + + | Absolute | 0.05 | 0.00 - 0.50 | EXTERNAL | | | Eosinophils | | K/uL | LAB | | + + + + + + | Absolute | 0.05Comment: Testing | 0.00 - 0.10 | EXTERNAL | | | Basophils | performed at [facility];[address] | K[address] | LAB | | | | [address];[place] | | | | | | [id number] | | | | + + + + + + + + | Specimen | + + | Blood specimen | | (specimen) | + + + +---------+ + + | Performing | Address | City/State/Zipcode | Phone Number | | Organization | | | | + +---------+ + + | EXTERNAL LAB | | | | + +---------+ + + Lipase (06/26/2018 6:30 PM PST) + + + + + + | Component | Value | Ref Range | Performed | Pathologist | | | | | At | Signature | + + + + + + | Lipase | 45Comment: NOTE NEW | 12 - 53 U/L | EXTERNAL | | | | REFERENCE RANGETesting | | LAB | | | | performed at [facility] | | | | | | [facility];[place], [place] | | | | | | [address] | | | | + + + [...] + +---------+ + + Comprehensive Metabolic Panel (06/26/2018 6:30 PM PST) + + + + + + | Component | Value | Ref Range | Performed | Pathologist | | | | | At | Signature | + + + + + + | Na | 141 | 135 - 145 | EXTERNAL | | | | | mmol/L | LAB | | + + + + + + | K | 4.2 | 3.5 - 4.9 | EXTERNAL | | | | | mmol/L | LAB | | + + + + + + | Cl | 104 | 99 - 109 mmol/L | EXTERNAL | | | | | | LAB | | + + + + + + | CO2 | 26 | 23 - 32 mmol/L | EXTERNAL | | | | | | LAB | | + + + + + + | Anion Gap | 15 | 5 - 20 mmol/L | EXTERNAL | | | | | | LAB | | + + + + + + | Glucose, | 321 (H) | 65 - 99 mg/dL | EXTERNAL | | | Fasting | | | LAB | | + + + + + + | BUN | 18 | 8 - 25 mg/dL | EXTERNAL | | | | | | LAB | | + + + + + + | Creatinine | 0.95 | 0.70 - 1.30 | EXTERNAL | | | | | mg/dL | LAB | | + + + + + + | BUN/Creatin | 19 | | EXTERNAL | | | ine Ratio | | | LAB | | + + + + + + | Calcium | 9.0 | 8.5 - 10.5 | EXTERNAL | | | | | mg/dL | LAB | | + + + + + + | Protein, | 6.7 | 6.3 - 8.2 g/dL | EXTERNAL | | | Total | | | LAB | | + + + + + + | Albumin | 4.6 | 3.3 - 4.8 g/dL | EXTERNAL | | | | | | LAB | | + + + + + + | Globulin | 2.1 | 1.3 - 4.9 g/dL | EXTERNAL | | | | | | LAB | | + + + + + + | A/G Ratio | 2.2 | 1.0 - 2.4 | EXTERNAL | | | | | | LAB | | + + + + + + | Bilirubin | 0.6 | 0.1 - 1.5 mg/dL | EXTERNAL | | | Total | | | LAB | | + + + + + + | ALP, | 91 | 35 - 115 U/L | EXTERNAL | | | External | | | LAB | | + + + + + + | AST | 20 | 10 - 45 U/L | EXTERNAL | | | | | | LAB | | + + + + + + | ALT | 26 | 10 - 65 U/L | EXTERNAL [...] | | | | | performed at [facility];[address] | | | | | | [facility];[place], [place] | | | | | | [address] | | | | + + + [...] + | Diagnosis | + + | Epigastric pain Abdominal pain, epigastric | + + | History of gastric ulcer Personal history of other diseases of digestive system | + + documented in this encounter
--- OUTSIDE RECORDS SUMMARY | ~2020-02-04 | XMS | Encounter Summary ---
Demographics + + + | Address | [address] | | | [place] [address] | + + + | Home Phone [...] + + + | Author | [facility] | | | and [place] | + + + | Organization | [facility] | | | [...] [address] [place] | | | | | [address] | | + + + + + | Leslie Lentz | ECON | Unknown | | + + + + + Care Team Providers + +------+ + | Care Social Work Assistant Name | Role | Phone | + [...] | [address] | [place] [address] | | | | | [place] | [phone] | | | | | [address] | | | | | | [phone] | | | +--------+ + + + [...] this encounter Miscellaneous Notes Telephone Encounter - Rosa Shepard - 09/16/2016 10:03 AM PDTPatient called requesting to schedule surgery. Randee love in this encounter Plan of Treatment Not on filedocumented as of this encounter Visit Diagnoses Not on filedocumented in this encounter"
--- OUTSIDE RECORDS SUMMARY | ~2020-02-04 | XMS | Encounter Summary ---
Demographics + + + | Address | [address] | | | [place] [address] | + + + | Home Phone | | + + + | Preferred Language | Unknown | + + + | Marital Status | | + + + | Episcopal Affiliation | [id number] | + + + | Race | White | + + + | Ethnic Group | Not or | + + + Author + + + | Author | [facility] | | | and [place] | + + + | Organization | [facility] | | | and [...] [place] | | | | | [address] | | + + + + + | Leslie Lentz | ECON | Unknown | | + + + + + Care Team Providers + +------+ + | Care Transportation Mechanic Name | Role | Phone | + +------+ + | Aggie Dunn NP | PCP | | + +------+ + Encounter Details +--------+ + + + + | Date | Type | Department | Care Team | Description | +--------+ + + + + | 05/22/ | Hospital | [facility] | Asif Drew, | Unstable angina | | 2019 - | Encounter | [facility] | MD Mahesh MCNEIL | ([facility]); Hypertension, | | | | CLINICAL DECISION | [place] [address] | unspecified type; | | 05/23/ | | NAOMY MCNEIL | [phone] | Type 2 diabetes | | 2019 | | [place], [place] | | mellitus with | | | | [address] | | hyperglycemia, with | | | | [phone] | | long-term current | | | | | | use of insulin | | | | | | ([facility]); | | | | | | Hyperlipidemia, | | | | | | unspecified | | | | | | hyperlipidemia type | +--------+ + + + + Social [...] + + + | Blood Pressure | 120/76 | 05/23/2018 1:24 PM | | | | | PST | | + + + + + | Pulse | 83 | 05/23/2018 1:24 PM | | | | | PST | | + + + + + | Temperature | 36.7 C (98 F) | 05/23/2018 1:24 PM | | | | | PST | | + + + + + | Respiratory Rate | 18 | 05/23/2018 1:24 PM | | | | | PST | | + + + + + | Oxygen Saturation | - | - | | + + + + + | Inhaled Oxygen | - | - | | | Concentration | | | | + + + + + | Weight | 125.2 kg (276 lb) | 05/23/2018 1:24 PM | | | | | PST | | + + + + + | Height | 193 cm (6' 3.98") | 05/23/2018 1:24 PM | | | | | PST | | + + + + + | Body Mass Index | 33.61 | 05/23/2018 1:24 PM | | | [...] documented as of this encounter Discharge Summaries Mila Scruggs DO - 05/23/2018 2:23 PM PSTFormatting of this note might be different fr om the original. Discharge Summaries by Mila Scruggs DO at 05/23/18 1423 Author: Mila Scruggs DO Service: Hospitalist Author Type: Physician Filed: 05/23/18 1509 Date of Service: 05/23/18 1423 Status: Signed Cardiovascular Specialist: Mila Scruggs DO (Physician) Patient: Lele Mustafa : 1960 Date of Admission: 05/22/2018 Date of Discharge: 05/23/2018 Treatment Team: Admitting Provider: Asif Drew MD Discharging Provider: Mila Scruggs DO Discharge Diagnoses: Principal Problem: Atypical chest pain Active Problems: Hypertensive urgency Poorly controlled diabetes mellitus (HCC) Hyperglycemia without ketosis Resolved Problems: * No resolved hospital problems. * Procedures Performed: Chief Complaint: Chest Pain (2 hours) Hospital Course: Lele Mustafa is a 58 y.o. male who was admitted on 05/22/2018 with epigastric pain. The patient is a 58 y.o. male with significant past medical history of chronic pain, poorly controlled insulin-dependent diabetes mellitus, hypertension, sleep apnea on CPAP, BMI elev ation of 33, and epigastric pain. He presented to [facility] from [facility] with intermittent epig astric discomfort for 3-4 weeks. Pain vaguely related to meals, not associated with exertion . He has never taken PPI or H2 blockers, pain partially improved with OTC Pepto bismol. Pain became acutely worse with left sided lateral rib pain, and his friend recommended going to the ED to be evaluated for heart attack. He was evaluated at [facility]/free standing. Initial tw elve-lead EKG showed normal sinus rhythm without acute ST or T changes/Essentially normal EK G. Troponins were negative x3. Patient responded well to single dose of sublingual nitroglyc benjie/aspirin with complete resolution of chest pain, so he was transferred to [facility] for stres s test. Stress test showed global hypokinesis without evidence of reversible ischemia. Will continu e patient on aspirin, statin, and ARB. Will dc with rx for SL nitroglycerin. Diabetes is poorly controlled, patient has been struggling with this and is compliant with insulin. He takes lantus 80 units QAM and 70 units QPM and mealtime 10-20 units TID. He has a follow up appointment with Endocrinology SEASONER HAND coming up for help with titration. He has year ly eye exams, he is on an ARB. Suspect patient has gastroesophageal reflux disease/peptic ulcer disease/gastritis/esophagi tis. Will discharge home on empiric therapy for treatment of GI source of discomfort with PP I BID and prn Tums and Maalox. If not improved in 6 weeks, patient advised to follow up with PCP for GI referral. Discharge Exam and Data: Vital Signs: BP 120/76 (BP Location: Left upper arm) | Pulse 83 | Temp 98 F (36.7 C) (Oral) | Res p 18 | Ht 1.93 m (6' 3.98") | Wt 125.2 kg (276 lb) | SpO2 93% | BMI 33.61 kg/m Constitutional: He is oriented to person, place, and time. He appears well-developed. No di stress. HENT: Head: Normocephalic. Mouth/Throat: Oropharynx is clear and moist. No oropharyngeal exudate. Eyes: Pupils are equal, round, and reactive to light. No scleral icterus. Cardiovascular: Normal rate. Regular rhythm. Pulmonary/Chest: Effort normal. No stridor. No respiratory distress. He has no wheezes. He has no rales. Abdomina/Gl: Soft. He exhibits no distension. Some epigastric discomfort provoked with palpation of the xiphoid process and underneath it . Left-sided chest discomfort was not reproducible. Patient at rest currently is chest pain- free. Musculoskeletal: He exhibits no edema. Neurological: He is alert and oriented to person, place, and time. He displays normal refle xes. No cranial nerve deficit. Coordination normal. Skin: Skin is warm. Capillary refill takes less than 2 seconds. He is not diaphoretic. No p allor. Recent Labs Recent Labs Lab 05/23/18 0445 WBC 6.90 HGB 15.4 HCT 44.5 PLT 129* Recent Labs Lab 05/23/18 0445 NA 142 K 3.4* CL 103 CO2 31 BUN 24 CREATININE 0.8 Recent Labs Lab 05/22/18 1616 INR 1.0 Recent Radiology Results X-ray Chest 2 View Frontal & Lateral (must Have Ekg Done First) Result Date: 05/22/2018 1. There is platelike atelectasis of the left lower lobe. Signed by: Ventura Chang ate/Time: 05/22/2018 4:50 PM Nm Myocardial Perfusion Spect (stress And Rest) Result Date: 05/23/2018 1. I see no evidence of ischemia or definite evidence of infarct. 2. Mild global hypokinesi s. 3. LVEF 49% stress, 43% rest. Intermediate risk stratification. Signed by: Ibrahima Barth Date/Time: 05/23/2018 2:16 PM No discharge procedures on file. Outstanding Issues: Uncontrolled diabetes. Discharge Information: Follow up: Aggie Dunn NP [address] [facility] [address] Medication List START taking these medications aluminum-magnesium hydroxide-simethicone 200-200-20 MG/5ML Susp QTY: 1680 mL Refills: 0 Commonly known as: MAALOX Take 30 mLs by mouth every 6 (six) hours as needed. calcium carbonate 500 MG chewable tablet Refills: 0 Commonly known as: TUMS Take 2 tablets by mouth every 6 (six) hours as needed. nitroGLYCERIN 0.4 MG SL tablet QTY: 90 tablet Refills: 12 Commonly known as: NITROSTAT Place 1 tablet under the tongue every 5 (five) minutes as needed for Chest pain. pantoprazole 40 MG tablet QTY: 60 tablet Refills: 0 Commonly known as: PROTONIX Take 1 tablet by mouth 2 (two) times daily for 60 days. CONTINUE taking these medications acetaminophen 500 MG tablet Refills: 0 Commonly known as: TYLENOL aspirin EC 81 MG EC tablet Refills: 0 atorvastatin 40 MG tablet Refills: 0 Commonly known as: LIPITOR cyclobenzaprine 10 MG tablet Refills: 0 Commonly known as: FLEXERIL doxycycline 100 MG capsule QTY: 60 capsule Refills: 5 Commonly known as: MONODOX Take 1 capsule by mouth 2 (two) times daily. DULoxetine [address] capsule Refills: 0 Commonly known as: CYMBALTA gabapentin 300 MG capsule Refills: 0 Commonly known as: NEURONTIN glucagon 1 MG injection Refills: 0 HYDROcodone-acetaminophen 10-325 MG per tablet Refills: 0 Commonly known as: NORCO ibuprofen 600 MG tablet Refills: 0 Commonly known as: MOTRIN insulin lispro (human) 100 UNIT/ML injection Refills: 0 Commonly known as: HUMALOG irbesartan-hydrochlorothiazide 150-12.5 MG per tablet Refills: 0 Commonly known as: AVALIDE lactulose 10 GM/15ML solution Refills: 0 Commonly known as: CHRONULAC LEVEMIR 100 UNIT/ML injection Refills: 0 Generic drug: insulin detemir losartan-hydrochlorothiazide 50-12.5 MG per tablet Refills: 0 Commonly known as: HYZAAR MAGNESIUM PO Refills: 0 metFORMIN 1000 MG tablet Refills: 0 Commonly known as: GLUCOPHAGE methylPREDNISolone 4 MG dose pack QTY: 21 tablet Refills: 0 Take 6 pills on day one, 5 pills on day two, 4 pills on day three, 3 pills on day four, 2 p ills on day five, and 1 pill on day six. Total course six days. oxycodone 10 MG tablet Refills: 0 Potassium 99 MG Tabs Refills: 0 traMADol 50 MG tablet Refills: 0 Commonly known as: ULTRAM Vitamin D 2000 units tablet Refills: 0 You might also be taking other medications not listed above. If you have questions about an y of your other medications, talk to the person who prescribed them or your Primary Care Pro vider. STOP taking these medications LORazepam 1 MG tablet Commonly known as: ATIVAN Where to Get Your Medications You can get these medications from any pharmacy Bring a paper prescription for each of these medications nitroGLYCERIN 0.4 MG SL tablet pantoprazole 40 MG tablet Information about where to get these medications is not yet available Ask your nurse or doctor about these medications aluminum-magnesium hydroxide-simethicone 200-200-20 MG/5ML Susp calcium carbonate 500 MG chewable tablet Disposition: Home Condition: Fair Code Status: Full Code Discharge took 45 minutes, to include final examination, discussion of admission, and prepa ration of prescriptions, instructions for on-going care, follow-up and documentation of disc harge summary. Mila Scruggs 3:09 PM documented in this encounter Medications at Time [...] | | | | | | | -957= 3 | | | | | | | [id number]= 6 | | | | | | | [id number]= 9 | | | | | | | [id number]= 12 | | | | | | | -925= 15 | | | | | | [...] | | | | | | | ecftp587-366= 6 | | | | | | | qgugb053-173= 9 | | | | | | | [id number]= 12 | | | | | | | [id number]= 15 | | | | | | | -655= 18 | | | | | | [...] documented as of this encounter Progress Notes Conversion Transaction, Provider Unknown - 05/23/2018 4:33 PM PSTFormatting of this note m ight be different from the original. Progress Notes by Pepper Villarreal at 05/23/18 2439 Author: Pepper Villarreal Service: (none) Author Type: Liquor Merchant Filed: 05/23/18 8624 Date of Service: 05/23/18 1318 Status: Signed Cardiovascular Specialist: Pepper Villarreal (Liquor Merchant) The patient was discharged home with family. Patient was escorted in a wheelchair. After be ing provided discharge instructions, patient stated understanding of the information. The pa fransisco was provided the opportunity to ask questions and all of his questions were answered. The patients Vital Signs were stable at discharge. Patient was discharged home with stacie rao. Patient was provided with prescriptions to fill. Patient IV discontinued, patient tolera ivan well. onver bora Transaction, Provider Unknown - 05/23/2018 11:53 AM PST Progress Notes by Devi Rdz RD at 05/23/18 1152 Author: Devi Rdz RD Service: (none) Author Type: Registered Dietitian Filed: 05/23/18 4854 Date of Service: 05/23/18 115 Status: Signed Cardiovascular Specialist: Devi Rdz RD (Registered Dietitian) 05/23/18 5111 Subjective Timepoint Admit Pt c/o Nutrition consult received for "poorly controlled DM." Pt currently NPO for stress t est. Admitted for atypical chest pain. Reported by Patient Diet Experience Self-selected diet(s) followed He reports he tries to follow a DM diet at home. He reports at times he doesn't watch his CHO/sugars. 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 Fluid / Beverage Intake Oral Fluids Amount NPO Food Intake Amount of Food NPO. Reports he has not eaten anything within the past 3 days d/t not feelin g well. Pt should be advancing diet later today after stress test. Type of Food / Meals NPO Parenteral Nutrition Intake Rate/Solution NS running at 75 mL/hr. Micronutrient Intake Vitamin Intake D Food and Nutrition Knowledge Area(s) and Level of Knowledge Pt declined any DM diet education. He states he knows what h e can and cannot eat. Did accept the booklet "Choose your foods." Encouraged pt to request a n RD visit if he has any further questions. Pt states understanding. Nutrition-Focused Physical Findings Overall Appearance Pt appeared obese - consistent with BMI of 33.61. Body Language Pleasant to speak with. Anthropometrics Weight change Pt admitted at 125.2 kg, is 136% of his IBW, and has a BMI of 33.61. Noted to be 775 mL fluid negative. Biochemical data, medical tests, and procedures reviewed Biochemical data, medical tests, and procedures reviewed Hemoglobin A1c: 9.4 - elevated. Pt reports his last A1c was 11, so he has been improving. Reports he takes fast and slow actin g insulin as needed. Estimated Energy Needs Total Energy Estimated Needs 1566-7620 kcal/day Method for Estimating Needs 25-30 kcal/kg based on adjusted body wt 100.2 kg Estimated Protein Needs Total Protein Estimated Needs 120-150 g/day Method for Estimating Needs 1.2-1.5 g/kg based on adjusted body wt 100.2 kg Recommendations Recommended energy needs Once indicated and appropriate, ADAT to diabetic maintenance. Enco urage intake of protein-rich, nutrient-dense food choices as tolerated. Will continue to fol low. Nutritional Risk Nutritional risk Moderate Follow up date 05/28/[address] onver bora Guzmanaction, Provider Unknown - 05/23/2018 10:37 AM PST Case Management by DON Kruger at 05/23/18 1037 Author: DON Kruger Service: (none) Author Type: Salesperson Women'S Dresses Filed: 05/23/18 1039 Date of Service: 05/23/18 1037 Status: Addendum Cardiovascular Specialist: DON Kruger (Salesperson Women'S Dresses) Related Notes: Original Note by DON Kruger (Salesperson Women'S Dresses) filed at 05/23/18 1037 Pt is 58 years old and lives with his . Pt is independent with his mobility. Pt uses a CPAP machine at night. Pt denied any difficulty obtaining his medications and had no resourc e concerns at this time. CM will continue to follow as needed. 05/23/18 1035 Discharge Planning Evaluation Admitting Diagnosis Chest Pain Readmission No Living Arrangements Spouse/significant other Support Systems Spouse/significant other Type of Residence Private residence Bathrooms on 1st Floor 1-Full Independent with ADL's Yes Independent with Mobility Yes Home Care Services No Caregiver after Discharge Yes Caregiver Name Bina Mustafa Relationship to Patient spouse Phone number [phone] Mental Status Oriented Anticipated Discharge Plan Post Acute Care Needs None at this time Resources Financial concerns No Transportation issues No Patient/Family concerns No Prescription Plan Yes Anticipated Disposition Facility Type Home Medicare Important Message (DENYS) Not applicable Met with: Patient and discussed discharge planning, Pt is a 58 y.o., male Patient's PCP is: Aggie Dunn Patient's insurance: Medicare Coverage concerns: None Medication coverage/concerns: None Community resources utilized / needed: None Assistance in transportation: Not needed. Identification of any specific education / training: None Barriers to Discharge / Alternative housing needed: None Anticipated DCP: Home onver bora Transaction, Provider Unknown - 05/23/2018 6:40 AM PST Nurse Progress Note by Ava Bravo RN at 05/23/18639 Author: Ava Bravo RN Service: (none) Author Type: Registered Nurse Filed: 05/23/1829 Date of Service: 05/23/18639 Status: Signed Cardiovascular Specialist: Ava Bravo RN (Registered Nurse) End of shift audit complete. onver bora Transaction, Provider Unknown - 05/22/2018 10:36 PM PST Progress Notes by Devi Perez RPH at 05/22/182235 Author: Devi Perez RPH Service: Pharmacy Author Type: Pharmacist Filed: 05/22/182235 Date of Service: 05/22/182235 Status: Signed Cardiovascular Specialist: Devi Perez RPH (Pharmacist) Renal Dosing Monitoring: Lele Mustafa 58 y.o. male Pharmacy dosing for renal function per Dr. Asif Drew Serum creatinine: 1.04 mg/dL 05/22/181615 Estimated creatinine clearance: 109.2 mL/min Plan per protocol: No medications need adjustment at this time Pharmacy will continue to monitor changes in medication orders and renal function and will adjust accordingly. 05/22/2018 10:36 PM Pharmacist: Devi Perez docume nted in this encounter H&P Notes Asif Drew MD - 05/22/2018 8:12 PM PSTFormatting of this note might be different f rom the original. H&P by Asif Drew MD at 05/22/182011 Author: Asif Drew MD Service: Hospitalist Author Type: Physician Filed: 05/23/18 0125 Date of Service: 05/22/182011 Status: Signed Cardiovascular Specialist: Asif Drew MD (Physician) [facility] Service: Hospitalist Admission History & Physical Date of Admission: 05/22/2018 Reason for Admission: Chest pain rule out MD; needed further workup History Obtained From: Patient and ER provider CHIEF COMPLAINT: Lower substernal chest discomfort/epigastric discomfort; relieved by subl ingual nitroglycerin HISTORY OF PRESENT ILLNESS The patient is a 58 y.o. male with significant past medical history of chronic pain, poorly controlled insulin-dependent diabetes mellitus, hypertension, sleep apnea on CPAP, BMI elev ation of 33,. Patient presented to [facility] from [facility], with recurrent b outs of substernal/epigastric discomfort. Patient states that he has been experiencing postp randial epigastric/lower chest discomfort ongoing for close to 3-4 weeks now. He reports the pain very regularly reoccurs following meals/solid food but is not caused by intake of liqu ids. Patient has been struggling with this discomfort for a number of weeks. He tried variou s zvjw-zsv-tugrkjv medications including frequent use of Pepto-Bismol (only partial relief). He did not try antacids such as Prilosec or Pepcid/Zantac etc. He had no prior GI workup. P atient denies any melena or hematochezia. Denies any nausea or vomiting. He has been seen se veral times at [facility] emergency room for reevaluation but his symptoms continue. He w as not referred to GI by his PCP. Today patient's pain became much more severe. He also started to experience some left-sided chest pain with radiation to left upper extremity. This was a new development and character of pain which may patient concern that it might be originating from his "heart". He was walker luated at [facility]. Initial twelve-lead EKG showed normal sinus rhythm without ac alysha ST or T changes./ Essentially normal EKG. Troponins were negative. Patient responded wel l to single dose of sublingual nitroglycerin/aspirin with complete resolution of chest pain. Patient has poorly controlled diabetes mellitus with insulin dependence/insulin resistance. She was referred to our hospital service for further workup to exclude cardiac source of th e chest pain. 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 REVIEW OF SYSTEMS Review of Systems Constitutional: Positive for malaise/fatigue. Negative for chills, diaphoresis and fever. Patient states that over last 18 years he lost more than 120 pounds by gradual intenti onal calorie restriction effort. HENT: Negative for ear discharge, ear pain, hearing loss and tinnitus. Eyes: Negative for blurred vision, double vision, photophobia and pain. Cardiovascular: Positive for chest pain. Negative for palpitations, orthopnea, claudication , leg swelling and PND. Gastrointestinal: Positive for abdominal pain and nausea. Negative for blood in stool, cons tipation, heartburn (Possible symptoms of indigestion), melena and vomiting. Genitourinary: Negative for dysuria, frequency, hematuria and urgency. Musculoskeletal: Positive for back pain. Negative for joint pain, myalgias and neck pain. Skin: Negative for itching. Neurological: Positive for weakness. Negative for dizziness, tingling, tremors, sensory jeff nge, speech change, focal weakness, seizures, loss of consciousness and headaches. Psychiatric/Behavioral: Negative for depression, hallucinations, substance abuse and suicid al ideas. Past Medical History Diagnosis Date Chronic pain [...] (See Comments) and Swelling Joint swelling Joint pain Prior to Admission medications Medication Sig Start Date End Date Taking? Authorizing Provider acetaminophen (TYLENOL) 500 MG tablet Take 500-1,000 mg by mouth. Yes Historical Provider aspirin EC 81 MG EC tablet Take 81 mg by mouth. Yes Historical Provider atorvastatin (LIPITOR) 40 MG tablet Take 40 mg by mouth daily. 01/11/18 07/10/18 Yes Historic al Provider Cholecalciferol (VITAMIN D) 2000 units tablet Take 2,000 Units by mouth. Yes Historical P rovider cyclobenzaprine (FLEXERIL) 10 MG tablet Take 10 mg by mouth. 12/23/15 Yes Historical Provid er DULoxetine (CYMBALTA) [address] capsule Take 60 mg by mouth. 01/22/16 Yes Historical Provide r gabapentin (NEURONTIN) 300 MG capsule Take 300 mg by mouth. 01/22/16 Yes Historical Provide r HYDROcodone-acetaminophen (NORCO) 10-325 MG per tablet 01/23/16 Yes Historical Provider insulin detemir (LEVEMIR) 100 UNIT/ML injection Inject 80 Units into the skin. 12/25/15 Yes Historical Provider insulin lispro, human, (HUMALOG) 100 UNIT/ML injection Inject 3-18 Units into the skin. Y es Historical Provider irbesartan-hydrochlorothiazide (AVALIDE) 150-12.5 MG per tablet 12/27/15 Yes Historical Pro vider LORazepam (ATIVAN) 1 MG tablet 02/13/16 Yes Historical Provider losartan-hydrochlorothiazide (HYZAAR) 50-12.5 MG per tablet Take 1 tablet by mouth. Yes H istorical Provider MAGNESIUM PO Take 250 mg by mouth daily. Yes Historical Provider metFORMIN (GLUCOPHAGE) 1000 MG tablet Take 1,000 mg by mouth. 01/22/16 Yes Historical Provi alonso doxycycline (MONODOX) 100 MG capsule Take 1 capsule by mouth 2 (two) times daily. 02/09/18 Bryan Claudio, glucagon 1 MG injection Inject 1 mg into the muscle. Historical Provider ibuprofen (MOTRIN) 600 MG tablet 01/27/16 Historical Provider lactulose (CHRONULAC) 10 GM/15ML solution Take 20 g by mouth. 01/04/18 Historical Provider methylPREDNISolone 4 MG dose pack Take 6 pills on day one, 5 pills on day two, 4 pills on d ay three, 3 pills on day four, 2 pills on day five, and 1 pill on day six. Total course six days. Patient not taking: Reported on 01/23/2018 12/06/15 Evin Rodriguez MD oxycodone 10 MG tablet Take 10-15 mg by mouth. 01/12/18 Historical Provider Potassium 99 MG TABS Take 99 mg by mouth. Historical Provider traMADol (ULTRAM) 50 MG tablet 02/04/16 Historical Provider No family history on file. Social History Social History Marital status: Spouse name: N/A Number of children: N/A Years of education: N/A Occupational History Not on file. Social History Main Topics Smoking status: Former Smoker Quit date: 01/09/2003 Smokeless tobacco: Former User Alcohol use No Drug use: No Sexual activity: No Other Topics Concern Not on file Social History Narrative No narrative on file PHYSICAL EXAM Vital Signs: BP 123/82 (BP Location: Left upper arm) | Pulse 95 | Temp 98.1 F (36.7 C) (Oral) | R torrie 22 | Ht 1.93 m (6' 4") | Wt 125.2 kg (276 lb) | SpO2 94% | BMI 33.60 kg/m Physical Exam Constitutional: He is oriented to person, place, and time. He appears well-developed. No di stress. HENT: Head: Normocephalic. Mouth/Throat: Oropharynx is clear and moist. No oropharyngeal exudate. Eyes: Pupils are equal, round, and reactive to light. No scleral icterus. Cardiovascular: Normal rate. Murmur heard. Pulmonary/Chest: Effort normal. No stridor. No respiratory distress. He has no wheezes. He has no rales. Abdomina/Gl: Soft. He exhibits no distension. Some epigastric discomfort provoked with palpation of the xiphoid process and underneath it . Left-sided chest discomfort was not reproducible. Patient at rest currently is chest pain- free. Musculoskeletal: He exhibits no edema. Neurological: He is alert and oriented to person, place, and time. He displays normal refle xes. No cranial nerve deficit. Coordination normal. Skin: Skin is warm. Capillary refill takes less than 2 seconds. He is not diaphoretic. No p allor. DATA Admission on 05/22/2018 Component Date Value Ref Range Status WBC 05/22/2018 7.82 3.80 - 11.00 K/uL Final RBC 05/22/2018 5.61 4.20 - 5.70 M/uL Final HGB 05/22/2018 17.3* 13.2 - 17.0 g/dL Final HCT 05/22/2018 51.4* 39.0 - 50.0 % Final MCV 05/22/2018 91.6 80.0 - 100.0 fl Final MCH 05/22/2018 30.8 27.0 - 34.0 pg Final MCHC 05/22/2018 33.7 32.0 - 35.5 g/dL Final RDW SD 05/22/2018 43.7 37 - 53 fl Final PLT 05/22/2018 169 150 - 400 K/uL Final MPV 05/22/2018 12.8 fl Final DIFF TYPE 05/22/2018 AUTOMATED Final nRBC 05/22/2018 0.0 0 /100WBC Final NEUTROPHILS 05/22/2018 73.90 % Final LYMPHOCYTES 05/22/2018 16.10 % Final MONOCYTES 05/22/2018 8.40 % Final EOSINOPHILS 05/22/2018 0.40 % Final BASOPHILS 05/22/2018 0.40 % Final IMMATURE GRANULOCYTE 05/22/2018 0.80 % Final NEUTROPHILS ABS 05/22/2018 5.78 1.90 - 7.40 K/uL Final LYMPHOCYTES ABS 05/22/2018 1.26 1.00 - 3.90 K/uL Final MONOCYTES ABS 05/22/2018 0.66 0.00 - 0.80 K/uL Final EOSINOPHILS ABS 05/22/2018 0.03 0.00 - 0.50 K/uL Final BASOPHILS ABS 05/22/2018 0.03 0.00 - 0.10 K/uL Final IMMATURE GRAN ABS 05/22/2018 0.06 K/uL Final MORPHOLOGY 05/22/2018 RBC AND PLT MORPHOLOGY APPEAR NORMAL Final SODIUM 05/22/2018 137 135 - 145 mmol/L Final POTASSIUM 05/22/2018 4.1 3.5 - 4.9 mmol/L Final CHLORIDE 05/22/2018 96* 99 - 109 mmol/L Final CO2 05/22/2018 28 23 - 32 mmol/L Final ANION GAP AGAP 05/22/2018 18 5 - 20 mmol/L Final GLUCOSE 05/22/2018 321* 65 - 99 mg/dL Final BUN 05/22/2018 23 8 - 25 mg/dL Final CREATININE 05/22/2018 1.04 0.70 - 1.30 mg/dL Final BUN/CREAT 05/22/2018 22 Final CALCIUM 05/22/2018 9.7 8.5 - 10.5 mg/dL Final TOTAL PROTEIN 05/22/2018 8.1 6.3 - 8.2 g/dL Final Albumin 05/22/2018 4.6 3.3 - 4.8 g/dL Final GLOBULIN 05/22/2018 3.5 1.3 - 4.9 g/dL Final A/G 05/22/2018 1.3 1.0 - 2.4 Final TBIL 05/22/2018 1.4 0.1 - 1.5 mg/dL Final ALK PHOS 05/22/2018 103 35 - 115 U/L Final AST 05/22/2018 18 10 - 45 U/L Final ALT 05/22/2018 30 10 - 65 U/L Final EGFR 05/22/2018 >60 >60 mL/min/1.73m2 Final CPK 05/22/2018 151 55 - 400 U/L Final INR 05/22/2018 1.0 Final APTT 05/22/2018 27 23 - 32 seconds Final MMB 05/22/2018 7.2* 0.5 - 3.6 ng/mL Final CK-MB Index 05/22/2018 4.8 Final TROPONIN I 05/22/2018 <0.04 0.00 - 0.10 ng/mL Final LIPASE 05/22/2018 91 73 - 393 U/L Final GLUCOSE,POC SCREEN 05/22/2018 294* 65 - 99 mg/dL Final KETONES,SERUM 05/22/2018 NEGATIVE NEGATIVE Final COLOR UA 05/22/2018 DK YELLOW Final CLARITY 05/22/2018 HAZY Final Specific [place], UA 05/22/2018 >1.030 1.001 - 1.035 Final LEUKOCYTE ESTERASE 05/22/2018 NEGATIVE NEGATIVE Final NITRITE 05/22/2018 NEGATIVE NEGATIVE Final UROBILINOGEN 05/22/2018 0.2 <1.1 mg/dL Final PROTEIN 05/22/2018 100* NEGATIVE mg/dL Final PH,URINE 05/22/2018 5.5 4.6 - 8.0 Final BLOOD 05/22/2018 NEGATIVE NEGATIVE Final KETONES 05/22/2018 15* NEGATIVE mg/dL Final BILIRUBIN 05/22/2018 MODERATE* NEGATIVE Final GLUCOSE 05/22/2018 500* NEGATIVE mg/dL Final WBC 05/22/2018 1-5 0 - 5 /hpf Final RBC 05/22/2018 0-2 0 - 2 /hpf Final EPITHELIAL 05/22/2018 1-5 /lpf Final BACTERIA 05/22/2018 2+* NONE SEEN Final Mucus, UA 05/22/2018 4+ Final GLUCOSE,POC SCREEN 05/22/2018 261* 65 - 99 mg/dL Final ] Imaging X-ray Chest 2 View Frontal & Lateral (must Have Ekg Done First) Result Date: 05/22/2018 CHEST TWO VIEWS CLINICAL INFORMATION: Chest pain COMPARISON: XR CHEST 1 VIEW (12/31/2017); XR CHEST 2 VIEW (12/27/2012); FINDINGS: The cardiac silhouette is normal in size with no shift o r widening. There is no pneumothorax. The pulmonary markings are normal in caliber. Platel joe atelectasis is seen along the right lower lung. No focal airspace consolidation is pres ent. There is mild degenerative disc disease of the thoracic spine. Several chronic left-s ided rib fractures are present. Cement is noted along the lower thoracic spine from prior k yphoplasty. 1. There is platelike atelectasis of the left lower lobe. Signed by: Ventura Chang Sign D ate/Time: 05/22/2018 4:50 PM HOSPITAL PROBLEM Principal Problem: Chest pain, rule out acute myocardial infarction Active Problems: Hypertensive urgency Poorly controlled diabetes mellitus (HCC) Hyperglycemia without ketosis ASSESSMENT & PLAN 58-year-old male with prior morbid elevation of BMI (lost 120 pounds in 18 years), insulin- dependent diabetes mellitus poorly controlled, hypertension, dyslipidemia who presents wit h the followin. Atypical chest pain/suggestive of GI etiology but which responded with complete resoluti on after sublingual nitroglycerin trial in the ER. Despite character/and likely etiology of the pain, patient is still at risk of occlusive coronary artery disease progression due to h is poorly controlled diabetes mellitus. He does not recall any recent stress tests. For now we will going to proceed with complete a rule out MD protocol with serial cardio bi omarkers. - Chemical stress test in the a.m.; Serial EKGs have been nonacute. - Continue aspirin - Check hemoglobin A1c and lipid panel in the morning. - Consult cardiology if stress test positive 2. Possible gastroesophageal reflux disease/peptic ulcer disease/gastritis/esophagitis. - Empiric therapy for treatment of GI source of discomfort with H2 naheed and prn Tums and Maalox. - Outpatient referral to GI service for evaluation and likely endoscopic evaluation. - We will assess to start, with right upper quadrant/epigastric ultrasound. 3. Insulin-dependent diabetes mellitus with insulin resistance. Hyperglycemia without ketos is on admission. - For now we will continue combination of insulin Lantus and lispro insulin corrective slid ing scale. - Patient states that he takes NPH insulin 80 units subcu qam and 70 qhs along with sliding scale. - Check hemoglobin A1c - Diabetic and dietary consult - Patient might benefit from outpatient diabetic education. 4. Hypertensive urgency. Continue BP medications. - IV hydralazine 10 mg q4 hours prn. 5. Deep vein thrombosis prophylaxis SCDs and subcu enoxaparin. Disposition: Observation Code Status: Full code Primary Care Physician: Aggie Drew MD 05/22/2018 8:12 PM documented in this encounter Procedure Notes Chata Orosco ARNP - 05/23/2018 12:13 PM PSTFormatting of this note might be different fr om the original. Procedures by DHRUV Romeo at 05/23/181212 Author: DHRUV Romeo Service: Radiology Author Type: Advanced Registered Nurse David berry Filed: 05/23/181213 Date of Service: 05/23/181212 Status: Signed Cardiovascular Specialist: DHRUV Romeo (Advanced Registered Nurse Practitioner) Pre-procedure Diagnoses: 1. Chest pain, unspecified type [R07.9] Post-procedure Diagnoses: 1. Chest pain, unspecified type [R07.9] Procedures: 1. NM MYOCARDIAL PERFUSION SPECT - STRESS AND REST [AKH042 (Custom)] [facility] Service: Diagnostic Imaging/Nuclear Medicine Cardiac Stress Test Note Type of Stress Test performed (protocol): Pharmacologic stress test Federico protocol time (if applicable): N/A Rhythm changes: None Ectopy: None Symptoms experienced during exam: None ST/T wave changes: None Medications administered: Lexiscan 0.4 mg Noonan Treadmill Score: N/A Comments: None documented in this encounter ED Notes Conversion Transaction, Provider Unknown - 05/22/2018 7:03 PM PSTFormatting of this note m ight be different from the original. ED Notes by Lisbeth Garner RN at 05/22/181902 Author: Lisbeth Garner RN Service: (none) Author Type: Registered Nurse Filed: 05/22/181903 Date of Service: 05/22/181902 Status: Signed Cardiovascular Specialist: Lisbeth Garner RN (Registered Nurse) POC glucose 261. AYALA Che notified. AYALA Rodriguez hold on insulin. Yane available that li spro/lantus are not available at [facility]. Lisbeth Garner RN 05/22/181903 onver bora Transaction, Provider Unknown - 05/22/2018 6:33 PM PST ED Notes by Lisbeth Garner RN at 05/22/181832 Author: Lisbeth Garner RN Service: (none) Author Type: Registered Nurse Filed: 05/22/181833 Date of Service: 05/22/181832 Status: Signed Cardiovascular Specialist: Lisbeth Garner RN (Registered Nurse) Assumed care of patient at this time. Patient reports continued CP/epigastric discomfort. Lisbeth Garner RN 05/22/181833 onver bora Transaction, Provider Unknown - 05/22/2018 6:16 PM PST ED Notes by Katelyn Bravo RN at 05/22/181815 Author: Katelyn Bravo RN Service: (none) Author Type: Registered Nurse Filed: 05/22/181815 Date of Service: 05/22/181815 Status: Signed Cardiovascular Specialist: Katelyn Bravo RN (Registered Nurse) Urinal at bedside. Katelyn Bravo RN 05/22/181815 onver bora Transaction, Provider Unknown - 05/22/2018 6:16 PM PST ED Notes by Katelyn Bravo RN at 05/22/181815 Author: Katelyn Bravo RN Service: (none) Author Type: Registered Nurse Filed: 05/22/181815 Date of Service: 05/22/181815 Status: Signed Cardiovascular Specialist: Katelyn Bravo RN (Registered Nurse) Report given to UMM Mike at change of shift. Katelyn Bravo RN 05/22/181815 onver bora Transaction, Provider Unknown - 05/22/2018 4:52 PM PST ED Notes by Katelyn Bravo RN at 05/22/181651 Author: Katelyn Bravo RN Service: (none) Author Type: Registered Nurse Filed: 05/22/181652 Date of Service: 05/22/181651 Status: Signed Cardiovascular Specialist: Katelyn Bravo RN (Registered Nurse) Pt's bp dropped to 114/66 with nitro administration. Provider notified and decision was ma de to not continue giving pt additional 2 doses of nitro. Fluid bolus is ordered. Pt repor ts that nitro did not reduce his chest pain. Continue to monitor pt. Katelyn Bravo RN 05/22/181652 Yane Wadsworth PA-C - 05/22/2018 4:20 PM PST ED Provider Notes by Yane Jean-Baptiste PA-C at 05/22/181619 Author: Yane Jean-Baptiste PA-C Service: Emergency Department Author Type: Physician As sistant - Certified Filed: 05/22/18 180 Date of Service: 05/22/181619 Status: Attested Cardiovascular Specialist: Yane Jean-Baptiste PA-C (Physician [employer] Teacher - Certified) Cosigner: Alex wilson DO at 05/22/182000 Attestation signed by Alex Domínguez DO at 05/22/182000 I have reviewed the patient's chart. I was available for consultation during the care of the patient. Alex Domínguez DO Procedures [facility] Department of Emergency Medicine 4:20 PM History of Present Illness Patient Identification Lele Mustafa is a 58 y.o. male. Patient information was obtained from patient and friend. History/Exam limitations: none. Patient presented to the Emergency Department by: Car Chief Complaint Chief Complaint Patient presents with Chest Pain 2 hours The patient presents to ED with complaints of chest pain. Patient states over the last 2 ho urs, he's had diaphoresis and "a hot poker" sensation to the left-sided chest with occasiona l radiation into the back. He has also had associated nausea, vomiting last week, and diarrh ea last week. He rates moderate pain severity. There are no exacerbating or relieving factor s. Patient states that over the last month, he has experienced epigastric and right upper qu adrant pain, but this feels a little bit different. Denies any pain radiation to the neck, j aw, left upper extremity, dizziness, palpitations, shortness of breath, hemoptysis, leg pain or swelling, or any other symptoms. There has been no homecare prior to arrival. Pertinent cardiac risk factors include type II diabetic on insulin (blood sugars have been ranging 80-300s), hypertension (not on medication), hyperlipidemia, and prior smoker (smoked cigarettes for 15 years, quit 15 years ago). No prior cardiac event. He is unaware of famil y history of heart disease. He takes daily 81mg aspirin. Other pertinent history includes chronic back pain with surgical intervention 2 times in past, which were complicated by MRSA infection requiring PICC line placement for IV antibi otics. PICC line has since been removed (January 2018) PCP: Aggie Dunn Past Medical History Diagnosis Date Diabetes mellitus, type 2 (HCC) Hypertension Past Surgical History Procedure Laterality Date HIP SURGERY SPINE SURGERY 5 back surgeries Prior to Admission medications Medication Sig Start Date End Date Taking? Authorizing Provider acetaminophen (TYLENOL) 500 MG tablet Take 500-1,000 mg by mouth. Historical Provider aspirin EC 81 MG EC tablet Take 81 mg by mouth. Historical Provider atorvastatin (LIPITOR) 40 MG tablet Take 40 mg by mouth daily. 01/11/18 07/10/18 Historical Provider Cholecalciferol (VITAMIN D) 2000 units tablet Take [...] Provider HYDROcodone-acetaminophen (NORCO) 10-325 MG per tablet 01/23/16 Historical Provider ibuprofen (MOTRIN) 600 MG [...] 20 g by mouth. 01/04/18 Historical Provider LORazepam (ATIVAN) 1 MG tablet 02/13/16 Historical Provider losartan-hydrochlorothiazide (HYZAAR) 50-12.5 MG per tablet Take 1 tablet by mouth. Hist orical Provider MAGNESIUM PO Take 250 mg by mouth daily. Historical Provider metFORMIN (GLUCOPHAGE) 1000 MG tablet Take 1,000 mg by mouth. 01/22/16 Historical Provider methylPREDNISolone 4 MG dose pack Take 6 pills on day one, 5 pills on day two, 4 pills on d ay three, 3 pills on day four, 2 pills on day five, and 1 pill on day six. Total course six days. Patient not taking: Reported on 01/23/2018 12/06/15 Evin Rodriguez MD oxycodone 10 MG tablet Take 10-15 mg by mouth. 01/12/18 Historical Provider Potassium 99 MG TABS Take 99 mg by mouth. Historical Provider traMADol (ULTRAM) 50 MG tablet 02/04/16 Historical Provider Allergies Allergen Reactions Codeine Other (See Comments) and Rash "makes my skin crawl" "makes my skin crawl" Morphine Other (See Comments) and Swelling Joint swelling Joint pain Social History Social History Marital status: Spouse [...] family history on file. Review of Systems Constitutional: Negative for fever, chills Eyes: Negative for vision changes Nose: Negative for congestion, nosebleeds Throat: Negative for sore throat CV/Resp: Negative for [id number], cough Positive for chest pain GI: Positive for abdominal pain, nausea, vomiting, and diarrhea : Negative for urinary problems Musculoskeletal: Negative for back pain, joint pain Skin: Negative for rash Positive for diaphoresis Neuro/Psych: Negative for headache All other systems reviewed and negative except as noted. Physical Exam BP (!) 173/91 (BP Location: Left upper arm) | Pulse 97 | Temp 98.1 F (36.7 C) (Oral) | Resp 18 | Ht 1.93 m (6' 4") | Wt 125.2 kg (276 lb) | SpO2 98% | BMI 33.60 kg/m Vital signs interpretation: HTN otherwise WNL Pulse Oximetry interpretation: Normal Physical Exam Constitutional: He is oriented to person, place, and time. HENT: Head: Normocephalic and atraumatic. Eyes: Pupils are equal, round, and reactive to light. EOM are normal. Wears glasses Neck: Normal range of motion. Neck supple. Cardiovascular: Normal rate, regular rhythm and normal heart sounds. Pulses: Radial pulses are 2+ on the right side, and 2+ on the left side. Radial pulses equal bilaterally Pulmonary/Chest: Effort normal and breath sounds normal. No respiratory distress. He has no wheezes. He has no rales. Abdomina/Gl: Normal appearance and bowel sounds are normal. There is tenderness. Musculoskeletal: Normal range of motion. Wearing a leg brace to the right lower extremity for foot drop Neurological: He is alert and oriented to person, place, and time. No cranial nerve deficit . Skin: Skin is warm. Capillary refill takes less than 2 seconds. No rash noted. He is diapho retic. Nursing note and vitals reviewed. Medical Decision Making and Emergency Department Course ED Department Course 58 y.o. male patient with history of type II diabetes on insulin, hypertension, and hyperli pidemia presents to ED with complaints of chest pain. No prior cardiac history. He is curren tly hypertensive with blood pressure 173/91 and clammy to the touch. My DDx includes, but is not limited to: musculoskeletal chest pain, GERD, pericarditis, ACS, angina, pneumonia, rib fracture, and PTX. I considered PE although less likely. Patient has not had any recent caroline geries, long travel, chemotherapy, or hormone use. Will order cardiac enzymes, telemetry, ch est x-ray, and reevaluate the patient. He will be given nitroglycerin and full aspirin. I di scussed the case with my attending physician, Dr. Domínguez, who agrees with this plan. 4:53 PM. Troponin <0.04. RN reports after 1 nitroglycerin patient's blood pressure dropped to 114/66. Will hold remainder of NTG this time. 5:00 PM. Labs reviewed, CBC shows hemoconcentration. CMP with hyperglycemia 321. Will add s luis ketones. Myocardial myoglobin elevated at 7.2. Lipase normal. HEART Score Assessment History: Moderately Suspicious ECG: Normal Age: 45-65 Risk Factors: 3 Or More Risk Factors Troponin: <1x Normal Limit HEART Score: 4 (05/22/18 1733 : Yane Jean-Baptiste PA-C) 5:34 PM. Serum ketones are negative. I reassessed the patient is lying completely at this t messi. States he is chest pain-free after nitroglycerin has been given. Patient's oxygen poorl y dropped to 93% and thus he has been started on 2 L nasal cannula. He denies any respirator y distress. Explained with patient that given his risk factors and heart score 4, he is best served by admission for further cardiac assessment and serial troponins. He understood and agreed with this plan. Upon review of the patient s history, physical and the results of studies I believe that the patient warrants admission to the hospital for further evaluation and treatment. I have spoken with the patient regarding the need for admission to the hospital, and the patient h as expressed understanding of this. I will call and arrange for admission at this time. 5:51 PM. Case discussed with Dr. Drew, hospitalist, who accepts for observation. Vitals: 05/22/18 1619 05/22/18 1645 05/22/18 1650 05/22/18 1721 BP: (!) 173/91 (!) 141/94 114/66 118/76 BP Location: Left upper arm Right upper arm Left upper arm Pulse: 97 95 94 97 Resp: 18 16 18 Temp: 98.1 F (36.7 C) TempSrc: Oral SpO2: 98% 94% 93% 97% Weight: 125.2 kg (276 lb) Height: 1.93 m (6' 4") Records Reviewed Old medical records. Nursing notes. Previous radiology studies. [place] [facility] [place] visits for unrelated complaints. On review of [facility] records, patient has apparently been seen at [facility] for epigastric and right upper quadrant pain 2 times this month, and seen in February for palpitations. Medication Given Medications sodium chloride 0.9 % flush 10 mL (not administered) nitroGLYCERIN (NITROSTAT) SL tablet 0.4 mg (0.4 mg Sublingual Given 05/22/18 164) sodium chloride (bolus) 0.9 % 1,000 mL (1,000 mLs Intravenous New Bag 05/22/18 172) insulin glargine (LANTUS) injection 5 Units (not administered) insulin lispro (human) (HUMALOG) injection 5 Units (not administered) aspirin chewable tablet 324 mg (324 mg Oral Given 05/22/181642) Laboratory Evaluation Results Procedure Component Value Ref Range Date/Time Urinalysis (reflex to micro) [[id number]] Order Status: Sent Specimen: Urine from Urine, Clean Catch Ketones, Serum [[id number]] Collected: 05/22/181615 Order Status: Completed Specimen: Blood Updated: 05/22/181722 KETONES,SERUM NEGATIVE NEGATIVE Lipase [[id number]] Collected: 05/22/181615 Order Status: Completed Specimen: Blood Updated: 05/22/181652 LIPASE 91 73 - 393 U/L Cardiac Panel [[id number]] (Abnormal) Collected: 05/22/181615 Order Status: Completed Updated: 05/22/181652 WBC 7.82 3.80 - 11.00 K/uL RBC 5.61 4.20 - 5.70 M/uL HGB 17.3 (H) 13.2 - 17.0 g/dL HCT 51.4 (H) 39.0 - 50.0 % MCV 91.6 80.0 - 100.0 fl MCH 30.8 27.0 - 34.0 pg MCHC 33.7 32.0 - 35.5 g/dL RDW SD 43.7 37 - 53 fl PLT 169 150 - 400 K/uL MPV 12.8 fl DIFF TYPE AUTOMATED nRBC 0.0 0 /100WBC NEUTROPHILS 73.90 % LYMPHOCYTES 16.10 % MONOCYTES 8.40 % EOSINOPHILS 0.40 % BASOPHILS 0.40 % IMMATURE GRANULOCYTE 0.80 % NEUTROPHILS ABS 5.78 1.90 - 7.40 K/uL LYMPHOCYTES ABS 1.26 1.00 - 3.90 K/uL MONOCYTES ABS 0.66 0.00 - 0.80 K/uL EOSINOPHILS ABS 0.03 0.00 - 0.50 K/uL BASOPHILS ABS 0.03 0.00 - 0.10 K/uL IMMATURE GRAN ABS 0.06 K/uL MORPHOLOGY RBC AND PLT MORPHOLOGY APPEAR NORMAL SODIUM 137 135 - 145 mmol/L POTASSIUM 4.1 3.5 - 4.9 mmol/L CHLORIDE 96 (L) 99 - 109 mmol/L CO2 28 23 - 32 mmol/L ANION GAP AGAP 18 5 - 20 mmol/L GLUCOSE 321 (H) 65 - 99 mg/dL BUN 23 8 - 25 mg/dL CREATININE 1.04 0.70 - 1.30 mg/dL BUN/CREAT 22 CALCIUM 9.7 8.5 - 10.5 mg/dL TOTAL PROTEIN 8.1 6.3 - 8.2 g/dL Albumin 4.6 3.3 - 4.8 g/dL GLOBULIN 3.5 1.3 - 4.9 g/dL A/G 1.3 1.0 - 2.4 TBIL 1.4 0.1 - 1.5 mg/dL ALK PHOS 103 35 - 115 U/L AST 18 10 - 45 U/L ALT 30 10 - 65 U/L EGFR >60 >60 mL/min/1.73m2 CPK 151 55 - 400 U/L INR 1.0 APTT 27 23 - 32 seconds MMB 7.2 (H) 0.5 - 3.6 ng/mL CK-MB Index 4.8 Troponin I [[id number]] Collected: 05/22/18 1616 Order Status: Completed Specimen: Blood Updated: 05/22/18 1653 TROPONIN I <0.04 0.00 - 0.10 ng/mL POCT glucose (I-STAT) [[id number]] Order Status: Sent I personally reviewed the lab results and they have been posted to the chart. Pertinent po sitive and negative findings have been addressed appropriately. Radiology and EKG Evaluation Imaging Results X-ray chest 2 view frontal & lateral (must have EKG done FIRST) (Final result) Result dulce maria geremias 05/22/18 16:53:52 Notes recorded by Hiram King PA-C on 05/22/2018 at 5:49 PM PST Pt is currently admitted and being followed by hospitalist service. Final result by Ventura Chang MD (05/22/18 16:53:52) Impression: 1. There is platelike atelectasis of the left lower lobe. Signed by: Ventura Chang Sign Date/Time: 05/22/2018 4:50 PM Narrative: CHEST TWO VIEWS CLINICAL INFORMATION: Chest pain COMPARISON: XR CHEST 1 VIEW (12/31/2017); XR CHEST 2 VIEW (12/27/2012); FINDINGS: The cardiac silhouette is normal in size with no shift or widening. There is no pneumothorax. The pulmonary markings are normal in caliber. Platelike atelectasis is seen along the right lower lung. No focal airspace consolidation is present. There is mild degenerative disc disease of the thoracic spine. Several chronic left-sided rib fractures are present. Cement is noted along the lower thoracic spine from prior kyphoplasty. EKG time 1617. Sinus rhythm. 96 bpm. Left axis deviation. MT interval 178 ms.. T waves are seen in leads V2 and V3 and T-wave flattening in leads 3 and aVL. Does not suggest acute isc hemia. No old for comparison. Reviewed by Dr. Domínguez. ED Diagnoses Final diagnoses Unstable angina (HCC) Hypertension, unspecified type Type 2 diabetes mellitus with hyperglycemia, with long-term current use of insulin (HCC) Hyperlipidemia, unspecified hyperlipidemia type Disposition: ED Disposition ED Disposition Condition Comment Admit/Observation Bed request special needs: none Diagnosis?: unstable angina, poorly controlled HTN, type II DM Yane Jean-Baptiste PA-C 05/22/18 1801 Alex Domínguez DO 05/22/182000 documented in thi s encounter Miscellaneous Notes Plan of Care - Conversion Transaction, Provider Unknown - 05/23/2018 10:46 AM PST Plan of Care by Jennie Braxton RN at 05/23/18 1046 Author: Jennie Braxton RN Service: (none) Author Type: Registered Nurse Filed: 05/23/18 1046 Date of Service: 05/23/18 1046 Status: Signed Cardiovascular Specialist: Jennie Braxton RN (Registered Nurse) Problem: MD Day 1 - Education/Support Goal: Patient aware of MD and rule-out MD process Outcome: Progressing Discussed NMST process, lab necessity, risk factors to MD. Goal: Comfort level Feelings of physical and psychological ease. Outcome: Not Progressing Pt states mid-epigastric pain persists at 6/10. Goal: Patient using effective coping mechanisms Outcome: Progressing Pt remains understanding to necessity of admission and testing. No apparent signs of distre ss at this time. Pt staters he is familiar with NMST chemical process, as he has had one in the past. lan o f Care - Conversion Transaction, Provider Unknown - 05/23/2018 5:50 AM PSTFormatting of thi s note might be different from the original. Plan of Care by Ava Bravo RN at 05/23/18 0550 Author: Ava Bravo RN Service: (none) Author Type: Registered Nurse Filed: 05/23/18 0551 Date of Service: 05/23/18 0550 Status: Signed Cardiovascular Specialist: Ava Bravo RN (Registered Nurse) MD Day 1 - Education/Support Patient aware of MD and rule-out MD process Progressing Comfort level Progressing Patient using effective coping mechanisms Progressing Explained procedures / tests and their purpose in the MD rule out process. Friend at davyid e, all questions answered. MD Day 1 - MD Management Pain level Progressing Pt appropriately rates pain using the 1-10 scale. Asks for PRN pain medication as needed an d understands the importance of medicating before pain is intolerable. docume nted in this encounter Plan of Treatment Not on filedocumented as of this encounter Procedures + +--------+ + + + | Procedure Name | Priori | Date/Time | Associated Diagnosis | Comments | | | ty | | | | + +--------+ + + + | NM MYOCARDIAL | Routin | 05/23/2018 | | Results for this | | PERFUSION MULT SPECT | e | 1:35 PM | | procedure are in the | | | | PST | | results section. | + +--------+ + + + | POC GLUCOSE | Routin | 05/23/2018 | | Results for this | | | e | 4:59 AM | | procedure are in the | | | | PST | | results section. | + +--------+ + + + | EXTERNAL LAB: CBC | Routin | 05/23/2018 | | Results for this | | | e | 4:45 AM | | procedure are in the | | | | PST | | results section. | + +--------+ + + + | LIPID PANEL | Routin | 05/23/2018 | | Results for this | | | e | 4:45 AM | | procedure are in the | | | | PST | | results section. | + +--------+ + + + | TROPONIN I | Routin | 05/23/2018 | | Results for this | | | e | 4:45 AM | | procedure are in the | | | | PST | | results section. | + +--------+ + + + | PHOSPHORUS | Routin | 05/23/2018 | | Results for this | | | e | 4:45 AM | | procedure are in the | | | | PST | | results section. | + +--------+ + + + | MAGNESIUM | Routin | 05/23/2018 | | Results for this | | | e | 4:45 AM | | procedure are in the | | | | PST | | results section. | + +--------+ + + + | COMPREHENSIVE | Routin | 05/23/2018 | | Results for this | | METABOLIC PANEL | e | 4:45 AM | | procedure are in the | | | | PST | | results section. | + +--------+ + + + | ECG 12 LEAD | Routin | 05/23/2018 | | Results for this | | | e | 3:59 AM | | procedure are in the | | | | PST | | results section. | + +--------+ + + + | TROPONIN I | Routin | 05/22/2018 | | Results for this | | | e | 11:43 PM | | procedure are in the | | | | PST | | results section. | + +--------+ + + + | HEMOGLOBIN A1C | Routin | 05/22/2018 | | Results for this | | | e | 11:43 PM | | procedure are in the | | | | PST | | results section. | + +--------+ + + + | POC GLUCOSE | Routin | 05/22/2018 | | Results for this | | | e | 11:10 PM | | procedure are in the | | | | PST | | results section. | + +--------+ + + + | POC GLUCOSE | Routin | 05/22/2018 | | Results for this | | | e | 9:44 PM | | procedure are in the | | | | PST | | results section. | + +--------+ + + + | ECG 12 LEAD | Routin | 05/22/2018 | | Results for this | | | e | 8:18 PM | | procedure are in the | | | | PST | | results section. | + +--------+ + + + | TROPONIN I | Routin | 05/22/2018 | | Results for this | | | e | 8:08 PM | | procedure are in the | | | | PST | | results section. | + +--------+ + + + | MRSA NAAT | Timed | 05/22/2018 | | Results for this | | | | 8:00 PM | | procedure are in the | | | | PST | | results section. | + +--------+ + + + | POC GLUCOSE | Routin | 05/22/2018 | | Results for this | | | e | 6:57 PM | | procedure are in the | | | | PST | | results section. | + +--------+ + + + | URINALYSIS WITH | Routin | 05/22/2018 | | Results for this | | MICROSCOPIC IF | e | 6:29 PM | | procedure are in the | | INDICATED | | PST | | results section. | + +--------+ + + + | URINALYSIS, | Routin | 05/22/2018 | | Results for this | | MICROSCOPIC ONLY | e | 6:29 PM | | procedure are in the | | | | PST | | results section. | + +--------+ + + + | POC GLUCOSE | Routin | 05/22/2018 | | Results for this | | | e | 4:49 PM | | procedure are in the | | | | PST | | results section. | + +--------+ + + + | XR CHEST 2 VIEWS | Routin | 05/22/2018 | | Results for this | | | e | 4:45 PM | | procedure are in the | | | | PST | | results section. | + +--------+ + + + | ECG 12 LEAD | Routin | 05/22/2018 | | Results for this | | | e | 4:17 PM | | procedure are in the | | | | PST | | results section. | + +--------+ + + + | HISTORICAL LAB PANEL | Routin | 05/22/2018 | | Results for this | | RESULT | e | 4:16 PM | | procedure are in the | | | | PST | | results section. | + +--------+ + + + | TROPONIN I | Routin | 05/22/2018 | | Results for this | | | e | 4:16 PM | | procedure are in the | | | | PST | | results section. | + +--------+ + + + | LIPASE | Routin | 05/22/2018 | | Results for this | | | e | 4:16 PM | | procedure are in the | | | | PST | | results section. | + +--------+ + + + | KETONES, BLOOD | Routin | 05/22/2018 | | Results for this | | | e | 4:16 PM | | procedure are in the | | | | PST | | results section. | + +--------+ + + + documented in this encounter Results NM Myocardial Perfusion Mult SPECT (05/23/2018 1:35 PM PST) + + | Specimen | + + | | + + + + + | Impressions | Performed At | + + + | 1. I see no evidence of ischemia or definite evidence of infarct. | | | 2. Mild global hypokinesis. 3. LVEF 49% stress, 43% rest. | | | Intermediate risk stratification. Signed by: Ibrahima Barth Sign | | | Date/Time: 05/23/2018 2:16 PM | | + + + + + + | Narrative | Performed At | + + + | REST/STRESS MYOCARDIAL PERFUSION STUDY PROTOCOL: STANDARD FEDERICO | | | EXERCISE. CLINICAL INFORMATION: Chest pain, high cholesterol, | | | diabetes, back pain. COMPARISON: None PROCEDURE: Treadmill stress | | | testing was performed and reported separately, followed by the | | | standard department protocol for the SPECT myocardial perfusion | | | examination. RADIOPHARMACEUTICALS: 30.3 mCi technetium 99m | | | {sestamibi} IV for stress imaging, and 11.2 mCi technetium 99m to IV | | | for rest imaging. FINDINGS: Myocardial Perfusion SPECT Images: | | | Prominent thinning of the proximal to mid inferior wall on rest | | | images, persistent on stress supine images, but almost completely | | | resolved on stress prone images, consistent with diaphragmatic | | | artifact. Mild thinning of the cardiac apex on both rest and stress | | | images, probably artifactual. I see no evidence of ischemia or | | | definite evidence of infarct. Gated Study: Rest LVEF 43%. Stress | | | LVEF 49%. Mild global hypokinesis. Volumes: Rest EDV 108 mL. Rest | | | ESV 62 mL. Stress EDV 101 mL. Stress ESV 52 mL. | | + + + + + | Procedure Note | + + | Juni Mcintosh Conversion - 12/05/2018 5:55 PM PDT REST/STRESS MYOCARDIAL PERFUSION STUDY | | PROTOCOL: | | STANDARD FEDERICO EXERCISE. | | CLINICAL INFORMATION: | | Chest pain, high cholesterol, diabetes, back pain. | | COMPARISON: | | None | | PROCEDURE: | | Treadmill stress testing was performed and reported separately, | | followed by the standard department protocol for the SPECT myocardial | | perfusion examination. | | RADIOPHARMACEUTICALS: | | 30.3 mCi technetium 99m {sestamibi} IV for stress imaging, and 11.2 mCi | | technetium 99m to IV for rest imaging. | | FINDINGS: | | Myocardial Perfusion SPECT Images: | | Prominent thinning of the proximal to mid inferior wall on rest images, | | persistent on stress supine images, but almost completely resolved on | | stress prone images, consistent with diaphragmatic artifact. Mild | | thinning of the cardiac apex on both rest and stress images, probably | | artifactual. I see no evidence of ischemia or definite evidence of | | infarct. | | Gated Study: | | Rest LVEF 43%. | | Stress LVEF 49%. | | Mild global hypokinesis. | | Volumes: | | Rest EDV 108 mL. | | Rest ESV 62 mL. | | Stress EDV 101 mL. | | Stress ESV 52 mL. | | IMPRESSION: | | 1. I see no evidence of ischemia or definite evidence of infarct. | | 2. Mild global hypokinesis. | | 3. LVEF 49% stress, 43% rest. | | Intermediate risk stratification. | | Signed by: Ibrahima Barth | | Sign Date/Time: 05/23/2018 2:16 PM | + + POC Glucose (05/23/2018 4:59 AM PST) + + + + + + | Component | Value | Ref Range | Performed | Pathologist | | | | | At | Signature | + + + + + + | Glucose, | 92Comment: Testing | 65 - 99 mg/dL | EXTERNAL | | | Fingerstick | performed at [facility] | | LAB | | | | [facility];[place], [place] | | | | | | [address] | | | | + + + + + + + + | Specimen | + + | | + + + +---------+ + + | Performing | Address | City/State/Zipcode | Phone Number | | Organization | | | | + +---------+ + + | EXTERNAL LAB | | | | + +---------+ + + Troponin I (05/23/2018 4:45 AM PST) + + + + + + | Component | Value | Ref Range | Performed | Pathologist | | | | | At | Signature | + + + + + + | Troponin I, | 0.007Comment: 0.04 | 0.00 - 0.04 | EXTERNAL | | | Qual | ng/mL or less | ng/mL | LAB | | | | Negative, repeat | | | | | | testing in four to six | | | | | | hour if clinically | | | | | | indicted0.05 to 0.77 | | | | | | ng/mL | | | | | | Suspicious for | | | | | | myocardial injury. | | | | | | Serial measurements may | | | | | | be necessary to confirm | | | | | | or exclude the diagnosis | | | | | | of acute coronary | | | | | | syndrome. Repeat testing | | | | | | in four to six hours if | | | | | | indicated.0.78 or | | | | | | greater ng/mL | | | | | | Consistent with | | | | | | myocardial injury. | | | | | | Clinical and laboratory | | | | | | correlation recommended. | | | | | | NOTE NEW REFERENCE | | | | | | RANGETesting performed | | | | | | at [facility] | | | | | | [facility];[place] [address] | | | | + + + [...] + +---------+ + + External Lab: CBC (05/23/2018 4:45 AM PST) + + + + + + | Component | Value | Ref Range | Performed | Pathologist | | | | | At | Signature | + + + + + + | WBC | 6.90 | 3.80 - 11.00 | EXTERNAL | | | | | K/uL | LAB | | + + + + + + | Non- | 4.93 | 4.20 - 5.70 | EXTERNAL | | | Red Blood | | M/uL | LAB | | | Cells | | | | | | Counted | | | | | + + + + + + | Hemoglobin | 15.4 | 13.2 - 17.0 | EXTERNAL | | | | | g/dL | LAB | | + + + + + + | Hematocrit, | 44.5 | 39.0 - 50.0 % | EXTERNAL | | | POC | | | LAB | | + + + + + + | MCV | 90.3 | 80.0 - 100.0 fl | EXTERNAL | | | | | | LAB | | + + + + + + | MCH | 31.2 | 27.0 - 34.0 pg | EXTERNAL | | | | | | LAB | | + + + + + + | MCHC | 34.6 | 32.0 - 35.5 | EXTERNAL | | | | | g/dL | LAB | | + + + + + + | RDW-CV | 44.2 | 37 - 53 fl | EXTERNAL | | | | | | LAB | | + + + + + + | Platelet | 129 (L) | 150 - 400 K/uL | EXTERNAL | | | Count | | | LAB | | | Plasma | | | | | + + + + + + | MPV | 11.6 | fl | EXTERNAL | | | | | | LAB | | + + + + + + | Differentia | AUTOMATED | | EXTERNAL | | | l Type | | | LAB | | + + + + + + | % Segmented | 61.33 | % | EXTERNAL | | | | | | LAB | | | Neutrophils | | | | | + + + + + + | % | 24.91 | % | EXTERNAL | | | Lymphocytes | | | LAB | | + + + + + + | % Monocytes | 11.08 | % | EXTERNAL | | | | | | LAB | | + + + + + + | % | 1.96 | % | EXTERNAL | | | Eosinophils | | | LAB | | + + + + + + | % Basophils | 0.72 | % | EXTERNAL | | | | | | LAB | | + + + + + + | Absolute | 4.23 | 1.90 - 7.40 | EXTERNAL | | | Segmented | | K/uL | LAB | | | Neutrophils | | | | | + + + + + + | Absolute | 1.72 | 1.00 - 3.90 | EXTERNAL | | | Lymphocytes | | K/uL | LAB | | + + + + + + | Absolute | 0.76 | 0.00 - 0.80 | EXTERNAL | | | Monocytes | | K/uL | LAB | | + + + + + + | Absolute | 0.14 | 0.00 - 0.50 | EXTERNAL | | | Eosinophils | | K/uL | LAB | | + + + + + + | Absolute | 0.05Comment: Testing | 0.00 - 0.10 | EXTERNAL | | | Basophils | performed at [facility], [address] | K/uL | LAB | | | | [facility], | | | | | | [place] [address] | | | | + + + + + + + + | Specimen | + + | Blood specimen | | (specimen) | + + + +---------+ + + | Performing | Address | City/State/Zipcode | Phone Number | | Organization | | | | + +---------+ + + | EXTERNAL LAB | | | | + +---------+ + + Phosphorus (05/23/2018 4:45 AM PST) + + + + + + | Component | Value | Ref Range | Performed | Pathologist | | | | | At | Signature | + + + + + + | PHOSPHORUS | 2.8Comment: Testing | 2.3 - 4.8 mg/dL | EXTERNAL | | | | performed at [facility], [address] | | LAB | | | | [address], | | | | | | [place] [address] | | | | + + + + + + + + | Specimen | + + | Blood specimen | | (specimen) | + + + +---------+ + + | Performing | Address | City/State/Zipcode | Phone Number | | Organization | | | | + +---------+ + + | EXTERNAL LAB | | | | + +---------+ + + Magnesium (05/23/2018 4:45 AM PST) + + + + + + | Component | Value | Ref Range | Performed | Pathologist | | | | | At | Signature | + + + + + + | Magnesium | 2.2Comment: Testing | 1.7 - 2.4 mg/dL | EXTERNAL | | | | performed at [facility], [address] | | LAB | | | | [address], | | | | | | [place] [address] | | | | + + + + + + + + | Specimen | + + | Blood specimen | | (specimen) | + + + +---------+ + + | Performing | Address | City/State/Zipcode | Phone Number | | Organization | | | | + +---------+ + + | EXTERNAL LAB | | | | + +---------+ + + Lipid Panel (05/23/2018 4:45 AM PST) + + + + + + | Component | Value | Ref Range | Performed | Pathologist | | | | | At | Signature | + + + + + + | Cholesterol | 75 | mg/dL | EXTERNAL | | | | | | LAB | | + + + + + + | Triglycerid | 109 | mg/dL | EXTERNAL | | | es | | | LAB | | + + + + + + | HDL | 35 (L) | mg/dL | EXTERNAL | | | | | | LAB | | + + + + + + | LDL, | 18Comment: Testing | mg/dL | EXTERNAL | | | Calculated | performed at [facility], [address] | | LAB | | | | [address], | | | | | | [place] [address] | | | | + + + [...] + +---------+ + + Comprehensive Metabolic Panel (05/23/2018 4:45 AM PST) + + + + + + | Component | Value | Ref Range | Performed | Pathologist | | | | | At | Signature | + + + + + + | Na | 142 | 135 - 145 | EXTERNAL | | | | | mmol/L | LAB | | + + + + + + | K | 3.4 (L) | 3.5 - 4.9 | EXTERNAL | | | | | mmol/L | LAB | | + + + + + + | Cl | 103 | 99 - 109 mmol/L | EXTERNAL | | | | | | LAB | | + + + + + + | CO2 | 31 | 23 - 32 mmol/L | EXTERNAL | | | | | | LAB | | + + + + + + | Anion Gap | 11 | 5 - 20 mmol/L | EXTERNAL | | | | | | LAB | | + + + + + + | Glucose, | 90 | 65 - 99 mg/dL | EXTERNAL | | | Fasting | | | LAB | | + + + + + + | BUN | 24 | 8 - 25 mg/dL | EXTERNAL | | | | | | LAB | | + + + + + + | Creatinine | 0.8 | 0.70 - 1.30 | EXTERNAL | | | | | mg/dL | LAB | | + + + + + + | BUN/Creatin | 30 | | EXTERNAL | | | ine Ratio | | | LAB | | + + + + + + | Calcium | 8.1 (L) | 8.5 - 10.5 | EXTERNAL | | | | | mg/dL | LAB | | + + + + + + | Protein, | 6.4 | 6.3 - 8.2 g/dL | EXTERNAL | | | Total | | | LAB | | + + + + + + | Albumin | 3.6 | 3.3 - 4.8 g/dL | EXTERNAL | | | | | | LAB | | + + + + + + | Globulin | 2.8 | 1.3 - 4.9 g/dL | EXTERNAL | | | | | | LAB | | + + + + + + | A/G Ratio | 1.3 | 1.0 - 2.4 | EXTERNAL | | | | | | LAB | | + + + + + + | Bilirubin | 1.0 | 0.1 - 1.5 mg/dL | EXTERNAL | | | Total | | | LAB | | + + + + + + | ALP, | 76 | 35 - 115 U/L | EXTERNAL | | | External | | | LAB | | + + + + + + | AST | 12 | 10 - 45 U/L | EXTERNAL | | | | | | LAB | | + + + + + + | ALT | 25 | 10 - 65 U/L | EXTERNAL [...] | | | | | performed at [facility], [address] | | | | | | [facility], | | | | | | [place] [address] | | | | + + + + + + + + | Specimen | + + | Blood specimen | | (specimen) | + + + +---------+ + + | Performing | Address | City/State/Zipcode | Phone Number | | Organization | | | | + +---------+ + + | EXTERNAL LAB | | | | + +---------+ + + ECG 12 lead (05/23/2018 3:59 AM PST) + + + + + + | Component | Value | Ref Range | Performed | Pathologist | | | | | At | Signature | + + + + + + | DIAGNOSIS: | Normal sinus rhythmLow | | EXTERNAL | | | | voltage limb leads | | LAB | | | | onlyIntraventricular | | | | | | conduction disturbance, | | | | | | nonspecific typeLeftward | | | | | | axisPossible Age | | | | | | indeterminate or | | | | | | probably old inferior | | | | | | (diaphragmatic) (Q wave) | | | | | | MIBorderline ECGWhen | | | | | | compared with ECG of | | | | | | 22-MAY-2018 20:18,No | | | | | | significant change was | | | | | | foundConfirmed by | | | | | | CORAZON ALBERTS MD ([id number]) | | | | | | on 05/23/2018 8:11:20 AM | | | | + + + + + + + + | Specimen | + + | | + + + + + | Narrative | Performed At | + + + | Historically converted procedure from [facility] | EXTERNAL LAB | + + + + +---------+ + + | Performing | Address | City/State/Zipcode | Phone Number | | Organization | | | | + +---------+ + + | EXTERNAL LAB | | | | + +---------+ + + Troponin I (05/22/2018 11:43 PM PST) + + + + + + | Component | Value | Ref Range | Performed | Pathologist | | | | | At | Signature | + + + + + + | Troponin I, | 0.01Comment: 0.04 | 0.00 - 0.04 | EXTERNAL | | | Qual | ng/mL or less | ng/mL | LAB | | | | Negative, repeat | | | | | | testing in four to six | | | | | | hour if clinically | | | | | | indicted0.05 to 0.77 | | | | | | ng/mL | | | | | | Suspicious for | | | | | | myocardial injury. | | | | | | Serial measurements may | | | | | | be necessary to confirm | | | | | | or exclude the diagnosis | | | | | | of acute coronary | | | | | | syndrome. Repeat testing | | | | | | in four to six hours if | | | | | | indicated.0.78 or | | | | | | greater ng/mL | | | | | | Consistent with | | | | | | myocardial injury. | | | | | | Clinical and laboratory | | | | | | correlation recommended. | | | | | | NOTE NEW REFERENCE | | | | | | RANGETesting performed | | | | | | at [facility] [place] [address] | | | | | | [facility];[place] [address] | | | | + + + + + + + + | Specimen | + + | Blood specimen | | (specimen) | + + + +---------+ + + | Performing | Address | City/State/Zipcode | Phone Number | | Organization | | | | + +---------+ + + | EXTERNAL LAB | | | | + +---------+ + + Hemoglobin A1C (05/22/2018 11:43 PM PST) + + + + + + | Component | Value | Ref Range | Performed | Pathologist | | | | | At | Signature | + + + + + + | Hemoglobin | 9.4 (H)Comment: HbA1c | 4.0 - 6.0 % | EXTERNAL | | | A1c | method is certified by | | LAB | | | | NGSP and traceable to | | | | | | the DCCT reference | | | | | | method.ADA guidelines | | | | | | indicate: | | | | | | Prediabetes: 5.7 - 6.4 | | | | | | Diabetes: >6.4 | | | | | | Glycemic control for | | | | | | adults with diabetes: | | | | | | <7.0Effective 05/10/2018: | | | | | | Note New Method | | | | + + + + + + | Glycohemogl | 223 (H)Comment: | mg/dL | EXTERNAL | | | obin | Estimated Average | | LAB | | | (GHb),Total | Glucose calculated from | | | | | | hemoglobin A1c by use of | | | | | | the ADA recommended | | | | | | formula.Testing | | | | | | performed at [facility], [address] | | | | | | [facility], | | | | | | [place] [address] | | | | + + + + + + + + | Specimen | + + | Blood specimen | | (specimen) | + + + +---------+ + + | Performing | Address | City/State/Zipcode | Phone Number | | Organization | | | | + +---------+ + + | EXTERNAL LAB | | | | + +---------+ + + POC Glucose (05/22/2018 11:10 PM PST) + + + + + + | Component | Value | Ref Range | Performed | Pathologist | | | | | At | Signature | + + + + + + | Glucose, | 221 (H)Comment: Testing | 65 - 99 mg/dL | EXTERNAL | | | Fingerstick | performed at [facility];[address] | | LAB | | | | [address];[place], [place] | | | | | | [address] | | | | + + + + + + + + | Specimen | + + | | + + + +---------+ + + | Performing | Address | City/State/Zipcode | Phone Number | | Organization | | | | + +---------+ + + | EXTERNAL LAB | | | | + +---------+ + + POC Glucose (05/22/2018 9:44 PM PST) + + + + + + | Component | Value | Ref Range | Performed | Pathologist | | | | | At | Signature | + + + + + + | Glucose, | 235 (H)Comment: Testing | 65 - 99 mg/dL | EXTERNAL | | | Fingerstick | performed at [facility];[address] | | LAB | | | | [address];[place] | | | | | | [address] | | | | + + + + + + + + | Specimen | + + | | + + + +---------+ + + | Performing | Address | City/State/Zipcode | Phone Number | | Organization | | | | + +---------+ + + | EXTERNAL LAB | | | | + +---------+ + + ECG 12 lead (05/22/2018 8:18 PM PST) + + + + + + | Component | Value | Ref Range | Performed | Pathologist | | | | | At | Signature | + + + + + + | DIAGNOSIS: | Normal sinus rhythmLow | | EXTERNAL | | | | voltage limb leads | | LAB | | | | onlyIntraventricular | | | | | | conduction disturbance, | | | | | | nonspecific typeLeftward | | | | | | axisPossible Inferior | | | | | | infarct , age | | | | | | undeterminedBorderline | | | | | | ECGWhen compared with | | | | | | ECG of 22-MAY-2018 | | | | | | 16:17,No significant | | | | | | change was | | | | | | foundConfirmed by | | | | | | CORAZON ALBERTS MD ([id number]) | | | | | | on 05/23/2018 8:01:32 AM | | | | + + + + + + + + | Specimen | + + | | + + + + + | Narrative | Performed At | + + + | Historically converted procedure from [facility] environment | EXTERNAL LAB | + + + + +---------+ + + | Performing | Address | City/State/Zipcode | Phone Number | | Organization | | | | + +---------+ + + | EXTERNAL LAB | | | | + +---------+ + + Troponin I (05/22/2018 8:08 PM PST) + + + + + + | Component | Value | Ref Range | Performed | Pathologist | | | | | At | Signature | + + + + + + | Troponin I, | 0.009Comment: 0.04 | 0.00 - 0.04 | EXTERNAL | | | Qual | ng/mL or less | ng/mL | LAB | | | | Negative, repeat | | | | | | testing in four to six | | | | | | hour if clinically | | | | | | indicted0.05 to 0.77 | | | | | | ng/mL | | | | | | Suspicious for | | | | | | myocardial injury. | | | | | | Serial measurements may | | | | | | be necessary to confirm | | | | | | or exclude the diagnosis | | | | | | of acute coronary | | | | | | syndrome. Repeat testing | | | | | | in four to six hours if | | | | | | indicated.0.78 or | | | | | | greater ng/mL | | | | | | Consistent with | | | | | | myocardial injury. | | | | | | Clinical and laboratory | | | | | | correlation recommended. | | | | | | NOTE NEW REFERENCE | | | | | | RANGETesting performed | | | | | | at [facility];[address];[place] [address] | | | | + + + + + + + + | Specimen | + + | Blood specimen | | (specimen) | + + + +---------+ + + | Performing | Address | City/State/Zipcode | Phone Number | | Organization | | | | + +---------+ + + | EXTERNAL LAB | | | | + +---------+ + + MRSA NAAT (05/22/2018 8:00 PM PST) + + | Specimen | + + | | + + + + + | Narrative | Performed At | + + + | SOURCE NARES(NOSE) MRSA | EXTERNAL LAB | | PCR NEGATIVE Testing | | | performed at [facility];[address] [place] [address];[place] [address] | | + + + + +---------+ + + | Performing | Address | City/State/Zipcode | Phone Number | | Organization | | | | + +---------+ + + | EXTERNAL LAB | | | | + +---------+ + + POC Glucose (05/22/2018 6:57 PM PST) + + + + + + | Component | Value | Ref Range | Performed | Pathologist | | | | | At | Signature | + + + + + + | Glucose, | 261 (H)Comment: Testing | 65 - 99 mg/dL | EXTERNAL | | | Fingerstick | performed at [facility], [address] | [address] | | | | [address], | | | | | | [place] [address] | | | | + + + + + + + + | Specimen | + + | | + + + +---------+ + + | Performing | Address | City/State/Zipcode | Phone Number | | Organization | | | | + +---------+ + + | EXTERNAL LAB | | | | + +---------+ + + Urinalysis, Microscopic Only (05/22/2018 6:29 PM PST) + + + + + + | Component | Value | Ref Range | Performed | Pathologist | | | | | At | Signature | + + + + + + | WBC, UA | 1-5 | 0 - 5 /hpf | EXTERNAL | | | | | | LAB | | + + + + + + | RBC, UA | 0-2 | 0 - 2 /hpf | EXTERNAL | | | | | | LAB | | + + + + + + | Epithelial | 1-5 | /lpf | EXTERNAL | | | Cells | | | LAB | | + + + + + + | Bacteria, | 2+ (A) | | EXTERNAL | | | UA | | | LAB | | + + + + + + | Mucus, | 4+Comment: Testing | | EXTERNAL | | | Urine | performed at [facility], [address] | | LAB | | | | [address], | | | | | | [place] [address] | | | | + + + + + + + + | Specimen | + + | | + + + +---------+ + + | Performing | Address | City/State/Zipcode | Phone Number | | Organization | | | | + +---------+ + + | EXTERNAL LAB | | | | + +---------+ + + Urinalysis with Microscopic if Indicated (05/22/2018 6:29 PM PST) + + + + + + | Component | Value | Ref Range | Performed | Pathologist | | | | | At | Signature | + + + + + + | Color | DK YELLOW | | EXTERNAL | | | | | | LAB | | + + + + + + | Clarity, | HAZY | | EXTERNAL | | | Urine | | | LAB | | + + + + + + | Specific | >1.030 | 1.001 - 1.035 | EXTERNAL | | | [place], | | | LAB | | | Urine | | | | | + + + + + + | Leukocyte | NEGATIVE | | EXTERNAL | | | Esterase, | | | LAB | | | Urine | | | | | + + + + + + | Nitrite, | NEGATIVE | | EXTERNAL | | | Urine | | | LAB | | + + + + + + | Urobilinoge | 0.2 | mg/dL | EXTERNAL | | | n, Urine | | | LAB | | + + + + + + | Protein, | 100 (A) | mg/dL | EXTERNAL | | | Urine | | | LAB | | + + + + + + | pH, Urine | 5.5 | 4.6 - 8.0 | EXTERNAL | | | | | | LAB | | + + + + + + | Blood, | NEGATIVE | | EXTERNAL | | | Urine | | | LAB | | + + + + + + | Ketones | 15 (A) | mg/dL | EXTERNAL | | | | | | LAB | | + + + + + + | Bilirubin, | MODERATE (A) | | EXTERNAL | | | Urine | | | LAB | | + + + + + + | Glucose, | 500 (A)Comment: Testing | mg/dL | EXTERNAL | | | Urine | performed at [facility], [address] | | LAB | | | | [address], | | | | | | [place] [address] | | | | + + + + + + + + | Specimen | + + | Urine specimen | | (specimen) | + + + +---------+ + + | Performing | Address | City/State/Zipcode | Phone Number | | Organization | | | | + +---------+ + + | EXTERNAL LAB | | | | + +---------+ + + POC Glucose (05/22/2018 4:49 PM PST) + + + + + + | Component | Value | Ref Range | Performed | Pathologist | | | | | At | Signature | + + + + + + | Glucose, | 294 (H)Comment: Testing | 65 - 99 mg/dL | EXTERNAL | | | Fingerstick | performed at [facility], [address] | | LAB | | | | [address], | | | | | | [place] [address] | | | | + + + + + + + + | Specimen | + + | | + + + +---------+ + + | Performing | Address | City/State/Zipcode | Phone Number | | Organization | | | | + +---------+ + + | EXTERNAL LAB | | | | + +---------+ + + XR Chest 2 Vws (05/22/2018 4:45 PM PST) + + | Specimen | + + | | + + + + + | Impressions | Performed At | + + + | 1. There is platelike atelectasis of the left lower lobe. Signed | | | by: Ventura Chang Sign Date/Time: 05/22/2018 4:50 PM | | + + + + + + | Narrative | Performed At | + + + | CHEST TWO VIEWS CLINICAL INFORMATION: Chest pain COMPARISON: XR | | | CHEST 1 VIEW (12/31/2017); XR CHEST 2 VIEW (12/27/2012); FINDINGS: The | | | cardiac silhouette is normal in size with no shift or widening. There | | | is no pneumothorax. The pulmonary markings are normal in caliber. | | | Platelike atelectasis is seen along the right lower lung. No | | | focal airspace consolidation is present. There is mild degenerative | | | disc disease of the thoracic spine. Several chronic left-sided rib | | | fractures are present. Cement is noted along the lower thoracic | | | spine from prior kyphoplasty. | | + + + + + | Procedure Note | + + | Arnaldo, Rad Conversion - 12/05/2018 5:55 PM PDT CHEST TWO VIEWS | | CLINICAL INFORMATION: | | Chest pain | | COMPARISON: | | XR CHEST 1 VIEW (12/31/2017); XR CHEST 2 VIEW (12/27/2012); | | FINDINGS: | | The cardiac silhouette is normal in size with no shift or widening. | | There is no pneumothorax. The pulmonary markings are normal in | | caliber. Platelike atelectasis is seen along the right lower lung. No | | focal airspace consolidation is present. There is mild degenerative | | disc disease of the thoracic spine. Several chronic left-sided rib | | fractures are present. Cement is noted along the lower thoracic spine | | from prior kyphoplasty. | | IMPRESSION: | | 1. There is platelike atelectasis of the left lower lobe. | | Signed by: Ventura Chang | | Sign Date/Time: 05/22/2018 4:50 PM | + + ECG 12 lead (05/22/2018 4:17 PM PST) + + + + + + | Component | Value | Ref Range | Performed | Pathologist | | | | | At | Signature | + + + + + + | DIAGNOSIS: | Normal sinus | | EXTERNAL | | | | rhythmNormal ECGNo | | LAB | | | | previous ECGs | | | | | | availableThis ECG | | | | | | contains Unconfirmed | | | | | | Interpretation | | | | | | Statements. See ED | | | | | | Record for Physician | | | | | | Interpretation. | | | | | | Confirmed by MUSE READ | | | | | | ONLY, -COMPUTER ([id number]), | | | | | | technical editor Olivier Arroyo | | | | | | [place] ([id number]) on 05/23/2018 | | | | | | 2:29:39 AM | | | | + + + + + + + + | Specimen | + + | | + + + + + | Narrative | Performed At | + + + | Historically converted procedure from [facility] Epic environment | EXTERNAL LAB | + + + + +---------+ + + | Performing | Address | City/State/Zipcode | Phone Number | | Organization | | | | + +---------+ + + | EXTERNAL LAB | | | | + +---------+ + + Ketones, blood (05/22/2018 4:16 PM PST) + + + + + + | Component | Value | Ref Range | Performed | Pathologist | | | | | At | Signature | + + + + + + | Ketones, | NEGATIVEComment: Testing | | EXTERNAL | | | Blood | performed at [facility], [address] | | LAB | | | | [address], | | | | | | [place] [address] | | | | + + + + + + + + | Specimen | + + | Blood specimen | | (specimen) | + + + +---------+ + + | Performing | Address | City/State/Zipcode | Phone Number | | Organization | | | | + +---------+ + + | EXTERNAL LAB | | | | + +---------+ + + HISTORICAL LAB PANEL RESULT (05/22/2018 4:16 PM PST) + + + + + -+ | Component | Value | Ref Range | Performed | Pathologist | | | | | At | Signature | + + + + + -+ | WBC | 7.82 | 3.80 - 11.00 | EXTERNAL | | | | | K/uL | LAB | | + + + + + -+ | Non- | 5.61 | 4.20 - 5.70 | EXTERNAL | | | Red Blood | | M/uL | LAB | | | Cells | | | | | | Counted | | | | | + + + + + -+ | Hemoglobin | 17.3 (H) | 13.2 - 17.0 | EXTERNAL | | | | | g/dL | LAB | | + + + + + -+ | Hematocrit, | 51.4 (H) | 39.0 - 50.0 % | EXTERNAL | | | POC | | | LAB | | + + + + + -+ | MCV | 91.6 | 80.0 - 100.0 fl | EXTERNAL | | | | | | LAB | | + + + + + -+ | MCH | 30.8 | 27.0 - 34.0 pg | EXTERNAL | | | | | | LAB | | + + + + + -+ | MCHC | 33.7 | 32.0 - 35.5 | EXTERNAL | | | | | g/dL | LAB | | + + + + + -+ | RDW-CV | 43.7 | 37 - 53 fl | EXTERNAL | | | | | | LAB | | + + + + + -+ | Platelet | 169 | 150 - 400 K/uL | EXTERNAL | | | Count | | | LAB | | | Plasma | | | | | + + + + + -+ | MPV | 12.8Comment: NO NORMAL | fl | EXTERNAL | | | | RANGE ESTABLISHED | | LAB | | + + + + + -+ | Differentia | AUTOMATED | | EXTERNAL | | | l Type | | | LAB | | + + + + + -+ | Nucleated | 0.0 | /100WBC | EXTERNAL | | | Red Blood | | | LAB | | | Cells | | | | | + + + + + -+ | % Segmented | 73.90 | % | EXTERNAL | | | | | | LAB | | | Neutrophils | | | | | + + + + + -+ | % | 16.10 | % | EXTERNAL | | | Lymphocytes | | | LAB | | + + + + + -+ | % Monocytes | 8.40 | % | EXTERNAL | | | | | | LAB | | + + + + + -+ | % | 0.40 | % | EXTERNAL | | | Eosinophils | | | LAB | | + + + + + -+ | % Basophils | 0.40 | % | EXTERNAL | | | | | | LAB | | + + + + + -+ | % Immature | 0.80 | % | EXTERNAL | | | Granulocyte | | | LAB | | | s | | | | | + + + + + -+ | Absolute | 5.78 | 1.90 - 7.40 | EXTERNAL | | | Segmented | | K/uL | LAB | | | Neutrophils | | | | | + + + + + -+ | Absolute | 1.26 | 1.00 - 3.90 | EXTERNAL | | | Lymphocytes | | K/uL | LAB | | + + + + + -+ | Absolute | 0.66 | 0.00 - 0.80 | EXTERNAL | | | Monocytes | | K/uL | LAB | | + + + + + -+ | Absolute | 0.03 | 0.00 - 0.50 | EXTERNAL | | | Eosinophils | | K/uL | LAB | | + + + + + -+ | Absolute | 0.03 | 0.00 - 0.10 | EXTERNAL | | | Basophils | | K/uL | LAB | | + + + + + -+ | Absolute | 0.06Comment: NO NORMAL | K/uL | EXTERNAL | | | Immature | RANGE ESTABLISHED | | LAB | | | Granulocyte | | | | | | s | | | | | + + + + + -+ | RBC | RBC AND PLT MORPHOLOGY | | EXTERNAL | | | Morphology | APPEAR NORMAL | | LAB | | + + + + + -+ | Na | 137 | 135 - 145 | EXTERNAL | | | | | mmol/L | LAB | | + + + + + -+ | K | 4.1 | 3.5 - 4.9 | EXTERNAL | | | | | mmol/L | LAB | | + + + + + -+ | Cl | 96 (L) | 99 - 109 mmol/L | EXTERNAL | | | | | | LAB | | + + + + + -+ | CO2 | 28 | 23 - 32 mmol/L | EXTERNAL | | | | | | LAB | | + + + + + -+ | Anion Gap | 18 | 5 - 20 mmol/L | EXTERNAL | | | | | | LAB | | + + + + + -+ | Glucose, | 321 (H) | 65 - 99 mg/dL | EXTERNAL | | | Fasting | | | LAB | | + + + + + -+ | BUN | 23 | 8 - 25 mg/dL | EXTERNAL | | | | | | LAB | | + + + + + -+ | Creatinine | 1.04 | 0.70 - 1.30 | EXTERNAL | | | | | mg/dL | LAB | | + + + + + -+ | BUN/Creatin | 22 | | EXTERNAL | | | ine Ratio | | | LAB | | + + + + + -+ | Calcium | 9.7 | 8.5 - 10.5 | EXTERNAL | | | | | mg/dL | LAB | | + + + + + -+ | Protein, | 8.1 | 6.3 - 8.2 g/dL | EXTERNAL | | | Total | | | LAB | | + + + + + -+ | Albumin | 4.6 | 3.3 - 4.8 g/dL | EXTERNAL | | | | | | LAB | | + + + + + -+ | Globulin | 3.5 | 1.3 - 4.9 g/dL | EXTERNAL | | | | | | LAB | | + + + + + -+ | A/G Ratio | 1.3 | 1.0 - 2.4 | EXTERNAL | | | | | | LAB | | + + + + + -+ | Bilirubin | 1.4 | 0.1 - 1.5 mg/dL | EXTERNAL | | | Total | | | LAB | | + + + + + -+ | ALP, | 103 | 35 - 115 U/L | EXTERNAL | | | External | | | LAB | | + + + + + -+ | AST | 18 | 10 - 45 U/L | EXTERNAL | | | | | | LAB | | + + + + + -+ | ALT | 30 | 10 - 65 U/L | EXTERNAL | | | | | | LAB | | + + + + + -+ | Estimated | >60Comment: GFR <60: | [...] traceable | | | | | | equation. | | | | + + + + + -+ | CK, Total | 151 | 55 - 400 U/L | EXTERNAL | | | | | | LAB | | + + + + + -+ | INR | 1.0Comment: REFERENCE | | [...] SYSTEMIC | | | | | | EMBOLISM | | | | + + + + + -+ | aPTT, | 27 | 23 - 32 seconds | EXTERNAL | | | Patient | | | LAB | | + + + + + -+ | CK-MB | 7.2 (H) | 0.5 - 3.6 ng/mL | EXTERNAL | | | | | | LAB | | + + + + + -+ | CK-MB Index | 4.8Comment: CK INDEX | | EXTERNAL | | | | INTERPRETATION: | | LAB | | | | MMB ng/mL | | | | | | | | | | | |CK INDEX INTERPRETATION: | | | | | | MMB ng/mL | | | | | | | | | | + + + + + -+ + + | Specimen | + + | | + + + +---------+ + + | Performing | Address | City/State/Zipcode | Phone Number | | Organization | | | | + +---------+ + + | EXTERNAL LAB | | | | + +---------+ + + Troponin I (05/22/2018 4:16 PM PST) + + + + + + | Component | Value | Ref Range | Performed | Pathologist | | | | | At | Signature | + + + + + + | Troponin I, | <0.04Comment: 0.00 to | 0.00 - 0.10 | EXTERNAL | | | Qual | 0.10 CONSISTENT WITH | ng/mL | LAB | | | | NORMAL POPULATION0.11 to | | | | | | 0.60 CONSISTENT WITH | | | | | | INCREASED RISK FOR | | | | | | ADVERSE OUTCOMES> 0.60 | | | | | | CONSISTENT | | | | | | WITH WHO CRITERIA FOR | | | | | | ACUTE MD Testing | | | | | | performed at [facility], [address] | | | | | | [address], | | | | | | [place] [address] | | | | + + + + + + + + | Specimen | + + | Blood specimen | | (specimen) | + + + +---------+ + + | Performing | Address | City/State/Zipcode | Phone Number | | Organization | | | | + +---------+ + + | EXTERNAL LAB | | | | + +---------+ + + Lipase (05/22/2018 4:16 PM PST) + + + + + + | Component | Value | Ref Range | Performed | Pathologist | | | | | At | Signature | + + + + + + | Lipase | 91Comment: Testing | 73 - 393 U/L | EXTERNAL | | | | performed at [facility], [address] | | LAB | | | | [address], | | | | | | [place] [address] | | | | + + + [...] + | Diagnosis | + + | Unstable angina (HCC) Intermediate coronary syndrome | + + | Hypertension, unspecified type | + + | Type 2 diabetes mellitus with hyperglycemia, with long-term current use of insulin | | (HCC) | + + | Hyperlipidemia, unspecified hyperlipidemia type | + + documented in this encounter
--- OUTSIDE RECORDS SUMMARY | ~2020-02-04 | XMS | Encounter Summary ---
Demographics + + + | Address | [address] | | | [place] [address] | + + + | Home Phone [...] [place] | | | | | [address] | | + + + + + | Leslie Lentz | ECON | Unknown | | + + + + + Care Team Providers + +------+ + | Care Proposal Development Manager Name | Role | Phone | + +------+ + | Aggie Dunn NP | PCP | | + +------+ + Encounter Details +--------+ + + + + | Date | Type | Department | Care Team | Description | +--------+ + + + + | 01/12/ | Hospital | [facility] | Kai Gillespie MD | Status post lumbar | | 2018 | Encounter | MED CTR XRAY [address] | spinal fusion | | | | [place] | [place] [address] | | | | | [place] [address] | [phone] | | | | | [phone] | | | +--------+ + + + [...] | | | | | | | [id number]= 3 | | | | | | | -007= 6 | | | | | | | [id number]= 9 | | | | | | | [id number]= 12 | | | | | | | [id number]= 15 | | | | | | [...] | | | | | | | -579= 6 | | | | | | | [id number]= 9 | | | | | | | [id number]= 12 | | | | | | | [id number]= 15 | | | | | | | [id number]= 18 | | | | | | [...] 1-1.5 tablets | 120 | 0 | 01/13/20 | | | TABSIndications: S/P | by mouth every 4 | tablet | | 18 | 8 | | lumbar fusion | hours as needed for | | [...] | Routin | Status post lumbar | 1 Occurrences | | 3 Vw | | e | spinal fusion | starting 01/12/2018 | | | | | | until 01/12/2018 | + +---------+--------+ + + documented as of this encounter Visit Diagnoses + + | Diagnosis | + + | Status post lumbar spinal fusion Arthrodesis status | + + documented in this encounter"
--- OUTSIDE RECORDS SUMMARY | ~2020-02-04 | XMS | Encounter Summary ---
Demographics + + + | Address | [address] | | | [place] [address] | + + + | Home Phone | | + + + | Preferred Language | Unknown | + + + | Marital Status | | + + + | Congregational Affiliation | CHR | + + + | Race | White | + + + | Ethnic Group | Not or | + + + Author + + + | Author | [facility] | + + + | Organization | [facility] | + + + | Address | Unknown | + + + | Phone | Unavailable | + + + Support + + +---------+ + | Name | Relationship | Address | Phone | + + +---------+ + | Leslie Lentz | ECON | Unknown | | + + +---------+ + Care Team Providers + +------+ + | Care Park Naturalist Name | Role | Phone | + +------+ + | Aggie Dunn SHYANN | PCP | | + +------+ + Reason for Visit + +--------+ + | Reason | Onset | Comments | | | Date | | + +--------+ + | Telephone follow-up | 12/13/ | message from Dr. Ferguson | | | 2020 | | + +--------+ + Encounter Details +--------+ + + + + | Date | Type | Department | Care Team | Description | +--------+ + + + + | 12/13/ | Telephone | [facility] | Tammy Bagley, | Telephone follow-up | | 2020 | | [facility] at | [address] | (message from | | | | Bartol[address] | [address] | Marty) | | | | [address] | [place], [place] | | | | | [facility], [facility] | [address] | | | | | [place], [place] | [phone] | | | | | [address] | [...] Telephone Encounter - Tammy Bagley MD - 12/14/2019 2:[address] Ferguson - patient seen 12/12/19 - doing well retina attached with good laser OU MD Kaya Pereyra [facility]. documented in this encounter Plan of Treatment Not on filedocumented as of this encounter Visit Diagnoses Not on filedocumented in this encounter"
--- OUTSIDE RECORDS SUMMARY | ~2020-02-04 | XMS | Encounter Summary ---
Demographics + + + | Address | [address] | | | [place] [address] | + + + | Home Phone | | + + + | Preferred Language | Unknown | + + + | Marital Status | | + + + | Baptism Affiliation | 1013 | + + + | Race | White | + + + | Ethnic Group | Not or | + + + Author + + + | Author | [facility] | | | and [place] | + + + | Organization | [facility] | | | and [...] [place] | | | | | [address] | | + + + + + | Leslie Lentz | ECON | Unknown | | + + + + + Care Team Providers + +------+ + | Care Geosciences Professor Name | Role | Phone | + +------+ + | Aggie Dunn NP | PCP | | + +------+ + Reason for Visit + + + | Reason | Comments | + + + | Wound Check | | + + + Encounter Details +--------+---------+ + + + | Date | Type | Department | Care Team | Description | +--------+---------+ + + + | 01/10/ | Office | [facility] | Kai Gillespie MD | Encounter for post | | 2018 | Visit | NEUROSURGERY [address] | surgical wound check | | | | [address] | [place] [address] | (Primary Dx) | | | | [place] | [phone] | | | | | [address] | | | | | | [phone] | | | +--------+---------+ + + + [...] + + + | Blood Pressure | 138/85 | 01/10/2018 1:01 PM | | | | | PDT | | + + + + + | Pulse | 82 | 01/10/2018 1:01 PM | | | | | PDT | | + + + + + | Temperature | - | - | | + + + + + | Respiratory Rate | 17 | 01/10/2018 1:01 PM | | | | | PDT | | + + + + + | Oxygen Saturation | - | - | | + + + + + | Inhaled Oxygen | - | - | | | Concentration | | | | + + + + + | Weight | 127.3 kg (280 lb | 01/10/2018 1:01 PM | | | | 10.3 oz) | PDT | | + + + + + | Height | 193 cm (6' 4") | 01/10/2018 1:01 PM | | | | | PDT | | + + + + + | Body Mass Index | 34.16 | 01/10/2018 1:01 PM | | | | | PDT [...] as of this encounter Progress Notes Nano Aragon RN - 01/10/2018 12:45 [address]Dr. Gillespie expressed a large amount of serosangui nous fluid from left back incision. 2 open areas of incision with adipose tissue exposed. Dr April Gillespie ordering dressing changes to be done BID to be completed by wound care in addition to the abdominal dressing change. Gauze and paper tape dressing placed over incision at this ti me. Patient to be seen again on 01/12, suture may be required at that time. Order fo r dressing changes faxed at this time. Electronically signed by Nano Aragon RN at 2017 4:35 PM Breanne Valiente, Claim Processing Specialist - 01/10/2018 12:45 PM PDTHis noti ed that it looked like he had an infection in the left side (left side of his body). He was instructed to come in and be seen when he showed the nurses at the out patient infusion area . He has not had a fever or noticed any other symptoms of infection except for the redness a nd recent onset of wound drainage. He had surgery on his back 12/15/17 and they did a ALIF AN TERIOR APPROACH L5-S1 ALIF, Posterior Hardware Revision with Iliac Fixation. He just had the dressing placed today due to the draining. He goes 2 times a day every day for the next 3 weeks to get infusions as he has a Hx of MRSA and they are trying to prevent an infection from coming up. He is taking pain medication to help limit the discomfort and the pain he has from the recent surgery. REVIEW OF SYSTEMS GENERALLY: No fever, no [...] present illness. In addition, the patient has no neurological complaints at this time. He feels li ke he has healed well. PSYCHIATRIC: No depression, no sleep disorders, no [...] RHEUMATOLOGIC: No joint arthritis, no rheumatoid arthritis. documented in this encounter Plan of Treatment Not on filedocumented as of this encounter Visit Diagnoses + + | Diagnosis | + + | Encounter for post surgical wound check - Primary | + + documented in this encounter
--- OUTSIDE RECORDS SUMMARY | ~2020-02-04 | XMS | Encounter Summary ---
Demographics + + + | Address | [address] | | | [place] [address] | + + + | Home Phone [...] + + + | Author | [facility] | | | and [place] | + + + | Organization | [facility] | | | [...] [place] | | | | | [address] | | + + + + + | Leslie Lentz | ECON | Unknown | | + + + + + Care Team Providers + +------+ + | Care Insurance Verification Representative Name | Role | Phone | + +------+ + | Aggie Dunn NP | PCP | | + +------+ + Encounter Details +--------+ + + + + | Date | Type | Department | Care Team | Description | +--------+ + + + + | 03/14/ | Hospital | [facility] | Sonia Garza | S/P lumbar fusion; | | 2017 | Encounter | MED CTR XRAY [address] | [address] | Right foot drop | | | | [facility] | [facility] | | | | | [place] [address] | [address] [place], [place] | | | | | [phone] | [address] | | | | | | | [...] | | | | | | | -666= 3 | | | | | | | [id number]= 6 | | | | | | | -864= 9 | | | | | | | [id number]= 12 | | | | | | | [id number]= 15 | | | | | | [...] | | | | | | | -513= 6 | | | | | | | ygadl630-276= 9 | | | | | | | [id number]= 12 | | | | | | | [id number]= 15 | | | | | | | [id number]= 18 | | | | | | [...] LUMBAR SPINE 2 OR | Routin | 03/14/2018 | S/P lumbar fusion | Results for this | | 3 VW | e | 12:16 PM | Right foot drop | procedure are in the | | [...] JOINTS DESCRIBED. Dictated and Signed by: Markel | | | MD Federico Electronically signed: 03/14/2018 3:05 PM | | [...] disease, spondylosis and mild retrolisthesis persist at T14-E6lie L1-2, and mild | | retrolisthesis is [...] fusion Arthrodesis status | + + | Right foot drop Other acquired deformity of ankle and foot | + + documented in this encounter"
--- OUTSIDE RECORDS SUMMARY | ~2020-02-04 | XMS | Encounter Summary ---
Demographics + + + | Address | [address] | | | [place] [address] | + + + | Home Phone | | + + + | Preferred Language | Unknown | + + + | Marital Status | | + + + | Yarsani Affiliation | CHR | + + + | Race | White | + + + | Ethnic Group | Not or | + + + Author + + + | Author | [facility] | + + + | Organization | [facility] | + + + | Address | Unknown | + + + | Phone | Unavailable | + + + Support + + +---------+ + | Name | Relationship | Address | Phone | + + +---------+ + | Leslie Lentz | ECON | Unknown | | + + +---------+ + Care Team Providers + +------+ + | Care Cooker Loader Name | Role | Phone | + +------+ + | Aggie Dunn NP | PCP | | + +------+ + Encounter Details +--------+ + + + + | Date | Type | Department | Care Team | Description | +--------+ + + + + | 11/05/ | Document-Sc | Health Information | Other, Faculty | | | 2015 | anned | Services [address] | [phone] | | | | | [address] | | | | | | Mailcode: [id number] | | | | | | [facility] | | | | | | [place], [place] | | | | | | [address] | | | | | | [phone] | | | +--------+ + + + [...] | + +--------+ + + + | RADIOLOGY | | 11/06/2015 | | Results for this | | | | 12:00 AM | | procedure are in the | | | | PDT | | results section. | + +--------+ + + + documented in this encounter Results RADIOLOGY (11/06/2015 12:00 AM PDT) + + + | Narrative | Performed At | + + + | | | + + + documented in this encounter Visit Diagnoses Not on filedocumented in this encounter"
--- OUTSIDE RECORDS SUMMARY | ~2020-02-04 | XMS | Encounter Summary ---
Demographics + + + | Address | [address] | | | [place] [address] | + + + | Home Phone [...] [place] | | | | | [address] | | + + + + + | Leslie Lentz | ECON | Unknown | | + + + + + Care Team Providers + +------+ + | Care Engineer Station Mainline Name | Role | Phone | + +------+ + | Paulo Rothman MD | PCP | | + +------+ + Encounter Details +--------+ + + + + | Date | Type | Department | Care Team | Description | +--------+ + + + + | 01/01/ | Hospital | [facility] | Conversion | Pain | | 2018 | Encounter | [address] | Transaction, | | | | | [address] | Provider Unknown | | | | | [place], [place] | [phone] | | | | | [address] | | | | | | [phone] | | | +--------+ + + + [...] | | | | | | | [id number]= 3 | | | | | | | [id number]= 6 | | | | | | | [id number]= 9 | | | | | | | [id number]= 12 | | | | | | | [id number]= 15 | | | | | | [...] | | | | | | | [id number]= 6 | | | | | | | [id number]= 9 | | | | | | | [id number]= 12 | | | | | | | [id number]= 15 | | | | | | | -491= 18 | | | | | | [...] 1 tablet by | | 0 | 12/31/19 | | | amoxicillin-clavulan | mouth 2 times daily. | | | 18 | 8 | | ate (AUGMENTIN) | | | | | | | 875-125 mg per | | | | | | | tablet | | | | | | + + + +---------+ + + | bacitracin 500 | Apply 1 Application | | 0 | 12/29/19 | | | UNIT/GM ointment | topically Daily. To | | | 18 | 8 | | | surgical incision on | | | | | | | abdomin for 7 days | | | | | + + [...] +--------+ + + + | XR CHEST 1 VIEW | Routin | 12/31/2017 | | Results for this | | | e | 12:48 AM | | procedure are in the | | | | PDT | | results section. | + +--------+ + + + documented in this encounter Results XR Chest 1 Vw (12/31/2017 12:48 AM PDT) + + | Specimen | + + | | + + + + + | Narrative | Performed At | + + + | This is a non-reportable procedure without a radiologist report and | | | is used for image storage only | | + + + + + | Procedure Note | + + | Juni Mcintosh Larno - 12/06/2018 4:56 AM PDT This is a non-reportable procedure | | without a radiologist report and isused for image storage only | + + documented in this encounter Visit Diagnoses + + | Diagnosis | + + | Pain Generalized pain | + + documented in this encounter"
--- OUTSIDE RECORDS SUMMARY | ~2020-02-04 | XMS | Encounter Summary ---
Demographics + + + | Address | [address] | | | [place] [address] | + + + | Home Phone | | + + + | Preferred Language | Unknown | + + + | Marital Status | | + + + | Advent Affiliation | CHR | + + + [...] Team Providers + +------+ + | Care Government Minister Name | Role | Phone | + +------+ + | Aggie Dunn NP | PCP | | + +------+ + Encounter Details +--------+--------+ + + + | Date | Type | Department | Care Team | Description | +--------+--------+ + + + | 01/01/ | Travel | | | | | 2020 | | | | | +--------+--------+ + + + Social History + + [...]
--- OUTSIDE RECORDS SUMMARY | ~2020-02-04 | XMS | Encounter Summary ---
Demographics + + + | Address | [address] | | | [place] [address] | + + + | Home Phone [...] Author + + + | Author | [facility] | + + + | Organization | [facility] | + + + | Address | Unknown | + + + | Phone | Unavailable | + + + Support + + +---------+ + | Name | Relationship | Address | Phone | + + +---------+ + | Leslie Lentz | ECON | Unknown | | + + +---------+ + Care Team Providers + +------+ + | Care [employer] Principal Name | Role | Phone | + +------+ + | Aggie Dunn SHYANN | PCP | | + +------+ + Encounter Details +--------+ + + + + | Date | Type | Department | Care Team | Description | +--------+ + + + + | 01/01/ | Procedure | [facility] LOC | | | | 2020 | Pass | [address] [facility] | | | | | | [facility] | | | | | | [place] [address] | | | +--------+ + + + [...]
--- OUTSIDE RECORDS SUMMARY | ~2020-02-04 | XMS | Encounter Summary ---
Demographics + + + | Address | [address] | | | [place] [address] | + + + | Home Phone | | + + + | Preferred Language | Unknown | + + + | Marital Status | | + + + | Christian Affiliation | CHR | + + + [...] Team Providers + +------+ + | Care Customs Import Specialist Name | Role | Phone | + +------+ + | Aggie Dunn NP | PCP | | + +------+ + Encounter Details +--------+--------+ + + + | Date | Type | Department | Care Team | Description | +--------+--------+ + + + | 12/07/ | Travel [...]
--- OUTSIDE RECORDS SUMMARY | ~2020-02-04 | XMS | Encounter Summary ---
Demographics + + + | Address | [address] | | | [place] [address] | + + + | Home Phone [...] + + | Author | [facility] | | | and [place] | + + + | Organization | [facility] | | | [...] [address] | | | | | [address] | | + + + + + | Leslie Lentz | ECON | Unknown | | + + + + + Care Team Providers + +------+ + | Care Trash Man Name | Role | Phone | + +------+ + PCP | Unavailable | + +------+ + Reason for Visit + + + | Reason | Comments | + + + | Follow-up | Discuss Surgery | + + + Encounter Details +--------+---------+ + + + | Date | Type | Department | Care Team | Description | +--------+---------+ + + + | 10/25/ | Office | [facility] | Kai Gillespie MD | Pseudoarthrosis of | | 2018 | Visit | NEUR[address]URGERY [address] | [address] | lumbar spine | | | | [address] | [place] [address] | (Primary Dx); Right | | | | [place] | [phone] | foot drop; S/P | | | | [address] | | lumbar fusion; | | | | [phone] | | Lumbar | | | | | | radiculopathy; | | | | | | Foraminal stenosis | | | | | | of lumbar region | +--------+---------+ + + + Social History [...] + + + | Blood Pressure | 127/84 | 10/25/2017 11:02 AM | | | | | PDT | | + + + + + | Pulse | 67 | 10/25/2017 11:02 AM | | | | | PDT | | + + + + + | Temperature | - | - | | + + + + + | Respiratory Rate | 16 | 10/25/2017 11:02 AM | | | | | PDT | | + + + + + | Oxygen Saturation | - | - | | + + + + + | Inhaled Oxygen | - | - | | | Concentration | | | | + + + + + | Weight | 119.7 kg (263 lb | 10/25/2017 11:02 AM | | | | 14.3 oz) | PDT | | + + + + + | Height | 193 cm (6' 4") | 10/25/2017 11:02 AM | | | | | PDT | | + + + + + | Body Mass Index | 32.12 | 10/25/2017 11:02 AM | | | | | PDT [...] encounter Progress Notes Kai Gillespie MD - 10/25/2017 10:45 AM PDTFormatting of this note might be different from t johny original. Kai Gillespie MD [address] [place] [address], [address] [place], [place] [id number] FAX: NEUROSURGERY FOLLOW-UP CHIEF COMPLAINT: Chief Complaint Patient presents with Follow-up Discuss Surgery HISTORY OF PRESENT ILLNESS: The patient is a 57 y.o. male that had a lumbar fusion for cali nosis and radiculopathy on 11/11/2017. He returns and overall is doing okay. His back pain is reduced from preoperatively but he continues to have some right drop foot and weakness th at has not improved. He has to use an AFO due to weakness. He returns today to ask questions about the surgery discussed at last visit. CURRENT MEDICATIONS: Current Outpatient Prescriptions Medication Sig [...] at L5-S1 with loosened S1 hardware. ASSESSMENT: No diagnosis found. Past Medical History: Diagnosis Date Anxiety Depression [...] high dose opioids that are becoming less effective. I continue to advise willard ion with an ALIF and posterior revision of [...] I am also prescribing a bone jenna h stimulator postoperatively. This is to improve the probability and rate of fusion. He would like to be considered for this operation. We will refer him to general surgery fo r evaluation of his approach at L5-S1. Additionally, he had his car break down for his pain clinic visit. He will run out in less than 1 day. I did provide him with a prescription to cover him but asked that he contact h is pain provider first before filling it. 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
--- OUTSIDE RECORDS SUMMARY | ~2020-02-04 | XMS | Encounter Summary ---
Demographics + + + | Address | [address] | | | [place] [address] | + + + | Home Phone | | + + + | Preferred Language | Unknown | + + + | Marital Status | | + + + | Buddhist Affiliation | 1013 | + + + | Race | White | + + + | Ethnic Group | Not or | + + + Author + + + | Author | [facility] | | | and [place] | + + + | Organization | [facility] | | [...] [address] | | | | | [address] | | + + + + + | Leslie Lentz | ECON | Unknown | | + + + + + Care Team Providers + +------+ + | Care Commercial Insulator Name | Role | Phone | + +------+ + PCP | Unavailable | + +------+ + Encounter Details +--------+ + + + + | Date | Type | Department | Care Team | Description | +--------+ + + + + | 09/04/ | Hospital | [facility] OP | Eva Veronica, | Toxic Diffuse Goiter | | 2008 | Encounter | [address] | AM[address]ATION CLERK [address] | without Mention of | | | | [address] | [facility] | Thyrotoxic Crisis or | | | | [place], [place] | [place] [address] | [place] | | | | [address] | [phone] | | | | | [phone] | | | +--------+ + + + [...] + +--------+ + + + | NM RADIOPHARM | Routin | 09/04/2008 | | Results for this | | THERAPY ORAL | e | 10:57 AM | | procedure are in the | | ADMINISTRATION | | PDT | | results section. | + +--------+ + + + documented in this encounter Results NM Radiopharm Therapy Oral Administratio (09/04/2008 10:57 AM PDT) + + | Specimen | + + | | + + + + + | Narrative | Performed At | + + + | [id number] | | | Page 1 RADIOLOGY | | | / | | | O/P [facility] | | | NAME: [place] [address] | | | | | | | | | DATE OF : 1960 ORDER NUMBER: [id number] EXAM | | | DATE/TIME: 09/04/2008 09:49 A ORDERING PHYSICIAN: BENITO ANDERSON | | | ORDER DETAIL: [id number] / / HNM EXAM DESCRIPTION: NM THERAPUTIC | | | THYROID | | | | | | NUCLEAR MEDICINE ABLATION THERAPY WITH I-131 SCAN 09/04/2008 | | | HISTORY Hyperthyroidism. This patient has had symptoms of | | | hyperthyroidism treated with antithyroid medications with good | | | effect, but with eventual development of side effects. He now | | | requests thyroid ablation with iodine-131. DESCRIPTION OF | | | PROCEDURE A TSH level on 09/02/2008 was 0.27. A dose of 13 mCi was | | | prescribed. I discussed the risks, benefits and expected outcome | | | of radioiodine therapy with the patient. Appropriate precautions for | | | the patient and his household during the treatment interval were | | | discussed and the patient signified his understanding. He then | | | swallowed an oral capsule containing 12.9 mCi of iodine-131. He will | | | follow up with Dr. Anderson for blood testing and replacement thyroid | | | if needed. IMPRESSION Treatment of Graves disease, with 12.9 mCi | | | of iodine-131 in the form of oral capsule. No complications. Read | | | by LORA BENITEZ MD 09/04/2008 06:36 P Electronically Signed by | | | LORA BENITEZ MD 09/05/2008 11:37 A P | | | P CLAUDE/[id number]/ cc: EVA VERONICA, | | | MD LORA NATH MD | | | BENITO ANDERSON MD | | + + + + + | Procedure Note | + + | Arnaldo, Rad Conversion - 12/18/2018 4:37 AM PDT | | [id number] Page 1 | | RADIOLOGY / | | O/P | | [facility] NAME: [address] [place] [address] | | [place] [address] | | | | DATE OF : 1960 | | | | ORDER NUMBER: [id number] | | EXAM DATE/TIME: 09/04/2008 09:49 A | | ORDERING PHYSICIAN: BENITO ANDERSON | | ORDER DETAIL: [id number] / / HNM | | EXAM DESCRIPTION: NM THERAPUTIC THYROID | | | | NUCLEAR MEDICINE ABLATION THERAPY WITH I-131 SCAN 09/04/2008 | | | | HISTORY | | Hyperthyroidism. This patient has had symptoms of hyperthyroidism | | treated with antithyroid medications with good effect, but with eventual | | development of side effects. He now requests thyroid ablation with | | iodine-131. | | | | DESCRIPTION OF PROCEDURE | | A TSH level on 09/02/2008 was 0.27. A dose of 13 mCi was prescribed. | | | | I discussed the risks, benefits and expected outcome of radioiodine | | therapy with the patient. Appropriate precautions for the patient and | | his household during the treatment interval were discussed and the | | patient signified his understanding. He then swallowed an oral capsule | | containing 12.9 mCi of iodine-131. He will follow up with Dr. Anderson for | | blood testing and replacement thyroid if needed. | | | | IMPRESSION | | Treatment of Graves disease, with 12.9 mCi of iodine-131 in the form of | | oral capsule. No complications. | | | | Read by | | LORA BENITEZ MD 09/04/2008 06:36 P | | Electronically Signed by | | LORA BENITEZ MD 09/05/2008 11:37 A | | | | P | | P | | [id number]/ | | cc: DHRUV DELAROSA | | LIBIA GUTIERREZ MD | | LORA BENITEZ MD | | BENITO ANDERSON MD | + + documented in this encounter Visit Diagnoses + + | Diagnosis | + + | Toxic diffuse goiter without mention of thyrotoxic crisis or storm | + + documented in this encounter"
--- OUTSIDE RECORDS SUMMARY | ~2020-02-04 | XMS | Encounter Summary ---
Demographics + + + | Address | [address] | | | [place] [address] | + + + | Home Phone | | + + + | Preferred Language | Unknown | + + + | Marital Status | | + + + | Catholic Affiliation | CHR | + + + | Race | White | + + + | Ethnic Group | Not or | + + + Author + + + | Author | [facility] | + + + | Organization | [facility] | + + + | Address | Unknown | + + + | Phone | Unavailable | + + + Support + + +---------+ + | Name | Relationship | Address | Phone | + + +---------+ + | Leslie Lentz | ECON | Unknown | | + + +---------+ + Care Team Providers + +------+ + | Care Major Appliance Assembly Supervisor Name | Role | Phone | + +------+ + | Aggie Dunn NP | PCP | | + +------+ + Reason for Visit +---------+ + | Reason | Comments | +---------+ + | Post Op | | +---------+ + Benefits Check (Routine) + +--------+ + [...] | | | | | | | [address] | | | | | | | [address] | | | | | | | [place] | | | | | | | [place], [place] | | | | | | | [address] | | | | | | | Phone: | | | | | | | [phone] | | | | | | | Fax: | | | | | | | [phone] | + +--------+ + + + + Encounter Details +--------+---------+ + + + | Date | Type | Department | Care Team | Description | +--------+---------+ + + + | 12/07/ | Office | [facility] | Zaria Walker | Retinal detachment, | | 2020 | Visit | [facility] at | MD [address] [address] | left; Severe | | | | [place] [address] | [address] | nonproliferative | | | | [address] | [facility] [place] | diabetic retinopathy | | | | [facility], [facility] | [address] | of right eye, | | | | floor [place], [place] | [phone] | without macular | | | | [address] | | edema, associated | | | | | | with type 2 diabetes | | | | | | mellitus (HCC) | +--------+---------+ + + + Social [...] Instructions Patient Instructions Zaria Walker MD - 12/08/2019 8:00 AM PDTFormatting of this not e [...] with the tip of the bottle 1. Assume a reading position for 45 to 50 minutes of every hour. You may temporarily stop p ositioning to eat and use the restroom. Sleep on left side. Do not lay flat on back. 2. Avoid heavy lifting (over 5-10 lbs), bending over (placing head below heart) or strainin g for 2 weeks. Avoid water in the eye. Shower backwards with eyes closed or with the eye shield over th e operated eye. Do not travel by air or go up above 2000 feet if there is a gas bubble in your eye. Place the metal shield over your eye with tape whenever you will be sleeping for 1 week. Call [phone] if you have: Worsening eye pain Worsening [...] difficult to to lerate. Realistic vision expectations: Gas: with a gas bubble filling your eye the vision will be limited. It may appear as if you are looking through a frosted window. As the bubble shrinks, you may see the smooth, b lack, round edge of the bubble that appear from the top of the vision. As it gets smaller, i t may break into smaller bubbles. Gas may last 2-8 weeks, depending on what type was used. Retinal surgery can change your glasses prescription. We usually recommend that you wait 2-3 months after surgery to get new glasses. documented in this encounter Progress Notes Zaria Walker MD - 12/08/2019 8:00 AM PDT [facility] Progress Note 12/08/2019 Assessment & Plan: 59 y.o. male Retinal detachment, left s/p PPV/SB/20% SF6 12/07/2019 Post-operative day #1 s/p PPV/SB/EL/AFX/20% SF6 OS 12/07/2019 - Patient doing well. Retina flat. IOP acceptable. - Start Pred forte 1 gtt qid, Ofloxacin 1 gtt qid, and Atropine 1 gtt bid in the operated e ye. - Discussed with patient gas/endophthalmitis/RD precautions and instructed patient to retur n to clinic sooner with signs/symptoms. - Wear eye shield x 1 week - No heavy lifting or strenuous activity x 2 weeks - Reviewed positioning instructions: no lying flat on back Severe nonproliferative diabetic retinopathy of right eye, without macular edema, associate d with type 2 diabetes mellitus (HCC) Possibly early PDR given NVE on FA. Light scatter laser performed OD in [place] yesterday Call for decreased vision, increased distortion, increased pain, new floaters or flashing l ights Follow up: Return in about 1 week (around 12/15/2019) for Dr. Ferguson . Chief Complaint: Post Op HPI (Edited by physician):POD#1 s/p PPV/EL/Afx/20% Sf6 OS 12/07/2019 (Flaxel/Aaron) Slept OK, did positioning. No pain today Current Outpatient Medications (Ophthalmic Medications) Medication Sig atropine Instill 1 drop into the left eye two times daily. ofloxacin Instill 1 drop into the left eye four times daily for 7 days. prednisoLONE acetate Instill 1 drop into the [...] severe pain). ibuprofen irbesartan-hydrochlorothiazide Levemir U-100 Insulin LORazepam take 1/2 to 1 tablet by mouth twice a day metFORMIN traMADoL Reviewed: Examination: See Ophthalmology Module Attestations: The attending physician is responsible for and agrees with the entire content of the note a nd has personally performed the HPI and the physical examination. Zaria Walker MD, PhD Fellow, Vitreoretinal Disease and Surgery [facility] documented in this encounter Miscellaneous Notes Assessment & Plan Note - Zaria Walker MD - 12/08/2019 4:54 PM PDTAssociated Problem (s): Severe nonproliferative diabetic retinopathy of right eye, without macular edema, assoc iated with type 2 diabetes mellitus (HCC)Possibly early PDR given NVE on FA. Light scatter l aser performed OD in [place] yesterday ssessment & Plan Note - Zaria Walker MD - 12/08/2019 4:53 PM PDTAsso ciaivan Problem(s): Retinal detachment, left s/p PPV/SB/20% SF6 12/07/2019Post-operative day # 1 s/p PPV/SB/EL/AFX/20% SF6 OS 12/07/2019 - Patient doing well. Retina flat. IOP acceptable. - Start Pred forte 1 gtt qid, Ofloxacin 1 gtt qid, and Atropine 1 gtt bid in the operated e ye. - Discussed with patient gas/endophthalmitis/RD precautions and instructed patient to retur n to clinic sooner with signs/symptoms. - Wear [...] Unspecified retinal detachment | + + | Severe nonproliferative diabetic retinopathy of right eye, without macular edema, | | associated with type 2 diabetes mellitus (HCC) | + + documented in this encounter"
--- OUTSIDE RECORDS SUMMARY | ~2020-02-04 | XMS | Encounter Summary ---
Demographics + + + | Address | [address] | | | [place] [address] | + + + | Home Phone | | + + + | Preferred Language | Unknown | + + + | Marital Status | | + + + | Gnosticist Affiliation | 1013 | + + + | Race | White | + + + | Ethnic Group | Not or | + + + Author + + + | Author | [facility] | | | and [place] | + + + | Organization | [facility] | | | and [...] [address] | | | | | [address] | | + + + + + | Leslie Lentz | ECON | Unknown | | + + + + + Care Team Providers + +------+ + | Care Receiving Specialist Name | Role | Phone | + +------+ + PCP | Unavailable | + +------+ + Encounter Details +--------+ + + + + | Date | Type | Department | Care Team | Description | +--------+ + + + + | 10/18/ | Episode | [facility] [place] | Jacqueline Doan, | | | 2018 | Changes | NEUROSURGERY [address] | DETENTION WORKER | | | | | [address] | | | | | | [place] | | | | | | [address] | | | | | | [phone] | | | +--------+ + + + [...]
--- OUTSIDE RECORDS SUMMARY | ~2020-02-04 | XMS | Encounter Summary ---
Demographics + + + | Address | [address] | | | [place] [address] | + + + | Home Phone [...] + + + | Author | [facility] | + + + | Organization | [facility] | + + + | Address | Unknown | + + + | Phone | Unavailable | + + + Support + + +---------+ + | Name | Relationship | Address | Phone | + + +---------+ + | Leslie Lentz | ECON | Unknown | | + + +---------+ + Care Team Providers + +------+ + | Care Supervisor [employer] Department Name | Role | Phone | + +------+ + | Paulo Rothman MD | PCP | | + +------+ + Encounter Details +--------+ + + + + | Date | Type | Department | Care Team | Description | +--------+ + + + + | 03/24/ | Document-Sc | UNKNOWN DEPARTMENT | Unknown . | | | 2016 | anned | [address] | | | | | | [address] | | | | | | [place] | | | | | | [address] | | | +--------+ + + + [...]
--- OUTSIDE RECORDS SUMMARY | ~2020-02-04 | XMS | Encounter Summary ---
Demographics + + + | Address | [address] | | | [place] [address] | + + + | Home Phone | | + + + | Preferred Language | Unknown | + + + | Marital Status | | + + + | Baptist Affiliation | 1013 | + + + | Race | White | + + + | Ethnic Group | Not or | + + + Author + + + | Author | [facility] | | | and [place] | + + + | Organization | [facility] | | [...] [address] | | | | | [address] | | + + + + + | Leslie Lentz | ECON | Unknown | | + + + + + Care Team Providers + +------+ + | Care Assistant Media Planner Name | Role | Phone | + +------+ + PCP | Unavailable | + +------+ + Encounter Details +--------+ + + + + | Date | Type | Department | Care Team | Description | +--------+ + + + + | 11/08/ | Abstract | [facility] | Nnao Connelly | | | 2018 | | SURGERY [address] | [address] | | | | | [place] | [address] [facility] | | | | | [address] | [place] [address] | | | | | [phone] | [phone] | | | | | | | [...] documented as of this encounter Progress Notes Abiola Ware CMA - 11/08/2017 9:12 AM PDTMRI Lumbar Spine on 08/25/17 at [facility] At the L5-S1 level, there has been [...] recent compression deformity is evident. Abdiel Dillard. documented in this en counter Plan of Treatment Not on filedocumented as of this encounter Visit Diagnoses Not on filedocumented in this encounter"
--- OUTSIDE RECORDS SUMMARY | ~2020-02-04 | XMS | Encounter Summary ---
Demographics + + + | Address | [address] | | | [place] [address] | + + + | Home Phone | | + + + | Preferred Language | Unknown | + + + | Marital Status | | + + + | [employer] Affiliation | CHR | + + + | Race | White | + + + | Ethnic Group | Not or | + + + Author + + + | Author | [facility] | + + + | Organization | [facility] | + + + | Address | Unknown | + + + | Phone | Unavailable | + + + Support + + +---------+ + | Name | Relationship | Address | Phone | + + +---------+ + | Leslie Lentz | ECON | Unknown | | + + +---------+ + Care Team Providers + +------+ + | Care Information Systems Consultant Name | Role | Phone | + +------+ + | DunnAggie archuleta SHYANN | PCP | | + +------+ + Reason for Visit + + + | Reason | Comments | + + + | Follow-up visit | | + + + Encounter Details +--------+---------+ + + + | Date | Type | Department | Care Team | Description | +--------+---------+ + + + | 12/31/ | Office | [facility] | Tammy Serrano, | Retinal detachment, | | 2020 | Visit | [facility] at | [address] | nuha (Primary Dx) | | | | [address] | [address] | | | | | [address] | [place], [place] | | | | | [address] | [address] | | | | | [place], [place] | [phone] | | | | | [id number] | [...] documented as of this encounter Progress Notes Zaria Walker MD - 01/01/2020 5:30 PM PDT [facility] Progress Note 01/01/2020 Assessment & Plan: 59 y.o. 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 - Risks and benefits of observation vs surgical repair were discussed - Informed consent obtained, case request placed - Post-op positioning possibilities discussed with pt - Schedule for PPV/EL/oil, left eye in the OR - NPO after midnight tonight--return for surgery tomorrow at 10AM - COVID testing today--sent for RAPID Discussed with patient that an untreated retinal [...] up: Return in about 1 day (around 01/02/2020) for surgery . Chief Complaint: Follow-up visit HPI (Edited by physician):Pt states that symptoms started on Tuesday. Pt states that visio n gradually worsened over the weekend. Pt states that vision is completely black OS. Denies flashes. Current Outpatient Medications (Ophthalmic Medications) Medication Sig atropine Instill 1 drop into the left eye two times daily. prednisoLONE acetate Instill 1 drop into the [...] mouth twice a day metFORMIN traMADoL Reviewed: Tobacco | Allergies | Meds | Med Hx | Surg Hx | Fam Hx | Soc Hx Examination: See Ophthalmology Module Attestations: The attending physician is responsible for and agrees with the entire content of the note a nd has personally performed the HPI and the physical examination. 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 - Risks and benefits of observation vs surgical repair were discussed - Informed consent obtained, case request placed - Post-op positioning possibilities discussed with pt - Schedule for PPV/EL/oil, left eye in the OR - NPO after midnight tonight--return for surgery tomorrow at 10AM - COVID testing today--sent for RAPID Discussed with patient that an untreated retinal [...] on filedocumented as of this encounter Results COVID-19, RAPID PCR (01/01/2020 [...] Fact sheet for patients: | | | https://www.[employer].gov/media/015696/download | | + + + + + + + + | Performing | Address | City/State/Zipcode | Phone Number | | Organization | | | | + + + + + | [facility] | [address] | [place] [address] | | | SERVICES, CORE | [address] | | | + + + + + documented in this encounter Visit Diagnoses + + | Diagnosis | + + | Retinal detachment, left - Primary Unspecified retinal detachment | + + documented in this encounter"
--- OUTSIDE RECORDS SUMMARY | ~2020-02-04 | XMS | Encounter Summary ---
Demographics + + + | Address | [address] | | | [place] [address] | + + + | Home Phone [...] [address] | | | | | [address] | | + + + + + | Leslie Lentz | ECON | Unknown | | + + + + + Care Team Providers + +------+ + | Care Bread Jockey Name | Role | Phone | + +------+ + PCP | Unavailable | + +------+ + Encounter Details +--------+ + + + + | Date | Type | Department | Care Team | Description | +--------+ + + + + | 12/27/ | Hospital | [facility] | Conversion | Chest discomfort | | 2012 | Encounter | [facility] | Transaction, | | | | | [address] | Provider Unknown | | | | | [address] [place], [place] | [phone] | | | | | [address] | | | | | | [phone] | | | +--------+ + + + [...] XR CHEST 2 VIEWS | Routin | 12/27/2012 | | Results for this | | | e | 3:40 PM | | procedure are in the | | | | PDT | | results section. | + +--------+ + + + documented in this encounter Results XR Chest 2 Vws (12/27/2012 3:40 PM PDT) + + | Specimen | + + | | + + + + + | Impressions | Performed At | + + + | 1. No acute disease, with other chronic findings, as above. | | | | | + + + + + + | Narrative | Performed At | + + + | HISTORY: Chest discomfort. TECHNIQUE: Dual energy frontal and | | | a lateral chest radiograph. COMPARISON: Chest films April 08, | | | 2009. FINDINGS: Again noted is postoperative changes involving | | | the base of the cervical spine. Chronic elevation of the right | | | hemidiaphragm is noted with chronic right basilar opacities likely | | | representing subsegmental atelectasis or scarring. Old healed left | | | sided rib fractures are again noted. No acute infiltrate or lung | | | mass is found. No pneumothorax or pleural effusion is seen. | | | Degenerative changes of the acromioclavicular joints and thoracic | | | spine are again noted. | | + + + + + | Procedure Note | + + | Arnaldo, Rad Conversion - 12/15/2018 11:02 PM PDT HISTORY:Chest discomfort. | | TECHNIQUE:Dual energy frontal and a lateral chest radiograph. COMPARISON:Chest films | | April 08, 2010. FINDINGS:Again noted is postoperative changes involving the base of | | the cervical spine. Chronic elevation of the right hemidiaphragm is noted with chronic | | right basilar opacities likely representing subsegmental atelectasis or scarring. Old | | healed left sided rib fractures are again noted. No acute infiltrate or lung mass is | | found. No pneumothorax or pleural effusion is seen. Degenerative changes of the | | acromioclavicular joints and thoracic spine are again noted. IMPRESSION: 1. No acute | | disease, with other chronic findings, as above. | |Again noted is postoperative changes involving the base of the cervical spine. Chronic elev ation of the right hemidiaphragm is noted with chronic right basilar opacities likely repres enting subsegmental atelectasis or | |scarring. Old healed left sided rib | |fractures are again noted. No acute infiltrate or lung mass is found. No pneumothorax or pl eural effusion is seen. Degenerative changes of the acromioclavicular joints and thoracic sp ine are again noted. | | | |IMPRESSION: | |1. No acute disease, with other chronic findings, as above. | | | | | + + documented in this encounter Visit Diagnoses + + | Diagnosis | + + | Chest discomfort Other chest pain | + + documented in this encounter"
--- OUTSIDE RECORDS SUMMARY | ~2020-02-04 | XMS | Encounter Summary ---
Demographics + + + | Address | [address] | | | [place] [address] | + + + | Home Phone | | + + + | Preferred Language | Unknown | + + + | Marital Status | | + + + | Gnosticism Affiliation | 1013 | + + + | Race | White | + + + | Ethnic Group | Not or | + + + Author + + + | Author | [facility] | | | and [place] | + + + | Organization | [facility] | | | [...] [address] [place] | | | | | [address] | | + + + + + | Leslie Lentz | ECON | Unknown | | + + + + + Care Team Providers + +------+ + | Care Pen Tester Name | Role | Phone | [...] | | | | | | | [place] ARTHDSIS | | | | | | | POST/POSTERO | | | | | | | LATRL/POSTIN | | | | | | | TERBODY | | | | | | | LUMBAR [place] | | | | | | | SPINE | | | | | | | FUSN,POST | | | | | | | TECH,EA | | | | | | | ADDNL SGMT | | | | | | | [place] LUMBAR | | | | | | [...] | | | | | | SEG [place] | | | | | | | LAMINEC/FACE | | | | | | | TECT/FORAMIN | | | | | | | ,EACH ADDNL | | | | | | | [place] INSJ | | | | | | | BIOMCHN DEV | | | | | | | INTERVERTEBR | | | | | | | AL DSC SPC | | | | | | | W/ARTHRD [place] | | | | | | | [...] + + | 11/11/ | Hospital | [facility] | Kai Gillespie MD | Gait abnormality | | 2017 - | Encounter | [facility] | [address] | (Primary Dx) | | | | [address] [place] | [place] [address] | | | 11/15/ | | [place] [address] | [phone] | | | 2016 | | [phone] | | | +--------+ + + + [...] + + + | Blood Pressure | 119/78 | 11/15/2016 7:00 AM | | | | | PDT | | + + + + + | Pulse | 94 | 11/15/2016 8:10 AM | | | | | PDT | | + + + + + | Temperature | 37.2 C (99 F) | 11/15/2016 7:00 AM | | | | | PDT | | + + + + + | Respiratory Rate | 16 | 11/15/2016 8:10 AM | | | | | PDT | | + + + + + | Oxygen Saturation | 94% | 11/15/2016 8:10 AM | | | | | PDT | | + + + + + | Inhaled Oxygen | - | - | | | Concentration | | | | + + + + + | Weight | 125.4 kg (276 lb 7.3 | 11/15/2016 4:53 AM | | | | oz) | [...] might be different from t johny original. [facility] DISCHARGE SUMMARY Patient Name: Lele Mustafa [...] month post op appointment before your appointment. [phone] [employer] [place] [address], [place] [id number]. All righ ts reserved. This information is [...] mg by mouth | | 0 | 01/25/20 | | | (CYMBALTA) [address] [...] were to fall". Requesting subacute rehab at [facility]. Formal referral sent. States his sister is planning on transporting him to [place]. Kayy rivas Tuesday discharge to [facility]. CM follow up with Godwin at facility 11/15 a.m. Electronically signed by: Anahi Moore RN 11/14/2016 11:08 1222; Rec'd call from Godwin. She will review referral and follow up with Nelly in the a.m. E lectronically signed by: Anahi Moore RN 11/14/2016 12:23 David Oconnor, - 11/14/2016 8:[address] [facility] NEUROSURGERY PROGRESS NOTE PATIENT NAME: Lele [...] Continuous Kai Gillespie MD 50 mL/hr at 542 lactulose liquid 30 mL 30 mL Oral [...] BID Sonido Lund PA-C 8.6 mg at 2042 ALLERGIES: Allergies Allergen Reactions Codeine Other (See [...] has no apparent deficits with short or halfway memory. MOTOR EXAM: Motor strength 4/5 right hip flex. 3/5 right dorsi/plantar flexion SENSORY EXAM: Sensory exam is stable 24 HOUR LABS: All Component Based Labs 11/12/16 0636 11/11/16 2028 11/11/16 0936 Glucose, POC 323(H) 331(H) 280(H) [...] Lawton PA-C - 11/13/2016 8:[address] [facility] NEUROSURGERY PROGRESS NOTE PATIENT NAME: Lele [...] has no apparent deficits with short or halfway memory. MOTOR EXAM: Motor strength 4/5 right [...] PA-C - 11/13/19 17 8:[address] 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 MOTOR EXAM: Motor strength is RT [...] Kai Gillespie MD - 11/11/2016 11:[address] [facility] AND [...] signed by: Kai Gillespie MD 11/11/2016 11:20 [facility] Sree Lawton PA-C - 10/20/2016 3:00 PM PDT Sree Cunha PA-C [address] [facility] [address] [place], [place] [id number] FAX: NEUROSURGERY HISTORY AND PHYSICAL EXAMINATION CHIEF [...] complications he spent 6 weeks in a assisted. He describes hearing a popping noise in [...] Surgical History: Procedure Laterality Date CHOLECYSTECTOMY 1998 [facility] HIP ARTHROPLASTY 2000 Dr. Castañeda HIP [...] has no apparent deficits with short or milk pickup driver memory. CRANIAL NERVES: II: Acuity is intact. [...] Intrinsics 5 5 Ulnar Intrinsics 5 5 After School Program Teacher Strength 5 5 Hip Flexion 5 5 [...] Young - 11/15/2016 4:34 PM PDTSpoke with [facility] regarding the referral which was faxed yesterday. [facility] is willing to accept this patient to day. Faxed Orders, PASRR, RX and Discharge Summary over to [facility]. Received the Communication r esult report; result ok. SNF packet complete. Met with Fredis regarding transportation. Fredis stated, his family requested that [facility] arrang e for transportation, that they don't feel comfortable transporting. This CM spoke with [facility] about arranging transportation. [facility] stated, the ride will be here at 1230. Staff and Fredis where notified of the lemon picker time. Fredis requested a Shower prior to leaving. This CM reported this to JOANIE Ortiz. Electronically signed by: Nelly Young 11/15/2016 16:38 eICU Note - Sonia Velasco RN - 11/15/2016 1:10 PM PDTReviewed discharge instructions, follow up appts. [facility]. No further questions. Discharged via with transport [...] mobility. [facility] [place]. 1-person assist this afternoon. Demonstrates red uced strength in RLE but has reciprocal gait, decreased hip extension and knee extension. N o knee buckling. Unsteady while standing @ toilet to manage clothing but no LOB. Will bene fit from continued rehab intervention @ next level of care. PRogressing towards goals. Occupational Therapy Discharge Recommendations are: Recommended discharge disposition: snf facility Post discharge occupational therapy recommendation: pt [...] while managing clothin g. Toileting, Level of [place]: minimal assist (75% patient effort), verbal cues required Assistive Device: grab bar, bedside commode Toileting Assess/Train, Position: sitting, supported standing Toileting Assess/Train, Impairments: strength decreased, impaired balance, postural control impaired Transfers Sit-Stand, Level of [place]: minimal assist (75% patient effort), verbal cues required Stand-Sit, Level of [place]: minimal assist (75% patient effort) Fam-Wrcuy-Pvv, Assistive Device: 2 wheeled walker (FWW) Toilet, Level of [place]: contact guard assist, verbal cues required Toilet, [...] STG Status continued at 11/15/2016 1234 STG [place] Level modified independent at 11/12/2016 1407 Toilet Transfer Goal Flowsheet Row Most Recent Value STG Status progressing at 11/15/2016 1234 STG [place] Level modified independent at 11/12/2016 1407 Electronically signed by: Vivian Doan OT, 11/15/2016 12:35 NF Transfer - Sonido Velasco PA-C - 11/15/2016 7:34 AM PDT LONGTERM FACILITY TRANSFER ORDERS Patient Name: Lele Mustafa Patient : 1960 Gender: male Date of Admission: 11/11/2016 Date of Discharge: 11/15/2016 Admitting Provider: Kai Gillespie MD Discharging Provider: Sonido Lund PA-C Consultants: PT /OT PCP: Paulo Rothman [facility] transferring to: [facility] Provider after transfer: Jose Miguel CODE STATUS: [x] Attempt CPR [] Do not resuscitate If patient is pulseless and not breathing, RN/STITCHER OPERATOR may pronounce . Advanced Directives included: [...] for this patient. Diet: [x] As tolerated PLASTICS PROCESS HAND may upgrade or downgrade diet as condition Indicates. [] RN may downgrade diet as indicated. Type: [x] Continue current diet of: Diet and Supplements Diet Diet consistent carb; Effective Now Number of Occurrences: Until Specified Order Questions: Type Diet consistent carb [] Other: Consistency/Precautions: [] Whole [] Thin Liquids [] Cut-up [] [place] Thick [] Advanced Chopped [] Honey Thickened [] Chopped [] Advanced Ground [] 1:1 feedings [] Ground/Pureed [] Other: Tube Feedings: [] PEG [] GT [] JT [] NGT [] Formula type: (Shellfish Farming Supervisor may change/substitute if indicated). [] Continuous Rate: [...] & Management for: Strength and mobility [] PLASTICS PROCESS HAND Evaluation &Management for: [] Other: Wound/Skin Care: [...] Needed/Frequency Diagnosis/Indication Follow up appointments and consultations: Dr Gillespie in 4 weeks Date/Time: Dr. Date/Time I [...] reasons to take this aka: FLEXERIL By: Sonido Lund PA-C Quant: 90 tablet gabapentin 300 [...] Sonido MOYER PA-C, certify that post hospital snf care is medically nece ssary on a continuing basis for any of the conditions for which he/she received care during this hospitalization. Check one: [x] Skilled [] Intermediate Additional Orders/Instructions: Physician's signature: 11/15/2016 7:34 [facility] USE ONLY: [] Admitting orders [...] have a BM yesterday. Plan is for [facility] in [place] today. Electronically signed by: LIZ REAVES RN 11/15/2016 5:29 lan of Care - Virgen Ritchie RN - 11/14/2016 7:58 PM PDTProblem: Patient Care Overview (Adult) Goal: Care Team Goals & Evaluation PROBLEM-RELATED GOALS: 1. rFedis will have his pain controlled at or [...] ma. lan of Care - David Malave, LICENSING DIRECTOR - 11/14/2016 2:26 PM PDTFormatting of this [...] Therapy Discharge Recommendations are: Recommended discharge disposition: snf facility, home with assist Post discharge physical [...] deminished once he was seated Level of [place]: contact guard assist, verbal cues required Assistive Device: 2 wheeled walker (FWW) Distance (feet): 10, 30 Transfers elevated bed; pt come to partical stand and lunges for walker; cues to come to complete sta nd and reach for walker to increase safety Bed-Chair, Level of [place]: minimal assist (75% patient effort), 2 person assist requ ired Chair-Bed, Level of [place]: not tested Yop-Hlvij-Vnj, Assistive Device: 2 wheeled walker (FWW) Sit-Stand, Level of [place]: minimal assist (75% patient effort) Stand-Sit, Level of [place]: minimal assist (75% patient effort) Haa-Rloxf-Lkf, Assistive Device: 2 wheeled walker (FWW) Safety Issues: balance decreased during turns, step length decreased Impairments: strength decreased, ROM decreased, pain Bed Mobility pt unable to come move from sidelying to sitting on his own; had to raise HOB past 60 degre es before he could get up without physical assist Assistive Device: bed rails, HOB elevated Supine to Sit, Level of [place]: moderate assist (50% patient effort) (pt had to eleva te HOB significantly) Sit to Supine, Level of [place]: (NT) Safety Issues: decreased use of legs for bridging/pushing Impairments: strength decreased, ROM decreased, pain, coordination impaired PT Goal Review Date Flowsheet Row Most Recent Value STG Review Date 11/17/16 at 11/12/2016 0933 Ngayfj-Iqh-Mcdozh Goal Flowsheet Row Most Recent Value STG Status progressing at 11/14/2016 1443 STG [place] Level independent at 11/12/2016 0933 Vkq-Vcgjm-Gne Goal Flowsheet Row Most Recent Value STG Status progressing at 11/14/2016 1443 STG [place] Level modified independent at 11/12/2016 0933 STG Assistive Device 2 wheeled walker (FWW) at 11/12/2016 0933 Gait Goal Flowsheet Row Most Recent Value STG Status progressing at 11/14/2016 1443 STG [place] Level modified independent at 11/12/2016 0933 STG Assistive Device 2 wheeled walker (FWW) at 11/12/2016 0933 STG Distance (feet) 150 at 11/12/2016 0933 Stair Goal Flowsheet Row Most Recent Value STG Status continued at 11/14/2016 1443 STG [place] Level contact guard assist at 11/12/2016 0933 [...] 11/14/2016 14:46 lan of Care - Negra Skinner OT - 11/14/2016 9:02 AM PDTFormatting of this note might be different from th geremias original. Problem: Patient Care Overview (Adult) Goal: [...] Therapy Discharge Recommendations are: Recommended discharge disposition: snf facility Post discharge occupational therapy recommendation: pt [...] pull fully on. LB Dressing, Level of [place]: minimal assist (75% patient effort) Assistive Device: sock-aid LB Dressing Assess/Train, Position: sitting Bed Mobility used bed features once sidelying to move into sitting. Assistive Device: bed rails, HOB elevated Supine to Sit, Level of [place]: stand by assist, verbal cues required Sit to Supine, Level of [place]: not tested Safety Issues: decreased use of legs for bridging/pushing Impairments: strength decreased, ROM decreased, pain, coordination impaired Transfers bed elevated. Sit-Stand, Level of [place]: minimal assist (75% patient effort) Stand-Sit, Level of [place]: minimal assist (75% patient effort) Aob-Iiiyl-Dbp, Assistive Device: 2 wheeled walker (FWW) Toilet, Level of [place]: contact guard assist Toilet, Assistive Device: 2 wheeled walker (FWW) Safety Issues: balance decreased during turns, step length decreased Impairments: strength decreased, ROM decreased, pain OT Goal Review Date Flowsheet Row Most Recent Value STG Review Date 11/19/16 at 11/12/2016 1407 LB Dressing Goal Flowsheet Row Most Recent Value STG Status continued, progressing at 11/14/2016 0950 STG [place] Level modified independent at 11/12/2016 1407 Toilet Transfer Goal Flowsheet Row Most Recent Value STG Status continued, progressing at 11/14/2016 0950 STG [place] Level modified independent at 11/12/2016 1407 Electronically [...] lan of Care - Vadim gomez, Jammie Billings PTA - 11/13/2016 2:16 PM PDTFormatting of this [...] d/c may be appropriate or in home child daycare worker s. Physical Therapy Discharge Recommendations are: Recommended discharge disposition: snf facility, home with assist Post discharge physical [...] painful and lab orious today. Level of [place]: contact guard assist Assistive Device: 2 wheeled walker (FWW) Distance (feet): 20 Transfers Pt is 6'4", height of bed elevated to ease transition Sit-Stand, Level of [place]: minimal assist (75% patient effort) Stand-Sit, Level of [place]: minimal assist (75% patient effort) Vhi-Hscho-Ufp, Assistive Device: 2 wheeled walker (FWW) Safety Issues: balance decreased during turns, step length decreased Impairments: strength decreased, ROM decreased, pain Bed Mobility Pt struggled with logroll, aware of technique, but needing physical and mechanical assist f or rising to sitting position and for bilateral LE's BTB Assistive Device: bed rails, HOB elevated Supine to Sit, Level of [place]: stand by assist, verbal cues required Sit to Supine, Level of [place]: stand by assist, verbal cues required Safety [...] STG Review Date 11/17/16 at 11/12/2016 0933 Mfrtmf-Ldz-Udjqyw Goal Flowsheet Row Most Recent Value STG Status progressing at 11/13/2016 1407 STG [place] Level independent at 11/12/2016 0933 Zks-Ysbnp-Qbn Goal Flowsheet Row Most Recent Value STG Status progressing at 11/13/2016 1407 STG [place] Level modified independent at 11/12/2016 0933 STG Assistive Device 2 wheeled walker (FWW) at 11/12/2016 0933 Gait Goal Flowsheet Row Most Recent Value STG Status progressing at 11/13/2016 1407 STG [place] Level modified independent at 11/12/2016 0933 STG Assistive Device 2 wheeled walker (FWW) at 11/12/2016 0933 STG Distance (feet) 150 at 11/12/2016 0933 Stair Goal Flowsheet Row Most Recent Value STG Status continued at 11/13/2016 1407 STG [place] Level contact guard assist at 11/12/2016 0933 [...] Goal Evaluation: lan of Care - Negra Kowalski OT - 11/13/2016 12:34 PM PDTFormatting of [...] d/t diaphoresis and report of extreme pain. [employer] System to shelly/doff shorts LB Dressing, Level of [place]: contact guard assist, verbal cues required, set up requ ired Assistive Device: waiter/waitress dining car LB Dressing Assess/Train, Position: sitting Bed Mobility Needs physcial assist for log roll, utilized bed features to ease transition. Assistive Device: bed rails, HOB elevated Supine to Sit, Level of [place]: set up required, verbal cues required, tactile cues r equired, moderate assist (50% patient effort) Sit to Supine, Level of [place]: moderate assist (50% patient effort), verbal cues req uired, tactile cues required, 2 person assist required Safety Issues: decreased use of legs for bridging/pushing Impairments: strength decreased, motor control impaired, coordination impaired, impaired ba sarika, pain Transfers bed elevated piror to standing. Bed-Chair, Level of [place]: minimal assist (75% patient effort), 2 person assist requ ired Chair-Bed, Level of [place]: not tested Xqi-Rgrhm-Rsj, Assistive Device: 2 wheeled walker (FWW) OT Goal Review Date Flowsheet Row Most Recent Value STG Review Date 11/19/16 at 11/12/2016 1407 LB Dressing Goal Flowsheet Row Most Recent Value STG Status continued at 11/13/2016 1233 STG [place] Level modified independent at 11/12/2016 1407 Toilet Transfer Goal Flowsheet Row Most Recent Value STG Status continued at 11/13/2016 1233 STG [place] Level modified independent at 11/12/2016 1407 Electronically [...] he lives with his , Bina, in [place], [place], and Maggi, his 's si ster [...] his PCP is Paulo Rothman MD, in [place] and [facility] is his pharmacy. He is very interested in home health support and feels he will need this for awhile. Sticky note left with MD requesting a HH order at discharge. HH orders will need to be faxed to [facility] at [phone] with call to them a p# [phone]. CM to follow for the HH.Electronically signed by: Lulu May RN 11/12/2016 16:52 lan of Care - Gabby Arellano OT - 11/12/2016 11:15 AM PDTFormatting of this note might be different from the jose antonio anjelica. Problem: Patient Care Overview (Adult) Goal: Care [...] seated EOB c SBA. Grooming, Level of [place]: stand by assist Grooming Assess/Train, Position: sitting Grooming Assess/Train, Impairments: ROM decreased, decreased flexibility, strength decrease d, impaired balance Cognitive No concerns identified. Bed Mobility Assistive Device: bed rails, HOB elevated Supine to Sit, Level of [place]: moderate assist (50% patient effort), set up required , verbal cues required, tactile cues required, 2 person assist required Sit to Supine, Level of [place]: moderate assist (50% patient effort), verbal cues [...] STG Status new at 11/12/2016 1407 STG [place] Level modified independent at 11/12/2016 1407 Toilet Transfer Goal Flowsheet Row Most Recent Value STG Status new at 11/12/2016 1407 STG [place] Level modified independent at 11/12/2016 1407 Electronically signed by: Julissa Arellano OT, 11/12/2016 14:08 lan of Care - Nickie Garber PT - 11/12/2016 9:45 AM PDTFormatting of [...] right LE weakness and pt's large size. Lele will benefit from therapeutic intervention to [...] Movt's painful and laborious, diaphoretic Level of [place]: contact guard assist, 2 person assist required, verbal cues required Assistive Device: 2 wheeled walker (FWW) Distance (feet): 8' Transfers Pt is 6'4", height of bed elevated to ease transition Sit-Stand, Level of [place]: 2 person assist required, minimal assist (75% patient ef fort), set up required, verbal cues required, tactile cues required (height of bed elevated) Stand-Sit, Level of [place]: contact guard assist, 2 person assist required, verbal cu es required Ucd-Pmten-Ofi, Assistive Device: 2 wheeled walker (FWW) Safety [...] HOB elevated Supine to Sit, Level of [place]: moderate assist (50% patient effort), set up require d, verbal cues required, tactile cues required Sit to Supine, Level of [place]: moderate assist (50% patient effort), verbal cues [...] grossly 5/5 R LE Strength: grossly 4/5 [facility] Turning over in bed: a [...] steps with a railing: dependent/unable TOTAL - [facility] : 8 Unable / dependent = 1 A lot / modA = 2 A little / Janell = 3 None / independent = 4 Completed the [facility] Activity Measure for Post Acute Care (-PAC) "6 Clicks" [facility] Mobility Inpatient Short Form. This version of the AM-PAC is an assessment tool used to measure a person's level of disability in performing basic mobility tasks. This patient's score indicates a performance of 86.62% impairment in the functioning of basic mobility. Raw Score - Functional Limitation % (for [facility]) - "Severity Modifier" CN [...] STG Review Date 11/17/16 at 11/12/2016 0933 Danibg-Zaw-Hswplg Goal Flowsheet Row Most Recent Value STG Status new at 11/12/2016 0933 STG [place] Level independent at 11/12/2016 0933 Gva-Phxed-Bwa Goal Flowsheet Row Most Recent Value STG Status new at 11/12/2016 0933 STG [place] Level modified independent at 11/12/2016 0933 STG Assistive Device 2 wheeled walker (FWW) at 11/12/2016 0933 Gait Goal Flowsheet Row Most Recent Value STG Status new at 11/12/2016 0933 STG [place] Level modified independent at 11/12/2016 0933 STG Assistive Device 2 wheeled walker (FWW) at 11/12/2016 0933 STG Distance (feet) 150 at 11/12/2016 0933 Stair Goal Flowsheet Row Most Recent Value STG Status new at 11/12/2016 0933 STG [place] Level contact guard assist at 11/12/2016 0933 [...] 9:39 lan of Care - Serenity Gama, STEEL LAYER - 11/12/2016 5:50 AM PDTFormatting of this [...] 11/12/2016 5:06 lan of Care - Virgen Ricthie RN - 11/11/2016 9:32 PM PDTProblem: Patient [...] except numbness in his left lower extremity. Trouble Locator Test Desk were strong, Dorsi flexion was strong and [...] Note Lele Mustafa 56 y.o. male 1960 [id number] Proc. Date 11/11/2016 Preop Dx Spondylolisthesis of [...] General Surgeon Kai Gillespie MD - Primary Manager Intelligence AYALA Thompson-Natasha EBL 325 Findings L3-S1 osteopenia. [...] PEEK spacer was prepared filling it with [place]/BMP and then tamping it into the interspace [...] PEEK spacer was prepared filling it with [place]/BMP and then tamping it into the interspace [...] obtained from th e drilling and cancellous chps/[place] with bone marrow aspirate were packed in [...] signed by: Kai Gillespie MD 11/11/2016 17:19 [facility] rief Op Note - Kong Gillespie MD - 11/11/2016 5:19 PM PDTFormatting of this note might be different from the origin al. Brief Operative Note Lele Mustafa 56 y.o. male 1960 [id number] Proc. Date 11/11/2016 Preop Dx Spondylolisthesis of [...] General Surgeon Kai Gillespie MD - Primary Manager Intelligence Sonido Lund PA-C EBL 325 Findings L3-S1 osteopenia. Failed fusion L4-S1. Spondylolisthesis. Subsidence at L5 due to soft bone. Complications none Specimens * No specimens in log * Drains ELMER Electronically signed by: Kai Gillespie MD 11/11/2016 17:19 [facility] MD at 017 [...] | | [place] | | | n [place] | | | | | | FrameE [...] | | [place] | | | n [place] | +---+--------+ + +--------+ +---+ + | [...] + | [facility] | [address] | [place] | [phone] | | [facility] | | [address] | | | - LABORATORY | | [...] [address] | [place] | [phone] | | [facility] | | [address] | | | - LABORATORY | | [...] | | | POC | | | [facility] | | | | | | MEDICAL [...] [address] | [place] | [phone] | | [facility] | | [address] | | | - LABORATORY | | [...] + | [facility] | [address] | [place] | [phone] | | [facility] | | [address] | | | - LABORATORY | | [...] | | POC | | | April [place] | | | | | | [...] + | [facility] | [address] | [place] | [phone] | | [facility] | | [address] | | | - LABORATORY | | [...] ST. | [address] | [place], [place] | [phone] | | [facility] | | [address] | | | - LABORATORY | | [...] [address] | [place] | [phone] | | [facility] | | [address] | | | - LABORATORY | | [...] | [address] | [address] | [place] | [phone] | | [facility] | | [address] | | | - LABORATORY | | [...] | [address] | [address] | [place], [place] | [phone] | | [facility] | | [address] | | | - LABORATORY | | [...] [address] | [place] | [phone] | | [facility] | | [address] | | | - LABORATORY | | [...] + | [facility] | [address] | [place] | [phone] | | [facility] | | [address] | | | - LABORATORY | | [...] [address] | [place] | [phone] | | [facility] | | [address] | | | - LABORATORY | | [...] [address] | [place] | [phone] | | [facility] | | [address] | | | - LABORATORY | | [...] | [address] | [place] | [phone] | | [facility] | | [address] | | | - LABORATORY | | [...] | lumbar spine. Posterior pedicle screw and halyee and interbody fusion | | | has [...] interbody fusion. Dictated and Signed by: Jose | | | MD Lawrence Electronically signed: 11/12/2016 [...] + | [facility] | [address] | [place] | [phone] | | [facility] | | [address] | | | - LABORATORY | | | | + + + + + documented in this encounter Visit Diagnoses + + | Diagnosis | + + | Gait abnormality - Primary Abnormality of gait | + + | Obesity (BMI 30-39.9) Obesity, unspecified | + + | Anxiety Anxiety state, unspecified | + + | Depression Depressive disorder, not elsewhere classified | + + | Graves disease Toxic diffuse goiter without mention of thyrotoxic crisis or storm | + + | Diabetes type 2, controlled (HCC) Type II or unspecified type diabetes mellitus | | without mention of complication, not stated as uncontrolled | + + | Obstructive sleep apnea syndrome Obstructive sleep apnea (adult) (pediatric) | + + documented in this encounter [...] | | | | | Starting Phyllis 7/20/17 at 1809, | | | | | [...] HOURS PRN, Itching, | | | Starting [facility] 11/11/16 at 1809, | | | Oral route is preferred., | | | Post-op/Phase II | | + +---+ | | | + +---+ | diphenhydrAMINE (BENADRYL) | | | injection 12.5 mg 12.5 mg, | | | Intravenous, EVERY 4 HOURS PRN, | | | Itching, Starting [facility] 11/11/16 at | | | 1809, Oral route is preferred., | | | Post-op/Phase II | | + +---+ | | | + +---+ | diphenhydrAMINE (BENADRYL) | | | tablet 25 mg 25 mg, Oral, EVERY | | | 4 HOURS PRN, Itching, Starting | | | [facility] 11/11/16 at 1809, Oral route | | | is preferred., Post-op/Phase II | | + +---+ | | | + +---+ + +-------+ +--------+---+---+ | docusate sodium (COLACE) | Given | 11/16/19 | 100 mg | | | | capsule 100 mg 100 mg, Oral, 2 | | 17 8:54 | | | [...] | | DAILY, First dose on Phyllis 11/11/16 | | AM PDT | [...] | | +---+---+ + +-------+ +--------+---+---+ | fentaNYL (PF) injection 25-50 | Given | 11/12/19 | 25 mcg | | | | mcg 25-50 mcg, Intravenous, | | 17 5:20 | | | | | EVERY 5 MIN PRN, Pain, Starting | | PM PDT | | | | | Phyllis 11/11/16 at 1615, Maximum | | | | | | | total dose 250 mcg. PACU IV | | | | | | | Narcotic Priority: Only use | | | | | | | fentanyl for immediate post-op | | | | | | | pain (one dose) or breakthrough | | | | | | | pain when any other IV narcotics | | | | | | | ordered have been ineffective (if | | | | | | | ordered). If both morphine and | | | | | | | hydromorphone are ordered, use | | | | | | | morphine first, and use | | | | | | | hydromorphone if morphine | | | | | | | ineffective., Recovery/Phase I | | | | | | + +-------+ +--------+---+---+ +-------+ +--------+---+---+ | Given | 11/12/19 | 25 mcg | | | | | 17 4:45 | | | | | | PM PDT | | | | +-------+ +--------+---+---+ +---+---+ | | | +---+---+ + +-------+ +--------+---+---+ | gabapentin (NEURONTIN) capsule | Given | 11/16/19 | 600 mg | | | | 600 mg 600 mg, Oral, 3 TIMES | | 17 9:10 | | | | | DAILY, First dose on [facility] 11/11/16 | | AM PDT | [...] | | DAILY, First dose on Phyllis 11/11/16 | | AM PDT | [...] +--------+---+---+ | HYDROmorphone (DILAUDID) | Given | 11/12/19 | 0.3 mg | | | | injection 0.2-0.5 mg 0.2-0.5 mg, | | 17 5:30 | | | | | Intravenous, EVERY 5 MIN PRN, | | PM PDT | | | | | Pain, Starting Phyllis 11/11/16 at | | | | | | | 1615, Maximum total dose 4 mg. | | [...] +-------+ +--------+---+---+ | Given | 11/12/19 | 0.5 mg | | | | | 17 5:10 | | | | | | PM PDT | | | | +-------+ +--------+---+---+ | Given | 11/12/19 | 0.5 mg | | | | | 17 5:05 | | | | | | PM [...] | | | | Pain, Starting Phyllis 11/11/16 at | | | | | [...] | insulin lispro (humaLOG | Given | 11/12/19 | 6 Units | | Abdomen- | | KWIKPEN) 100 units/mL injection | | 17 8:34 | | | RUQ | | (pen) 0-12 Units 0-12 Units, | | PM PDT | | | | | Subcutaneous, 4 TIMES DAILY WITH | | | | | | | MEALS & NIGHTLY, First dose on | | | | | | | Phyllis 11/11/16 at 2100, CORRECTION | | | | | | | SCALE: Blood Glucose (BG) < | | | | | | | 150: None BG | | | | | | | 150-200: DAY: 2 units. NIGHT: | | | | | | | 0 units BG 201-250: DAY: 4 | | | | | | | units. NIGHT: 2 units BG | | | | | | | 251-300: DAY: 6 units. NIGHT: | | | | | | | 4 units BG 301-350: DAY: 8 | | | | | | | units. NIGHT: 6 units BG | | | | | | | 351-400: DAY: 10 units. NIGHT: 8 | | | | | | | units BG > 400 : DAY: 12 | | | | | | | units. NIGHT: 10 units | | | | | | | AND CALL PROVIDER | | | | | | | , Use DAY DOSE for doses | | | | | | | scheduled: AC, NPO, Daytime | | | | | | | 4245-8294 Use NIGHT DOSE for | | | | | | | doses scheduled: HS, 3AM, | | | | | | | Nighttime 3950-6864, | | | | | | | [...] | | | | | | | 5811-3379 Use NIGHT DOSE for | | | | | | | doses scheduled: HS, 3AM, | | | | | | | Nighttime 0426-6527, | | | | | | + [...] 8:56 | | | | | on Tue11/11/16 at 2100, If | | AM PDT [...] +---+---+ | | | +---+---+ + +---------+ +--------+--------+---+ | methocarbamol (ROBAXIN) 750 mg | New Bag | 11/13/19 | 750 mg | 143.3 | | | in sodium chloride 0.9% 100 mL | | 17 5:43 | | mL/hr | | | IVPB 750 mg, Intravenous, | | AM PDT | | | | | Administer over 45 Minutes, EVERY | | | | | | | 6 HOURS (4 times per day), First | | | | | | | dose on Phyllis 11/11/16 at 1800, For | | | | | | | 3 doses, Post-op/Phase II | | | | | | + +---------+ +--------+--------+---+ +---------+ +--------+--------+---+ | New Bag | 11/13/19 | 750 mg | 143.3 | | | | 17 12:31 | | mL/hr | | | | AM PDT | | | | +---------+ +--------+--------+---+ | New Bag | 11/12/19 | 750 mg | 143.3 | | | | 17 5:16 | | mL/hr | | | | PM PDT | | | | +---------+ +--------+--------+---+ +---+---+ | | | +---+---+ + +-------+ [...] 3:49 | | | | | PRN, Constipation, Starting Phyllis | | PM PDT | [...] | | | | First dose on Tue11/11/16 at | | AM PDT | | [...] +---+---+ | | | +---+---+ + +---------+ +-------+--------+---+ | vancomycin 1.5 g in sodium | New Bag | 11/13/19 | 1.5 g | 176.7 | | | chloride 0.9% 250 mL IVPB 1.5 g, | | 17 1:19 | | mL/hr | | | Intravenous, Administer over 90 | | AM PDT | | | | | Minutes, EVERY 12 HOURS INTERVAL, | | | | | | | First dose on Tue11/12/16 at | | | | | | | 0000, For 1 dose, Start 12 hours | | | | | | | after previous dose. Last dose | | | | | | | to be given within 24 hours of | | | | | | | surgery end time. Keep in | | | | | | | refrigerator., Post-op/Phase II, | | | | | | | Indications: Surgical Prophylaxis | | | | | | + +---------+ +-------+--------+---+ +---+---+ | | | +---+---+ documented in this encounter
--- OUTSIDE RECORDS SUMMARY | ~2020-02-04 | XMS | Encounter Summary ---
Demographics + + + | Address | [address] | | | [place] [address] | + + + | Home Phone | | + + + | Preferred Language | Unknown | + + + | Marital Status | | + + + | Restorationist Affiliation | CHR | + + + | Race | White | + + + | Ethnic Group | Not or | + + + Author + + + | Author | [facility] | + + + | Organization | [facility] | + + + | Address | Unknown | + + + | Phone | Unavailable | + + + Support + + +---------+ + | Name | Relationship | Address | Phone | + + +---------+ + | Leslie Lentz | ECON | Unknown | | + + +---------+ + Care Team Providers + +------+ + | Care Construction Trades Teacher Name | Role | Phone | + +------+ + | Aggie Dunn BEHAVIORAL GENETICIST | PCP | | + +------+ + Encounter Details +--------+ + + + + | Date | Type | Department | Care Team | Description | +--------+ + + + + | 01/01/ | Pharmacy | [facility] | | | | 2020 | Visit | [address] [place] [address] | | | | | | [place] [address] | | | | | | [phone] | | | +--------+ + + + [...]
--- OUTSIDE RECORDS SUMMARY | ~2020-02-04 | XMS | Encounter Summary ---
Demographics + + + | Address | [address] | | | [place] [address] | + + + | Home Phone | | + + + | Preferred Language | Unknown | + + + | Marital Status | | + + + | Islam Affiliation | 1013 | + + + [...] [place] | | | | | [address] | | + + + + + | Leslie Lentz | ECON | Unknown | | + + + + + Care Team Providers + +------+ + | Care Project Program Manager Name | Role | Phone | + +------+ + PCP | Unavailable | + +------+ + Encounter Details +--------+ + + + + | Date | Type | Department | Care Team | Description | +--------+ + + + + | 10/19/ | Orders Only | [facility] | Kai Gillespie MD | Essential | | 2017 | | NEUROSURGERY [address] | [address] | hypertension; | | | | [address] | [place] [address] | Diabetes mellitus of | | | | [place] | [phone] | other type with | | | | [address] | | complication, | | | | [phone] | | unspecified long | | | | | | term insulin use | | | | | | status ([facility]); Lumbar | | | | [...] as of this encounter Results XR Chest 2 VW [...] + | [facility] | [address] | [place], [place] | [phone] | | [facility] | | [address] | | | - IMAGING | | | | + + + + + ECG 12 lead (10/20/2016 5:03 PM PDT) [...] MD | | | | | | ([id number]) on 10/21/2016 | | | | | [...] [address] | [place] | [phone] | | [facility] | | [address] | | | - LABORATORY | | [...] 15 | 7 - 18 mg/dL | [facility] | | | | | [facility] | | [facility] | [facility] | | | | | | [facility] - | | | | | | LABORATORY | | + + + + + + | Creatinine | 0.66 | 0.60 - 1.30 | [facility] | | | | | mg/dL | [facility] | | | | | | MED[facility] | | | | | | CENTER - | | | | | | LABORATORY | | + + + + + + | eGFR, | >60Comment: GLOMERULAR | >=60 | [facility] | | | non- | FILTRATION | mL/min/1.73m2 | [facility] | | | [place] | RATE,ESTIMATED | | MEDICAL | | | | mL/min/1.68m4Wahu than | | CENTER - | | [...] | | | | | mg/dL | [facility] | | | | | | MEDICAL | | | | | | CENTER - | | | | | | LABORATORY | | + + + + + + | BUN/Creatin | 22.7 | | [facility] | | | ine Ratio | | | [facility] | | [...] [address] | [place] | [phone] | | [facility] | | [address] | | | - LABORATORY | | | | + + + + + documented in this encounter Visit Diagnoses + + | Diagnosis | + + | Essential hypertension Unspecified essential hypertension | + + | Diabetes mellitus of other type with complication, unspecified jail insulin use | | status | + [...]
--- OUTSIDE RECORDS SUMMARY | ~2020-02-04 | XMS | Encounter Summary ---
Demographics + + + | Address | [address] | | | [place] [address] | + + + | Home Phone | | + + + | Preferred Language | Unknown | + + + | Marital Status | | + + + | Shinto Affiliation | 1013 | + + + | Race | White | + + + | Ethnic Group | Not or | + + + Author + + + | Author | [facility] | | | and [place] | + + + | Organization | [facility] | | [...] [place] | | | | | [address] | | + + + + + | Leslie Lentz | ECON | Unknown | | + + + + + Care Team Providers + +------+ + | Care Cutting Machine Operator Helper Name | Role | Phone | + +------+ + PCP | Unavailable | + +------+ + Reason for Visit + +--------+ + | Reason | Onset | Comments | | | Date | | + +--------+ + | Procedure | 11/09/ | | | | 2016 | | + +--------+ + Encounter Details +--------+ + + + + | Date | Type | Department | Care Team | Description | +--------+ + + + + | 11/09/ | Telephone | [facility] | Kai Gillespie MD | Procedure | | 2016 | | NEUROSURGERY [address] | [address] | | | | | [facility] [address] | [place] [address] | | | | | [place] | [phone] | | | | | [address] | | | | | | [phone] | | | +--------+ + + + [...] this encounter Miscellaneous Notes Telephone Encounter - Mimi Nayak Medical Assistant - 11/10/2016 9:09 AM PDTSam ca lled in and is also advised of the instructions. elephone Encounter - Mimi Nayak Medic al Steaming Machine Operator - 11/10/2016 8:40 AM PDTSpoke to patients , she verbalized understanding o f this and will also tell the patient. elephone Encounter - Dorene Rogers - 11/10/2016 8:0 6 AM PDTPatient called returning Mimi's call, Please call back. elephone Encounter - Mimi Nayak Medica l Steaming Machine Operator - 11/09/2016 4:21 PM PDTLeft voicemail requesting callback. All presurgical check-in instructions given Surgery date: 11/11/16 Check-in Time: 915am (OR Schedule states procedure start time 1115am) No solids or liquids after midnight the night before surgery. Follow the cleansing instructions provided beginning the night before surgery after you esme wer or bathe. No showering the morning of surgery. Please do not wear jewelry, contact lenses, nail sinhala (on fingers or toes), or make-up to surgery check-in. If you have dentures, hearing aids, or glasses please bring the cases with you to check-in. Medications instructions: Aspirin, ibuprofen, methocarbamol, metformin, robaxin all stoppe d 7 days prior to surgery. Hold insulins the morning of surgery. Surgical Admit Anticipated Disposition reviewed and correct: "Yes Confirmation of procedure/approval: "Yes". [facility] umented in this encounter Plan of Treatment Not on filedocumented as of this encounter Visit Diagnoses Not on filedocumented in this encounter
--- OUTSIDE RECORDS SUMMARY | ~2020-02-04 | XMS | Encounter Summary ---
Demographics + + + | Address | [address] | | | [place] [address] | + + + | Home Phone [...] [place] | | | | | [address] | | + + + + + | Leslie Lentz | ECON | Unknown | | + + + + + Care Team Providers + +------+ + | Care Tank Pumper Panelboard Name | Role | Phone | + +------+ + PCP | Unavailable | + +------+ + Reason for Visit + + + | Reason | Comments | + + + | Pre-op Exam | Back | + + + Encounter Details +--------+---------+ + + + | Date | Type | Department | Care Team | Description | +--------+---------+ + + + | 10/20/ | Office | [facility] | Sree Cunha | Lumbar spinal | | 2017 | Visit | NEUROSURGERY [address] | D, [facility] [address] | stenosis (Primary | | | | [address] | [address] | Dx); Osteoarthritis | | | | [place], [place] | [place] | of spine with | | | | [address] | [address] | radiculopathy, | | | | [phone] | | lumbar region; | | | | | | Lumbar foraminal | | | | | | stenosis | +--------+---------+ + + + Social History [...] + + + | Blood Pressure | 156/102 | 10/20/2016 2:56 PM | | | | | PDT | | + + + + + | Pulse | 81 | 10/20/2016 2:56 PM | | | | | PDT [...] + + + + | Weight | 132 kg (291 lb) | 10/20/2016 2:56 PM | | | | | PDT | | + + + + + | Height | 193 cm (6' 4") | 10/20/2016 2:56 PM | | | | | PDT | | + + + + + | Body Mass Index | 35.42 | 10/20/2016 2:56 PM | | | | | PDT | | + + + + + documented in this encounter Patient Instructions Patient Instructions Sree Cunha PA-C - 10/20/2016 3:00 PM PDTPlease remember not to take any anti-inflammatories within 7 days of surgery. This includes ibuprofen, Motrin, Advil, aspirin, naproxen, and Aleve. You may have a small glass of water on the morning of surgery to take your normal morning medications. Otherwise, nothing to eat or drink after m idnight. If you have any change in your health status, please call and let us know. Lastly, If you have any questions, please feel free to give our office a call. Otherwise, we will see you on the morning of surgery. documented in this encounter Progress Notes Nano Aragon RN - 10/20/2016 3:00 PM PDTPatient in office for pre op appointment. Jaclyn ent advised at this time to stop: ibuprofen (7 days prior/90 days after); aspirin, methocarb elvi (7 days prior); metformin (3 days prior); irbesartan-HCTZ (24 hours prior); insulins (D o not take morning of surgery). Patient verbalized understanding. All questions answered at this time. I Nano Aragon RN witnessed the patient leaving the office with a LSO which was provided by me on behalf of [facility]. Nano Aragon RN Sree Lawton P A-C - 10/20/2016 3:00 PM PDT Sree Cunha PA-C [address] [facility], [address] [place], [place] [id number] FAX: NEUROSURGERY HISTORY AND PHYSICAL EXAMINATION CHIEF [...] complications he spent 6 weeks in a detention. He describes hearing a popping noise in [...] Surgical History: Procedure Laterality Date CHOLECYSTECTOMY 1998 [facility] HIP ARTHROPLASTY 2000 Dr. Castañeda [...] has no apparent deficits with short or intermediate designer memory. CRANIAL NERVES: II: Acuity is intact. [...] Intrinsics 5 5 Ulnar Intrinsics 5 5 Freelance Writer Strength 5 5 Hip Flexion 5 5 [...] Sleep apnea Vision disorder deficit PLAN: Lele Montez Ramsey presented today, and it was a pleasure [...] 08/26/2016 17:35 documented in th is encounter Plan of Treatment Not on filedocumented as of this encounter Visit Diagnoses + + | Diagnosis | + + | Lumbar spinal stenosis - Primary Spinal stenosis, lumbar region, without neurogenic | | claudication | + + | Osteoarthritis of spine with radiculopathy, lumbar region | + + | Lumbar foraminal stenosis Spinal stenosis, lumbar region, without neurogenic | | claudication | + + documented in this encounter
--- OUTSIDE RECORDS SUMMARY | ~2020-02-04 | XMS | Encounter Summary ---
Demographics + + + | Address | [address] | | | [place] [address] | + + + | Home Phone | | + + + | Preferred Language | Unknown | + + + | Marital Status | | + + + | Jainism Affiliation | CHR | + + + | Race | White | + + + | Ethnic Group | Not or | + + + Author + + + | Author | [facility] | + + + | Organization | [facility] | + + + | Address | Unknown | + + + | Phone | Unavailable | + + + Support + + +---------+ + | Name | Relationship | Address | Phone | + + +---------+ + | Leslie Lentz | ECON | Unknown | | + + +---------+ + Care Team Providers + +------+ + | Care Drycleaner Name | Role | Phone | + +------+ + | Paulo Rothman MD | PCP | | + +------+ + Reason for Referral (Routine) +--------+--------+ + + + + | Status | Reason | Specialty | Diagnoses / | Referred By | Referred To | | | | | Procedures | Contact | Contact | +--------+--------+ + + + + | | | | | Brannon | | | | | | | Matt | | | | | | | Rob Pierre | | | | | | | [address] | | | | | | [address] | | | | | | | [place], [place] | | | | | | | [address] | | | | | | | Phone: | | | | | | | [phone] | | | | | | | Fax: | | | | | | | [phone] | | +--------+--------+ + + + + Consultation (Routine) +--------+--------+ + + + + | Status | Reason | Specialty | Diagnoses / | Referred By | Referred To | | | | | Procedures | Contact | Contact | +--------+--------+ + + + + | Closed | | Pain | Diagnoses | Punsalan, | Childcare Attendant [facility] | | | | Management | Chronic | Matt | [address] | | | | | radicular | Rob R, | [address] | | | | | low back | MD [address] | for [facility] | | | | | pain | [address] | and Healing, | | | | | Deconditione | [place], [place] | Building | | | | | d low back | [address] | [address] | | | | | Osteomyeliti | Phone: | [place], [place] | | | | | s of spine | [phone] | [address] | | | | | (HCC) | Fax: | Phone: | | | | | Pseudoarthro | [phone] | [phone] | | | | | sis of | | Fax: | | | | | lumbar spine | | [phone] | | | | | S/P lumbar [...] Comments | + + + | New patient | L spine | | consultation | | + + + Intake Referral (Routine) +--------+--------+ + + + + | Status | Reason | Specialty | Diagnoses / | Referred By | Referred To | | | | | Procedures | Contact | Contact | +--------+--------+ + + + + | Closed | | Orthopedics | Diagnoses | Stephan, | Brannon, | | | | | Spinal | Paulo Pierre MD | Matt Rivas | | | | | stenosis, | MD Víctor CEJA | | | | | lumbar | MEDICAL | [address] | | | | | region | [address] | [place], [place] | | | | | | [address] | [address] | | | | | | [place], | Phone: | | | | | | [place] [address] | [phone] | | | | | | Phone: | Fax: | | | | | | [phone] | [phone] | | | | | | Fax: | | | | | | | [phone] | | +--------+--------+ + + + + Encounter Details +--------+---------+ + + + | Date | Type | Department | Care Team | Description | +--------+---------+ + + + | 02/15/ | Office | Orthopaedic Spine | Matt South | Chronic radicular | | 2016 | Visit | Center at [facility] [address] | Rob Pierre MD [address] | low back pain | | | | [address] | [address] | (Primary Dx); | | | | Mailcode: CH8N | [place], [place] | Deconditioned low | | | | [facility] for [facility] | [address] | back; Osteomyelitis | | | | and Healing, | [phone] | of spine (HCC); | | | | Building | | Pseudoarthrosis of | | | | Floor [place], [place] | | lumbar spine; S/P | | | | [address] | | lumbar spinal | | | | [phone] | | fusion; | | | | | | Spondylolysis of | | | | | | lumbosacral region; | | | | | | Spondylolisthesis at | | | | | | L5-S1 level; | | | | | | Foraminal stenosis | | | | | | of lumbosacral | | | | | | region; Left foot | | | | | | drop; Radicular | | | | | | syndrome of right | | | | | | leg | +--------+---------+ + + + Social History + +-------+ +--------+------+ | Tobacco Use | Types | Packs/Day | Years | Date | | | | | Used | | + +-------+ +--------+------+ | Former Smoker | | | | | + +-------+ +--------+------+ + + +---------+ + | Alcohol Use | Drinks/Week | oz/Week | Comments | + + +---------+ + | Not Asked | 0 Standard drinks | 0.0 | [...] + + + | Blood Pressure | 134/83 | 02/16/2016 11:52 AM | | | | | PDT | | + + + + + | Pulse | 109 | 02/16/2016 11:52 AM | | | | | PDT | | + + + + + | Temperature | 36.7 C (98 F) | 02/16/2016 11:52 AM | | | | | PDT | | + + + + + | Respiratory Rate | 20 | 02/16/2016 11:52 AM | | | | | PDT | | + + + + + | Oxygen Saturation | - | - | | + + + + + | Inhaled Oxygen | - | - | | | Concentration | | | | + + + + + | Weight | 121.1 kg (267 lb) | 02/16/2016 11:52 AM | | | | | PDT | | + + + + + | Height | 193 cm (6' 4") | 02/16/2016 11:52 AM | | | | | PDT | | + + + + + | Body Mass Index | 32.5 | 02/16/2016 11:52 AM | | | | | PDT | | + + + + + documented in this encounter Patient Instructions Patient Instructions Matt South MD - 02/16/2016 1:05 PM PDT1. Consult to [facility]. To schedule your appointment, please call [phone]. 2. Consult to orthotics for left foot AFO. 3. Return to clinic in 3 months. 4. Pain management and long-term follow-up c/o PCP. documented in this encounter Progress Notes Matt South MD - 02/16/2016 12:01 PM PDTFormatting of this note might be dif ferent from the original. Referral Source: Paluo Rothman MD CC: Low back, buttock and leg pain HPI: Fredis Mustafa is a 55 y.o. male accompanied today by his . He presents with a 1 year history of remittent low back and buttock pain, worse and now rad iating down right leg into right foot following removal of broken spinal implants 07/07/15 co mplicated by a spinal infection s/p debridement and irrigation 07/21/15. Pain is described as aching, stabbing to sharp in character and 6 up to 10/10 in intensity. The symptoms are wor se on right side and radiates down posterolateral right buttock,thigh leg into lateral right foot. The pain is worse with standing or walking more than 15-20 minutes and better with r est, stretching, sitting and lying down. He has difficulty with gait. There is associated r emittent tingling and numbness over same areas, with intermittent left leg numbness and ting ling. There is a new left foot drop following the last surgery. No loss of bowel or bladder control. Past treatment includes PT last September 2015, chiropractor, [place] x 26 October 2015 with tem porary to poor result. Current pain medications include hydrocodone 4 tablets daily, Motrin . There is no history of depression, anxiety; no other psychiatric diagnosis. Prior surgery to the spine includes lumbar spinal fusion 1999 [place], cervical fusion 1998. There is no night pain, fever, chills nor recent unexplained weight loss. But seems to be sweating more profusely at night than before. Also currently being treated for an infected left ring finge r. PMH: includes diabetes, hypertension. Denies chronic heart or lung disease, history of canc er. Please see the intake form which I have reviewed for full details. PSH: s/p bilateral total hip replacements. Please see the intake form which I have reviewed for full details. Medications: Current outpatient prescriptions: cefPODOxime 200 mg oral tablet, , Disp: , Rf l: cyclobenzaprine 10 mg oral tablet, take 1/2-1 tablet by mouth three times a day (DO NOT KATHY E WHILE WORKING OR DRIVING), Disp: , Rfl: 1 DULoxetine 60 mg oral capsule,delayed release(DR/EC), , Disp: , Rfl: gabapentin 300 mg oral capsule, , Disp: , Rfl: HYDROcodone-acetaminophen 10-325 mg oral tablet, take 1-2 tablets by mouth every 8 hours if needed for pain, Disp: , Rfl: 0 ibuprofen 600 mg oral tablet, , Disp: , Rfl: irbesartan-hydrochlorothiazide 150-12.5 mg oral tablet, , Disp: , Rfl: LEVEMIR 100 unit/mL subcutaneous solution, , Disp: , Rfl: LORazepam 1 mg oral tablet, take 1/2 to 1 tablet by mouth twice a day, Disp: , Rfl: 0 metFORMIN 1,000 mg oral tablet, , Disp: , Rfl: traMADol 50 mg oral tablet, , Disp: , Rfl: 0 Allergies: Allergies Allergen Reactions Codeine Rash "makes my skin crawl" Social Hx: 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 Weekly physical activ ity regimen: otherwise sedentary. Tobacco history is none. Alcohol history is 1 drink a year. Family Hx: I reviewed and noncontributory. ROS: Please see the intake form which I have reviewed for full details. Physical Exam: General: The patient is an obese, well-formed, well nourished individual in no acute distr ess who appears of stated age. Affect and mood are normal. Patient is normocephalic. Liset pheral pulses are normal. Breathing is normal. Abdomen is soft, non-tender. Skin is kath l color, temperature. No significant lymphedema. Station and gait are forward leaning and antalgic to the right. Vital Signs: BP 134/83 | Pulse 109 | Temp (Src) 36.7 C (98 F) (Oral) | RR 20 | Ht 1.93 m (6' 4") | Wt 121.11 kg (267 lb) | BMI 32.51 kg/(m^2) Musculoskeletal: The spine is not balanced in both coronal and sagittal planes: leaning f orward and to the right. Examination of the lumbar spine demonstrates no skin changes or are as of induration. There are no masses. Healed posterior midline lumbosacral surgical incisio n. Direct tenderness to paraspinal areas at right>left lower lumbosacral, superior gluteal a nd deep buttock (piriformis) areas. Flexibility is not tested today. Hip and knee ROM are r easonably pain-free. There is a dressing over the left ring finger. Neurologic: Muscle strength is 5/5 in all motor groups of the lower extremities except 2/5 left EHL and left tibialis anterior. Deep tendon reflexes are 1/4 at the biceps, triceps an d wrist extensors and 0/4 over both knees and both ankles. There is no Hoffmans sign. There is no difficulty with rapid alternating movements in upper extremities. Toes are downgoing. There is no ankle clonus. Sensation is grossly intact to light touch throughout. Straight leg raising is negative. Radiographs independently reviewed: CT of LS spine from outside radiology 12/22/15 show post-laminectomy changes L5- S1; pedicle screw tracts bilaterally L4-S1; grade 1 lytic spondylolisthesis L5-S1; reasonabl e-looking bilateral facet fusion L4-5; no convincing bridging bone between posterior element s of L5-S1; adjacent level degenerative changes with intradiscal vacuum disc phenomenon L3-4 and L5-S1; non-contiguous degeneration at T11-L2. MRI of LS spine from outside radiology 11/06/15 show concordant findings with additional no te of variable bilateral foraminal stenosis worst at L3-S1 and moderate central spinal steno sis worst at L3-4. NM bone scan show increased uptake in a degenerative pattern over LS spine. No focal uptak e around bilateral hip replacements. Assessment/Plan: 55 year old male with chronic radicular right low back, buttock and leg pain with left foot drop following lumbosacral spinal hardware removal 07/07/15 complicated by post-op infection s/p debridement and irrigation 07/21/15; lytic spondylolisthesis with ps eudoarthrosis L5-S1; lumbosacral central spinal and foraminal stenosis; multiple medical com orbidities; infected left ring finger; no evidence of significant cord or other nerve root c ompression at the current time I went over my history, exam and imaging findings with Fredis today and discussed the natural history and approach to management of chronic radicular right low back, buttock and leg pain with left foot drop following lumbosacral spinal hardware removal 07/07/15 complicated by p ost-op infection s/p debridement and irrigation 07/21/15; lytic spondylolisthesis with pseudo arthrosis L5-S1; lumbosacral central spinal and foraminal stenosis; multiple medical comorbi dities; infected left ring finger. We discussed the role of activity and lifestyle modificat ion, pain relief modalities, proper back mechanics, PT and regular conditioning exercises, j udicious short-term use of pain-relievers and anti-inflammatories, spinal injections and caroline sorin in relation to right low back, buttock and leg pain with left foot drop. Fredis 's condition is chronic, complex, multifactorial and would benefit from a multidiscipli nary approach. Fredis would like to exhaust non-surgical treatment options before considering m ore surgery. I believe this is reasonable and prudent, given his other medical comorbidities including the current infection in his hand, non-urgent nature of his problem, elective pauline ure and large magnitude of possible surgical intervention. 1. Consult to [facility]. To schedule your appointment, please call [phone]. 2. Consult to orthotics for left foot AFO. 3. Return to clinic in 3 months. 4. Pain management and long-term follow-up c/o PCP. Please feel free to contact us should you or Fredis have any further spine questions or concer ns. I spent 66 minutes with the patient. Greater than 50% of the time was spent counseling the patient regarding chronic radicular right low back, buttock and leg pain with left foot ale p following lumbosacral spinal hardware removal 07/07/15 complicated by post-op infection s/ p debridement and irrigation 07/21/15; lytic spondylolisthesis with pseudoarthrosis L5-S1; madelyn mbosacral central spinal and foraminal stenosis; multiple medical comorbidities; infected le ft ring finger. documented in this encounter Plan of Treatment + +---------+--------+ + + | Name | Type | Priori | Associated Diagnoses | Order Schedule | | | | ty | | | + +---------+--------+ + + | ORTHOTIC REFERRAL | Consult | Routin | Left foot drop | Ordered: 02/16/2016 | | | | e | | | + +---------+--------+ + + documented as of this encounter Procedures + +--------+ + + + | Procedure Name | Priori | Date/Time | Associated Diagnosis | Comments | | | ty | | | | + +--------+ + + + | RADIOLOGY | | 01/07/2016 | | Results for this | | | | 12:00 AM | | procedure are in the | | | | PDT | | results section. | + +--------+ + + + | RADIOLOGY | | 01/02/2016 | | Results for this | | | | 12:00 AM | | procedure are in the | | | | PDT | | results section. | + +--------+ + + + | RADIOLOGY | | 12/29/2015 | | Results for this | | | | 12:00 AM | | procedure are in the | | | | PDT | | results section. | + +--------+ + + + | RADIOLOGY | | 12/29/2015 | | Results for this | | | | 12:00 AM | | procedure are in the | | | | PDT | | results section. | + +--------+ + + + | RADIOLOGY | | 12/22/2015 | | Results for this [...] + documented in this encounter Results RADIOLOGY (01/07/2016 12:00 AM PDT) + + + | Narrative | Performed At | + + + | | | + + + RADIOLOGY (01/02/2016 12:00 AM PDT) + + + | Narrative | Performed At | + + + | | | + + + RADIOLOGY (12/29/2015 12:00 AM PDT) + + + | Narrative | Performed At | + + + | | | + + + RADIOLOGY (12/29/2015 12:00 AM PDT) + + + | Narrative | Performed At | + + + | | | + + + RADIOLOGY (12/22/2015 12:00 AM PDT) + + + | Narrative | Performed At | + + + | | | + + + RADIOLOGY (11/06/2015 12:00 AM PDT) + + + | Narrative | Performed At | + + + | | | + + + documented in this encounter Visit Diagnoses + + | Diagnosis | + + | Chronic radicular low back pain - Primary Thoracic or lumbosacral neuritis or | | radiculitis, unspecified | + + | Deconditioned low back Muscle weakness (generalized) | + + | Osteomyelitis of spine (HCC) Unspecified osteomyelitis, other specified site | + + | 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
--- OUTSIDE RECORDS SUMMARY | ~2020-02-04 | XMS | Encounter Summary ---
Demographics + + + | Address | [address] | | | [place] [address] | + + + | Home Phone [...] [place] | | | | | [address] | | + + + + + | Leslie Lentz | ECON | Unknown | | + + + + + Care Team Providers + +------+ + | Care Test Preparer Name | Role | Phone | + +------+ + | Aggie Dunn NP | PCP | | + +------+ + Reason for Visit + +--------+ + | Reason | Onset | Comments | | | Date | | + +--------+ + | Neurosurgery | 01/23/ | Moved Appt Down | | Appointment | 2018 | | + +--------+ + Encounter Details +--------+ + + + + | Date | Type | Department | Care Team | Description | +--------+ + + + + | 01/23/ | Telephone | [facility] | Kai Gillespie MD | Neurosurgery | | 2018 | | NEUROSURGERY [address] | [address] | Appointment (Moved | | | | [address] | [place] [address] | Appt Down) | | | | ELIAS [place] | [phone] | | | | | [address] | | | | | | [phone] | | | +--------+ + + + [...] this encounter Miscellaneous Notes Telephone Encounter - Miriam Boyer - 01/23/2018 2:02 PM PDTReschedule: Outcome: Left Voicemail If Someone Else, Who: Tod From: 01/27 Tod To: 01/27 @ 12:30pm robert/Kasi Baron Reason: Patient Needed to See Jose Miguel Baron Number: 1 Communication: None, patient does not have MyChart and a letter will not get to him in time . Note: No imaging needed. documented in this enc ounter Plan of Treatment Not on filedocumented as of this encounter Visit Diagnoses Not on filedocumented in this encounter"
[~2020-02-04 20:00] MED LIST: ALPRAZOLAM1 MG PO; AMLODIPINE BES2.5 MG PO; BAYER CHEWABLE81 MG PO; CITALOPRAM HBR40 MG PO; DULOXETINE HCL30 MG PO; DULOXETINE HCL60 MG PO; GABAPENTIN300 MG PO; HYDROCODON-ACE1 EA10 PO; HYDROCODON-ACE1 EAC8 PO; IBUPROFEN800 MG PO; IRBESARTAN-HCT1 EACH PO; LANTUS100 UNITS/ SUB-Q; LEVEMIR100 UNIT/1 SUB-Q; MELOXICAM15 MG PO; METHOCARBAMOL750 MG PO; ZOLPIDEM TARTRA10 MG PO
[2020-02-04] MEDS ORDERED: MAPAP500 MG PO (21:18)
[2020-02-04] MEDS ORDERED: LIPITOR40 MG PO (21:19)
[2020-02-04] MEDS ORDERED: NORVASC10 MG PO (21:19)
[2020-02-04] MEDS ORDERED: AVALIDE 150-121 EACH PO (21:20)
[2020-02-04] MEDS ORDERED: ATROPINE SULFATE5 ML OP (21:20)
[2020-02-04] MEDS ORDERED: CYCLOBENZAPRINE10 MG PO (21:21)
[2020-02-04] MEDS ORDERED: D3-200050 MCG PO (21:21)
[2020-02-04] MEDS ORDERED: CYMBALTA60 MG PO (21:22)
[2020-02-04] MEDS ORDERED: COSOPT PF EYE1 EACH OPTH (21:22)
[2020-02-04] MEDS ORDERED: FENTANYL1 EAC1 TD (21:23)
[2020-02-04] MEDS ORDERED: DILAUDID2 MG PO (21:24)
[2020-02-04] MEDS ORDERED: LORAZEPAM0.5 GM MISC (21:24)
[2020-02-04] MEDS ORDERED: MOBIC15 MG PO (21:25)
[2020-02-04] MEDS ORDERED: MAGNESIUM250 M1 PO (21:25)
[2020-02-04] MEDS ORDERED: KAPSPARGO SPRIN25 MG PO (21:25)
[2020-02-05] MEDS ORDERED: LIDODERM1 EACH TOP (01:04)
[2020-02-05] MEDS ORDERED: DIAZEPAM5 MG PO (01:04)
== END 2020-02-05 01:43 | disposition home or self-care (01) ==
LOC: ED 20:00
DX: M54.5 Low back pain (principal); E11.9 Type 2 diabetes mellitus without complications; I10 Essential (primary) hypertension; Z87.891 Personal history of nicotine dependence; Z88.5 Allergy status to narcotic agent; Z79.899 Other long term (current) drug therapy; Z79.891 Long term (current) use of opiate analgesic; Z79.4 Long term (current) use of insulin
CPT/HCPCS: 80053; 81001; 83605; 85025; 99283; A9270

== ENCOUNTER 2020-05-16 13:57 | Emergency (ER) | payer MEDICARE, OTHER ==
[~2020-05-16] VITALS: Ht 193 cm; Wt 111.6 kg
[~2020-05-16 13:57] MED LIST changes: +ATROPINE SULFATE5 ML OP; +AVALIDE 150-121 EACH PO; +COSOPT PF EYE1 EACH OPTH; +CYCLOBENZAPRINE10 MG PO; +CYMBALTA60 MG PO; +D3-200050 MCG PO; +DIAZEPAM5 MG PO; +DILAUDID2 MG PO; +FENTANYL1 EAC1 TD; +KAPSPARGO SPRIN25 MG PO; +LIDODERM1 EACH TOP; +LIPITOR40 MG PO; +LORAZEPAM0.5 GM MISC; +MAGNESIUM250 M1 PO; +MAPAP500 MG PO; +MOBIC15 MG PO; +NORVASC10 MG PO
[2020-05-16] MEDS ORDERED: ONDANSETRON ODT4 MG PO (14:27)
[2020-05-16] MEDS ORDERED: PANTOPRAZOLE SO20 MG PO (14:27)
[2020-05-16] MEDS ORDERED: FAMOTIDINE20 MG PO (14:27)
[2020-05-16] MEDS ORDERED: METOCLOPRAMIDE10 MG PO (14:28)
[2020-05-16] MEDS ORDERED: CATAPRES0.1 MG PO (17:39)
== END 2020-05-16 17:50 | disposition home or self-care (01) ==
LOC: ED 13:57
DX: F11.23 Opioid dependence with withdrawal (principal); R10.9 Unspecified abdominal pain; E11.9 Type 2 diabetes mellitus without complications; I10 Essential (primary) hypertension; Z87.891 Personal history of nicotine dependence; Z88.5 Allergy status to narcotic agent; Z79.899 Other long term (current) drug therapy; Z79.4 Long term (current) use of insulin
CPT/HCPCS: 80053; 83690; 85025; 96374; 96375; 99284-25; C9113; J1200; J2405; J7030

== ENCOUNTER 2020-12-14 12:10 | Emergency (ER) | payer MEDICARE, OTHER ==
[~2020-12-14] VITALS: Ht 193 cm; Wt 111.6 kg
[~2020-12-14 12:10] MED LIST changes: +CATAPRES0.1 MG PO; +FAMOTIDINE20 MG PO; +METOCLOPRAMIDE10 MG PO; +ONDANSETRON ODT4 MG PO; +PANTOPRAZOLE SO20 MG PO
--- NOTE | 2020-12-14 12:56 | EKG ---
[facility] [address] [facility] Doc [place] [address] Signed Normal sinus rhythm Normal ECG No previous ECGs available Confirmed by KM BOLAÑOS MD ([id number]) on 12/14/2020 12:55:50 PM Electronically Signed By: KM BOLAÑOS MD 12/14/20 1256 PATIENT NAME: CARLOS LONG AREN Electrocardiogram DATE OF : 56 PHYSICIAN: KM BOLAÑOS MD REPORT #: [id number] REPORT IS CONFIDENTIAL AND NOT TO BE RELEASED WITHOUT AUTHORIZATION
== END 2020-12-14 16:11 | disposition home or self-care (01) ==
LOC: ED 12:10
DX: R07.89 Other chest pain (principal); E11.9 Type 2 diabetes mellitus without complications; I10 Essential (primary) hypertension; Z87.891 Personal history of nicotine dependence; Z88.5 Allergy status to narcotic agent; Z79.899 Other long term (current) drug therapy; Z20.822 Contact with and (suspected) exposure to COVID-19
CPT/HCPCS: 71045; 80053; 83735; 84484; 85025; 93005; 93010; 99285-25; C9803; U0003

== ENCOUNTER 2021-05-14 12:11 | Emergency (ER) | payer MEDICARE, OTHER ==
[~2021-05-14] VITALS: Ht 193 cm; Wt 117.9 kg
[2021-05-14] MEDS ORDERED: HYDROCODON-ACE1 EAC8 PO (12:26)
[2021-05-14] MEDS ORDERED: HYDROXYZINE HCL25 MG PO (12:26)
[2021-05-14] MEDS ORDERED: CYCLOBENZAPRINE10 MG PO (12:27)
--- NOTE | 2021-05-16 11:44 | EKG ---
[facility] [address] [facility] Doc [place] [address] Signed Normal sinus rhythm Normal ECG When compared with ECG of 14-DEC-2020 12:14, No significant change was found Confirmed by KM BOLAÑOS MD ([id number]) on 05/16/2021 11:43:50 AM Electronically Signed By: KM BOLAÑOS MD 05/16/21 1144 PATIENT NAME: CARLOS LONG Electrocardiogram DATE OF : 56 PHYSICIAN: KM BOLAÑOS MD REPORT #: [id number] REPORT IS CONFIDENTIAL AND NOT TO BE RELEASED WITHOUT AUTHORIZATION
== END 2021-05-14 13:17 | disposition left against medical advice (07) ==
LOC: ED 12:11
DX: Z53.21 Procedure and treatment not carried out due to patient leaving prior to being seen by health care provider (principal)
CPT/HCPCS: 71045; 80053; 83735; 84484; 85025; 93005; 93010

== ENCOUNTER 2022-02-10 11:34 | Emergency (ER) | payer MEDICARE ==
[~2022-02-10] VITALS: Ht 193 cm; Wt 131.6 kg
[~2022-02-10 11:34] MED LIST changes: +HYDROXYZINE HCL25 MG PO; -MOBIC15 MG PO
[2022-02-10] MEDS ORDERED: HYDROCHLOROTHIA25 MG PO (12:26)
[2022-02-10] MEDS ORDERED: POTASSIUM CHLO10 ME1 PO (12:27)
[2022-02-10] MEDS ORDERED: FUROSEMIDE20 MG PO (12:27)
[2022-02-10] MEDS ORDERED: DOXYCYCLINE HY100 MG PO (13:19)
== END 2022-02-10 13:48 | disposition home or self-care (01) ==
LOC: ED 11:34
DX: I87.8 Other specified disorders of veins (principal); L30.9 Dermatitis, unspecified; E11.9 Type 2 diabetes mellitus without complications; I10 Essential (primary) hypertension; Z87.891 Personal history of nicotine dependence; Z88.5 Allergy status to narcotic agent
CPT/HCPCS: 99283

== ENCOUNTER 2022-02-15 10:59 | Inpatient (IN) | payer MEDICARE ==
[~2022-02-15] VITALS: Ht 193 cm; Wt 118.7 kg
[~2022-02-15 10:59] MED LIST changes: +DOXYCYCLINE HY100 MG PO; +FUROSEMIDE20 MG PO; +HYDROCHLOROTHIA25 MG PO; +POTASSIUM CHLO10 ME1 PO
--- NOTE | 2022-02-15 22:15 | EKG ---
[facility] [address] [facility] [address] [place] [address] Signed Normal sinus rhythm Prolonged QT Abnormal ECG Confirmed by Lela Painter MD () on 02/15/2022 10:14:50 PM Electronically Signed By: ELLA PAINTER MD 02/15/222214 PATIENT NAME: CARLOS LONG Electrocardiogram DATE OF : 56 PHYSICIAN: LELA PAINTER MD REPORT #: [id number] REPORT IS CONFIDENTIAL AND NOT TO BE RELEASED WITHOUT AUTHORIZATION
--- NOTE | 2022-02-15 22:20 | NUR ---
Admin tylenol 650mg po and melatonin 3mg po for reports of leg pain and insomnia.
--- NOTE | 2022-02-16 02:31 | NUR ---
0130 BEDSIDE HANDOFF FROM TARAN SALOMON. PATIENT RESTING UP IN RECLINER. CALLING APPROPRIATELY. 0215 IV ANTIBIOTICS INFUSING. IV TO RIGHT AC FLUSHES WELL. RESTING UP IN CHAIR, PROVIDED WARM BLANKET.
--- NOTE | 2022-02-16 02:41 | NUR ---
PT CALLS TO REQUEST TO LAY BACK DOWN. SBA, FWW BACK TO BED. NO OTHER NEEDS AT THIS TIME. CALL LIGHT IN REACH.
--- NOTE | 2022-02-16 04:41 | NUR ---
PATIENT UP TO BATHROOM 3-4 TIMES AN HOUR VOIDING 10ML OF URINE TO >100 ML. PATIENT APPEARED RESTLESS, COMPLAINING OF PAIN IN BILATERAL LOWER ETREMITIES, STATING " FEELS LIKE BURNING, WITH PINS AND NEEDLES" SENT MESSAGE TO DR. PAINTER TO EVALUATE. PATIENT RECIEVED PRN TYLENOL AND MELATONIN, APPEARS INEFFECTIVE FOR PAIN CONTROL. TELE #4, APPEARS TO BE IN SR. LUNG SOUNDS FINE CRACKELS IN LOWER BASES. 1 PLUS EDEMA TO LOWER EXTREMITIES. PLAN FOR PATIENT TO HAVE ECHO THIS MORNING, STRICT I&0, DAILY WT- 119KG THIS MORNING. HAS RECIEVED 1X DOSE OF IV LASIX. DM CONTROLLED WITH SLIDING SCALE, ACHS, LANTUS ADMINISTERED AT HS.
--- NOTE | 2022-02-16 05:39 | NUR ---
LAB INTO ROOM, PATIENT SITTING AT BEDSIDE. USED CALL LIGHT TO REQUEST PAIN MEDICATION, PATIENT COMPLAINS OF BACK PAIN AND LOWER LEG PAIN 8/10 ON PAIN SCALE. ADMINISTERED TYELONOL 650 MG PO PER MAR. PATIENT STATES " I WOULD NORMALLY TAKE A PAIN PILL FOR THIS, CAN I PLEASE HAVE MY REGULAR STUFF". TOLD PATIENT WOULD DISCUSS PAIN MEDICATION WITH DR. PAINTER IN THE MORNING.
--- NOTE | 2022-02-16 07:33 | NUR ---
PT IN CHAIR. BS TAKEN. NO NEEDS. CALL LIGHT WITHIN REACH.
--- NOTE | 2022-02-16 07:44 | NUR ---
PT UP IN THE CHAIR AND INTERACTIVE DURING SHIFT REPORT. RN REPORTS POOR PAIN CONTROL AND VERY LITTLE SLEEP DURING NOC. REPORT PASSED TO CHARGE NURSE. PT UP TO TOILET INDEPENDANTLY RETURNS TO REST IN BED. ECHO TO BE DONE SHORTLY
--- NOTE | 2022-02-16 08:40 | NUR ---
CALL LIGHT ANSWERED. RADIOLOGY DONE W PT. PT STANDING IN ROOM AND ASSISTED BACK TO CHAIR USING FWW SBA. PT GIVEN GOWN AND BLANKET. FOOD TRAY PLACED IN FRONT OF PT. RN NOTIFIED THAT PT NEEDS TO BE HOOKED BACK UP TO HIS IV. PT HAS NO FURTHER NEEDS. CALL LIGHT IS WITHIN REACH.
[2022-02-16] MEDS ORDERED: OXYCODONE HCL10 MG PO (08:59)
[2022-02-16] MEDS ORDERED: PREGABALIN200 MG PO (09:00)
--- NOTE | 2022-02-16 09:08 | NUR ---
DR PAINTER CONTACTED FACE TO FACE UPDATED R/T PAIN AND REGULAR MEDS. ORDERS WRITTEN. ECHO CARDIOGRAM UNFINISHED, PT REPORTS HE WAS UNABLE TO KEEP FROM TWITCHING AND JERKING. CALLS FOR ASSIST TO TOILET THEN RETURNS TO BED, WARM BLANKET PROVIDED
--- NOTE | 2022-02-16 10:04 | NUR ---
pt call light answered. pt needing to use bathroom. urinal was full as well and had 250 out. pt assisted to bathroom using fww sba. pt had 300 urine out. pt assisted back to chair. rn in room. no needs.
[2022-02-16] MEDS ORDERED: IRBESARTAN-HCT1 EACH PO (10:28)
--- NOTE | 2022-02-16 11:10 | NUR ---
PT CALL LIGHT ANSWERED. PT STATED HE NEEDED TO USE RESTROOM. THE URINAL BY HIM WAS USED. THE PT WANTED TO TRY TO HAVE A BM. PT ASSISTED TO BATHROOM BY JOE Bahena FWW. PT INSTRUCTED TO PULL CORD. SOON AFTER PT PULLED CORD AND WAS NOT ABLE TO VOID WHATSOEVER. PT ASSISTED BACK TO CHAIR. NO FURTHER NEEDS. CALL LIGHT WITHIN REACH.
--- NOTE | 2022-02-16 11:25 | NUR ---
ASKED PT IF PAIN MEDS WERE EFFECTIVE HE STATES "IT HELPED, BUT NOT VERY MUCH" HE CONTINUES UP IN THE CHAIR, DOZING FREQUENTLY. APPEARS RELAXED AND SLEEPY. DENIES NEEDS AT THIS TIME. HAS USED THE CALL LIGHT APPROPRIATELY THIS SHIFT. PICTURES OF ALBERTO PETTIT TAKEN AND FILED
[2022-02-16] MEDS ORDERED: GLUCAGEN1 M1 INJ (11:44)
[2022-02-16] MEDS ORDERED: TRESIBA100 UNIT/1 SUB-Q (11:45)
[2022-02-16] MEDS ORDERED: LIDODERM1 EACH TOP (11:46)
[2022-02-16] MEDS ORDERED: TOPROL XL25 MG PO (11:48)
[2022-02-16] MEDS ORDERED: PROTONIX40 MG PO (11:48)
[2022-02-16] MEDS ORDERED: SENOKOT-S TABL1 EACH PO (11:49)
[2022-02-16] MEDS ORDERED: MIRALAX119 GM PO (11:49)
[2022-02-16] MEDS ORDERED: CARAFATE1 GM PO (11:50)
--- NOTE | 2022-02-16 11:53 | NUR ---
MED REC COMPLETE
--- NOTE | 2022-02-16 14:30 | NUR ---
PT ASSISTED TO SHOWER SBA W FWW. PT SELF SHOWERED MOST OF THE TIME AND FOOT SPECIALIST IN TO ASSIST WITH WASH FEET. PT ASSISTED W DRYING OFF. NEW GOWN, BRIEF, AND SOCKS PUT ON. DEODARANT APPLIED. PT ASSISTED BACK TO THE CHAIR SBA USING FWW. BLANKETS FROM WARMER GIVEN. NEW ICE WATER PROVIDED. LINENS HAVE BEEN CHANGED. RN NOW PRESENT IN ROOM. NO FURTHER NEEDS. CALL LIGHT WITHIN REACH.
--- NOTE | 2022-02-16 15:00 | NUR ---
PT JUST BACK FROM THE SHOWER AGREES HE FEELS "SO MUCH BETTER" HE DOES C/O OF SOME STOMACH UPSET DENIES EMESIS. ZOFRAN GIVEN A LITTLE OVER AN HOUR AGO. AGREES TO TRY TRACIE DAREN AND SOME SODA CRACKERS.
--- NOTE | 2022-02-16 16:37 | NUR ---
SBA WITH AMBULATION PER PT REQUEST HE MAKES 2 LAPS AROUND THE HALLS THEN RETURNS TO HIS CHAIR. AGREES HIS STOMACHE HAS SETTLED AFTER THE CRACKERS AND DAREN. DENIES FURTHER NEEDS AT THIS TIME
--- NOTE | 2022-02-16 20:03 | NUR ---
VISIT WITH DR ABAD ABOUT WOUND DRSG - OK TO PLACE ABD AND [place] WRAP.
--- NOTE | 2022-02-16 20:40 | NUR ---
BLE WRAPPED WITH ABD PAD AND COVERED WITH COBAN TO KEEP IN PLACE PER DR. SCHULER. GOAL IS TO KEEP THE FLUID FROM WEEPING DOWN LEG AND FEET DRY. PT TOLLERATED WELL - PREVIOUS PICTURES OF WOUNDS IN CHART.
--- NOTE | 2022-02-16 22:19 | NUR ---
SBA. PATIENT UP FROM CHAIR AND USED THE URINAL. PATIEN IS IN BED NOW. WARM BLANKET PROVIDED. CALL LIGHT WITHIN REACH. ROOM LIGHTS OFF.
--- NOTE | 2022-02-16 22:44 | NUR ---
pt amb in room with rn, void 50 ml in urinal - iv abx fusing. denies needs.
--- NOTE | 2022-02-16 22:53 | NUR ---
PATIENT IS UP IN THE CHAIR THIS TIME. WARM BLANKET PROVIDED.
--- NOTE | 2022-02-16 23:26 | NUR ---
PATIENT CALLED STATED "IM READY TO GO TO BED". PATIENT IS BACK IN BED AT THIS TIME. NO OTHER NEEDS AT THIS TIME. URINAl emptied 100ML AND RECORDED.
--- NOTE | 2022-02-17 00:45 | NUR ---
pt void 600 ml of yellow urine, sitting at side of bed, pt requests some crackers - rn provided broth and crackers for comfort.
--- NOTE | 2022-02-17 01:43 | NUR ---
pt called for po tylenol - rn found pt sleeping soundly in , awoken for assessment and meds. pt up in , warm blkt given. iv abx fusing.
--- NOTE | 2022-02-17 02:45 | NUR ---
PT AMB THE [facility] WITH STAFF, TOLLERATED WELL - BACK TO [facility] WITH CALL LIGHT IN REACH, REPORTS BACK FEELS BETTER WHEN HE MOVES.
--- NOTE | 2022-02-17 05:00 | NUR ---
pt amb cho again with staff - amb very well with fww. denies needs - voiding qs. call light in reach.
--- NOTE | 2022-02-17 07:25 | NUR ---
BEDSIDE HANDOFF REPORT RECEIVED FROM [place] RN. PT IN BATHROOM.
--- NOTE | 2022-02-17 09:50 | NUR ---
MORNING ASSESSMENT COMPLETED. PT REQUESTING PAIN MEDICATION FOR BACK P[AIN 8/10, TYLENOL AND OXYCODONE GIVEN. NEW IV STARTED TO RIGHT FOREARM, 20G, CEFEPIME INFUSING. DRESSING CHANGE TO BILATERAL LOWER LEGS COMPLETED, DR. ABAD TO BEDSIDE TO EVALUATE RIGHT LOWER LEG WOUNDS. WOUNDS CLEANSED ADAPTIC APPLIED AND COVERED WITH DRY GAUZE AND ABD, SECURED WITH NEWTON BANDAGES. PT REQUESTING TO WALK IN [place], JOANIE TO ASSIST.
--- NOTE | 2022-02-17 11:40 | NUR ---
Pt plans on dc to home to [place] today. Dr. Hinton will write orders for this pt. No needs for discharge.
[2022-02-17] MEDS ORDERED: NEURONTIN300 MG PO (12:02)
--- NOTE | 2022-02-17 12:50 | NUR ---
PATIENT COMPLAINING OF 8/10 BACK PAIN. PATIENT GIVEN PRN PAIN MEDICATION PRIOR TO DISCHARGE. LION WITH VANDANA FINISHED TALKING WITH PATIENT. NEW PRESCRIPTION WILL BE SENT OF ABX TO PHARMACY. PATIENT REPEATED INFORMATION BACK TO THIS RN. NO OTHER QUESTIONS AT THIS TIME. AMBULANCE ATTENDANT AT THE BEDSIDE TOP DISCHARGE PATIENT.
--- NOTE | 2022-02-17 12:54 | NUR ---
PATIENT TAKEN BY THE ANNOUNCER TO THE FRONT VIA WHEELCHAIR. ALL DISCHAGE INSTRUCTIONS WERE ALREADY REVIEWED WITH PATIENT WITH HIS PRIMARY CARE [facility].
--- NOTE | 2022-02-17 14:00 | NUR ---
Recieved HH and wound clinic orders for this pt. Called and spoke with Fredis. Updated he have either wound clinic or HH for management of his wounds for cellulitis. He would like the Wound clinic and states he is already seen by the clinic in [place] at [facility]. I call the wound clinic and they stated he has no showed yesterday. Let them know he was hospitalized. Dr Hinton signed their wound care orders, face sheet, H&P, DC summary, their orders for wound care signed and all faxed to [facility] wound clinic. Pts PCP is Kala Lala at [facility] in [place].
== END 2022-02-17 12:55 | disposition home or self-care (01) | DRG 602 ==
LOC: ED 10:59 → MS 18:05
PROVIDERS: ADMIT Family Medicine; ATTEND Internal Medicine
DX: L03.116 Cellulitis of left lower limb (principal); I50.33 Acute on chronic diastolic (congestive) heart failure; E11.9 Type 2 diabetes mellitus without complications; L03.115 Cellulitis of right lower limb; Z66 Do not resuscitate; Z88.5 Allergy status to narcotic agent; G89.29 Other chronic pain; Z87.891 Personal history of nicotine dependence; Z96.643 Presence of artificial hip joint, bilateral; Z98.890 Other specified postprocedural states; Z90.49 Acquired absence of other specified parts of digestive tract; Z79.899 Other long term (current) drug therapy; Z20.822 Contact with and (suspected) exposure to COVID-19
CPT/HCPCS: 36415; 71045; 80053; 80202; 81001; 83036; 83690; 83735; 83880; 84484; 85025; 87040; 87070; 87075; 87205; 93005; 93010; 93306; 96374; 99285-25; A9270; C9803; J0692; J1650; J1815; J1940; J2405; J3370; J7060; U0003

== ENCOUNTER 2023-01-13 09:56 | Emergency (ER) | payer MEDICARE, OTHER ==
[~2023-01-13] VITALS: Ht 193 cm; Wt 118.4 kg
[~2023-01-13 09:56] MED LIST changes: +CARAFATE1 GM PO; +GLUCAGEN1 M1 INJ; +MIRALAX119 GM PO; +NEURONTIN300 MG PO; +OXYCODONE HCL10 MG PO; +PREGABALIN200 MG PO; +PROTONIX40 MG PO; +SENOKOT-S TABL1 EACH PO; +TOPROL XL25 MG PO; +TRESIBA100 UNIT/1 SUB-Q
[2023-01-13 11:40] LABS: BASOPHILS 0.4 % (0-2); EOSINOPHILS 0.7 % (0-6); HEMATOCRIT 43.7 % (35.0-50.0); HEMOGLOBIN 14.7 g/dL (12.0-18.0); LYMPHOCYTES 12.6 % (24-44); MCHC 33.5 g/dl (30-36); MCV 89.4 fl (81-99); MONOCYTES 6.6 % (0-12); NEUTROPHILS 79.7 % (39-80); PLATELET COUNT 125 K/uL (140-440); RBC 4.89 M/ul (4.3-5.7); RDW 14.1 (10.5-15.0)
[2023-01-13 11:55] LABS: ALBUMIN 3.2 g/dL (3.4-5.0); ALBUMIN/GLOBULIN RATIO 0.94 (1.1-2.4); ANION GAP 11.4 (7-21); BILIRUBIN, TOTAL 0.7 ng/dL (0.2-1.0); BUN/CREATININE RATIO 22.98 (6.0-28.6); CALCIUM 9.1 mg/dL (8.5-10.1); CREATININE, SERUM 0.87 mg/dL (0.70-1.30); POTASSIUM 4.4 mmol/L (3.5-5.1); PROTEIN, TOTAL 6.6 g/dL (6.4-8.2)
[2023-01-13] MEDS ORDERED: ONDANSETRON ODT8 MG PO (12:51)
[2023-01-13] MEDS ORDERED: CARAFATE1 GM PO (12:51)
[2023-01-13] MEDS ORDERED: LIDOCAINE HCL100 ML MT (12:51)
[2023-01-13] MEDS ORDERED: PROMETHAZINE HC25 M1 PO (12:51)
[2023-01-13 13:00] VITALS: BP 138/87
== END 2023-01-13 13:01 | disposition home or self-care (01) ==
LOC: ED 09:56
PROVIDERS: Emergency Medicine
DX: R10.13 Epigastric pain (principal); E11.9 Type 2 diabetes mellitus without complications; I10 Essential (primary) hypertension; Z87.891 Personal history of nicotine dependence; Z88.5 Allergy status to narcotic agent; Z79.899 Other long term (current) drug therapy; Z79.4 Long term (current) use of insulin
CPT/HCPCS: 36415; 80053; 83690; 84484; 85025; 96374; 96375; 96376; 99284-25; C9113; J2405; J7030